=== PATIENT | male | born 1950 | race Caucasian/White ===

== ENCOUNTER 2024-07-05 09:30 | Inpatient (IN) | payer MEDICARE, BC, SELFPAY ==
[2024-07-05] VITALS (17 sets, daily range): BP systolic 84–118; BP diastolic 55–80; PULSE 81–126; RESP 19–98; TEMP 36.1–36.9; O2SAT 97–100; BMI 21.8
--- NOTE | 2024-07-05 09:54 | EKG_ITS ---
[facility] Test Date: 2024-07-05 Pat Name: JUAN ANTONIO COELLO Department: Room: - Gender: Male Parole Agent: : [id number] Requested By: Berenice Stoner ([facility]) Lorenzo Order Number: [id number] Reading MD: Berenice Stoner ([facility]) Lorenzo Measurements Intervals [place] Rate: 129 P: 73 [place]: 135 QRS: 241 QRSD: 134 T: 64 QT: 328 QTc: 481 Interpretive Statements SINUS TACHYCARDIA MARKED RIGHT AXIS DEVIATION [QRS AXIS > 100] RIGHT BUNDLE BRANCH BLOCK [120+ ms QRS DURATION, UPRIGHT V1, 40+ ms S IN I/aVL/V4/V5/V6] No previous ECG available for comparison /store/S0/[id number].pdf
--- NOTE | 2024-07-05 09:54 | XR_ITS ---
Examination: PA lateral chest 2 views TECHNIQUE: Upright PA lateral chest 2 views Exam date and time: July 05, 2024 10:10 AM Comparison October 01, 2015 INDICATIONS: Onset chest pain today. FINDINGS: Diffuse right lung pneumonia Isolated scattered nodular opacities in the left lung No major cardiac enlargement IMPRESSION: Prominent diffuse right lung pneumonia
--- NOTE | 2024-07-05 09:55 | PD.EDRME ---
Rapid Medical Screening Exam RME Arrival date/time: 07/05/24 09:30 Is a 74-year-old male who presents to the emergency department with complaints of shortness of breath,. I have greeted and performed a focused initial assessment of this patient. Initial appropriate labs ordered at this time. A comprehensive ED assessment and evaluation of the patient and analysis of all test and completion of medical decision making process will be conducted by additional ED provider. Chief Complaint: Shortness of Breath/Dyspnea Time Seen by Provider: 07/05/24 09:41 Vital signs: Vital Signs Temperature 98.0 F 07/05/24 09:53 Pulse Rate 126 H 07/05/24 09:53 Respiratory Rate 22 H 07/05/24 09:53 Blood Pressure 93/57 L 07/05/24 09:53 Pulse Oximetry (%) 97 07/05/24 09:53 Oxygen Delivery Method Room Air 07/05/24 09:53
--- NOTE | 2024-07-05 10:21 | EDNOTE_ITS ---
ED SOB =RME/HPI General Chief Complaint: Shortness of Breath/Dyspnea Stated Complaint: SOB, COUGH, CONGESTION, TARRY STOOL Time Seen by Provider: 07/05/24 09:41 Arrival date/time: 07/05/24 09:30 RME / HPI RME / HPI Narrative: 07/05/24 09:30 Is a 74-year-old male who presents to the emergency department with complaints of shortness of breath,. I have greeted and performed a focused initial assessment of this patient. Initial appropriate labs ordered at this time. A comprehensive ED assessment and evaluation of the patient and analysis of all test and completion of medical decision making process will be conducted by additional ED provider. DR. LINDQUIST MAIN ED EVALUATION 74 year old male with history of CAD s/p PCI, hypertension, COPD presents to the ED for complaint of shortness of breath and cough beginning 2 weeks ago. Describes feeling he does not get enough air with no known modifying factors. Reportedly consulted with PCP Dr. Sotelo 2 days ago (07/03) and was prescribed Azythromycin which he began. Patient additionally complains of black tarry stools accompanied by abdominal pain beginning yesterday, totaling 3 episodes in the last 24 hours. Denies any history GI bleeds. Denies fevers, chills, sweats, chest pain, diarrhea, or urinary symptoms. additionally reports patient has lost 14 lbs in the last 4 months. Social hx: Active tobacco smoker Related Data Home Medications ?Medication ?Instructions ?Recorded ?Confirmed Trazodone * (DESYREL *) 100 mg PO HS #0 tabs 09/30/15 11/14/19 amlodipine 5 mg tablet (Norvasc) 5 mg PO QDAY #0 tabs 09/30/15 11/14/19 atorvastatin 10 mg tablet (Lipitor) 10 mg PO QDAY #0 tabs 09/30/15 11/14/19 benazepril 40 mg tablet (Lotensin) 40 mg PO QDAY #0 tabs 09/30/15 11/14/19 citalopram 40 mg tablet (Celexa) 40 mg PO QDAY #0 tabs 09/30/15 11/14/19 clopidogrel 75 mg tablet (Plavix) 75 mg PO QDAY #0 tabs 09/30/15 11/14/19 famotidine 20 mg tablet (Pepcid) 20 mg PO QAM #0 tabs 09/30/15 11/14/19 Allergies Allergy/AdvReac Type Severity Reaction Status Date / Time No Known Allergies Allergy Verified 11/14/19 07:23 Review of Systems Review of Systems Narrative Review of Systems: GEN: No fever, no chills, no weight loss EYES: No discharge, no visual changes, no pain HEENT: No ear pain, no congestion, no sore throat PULM: + shortness of breath, +cough CV: No chest pain, no palpitations GI: No nausea, no vomiting, no diarrhea, + pain, +black tarry stools, no constipation : No frequency, no urgency and no dysuria MUSC/SKEL No joint pain, no back pain SKIN: No rash PSYCH: No hallucinations, no depression HEME/LYMPH: No easy bleeding or bruising tendencies NEURO: No weakness, no headache Past Medical History Past Medical History CARDIAC: Positive Hypercholesterolemia and Hypertension RESPIRATORY: Positive Chronic Obstructive Pulmonary Disease (COPD) ENT: Positive Cataracts OTHER HISTORY: Positive Blood Transfusions, Chicken Pox, Measles and Mumps Family History FAMILY HISTORY: Positive Family Cardiac Disorders (BROTHERS) and Family Cancer (MOTHER/ BREAST CA) Surgical History SURGICAL: Positive Coronary Stent (X1 STENT 03/2019) Social History SMOKING STATUS: Heavy (> 1 pack/day) ED Exam Narrative Physical exam: GENERAL APPEARANCE: Well hydrated, well nourished. Tachypneic. VITALS: All vitals were reviewed and the pulse ox is []% on room air which is normal according to my interpretation. HEENT: Normocephalic, atramatic, EOMI, EACs are patent. There is no bulge or retraction. Throat without erythema or exudate. Moist oromucosa. No jaundice NECK: Supple, no JVD or bruits. CARDIOVASCULAR: Heart regular without S3-S4 or murmur. No rubs or gallops. LUNGS/CHEST: Clear to auscultation bilaterally. No rales, rhonchi, or wheezing. Normal inspection. ABDOMEN: Soft, nontender, with normal bowel sounds. No pulsatile masses. No rebound, rigidity, or guarding. No incarcerated hernia. Normal inspection and palpation. RECTAL EXAM: Rectal exam performed in presence of female nurse and scribe. Stool is black and tarry, guaiac strongly positive. EXTREMITIES: Normal inspection and palpation. No edema, clubbing, or cyanosis. Intact CSM SKIN: Warm and dry without rashes. Normal inspection. MUSCULOSKELETAL: Normal inspection. No gross deformity, full ROM all extremities NEURO: Alert and oriented x3. Cranial nerves II through XII grossly intact. There are no other motor or sensory deficits noted. PSYCHIATRIC: Normal mood and affect. No psychosis Course Quality Measures none Orders Category Date Time Status Bedside COVID-19 Antigen Test NOW Care 07/05/24 10:03 Active Bedside Influenza A&B Antigen Test NOW Care 07/05/24 10:03 Completed Assistant Professor Of Nursing STAT Care 07/05/24 09:54 Active Continuous Pulse Oximetry ONCE Care 07/05/24 09:54 Active EKG (ED ONLY) *Do not use* NOW Care 07/05/24 09:54 Completed Insert IV STAT Care 07/05/24 09:54 Active Saline [Insert IV] NOW Care 07/05/24 10:19 Active Transfuse,blood/blood products NOW Care 07/05/24 12:30 Active EKG (ED Only) Stat Exams 07/05/24 09:54 Draft XR chest 1V portable Stat Exams 07/05/24 09:54 Completed B-Type Natriuretic Peptide Stat Lab 07/05/24 10:17 Completed CBC Stat Lab 07/05/24 10:38 Completed Comprehensive Metabolic Panel Stat Lab 07/05/24 10:38 Completed Lipase Stat Lab 07/05/24 10:38 Completed Magnesium Stat Lab 07/05/24 10:38 Completed Partial Thromboplastin Time Stat Lab 07/05/24 10:38 Completed Prothrombin Time with INR Stat Lab 07/05/24 10:38 Completed Troponin I Stat Lab 07/05/24 10:38 Completed Type and Screen Stat Lab 07/05/24 10:38 Results prbc [Red Blood Cells] Stat Lab 07/05/24 10:38 Results 1 gm IV (PM) x1 Med 07/05/24 12:36 Ordered cefTRIAXone/D5w 1gm IV premix [Rocephin/D5w 1gm IV premix] 50 ml IV X1 Pantoprazole Inj [Protonix Inj] Med 07/05/24 10:33 Discontinued 40 mg IVP X1 ONE Sodium Chloride 0.9% 1000 ml [Ns] 1,000 ml Med 07/05/24 10:34 Discontinued IV 999 mls/hr Vital Signs Vital signs: Vital Signs Temperature 98.0 F 07/05/24 09:53 Pulse Rate 126 H 07/05/24 09:53 Respiratory Rate 22 H 07/05/24 09:53 Blood Pressure 93/57 L 07/05/24 09:53 Pulse Oximetry (%) 97 07/05/24 09:53 Oxygen Delivery Method Room Air 07/05/24 09:53 Shortness of Breath / Dyspnea MDM Narrative MDM Narrative:: Chest x-ray interpreted by me: Evidence of COPD. And scarring is present on the right side of the chest. Heart normal. Mediastinum normal. Normal bones. No CHF. No gross consolidation. No pneumothorax. CBC showing a white count of 20,000. Hemoglobin of 11. Platelet is adequate. Pro time is normal. PTT is negative. COVID-19 and influenza are negative. Magnesium is 2.7. Troponin negative. BNP is negative. Sodium is 133. BUN is 62 consistent with dehydration or upper GI bleed. Lipase is negative. Twelve-lead EKG at 1109 interpreted by me: Sinus rhythm. Heart rate 103. Right bundle branch block. No ST elevation or depression. No PVC. No STEMI. Regular rate and rhythm. When I saw the patient the first time, his blood pressure was 78 over palpable. We immediately gave him a liter of normal saline bolus. Blood pressure now is 92/55. Heart rate is still 103. I did rectal exam on him. We found the stool to be black tarry wiring is strongly positive. The rectal exam was done in the presence of his and nurses. We are going to transfuse him with 2 units of packed red blood cell. We are giving him IV Protonix. We gave him IV fluid 12:15 PM, I spoke to and discussed with Dr. Malave, GI specialist on-call. He agrees to consult on admission. 12:30 PM, I spoke to and discussed with Dr. Aceves, hospitalist on-call. He agreed to admit for further evaluation and treatment. Thank you Critical care time is approximately 35 minutes excluding any procedure. The high probability of sudden, clinically significant deterioration in the patient?s condition required the highest level of my preparedness to intervene urgently. The services I provided to this patient were to treat and/or prevent clinically significant deterioration. Services included the following: chart data review, reviewing nursing notes and/or old charts, documentation time, sap portal consultant collaboration regarding findings and treatment options, medication orders and management, direct patient care, vital sign assessments and ordering, interpreting and reviewing diagnostic studies and lab tests. Aggregate critical care time includes only time during which I was engaged in work directly related to the patient?s care, as described above, whether at bedside or elsewhere in the Emergency Department. It did not include time spent performing other reported procedures or the services of residents, students, nurses or physician assistants. Patient data External records reviewed:: [facility] previous records Clinical information provided by:: patient Social determinants that could affect healthcare access:: none Patient has the following chronic illnesses:: CAD s/p PCI, hypertension, COPD How is presenting disease/condition affected by chronic disease/condition?: exacerbated by Evaluation data The following diagnostics were reviewed and interpreted by me:: lab results, rad iology exam(s) and EKG tracing(s) Lab and/or radiology exams considered but not ordered:: None Interpretation Summary: Ordering Physician: Berenice Stoner Date of Service: 07/05/24 Procedure(s): XR chest 1V portable Accession Number(s): [id number] cc: Adrien Philip MD; Berenice Stoner~ Examination: PA lateral chest 2 views TECHNIQUE: Upright PA lateral chest 2 views Exam date and time: July 05, 2024 10:10 AM Comparison October 01, 2015 INDICATIONS: Onset chest pain today. FINDINGS: Diffuse right lung pneumonia Isolated scattered nodular opacities in the left lung No major cardiac enlargement IMPRESSION: Prominent diffuse right lung pneumonia Dictated By: Adrien Philip MD Signed By: <Electronically signed by Adrien Philip MD in OV> 07/05/24 1027 Medications / Prescriptions Medications or Prescriptions considered but not ordered:: None Medication administrations:: Medication Administration History Discontinued Medications Sodium Chloride (Ns) 1,000 mls @ 999 mls/hr IV .Q1H1M ONE Stop: 07/05/24 11:34 Last Infusion: 07/05/24 12:14 Dose: Infused Documented By: Admin: 07/05/24 10:34 Dose: 999 mls/hr Documented By: TM Pantoprazole Sodium (Pantoprazole Inj 40 Mg Vial) 40 mg IVP X1 ONE Stop: 07/05/24 10:34 Last Admin: 07/05/24 12:13 Dose: 40 mg Documented By: PAMELLA See above Consultations Consultation(s) initiated? (list below): Yes Consultation #1 (Physician, Specialty, Details): I spoke with medicine team as noted above. Diagnosis Shortness of Breath Differential Diagnosis: acute exacerbation of chronic obstructive airways disease, congestive heart failure, community acquired pneumonia and other (GI bleed ) Most likely diagnosis given after review of the tests above:: Community acquired pneumonia GI bleed Admission Indicated Admission indicated?: indicated Admission Request Was there a request for admission?: Yes Admission Attestation Admission request attestation: Discussed case with [] from Hospitalist service regarding admission. Discussed patients ED course, exam findings, labs, and radiology results. The Hospitalist [agrees,declines] to accept the patient for admission. Disposition Plan Disposition Plan: Admit Critical Care Time Critical Care Time Critical Care Time: Yes Total Critical Care Time (min.): 35 Attestation: The high probability of sudden, clinically significant deterioration in the patient's condition required the highest level of my preparedness to intervene urgently. The services I provided to this patient were to treat and/or prevent clinically significant deterioration. Services included the following: chart data review, reviewing nursing notes and/or old charts, documentation time, sap portal consultant collaboration regarding findings and treatment options, medication orders and management, direct patient care, vital sign assessments and ordering, interpreting and reviewing diagnostic studies and lab tests. Aggregate critical care time includes only time during which I was engaged in work directly related to the patient's care, as described above, whether at bedside or elsewhere in the Emergency Department. It did not include time spent performing other reported procedures or the services of residents, students, nurses or physician assistants. Discharge Plan Plan Patient Disposition: Admit Acute Care w/in Hospital Disposition Comment: Stable for admit Prescriptions/Referrals Prescriptions/Med Rec: No Action citalopram [Celexa] 40 MG tablet 40 mg PO QDAY Qty: 0 atorvastatin [Lipitor] 10 MG tablet 10 mg PO QDAY Qty: 0 clopidogrel [Plavix] 75 MG tablet 75 mg PO QDAY Qty: 0 amlodipine [Norvasc] 5 MG tablet 5 mg PO QDAY Qty: 0 famotidine [Pepcid] 20 MG tablet 20 mg PO QAM Qty: 0 Patient Comments: TO SUPPRESS GASTRIC ACID SECRETION benazepril [Lotensin] 40 MG tablet 40 mg PO QDAY Qty: 0 Trazodone * (DESYREL *) 100 MG tablet 100 mg PO HS Qty: 0 Referrals: Phuc Sotelo MD [Primary Care Provider] - In 1 week Problem List Clinical Impression: GI bleed, Community acquired pneumonia Patient/Caregiver Discharge Instructions Print Language: Ethiopian Stand Alone Forms: [facility]anca Award Info., Patient Portal Info Letter
[2024-07-05] MEDS: SODIUM CHLORIDE 0.9% 1000 ML 1,000 ML 999 ML IV ×3 (10:34→15:53)
[2024-07-05 10:48] LABS: Basophils # (Auto) 0.1 Thou/mm3 (0.0-0.2); Basophils % (Auto) 1 % (0-2.5); Eosinophils % (Auto) 0 % (0-10); Hematocrit 32.8 % (41.0-53.0); Hemoglobin 10.9 g/dL (13.5-16.0); Immature Granulocytes % (Auto) 3 % (0-0); Immature Granulocytes Auto 0.57 Thou/mm3 (0.00-0.00); Lymphocytes # (Auto) 2.1 Thou/mm3 (1.0-4.8); Lymphocytes % (Auto) 11 % (10-50); Mean Corpuscular HGB Conc 33.2 g/dl (31.0-37.0); Mean Corpuscular Hemoglobin 29.9 pg (25.0-35.0); Mean Corpuscular Volume 90 fL (80-100); Monocytes # (Auto) 1.6 Thou/mm3 (0.0-0.8); Monocytes % (Auto) 8 % (0-12); Neutrophils # (Auto) 15.7 Thou/mm3 (1.8-7.7); Neutrophils % (Auto) 78 % (37-80); Nucleated Red Blood Cell % 0 /100 WBC (0); Platelet Count 325 Thou/mm3 (140-440); RDW Standard Deviation 44.1 fL (35.1-43.9); Red Blood Count 3.65 Miln/mm3 (4.50-5.90); White Blood Count 20.2 Thou/mm3 (3.8-10.6)
[2024-07-05 11:02] LABS: Partial Thromboplastin Time 22.5 Seconds (22.0-36.0); Prothrombin Time 11.3 Seconds (9.0-12.2)
[2024-07-05 11:13] LABS: B-Type Natriuretic Peptide < 20 pg/mL (0-100)
[2024-07-05 11:22] LABS: Alanine Aminotransferase 15 U/L (10-49); Albumin, Serum 4.4 gm/dL (3.4-4.8); Albumin/Globulin Ratio 1.9 (1.2-2.2); Alkaline Phosphatase 430 U/L (46-116); Anion Gap 9 (7-16); Aspartate Amino Transferase 24 U/L (0-34); BUN/Creatinine Ratio 56 Ratio (12-20); Bilirubin,Total 0.4 mg/dL (0.3-1.2); Blood Urea Nitrogen 62 mg/dL (9-23); Calcium 9.7 mg/dL (8.3-10.6); Calcium (Corrected) 9.7 mg/dL (8.5-10.1); Carbon Dioxide 23.6 mMol/L (20.0-31.0); Chloride 100 mMol/L (98-107); Creatinine (Component) 1.1 mg/dL (0.6-1.3); Estimated Creatinine Clearance 56.8 mL/min (>60); Globulin 2.3 gm/dL (2.3-3.5); Glucose 150 mg/dL (74-106); Lipase 31 U/L (12-53); Magnesium 2.7 mg/dL (1.6-2.6); Osmolality,Calculated 286 (275-295); Potassium 4.9 mMol/L (3.4-5.1); Sodium 133 mMol/L (136-145); Total Protein 6.7 gm/dL (5.7-8.2); Troponin I < 0.020 ng/mL (0.0-0.045); eGFR > 60 See Note
[2024-07-05] MEDS: PANTOPRAZOLE INJ 40 MG VIAL IVP ×2 (12:13→20:56)
[2024-07-05] MEDS: cefTRIAXone/D5w 1gm IV premix 50 ML IV (13:34)
--- NOTE | 2024-07-05 14:11 | PC.CM ---
Balbina STONE introduced self, role, and reason for visit to patient and discussed limits of confidentialty. At bedside was patient's , Roslyn Da Silva whom patient provided consent to remain in the room. Patient confirmed information on demographics and reports he lives at home with his . Prior to coming to the hospital the patient was able to complete his own ADLs and was ambulatory without assitive device. Patient's primary care provider is Dr. Sotelo. Patient uses [facility] for prescription medication. Upon discharge patient plans to return back home with the support of his . employee services manager to remain available for any discharge needs.
--- NOTE | 2024-07-05 14:14 | PC.NURSE ---
attempted report 2x @ 1410 RN unavailable at this time
--- NOTE | 2024-07-05 15:00 | PC.NURSE ---
This RN and fellow [employer]ER took pt up to floor, pt remained connected to tele, VSS in route. Pts the blood portion of patients transfusion ended in the elevator, this RN clamped the blood and let the connected NS flush the rest of the blood into the patient. Once up to the floor, call light pressed and a floor staff came to room. No issues during transport.
--- NOTE | 2024-07-05 15:30 | ESHP_ITS ---
Addendum History & Physical Addendum Date of report being addended: 07/05/24 Narrative: Attending's attestation: I reviewed labs, imaging, EKG, home medications and prior available records. Face to face evaluation was performed by me. I have personally examined the patient and discussed assessment and plan with the IM team. I reviewed the resident note and agree with the plan with exceptions as below. 74-year-old male with history of CAD status post stenting on Plavix, and hyperte nsion, who presented with a chief complaint of shortness of breath and productive cough. He also reported melena. He was found to have sepsis secondary to right-sided pneumonia and GI bleed. Sepsis secondary to right-sided pneumonia: Start the patient on IV ceftriaxone/azithromycin. Send blood cultures. Sent cocci IgM. Continue IV fluids. GI bleed: Likely upper. In the setting of Plavix use. Stop Plavix. Start Protonix IV. Consulted GI: Recommended keeping the patient n.p.o. for EGD. Acute anemia: In setting of GI bleed. Hemoglobin is above the transfusion threshold at this moment. Workup of GI bleed as above. Monitor H&H. CAD status post stenting: Holding Plavix.
--- NOTE | 2024-07-05 16:39 | ESHP_ITS ---
<Statement entered by Juan Pizano DO - 07/05/24 20:39> Senior attestation: Patient was examined and case was reviewed with team including attending physician. Note reviewed, I agree with most of its contents and agree with the patient's care. Additional comments as follow: Shortly after admission and while on hospital floors, rapid response team was called for hypotension, MAP ~65 which improved to 74 upon on second BP measurement. Patient denies any changes to symptoms, no pains or difficulty breathing. Physical exam unremarkable and not different from exam in ED. Patient appeared clinically dehydrated, an additional 1L NS bolus was ordered. Juan Pizano DO PGY-3 <Statement entered by Ilir Dixon MD - 07/05/24 18:33> Senior Resident Attestation: I supervised/discussed management plan with pricing intern physician Dr. Rodriguez, and was involved in the care of this patient. I personally saw and examined the patient and discussed the assessment and plan with the entire medicine team, including my attending. I agree with the assessment and plan as documented. Patient is a 74 years old male with past medical history of hypertension, CAD s/p PCI, history of CVA with residual deficit came to the ED complaining of black stool. FOBT was positive, GI was consulted, he was started on protonix and anticoagulation was held. CXR showed pneumonia and he met SIRS criteria for sepsis and was started on ceftriaxone and azithromycin. He was given 2L boluses and was started on maintains IVF. Patient's care was discussed with attending physician, Dr. Aceves. Ilir Dixon MD PGY-2. Documentation for date of: 07/05/24 HPI History of Present Illness History of present illness: Mr. 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 Patient states that he has been having shortness of breath and cough with phlegm, runny nose, and chest congestion for the past 2 weeks and the primary care physician had had ordered an x-ray with findings consistent of pneumonia and he was prescribed azithromycin. Patient states that he took azithromycin twice on Tuesday and on Tuesday he noted the black tarry stools with mild abdominal pain and his primary care physician instructed him to decrease the dose to 1 yesterday. But he continued to have additional episodes of black tarry stools which prompted him to come to the ED. Patient denies prior history of melena or hematochezia. Patient's also reports that in the last 4 months he has lost approximately 14 pounds, patient says that this is because of poor appetite, denies satiety. Patient states that several years ago he was found to have hemoglobin of 4.6 for which he received 10 units of blood. But denies any other history of low hemoglobin on routine CBCs done by any of his physicians. Patient denies chest pain, dizziness, syncopal episodes, nausea, vomiting or abdominal pain. ED course: In the ED patient on arrival patient blood pressure was 93/57, pulse 126, respirations 22. Patient's labs included WBC 20.2, Hgb 10.9, HCT 32.8, sodium 133, magnesium 2.7, alkaline phosphatase 430. Chest x-ray showed prominent diffuse right lung pneumonia and isolated scattered nodular opacities in the left lung. EKG findings showed sinus tachycardia with heart rate 129 In the ED patient received 1L bolus normal saline, Rocephin x 1 and pantoprazole 40mg IVP x 1, Dr. Malave was consulted for GI recommendations. PMH: Hypertension, history of CVA CAD s/p PCI in 2019, COPD, depression PSH: PCI SH: Active tobacco smoker (smokes 10 cigarettes/day since the age of 17), occasionally drinks alcohol, denies illicit drugs use Home Meds: Benazepril 40mg daily Clopidogrel 75mg daily metoprolol daily amlodipine 10mg daily rosuvastatin 40mg daily Tamsulosin 0.4mg twice daily Finasteride 5mg daily Famotidine 20mg daily Trazodone 100mg daily Mirtazapine 15mg daily Review of Systems Review of Systems Systems Reviewed: All systems reviewed, normal except as documented Exam Vital Signs Temp Pulse Resp BP Pulse Ox O2 Del Method 97.6 F 95 20 92/62 99 Room Air 07/05/24 16:08 07/05/24 16:08 07/05/24 16:08 07/05/24 16:08 07/05/24 14:38 07/05/24 14:38 Narrative Exam GENERAL: A&Ox3 . Awake, Not in acute distress, patient is very short of breath NEURO: weigh boss grossly intact, moves extremities x4 HEENT: Atraumatic, Normocephalic. mucous membranes moist. Eyes open, symmetrical, & clear HEART: Normal Heart Sounds LUNGS: Clear to auscultation ABDOMEN: soft, non-distended, non-tender, bowel sounds heard, no guarding or rebound tenderness SKIN: No Rash or ecchymoses EXTREMITIES: No edema, tenderness, able to move all 4 extremities, pedal pulses palpated Results: Labs 07/10/24 05:15 07/10/24 05:15 Labs: Short CBC 07/05/24 Range/Units 10:38 WBC 20.2 H (3.8-10.6) Thou/mm3 Hgb 10.9 L (13.5-16.0) g/dL Hct 32.8 L (41.0-53.0) % Plt Count 325 (140-440) Thou/mm3 BMP 07/05/24 10:38 Sodium 133 L Potassium 4.9 Chloride 100 Carbon Dioxide 23.6 BUN 62 H Creatinine 1.1 Glucose 150 H Calcium 9.7 Cardiac Enzymes 07/05/24 Range/Units 10:38 Troponin I < 0.020 (0.0-0.045) ng/mL Liver Function 07/05/24 Range/Units 10:38 Total Bilirubin 0.4 (0.3-1.2) mg/dL AST 24 (0-34) U/L ALT 15 (10-49) U/L Alkaline Phosphatase 430 H (46-116) U/L Albumin 4.4 (3.4-4.8) gm/dL Quality Measures Quality Measures none Advance care planning discussed with:: patient Medications Home Medications and Allergies Home Medications ?Medication ?Instructions ?Recorded ?Confirmed ?Type Trazodone * (DESYREL *) 100 mg PO HS #0 tabs 09/30/15 07/06/24 History benazepril 40 mg tablet (Lotensin) 40 mg PO QDAY #0 tabs 09/30/15 07/06/24 History citalopram 40 mg tablet (Celexa) 40 mg PO QDAY #0 tabs 09/30/15 11/14/19 History clopidogrel 75 mg tablet (Plavix) 75 mg PO QDAY #0 tabs 09/30/15 07/06/24 History famotidine 20 mg tablet (Pepcid) 20 mg PO QAM #0 tabs 09/30/15 07/06/24 History amlodipine 10 mg tablet 10 mg PO HS 07/06/24 07/06/24 History finasteride 5 mg tablet 5 mg PO HS 07/06/24 07/06/24 History metoprolol succinate 50 mg 50 mg PO DAILY 07/06/24 07/06/24 History tablet,extended release 24 hr mirtazapine 15 mg tablet 15 mg PO HS 07/06/24 07/06/24 History rosuvastatin 40 mg tablet 40 mg PO HS 07/06/24 07/06/24 History tamsulosin 0.4 mg capsule 0.4 mg PO QDAY 07/06/24 07/06/24 History Allergies Allergy/AdvReac Type Severity Reaction Status Date / Time No Known Allergies Allergy Verified 11/14/19 07:23 Visit Medications Azithromycin (Azithromycin 250 Mg Tablet) 250 mg PO QDAY JADE Stop: 07/08/24 15:44 Ceftriaxone Sodium/Dextrose (Rocephin/D5w 1gm Iv Premix) 50 mls @ 100 mls/hr IV QDAY JADE Stop: 07/13/24 08:59 Sodium Chloride (Ns) 1,000 mls @ 100 mls/hr IV .Q10H JADE Stop: 07/06/24 15:35 Sodium Chloride (Ns) 1,000 mls @ 999 mls/hr IV .Q1H1M ONE Stop: 07/05/24 16:49 Last Admin: 07/05/24 15:53 Dose: 999 mls/hr Pantoprazole Sodium (Pantoprazole Inj 40 Mg Vial) 40 mg IVP BID JADE Stop: 08/04/24 20:59 Discontinued Medications Sodium Chloride (Ns) 1,000 mls @ 999 mls/hr IV .Q1H1M ONE Stop: 07/05/24 11:34 Last Infusion: 07/05/24 12:14 Dose: Infused Ceftriaxone Sodium/Dextrose (Rocephin/D5w 1gm Iv Premix) 50 mls @ 100 mls/hr IV X1 ONE Stop: 07/05/24 13:05 Last Infusion: 07/05/24 13:34 Dose: Infused Sodium Chloride (Ns) 1,000 mls @ 999 mls/hr IV .Q1H1M ONE Stop: 07/05/24 14:42 Last Admin: 07/05/24 14:09 Dose: 999 mls/hr Pantoprazole Sodium (Pantoprazole Inj 40 Mg Vial) 40 mg IVP X1 ONE Stop: 07/05/24 10:34 Last Admin: 07/05/24 12:13 Dose: 40 mg Assessment & Plan Plan Mr. 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 Patient states that he has been having shortness of breath and cough with phlegm, runny nose, and chest congestion for the past 2 weeks and the primary care physician had had ordered an x-ray with findings consistent of pneumonia and he was prescribed azithromycin. #Sepsis 2/2 #Right-sided pneumonia #Leukocytosis -SIRS 3/4 - tachycardia, tachyapnea, leukocytosis -Chest x-ray showed prominent diffuse right lung pneumonia and isolated scattered nodular opacities in the left lung. Plan: -Patient received 3L bolus of normal saline -1 L normal saline maintenance fluid -Rocephin and azithromycin 15mg daily 07/05 -Blood cultures pending #Orthostatic hypotension -Although patient has primary hypertension, when he gets up from lying position his blood pressure drops. -when Pt. was getting out of bed from laying position his BP drop to 84/58. Laying down blood pressure is 118/62 plan: -Hold blood pressure medications and BPH medications #Acute anemia in the setting of #GI bleed-likely upper -Patient reports 3 episodes of melena -Hemoglobin on admission was 10.9, Hct 32.8. patient's baseline is Hgb14 Plan: -Type and crossmatch odered -IV fluids- 3L NS bolus given, 1LNS maintence -GI consulted- appreciate Dr. Malave's recommendation -IV Protonix 40mg BID ordered -NPO -avoid chemical anticoagualtion -trend H-H Q8Hrs #Primary Hypertension #CAD status post PCI - Hold patient's home medication: Metoprolol, amlodipine, benazepril clopidogrel #Depression -Resume home trazodone and mirtazapine #BPH -Hold home finasteride and tamsulosin due to orthostatic hypotension episodes #History of CVA -Patient has a history of CVA approximately 4 to 5 years ago with residual weakness in the left hand Disposition: Medsurg for management of Sepsis and GI bleed DVT Prophylaxis: SCD QSHIFT GI Prophylaxis: Pantoprozol-40 IV BID Diet: Cardiac or Diabetic Diet, carbohydrate consistent Code status: Full Assessment and plan discussed with my senior resident Dr. Pizano & attending physician Dr. Yola Rodriguez (PGY-1)- Internal medicine resident Attending Provider Attestation/Addendum I reviewed labs, imaging, EKG, home medications and prior available records. Face to face evaluation was performed by me. I have personally examined the patient and discussed assessment and plan with the IM team. I reviewed the resident note and agree with the plan with exceptions as below. Please see my addendum in the separate note for the date of 07/05.
[2024-07-05] MEDS: NICOTINE PATCH 14 MG/24 HR PATCH.TD24 TOP (17:00)
[2024-07-05] MEDS: SODIUM CHLORIDE 0.9% 1000 ML 1,000 ML 100 ML IV (17:00)
--- NOTE | 2024-07-05 19:55 | XR_ITS ---
Examination: AP chest single view Technique: AP portable upright chest single view Exam date and time: July 05, 2024 2020 hrs. Comparison July 05, 2024 1009 hrs. Indications: Onset SOB today. Findings: Diffuse pneumonia right lung Mild prominence cardiac contour with prominent vascular congestion Probable septal edema Impression: Diffuse right lung pneumonia Mild heart failure
--- NOTE | 2024-07-05 19:58 | EKG_ITS ---
[facility] Test Date: 2024-07-05 Pat Name: JUAN ANTONIO COELLO Department: Room: S380-A Gender: Male [employer]: PEPPER : 1950 Requested By: Avery Chu Order Number: [id number] Reading MD: Avery Chu Measurements Intervals [place] Rate: 91 P: 65 MO: 154 QRS: -81 QRSD: 132 T: 65 QT: 380 QTc: 468 Interpretive Statements SINUS RHYTHM WITH FREQUENT VENTRICULAR PREMATURE COMPLEXES RIGHT BUNDLE BRANCH BLOCK [120+ ms QRS DURATION, UPRIGHT V1, 40+ ms S IN I/aVL/V4/V5/V6] LEFT ANTERIOR FASCICULAR BLOCK [QRS AXIS <= -45, QR IN I, RS IN II] Compared to ECG 07/05/2024 10:01:32 Ventricular premature complex(es) now present Left anterior fascicular block now present Sinus tachycardia no longer present Right-axis deviation no longer present /store/S0/[id number]/[id number].pdf
[2024-07-05] MEDS: ALBUTEROL/IPRATROPIUM (Duoneb) RT SOL 3 ML NEBU INH ×2 (20:01→23:45)
--- NOTE | 2024-07-05 20:29 | EVENTNT_ITS ---
Documentation for date of: 07/05/24 Event Note Event Note: Rapid response was called at 1951 due to hypotension 84/62 and shortness of breath. Upon arrival patient was hemodynamically stable, blood pressure was recycled, MAP was above 70. Patient was saturating 96% in room air. Chest x- ray along with a EKG was ordered. Physical exam was positive for mild wheezing, breathing treatment was given. At the end of the call, blood pressure was 116/66, patient was saturating 98 % in room air. Denied any chest pain, palpitation,or any other assiciated symptoms. Family was at bedside, plan was explained. Will follow-up with a chest x-ray and EKG. Patient care was discussed with attending physician Dr. Felipa Huerta MD PGY-2 I have carefully reviewed this document. Due to imperfections in the voice software, there could be grammatical errors including phonetic/typographic errors. This in no way compromises the medical care the patient is receiving
[2024-07-05 20:36] LABS: Lactate (Lactic Acid) 3.1 mMol/L (0.4-2.0)
[2024-07-05 21:08] LABS: Hematocrit 32.9 % (41.0-53.0); Hemoglobin 10.8 g/dL (13.5-16.0)
--- NOTE | 2024-07-05 21:16 | PD.IMCONS ---
HPI Data of Consult Requesting Physician: Omkar Aceves MD Primary Care Provider: Phuc Sotelo MD Consult Narrative Reason for consult: Melena occult GI bleeding, strongly positive stool for Hemoccult History of present illness: 74 years old male brought into the emergency room with shortness of breath also had 2-day history of black tarry stools and rectal examination showed black tarry stools strongly Hemoccult positive Hemoglobin hematocrit 10.9 and 32.8 Platelet count of 3 and 25,000 INR 1.0 And BUN/creatinine 62 and 1.1 Patient does take Plavix for underlying coronary artery disease status post PCI His other medical problems include hypertension and COPD cc:: cc: Omkar Aceves MD Review of Systems Review of Systems Systems Reviewed: All systems reviewed, normal except as documented Past Medical History Surgical History OTHER SURGICAL HX: As in the history of present illness Meds Home Medications and Allergies Home Medications ?Medication ?Instructions ?Recorded ?Confirmed ?Type Trazodone * (DESYREL *) 100 mg PO HS #0 tabs 09/30/15 11/14/19 History amlodipine 5 mg tablet (Norvasc) 5 mg PO QDAY #0 tabs 09/30/15 11/14/19 History atorvastatin 10 mg tablet (Lipitor) 10 mg PO QDAY #0 tabs 09/30/15 11/14/19 History benazepril 40 mg tablet (Lotensin) 40 mg PO QDAY #0 tabs 09/30/15 11/14/19 History citalopram 40 mg tablet (Celexa) 40 mg PO QDAY #0 tabs 09/30/15 11/14/19 History clopidogrel 75 mg tablet (Plavix) 75 mg PO QDAY #0 tabs 09/30/15 11/14/19 History famotidine 20 mg tablet (Pepcid) 20 mg PO QAM #0 tabs 09/30/15 11/14/19 History Allergies Allergy/AdvReac Type Severity Reaction Status Date / Time No Known Allergies Allergy Verified 11/14/19 07:23 Exam Vital Signs Temp Pulse Resp BP Pulse Ox O2 Del Method 97.5 F 98 21 H 118/62 100 Room Air 07/05/24 17:20 07/05/24 20:02 07/05/24 20:02 07/05/24 17:20 07/05/24 20:02 07/05/24 14:38 Constitutional Comments: Chronically ill-appearing Routine Respiratory Exam Comments: Normal to auscultation Routine Abdominal Exam Comments: Soft nontender Results Labs 07/05/24 20:17 07/05/24 10:38 Labs: Short CBC 07/05/24 07/05/24 Range/Units 10:38 20:17 WBC 20.2 H (3.8-10.6) Thou/mm3 Hgb 10.9 L 10.8 L (13.5-16.0) g/dL Hct 32.8 L 32.9 L (41.0-53.0) % Plt Count 325 (140-440) Thou/mm3 BMP 07/05/24 10:38 Sodium 133 L Potassium 4.9 Chloride 100 Carbon Dioxide 23.6 BUN 62 H Creatinine 1.1 Glucose 150 H Calcium 9.7 Cardiac Enzymes 07/05/24 Range/Units 10:38 Troponin I < 0.020 (0.0-0.045) ng/mL Liver Function 07/05/24 Range/Units 10:38 Total Bilirubin 0.4 (0.3-1.2) mg/dL AST 24 (0-34) U/L ALT 15 (10-49) U/L Alkaline Phosphatase 430 H (46-116) U/L Albumin 4.4 (3.4-4.8) gm/dL Assessment and Plan Additional Assessment & Plan Additional Plan: # Occult GI bleeding in the form of melena #. FOBT positive # Acute posthemorrhagic anemia Plan Serial CBC IV Protonix Consent obtained for fiberoptic esophagogastroduodenoscopy with possible therapeutic intervention under intravenous moderate sedation possible biopsy scheduled for tomorrow Other medical problems include # Coronary artery status post PCI # Essential hypertension # COPD Thank you very much for the opportunity to participate in the care of this patient
[2024-07-05] MEDS: MELATONIN 3 MG TABLET PO (21:48)
[2024-07-05 23:34] LABS: Reflex Lactate? Y
[2024-07-06] VITALS (18 sets, daily range): BP systolic 95–154; BP diastolic 59–98; PULSE 79–119; RESP 14–98; TEMP 36.4–37; O2SAT 92–98
[2024-07-06 00:20] LABS: Lactic Acid, 3 HR 3.3 mMol/L (0.4-2.0)
[2024-07-06] MEDS: ACETAMINOPHEN 325 MG TABLET 650 MG PO (03:13)
[2024-07-06] MEDS: SODIUM CHLORIDE 0.9% 1000 ML 1,000 ML 100 ML IV (03:59)
[2024-07-06 05:51] LABS: Lactate (Lactic Acid) 3.8 mMol/L (0.4-2.0)
[2024-07-06 05:59] LABS: Basophils # (Auto) 0.1 Thou/mm3 (0.0-0.2); Basophils % (Auto) 1 % (0-2.5); Eosinophils % (Auto) 0 % (0-10); Hematocrit 30.3 % (41.0-53.0); Hemoglobin 10.3 g/dL (13.5-16.0); Immature Granulocytes % (Auto) 2 % (0-0); Immature Granulocytes Auto 0.15 Thou/mm3 (0.00-0.00); Lymphocytes # (Auto) 1.1 Thou/mm3 (1.0-4.8); Lymphocytes % (Auto) 12 % (10-50); Mean Corpuscular Hemoglobin 29.9 pg (25.0-35.0); Mean Corpuscular Volume 88 fL (80-100); Monocytes # (Auto) 0.9 Thou/mm3 (0.0-0.8); Monocytes % (Auto) 10 % (0-12); Neutrophils # (Auto) 7.2 Thou/mm3 (1.8-7.7); Neutrophils % (Auto) 76 % (37-80); Nucleated Red Blood Cell % 0 /100 WBC (0); Platelet Count 131 Thou/mm3 (140-440); RDW Standard Deviation 45.6 fL (35.1-43.9); Red Blood Count 3.45 Miln/mm3 (4.50-5.90); White Blood Count 9.5 Thou/mm3 (3.8-10.6)
[2024-07-06] MEDS: SODIUM CHLORIDE 0.9% 1000 ML 1,000 ML 120 ML IV ×2 (06:12→15:53)
[2024-07-06 06:26] LABS: Alanine Aminotransferase 14 U/L (10-49); Albumin, Serum 3.6 gm/dL (3.4-4.8); Alkaline Phosphatase 351 U/L (46-116); Anion Gap 8 (7-16); Aspartate Amino Transferase 21 U/L (0-34); BUN/Creatinine Ratio 49 Ratio (12-20); Bilirubin,Total 0.4 mg/dL (0.3-1.2); Blood Urea Nitrogen 49 mg/dL (9-23); Calcium 8.7 mg/dL (8.3-10.6); Carbon Dioxide 20.6 mMol/L (20.0-31.0); Chloride 109 mMol/L (98-107); Estimated Creatinine Clearance 62.5 mL/min (>60); Globulin 1.8 gm/dL (2.3-3.5); Glucose 120 mg/dL (74-106); Magnesium 2.4 mg/dL (1.6-2.6); Osmolality,Calculated 289 (275-295); Potassium 4.9 mMol/L (3.4-5.1); Sodium 138 mMol/L (136-145); Total Protein 5.4 gm/dL (5.7-8.2); eGFR > 60 See Note
[2024-07-06 08:49] LABS: Reflex Lactate? Y
[2024-07-06] MEDS: cefTRIAXone/D5w 1gm IV premix 50 ML IV (09:50)
[2024-07-06] MEDS: NICOTINE PATCH 14 MG/24 HR PATCH.TD24 TOP (09:50)
[2024-07-06] MEDS: PANTOPRAZOLE INJ 40 MG VIAL IVP ×2 (09:50→20:55)
[2024-07-06 12:20] LABS: Reflex Lactate? Y
[2024-07-06] MEDS: DOXYCYCLINE INJ 100 MG in SODIUM CHLORIDE 0.9% (P) 100 ML IV ×2 (12:26→20:55)
[2024-07-06 12:35] LABS: Hematocrit 33.1 % (41.0-53.0); Hemoglobin 11.3 g/dL (13.5-16.0)
[2024-07-06 13:44] LABS: Cocci Serology, IgM Negative (Negative)
--- NOTE | 2024-07-06 14:08 | ESCONSULT_ITS ---
<Statement entered by Vinicio Spencer MD - 07/08/24 20:09> I personally examined the patient appears to be doing worse is had a history of longstanding CAD stent placement more than several years ago stent is widely patent for use of angiogram came to the hospital GI bleeding with melena possible upper GI bleeding endoscopy is pending. Agree with the treatment plan recommendation continue to monitor the patient closely appears to be short of breath also JVD could be fluid overload versus other etiologies. I evaluated the patient agree with the treatment plan recommendation as documented by PGY 2 Dr. 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 Patient also endorsed shortness of breath, cough with phlegm and runny nose with chest congestion from past 2 weeks. Patient was given azithromycin as outpatient for pneumonia seen on chest x-ray. He he also endorsed abdominal pain. Patient's reported that he has lost 14 pounds of weight with poor appetite. In the ED, patient's blood pressure was soft he was tachycardic and tachypneic. Initial labs revealed leukocytosis, normocytic anemia, mildly elevated ALP. Chest x-ray showed prominent diffuse right lung pneumonia and isolated scattered nodular opacities in the left lung. EKG showed sinus tachycardia, RBBB with heart rate 129. PMH: Hypertension, history of CVA CAD s/p PCI in 2019, COPD, depression PSH: PCI SH: Active tobacco smoker (smokes 10 cigarettes/day since the age of 17), occasionally drinks alcohol, denies illicit drugs use Cardiology team consulted due to recurrent hypotension, history of CAD post stents on Plavix and antihypertensives. Patient was seen and examined at the bedside. Patient is scheduled to get endoscopy per GI specialist. Primary team managing the patient with IV antibiotic therapy Rocephin and doxycycline. Continuing PPI therapy for GI bleed workup. Labs revealed hemoglobin stable at 11.3. Chemistry panel showed BUN 49 creatinine 1.0. Lactic acid uptrending at 4.0. Cocci IgM negative. Blood cultures pending. Recommended to stop Plavix and hold antihypertensive given soft blood pressure and sepsis. Given that patient has a history of PCI 4-5 years ago would benefit to stop Plavix. Continue treating infection given likely contributing factor for hypotension.F/u EGD results. Recent Echo from 2023 showed EF 67%a and nuclear scan was negative for any ischemia. cc:: cc: Omkar Aceves MD Review of Systems Review of Systems Systems Reviewed: All systems reviewed, normal except as documented Past Medical History Past Medical History CARDIAC: Positive Hypercholesterolemia and Hypertension RESPIRATORY: Positive Chronic Obstructive Pulmonary Disease (COPD) ENT: Positive Cataracts OTHER HISTORY: Positive Blood Transfusions, Chicken Pox, Measles and Mumps Family History FAMILY HISTORY: Positive Family Cardiac Disorders (BROTHERS) and Family Cancer (MOTHER/ BREAST CA) Surgical History SURGICAL: Positive Coronary Stent (X1 STENT 03/2019) OTHER SURGICAL HX: As in the history of present illness Social History SMOKING STATUS: Heavy (> 1 pack/day) Exam Vital Signs Temp Pulse Resp BP Pulse Ox O2 Del Method 97.8 F 103 H 16 116/83 98 Room Air 07/06/24 12:00 07/06/24 12:00 07/06/24 12:00 07/06/24 12:00 07/06/24 12:00 07/06/24 12:00 Narrative Exam GENERAL: A&Ox3 . 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 mucous membranes moist. Eyes open, symmetrical, & clear HEART: Normal Heart Sounds LUNGS: Clear to auscultation ABDOMEN: soft, non-distended, non-tender, bowel sounds heard, no guarding or rebound tenderness SKIN: No Rash or ecchymoses EXTREMITIES: No edema, tenderness, able to move all 4 extremities, pedal pulses palpated Results Labs 07/06/24 11:59 07/06/24 05:38 Labs: Short CBC 07/05/24 07/06/24 07/06/24 Range/Units 20:17 05:38 11:59 WBC 9.5 D (3.8-10.6) Thou/mm3 Hgb 10.8 L 10.3 L 11.3 L (13.5-16.0) g/dL Hct 32.9 L 30.3 L 33.1 L (41.0-53.0) % Plt Count 131 L D (140-440) Thou/mm3 BMP 07/06/24 05:38 Sodium 138 Potassium 4.9 Chloride 109 H Carbon Dioxide 20.6 BUN 49 H Creatinine 1.0 Glucose 120 H Calcium 8.7 Liver Function 07/06/24 Range/Units 05:38 Total Bilirubin 0.4 (0.3-1.2) mg/dL AST 21 (0-34) U/L ALT 14 (10-49) U/L Alkaline Phosphatase 351 H D (46-116) U/L Albumin 3.6 D (3.4-4.8) gm/dL Quality Measures Quality Measures VTE prophylaxis (SCDs) Advance care planning discussed with:: patient Medications Home Medications and Allergies Home Medications ?Medication ?Instructions ?Recorded ?Confirmed ?Type Trazodone * (DESYREL *) 100 mg PO HS #0 tabs 09/30/15 07/06/24 History benazepril 40 mg tablet (Lotensin) 40 mg PO QDAY #0 tabs 09/30/15 07/06/24 History citalopram 40 mg tablet (Celexa) 40 mg PO QDAY #0 tabs 09/30/15 11/14/19 History clopidogrel 75 mg tablet (Plavix) 75 mg PO QDAY #0 tabs 09/30/15 07/06/24 History famotidine 20 mg tablet (Pepcid) 20 mg PO QAM #0 tabs 09/30/15 07/06/24 History amlodipine 10 mg tablet 10 mg PO HS 07/06/24 07/06/24 History finasteride 5 mg tablet 5 mg PO HS 07/06/24 07/06/24 History metoprolol succinate 50 mg 50 mg PO DAILY 07/06/24 07/06/24 History tablet,extended release 24 hr mirtazapine 15 mg tablet 15 mg PO HS 07/06/24 07/06/24 History rosuvastatin 40 mg tablet 40 mg PO HS 07/06/24 07/06/24 History tamsulosin 0.4 mg capsule 0.4 mg PO QDAY 07/06/24 07/06/24 History Allergies Allergy/AdvReac Type Severity Reaction Status Date / Time No Known Allergies Allergy Verified 11/14/19 07:23 Visit Medications Acetaminophen (Acetaminophen Supp 650 Mg Supp) 650 mg [place] Q6HR PRN PRN Reason: FEVER>101.5 Stop: 08/04/24 16:55 Albuterol/Ipratropium (Albuterol/Ipratropium (Duoneb) Rt Zamzam 3 Ml Nebu) 3 ml INH Q2HR PRN PRN Reason: SHORTNESS OF BREATH OR WHEEZE Stop: 08/04/24 21:59 Last Admin: 07/05/24 23:45 Dose: 3 ml Ceftriaxone Sodium/Dextrose (Rocephin/D5w 1gm Iv Premix) 50 mls @ 100 mls/hr IV QDAY [facility] Stop: 07/13/24 08:59 Last Admin: 07/06/24 09:50 Dose: 100 mls/hr Sodium Chloride (Ns) 1,000 mls @ 120 mls/hr IV .Q8H20M [facility] Stop: 08/05/24 06:09 Last Admin: 07/06/24 06:12 Dose: 120 mls/hr Doxycycline Hyclate 100 mg/ (Sodium Chloride) 100 mls @ 100 mls/hr IV BID [facility] Stop: 07/13/24 11:29 Last Admin: 07/06/24 12:26 Dose: 100 mls/hr Sodium Chloride (Ns) 1,000 mls @ 999 mls/hr IV .Q1H1M ONE Stop: 07/06/24 14:48 Melatonin (Melatonin 3 Mg Tablet) 3 mg PO HS PRN PRN Reason: insomnia Stop: 08/05/24 20:59 Last Admin: 07/05/24 21:48 Dose: 3 mg Mirtazapine (Mirtazapine 15 Mg Tablet) 15 mg PO HS [facility] Stop: 08/05/24 08:59 Nicotine (Nicotine Patch 14 Mg/24 Hr Patch.Td24) 14 mg TOP QDAY [facility] Stop: 08/04/24 16:44 Last Admin: 07/06/24 09:50 Dose: 14 mg Ondansetron HCl (Ondansetron Inj 2 Mg/Ml Inj 2 Ml) 4 mg IV Q6H PRN; Protocol PRN Reason: NAUSEA OR VOMITING Stop: 08/04/24 16:55 Pantoprazole Sodium (Pantoprazole Inj 40 Mg Vial) 40 mg IVP BID [facility] Stop: 08/04/24 20:59 Last Admin: 07/06/24 09:50 Dose: 40 mg Sennosides (Senna Tablet) 1 tab PO QDAY PRN; Protocol PRN Reason: constipation Stop: 08/04/24 16:55 Trazodone HCl (Trazodone Hcl 50 Mg Tablet) 100 mg PO HS [facility] Stop: 08/04/24 20:59 Last Admin: 07/05/24 21:35 Dose: Not Given Discontinued Medications Acetaminophen (Acetaminophen Supp 650 Mg Supp) 650 mg [place] Q6HR PRN PRN Reason: [id number] Stop: 08/04/24 16:55 Acetaminophen (Acetaminophen 325 Mg Tablet) 650 mg PO X1 ONE Stop: 07/06/24 03:04 Last Admin: 07/06/24 03:13 Dose: 650 mg Albuterol/Ipratropium (Albuterol/Ipratropium (Duoneb) Rt Zamzam 3 Ml Nebu) 3 ml INH X1 ONE Stop: 07/05/24 19:58 Last Admin: 07/05/24 20:01 Dose: 3 ml Azithromycin (Azithromycin 250 Mg Tablet) 250 mg PO QDAY [facility] Stop: 07/08/24 15:44 Last Admin: 07/06/24 12:09 Dose: Not Given Sodium Chloride (Ns) 1,000 mls @ 999 mls/hr IV .Q1H1M ONE Stop: 07/05/24 11:34 Last Infusion: 07/05/24 12:14 Dose: Infused Ceftriaxone Sodium/Dextrose (Rocephin/D5w 1gm Iv Premix) 50 mls @ 100 mls/hr IV X1 ONE Stop: 07/05/24 13:05 Last Infusion: 07/05/24 13:34 Dose: Infused Sodium Chloride (Ns) 1,000 mls @ 999 mls/hr IV .Q1H1M ONE Stop: 07/05/24 14:42 Last Admin: 07/05/24 14:09 Dose: 999 mls/hr Sodium Chloride (Ns) 1,000 mls @ 100 mls/hr IV .Q10H JADE Stop: 07/06/24 15:35 Last Admin: 07/06/24 03:59 Dose: 100 mls/hr Sodium Chloride (Ns) 1,000 mls @ 999 mls/hr IV .Q1H1M ONE Stop: 07/05/24 16:49 Last Admin: 07/05/24 15:53 Dose: 999 mls/hr Mirtazapine (Mirtazapine 15 Mg Tablet) 15 mg PO QDAY JADE Stop: 08/05/24 08:59 Last Admin: 07/06/24 10:01 Dose: Not Given Pantoprazole Sodium (Pantoprazole Inj 40 Mg Vial) 40 mg IVP X1 ONE Stop: 07/05/24 10:34 Last Admin: 07/05/24 12:13 Dose: 40 mg Assessment & Plan Plan This 74-year-old male with past medical history significant for hypertension, CAD s/p PCI, 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 Patient also endorsed shortness of breath, cough with phlegm and runny nose with chest congestion from past 2 weeks. Patient was given azithromycin as outpatient for pneumonia seen on chest x-ray. He he also endorsed abdominal pain. Patient's reported that he has lost 14 pounds of weight with poor appetite. In the ED, patient's blood pressure was soft he was tachycardic and tachypneic. Initial labs revealed leukocytosis, normocytic anemia, mildly elevated ALP. Chest x-ray showed prominent diffuse right lung pneumonia and isolated scattered nodular opacities in the left lung. EKG showed sinus tachycardia, RBBB with heart rate 129. # CAD post stents on Plavix # Orthostatic hypotension # History of hypertension ?Patient admitted for GI bleed workup. Presenting with black tarry stool. GI specialist following the case. Cardiology team consulted for recurrent hypotension episodes and for anticoagulation management. ? Patient is not complaining of chest pain or shortness of breath. Troponin I was negative. ? Echo from 2019 showed EF 65-70%. Patient underwent coronary angiogram in 2019 showing mild atherosclerotic plaque. No significant stenosis. ?Recent Echo from 2023 showed EF 67%a and nuclear scan was negative for any ischemia. Plan: ? Stop Plavix completely ? Hold antihypertensive due to soft blood pressure likely related to sepsis ? Monitor vitals ? Will follow-up on EGD results ? Treating underlying sepsis due to right-sided community-acquired pneumonia with antibiotics ? Daily labs ? Trend H&H Other active problems: #Sepsis likely secondary to #Right-sided community-acquired pneumonia # Lactic acidosis type B #Normocytic hypochromic anemia #Leukocytosis # Thrombocytopenia #Orthostatic hypotension #Acute anemia in the setting of #GI bleed-likely upper #Depression #BPH #History of CVA -- Rest of the management as per primary care team. Thank you very much for consulting cardiology team. Continue holding amlodipine, benazepril, and metoprolol succinate for now.DC Plavix. Continue treating community-acquired pneumonia infection. Plan of care discussed with studio technician video operator, Dr. Tj Eden MD, PGY 2
[2024-07-06] MEDS: SODIUM CHLORIDE 0.9% 1000 ML 1,000 ML 999 ML IV (14:19)
--- NOTE | 2024-07-06 14:31 | PC.SS ---
Rounding note: pending EGD, receiving IV abx.
[2024-07-06 15:32] LABS: Reflex Lactate? Y
[2024-07-06 15:35] LABS: Lactate (Lactic Acid) 3.4 mMol/L (0.4-2.0)
--- NOTE | 2024-07-06 18:07 | ESPR_ITS ---
<Statement entered by Juan Pizano DO - 07/06/24 21:57> Senior attestation: Patient was examined and case was reviewed with team including attending physician. Note reviewed, I agree with most of its contents and agree with the patient's care. Lactic acid noticed to uptrend today, will give fluid boluses and trend lactic acid while continuing antibiotics. Azithromycin has been stopped as patient believes it may have contributed to his symptoms, switched to doxycycline and will continue rocephin. Juan Pizano DO PGY-3 Documentation for date of: 07/06/24 Subjective Subjective Interval history: 07/06: Overnight patient has not a rapid response for hypotension blood pressure was 84/62 and patient was having shortness of breath, patient received some breathing treatments and hemodynamic stable. This morning patient was seen and examined at bedside, patient was saturating well on room air. Patient endorses improvement in shortness of breath, denies chest pain, nausea, vomiting or abdominal pain. Patient states he feels much better and he can breathe comfortably. Denies any cough or wheezing. Patient requested that he would like to switch his azithromycin to something else because he believes that azithromycin is causing him the GI bleed. Patient has no other complaints Exam Vital Signs Temp Pulse Resp BP Pulse Ox O2 Del Method O2 Flow Rate 98.3 F 115 H 26 H 128/82 97 Room Air 3 07/06/24 16:00 07/06/24 18:05 07/06/24 18:05 07/06/24 18:05 07/06/24 18:05 07/06/24 16:00 07/06/24 18:05 Narrative Exam GENERAL: A&Ox3 . 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 mucous membranes moist. Eyes open, symmetrical, & clear HEART: Normal Heart Sounds LUNGS: Clear to auscultation ABDOMEN: soft, non-distended, non-tender, bowel sounds heard, no guarding or rebound tenderness SKIN: No Rash or ecchymoses EXTREMITIES: No edema, tenderness, able to move all 4 extremities, pedal pulses palpated Objective Labs 07/12/24 05:10 07/12/24 05:10 Labs: Laboratory Results - last 24 hr 07/05/24 07/05/2424 10:38 20:17 00:04 WBC RBC Hgb 10.8 L Hct 32.9 L MCV MCH MCHC RDW Std Deviation Plt Count Neut % (Auto) Lymph % (Auto) [place] % (Auto) Eos % (Auto) Baso % (Auto) Neut # (Auto) Lymph # (Auto) [place] # (Auto) Eos # (Auto) Baso # (Auto) Immature Gran # (Auto) Absolute Nucleated RBC Immature Gran % Nucleated RBC % Sodium Potassium Chloride Carbon Dioxide Anion Gap BUN Creatinine Estim Creat Clear Calc eGFR BUN/Creatinine Ratio Glucose Calculated Osmolality Lactic Acid 3.1 H 3.3 H Calcium Corrected Calcium Phosphorus Magnesium Total Bilirubin AST ALT Alkaline Phosphatase Total Protein Albumin Globulin Albumin/Globulin Ratio Coccidioides IgM Ab Crossmatch See Detail 07/06/24 07/06/24 07/06/24 05:38 09:05 11:59 WBC 9.5 D RBC 3.45 L Hgb 10.3 L 11.3 L Hct 30.3 L 33.1 L MCV 88 MCH 29.9 MCHC 34.0 RDW Std Deviation 45.6 H Plt Count 131 L D Neut % (Auto) 76 Lymph % (Auto) 12 [place] % (Auto) 10 Eos % (Auto) 0 Baso % (Auto) 1 Neut # (Auto) 7.2 Lymph # (Auto) 1.1 [place] # (Auto) 0.9 H Eos # (Auto) 0.0 Baso # (Auto) 0.1 Immature Gran # (Auto) 0.15 H Absolute Nucleated RBC 0.00 Immature Gran % 2 H Nucleated RBC % 0 Sodium 138 Potassium 4.9 Chloride 109 H Carbon Dioxide 20.6 Anion Gap 8 BUN 49 H Creatinine 1.0 Estim Creat Clear Calc 62.5 eGFR > 60 BUN/Creatinine Ratio 49 H Glucose 120 H Calculated Osmolality 289 Lactic Acid 3.8 H 3.0 H 4.0 H Calcium 8.7 Corrected Calcium 9.0 Phosphorus 4.0 Magnesium 2.4 Total Bilirubin 0.4 AST 21 ALT 14 Alkaline Phosphatase 351 H D Total Protein 5.4 L Albumin 3.6 D Globulin 1.8 L Albumin/Globulin Ratio 2.0 Coccidioides IgM Ab Negative Crossmatch 07/06/24 15:35 WBC RBC Hgb Hct MCV MCH MCHC RDW Std Deviation Plt Count Neut % (Auto) Lymph % (Auto) [place] % (Auto) Eos % (Auto) Baso % (Auto) Neut # (Auto) Lymph # (Auto) [place] # (Auto) Eos # (Auto) Baso # (Auto) Immature Gran # (Auto) Absolute Nucleated RBC Immature Gran % Nucleated RBC % Sodium Potassium Chloride Carbon Dioxide Anion Gap BUN Creatinine Estim Creat Clear Calc eGFR BUN/Creatinine Ratio Glucose Calculated Osmolality Lactic Acid 3.4 H Calcium Corrected Calcium Phosphorus Magnesium Total Bilirubin AST ALT Alkaline Phosphatase Total Protein Albumin Globulin Albumin/Globulin Ratio Coccidioides IgM Ab Crossmatch Quality Measures Quality Measures VTE prophylaxis (SCDs) Advance care planning discussed with:: patient Assessment & Plan Assessment Current Active Medications: Generic Name Dose Route Start Last Admin Trade Name Freq PRN Reason Stop Dose Admin Acetaminophen 650 mg 07/06/24 09:34 Acetaminophen Supp 650 Mg Supp MT 08/04/24 16:55 Q6HR PRN FEVER>101.5 Albuterol/Ipratropium 3 ml 07/05/24 22:00 07/05/24 23:45 Albuterol/Ipratropium (Duoneb) Rt Zamzam 3 Ml Nebu INH 08/04/24 21:59 3 ml Q2HR PRN Administration SHORTNESS OF BREATH OR WHEEZE Ceftriaxone Sodium/Dextrose 50 mls @ 100 mls/hr 07/06/24 09:00 07/06/24 09:50 Rocephin/D5w 1gm Iv Premix IV 07/13/24 08:59 100 mls/hr QDAY JADE Administration Sodium Chloride 1,000 mls @ 120 mls/hr 07/06/24 06:10 07/06/24 15:53 Ns IV 08/05/24 06:09 120 mls/hr .Q8H20M JADE Administration Doxycycline Hyclate 100 mg/ 100 mls @ 100 mls/hr 07/06/24 11:30 07/06/24 12:26 Sodium Chloride IV 07/13/24 11:29 100 mls/hr BID JADE Administration Melatonin 3 mg 07/05/24 21:10 07/05/24 21:48 Melatonin 3 Mg Tablet PO 08/05/24 20:59 3 mg HS PRN Administration insomnia Mirtazapine 15 mg 07/06/24 21:00 Mirtazapine 15 Mg Tablet PO 08/05/24 08:59 HS JADE Nicotine 14 mg 07/05/24 16:45 07/06/24 09:50 Nicotine Patch 14 Mg/24 Hr Patch.Td24 TOP 08/04/24 16:44 14 mg QDAY JADE Administration Ondansetron HCl 4 mg 07/05/24 16:56 Ondansetron Inj 2 Mg/Ml Inj 2 Ml IV 08/04/24 16:55 Q6H PRN NAUSEA OR VOMITING Protocol Pantoprazole Sodium 40 mg 07/05/24 21:00 07/06/24 09:50 Pantoprazole Inj 40 Mg Vial IVP 08/04/24 20:59 40 mg BID JADE Administration Sennosides 1 tab 07/05/24 16:56 Senna Tablet PO 08/04/24 16:55 QDAY PRN constipation Protocol Trazodone HCl 100 mg 07/05/24 21:00 07/05/24 21:35 Trazodone Hcl 50 Mg Tablet PO 08/04/24 20:59 Not Given HS JADE Plan Plan Mr. 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 Patient states that he has been having shortness of breath and cough with phlegm, runny nose, and chest congestion for the past 2 weeks and the primary care physician had had ordered an x-ray with findings consistent of pneumonia and he was prescribed azithromycin. #Sepsis 2/ #Right-sided pneumonia #Leukocytosis # Lactic acidosis -SIRS 3/4 - tachycardia, tachyapnea, leukocytosis -Chest x-ray showed prominent diffuse right lung pneumonia and isolated scattered nodular opacities in the left lung. -On admission lactic acid 3.1--> 07/06 4.4 ->3.4 Plan: -Patient received 3L bolus of normal saline -1 L normal saline maintenance fluid -Rocephin 07/05 -doxycycline 100 Mg twice daily 07/06 -Blood cultures pending -Cocci - pending -Trending lactic acid #Orthostatic hypotension -Although patient has primary hypertension, when he gets up from lying position his blood pressure drops. -when Pt. was getting out of bed from laying position his BP drop to 84/58. Laying down blood pressure is 118/62 plan: -Hold blood pressure medications and BPH medications #Symptomatic acute anemia #GI bleed-likely upper -Patient reports 3 episodes of melena -Hemoglobin on admission was 10.9, Hct 32.8. patient's baseline is Hgb14 Plan: -Type and crossmatch odered -IV fluids- 3L NS bolus given, 1LNS maintence -GI consulted- appreciate Dr. Malave's recommendation -IV Protonix 40mg BID ordered -NPO -avoid chemical anticoagualtion -trend H-H Q8Hrs #Primary Hypertension #CAD status post PCI - Hold patient's home medication: Metoprolol, amlodipine, benazepril, clopidogrel #Depression -Resume home trazodone and mirtazapine #BPH -Hold home finasteride and tamsulosin due to orthostatic hypotension episodes #History of CVA -Patient has a history of CVA approximately 4 to 5 years ago with residual weakness in the left hand Disposition: Medsurg for management of Sepsis and GI bleed DVT Prophylaxis: SCD QSHIFT GI Prophylaxis: Pantoprozol-40 IV BID Diet: Cardiac or Diabetic Diet, carbohydrate consistent Code status: Full Assessment and plan discussed with my senior resident Dr. Pizano & attending physician Dr. 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 Currently plan to continue IVF and a biotic therapy and plan for GI intervention. I reviewed above note and agree with findings and plans. I have also personally examined the patient with medicine team and went over assessment and plan with medical team including sport internship and resident physician.
--- NOTE | 2024-07-06 18:13 | SUR.PHASEI ---
pt received from OR in recovery bay 5. pt breathing unlabored on 2l nc. v/s stable. report received from Evon CHÁVEZ.
[2024-07-06 18:35] LABS: Reflex Lactate? Y
--- NOTE | 2024-07-06 18:43 | SUR.PHASEI ---
pt awake and alert, breathing unlabored on room air. v/s stable. report called to Nisha CHÁVEZ. pt will be transferred to room at this time.
[2024-07-06 19:04] LABS: Lactic Acid, 3 HR 3.4 mMol/L (0.4-2.0)
[2024-07-06] MEDS: RINGERS LACTATED 1000 ML 500 ML 999 ML IV (20:06)
[2024-07-06] MEDS: traZODone HCL 50 MG TABLET 100 MG PO (20:55)
[2024-07-06] MEDS: MIRTAZAPINE 15 MG TABLET PO (20:55)
[2024-07-06 23:48] LABS: Lactate (Lactic Acid) 3.3 mMol/L (0.4-2.0)
[2024-07-07] VITALS (12 sets, daily range): BP systolic 116–135; BP diastolic 74–98; PULSE 71–123; RESP 16–95; TEMP 36.3–36.8; O2SAT 93–97; BMI 21.9
[2024-07-07 02:44] LABS: Reflex Lactate? Y
[2024-07-07 03:44] LABS: Lactic Acid, 3 HR 3.1 mMol/L (0.4-2.0)
[2024-07-07 03:48] LABS: Basophils # (Auto) 0.1 Thou/mm3 (0.0-0.2); Basophils % (Auto) 1 % (0-2.5); Eosinophils # (Auto) 0.1 Thou/mm3 (0.0-0.5); Eosinophils % (Auto) 1 % (0-10); Hematocrit 32.8 % (41.0-53.0); Immature Granulocytes % (Auto) 4 % (0-0); Immature Granulocytes Auto 0.43 Thou/mm3 (0.00-0.00); Lymphocytes # (Auto) 1.2 Thou/mm3 (1.0-4.8); Lymphocytes % (Auto) 10 % (10-50); Mean Corpuscular HGB Conc 33.5 g/dl (31.0-37.0); Mean Corpuscular Hemoglobin 30.6 pg (25.0-35.0); Mean Corpuscular Volume 91 fL (80-100); Monocytes % (Auto) 8 % (0-12); Neutrophils # (Auto) 9.7 Thou/mm3 (1.8-7.7); Neutrophils % (Auto) 78 % (37-80); Nucleated Red Blood Cell # 0.03 Thou/mm3 (0.00-0.00); Nucleated Red Blood Cell % 0 /100 WBC (0); Platelet Count 128 Thou/mm3 (140-440); RDW Standard Deviation 48.6 fL (35.1-43.9); White Blood Count 12.4 Thou/mm3 (3.8-10.6)
[2024-07-07 04:02] LABS: Collection Type, Urine Clean Catch
[2024-07-07 04:14] LABS: Alanine Aminotransferase 16 U/L (10-49); Albumin, Serum 3.6 gm/dL (3.4-4.8); Albumin/Globulin Ratio 1.9 (1.2-2.2); Alkaline Phosphatase 383 U/L (46-116); Anion Gap 9 (7-16); Aspartate Amino Transferase 30 U/L (0-34); BUN/Creatinine Ratio 26 Ratio (12-20); Bilirubin,Total 0.4 mg/dL (0.3-1.2); Blood Urea Nitrogen 21 mg/dL (9-23); Calcium 8.8 mg/dL (8.3-10.6); Calcium (Corrected) 9.1 mg/dL (8.5-10.1); Carbon Dioxide 19.4 mMol/L (20.0-31.0); Chloride 109 mMol/L (98-107); Creatinine (Component) 0.8 mg/dL (0.6-1.3); Estimated Creatinine Clearance 78.1 mL/min (>60); Globulin 1.9 gm/dL (2.3-3.5); Glucose 115 mg/dL (74-106); Osmolality,Calculated 277 (275-295); Sodium 137 mMol/L (136-145); Total Protein 5.5 gm/dL (5.7-8.2); eGFR > 60 See Note
[2024-07-07 04:16] LABS: Bilirubin,Urine Negative (Negative); Blood,Urine Negative (Negative); Clarity,Urine Clear (Clear/Hazy); Color,Urine Lt-Yellow (Lt Yel-Yel); Glucose, Urine Negative (Negative); Hyaline Casts,Urine < 1 /hpf (0-1); Ketones,Urine 1+ (Negative); Leukocyte Esterase,Urine Negative (Negative); Nitrite,Urine Negative (Negative); PH,Urine 5.5 (5.0-7.0); Protein,Urine Trace (Neg - Trace); RBC,Urine < 1 /hpf (0-3); Specific Gravity,Urine 1.027 (1.001-1.035); Squamous Epithelial Cell,Urine < 1 /hpf (0-5); Urobilinogen,Urine Negative mg/dL (0.0-1.0); WBC,Urine 3 /hpf (0-5)
[2024-07-07] MEDS: SODIUM CHLORIDE 0.9% 1000 ML 1,000 ML 120 ML IV ×2 (04:16→19:13)
[2024-07-07] MEDS: DOXYCYCLINE INJ 100 MG in SODIUM CHLORIDE 0.9% (P) 100 ML IV ×2 (09:55→20:22)
[2024-07-07] MEDS: NICOTINE PATCH 14 MG/24 HR PATCH.TD24 TOP (09:55)
[2024-07-07] MEDS: cefTRIAXone/D5w 1gm IV premix 50 ML IV (09:55)
[2024-07-07] MEDS: PANTOPRAZOLE INJ 40 MG VIAL IVP (09:55)
[2024-07-07] MEDS: METOPROLOL SUCCINATE XL 25 MG TABCR 50 MG PO (13:00)
--- NOTE | 2024-07-07 14:27 | XR_ITS ---
Examination: CTA chest, with intravenous contrast. CTA abdomen, with intravenous contrast. CTA pelvis, with intravenous contrast. 2-D sagittal and coronal reconstructions. 3-D reconstructions. Date and time of exam: July 07, 2024 at 1632 hrs. Indications: Abdominal pain and sepsis today, with gastrointestinal bleeding, clinical diagnosis mesenteric ischemia CTDI vol (mgy) 19.6 DLP (MGycm) 464 Technique: Multiple CTA images, 2.0 mm slice thickness, obtained chest, abdomen, pelvis, with the high-resolution 64 slice scanner. Knee is administered intravenously. Sagittal and coronal 2-D reconstructions are obtained. 3-D reconstructions, angiographic images are obtained. 3-D postprocessing, including vascular maximum intensity projections. Low dose protocols were performed. One or more of the following dose reduction techniques were used; automated exposure control, adjustment of the mA and/or KV according to patient size, use of iterative reconstruction technique. Findings: Pericardial effusion measuring up to 30 mm in thickness at the inferior left ventricle level Mild to moderate right mild left pleural effusion Cirrhosis liver irregular in contour with fatty infiltration 12 mm solid appearing inferior right lobe liver lesion axial image 76 Spleen is not enlarged Mild ascites Gastric mucosa appears diffusely thickened as well as thickening of the duodenal bulb Cholelithiasis, gallbladder wall is thickened Numerous pericaval periaortic lymph nodes, the largest pericaval lymph node 18 mm, the largest periaortic lymph node left lateral 20 mm Appendix is not diagnostically visualized Wall thickening of small bowel loops, suspicious for air droplets in the wall of small bowel loops Colonic diverticulosis Urinary bladder wall thickening anteriorly up to 7 mm with pericystic inflammatory change No contrast extravasation in the elementary tract There is no significant venous phase opacification of the mesenteric vein portal vein or inferior vena cava Aorta is not enlarged No hydronephrosis Lumbar stabilization lower 3 lumbar levels with advanced degenerative disc disease L5-S1 Impression: Pericardial effusion measuring up to 30 mm Cirrhosis, mild ascites Gastritis active duodenitis Suspicious for early small bowel ischemia, clinical correlation advised, consider surgical consultation Cystitis
--- NOTE | 2024-07-07 15:31 | ESPR_ITS ---
Documentation for date of: 07/07/24 Subjective Subjective Interval history: Hemoglobin hematocrit 11.0 and 32.8 Upper endoscopy showed GE junction ulceration and also mid esophageal ulceration Moderate gastritis No biopsies taken as patient is on Plavix and has an active GI bleed Exam Vital Signs Temp Pulse Resp BP Pulse Ox O2 Del Method O2 Flow Rate 97.8 F 116 H 16 118/80 95 Room Air 2 07/07/24 12:00 07/07/24 13:00 07/07/24 12:00 07/07/24 13:00 07/07/24 12:00 07/07/24 12:00 07/07/24 04:00 Constitutional Comments: Alert oriented Routine Respiratory Exam Comments: Normal to auscultation Objective Labs 07/07/24 03:31 07/07/24 03:31 Labs: Laboratory Results - last 24 hr 07/06/24 07/06/24 07/06/24 15:35 18:58 23:10 WBC RBC Hgb Hct MCV MCH MCHC RDW Std Deviation Plt Count Neut % (Auto) Lymph % (Auto) [place] % (Auto) Eos % (Auto) Baso % (Auto) Neut # (Auto) Lymph # (Auto) [place] # (Auto) Eos # (Auto) Baso # (Auto) Immature Gran # (Auto) Absolute Nucleated RBC Immature Gran % Nucleated RBC % Sodium Potassium Chloride Carbon Dioxide Anion Gap BUN Creatinine Estim Creat Clear Calc eGFR BUN/Creatinine Ratio Glucose Calculated Osmolality Lactic Acid 3.4 H 3.4 H 3.3 H Calcium Corrected Calcium Total Bilirubin AST ALT Alkaline Phosphatase Total Protein Albumin Globulin Albumin/Globulin Ratio Ur Collection Type Urine Color Urine Clarity Urine pH Ur Specific [place] Urine Protein Urine Glucose (UA) Urine Ketones Urine Blood Urine Nitrite Urine Bilirubin Urine Urobilinogen (Auto) Ur Leukocyte Esterase Urine RBC Urine WBC Ur Squamous Epith Cells Urine Bacteria Hyaline Casts 07/07/24 07/07/24 03:31 03:45 WBC 12.4 H RBC 3.60 L Hgb 11.0 L Hct 32.8 L MCV 91 MCH 30.6 MCHC 33.5 RDW Std Deviation 48.6 H Plt Count 128 L Neut % (Auto) 78 Lymph % (Auto) 10 [place] % (Auto) 8 Eos % (Auto) 1 Baso % (Auto) 1 Neut # (Auto) 9.7 H Lymph # (Auto) 1.2 [place] # (Auto) 1.0 H Eos # (Auto) 0.1 Baso # (Auto) 0.1 Immature Gran # (Auto) 0.43 H Absolute Nucleated RBC 0.03 H Immature Gran % 4 H Nucleated RBC % 0 Sodium 137 Potassium 5.0 Chloride 109 H Carbon Dioxide 19.4 L Anion Gap 9 BUN 21 Creatinine 0.8 Estim Creat Clear Calc 78.1 eGFR > 60 BUN/Creatinine Ratio 26 H Glucose 115 H Calculated Osmolality 277 Lactic Acid 3.1 H Calcium 8.8 Corrected Calcium 9.1 Total Bilirubin 0.4 AST 30 ALT 16 Alkaline Phosphatase 383 H D Total Protein 5.5 L Albumin 3.6 Globulin 1.9 L Albumin/Globulin Ratio 1.9 Ur Collection Type Clean Catch Urine Color Lt-Yellow Urine Clarity Clear Urine pH 5.5 Ur Specific [place] 1.027 Urine Protein Trace Urine Glucose (UA) Negative Urine Ketones 1+ A Urine Blood Negative Urine Nitrite Negative Urine Bilirubin Negative Urine Urobilinogen (Auto) Negative Ur Leukocyte Esterase Negative Urine RBC < 1 Urine WBC 3 Ur Squamous Epith Cells < 1 Urine Bacteria None Hyaline Casts < 1 Impressions Impression: # GE junction ulceration # Mid esophageal ulceration Advance diet Assessment & Plan A&P Narrative # Occult GI bleeding in the form of melena #. FOBT positive # Acute posthemorrhagic anemia Plan Serial CBC IV Protonix Consent obtained for fiberoptic esophagogastroduodenoscopy with possible therapeutic intervention under intravenous moderate sedation possible biopsy scheduled for tomorrow Other medical problems include # Coronary artery status post PCI # Essential hypertension # COPD Thank you very much for the opportunity to participate in the care of this patient Time Spent With Patient Time: Total time spent is greater than 50% in coordination of care (as documented) at patient's floor/unit and/or counseling patient:
--- NOTE | 2024-07-07 16:32 | ESPR_ITS ---
<Statement entered by Vinicio Spencer MD - 07/08/24 20:18> I personally evaluated the patient in [facility] floor appears to be acidotic persistently quite concerned that the patient has JVD venous distention possible heart failure versus volume overload versus other etiology such as pericardial effusion patient will be monitored closely a CT scan of the abdomen pelvis will be performed will monitor the patient and will reevaluate the patient tomorrow after CT scan is completed continue IV fluids for now IV antibiotics. I evaluated the patient with the PGY 2 Dr. 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 Patient also endorsed shortness of breath, cough with phlegm and runny nose with chest congestion from past 2 weeks. Patient was given azithromycin as outpatient for pneumonia seen on chest x-ray. He he also endorsed abdominal pain. Patient's reported that he has lost 14 pounds of weight with poor appetite. In the ED, patient's blood pressure was soft he was tachycardic and tachypneic. Initial labs revealed leukocytosis, normocytic anemia, mildly elevated ALP. Chest x-ray showed prominent diffuse right lung pneumonia and isolated scattered nodular opacities in the left lung. EKG showed sinus tachycardia, RBBB with heart rate 129. PMH: Hypertension, history of CVA CAD s/p PCI in 2019, COPD, depression PSH: PCI SH: Active tobacco smoker (smokes 10 cigarettes/day since the age of 17), occasionally drinks alcohol, denies illicit drugs use Cardiology team consulted due to recurrent hypotension, history of CAD post stents on Plavix and antihypertensives. Patient was seen and examined at the bedside. Patient is scheduled to get endoscopy per GI specialist. Primary team managing the patient with IV antibiotic therapy Rocephin and doxycycline. Continuing PPI therapy for GI bleed workup. Labs revealed hemoglobin stable at 11.3. Chemistry panel showed BUN 49 creatinine 1.0. Lactic acid uptrending at 4.0. Cocci IgM negative. Blood cultures pending. Recommended to stop Plavix and hold antihypertensive given soft blood pressure and sepsis. Given that patient has a history of PCI 4-5 years ago would benefit to stop Plavix. Continue treating infection given likely contributing factor for hypotension.F/u EGD results. Recent Echo from 2023 showed EF 67%a and nuclear scan was negative for any ischemia. 07/07/2024: Patient was seen and examined at the bedside. Patient's son was also present at the bedside. Patient reported that he was feeling loss of appetite and weight loss from last 4 months. Lactic acid down trended however remains elevated. Morning labs revealed leukocytosis, normocytic anemia. Chemistry panel showed mild acidosis with bicarb 19.4. Elevated ALP 383. Patient denied any abdominal pain. Recommended to continue IV antibiotic therapy for community-acquired pneumonia infection. Suggested to perform CTA abdomen to rule out mesenteric bowel ischemia. Recommended to discontinue fluids due to concern for fluid overload. No diuretic therapy recommended for now given lactic acidosis. Suggested to discontinue Plavix and antihypertensive. EGD showed esophageal ulcers at the GE junction, nonerosive gastritis, erythematous duodenopathy and GI specialist recommended to continue IV Protonix. Will likely follow on CTA abdomen results. All labs and orders were reviewed. Exam Vital Signs Temp Pulse Resp BP Pulse Ox O2 Del Method O2 Flow Rate 97.8 F 116 H 16 118/80 95 Room Air 2 07/07/24 12:00 07/07/24 13:00 07/07/24 12:00 07/07/24 13:00 07/07/24 12:00 07/07/24 12:00 07/07/24 04:00 Narrative Exam GENERAL: A&Ox3 . Awake, Not in acute distress, saturating well on room air. NEURO: keyboard operator grossly intact, moves extremities x4 HEENT: Atraumatic, Normocephalic. mucous membranes moist. Eyes open, symmetrical, & clear. Mild JVD HEART: regular rate and rhythm. S1/S2. No murmurs rubs or gallops LUNGS: Clear to auscultation. Tachypneic. ABDOMEN: soft, non-distended, non-tender, bowel sounds heard, no guarding or rebound tenderness SKIN: No Rash or ecchymoses EXTREMITIES: No edema, tenderness, able to move all 4 extremities, pedal pulses palpated Objective Labs 07/07/24 03:31 07/07/24 03:31 Labs: Laboratory Results - last 24 hr 07/06/24 07/06/24 07/07/24 18:58 23:10 03:31 WBC 12.4 H RBC 3.60 L Hgb 11.0 L Hct 32.8 L MCV 91 MCH 30.6 MCHC 33.5 RDW Std Deviation 48.6 H Plt Count 128 L Neut % (Auto) 78 Lymph % (Auto) 10 [place] % (Auto) 8 Eos % (Auto) 1 Baso % (Auto) 1 Neut # (Auto) 9.7 H Lymph # (Auto) 1.2 [place] # (Auto) 1.0 H Eos # (Auto) 0.1 Baso # (Auto) 0.1 Immature Gran # (Auto) 0.43 H Absolute Nucleated RBC 0.03 H Immature Gran % 4 H Nucleated RBC % 0 Sodium 137 Potassium 5.0 Chloride 109 H Carbon Dioxide 19.4 L Anion Gap 9 BUN 21 Creatinine 0.8 Estim Creat Clear Calc 78.1 eGFR > 60 BUN/Creatinine Ratio 26 H Glucose 115 H Calculated Osmolality 277 Lactic Acid 3.4 H 3.3 H 3.1 H Calcium 8.8 Corrected Calcium 9.1 Total Bilirubin 0.4 AST 30 ALT 16 Alkaline Phosphatase 383 H D Total Protein 5.5 L Albumin 3.6 Globulin 1.9 L Albumin/Globulin Ratio 1.9 Ur Collection Type Urine Color Urine Clarity Urine pH Ur Specific [place] Urine Protein Urine Glucose (UA) Urine Ketones Urine Blood Urine Nitrite Urine Bilirubin Urine Urobilinogen (Auto) Ur Leukocyte Esterase Urine RBC Urine WBC Ur Squamous Epith Cells Urine Bacteria Hyaline Casts 07/07/24 03:45 WBC RBC Hgb Hct MCV MCH MCHC RDW Std Deviation Plt Count Neut % (Auto) Lymph % (Auto) [place] % (Auto) Eos % (Auto) Baso % (Auto) Neut # (Auto) Lymph # (Auto) [place] # (Auto) Eos # (Auto) Baso # (Auto) Immature Gran # (Auto) Absolute Nucleated RBC Immature Gran % Nucleated RBC % Sodium Potassium Chloride Carbon Dioxide Anion Gap BUN Creatinine Estim Creat Clear Calc eGFR BUN/Creatinine Ratio Glucose Calculated Osmolality Lactic Acid Calcium Corrected Calcium Total Bilirubin AST ALT Alkaline Phosphatase Total Protein Albumin Globulin Albumin/Globulin Ratio Ur Collection Type Clean Catch Urine Color Lt-Yellow Urine Clarity Clear Urine pH 5.5 Ur Specific [place] 1.027 Urine Protein Trace Urine Glucose (UA) Negative Urine Ketones 1+ A Urine Blood Negative Urine Nitrite Negative Urine Bilirubin Negative Urine Urobilinogen (Auto) Negative Ur Leukocyte Esterase Negative Urine RBC < 1 Urine WBC 3 Ur Squamous Epith Cells < 1 Urine Bacteria None Hyaline Casts < 1 Quality Measures Quality Measures VTE prophylaxis (SCDs) Advance care planning discussed with:: patient Assessment & Plan Assessment Current Active Medications: Generic Name Dose Route Start Last Admin Trade Name Freq PRN Reason Stop Dose Admin Acetaminophen 650 mg 07/06/24 09:34 Acetaminophen Supp 650 Mg Supp DC 08/04/24 16:55 Q6HR PRN FEVER>101.5 Albuterol/Ipratropium 3 ml 07/05/24 22:00 07/05/24 23:45 Albuterol/Ipratropium (Duoneb) Rt Zamzam 3 Ml Nebu INH 08/04/24 21:59 3 ml Q2HR PRN Administration SHORTNESS OF BREATH OR WHEEZE Ceftriaxone Sodium/Dextrose 50 mls @ 100 mls/hr 07/06/24 09:00 07/07/24 09:55 Rocephin/D5w 1gm Iv Premix IV 07/13/24 08:59 100 mls/hr QDAY JADE Administration Sodium Chloride 1,000 mls @ 120 mls/hr 07/06/24 06:10 07/07/24 04:16 Ns IV 08/05/24 06:09 120 mls/hr .[id number] JADE Administration Doxycycline Hyclate 100 mg/ 100 mls @ 100 mls/hr 07/06/24 11:30 07/07/24 09:55 Sodium Chloride IV 07/13/24 11:29 100 mls/hr BID JADE Administration Melatonin 3 mg 07/05/24 21:10 07/05/24 21:48 Melatonin 3 Mg Tablet PO 08/05/24 20:59 3 mg HS PRN Administration insomnia Metoprolol Succinate 50 mg 07/07/24 12:15 07/07/24 13:00 Metoprolol Succinate Xl 25 Mg Tabcr PO 08/06/24 12:14 50 mg DAILY JADE Administration Mirtazapine 15 mg 07/06/24 21:00 07/06/24 20:55 Mirtazapine 15 Mg Tablet PO 08/05/24 08:59 15 mg HS JADE Administration Nicotine 14 mg 07/05/24 16:45 07/07/24 09:55 Nicotine Patch 14 Mg/24 Hr Patch.Td24 TOP 08/04/24 16:44 14 mg QDAY JADE Administration Ondansetron HCl 4 mg 07/05/24 16:56 Ondansetron Inj 2 Mg/Ml Inj 2 Ml IV 08/04/24 16:55 Q6H PRN NAUSEA OR VOMITING Protocol Pantoprazole Sodium 40 mg 07/07/24 21:00 Pantoprazole 40 Mg Tablet PO 08/06/24 20:59 BID JADE Sennosides 1 tab 07/05/24 16:56 Senna Tablet PO 08/04/24 16:55 QDAY PRN constipation Protocol Trazodone HCl 100 mg 07/05/24 21:00 07/06/24 20:55 Trazodone Hcl 50 Mg Tablet PO 08/04/24 20:59 100 mg HS JADE Administration Plan This 74-year-old male with past medical history significant for hypertension, CAD s/p PCI, 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 Patient also endorsed shortness of breath, cough with phlegm and runny nose with chest congestion from past 2 weeks. Patient was given azithromycin as outpatient for pneumonia seen on chest x-ray. He he also endorsed abdominal pain. Patient's reported that he has lost 14 pounds of weight with poor appetite. In the ED, patient's blood pressure was soft he was tachycardic and tachypneic. Initial labs revealed leukocytosis, normocytic anemia, mildly elevated ALP. Chest x-ray showed prominent diffuse right lung pneumonia and isolated scattered nodular opacities in the left lung. EKG showed sinus tachycardia, RBBB with heart rate 129. # CAD post stents on Plavix # Orthostatic hypotension # History of hypertension ?Patient admitted for GI bleed workup. Presenting with black tarry stool. GI specialist following the case. Cardiology team consulted for recurrent hypotension episodes and for anticoagulation management. ? Patient is not complaining of chest pain or shortness of breath. Troponin I was negative. ? Echo from 2019 showed EF 65-70%. Patient underwent coronary angiogram in 2019 showing mild atherosclerotic plaque. No significant stenosis. ?Recent Echo from 2023 showed EF 67%a and nuclear scan was negative for any ischemia. ?EGD showed nonerosive gastritis and esophageal ulcers. Plan: ?Follow-up on CTA abdomen to rule out mesenteric bowel ischemia ? Recommended to discontinue Plavix and stop antihypertensives ? Continue metoprolol succinate 50 mg once a day ?Recommended to stop fluid resuscitation given tachypnea seen on examination ? Continue Protonix 40 mg IV twice daily ? Treating underlying sepsis due to right-sided community-acquired pneumonia with antibiotics ?Monitor vitals closely ? Daily labs #?Concern for bowel ischemia ?Patient denied any abdominal discomfort however lactic acid remain elevated Plan ? Follow-up on CTA abdomen ?Does not recommend any further fluid resuscitation ?Continue IV antibiotic therapy ?Monitor kidney functions postcontrast Other active problems: # Esophageal ulcers per EGD finding # Nonerosive gastritis #Sepsis likely secondary to #Right-sided community-acquired pneumonia # Lactic acidosis type B #Normocytic hypochromic anemia #Leukocytosis # Thrombocytopenia #Orthostatic hypotension #Acute anemia in the setting of #GI bleed-likely upper #Depression #BPH #History of CVA -- Rest of the management as per primary care team. Thank you very much for consulting cardiology team. Follow-up on CTA abdomen to rule out mesenteric bowel ischemia. Does not recommend to continue fluid resuscitation given concern for fluid overload. Stop Plavix and antihypertensives. Plan of care discussed with stock trader, Dr. Tj Eden MD, PGY 2
--- NOTE | 2024-07-07 19:07 | ESPR_ITS ---
Documentation for date of: 07/07/24 Subjective Subjective Interval history: 07/06: Overnight patient has not a rapid response for hypotension blood pressure was 84/62 and patient was having shortness of breath, patient received some breathing treatments and hemodynamic stable. This morning patient was seen and examined at bedside, patient was saturating well on room air. Patient endorses improvement in shortness of breath, denies chest pain, nausea, vomiting or abdominal pain. Patient states he feels much better and he can breathe comfortably. Denies any cough or wheezing. Patient requested that he would like to switch his azithromycin to something else because he believes that azithromycin is causing him the GI bleed. Patient has no other complaints 07/07: No overnight events. Pt is seen and examine at bedside. Pt endorses improvement on SOB form last night. Pt. is saturating on room air, pt denies chest pain, nausea, vomiting or abdominal pain.Pt states he was able to sleep last night because he was given him home trazadone, because melatonin does not help. Pt. has no complains. Exam Vital Signs Temp Pulse Resp BP Pulse Ox O2 Del Method O2 Flow Rate 97.4 F 106 H 16 124/87 H 97 Room Air 2 07/07/24 16:00 07/07/24 16:00 07/07/24 16:00 07/07/24 16:00 07/07/24 16:00 07/07/24 16:00 07/07/24 04:00 Narrative Exam GENERAL: A&Ox3 . 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 mucous membranes moist. Eyes open, symmetrical, & clear HEART: Normal Heart Sounds LUNGS: Clear to auscultation ABDOMEN: soft, non-distended, non-tender, bowel sounds heard, no guarding or rebound tenderness SKIN: No Rash or ecchymoses EXTREMITIES: No edema, tenderness, able to move all 4 extremities, pedal pulses palpated Objective Labs 07/12/24 05:10 07/12/24 05:10 Labs: Laboratory Results - last 24 hr 07/06/24 07/06/24 07/07/24 18:58 23:10 03:31 WBC 12.4 H RBC 3.60 L Hgb 11.0 L Hct 32.8 L MCV 91 MCH 30.6 MCHC 33.5 RDW Std Deviation 48.6 H Plt Count 128 L Neut % (Auto) 78 Lymph % (Auto) 10 [place] % (Auto) 8 Eos % (Auto) 1 Baso % (Auto) 1 Neut # (Auto) 9.7 H Lymph # (Auto) 1.2 [place] # (Auto) 1.0 H Eos # (Auto) 0.1 Baso # (Auto) 0.1 Immature Gran # (Auto) 0.43 H Absolute Nucleated RBC 0.03 H Immature Gran % 4 H Nucleated RBC % 0 Sodium 137 Potassium 5.0 Chloride 109 H Carbon Dioxide 19.4 L Anion Gap 9 BUN 21 Creatinine 0.8 Estim Creat Clear Calc 78.1 eGFR > 60 BUN/Creatinine Ratio 26 H Glucose 115 H Calculated Osmolality 277 Lactic Acid 3.4 H 3.3 H 3.1 H Calcium 8.8 Corrected Calcium 9.1 Total Bilirubin 0.4 AST 30 ALT 16 Alkaline Phosphatase 383 H D Total Protein 5.5 L Albumin 3.6 Globulin 1.9 L Albumin/Globulin Ratio 1.9 Ur Collection Type Urine Color Urine Clarity Urine pH Ur Specific [place] Urine Protein Urine Glucose (UA) Urine Ketones Urine Blood Urine Nitrite Urine Bilirubin Urine Urobilinogen (Auto) Ur Leukocyte Esterase Urine RBC Urine WBC Ur Squamous Epith Cells Urine Bacteria Hyaline Casts 07/07/24 03:45 WBC RBC Hgb Hct MCV MCH MCHC RDW Std Deviation Plt Count Neut % (Auto) Lymph % (Auto) [place] % (Auto) Eos % (Auto) Baso % (Auto) Neut # (Auto) Lymph # (Auto) [place] # (Auto) Eos # (Auto) Baso # (Auto) Immature Gran # (Auto) Absolute Nucleated RBC Immature Gran % Nucleated RBC % Sodium Potassium Chloride Carbon Dioxide Anion Gap BUN Creatinine Estim Creat Clear Calc eGFR BUN/Creatinine Ratio Glucose Calculated Osmolality Lactic Acid Calcium Corrected Calcium Total Bilirubin AST ALT Alkaline Phosphatase Total Protein Albumin Globulin Albumin/Globulin Ratio Ur Collection Type Clean Catch Urine Color Lt-Yellow Urine Clarity Clear Urine pH 5.5 Ur Specific [place] 1.027 Urine Protein Trace Urine Glucose (UA) Negative Urine Ketones 1+ A Urine Blood Negative Urine Nitrite Negative Urine Bilirubin Negative Urine Urobilinogen (Auto) Negative Ur Leukocyte Esterase Negative Urine RBC < 1 Urine WBC 3 Ur Squamous Epith Cells < 1 Urine Bacteria None Hyaline Casts < 1 Quality Measures Quality Measures VTE prophylaxis (SCDs) Advance care planning discussed with:: patient Assessment & Plan Assessment Current Active Medications: Generic Name Dose Route Start Last Admin Trade Name Freq PRN Reason Stop Dose Admin Acetaminophen 650 mg 07/06/24 09:34 Acetaminophen Supp 650 Mg Supp ME 08/04/24 16:55 Q6HR PRN FEVER>101.5 Albuterol/Ipratropium 3 ml 07/05/24 22:00 07/05/24 23:45 Albuterol/Ipratropium (Duoneb) Rt Zamzam 3 Ml Nebu INH 08/04/24 21:59 3 ml Q2HR PRN Administration SHORTNESS OF BREATH OR WHEEZE Ceftriaxone Sodium/Dextrose 50 mls @ 100 mls/hr 07/06/24 09:00 07/07/24 10:25 Rocephin/D5w 1gm Iv Premix IV 07/13/24 08:59 Infused QDAY JADE Infusion Sodium Chloride 1,000 mls @ 120 mls/hr 07/06/24 06:10 07/07/24 04:16 Ns IV 08/05/24 06:09 120 mls/hr .Q8H20M JADE Administration Doxycycline Hyclate 100 mg/ 100 mls @ 100 mls/hr 07/06/24 11:30 07/07/24 10:55 Sodium Chloride IV 07/13/24 11:29 Infused BID JADE Infusion Melatonin 3 mg 07/05/24 21:10 07/05/24 21:48 Melatonin 3 Mg Tablet PO 08/05/24 20:59 3 mg HS PRN Administration insomnia Metoprolol Succinate 50 mg 07/07/24 12:15 07/07/24 13:00 Metoprolol Succinate Xl 25 Mg Tabcr PO 08/06/24 12:14 50 mg DAILY JADE Administration Mirtazapine 15 mg 07/06/24 21:00 07/06/24 20:55 Mirtazapine 15 Mg Tablet PO 08/05/24 08:59 15 mg HS JADE Administration Nicotine 14 mg 07/05/24 16:45 07/07/24 09:55 Nicotine Patch 14 Mg/24 Hr Patch.Td24 TOP 08/04/24 16:44 14 mg QDAY JADE Administration Ondansetron HCl 4 mg 07/05/24 16:56 Ondansetron Inj 2 Mg/Ml Inj 2 Ml IV 08/04/24 16:55 Q6H PRN NAUSEA OR VOMITING Protocol Pantoprazole Sodium 40 mg 07/07/24 21:00 Pantoprazole 40 Mg Tablet PO 08/06/24 20:59 BID JADE Sennosides 1 tab 07/05/24 16:56 Senna Tablet PO 08/04/24 16:55 QDAY PRN constipation Protocol Trazodone HCl 100 mg 07/05/24 21:00 07/06/24 20:55 Trazodone Hcl 50 Mg Tablet PO 08/04/24 20:59 100 mg HS JADE Administration Plan Plan Mr. 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 Patient states that he has been having shortness of breath and cough with phlegm, runny nose, and chest congestion for the past 2 weeks and the primary care physician had had ordered an x-ray with findings consistent of pneumonia and he was prescribed azithromycin. #Sepsis 2/ #Right-sided pneumonia #Leukocytosis # Lactic acidosis -SIRS 3/4 - tachycardia, tachyapnea, leukocytosis -Chest x-ray showed prominent diffuse right lung pneumonia and isolated scattered nodular opacities in the left lung. -On admission lactic acid 3.1--> 07/06 4.4 ->3.4 -ordered CTA of abdomen to rule out mesenteric ischemia or colitis ischemia for persistent lactic acidosis Plan: -Patient received 3L bolus of normal saline -1 L normal saline maintenance fluid -Rocephin 07/05- -doxycycline 100 Mg twice daily 07/06- -Blood cultures pending -Cocci - pending -Trending lactic acid #Symptomatic acute anemia #GI bleed-likely upper -Patient reports 3 episodes of melena -Hemoglobin on admission was 10.9, Hct 32.8. patient's baseline is Hgb14 Plan: -Type and crossmatch odered -IV fluids- 3L NS bolus given, 1LNS maintence -GI consulted- appreciate Dr. Malave's recommendation -IV Protonix 40mg BID ordered -NPO -avoid chemical anticoagualtion -trend H-H Q8Hrs #Orthostatic hypotension -Although patient has primary hypertension, when he gets up from lying position his blood pressure drops. -when Pt. was getting out of bed from laying position his BP drop to 84/58. Laying down blood pressure is 118/62 plan: -Hold blood pressure medications and BPH medications #Primary Hypertension #CAD status post PCI - Hold patient's home medication: Metoprolol, amlodipine, benazepril, clopidogrel -Continue metoprolol succinate, hold other home antihypertensives for now #Depression -Resume home trazodone and mirtazapine #BPH -Hold home finasteride and tamsulosin due to orthostatic hypotension episodes #History of CVA -Patient has a history of CVA approximately 4 to 5 years ago with residual weakness in the left hand Disposition: Medsurg for management of Sepsis and GI bleed DVT Prophylaxis: SCD QSHIFT GI Prophylaxis: Pantoprozol-40 IV BID Diet: Cardiac or Diabetic Diet, carbohydrate consistent Code status: Full Assessment and plan discussed with my senior resident Dr. Pizano & attending physician Dr. 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 Currently plan to continue IVF and a biotic therapy and plan for GI intervention. I reviewed above note and agree with findings and plans. I have also personally examined the patient with medicine team and went over assessment and plan with medical team including international relations teacher and resident physician.
[2024-07-07] MEDS: MIRTAZAPINE 15 MG TABLET PO (20:22)
[2024-07-07] MEDS: PANTOPRAZOLE 40 MG TABLET PO (20:22)
[2024-07-07] MEDS: traZODone HCL 50 MG TABLET 100 MG PO (20:22)
[2024-07-08] VITALS (9 sets, daily range): BP systolic 105–122; BP diastolic 59–88; PULSE 91–115; RESP 18–98; TEMP 36.3–36.6; O2SAT 90–98
[2024-07-08] MEDS: SODIUM CHLORIDE 0.9% 1000 ML 1,000 ML 120 ML IV ×3 (04:40→23:52)
[2024-07-08 06:09] LABS: Basophils # (Auto) 0.1 Thou/mm3 (0.0-0.2); Basophils % (Auto) 0 % (0-2.5); Eosinophils % (Auto) 0 % (0-10); Hematocrit 35.5 % (41.0-53.0); Immature Granulocytes % (Auto) 7 % (0-0); Immature Granulocytes Auto 1.24 Thou/mm3 (0.00-0.00); Lymphocytes # (Auto) 1.5 Thou/mm3 (1.0-4.8); Lymphocytes % (Auto) 8 % (10-50); Mean Corpuscular HGB Conc 33.8 g/dl (31.0-37.0); Mean Corpuscular Hemoglobin 30.5 pg (25.0-35.0); Mean Corpuscular Volume 90 fL (80-100); Monocytes # (Auto) 1.5 Thou/mm3 (0.0-0.8); Monocytes % (Auto) 8 % (0-12); Neutrophils # (Auto) 14.4 Thou/mm3 (1.8-7.7); Neutrophils % (Auto) 77 % (37-80); Nucleated Red Blood Cell # 0.07 Thou/mm3 (0.00-0.00); Nucleated Red Blood Cell % 0 /100 WBC (0); Platelet Count 190 Thou/mm3 (140-440); RDW Standard Deviation 46.7 fL (35.1-43.9); Red Blood Count 3.93 Miln/mm3 (4.50-5.90); White Blood Count 18.7 Thou/mm3 (3.8-10.6)
[2024-07-08 06:22] LABS: Alanine Aminotransferase 74 U/L (10-49); Albumin, Serum 3.8 gm/dL (3.4-4.8); Alkaline Phosphatase 473 U/L (46-116); Anion Gap 10 (7-16); Aspartate Amino Transferase 68 U/L (0-34); BUN/Creatinine Ratio 29 Ratio (12-20); Bilirubin,Total 0.4 mg/dL (0.3-1.2); Blood Urea Nitrogen 26 mg/dL (9-23); Calcium (Corrected) 9.2 mg/dL (8.5-10.1); Carbon Dioxide 17.7 mMol/L (20.0-31.0); Chloride 107 mMol/L (98-107); Creatinine (Component) 0.9 mg/dL (0.6-1.3); Estimated Creatinine Clearance 69.4 mL/min (>60); Globulin 1.9 gm/dL (2.3-3.5); Glucose 137 mg/dL (74-106); Osmolality,Calculated 276 (275-295); Potassium 5.1 mMol/L (3.4-5.1); Sodium 135 mMol/L (136-145); Total Protein 5.7 gm/dL (5.7-8.2); eGFR > 60 See Note
[2024-07-08] MEDS: cefTRIAXone/D5w 1gm IV premix 50 ML IV (08:10)
[2024-07-08] MEDS: METOPROLOL SUCCINATE XL 25 MG TABCR 50 MG PO (08:11)
[2024-07-08] MEDS: NICOTINE PATCH 14 MG/24 HR PATCH.TD24 TOP (08:11)
[2024-07-08] MEDS: PANTOPRAZOLE 40 MG TABLET PO ×2 (08:11→20:05)
[2024-07-08] MEDS: DOXYCYCLINE INJ 100 MG in SODIUM CHLORIDE 0.9% (P) 100 ML IV ×2 (08:49→20:05)
--- NOTE | 2024-07-08 10:01 | ECHO_ITS ---
Transthoracic Echo Report Ht (in): 68 Wt (lb): 148 Exam Location: [facility] [employer] Status: Inpatient [employer]: Nisha Clark Indications: Procedure Performed: BP: 139 / 102 HR: Rhythm: Tachycardia Technical Quality: Fair MEASUREMENTS (Male / Female) Normal Values 2D ECHO LVOT Diameter 1.7 cm Ascending Aorta Diameter 3.0 cm M-MODE Aortic Root Diameter MM 3.3 cm LA Systolic Diameter MM 4.5 cm LA Ao Ratio MM 1.4 AV Cusp Separation MM 1.7 cm FINDINGS Left Ventricle Normal left ventricular size, wall thickness, systolic function with no obvious regional wall motion abnormalities. The ejection fraction is visually estimated at 55-60%. Right Ventricle The right ventricle is normal in size and systolic function. Left Atrium The left atrium is normal by two-dimensional, color flow and Doppler imaging with no structural abnormalities, no thrombus formation present. Right Atrium The right atrium is normal by two-dimensional imaging, color flow and Doppler imaging with no struct ural abnormalities, no thrombus formation present. Atrial Septum The interatrial septum appears normal with no evidence of a shunt. Aorta The aorta is normal by two-dimensional, color flow and Doppler interrogation. Mitral Valve The mitral valve is normal by two-dimensional, color flow and Doppler interrogation. There is no sig nificant mitral valve regurgitation. Aortic Valve The aortic valve is trileaflet and normal by two-dimensional, color flow and Doppler interrogation. There is no significant aortic valve regurgitation. Tricuspid Valve The tricuspid valve is normal by two-dimensional, color flow and Doppler interrogation. There is no significant tricuspid valve regurgitation. Pulmonic Valve There is no significant pulmonic valve regurgitation. Vessels The pulmonary artery appears normal. The inferior vena cava pulmonary and hepatic veins appear xochitl l. Pericardium The pericardium is normal by two-dimensional imaging. There is a large circumferential pericardial effusion. indication of cardiac tamponde. Other Findings Left pleural effusion present. CONCLUSIONS There is a large circumferential pericardial effusion. indication of cardiac tamponde. Normal LV size and funciton. Estimated EF 55-60% RV collapse. RA collapse. Respiration variataion on tricuspid and mitral valve. Findings are consistent with large pericardial effusion with cardiac tamponade Nanci Soto (Electronically Signed) Final Date: 09 July 2024 19:27
[2024-07-08 10:03] LABS: Lactate (Lactic Acid) 4.2 mMol/L (0.4-2.0)
[2024-07-08 10:14] LABS: Basophils # (Auto) 0.1 Thou/mm3 (0.0-0.2); Basophils % (Auto) 0 % (0-2.5); Eosinophils % (Auto) 0 % (0-10); Hematocrit 35.6 % (41.0-53.0); Hemoglobin 11.8 g/dL (13.5-16.0); Immature Granulocytes % (Auto) 7 % (0-0); Immature Granulocytes Auto 1.35 Thou/mm3 (0.00-0.00); Lymphocytes # (Auto) 1.1 Thou/mm3 (1.0-4.8); Lymphocytes % (Auto) 6 % (10-50); Mean Corpuscular HGB Conc 33.1 g/dl (31.0-37.0); Mean Corpuscular Hemoglobin 30.3 pg (25.0-35.0); Mean Corpuscular Volume 91 fL (80-100); Monocytes # (Auto) 1.4 Thou/mm3 (0.0-0.8); Monocytes % (Auto) 8 % (0-12); Neutrophils # (Auto) 14.3 Thou/mm3 (1.8-7.7); Neutrophils % (Auto) 79 % (37-80); Nucleated Red Blood Cell # 0.08 Thou/mm3 (0.00-0.00); Nucleated Red Blood Cell % 0 /100 WBC (0); Platelet Count 197 Thou/mm3 (140-440); RDW Standard Deviation 47.6 fL (35.1-43.9); White Blood Count 18.2 Thou/mm3 (3.8-10.6)
[2024-07-08 10:27] LABS: Albumin, Serum 3.7 gm/dL (3.4-4.8); Anion Gap 9 (7-16); BUN/Creatinine Ratio 25 Ratio (12-20); Blood Urea Nitrogen 25 mg/dL (9-23); Calcium 8.9 mg/dL (8.3-10.6); Calcium (Corrected) 9.1 mg/dL (8.5-10.1); Carbon Dioxide 18.3 mMol/L (20.0-31.0); Chloride 107 mMol/L (98-107); Estimated Creatinine Clearance 62.5 mL/min (>60); Glucose 185 mg/dL (74-106); Osmolality,Calculated 277 (275-295); Phosphorous 3.8 mg/dL (2.4-5.1); Potassium 5.1 mMol/L (3.4-5.1); Sodium 134 mMol/L (136-145); eGFR > 60 See Note
[2024-07-08 10:40] LABS: Base Excess -9 (-3-3); HCO3 17 mEq/L (20-26); Inspired Oxygen, FIO2 21 %; O2 Saturation 93 % (91-98); PCO2 39 mmHg (32.0-48.0); PO2 71 mmHg (83-108); pH, Arterial 7.26 (7.35-7.45)
[2024-07-08 10:41] LABS: Allen Test Not Performed; Puncture Site Right Radial
--- NOTE | 2024-07-08 12:45 | PD.RESPRO ---
Documentation for date of: 07/08/24 Subjective Subjective Interval history: Patient was seen and examined at bedside. No acute overnight events. His CTA showed pericardial effusion of suspicion for bowel ischemia. General surgery Dr. Danielson was consulted and said no surgical intervention required, clinically it is very unlikely bowel ischemia. Paper Tube Cutter Dr. Spencer did bedside echo showing significant pericardial effusion with tamponade, approximate volume 700 cc. Patient is planned for pericardiocentesis tomorrow. His lactic acid is still uptrending, last reading 4.2. Patient still endorses coffee-ground stool in the morning today. EGD was performed yesterday by Dr. Malave showing no obvious signs of bleeding. Will continue current management and monitor patient. Exam Vital Signs Temp Pulse Resp BP Pulse Ox O2 Del Method O2 Flow Rate 97.7 F 99 23 H 111/82 90 L Room Air 2 07/08/24 12:00 07/08/24 12:00 07/08/24 12:00 07/08/24 12:00 07/08/24 12:00 07/08/24 12:00 07/07/24 20:00 Narrative Exam Gen: Well-developed and well-nourished. HEENT: NCAT, PERRLA, EOMI, MMM, anicteric conjunctivae. CVS: normal S1 and S2. Regular tachycardia. No M/R/G. Resp: Significantly decreased breath sounds B/L. No rhonchi, rales, crackles or wheezing. Abd: soft, non-tender, non-distended. BS+ in all 4 quadrants. MSK: Good ROM in BUE & BLE. No edema or rash. Neuro: CN II-XII grossly intact. Strength 5/5 in BUE & BLE. Alert and oriented x3. Psych: appropriate mood and affect. Objective Labs 07/12/24 05:10 07/12/24 05:10 Labs: Laboratory Results - last 24 hr 07/08/24 07/08/24 07/08/24 05:30 09:38 10:35 WBC 18.7 H D 18.2 H RBC 3.93 L 3.90 L Hgb 12.0 L 11.8 L Hct 35.5 L 35.6 L MCV 90 91 MCH 30.5 30.3 MCHC 33.8 33.1 RDW Std Deviation 46.7 H 47.6 H Plt Count 190 D 197 Neut % (Auto) 77 79 Lymph % (Auto) 8 L 6 L [place] % (Auto) 8 8 Eos % (Auto) 0 0 Baso % (Auto) 0 0 Neut # (Auto) 14.4 H 14.3 H Lymph # (Auto) 1.5 1.1 [place] # (Auto) 1.5 H 1.4 H Eos # (Auto) 0.0 0.0 Baso # (Auto) 0.1 0.1 Immature Gran # (Auto) 1.24 H 1.35 H Absolute Nucleated RBC 0.07 H 0.08 H Immature Gran % 7 H 7 H Nucleated RBC % 0 0 Puncture Site Right Radial ABG pH 7.26 L ABG pCO2 39 ABG pO2 71 L ABG HCO3 17 L ABG O2 Saturation 93 ABG Base Excess -9 L FiO2 21 Sodium 135 L 134 L Potassium 5.1 5.1 Chloride 107 107 Carbon Dioxide 17.7 L 18.3 L Anion Gap 10 9 BUN 26 H 25 H Creatinine 0.9 1.0 Estim Creat Clear Calc 69.4 62.5 eGFR > 60 > 60 BUN/Creatinine Ratio 29 H 25 H Glucose 137 H 185 H Calculated Osmolality 276 277 Lactic Acid 4.2 H* Calcium 9.0 8.9 Corrected Calcium 9.2 9.1 Phosphorus 3.8 Total Bilirubin 0.4 AST 68 H ALT 74 H Alkaline Phosphatase 473 H D Total Protein 5.7 Albumin 3.8 3.7 Globulin 1.9 L Albumin/Globulin Ratio 2.0 ABG Interpretation ABG results: 07/08/24 10:35 ABG pH 7.26 L ABG pCO2 39 ABG pO2 71 L ABG HCO3 17 L ABG O2 Saturation 93 ABG Base Excess -9 L Quality Measures Quality Measures VTE prophylaxis (SCDs) Advance care planning discussed with:: patient Assessment & Plan Assessment Current Active Medications: Generic Name Dose Route Start Last Admin Trade Name Freq PRN Reason Stop Dose Admin Acetaminophen 650 mg 07/06/24 09:34 Acetaminophen Supp 650 Mg Supp [place] 08/04/24 16:55 Q6HR PRN FEVER>101.5 Albuterol/Ipratropium 3 ml 07/05/24 22:00 07/05/24 23:45 Albuterol/Ipratropium (Duoneb) Rt Zamzam 3 Ml Nebu INH 08/04/24 21:59 3 ml Q2HR PRN Administration SHORTNESS OF BREATH OR WHEEZE Ceftriaxone Sodium/Dextrose 50 mls @ 100 mls/hr 07/06/24 09:00 07/08/24 08:10 Rocephin/D5w 1gm Iv Premix IV 07/13/24 08:59 100 mls/hr QDAY JADE Administration Sodium Chloride 1,000 mls @ 120 mls/hr 07/06/24 06:10 07/08/24 04:40 Ns IV 08/05/24 06:09 120 mls/hr .Q8H20M JADE Administration Doxycycline Hyclate 100 mg/ 100 mls @ 100 mls/hr 07/06/24 11:30 07/08/24 08:49 Sodium Chloride IV 07/13/24 11:29 100 mls/hr BID JADE Administration Melatonin 3 mg 07/05/24 21:10 07/05/24 21:48 Melatonin 3 Mg Tablet PO 08/05/24 20:59 3 mg HS PRN Administration insomnia Metoprolol Succinate 50 mg 07/07/24 12:15 07/08/24 08:11 Metoprolol Succinate Xl 25 Mg Tabcr PO 08/06/24 12:14 50 mg DAILY JADE Administration Mirtazapine 15 mg 07/06/24 21:00 07/07/24 20:22 Mirtazapine 15 Mg Tablet PO 08/05/24 08:59 15 mg HS JADE Administration Nicotine 14 mg 07/05/24 16:45 07/08/24 08:11 Nicotine Patch 14 Mg/24 Hr Patch.Td24 TOP 08/04/24 16:44 14 mg QDAY JADE Administration Ondansetron HCl 4 mg 07/05/24 16:56 Ondansetron Inj 2 Mg/Ml Inj 2 Ml IV 08/04/24 16:55 Q6H PRN NAUSEA OR VOMITING Protocol Pantoprazole Sodium 40 mg 07/07/24 21:00 07/08/24 08:11 Pantoprazole 40 Mg Tablet PO 08/06/24 20:59 40 mg BID JADE Administration Sennosides 1 tab 07/05/24 16:56 Senna Tablet PO 08/04/24 16:55 QDAY PRN constipation Protocol Trazodone HCl 100 mg 07/05/24 21:00 07/07/24 20:22 Trazodone Hcl 50 Mg Tablet PO 08/04/24 20:59 100 mg HS JADE Administration Plan Plan Mr. 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 Patient states that he has been having shortness of breath and cough with phlegm, runny nose, and chest congestion for the past 2 weeks and the primary care physician had had ordered an x-ray with findings consistent of pneumonia and he was prescribed azithromycin. #Pericardial effusion. #Tamponade. #Orthostatic hypotension. -Although patient has primary hypertension, when he gets up from lying position his blood pressure drops. -when Pt. was getting out of bed from laying position his BP drop to 84/58. Laying down blood pressure is 118/62. -Patient reports that his breathing is worse when he lays on his back. -CTA showed Pericardial effusion measuring up to 30 mm. -Bedside echo performed by Dr. Spencer showed significant pericardial effusion with tamponade, estimated volume 700 cc. plan: -Hold blood pressure medications and BPH medications. -Pericardiocentesis planned for tomorrow. #Sepsis 2/2. #Right-sided pneumonia. #Leukocytosis. #Lactic acidosis. -SIRS 3/4 - tachycardia, tachyapnea, leukocytosis. -Chest x-ray showed prominent diffuse right lung pneumonia and isolated scattered nodular opacities in the left lung. -On admission lactic acid 3.1--> 07/06 4.4 ->3.4->4.2. Plan: -Normal saline maintenance fluid. -Rocephin 07/05- -doxycycline 100 Mg twice daily 07/06- -Blood cultures preliminary negative. -Cocci - pending. -Trending lactic acid. #Suspected bowel ischemia. #Symptomatic acute anemia. #GI bleed-likely upper. -Patient reports 3 episodes of melena -Hemoglobin on admission was 10.9, Hct 32.8. patient's baseline is Hgb 14. -CTA of abdomen showed suspicious for early small bowel ischemia, clinical correlation advised, consider surgical consultation. -General Surgery was consulted, Dr. Danielson on board, clinically patient unlikely has bowel ischemia. Plan: -GI consulted- appreciate Dr. Malave's recommendation. -General Surgery consulted, Dr. Danielson on board. -IV Protonix 40mg BID. -PUD diet. -avoid chemical anticoagualtion. #Primary Hypertension. #CAD status post PCI. -Hold patient's home medication: Metoprolol, amlodipine, benazepril, clopidogrel. -Continue metoprolol succinate, hold other home antihypertensives for now. #Depression. -Resume home trazodone and mirtazapine. #BPH. -Hold home tamsulosin due to orthostatic hypotension episodes. -resume home finasteride. #History of CVA. -Patient has a history of CVA approximately 4 to 5 years ago with residual weakness in the left hand. Disposition: [facility] for management of Sepsis and GI bleed. DVT Prophylaxis: SCD QSHIFT. GI Prophylaxis: Pantoprozol-40 IV BID Diet: Cardiac or Diabetic Diet, carbohydrate consistent Code status: Full Plan of care discussed with attending Dr. Alvarado. Ilir Dixon MD, PGY 2. Disclaimer: This note was dictated by speech recognition. Minor errors in wagon driver salesperson may be present due to voice recognition software. Attending Provider Attestation/Addendum 74-year-old male with hypertension, hyperlipidemia with subsequent CAD status post stent placement and history of ischemic CVA with left hand residual deficits who presented to the ER with chief complaint of dark tarry stool found to have symptomatic anemia secondary to upper GI bleed and sepsis secondary to pneumonia. Currently, patient underwent CTA with findings of pericardial effusion with tamponade physiology and thus underwent pericardiocentesis with removal of 700 cc of fluid with improvement in blood pressure. Continue to monitor and patient continues to have catheter in place in the pericardial area. Studies for cytology. Appreciate cardiology input. I reviewed above note and agree with findings and plans. I have also personally examined the patient with medicine team and went over assessment and plan with medical team including advertising internship and resident physician.
[2024-07-08 12:51] LABS: Reflex Lactate? Y
--- NOTE | 2024-07-08 13:11 | PC.SS ---
Rounding: Pending pericardiocentesis tomorrow.
[2024-07-08 14:23] LABS: Lactate (Lactic Acid) 5.2 mMol/L (0.4-2.0)
--- NOTE | 2024-07-08 14:49 | XR_ITS ---
Examination: Abdomen sonogram, Limited Date and time of exam: July 08, 2024 1537 hrs. Indications: Abnormal liver function tests on laboratory examination today Technique: Real-time sanchez scale transabdominal sonographic images of the upper abdomen obtained. Findings: Negative for gallstones Gallbladder wall is thickened 0.5 cm Common bile duct 0.4 cm no stones Pancreatic head 2.2 cm Liver 14.5 cm irregular contour multiple liver lesions, complex cyst versus cystic solid masses the largest in the right lobe 17 x 14 x 15 mm Normal hepatopedal portal venous flow Patent IVC Mild ascites and mild right pleural fluid Impression: Thickened gallbladder wall, consider HIDA scan or MRCP follow-up to exclude cholecystitis Multiple liver lesions which need additional diagnostic assessment Recommend MRI abdomen liver follow-up pre and postcontrast
--- NOTE | 2024-07-08 15:27 | PD.SURCONS ---
HPI Consult details Consult date: 07/08/24 Reason for consultation narrative: Possible ischemic bowel History of present illness: 74-year-old male with history of BPH, hypercholesterolemia, hypertension, coronary artery disease status post stent placement and Plavix, previous CVA with left-sided weakness status post right carotid endarterectomy was admitted with cough shortness of breath and black tarry stool. He underwent an EGD that showed esophageal ulcers and gastritis. He underwent CT scan that revealed gastritis with active duodenitis, cirrhosis of the liver with mild ascites, small bowel wall thickening suspicious for early small bowel ischemia. Patient denies any abdominal pain. He is eating and tolerating diet well without nausea or vomiting and having bowel movements. Review of Systems Constitutional Constitutional: Denies chills and Denies fever(s) Cardiovascular Cardiovascular: Denies chest pain and Reports dyspnea Respiratory Respiratory: Reports cough and Reports dyspnea Gastrointestinal Gastrointestinal: Denies abdominal pain, Denies nausea and Denies vomiting Past Medical History Surgical History OTHER SURGICAL HX: Back surgery, right carotid endarterectomy Meds Home Medications and Allergies Home Medications ?Medication ?Instructions ?Recorded ?Confirmed ?Type Trazodone * (DESYREL *) 100 mg PO HS #0 tabs 09/30/15 07/06/24 History benazepril 40 mg tablet (Lotensin) 40 mg PO QDAY #0 tabs 09/30/15 07/06/24 History citalopram 40 mg tablet (Celexa) 40 mg PO QDAY #0 tabs 09/30/15 11/14/19 History clopidogrel 75 mg tablet (Plavix) 75 mg PO QDAY #0 tabs 09/30/15 07/06/24 History famotidine 20 mg tablet (Pepcid) 20 mg PO QAM #0 tabs 09/30/15 07/06/24 History amlodipine 10 mg tablet 10 mg PO HS 07/06/24 07/06/24 History finasteride 5 mg tablet 5 mg PO HS 07/06/24 07/06/24 History metoprolol succinate 50 mg 50 mg PO DAILY 07/06/24 07/06/24 History tablet,extended release 24 hr mirtazapine 15 mg tablet 15 mg PO HS 07/06/24 07/06/24 History rosuvastatin 40 mg tablet 40 mg PO HS 07/06/24 07/06/24 History tamsulosin 0.4 mg capsule 0.4 mg PO QDAY 07/06/24 07/06/24 History Allergies Allergy/AdvReac Type Severity Reaction Status Date / Time No Known Allergies Allergy Verified 11/14/19 07:23 Exam Vital Signs Temp Pulse Resp BP Pulse Ox O2 Del Method O2 Flow Rate 97.7 F 99 23 H 111/82 90 L Room Air 2 07/08/24 12:00 07/08/24 12:00 07/08/24 12:00 07/08/24 12:00 07/08/24 12:00 07/08/24 12:00 07/07/24 20:00 Constitutional Constitutional: no acute distress Routine Abdominal Exam Abdominal: Present soft and normoactive bowel sounds; Absent tenderness or distended Results Results: Laboratory Laboratory results: results reviewed Results: Imaging CT scan - abdomen: report reviewed and image reviewed CT scan - pelvis: report reviewed and image reviewed Assessment & Plan Problem List (1) Community acquired pneumonia: Status: Acute (2) GI bleed: Status: Acute Additional Assessment Additional comments: No clinical evidence of bowel ischemia, abdominal examination is completely benign Plan Continue care as directed. There are no indications for any surgical intervention at this time. I will sign off, please call for any questions
[2024-07-08 16:16] LABS: Alanine Aminotransferase 92 U/L (10-49); Alkaline Phosphatase 527 U/L (46-116); Anion Gap 11 (7-16); Aspartate Amino Transferase 75 U/L (0-34); BUN/Creatinine Ratio 26 Ratio (12-20); Bilirubin,Total 0.4 mg/dL (0.3-1.2); Blood Urea Nitrogen 29 mg/dL (9-23); Calcium 9.4 mg/dL (8.3-10.6); Calcium (Corrected) 9.4 mg/dL (8.5-10.1); Carbon Dioxide 17.8 mMol/L (20.0-31.0); Chloride 107 mMol/L (98-107); Creatinine (Component) 1.1 mg/dL (0.6-1.3); Estimated Creatinine Clearance 56.8 mL/min (>60); Glucose 135 mg/dL (74-106); Osmolality,Calculated 279 (275-295); Sodium 136 mMol/L (136-145); eGFR > 60 See Note
[2024-07-08 16:18] LABS: Potassium 6.3 mMol/L (3.4-5.1)
[2024-07-08] MEDS: DEXTROSE 50%-WATER INJ 50 ML SYRINGE IV ×2 (16:35→18:25)
[2024-07-08] MEDS: CALCIUM GLUCONATE 10% INJ 1 GM/10 ML VIAL IV (16:37)
[2024-07-08] MEDS: INSULIN HUM REGULAR 1 UNIT/0.01 ML (PER UNIT) 5 UNIT IV ×2 (16:37→18:24)
--- NOTE | 2024-07-08 16:55 | EKG_ITS ---
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: DELFNIA : 1950 Requested By: Ilir Dixon Order Number: [id number] Reading MD: Ilir Dixon Measurements Intervals [place] Rate: 99 P: 70 OK: 151 QRS: -71 QRSD: 137 T: 59 QT: 355 QTc: 457 Interpretive Statements SINUS RHYTHM MARKED LEFT AXIS DEVIATION RIGHT BUNDLE BRANCH BLOCK POSSIBLE ANTERIOR MYOCARDIAL INFARCTION , OF INDETERMINATE AGE Compared to ECG 07/05/2024 20:10:06 Left-axis deviation now present Myocardial infarct finding now present Ventricular premature complex(es) no longer present Left anterior fascicular block no longer present /store/S0/[id number]/ecg/[id number].pdf
[2024-07-08 17:14] LABS: Reflex Lactate? Y
[2024-07-08 17:45] LABS: Lactate (Lactic Acid) 6.1 mMol/L (0.4-2.0)
[2024-07-08 18:03] LABS: Creatine Kinase 254 U/L (34-171); Potassium 5.3 mMol/L (3.4-5.1)
[2024-07-08 19:11] LABS: Potassium 5.2 mMol/L (3.4-5.1)
--- NOTE | 2024-07-08 19:20 | ESPR_ITS ---
Documentation for date of: 07/08/24 Subjective Subjective Interval history: CT abdomen pelvis showed possible small bowel ischemia cirrhosis and mild ascites Abdominal examination is completely benign Upper endoscopy shows mid esophageal ulcer and GE junction ulceration along with gastritis and duodenitis WBC count is 18.2 and hemoglobin hematocrit 11.8 and 35.6 Exam Vital Signs Temp Pulse Resp BP Pulse Ox O2 Del Method O2 Flow Rate 97.8 F 92 20 116/82 94 L Room Air 2 07/08/24 16:00 07/08/24 16:00 07/08/24 16:00 07/08/24 16:00 07/08/24 16:00 07/08/24 16:00 07/07/24 20:00 Constitutional Comments: Alert oriented Routine Respiratory Exam Comments: Normal to auscultation Routine Abdominal Exam Comments: Soft nontender Objective Labs 07/08/24 09:38 07/08/24 18:50 Labs: Laboratory Results - last 24 hr 07/08/24 07/08/24 07/08/24 05:30 09:38 10:35 WBC 18.7 H D 18.2 H RBC 3.93 L 3.90 L Hgb 12.0 L 11.8 L Hct 35.5 L 35.6 L MCV 90 91 MCH 30.5 30.3 MCHC 33.8 33.1 RDW Std Deviation 46.7 H 47.6 H Plt Count 190 D 197 Neut % (Auto) 77 79 Lymph % (Auto) 8 L 6 L [place] % (Auto) 8 8 Eos % (Auto) 0 0 Baso % (Auto) 0 0 Neut # (Auto) 14.4 H 14.3 H Lymph # (Auto) 1.5 1.1 [place] # (Auto) 1.5 H 1.4 H Eos # (Auto) 0.0 0.0 Baso # (Auto) 0.1 0.1 Immature Gran # (Auto) 1.24 H 1.35 H Absolute Nucleated RBC 0.07 H 0.08 H Immature Gran % 7 H 7 H Nucleated RBC % 0 0 Puncture Site Right Radial ABG pH 7.26 L ABG pCO2 39 ABG pO2 71 L ABG HCO3 17 L ABG O2 Saturation 93 ABG Base Excess -9 L FiO2 21 Sodium 135 L 134 L Potassium 5.1 5.1 Chloride 107 107 Carbon Dioxide 17.7 L 18.3 L Anion Gap 10 9 BUN 26 H 25 H Creatinine 0.9 1.0 Estim Creat Clear Calc 69.4 62.5 eGFR > 60 > 60 BUN/Creatinine Ratio 29 H 25 H Glucose 137 H 185 H Calculated Osmolality 276 277 Lactic Acid 4.2 H* Calcium 9.0 8.9 Corrected Calcium 9.2 9.1 Phosphorus 3.8 Total Bilirubin 0.4 AST 68 H ALT 74 H Alkaline Phosphatase 473 H D Total Creatine Kinase Total Protein 5.7 Albumin 3.8 3.7 Globulin 1.9 L Albumin/Globulin Ratio 2.0 07/08/24 07/08/24 07/08/24 13:58 15:14 17:27 WBC RBC Hgb Hct MCV MCH MCHC RDW Std Deviation Plt Count Neut % (Auto) Lymph % (Auto) [place] % (Auto) Eos % (Auto) Baso % (Auto) Neut # (Auto) Lymph # (Auto) [place] # (Auto) Eos # (Auto) Baso # (Auto) Immature Gran # (Auto) Absolute Nucleated RBC Immature Gran % Nucleated RBC % Puncture Site ABG pH ABG pCO2 ABG pO2 ABG HCO3 ABG O2 Saturation ABG Base Excess FiO2 Sodium 136 Potassium 6.3 H* D 5.3 H D Chloride 107 Carbon Dioxide 17.8 L Anion Gap 11 BUN 29 H Creatinine 1.1 Estim Creat Clear Calc 56.8 L eGFR > 60 BUN/Creatinine Ratio 26 H Glucose 135 H D Calculated Osmolality 279 Lactic Acid 5.2 H* 6.1 H* Calcium 9.4 Corrected Calcium 9.4 Phosphorus Total Bilirubin 0.4 AST 75 H ALT 92 H Alkaline Phosphatase 527 H D Total Creatine Kinase 254 H Total Protein 6.0 Albumin 4.0 Globulin 2.0 L Albumin/Globulin Ratio 2.0 07/08/24 18:50 WBC RBC Hgb Hct MCV MCH MCHC RDW Std Deviation Plt Count Neut % (Auto) Lymph % (Auto) [place] % (Auto) Eos % (Auto) Baso % (Auto) Neut # (Auto) Lymph # (Auto) [place] # (Auto) Eos # (Auto) Baso # (Auto) Immature Gran # (Auto) Absolute Nucleated RBC Immature Gran % Nucleated RBC % Puncture Site ABG pH ABG pCO2 ABG pO2 ABG HCO3 ABG O2 Saturation ABG Base Excess FiO2 Sodium Potassium 5.2 H Chloride Carbon Dioxide Anion Gap BUN Creatinine Estim Creat Clear Calc eGFR BUN/Creatinine Ratio Glucose Calculated Osmolality Lactic Acid Calcium Corrected Calcium Phosphorus Total Bilirubin AST ALT Alkaline Phosphatase Total Creatine Kinase Total Protein Albumin Globulin Albumin/Globulin Ratio Impressions Impression: # Mid esophageal ulceration # GE junction ulceration # Gastritis # Duodenitis # No clinical evidence of any small bowel ischemia Continue Protonix Advance diet ABG Interpretation ABG results: 07/08/24 10:35 ABG pH 7.26 L ABG pCO2 39 ABG pO2 71 L ABG HCO3 17 L ABG O2 Saturation 93 ABG Base Excess -9 L Assessment & Plan A&P Narrative # Occult GI bleeding in the form of melena #. FOBT positive # Acute posthemorrhagic anemia Plan Serial CBC IV Protonix Consent obtained for fiberoptic esophagogastroduodenoscopy with possible therapeutic intervention under intravenous moderate sedation possible biopsy scheduled for tomorrow Other medical problems include # Coronary artery status post PCI # Essential hypertension # COPD Thank you very much for the opportunity to participate in the care of this patient Time Spent With Patient Time: Total time spent is greater than 50% in coordination of care (as documented) at patient's floor/unit and/or counseling patient:
[2024-07-08] MEDS: FINASTERIDE 5 MG TABLET PO (20:05)
[2024-07-08] MEDS: traZODone HCL 50 MG TABLET 100 MG PO (20:05)
[2024-07-08 20:34] LABS: Reflex Lactate? Y
[2024-07-08 21:03] LABS: Lactic Acid, 3 HR 4.7 mMol/L (0.4-2.0)
[2024-07-08 22:57] LABS: Hepatitis A Antibody IgM Non Reactive (Non React); Hepatitis B Core Antibody IgM Non Reactive (Non React); Hepatitis B Surface Antigen Non Reactive (Non React); Hepatitis C Antibody Reactive (Non React)
--- NOTE | 2024-07-08 23:47 | ESCONSULT_ITS ---
RE: JUAN ANTONIO COELLO : 1950 DATE OF CONSULTATION: 07/08/2024 HISTORY OF PRESENT ILLNESS: The patient is a 74-year-old male with a past medical history of CAD, stent placement, admitted to the hospital with possible gastrointestinal bleeding with melena, gastritis. The patient continued to have high white count of 18,000, source of infection is not clear whether it is pneumonia or other findings. The patient is receiving antibiotic therapy. A CT scan of the abdomen and pelvis was performed, which showed evidence of large pericardial effusion. I did a bedside echo, showed large pericardial effusion with cardiac tamponade physiology. The patient also has elevated alkaline phosphatase and CT also reported showing cholelithiasis and mild cirrhosis of the liver and ascites. There was some thickening of the small bowel loops, suspicious for possible ischemic bowel. There is also evidence of colonic diverticulosis and urinary bladder thickening as well. The patient is also acidotic not responding to IV fluids and antibiotics, which is quite concerning despite aggressive antibiotic therapy. His chemistry panel did show evidence of lactic acidosis continue to get worse at 6.1 and creatinine is 1.1. PHYSICAL EXAMINATION: GENERAL: Clinical examination, the patient is acutely ill, not complaining of any chest pain, mostly shortness of breath, orthopnea. He is somewhat tachycardic, heart rate is about 90-100. VITAL SIGNS: Blood pressure 116/82, respirations 20, temperature normal. NECK: Supple. No JVD. LUNGS: Decreased breath sounds at bases. HEART: S1, S2, regular, tachycardia. NECK: JVD present. ABDOMEN: Soft, benign. No organomegaly. No tenderness detected. Bowel sounds are heard. EXTREMITIES: No edema. LABORATORY DATA: Showed persistent leukocytosis. His hemoglobin 11.8, white count 18.2. Chemistry panel showed potassium went up, now is corrected back to 5.2. Lactic acid is 6.1. BUN is 29, creatinine 1.1. He is getting hydration as well. ASSESSMENT: 1. Large pericardial effusion and cardiac tamponade physiology. 2. Sepsis, source undetermined with large pericardial effusion, continued on IV antibiotic therapy. 3. Hypertension. 4. Coronary artery disease, status post stent placement. 5. History of melena with gastritis and possible upper GI bleeding, stabilized. Hemoglobin is stable. RECOMMENDATIONS: The patient will be continued on aggressive antibiotic therapy. He is receiving ceftriaxone for now and we will consider doing pericardiocentesis in the morning. We will send the fluid for cultures. DT: 20:43:53 TT: 21:51:00 Ref: [id number] - TID: [id number]
[2024-07-09] VITALS (16 sets, daily range): BP systolic 91–144; BP diastolic 64–102; PULSE 89–120; RESP 16–97; TEMP 36.3–36.7; O2SAT 93–99
[2024-07-09 05:06] LABS: Reflex Lactate? Y
[2024-07-09 05:37] LABS: Lactate (Lactic Acid) 3.2 mMol/L (0.4-2.0)
[2024-07-09 05:44] LABS: Basophils # (Auto) 0.1 Thou/mm3 (0.0-0.2); Basophils % (Auto) 1 % (0-2.5); Eosinophils # (Auto) 0.1 Thou/mm3 (0.0-0.5); Eosinophils % (Auto) 0 % (0-10); Hemoglobin 11.8 g/dL (13.5-16.0); Immature Granulocytes % (Auto) 7 % (0-0); Immature Granulocytes Auto 1.45 Thou/mm3 (0.00-0.00); Lymphocytes # (Auto) 1.6 Thou/mm3 (1.0-4.8); Lymphocytes % (Auto) 7 % (10-50); Mean Corpuscular HGB Conc 32.8 g/dl (31.0-37.0); Mean Corpuscular Hemoglobin 29.9 pg (25.0-35.0); Mean Corpuscular Volume 91 fL (80-100); Monocytes # (Auto) 1.8 Thou/mm3 (0.0-0.8); Monocytes % (Auto) 8 % (0-12); Neutrophils # (Auto) 16.4 Thou/mm3 (1.8-7.7); Neutrophils % (Auto) 77 % (37-80); Nucleated Red Blood Cell # 0.08 Thou/mm3 (0.00-0.00); Nucleated Red Blood Cell % 0 /100 WBC (0); Platelet Count 210 Thou/mm3 (140-440); RDW Standard Deviation 48.1 fL (35.1-43.9); Red Blood Count 3.94 Miln/mm3 (4.50-5.90); White Blood Count 21.4 Thou/mm3 (3.8-10.6)
[2024-07-09 06:38] LABS: Alanine Aminotransferase 490 U/L (10-49); Albumin, Serum 3.6 gm/dL (3.4-4.8); Albumin/Globulin Ratio 1.9 (1.2-2.2); Alkaline Phosphatase 496 U/L (46-116); Anion Gap 9 (7-16); Aspartate Amino Transferase 390 U/L (0-34); BUN/Creatinine Ratio 35 Ratio (12-20); Bilirubin,Total 0.3 mg/dL (0.3-1.2); Blood Urea Nitrogen 35 mg/dL (9-23); Calcium (Corrected) 9.3 mg/dL (8.5-10.1); Carbon Dioxide 18.5 mMol/L (20.0-31.0); Chloride 108 mMol/L (98-107); Estimated Creatinine Clearance 62.5 mL/min (>60); Globulin 1.9 gm/dL (2.3-3.5); Glucose 115 mg/dL (74-106); Osmolality,Calculated 279 (275-295); Potassium 5.5 mMol/L (3.4-5.1); Sodium 135 mMol/L (136-145); Total Protein 5.5 gm/dL (5.7-8.2); eGFR > 60 See Note
--- NOTE | 2024-07-09 07:00 | ECHO_ITS ---
Transthoracic Echo Report Ht (in): 69 Wt (lb): 148 Exam Location: Echo Lab Status: Inpatient Venue Attendant: Indications: Procedure Performed: BP: / HR: Technical Quality: Fair CONCLUSIONS Pericardiocentesis: Large pericardial effusion successful pericardiocentecis Fluid obtained 800mL. Nanci Soto (Electronically Signed) Final Date: 10 July 2024 12:48
--- NOTE | 2024-07-09 07:45 | PC.NURSE ---
Patient was taken to clinical laboratory assistant at this time.
[2024-07-09 08:05] LABS: INR 1.3 (0.9-1.3); Partial Thromboplastin Time 27.1 Seconds (22.0-36.0); Prothrombin Time 13.7 Seconds (9.0-12.2)
[2024-07-09 08:10] LABS: Potassium 5.4 mMol/L (3.4-5.1)
[2024-07-09 08:31] LABS: Reflex Lactate? Y
[2024-07-09 08:38] LABS: Lactic Acid, 3 HR 3.3 mMol/L (0.4-2.0)
[2024-07-09] MEDS: DEXTROSE 50%-WATER INJ 50 ML SYRINGE IV (10:14)
[2024-07-09] MEDS: INSULIN HUM REGULAR 1 UNIT/0.01 ML (PER UNIT) 5 UNIT IV (10:15)
[2024-07-09] MEDS: PANTOPRAZOLE 40 MG TABLET PO ×2 (11:30→20:52)
[2024-07-09] MEDS: METOPROLOL SUCCINATE XL 25 MG TABCR 50 MG PO (11:30)
[2024-07-09] MEDS: LEVOFLOXACIN/D5W 750MG IVPB 750 MG/150 ML BAG 100 MG IV (11:31)
[2024-07-09 12:34] LABS: Cocci Serology, IgG Negative (Negative)
--- NOTE | 2024-07-09 13:06 | ESPR_ITS ---
Documentation for date of: 07/09/24 Subjective Subjective Interval history: Patient was seen and examined at bedside. No acute overnight events. Patient underwent pericardiocentesis today with 750 cc of brown-red fluid removal, cytology, cell count and other labs were ordered. The drain was left in his pericardium, will monitor until his daily output less than 50 cc a day. His lactic acid down trended, last reading 3.2. His AST and ALT remained elevated and at 390 and 490 respectively. His ceftriaxone doxycycline were changed to levofloxacin. Patient was given insulin for hyperkalemia. Will continue current management and monitor patient. Exam Vital Signs Temp Pulse Resp BP Pulse Ox O2 Del Method O2 Flow Rate 97.6 F 116 H 17 141/90 H 96 Nasal Cannula 3 07/09/24 12:00 07/09/24 12:00 07/09/24 12:00 07/09/24 12:00 07/09/24 12:00 07/09/24 12:00 07/09/24 12:00 Narrative Exam Gen: Well-developed and well-nourished. HEENT: NCAT, PERRLA, EOMI, MMM, anicteric conjunctivae. CVS: normal S1 and S2. Regular tachycardia. No M/R/G. Pericardial drain in place. Resp: Significantly decreased breath sounds B/L. No rhonchi, rales, crackles or wheezing. Abd: soft, non-tender, non-distended. BS+ in all 4 quadrants. MSK: Good ROM in BUE & BLE. No edema or rash. Neuro: CN II-XII grossly intact. Strength 5/5 in BUE & BLE. Alert and oriented x3. Psych: appropriate mood and affect. Objective Labs 07/12/24 05:10 07/12/24 05:10 Labs: Laboratory Results - last 24 hr 07/06/24 07/08/24 07/08/24 05:38 13:58 15:14 WBC RBC Hgb Hct MCV MCH MCHC RDW Std Deviation Plt Count Neut % (Auto) Lymph % (Auto) [place] % (Auto) Eos % (Auto) Baso % (Auto) Neut # (Auto) Lymph # (Auto) [place] # (Auto) Eos # (Auto) Baso # (Auto) Immature Gran # (Auto) Absolute Nucleated RBC Immature Gran % Nucleated RBC % PT INR APTT Sodium 136 Potassium 6.3 H* D Chloride 107 Carbon Dioxide 17.8 L Anion Gap 11 BUN 29 H Creatinine 1.1 Estim Creat Clear Calc 56.8 L eGFR > 60 BUN/Creatinine Ratio 26 H Glucose 135 H D Calculated Osmolality 279 Lactic Acid 5.2 H* Calcium 9.4 Corrected Calcium 9.4 Total Bilirubin 0.4 AST 75 H ALT 92 H Alkaline Phosphatase 527 H D Total Creatine Kinase Total Protein 6.0 Albumin 4.0 Globulin 2.0 L Albumin/Globulin Ratio 2.0 Coccidioides IgG Ab Negative Hepatitis A IgM Ab Non Reactive Hep Bs Antigen Non Reactive Hep B Core IgM Ab Non Reactive Hepatitis C Antibody Reactive A 07/08/24 07/08/24 07/08/24 17:27 18:50 20:55 WBC RBC Hgb Hct MCV MCH MCHC RDW Std Deviation Plt Count Neut % (Auto) Lymph % (Auto) [place] % (Auto) Eos % (Auto) Baso % (Auto) Neut # (Auto) Lymph # (Auto) [place] # (Auto) Eos # (Auto) Baso # (Auto) Immature Gran # (Auto) Absolute Nucleated RBC Immature Gran % Nucleated RBC % PT INR APTT Sodium Potassium 5.3 H D 5.2 H Chloride Carbon Dioxide Anion Gap BUN Creatinine Estim Creat Clear Calc eGFR BUN/Creatinine Ratio Glucose Calculated Osmolality Lactic Acid 6.1 H* 4.7 H* Calcium Corrected Calcium Total Bilirubin AST ALT Alkaline Phosphatase Total Creatine Kinase 254 H Total Protein Albumin Globulin Albumin/Globulin Ratio Coccidioides IgG Ab Hepatitis A IgM Ab Hep Bs Antigen Hep B Core IgM Ab Hepatitis C Antibody 07/09/24 07/09/24 07/09/24 00:59 05:20 07:53 WBC 21.4 H RBC 3.94 L Hgb 11.8 L Hct 36.0 L MCV 91 MCH 29.9 MCHC 32.8 RDW Std Deviation 48.1 H Plt Count 210 Neut % (Auto) 77 Lymph % (Auto) 7 L [place] % (Auto) 8 Eos % (Auto) 0 Baso % (Auto) 1 Neut # (Auto) 16.4 H Lymph # (Auto) 1.6 [place] # (Auto) 1.8 H Eos # (Auto) 0.1 Baso # (Auto) 0.1 Immature Gran # (Auto) 1.45 H Absolute Nucleated RBC 0.08 H Immature Gran % 7 H Nucleated RBC % 0 PT 13.7 H INR 1.3 APTT 27.1 Sodium 135 L Potassium 5.5 H 5.4 H Chloride 108 H Carbon Dioxide 18.5 L Anion Gap 9 BUN 35 H Creatinine 1.0 Estim Creat Clear Calc 62.5 eGFR > 60 BUN/Creatinine Ratio 35 H Glucose 115 H Calculated Osmolality 279 Lactic Acid 4.0 H 3.2 H Calcium 9.0 Corrected Calcium 9.3 Total Bilirubin 0.3 AST 390 H ALT 490 H Alkaline Phosphatase 496 H D Total Creatine Kinase Total Protein 5.5 L Albumin 3.6 Globulin 1.9 L Albumin/Globulin Ratio 1.9 Coccid[place]ides IgG Ab Hepatitis A IgM Ab Hep Bs Antigen Hep B Core IgM Ab Hepatitis C Antibody 07/09/24 08:19 WBC RBC Hgb Hct MCV MCH MCHC RDW Std Deviation Plt Count Neut % (Auto) Lymph % (Auto) [place] % (Auto) Eos % (Auto) Baso % (Auto) Neut # (Auto) Lymph # (Auto) [place] # (Auto) Eos # (Auto) Baso # (Auto) Immature Gran # (Auto) Absolute Nucleated RBC Immature Gran % Nucleated RBC % PT INR APTT Sodium Potassium Chloride Carbon Dioxide Anion Gap BUN Creatinine Estim Creat Clear Calc eGFR BUN/Creatinine Ratio Glucose Calculated Osmolality Lactic Acid 3.3 H Calcium Corrected Calcium Total Bilirubin AST ALT Alkaline Phosphatase Total Creatine Kinase Total Protein Albumin Globulin Albumin/Globulin Ratio [place] IgG Ab Hepatitis A IgM Ab Hep Bs Antigen Hep B Core IgM Ab Hepatitis C Antibody ABG Interpretation ABG results: 07/08/24 10:35 ABG pH 7.26 L ABG pCO2 39 ABG pO2 71 L ABG HCO3 17 L ABG O2 Saturation 93 ABG Base Excess -9 L Quality Measures Quality Measures VTE prophylaxis (SCDs) Advance care planning discussed with:: patient Assessment & Plan Assessment Current Active Medications: Generic Name Dose Route Start Last Admin Trade Name Freq PRN Reason Stop Dose Admin Acetaminophen 650 mg 07/06/24 09:34 Acetaminophen Supp 650 Mg Supp MI 08/04/24 16:55 Q6HR PRN FEVER>101.5 Albuterol/Ipratropium 3 ml 07/05/24 22:00 07/05/24 23:45 Albuterol/Ipratropium (Duoneb) Rt Zamzam 3 Ml Nebu INH 08/04/24 21:59 3 ml Q2HR PRN Administration SHORTNESS OF BREATH OR WHEEZE Finasteride 5 mg 07/08/24 21:00 07/08/24 20:05 Finasteride 5 Mg Tablet PO 08/07/24 20:59 5 mg HS JADE Administration Sodium Chloride 1,000 mls @ 120 mls/hr 07/06/24 06:10 07/08/24 23:52 Ns IV 08/05/24 06:09 120 mls/hr .Q8H20M JADE Administration Levofloxacin/Dextrose 750 mg in 150 mls @ 100 mls/hr 07/09/24 09:00 07/09/24 11:31 Levaquin Ivpb IV 07/16/24 08:59 100 mls/hr QDAY JADE Administration Melatonin 3 mg 07/05/24 21:10 07/05/24 21:48 Melatonin 3 Mg Tablet PO 08/05/24 20:59 3 mg HS PRN Administration insomnia Metoprolol Succinate 50 mg 07/07/24 12:15 07/09/24 11:30 Metoprolol Succinate Xl 25 Mg Tabcr PO 08/06/24 12:14 50 mg DAILY JADE Administration Nicotine 14 mg 07/05/24 16:45 07/09/24 11:31 Nicotine Patch 14 Mg/24 Hr Patch.Td24 TOP 08/04/24 16:44 Not Given QDAY JADE Ondansetron HCl 4 mg 07/05/24 16:56 Ondansetron Inj 2 Mg/Ml Inj 2 Ml IV 08/04/24 16:55 Q6H PRN NAUSEA OR VOMITING Protocol Pantoprazole Sodium 40 mg 07/07/24 21:00 07/09/24 11:30 Pantoprazole 40 Mg Tablet PO 08/06/24 20:59 40 mg BID JADE Administration Sennosides 1 tab 07/05/24 16:56 Senna Tablet PO 08/04/24 16:55 QDAY PRN constipation Protocol Trazodone HCl 100 mg 07/05/24 21:00 07/08/24 20:05 Trazodone Hcl 50 Mg Tablet PO 08/04/24 20:59 100 mg HS JADE Administration Plan Plan Mr. 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 Patient states that he has been having shortness of breath and cough with phlegm, runny nose, and chest congestion for the past 2 weeks and the primary care physician had had ordered an x-ray with findings consistent of pneumonia and he was prescribed azithromycin. #Pericardial effusion s/p pericardiocentesis and drain placement. #Tamponade, resolved. #Orthostatic hypotension. -Although patient has primary hypertension, when he gets up from lying position his blood pressure drops. -when Pt. was getting out of bed from laying position his BP drop to 84/58. Laying down blood pressure is 118/62. -Patient reports that his breathing is worse when he lays on his back. -CTA showed Pericardial effusion measuring up to 30 mm. -Bedside echo performed by Dr. Spencer showed significant pericardial effusion with tamponade, estimated volume 700 cc. -Pericardiocentesis was performed on 07/09 with 750 cc of brown-red fluid removal. plan: -Hold blood pressure medications and BPH medications. -Continue monitoring pericardial drain output, will remove when output less than 50 cc/day. #Sepsis 2/2 #Right-sided pneumonia. #Leukocytosis. #Lactic acidosis. -SIRS 3/4 - tachycardia, tachyapnea, leukocytosis. -Chest x-ray showed prominent diffuse right lung pneumonia and isolated scattered nodular opacities in the left lung. -lactic acid 3.1->4.4->3.4->4.2->6.1->3.2. -Rocephin 07/05-07/09; doxycycline 07/06-07/09 Plan: -Normal saline maintenance fluid. -started on levofloxacin. -Blood cultures preliminary negative. -Cocci - pending. -Trending lactic acid. #Acute liver failure. #Hepatitis C. -AST and ALT remain uptrending over the last several days, last reading 390 and 490 respectively. Alk phos 496, total bilirubin 0.3. On admission LFTs were within normal limits. -lactic acid 3.1->4.4->3.4->4.2->6.1->3.2. -US liver showed thickened gallbladder wall, consider HIDA scan or MRCP follow- up to exclude cholecystitis, multiple liver lesions which need additional diagnostic assessment. -Medication induced versus right heart failure and venous congestion in setting of tamponade. -Hepatitis panel was positive for hepatitis C. Plan: -Discontinue or hepatotoxic medications. -Continue IVF. -Continue to monitor labs. -GI is on board. #Suspected bowel ischemia. #Symptomatic acute anemia. #GI bleed. -Patient reports 3 episodes of melena -Hemoglobin on admission was 10.9, Hct 32.8. patient's baseline is Hgb 14. -CTA of abdomen showed suspicious for early small bowel ischemia, clinical correlation advised, consider surgical consultation. -General Surgery was consulted, Dr. Danielson on board, clinically patient unlikely has bowel ischemia. Plan: -GI consulted- appreciate Dr. Malave's recommendation. -General Surgery consulted, Dr. Danielson on board. -IV Protonix 40mg BID. -PUD diet. -avoid chemical anticoagualtion. #Primary Hypertension. #CAD s/p PCI. -Hold patient's home medication: Metoprolol, amlodipine, benazepril, clopidogrel. -Continue metoprolol succinate, hold other home antihypertensives for now. #Depression. -Resume home trazodone and mirtazapine. #BPH. -Hold home tamsulosin due to orthostatic hypotension episodes. -resume home finasteride. #History of CVA. -Patient has a history of CVA approximately 4 to 5 years ago with residual weakness in the left hand. Disposition: [facility] for management of Sepsis and GI bleed. DVT Prophylaxis: SCD QSHIFT. GI Prophylaxis: Pantoprozol-40 IV BID Diet: Cardiac or Diabetic Diet, carbohydrate consistent Code status: Full Plan of care discussed with attending Dr. Alvarado. Ilir Dixon MD, PGY 2. Disclaimer: This note was dictated by speech recognition. Minor errors in structured cabling technician may be present due to voice recognition software. Attending Provider Attestation/Addendum 74-year-old male with hypertension, hyperlipidemia with subsequent CAD status post stent placement and history of ischemic CVA with left hand residual deficits who presented to the ER with chief complaint of dark tarry stool found to have symptomatic anemia secondary to upper GI bleed and sepsis secondary to pneumonia. Currently, patient underwent CTA with findings of pericardial effusion with tamponade physiology and thus underwent pericardiocentesis with removal of 700 cc of fluid with improvement in blood pressure. Continue to monitor and patient continues to have catheter in place in the pericardial area. Studies for cytology. Appreciate cardiology input. I reviewed above note and agree with findings and plans. I have also personally examined the patient with medicine team and went over assessment and plan with medical team including analysis intern and resident physician.
[2024-07-09 14:14] LABS: Lactate (Lactic Acid) 3.3 mMol/L (0.4-2.0)
--- NOTE | 2024-07-09 14:46 | ESOP_ITS ---
RE: JUAN ANTONIO COELLO : 1950 DATE OF OPERATION: 07/09/2024 PREOPERATIVE DIAGNOSIS: Large pericardial effusion, cardiac tamponade and hemodynamic compromise. PROCEDURE: 1. Percutaneous pericardiocentesis with placement of pericardial drainage catheter, subxiphoid approach, CPT code 19766. 2. Conscious sedation. POSTOPERATIVE DIAGNOSIS: Successful pericardiocentesis with removal of 800 mL of fluid and placement of pericardial drainage catheter for further drainage of pericardial effusion. HISTORY AND INDICATIONS: The patient is a 74-year-old male with a known history of CAD, stent placement, hypertension admitted to the hospital with severe shortness of breath and GI bleeding. The patient's GI bleeding controlled. Gastritis was found. The patient remained acidotic and hypertensive. Cardiac workup showed evidence of large pericardial effusion and cardiac tamponade, hence pericardiocentesis and placement of drainage catheter placement was recommended. DESCRIPTION OF PROCEDURE: The patient was brought to cardiac catheterization laboratory. He was given 2 mg Versed for sedation and 50 mcg of fentanyl was given. Ultrasound guidance and echocardiogram guidance were used. Subxiphoid approach was taken, 1% Xylocaine local anesthesia was given. With 18-gauge needle, I was able to cannulate and entered the pericardial space, extra stiff J-wire was advanced and dilation was performed subsequently, after using a 7-Albanian dilator, 8-Albanian pericardiocentesis drainage catheter with multiple side holes was placed in the pericardial space and 800 mL of serosanguineous fluid was drained and the catheter was sutured in place to be removed later on. Post procedure cardiac echo showed no evidence of pericardial effusion. SUMMARY: Successful pericardiocentesis with placement of drainage catheter and pericardiotomy for further drainage over the next 2 days. COMPLICATIONS: None. RECOMMENDATIONS: The patient remained hemodynamically stable. Blood pressure in fact improved after the procedure. DT: 13:01:47 TT: 14:44:00 Ref: [id number] - TID: [id number] [facility]
[2024-07-09 14:58] LABS: Alanine Aminotransferase 469 U/L (10-49); Albumin, Serum 3.3 gm/dL (3.4-4.8); Albumin/Globulin Ratio 1.8 (1.2-2.2); Alkaline Phosphatase 474 U/L (46-116); Anion Gap 8 (7-16); Aspartate Amino Transferase 311 U/L (0-34); BUN/Creatinine Ratio 31 Ratio (12-20); Bilirubin,Total 0.4 mg/dL (0.3-1.2); Blood Urea Nitrogen 28 mg/dL (9-23); Calcium 8.5 mg/dL (8.3-10.6); Calcium (Corrected) 9.1 mg/dL (8.5-10.1); Carbon Dioxide 19.3 mMol/L (20.0-31.0); Chloride 108 mMol/L (98-107); Creatinine (Component) 0.9 mg/dL (0.6-1.3); Estimated Creatinine Clearance 69.4 mL/min (>60); Globulin 1.8 gm/dL (2.3-3.5); Glucose 127 mg/dL (74-106); LDH (Lactate Dehydrogenase) 386 U/L (120-246); Osmolality,Calculated 277 (275-295); Potassium 4.7 mMol/L (3.4-5.1); Sodium 135 mMol/L (136-145); Total Protein 5.1 gm/dL (5.7-8.2); eGFR > 60 See Note
[2024-07-09 15:35] LABS: Pericardial Fluid Mononuclear 92.5 %; Pericardial Fluid Polynuclear 7.5 %; Pericardial Fluid WBC 2279 /cmm
[2024-07-09 15:37] LABS: Pericardial Fluid Color Red
[2024-07-09 15:38] LABS: Pericardial Fluid Appearance Cloudy; Pericardial Fluid RBC 53000 /cmm
[2024-07-09] MEDS: SODIUM CHLORIDE 0.9% 1000 ML 1,000 ML 70 ML IV (15:47)
--- NOTE | 2024-07-09 15:51 | PC.SS ---
Rounding Note: Pericardiocentesis performed on the patient.
[2024-07-09 16:04] LABS: Amylase,Pericardial Fluid 134 IU/L; Glucose,Pericardial Fluid 14 mg/dL; LDH,Pericardial Fluid 709 IU/L; Protein Total,Pericardial Fld 4 g/dL
[2024-07-09 17:14] LABS: Reflex Lactate? Y
[2024-07-09 17:43] LABS: Lactic Acid, 3 HR 2.5 mMol/L (0.4-2.0)
--- NOTE | 2024-07-09 17:46 | ESPR_ITS ---
<Statement entered by Vinicio Spencer MD - 07/10/24 12:25> I personally evaluated the patient underwent successful pericardiocentesis today more than 800 cc of pink bloodstained fluid was removed and sent for analysis patient is doing well the catheter will be left in place for at least 24 to 48 hours we will try to remove the fluid again tomorrow. I agree with the treatment plan recommendation as formulated by Dr. 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 Patient also endorsed shortness of breath, cough with phlegm and runny nose with chest congestion from past 2 weeks. Patient was given azithromycin as outpatient for pneumonia seen on chest x-ray. He he also endorsed abdominal pain. Patient's reported that he has lost 14 pounds of weight with poor appetite. In the ED, patient's blood pressure was soft he was tachycardic and tachypneic. Initial labs revealed leukocytosis, normocytic anemia, mildly elevated ALP. Chest x-ray showed prominent diffuse right lung pneumonia and isolated scattered nodular opacities in the left lung. EKG showed sinus tachycardia, RBBB with heart rate 129. PMH: Hypertension, history of CVA CAD s/p PCI in 2019, COPD, depression PSH: PCI SH: Active tobacco smoker (smokes 10 cigarettes/day since the age of 17), occasionally drinks alcohol, denies illicit drugs use Cardiology team consulted due to recurrent hypotension, history of CAD post stents on Plavix and antihypertensives. Patient was seen and examined at the bedside. Patient is scheduled to get endoscopy per GI specialist. Primary team managing the patient with IV antibiotic therapy Rocephin and doxycycline. Continuing PPI therapy for GI bleed workup. Labs revealed hemoglobin stable at 11.3. Chemistry panel showed BUN 49 creatinine 1.0. Lactic acid uptrending at 4.0. Cocci IgM negative. Blood cultures pending. Recommended to stop Plavix and hold antihypertensive given soft blood pressure and sepsis. Given that patient has a history of PCI 4-5 years ago would benefit to stop Plavix. Continue treating infection given likely contributing factor for hypotension.F/u EGD results. Recent Echo from 2023 showed EF 67%a and nuclear scan was negative for any ischemia. 07/07/2024: Patient was seen and examined at the bedside. Patient's son was also present at the bedside. Patient reported that he was feeling loss of appetite and weight loss from last 4 months. Lactic acid down trended however remains elevated. Morning labs revealed leukocytosis, normocytic anemia. Chemistry panel showed mild acidosis with bicarb 19.4. Elevated ALP 383. Patient denied any abdominal pain. Recommended to continue IV antibiotic therapy for community-acquired pneumonia infection. Suggested to perform CTA abdomen to rule out mesenteric bowel ischemia. Recommended to discontinue fluids due to concern for fluid overload. No diuretic therapy recommended for now given lactic acidosis. Suggested to discontinue Plavix and antihypertensive. EGD showed esophageal ulcers at the GE junction, nonerosive gastritis, erythematous duodenopathy and GI specialist recommended to continue IV Protonix. Will likely follow on CTA abdomen results. All labs and orders were reviewed. 07/09/2024: Patient was seen and examined at the bedside. Patient underwent pericardiocentesis for pericardial effusion today performed by Dr. Spencer, puppet developer. Patient has been feeling a lot better since then. Vitals have been stable with mild tachycardia. Labs showed uptrending leukocytosis, stable hemoglobin. Chemistry panel showed mild hyponatremia. BUN 28. Lactic acid downtrending to 2.5. Elevated transaminases. Patient will be closely follow-up and pericardial catheter will be removed once fluid<50 cc. Continue IV Levaquin for treating infection. Will closely monitor for chest pain or shortness of breath. Continue metoprolol succinate 50 mg Once a day. repeated echocardiogram to evaluate post pericardiocentesis. All labs and orders were reviewed. Exam Vital Signs Temp Pulse Resp BP Pulse Ox O2 Del Method O2 Flow Rate 98.1 F 105 H 16 91/64 98 Nasal Cannula 3 07/09/24 16:00 07/09/24 16:00 07/09/24 16:00 07/09/24 16:00 07/09/24 16:00 07/09/24 16:00 07/09/24 16:00 Narrative Exam GENERAL: A&Ox3 . Awake, Not in acute distress, saturating well on 4 L NC. NEURO: mapping editor grossly intact, moves extremities x4 HEENT: Atraumatic, Normocephalic. mucous membranes moist. Eyes open, symmetrical, & clear. Mild JVD HEART: regular rate and rhythm. S1/S2. No murmurs rubs or gallops. Pericardial catheter seen. LUNGS: Clear to auscultation. Tachypneic. ABDOMEN: soft, non-distended, non-tender, bowel sounds heard, no guarding or rebound tenderness SKIN: No Rash or ecchymoses EXTREMITIES: No edema, tenderness, able to move all 4 extremities, pedal pulses palpated. Left upper extremity redness due to IV infiltration Psych: Appropriate mood and affect. Objective Labs 07/09/24 05:20 07/09/24 14:01 Labs: Laboratory Results - last 24 hr 07/06/24 07/08/24 07/08/24 05:38 15:14 17:27 WBC RBC Hgb Hct MCV MCH MCHC RDW Std Deviation Plt Count Neut % (Auto) Lymph % (Auto) [place] % (Auto) Eos % (Auto) Baso % (Auto) Neut # (Auto) Lymph # (Auto) [place] # (Auto) Eos # (Auto) Baso # (Auto) Immature Gran # (Auto) Absolute Nucleated RBC Immature Gran % Nucleated RBC % PT INR APTT Sodium Potassium 5.3 H D Chloride Carbon Dioxide Anion Gap BUN Creatinine Estim Creat Clear Calc eGFR BUN/Creatinine Ratio Glucose Calculated Osmolality Lactic Acid Calcium Corrected Calcium Total Bilirubin AST ALT Alkaline Phosphatase Lactate Dehydrogenase Total Creatine Kinase 254 H Total Protein Albumin Globulin Albumin/Globulin Ratio Pericard Color Pericard Appearance Pericard WBC Pericard RBC Pericar Polynuclear WBC Pericar Mononuclear WBC Pericard Total Protein Pericardial LDH Pericardial Glucose Pericardial Amylase Coccidioides IgG Ab Negative Hepatitis A IgM Ab Non Reactive Hep Bs Antigen Non Reactive Hep B Core IgM Ab Non Reactive Hepatitis C Antibody Reactive A 07/08/24 07/08/24 07/09/24 18:50 20:55 00:59 WBC RBC Hgb Hct MCV MCH MCHC RDW Std Deviation Plt Count Neut % (Auto) Lymph % (Auto) [place] % (Auto) Eos % (Auto) Baso % (Auto) Neut # (Auto) Lymph # (Auto) [place] # (Auto) Eos # (Auto) Baso # (Auto) Immature Gran # (Auto) Absolute Nucleated RBC Immature Gran % Nucleated RBC % PT INR APTT Sodium Potassium 5.2 H Chloride Carbon Dioxide Anion Gap BUN Creatinine Estim Creat Clear Calc eGFR BUN/Creatinine Ratio Glucose Calculated Osmolality Lactic Acid 4.7 H* 4.0 H Calcium Corrected Calcium Total Bilirubin AST ALT Alkaline Phosphatase Lactate Dehydrogenase Total Creatine Kinase Total Protein Albumin Globulin Albumin/Globulin Ratio Pericard Color Pericard Appearance Pericard WBC Pericard RBC Pericar Polynuclear WBC Pericar Mononuclear WBC Pericard Total Protein Pericardial LDH Pericardial Glucose Pericardial Amylase Coccidioides IgG Ab Hepatitis A IgM Ab Hep Bs Antigen Hep B Core IgM Ab Hepatitis C Antibody 07/09/24 07/09/24 07/09/24 05:20 07:53 08:19 WBC 21.4 H RBC 3.94 L Hgb 11.8 L Hct 36.0 L MCV 91 MCH 29.9 MCHC 32.8 RDW Std Deviation 48.1 H Plt Count 210 Neut % (Auto) 77 Lymph % (Auto) 7 L [place] % (Auto) 8 Eos % (Auto) 0 Baso % (Auto) 1 Neut # (Auto) 16.4 H Lymph # (Auto) 1.6 [place] # (Auto) 1.8 H Eos # (Auto) 0.1 Baso # (Auto) 0.1 Immature Gran # (Auto) 1.45 H Absolute Nucleated RBC 0.08 H Immature Gran % 7 H Nucleated RBC % 0 PT 13.7 H INR 1.3 APTT 27.1 Sodium 135 L Potassium 5.5 H 5.4 H Chloride 108 H Carbon Dioxide 18.5 L Anion Gap 9 BUN 35 H Creatinine 1.0 Estim Creat Clear Calc 62.5 eGFR > 60 BUN/Creatinine Ratio 35 H Glucose 115 H Calculated Osmolality 279 Lactic Acid 3.2 H 3.3 H Calcium 9.0 Corrected Calcium 9.3 Total Bilirubin 0.3 AST 390 H ALT 490 H Alkaline Phosphatase 496 H D Lactate Dehydrogenase Total Creatine Kinase Total Protein 5.5 L Albumin 3.6 Globulin 1.9 L Albumin/Globulin Ratio 1.9 Pericard Color Pericard Appearance Pericard WBC Pericard RBC Pericar Polynuclear WBC Pericar Mononuclear WBC Pericard Total Protein Pericardial LDH Pericardial Glucose Pericardial Amylase Coccidioides IgG Ab Hepatitis A IgM Ab Hep Bs Antigen Hep B Core IgM Ab Hepatitis C Antibody 07/09/24 07/09/24 07/09/24 09:20 14:01 17:36 WBC RBC Hgb Hct MCV MCH MCHC RDW Std Deviation Plt Count Neut % (Auto) Lymph % (Auto) [place] % (Auto) Eos % (Auto) Baso % (Auto) Neut # (Auto) Lymph # (Auto) [place] # (Auto) Eos # (Auto) Baso # (Auto) Immature Gran # (Auto) Absolute Nucleated RBC Immature Gran % Nucleated RBC % PT INR APTT Sodium 135 L Potassium 4.7 D Chloride 108 H Carbon Dioxide 19.3 L Anion Gap 8 BUN 28 H Creatinine 0.9 Estim Creat Clear Calc 69.4 eGFR > 60 BUN/Creatinine Ratio 31 H Glucose 127 H Calculated Osmolality 277 Lactic Acid 3.3 H 2.5 H Calcium 8.5 Corrected Calcium 9.1 Total Bilirubin 0.4 AST 311 H ALT 469 H Alkaline Phosphatase 474 H D Lactate Dehydrogenase 386 H Total Creatine Kinase Total Protein 5.1 L Albumin 3.3 L Globulin 1.8 L Albumin/Globulin Ratio 1.8 Pericard Color Red Pericard Appearance Cloudy Pericard WBC 2279 [place] [address] Pericar Polynuclear WBC 7.5 Pericar Mononuclear WBC 92.5 Pericard Total Protein 4 Pericardial LDH 709 Pericardial Glucose 14 Pericardial Amylase 134 Coccidioides IgG Ab Hepatitis A IgM Ab Hep Bs Antigen Hep B Core IgM Ab Hepatitis C Antibody ABG Interpretation ABG results: 07/08/24 10:35 ABG pH 7.26 L ABG pCO2 39 ABG pO2 71 L ABG HCO3 17 L ABG O2 Saturation 93 ABG Base Excess -9 L Quality Measures Quality Measures VTE prophylaxis (SCDs) Advance care planning discussed with:: patient Assessment & Plan Assessment Current Active Medications: Generic Name Dose Route Start Last Admin Trade Name Freq PRN Reason Stop Dose Admin Acetaminophen 650 mg 07/06/24 09:34 Acetaminophen Supp 650 Mg Supp DE 08/04/24 16:55 Q6HR PRN FEVER>101.5 Albuterol/Ipratropium 3 ml 07/05/24 22:00 07/05/24 23:45 Albuterol/Ipratropium (Duoneb) Rt Zamzam 3 Ml Nebu INH 08/04/24 21:59 3 ml Q2HR PRN Administration SHORTNESS OF BREATH OR WHEEZE Finasteride 5 mg 07/08/24 21:00 07/08/24 20:05 Finasteride 5 Mg Tablet PO 08/07/24 20:59 5 mg HS JADE Administration Levofloxacin/Dextrose 750 mg in 150 mls @ 100 mls/hr 07/09/24 09:00 07/09/24 11:31 Levaquin Ivpb IV 07/16/24 08:59 100 mls/hr QDAY JADE Administration Sodium Chloride 1,000 mls @ 70 mls/hr 07/09/24 15:30 07/09/24 15:47 Ns IV 07/10/24 15:29 70 mls/hr .[id number] JADE Administration Melatonin 3 mg 07/05/24 21:10 07/05/24 21:48 Melatonin 3 Mg Tablet PO 08/05/24 20:59 3 mg HS PRN Administration insomnia Metoprolol Succinate 50 mg 07/07/24 12:15 07/09/24 11:30 Metoprolol Succinate Xl 25 Mg Tabcr PO 08/06/24 12:14 50 mg DAILY JADE Administration Nicotine 14 mg 07/05/24 16:45 07/09/24 11:31 Nicotine Patch 14 Mg/24 Hr Patch.Td24 TOP 08/04/24 16:44 Not Given QDAY JADE Ondansetron HCl 4 mg 07/05/24 16:56 Ondansetron Inj 2 Mg/Ml Inj 2 Ml IV 08/04/24 16:55 Q6H PRN NAUSEA OR VOMITING Protocol Pantoprazole Sodium 40 mg 07/07/24 21:00 07/09/24 11:30 Pantoprazole 40 Mg Tablet PO 08/06/24 20:59 40 mg BID JADE Administration Sennosides 1 tab 07/05/24 16:56 Senna Tablet PO 08/04/24 16:55 QDAY PRN constipation Protocol Trazodone HCl 100 mg 07/05/24 21:00 07/08/24 20:05 Trazodone Hcl 50 Mg Tablet PO 08/04/24 20:59 100 mg HS JADE Administration Plan This 74-year-old male with past medical history significant for hypertension, CAD s/p PCI, 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 Chest x-ray showed prominent diffuse right lung pneumonia and isolated scattered nodular opacities in the left lung. EKG showed sinus tachycardia, RBBB with heart rate 129. # Pericardial effusion post pericardiocentesis ? Patient was found to have large pericardial effusion seen on CTA imaging. ? Patient is feeling a lot better and less short of breath. Plan: ? Repeated echocardiogram To evaluate post pericardiocentesis ? Pericardiocentesis performed today by puppet developer Dr. Spencer removed 800 cc and sent for analysis ? Follow-up on pericardial fluid analysis for cytology, fluid protein, amylase, AFB, culture and sensitivity ? Monitor patient for pain and shortness of breath ? Pericardial catheter left in and will remove once fluid<50 cc ? Pain management as needed # CAD post stents on Plavix # Orthostatic hypotension # History of hypertension ?Patient admitted for GI bleed workup. Presenting with black tarry stool. GI specialist following the case. Cardiology team consulted for recurrent hypotension episodes and for anticoagulation management. ? Patient is not complaining of chest pain or shortness of breath. Troponin I was negative. ? Echo from 2019 showed EF 65-70%. Patient underwent coronary angiogram in 2019 showing mild atherosclerotic plaque. No significant stenosis. ?Recent Echo from 2023 showed EF 67%a and nuclear scan was negative for any ischemia. ?EGD showed nonerosive gastritis and esophageal ulcers. Plan: ? Recommended to discontinue Plavix and stop antihypertensives ? Continue metoprolol succinate 50 mg once a day ?Recommended to stop fluid resuscitation given tachypnea seen on examination ? Continue Protonix 40 mg IV twice daily ? Treating underlying sepsis due to right-sided community-acquired pneumonia with antibiotics ? Monitor vitals closely ? Daily labs # Liver cirrhosis # History of hep C treated # Gastritis and per CT imaging duodenitis ?Patient denied any abdominal discomfort however lactic acid remain elevated ?CT abdomen revealed pericardial effusion with 30 mm, cirrhosis, mild ascites, gastritis active duodenitis and early small bowel ischemia. Cystitis. Plan ? Removed pericardial fluid today by performing pericardiocentesis ? Trend lactic acid ? Continue IV antibiotic therapy Other active problems: # Esophageal ulcers per EGD finding # Nonerosive gastritis #Sepsis likely secondary to #Right-sided community-acquired pneumonia # Lactic acidosis type B #Normocytic hypochromic anemia #Leukocytosis # Thrombocytopenia #Orthostatic hypotension #Acute anemia in the setting of #GI bleed-likely upper #Depression #BPH #History of CVA -- Rest of the management as per primary care team. Thank you very much for consulting cardiology team. Patient underwent pericardiocentesis for pericardial effusion today. He is feeling a lot better and will remove pericardial catheter once pericardial fluid<50 cc. Monitor closely for chest pain or shortness of breath. Repeating echocardiogram to evaluate post pericardiocentesis heart functions. Plan of care discussed with puppet developer, Dr. Tj Eden MD, PGY 2
--- NOTE | 2024-07-09 19:41 | ECHO_ITS ---
Transthoracic Echo Report Ht (in): 68 Wt (lb): 148 Exam Location: Portable Status: Inpatient Telemetry Monitor: Nisha Clark Indications: Procedure Performed: BP: 125 / 73 HR: 105 Rhythm: Tachycardia Technical Quality: Fair MEASUREMENTS (Male / Female) Normal Values 2D ECHO LV Diastolic Diameter PLAX 5.5 cm 4.2 - 5.9 / 3.9 - 5.3 cm LV Systolic Diameter PLAX 4.0 cm IVS Diastolic Thickness 0.8 cm 0.6 - 1.0 / 0.6 - 0.9 cm LVPW Diastolic Thickness 1.0 cm 0.6 - 1.0 / 0.6 - 0.9 cm LV Relative Wall Thickness 0.3 LVOT Diameter 1.8 cm Ascending Aorta Diameter 3.0 cm M-MODE Aortic Root Diameter MM 2.6 cm LA Systolic Diameter MM 3.4 cm LA Ao Ratio MM 1.3 AV Cusp Separation MM 1.7 cm DOPPLER AV Peak Velocity 185.0 cm/s AV Peak Gradient 13.7 mmHg AV Mean Gradient 7.0 mmHg AV Velocity Time Integral 28.4 cm LVOT Peak Velocity 128.0 cm/s LVOT Peak Gradient 6.6 mmHg LVOT Velocity Time Integral 22.7 cm LVOT Cardiac Index 3376.6 cm?/min?m? AV Area Cont Eq vti 2.0 cm? AV Area Cont Eq pk 1.8 cm? MV Peak Velocity 99.0 cm/s MV Peak Gradient 3.9 mmHg MV Mean Velocity 64.1 cm/s MV Mean Gradient 2.0 mmHg MV Area PHT 5.9 cm? Mitral E Point Velocity 47.6 cm/s Mitral A Point Velocity 86.1 cm/s Mitral E to A Ratio 0.6 LV E' Lateral Velocity 7.9 cm/s Mitral E to LV E' Lateral Ratio 6.0 LV E' Septal Velocity 5.5 cm/s Mitral E to LV E' Septal Ratio 8.6 TR Peak Velocity 183.0 cm/s TR Peak Gradient 13.4 mmHg FINDINGS Left Ventricle Normal left ventricular size, wall thickness, systolic function with no obvious regional wall motion abnormalities. The ejection fraction is visually estimated at 50-55%. Right Ventricle The right ventricle is mildly dilated. Normal systolic function. The estimated right ventricular sy stolic pressure, 23mmHg. RAP 10. Left Atrium The left atrium is normal by two-dimensional, color flow and Doppler imaging with no structural abnormalities, no thrombus formation present. Right Atrium The right atrium is severely dilated. Atrial Septum The interatrial septum appears normal with no evidence of a shunt. Aorta The aorta is normal by two-dimensional, color flow and Doppler interrogation. Mitral Valve The mitral valve is normal by two-dimensional, color flow and Doppler interrogation. There is no sig nificant mitral valve regurgitation. Aortic Valve The aortic valve is trileaflet. Mild sclerosis without stenosis. There is no significant aortic valv e regurgitation. Tricuspid Valve The tricuspid valve is normal by two-dimensional, color flow and Doppler interrogation. There is tra ce tricuspid valve regurgitation. Pulmonic Valve There is no significant pulmonic valve regurgitation. Vessels The pulmonary artery appears normal. The inferior vena cava pulmonary and hepatic veins appear xochitl l. Pericardium There is a moderate circumferential pericardial effusion. There is TV respiration variation and RA c ollapse. Other Findings left pleural effusion present. CONCLUSIONS There is a moderate circumferential pericardial effusion. There is TV respiration variation and RA c ollapse. Normal LV size and function. Estimated EF 55% Mild RV dilation. Normal RV function. Severe RA dilation Mild AV sclerosis without stenosis. Trace TR. left pleural effusion present. Nanci Soto (Electronically Signed) Final Date: 10 July 2024 12:40
[2024-07-09] MEDS: traZODone HCL 50 MG TABLET 100 MG PO (20:52)
[2024-07-09] MEDS: FINASTERIDE 5 MG TABLET PO (20:53)
[2024-07-10] VITALS (14 sets, daily range): BP systolic 97–130; BP diastolic 61–78; PULSE 96–160; RESP 16–27; TEMP 36.4–36.8; O2SAT 90–97
[2024-07-10] MEDS: SODIUM CHLORIDE 0.9% 1000 ML 1,000 ML 70 ML IV (05:48)
[2024-07-10 06:26] LABS: Basophils # (Auto) 0.1 Thou/mm3 (0.0-0.2); Basophils % (Auto) 1 % (0-2.5); Eosinophils # (Auto) 0.3 Thou/mm3 (0.0-0.5); Eosinophils % (Auto) 2 % (0-10); Hematocrit 36.4 % (41.0-53.0); Hemoglobin 12.1 g/dL (13.5-16.0); Immature Granulocytes % (Auto) 5 % (0-0); Immature Granulocytes Auto 0.75 Thou/mm3 (0.00-0.00); Lymphocytes # (Auto) 0.7 Thou/mm3 (1.0-4.8); Lymphocytes % (Auto) 5 % (10-50); Mean Corpuscular HGB Conc 33.2 g/dl (31.0-37.0); Mean Corpuscular Hemoglobin 30.3 pg (25.0-35.0); Mean Corpuscular Volume 91 fL (80-100); Monocytes # (Auto) 1.1 Thou/mm3 (0.0-0.8); Monocytes % (Auto) 8 % (0-12); Neutrophils # (Auto) 11.6 Thou/mm3 (1.8-7.7); Neutrophils % (Auto) 80 % (37-80); Nucleated Red Blood Cell # 0.06 Thou/mm3 (0.00-0.00); Nucleated Red Blood Cell % 0 /100 WBC (0); Platelet Count 187 Thou/mm3 (140-440); RDW Standard Deviation 47.3 fL (35.1-43.9); White Blood Count 14.5 Thou/mm3 (3.8-10.6)
[2024-07-10 07:21] LABS: Alanine Aminotransferase 394 U/L (10-49); Albumin, Serum 3.5 gm/dL (3.4-4.8); Albumin/Globulin Ratio 1.8 (1.2-2.2); Alkaline Phosphatase 531 U/L (46-116); Anion Gap 5 (7-16); Aspartate Amino Transferase 179 U/L (0-34); BUN/Creatinine Ratio 30 Ratio (12-20); Bilirubin,Total 0.5 mg/dL (0.3-1.2); Blood Urea Nitrogen 21 mg/dL (9-23); Calcium 8.7 mg/dL (8.3-10.6); Calcium (Corrected) 9.1 mg/dL (8.5-10.1); Carbon Dioxide 27.2 mMol/L (20.0-31.0); Chloride 106 mMol/L (98-107); Creatinine (Component) 0.7 mg/dL (0.6-1.3); Estimated Creatinine Clearance 89.2 mL/min (>60); Globulin 1.9 gm/dL (2.3-3.5); Glucose 86 mg/dL (74-106); Osmolality,Calculated 277 (275-295); Potassium 4.2 mMol/L (3.4-5.1); Sodium 138 mMol/L (136-145); Total Protein 5.4 gm/dL (5.7-8.2); eGFR > 60 See Note
[2024-07-10] MEDS: PANTOPRAZOLE 40 MG TABLET PO ×2 (10:19→20:18)
[2024-07-10] MEDS: METOPROLOL SUCCINATE XL 25 MG TABCR 50 MG PO (10:19)
[2024-07-10] MEDS: NICOTINE PATCH 14 MG/24 HR PATCH.TD24 TOP (10:20)
[2024-07-10] MEDS: LEVOFLOXACIN/D5W 750MG IVPB 750 MG/150 ML BAG 100 MG IV (10:21)
--- NOTE | 2024-07-10 12:40 | ESPR_ITS ---
<Statement entered by Ilir Dioxn MD - 07/10/24 18:31> Senior Resident Attestation: I supervised/discussed management plan with unpaid intern physician Dr. Rodriguez, and was involved in the care of this patient. I personally saw and examined the patient and discussed the assessment and plan with the entire medicine team, including my attending. I agree with the assessment and plan as documented. Patient's care was discussed with attending physician, Dr. Alvarado. Ilir Dixon MD PGY-2. Documentation for date of: 07/10/24 Subjective Subjective Interval history: 07/06: Overnight patient has not a rapid response for hypotension blood pressure was 84/62 and patient was having shortness of breath, patient received some breathing treatments and hemodynamic stable. This morning patient was seen and examined at bedside, patient was saturating well on room air. Patient endorses improvement in shortness of breath, denies chest pain, nausea, vomiting or abdominal pain. Patient states he feels much better and he can breathe comfortably. Denies any cough or wheezing. Patient requested that he would like to switch his azithromycin to something else because he believes that azithromycin is causing him the GI bleed. Patient has no other complaints 07/07: No overnight events. Pt is seen and examine at bedside. Pt endorses improvement on SOB form last night. Pt. is saturating on room air, pt denies chest pain, nausea, vomiting or abdominal pain.Pt states he was able to sleep last night because he was given him home trazadone, because melatonin does not help. Pt. has no complains. 07/08: review Dr. Waters note 07/09: review Dr. Waters note 07/10: No overnight events, patient is seen and examined at bedside. This morning patient endorses significant improvement in his shortness of breath, patient is saturating well on 1 L of oxygen. Patient states that his last bowel movement was 2 days ago and continues to notice dark stool. Patient also states that he has mild chest pain at the cath location. Patient denies any chest pain, nausea, vomiting or abdominal pain. Patient's lactic acid is downtrending to 2.5, AST and ALT is downtrending to 179 and 394. Alkaline phosphatase 531, and lactic dehydrogenase 386. Patient has no other complaints. Later in the afternoon patient was very tachycardic with a heart rate in the 130s to 140s stat EKG was ordered findings were consistent with A-fib with RVR. Repeat echo from this morning showed reaccumulation of pericardial fluid. Per Dr. Spencer's recommendation patient is started on amiodarone drip and plan to remove pericardial fluid. Exam Vital Signs Temp Pulse Resp BP Pulse Ox O2 Del Method O2 Flow Rate 98.0 F 102 H 19 103/71 94 L Nasal Cannula 4 07/10/24 12:00 07/10/24 12:00 07/10/24 12:00 07/10/24 12:00 07/10/24 12:00 07/10/24 12:00 07/10/24 12:00 Narrative Exam GENERAL: A&Ox3 . 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 mucous membranes moist. Eyes open, symmetrical, & clear HEART: Normal Heart Sounds, Pericardial catheter is seen LUNGS: Clear to auscultation ABDOMEN: soft, non-distended, non-tender, bowel sounds heard, no guarding or rebound tenderness SKIN: No Rash or ecchymoses EXTREMITIES: No edema, tenderness, able to move all 4 extremities, pedal pulses palpated Objective Labs 07/12/24 05:10 07/12/24 05:10 Labs: Laboratory Results - last 24 hr 07/09/24 07/09/24 07/09/24 09:20 14:01 17:36 WBC RBC Hgb Hct MCV MCH MCHC RDW Std Deviation Plt Count Neut % (Auto) Lymph % (Auto) Camp % (Auto) Eos % (Auto) Baso % (Auto) Neut # (Auto) Lymph # (Auto) Camp # (Auto) Eos # (Auto) Baso # (Auto) Immature Gran # (Auto) Absolute Nucleated RBC Immature Gran % Nucleated RBC % Sodium 135 L Potassium 4.7 D Chloride 108 H Carbon Dioxide 19.3 L Anion Gap 8 BUN 28 H Creatinine 0.9 Estim Creat Clear Calc 69.4 eGFR > 60 BUN/Creatinine Ratio 31 H Glucose 127 H Calculated Osmolality 277 Lactic Acid 3.3 H 2.5 H Calcium 8.5 Corrected Calcium 9.1 Total Bilirubin 0.4 AST 311 H ALT 469 H Alkaline Phosphatase 474 H D Lactate Dehydrogenase 386 H Total Protein 5.1 L Albumin 3.3 L Globulin 1.8 L Albumin/Globulin Ratio 1.8 Pericard Color Red Pericard Appearance Cloudy Pericard WBC 2279 [place] [address] Pericar Polynuclear WBC 7.5 Pericar Mononuclear WBC 92.5 Pericard Total Protein 4 Pericardial LDH 709 Pericardial Glucose 14 Pericardial Amylase 134 07/10/24 05:15 WBC 14.5 H D RBC 4.00 L Hgb 12.1 L Hct 36.4 L MCV 91 MCH 30.3 MCHC 33.2 RDW Std Deviation 47.3 H Plt Count 187 Neut % (Auto) 80 Lymph % (Auto) 5 L Camp % (Auto) 8 Eos % (Auto) 2 Baso % (Auto) 1 Neut # (Auto) 11.6 H Lymph # (Auto) 0.7 L Camp # (Auto) 1.1 H Eos # (Auto) 0.3 Baso # (Auto) 0.1 Immature Gran # (Auto) 0.75 H Absolute Nucleated RBC 0.06 H Immature Gran % 5 H Nucleated RBC % 0 Sodium 138 Potassium 4.2 D Chloride 106 Carbon Dioxide 27.2 Anion Gap 5 L BUN 21 Creatinine 0.7 Estim Creat Clear Calc 89.2 eGFR > 60 BUN/Creatinine Ratio 30 H Glucose 86 Calculated Osmolality 277 Lactic Acid Calcium 8.7 Corrected Calcium 9.1 Total Bilirubin 0.5 AST 179 H ALT 394 H Alkaline Phosphatase 531 H D Lactate Dehydrogenase Total Protein 5.4 L Albumin 3.5 Globulin 1.9 L Albumin/Globulin Ratio 1.8 Pericard Color Pericard Appearance Pericard WBC Pericard RBC Pericar Polynuclear WBC Pericar Mononuclear WBC Pericard Total Protein Pericardial LDH Pericardial Glucose Pericardial Amylase ABG Interpretation ABG results: 07/08/24 10:35 ABG pH 7.26 L ABG pCO2 39 ABG pO2 71 L ABG HCO3 17 L ABG O2 Saturation 93 ABG Base Excess -9 L Quality Measures Quality Measures VTE prophylaxis (SCDs) Advance care planning discussed with:: patient Assessment & Plan Assessment Current Active Medications: Generic Name Dose Route Start Last Admin Trade Name Freq PRN Reason Stop Dose Admin Acetaminophen 650 mg 07/06/24 09:34 Acetaminophen Supp 650 Mg Supp MS 08/04/24 16:55 Q6HR PRN FEVER>101.5 Albuterol/Ipratropium 3 ml 07/05/24 22:00 07/05/24 23:45 Albuterol/Ipratropium (Duoneb) Rt Zamzam 3 Ml Nebu INH 08/04/24 21:59 3 ml Q2HR PRN Administration SHORTNESS OF BREATH OR WHEEZE Finasteride 5 mg 07/08/24 21:00 07/09/24 20:53 Finasteride 5 Mg Tablet PO 08/07/24 20:59 5 mg HS JADE Administration Levofloxacin/Dextrose 750 mg in 150 mls @ 100 mls/hr 07/09/24 09:00 07/10/24 10:21 Levaquin Ivpb IV 07/16/24 08:59 100 mls/hr QDAY JADE Administration Sodium Chloride 1,000 mls @ 70 mls/hr 07/09/24 15:30 07/10/24 05:48 Ns IV 07/10/24 15:29 70 mls/hr .[id number] JADE Administration Melatonin 3 mg 07/05/24 21:10 07/05/24 21:48 Melatonin 3 Mg Tablet PO 08/05/24 20:59 3 mg HS PRN Administration insomnia Metoprolol Succinate 50 mg 07/07/24 12:15 07/10/24 10:19 Metoprolol Succinate Xl 25 Mg Tabcr PO 08/06/24 12:14 50 mg DAILY JADE Administration Nicotine 14 mg 07/05/24 16:45 07/10/24 10:20 Nicotine Patch 14 Mg/24 Hr Patch.Td24 TOP 08/04/24 16:44 14 mg QDAY JADE Administration Ondansetron HCl 4 mg 07/05/24 16:56 Ondansetron Inj 2 Mg/Ml Inj 2 Ml IV 08/04/24 16:55 Q6H PRN NAUSEA OR VOMITING Protocol Pantoprazole Sodium 40 mg 07/07/24 21:00 07/10/24 10:19 Pantoprazole 40 Mg Tablet PO 08/06/24 20:59 40 mg BID JADE Administration Sennosides 1 tab 07/05/24 16:56 Senna Tablet PO 08/04/24 16:55 QDAY PRN constipation Protocol Trazodone HCl 100 mg 07/05/24 21:00 07/09/24 20:52 Trazodone Hcl 50 Mg Tablet PO 08/04/24 20:59 100 mg HS JADE Administration Plan Mr. 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 Patient states that he has been having shortness of breath and cough with phlegm, runny nose, and chest congestion for the past 2 weeks and the primary care physician had had ordered an x-ray with findings consistent of pneumonia and he was prescribed azithromycin. #A-fib with RVR -Patient is heart rate was in the 130s to 140s -EKG findings with consistent with A-fib with RVR Plan: -Amiodarone drip started #Pericardial effusion s/p pericardiocentesis and drain placement. #Tamponade, resolved. #Orthostatic hypotension. -Although patient has primary hypertension, when he gets up from lying position his blood pressure drops. -when Pt. was getting out of bed from laying position his BP drop to 84/58. Laying down blood pressure is 118/62. -Patient reports that his breathing is worse when he lays on his back. -CTA showed Pericardial effusion measuring up to 30 mm. -Bedside echo performed by Dr. Spencer showed significant pericardial effusion with tamponade, estimated volume 700 cc. -Pericardiocentesis was performed on 07/09 with 750 cc of brown-red fluid removal. -Repeat echo 07/10-findings showed reaccumulation of pericardial fluid plan: -Hold blood pressure medications and BPH medications. -Continue monitoring pericardial drain output, will remove when output less than 50 cc/day. -Plan to remove pericardial fluid #Sepsis 2/2 #Right-sided pneumonia. #Leukocytosis. #Lactic acidosis. -SIRS 3/4 - tachycardia, tachyapnea, leukocytosis. -Chest x-ray showed prominent diffuse right lung pneumonia and isolated scattered nodular opacities in the left lung. -lactic acid 3.1->4.4->3.4->4.2->6.1->3.2->2.8 -Rocephin 07/05-07/09; doxycycline 07/06-07/09 Plan: -Normal saline maintenance fluid. -started on levofloxacin 07/09- -Blood cultures preliminary negative. -Cocci - negative -Lactic acid trending down #Acute liver failure. #Hepatitis C. -AST and ALT remain uptrending over the last several days, last reading 390 and 490 respectively. Alk phos 496, total bilirubin 0.3. On admission LFTs were within normal limits. -lactic acid 3.1->4.4->3.4->4.2->6.1->3.2 -> 2.8 -US liver showed thickened gallbladder wall, consider HIDA scan or MRCP follow- up to exclude cholecystitis, multiple liver lesions which need additional diagnostic assessment. -Medication induced versus right heart failure and venous congestion in setting of tamponade. -Hepatitis panel was positive for hepatitis C. Plan: -Discontinue or hepatotoxic medications. -Continue IVF. -Continue to monitor labs. -GI is on board -MRI of liver ordered- #Suspected bowel ischemia. #Symptomatic acute anemia. #GI bleed. -Patient reports 3 episodes of melena -Hemoglobin on admission was 10.9, Hct 32.8. patient's baseline is Hgb 14. -CTA of abdomen showed suspicious for early small bowel ischemia, clinical correlation advised, consider surgical consultation. -General Surgery was consulted, Dr. Danielson on board, clinically patient unlikely has bowel ischemia. Plan: -GI consulted- appreciate Dr. Malave's recommendation. -General Surgery consulted, Dr. Danielson on board. -IV Protonix 40mg BID. -PUD diet. -avoid chemical anticoagualtion. #Primary Hypertension. #CAD s/p PCI. -Hold patient's home medication: Metoprolol, amlodipine, benazepril, clopidogrel. -Continue metoprolol succinate, hold other home antihypertensives for now. #Depression. -Resume home trazodone and mirtazapine. #BPH. -Hold home tamsulosin due to orthostatic hypotension episodes. -resume home finasteride. #Nicotine dependence -Patient smokes approximately 10 cigarettes/day since the age of 17 -Counseled patient on smoking cessation -Nicotine patch ordered #History of CVA. -Patient has a history of CVA approximately 4 to 5 years ago with mild residual weakness in the left hand. Disposition: [facility] for management of Sepsis and GI bleed. DVT Prophylaxis: SCD QSHIFT. GI Prophylaxis: Pantoprozol-40 IV BID Diet: Cardiac or Diabetic Diet, carbohydrate consistent Code status: Full Assessment and plan discussed with my senior resident Dr. Dixon & attending physician Dr. Christiano Rodriguez (PGY-1)- Internal medicine resident Attending Provider Attestation/Addendum 74-year-old male with hepatitis C status post therapy, hypertension, hyperlipidemia with subsequent CAD status post stent placement and history of ischemic CVA with left hand residual deficits who presented to the ER with chief complaint of dark tarry stool found to have symptomatic anemia secondary to upper GI bleed and sepsis secondary to pneumonia. Currently, patient underwent CTA with findings of pericardial effusion with tamponade physiology and thus underwent pericardiocentesis with removal of 700 cc of fluid with improvement in blood pressure. Continue to monitor and patient continues to have catheter in place in the pericardial area. Studies for cytology. Appreciate cardiology input. Furthermore, patient also noted to have liver lesions and elevated transaminitis plan to pursue an MRI of the abdomen. Overnight, patient went into A-fib with RVR currently on amiodarone drip. Unable to anticoagulate given bleeding. I reviewed above note and agree with findings and plans. I have also personally examined the patient with medicine team and went over assessment and plan with medical team including unpaid intern and resident physician.
--- NOTE | 2024-07-10 13:37 | EKG_ITS ---
[facility] Test Date: 2024-07-10 Pat Name: JUAN ANTONIO COELLO [facility] Italian Teacher: MARCIN : 1950 Requested By: Tanner Rodriguez Order Number: [id number] Reading MD: Tanner Rodriguez Measurements Intervals [place] Rate: 136 P: SC: QRS: 97 QRSD: 140 T: 23 QT: 319 QTc: 480 Interpretive Statements ATRIAL FIBRILLATION WITH RAPID VENTRICULAR RESPONSE WITH ABERRANT CONDUCTION OR VENTRICULAR PREMATURE COMPLEXES INDETERMINATE AXIS RIGHT BUNDLE BRANCH BLOCK SEPTAL MYOCARDIAL INFARCTION , PROBABLY OLD Compared to ECG 07/08/2024 17:18:20 Ventricular premature complex(es) now present Aberrant conduction of supraventricular beat(s) now present Indeterminate axis now present Sinus rhythm no longer present Left-axis deviation no longer present Myocardial infarct finding still present /store/S0/[id number]
--- NOTE | 2024-07-10 14:19 | PC.SS ---
Rounding Note: MRI is pending.
--- NOTE | 2024-07-10 15:02 | ESPR_ITS ---
<Statement entered by Vinicio Spencer MD - 07/13/24 08:55> Patient is examined by me appears to be doing better following pericardiocentesis clinically improving but still annular shortness of breath continue to monitor the patient. I evaluated the patient along with Dr. Eden PGY 2 agree with the treatment plan recommendation will continue to monitor the patient will continue drain the pericardial fluid until it is less than 100 mL in a day. This may be malignant pericardial effusion since it is hemorrhagic we are waiting for the findings of cytology. 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 Patient also endorsed shortness of breath, cough with phlegm and runny nose with chest congestion from past 2 weeks. Patient was given azithromycin as outpatient for pneumonia seen on chest x-ray. He he also endorsed abdominal pain. Patient's reported that he has lost 14 pounds of weight with poor appetite. In the ED, patient's blood pressure was soft he was tachycardic and tachypneic. Initial labs revealed leukocytosis, normocytic anemia, mildly elevated ALP. Chest x-ray showed prominent diffuse right lung pneumonia and isolated scattered nodular opacities in the left lung. EKG showed sinus tachycardia, RBBB with heart rate 129. PMH: Hypertension, history of CVA CAD s/p PCI in 2019, COPD, depression PSH: PCI SH: Active tobacco smoker (smokes 10 cigarettes/day since the age of 17), occasionally drinks alcohol, denies illicit drugs use Cardiology team consulted due to recurrent hypotension, history of CAD post stents on Plavix and antihypertensives. Patient was seen and examined at the bedside. Patient is scheduled to get endoscopy per GI specialist. Primary team managing the patient with IV antibiotic therapy Rocephin and doxycycline. Continuing PPI therapy for GI bleed workup. Labs revealed hemoglobin stable at 11.3. Chemistry panel showed BUN 49 creatinine 1.0. Lactic acid uptrending at 4.0. Cocci IgM negative. Blood cultures pending. Recommended to stop Plavix and hold antihypertensive given soft blood pressure and sepsis. Given that patient has a history of PCI 4-5 years ago would benefit to stop Plavix. Continue treating infection given likely contributing factor for hypotension.F/u EGD results. Recent Echo from 2023 showed EF 67%a and nuclear scan was negative for any ischemia. 07/07/2024: Patient was seen and examined at the bedside. Patient's son was also present at the bedside. Patient reported that he was feeling loss of appetite and weight loss from last 4 months. Lactic acid down trended however remains elevated. Morning labs revealed leukocytosis, normocytic anemia. Chemistry panel showed mild acidosis with bicarb 19.4. Elevated ALP 383. Patient denied any abdominal pain. Recommended to continue IV antibiotic therapy for community-acquired pneumonia infection. Suggested to perform CTA abdomen to rule out mesenteric bowel ischemia. Recommended to discontinue fluids due to concern for fluid overload. No diuretic therapy recommended for now given lactic acidosis. Suggested to discontinue Plavix and antihypertensive. EGD showed esophageal ulcers at the GE junction, nonerosive gastritis, erythematous duodenopathy and GI specialist recommended to continue IV Protonix. Will likely follow on CTA abdomen results. All labs and orders were reviewed. 07/09/2024: Patient was seen and examined at the bedside. Patient underwent pericardiocentesis for pericardial effusion today performed by Dr. Spencer, door to door sales representative. Patient has been feeling a lot better since then. Vitals have been stable with mild tachycardia. Labs showed uptrending leukocytosis, stable hemoglobin. Chemistry panel showed mild hyponatremia. BUN 28. Lactic acid downtrending to 2.5. Elevated transaminases. Patient will be closely follow-up and pericardial catheter will be removed once fluid<50 cc. Continue IV Levaquin for treating infection. Will closely monitor for chest pain or shortness of breath. Continue metoprolol succinate 50 mg Once a day. repeated echocardiogram to evaluate post pericardiocentesis. All labs and orders were reviewed. 07/10/24: Patient was seen and examined at the bedside. Patient appears to be SOB and tachycardiac. Vitals shows tacycardia HR 140s EKG was consistent with A Fib with Rvr.Repeat Echo showed re-accumulation of fluid in pericardial space. Labs shows significant improvement in white count stable Hgb, Lactic acid was downtrending, Liver enzymes mildly improved.Echo showed There is a moderate circumferential pericardial effusion. We recommended to start amiodarone drip per protocol and will remove another 100 cc Pericardial fluid.Rest of the management remains same. Exam Vital Signs Temp Pulse Resp BP Pulse Ox O2 Del Method O2 Flow Rate 98.0 F 102 H 19 103/71 94 L Nasal Cannula 4 07/10/24 12:00 07/10/24 12:00 07/10/24 12:00 07/10/24 12:00 07/10/24 12:00 07/10/24 12:00 07/10/24 12:00 Narrative Exam GENERAL: A&Ox3 . Awake, Not in acute distress, saturating well on 4 L NC. NEURO: product manager financial services grossly intact, moves extremities x4 HEENT: Atraumatic, Normocephalic. mucous membranes moist. Eyes open, symmetrical, & clear. Mild JVD HEART: Irregular rate and irregular rhythm. S1/S2. No murmurs rubs or gallops. Pericardial catheter seen. LUNGS: Clear to auscultation. Tachypneic. ABDOMEN: soft, non-distended, non-tender, bowel sounds heard, no guarding or rebound tenderness SKIN: No Rash or ecchymoses EXTREMITIES: No edema, tenderness, able to move all 4 extremities, pedal pulses palpated. Left upper extremity redness due to IV infiltration Psych: Appropriate mood and affect. Objective Labs 07/10/24 05:15 07/10/24 05:15 Labs: Laboratory Results - last 24 hr 07/09/24 07/09/24 07/10/24 09:20 17:36 05:15 WBC 14.5 H D RBC 4.00 L Hgb 12.1 L Hct 36.4 L MCV 91 MCH 30.3 MCHC 33.2 RDW Std Deviation 47.3 H Plt Count 187 Neut % (Auto) 80 Lymph % (Auto) 5 L Jay % (Auto) 8 Eos % (Auto) 2 Baso % (Auto) 1 Neut # (Auto) 11.6 H Lymph # (Auto) 0.7 L Jay # (Auto) 1.1 H Eos # (Auto) 0.3 Baso # (Auto) 0.1 Immature Gran # (Auto) 0.75 H Absolute Nucleated RBC 0.06 H Immature Gran % 5 H Nucleated RBC % 0 Sodium 138 Potassium 4.2 D Chloride 106 Carbon Dioxide 27.2 Anion Gap 5 L BUN 21 Creatinine 0.7 Estim Creat Clear Calc 89.2 eGFR > 60 BUN/Creatinine Ratio 30 H Glucose 86 Calculated Osmolality 277 Lactic Acid 2.5 H Calcium 8.7 Corrected Calcium 9.1 Total Bilirubin 0.5 AST 179 H ALT 394 H Alkaline Phosphatase 531 H D Total Protein 5.4 L Albumin 3.5 Globulin 1.9 L Albumin/Globulin Ratio 1.8 Pericard Color Red Pericard Appearance Cloudy Pericard WBC 2279 Pericard RBC 68632 Pericar Polynuclear WBC 7.5 Pericar Mononuclear WBC 92.5 Pericard Total Protein 4 Pericardial LDH 709 Pericardial Glucose 14 Pericardial Amylase 134 ABG Interpretation ABG results: 07/08/24 10:35 ABG pH 7.26 L ABG pCO2 39 ABG pO2 71 L ABG HCO3 17 L ABG O2 Saturation 93 ABG Base Excess -9 L Quality Measures Quality Measures VTE prophylaxis (SCDs) Advance care planning discussed with:: patient Assessment & Plan Assessment Current Active Medications: Generic Name Dose Route Start Last Admin Trade Name Freq PRN Reason Stop Dose Admin Acetaminophen 650 mg 07/06/24 09:34 Acetaminophen Supp 650 Mg Supp NJ 08/04/24 16:55 Q6HR PRN FEVER>101.5 Albuterol/Ipratropium 3 ml 07/05/24 22:00 07/05/24 23:45 Albuterol/Ipratropium (Duoneb) Rt Zamzam 3 Ml Nebu INH 08/04/24 21:59 3 ml Q2HR PRN Administration SHORTNESS OF BREATH OR WHEEZE Finasteride 5 mg 07/08/24 21:00 07/09/24 20:53 Finasteride 5 Mg Tablet PO 08/07/24 20:59 5 mg HS JADE Administration Levofloxacin/Dextrose 750 mg in 150 mls @ 100 mls/hr 07/09/24 09:00 07/10/24 10:21 Levaquin Ivpb IV 07/16/24 08:59 100 mls/hr QDAY JADE Administration Sodium Chloride 1,000 mls @ 70 mls/hr 07/09/24 15:30 07/10/24 05:48 Ns IV 07/10/24 15:29 70 mls/hr .[id number] JADE Administration Amiodarone HCl/Dextrose 360 mg in 200 mls @ 33.333 mls/hr 07/10/24 14:53 Nexterone Ivpb IV 07/10/24 20:52 .Q6H ONE Amiodarone HCl/Dextrose 360 mg in 200 mls @ 16.667 mls/hr 07/10/24 20:53 Nexterone Ivpb IV 07/11/24 20:52 .Q12H AJDE Melatonin 3 mg 07/05/24 21:10 07/05/24 21:48 Melatonin 3 Mg Tablet PO 08/05/24 20:59 3 mg HS PRN Administration insomnia Metoprolol Succinate 50 mg 07/07/24 12:15 07/10/24 10:19 Metoprolol Succinate Xl 25 Mg Tabcr PO 08/06/24 12:14 50 mg DAILY JADE Administration Nicotine 14 mg 07/05/24 16:45 07/10/24 10:20 Nicotine Patch 14 Mg/24 Hr Patch.Td24 TOP 08/04/24 16:44 14 mg QDAY JADE Administration Ondansetron HCl 4 mg 07/05/24 16:56 Ondansetron Inj 2 Mg/Ml Inj 2 Ml IV 08/04/24 16:55 Q6H PRN NAUSEA OR VOMITING Protocol Pantoprazole Sodium 40 mg 07/07/24 21:00 07/10/24 10:19 Pantoprazole 40 Mg Tablet PO 08/06/24 20:59 40 mg BID JADE Administration Sennosides 1 tab 07/05/24 16:56 Senna Tablet PO 08/04/24 16:55 QDAY PRN constipation Protocol Trazodone HCl 100 mg 07/05/24 21:00 07/09/24 20:52 Trazodone Hcl 50 Mg Tablet PO 08/04/24 20:59 100 mg HS JADE Administration Plan This 74-year-old male with past medical history significant for hypertension, CAD s/p PCI, 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 Chest x-ray showed prominent diffuse right lung pneumonia and isolated scattered nodular opacities in the left lung. EKG showed sinus tachycardia, RBBB with heart rate 129. # Pericardial effusion post pericardiocentesis ? Patient was found to have large pericardial effusion seen on CTA imaging. ? Patient is feeling a lot better and less short of breath. ? Repeat Echo showed re-accumulation of fluid in pericardial space ? Pericardiocentesis performed today by door to door sales representative Dr. Spencer removed 800 cc and sent for analysis,07/09 Plan: ? Will repeat pericardiocentesis today for removing re-accumulation ? Follow-up on pericardial fluid analysis for cytology, fluid protein, amylase, AFB, culture and sensitivity ? Monitor patient for pain and shortness of breath ? Pericardial catheter left in and will remove once fluid<50 cc ? Pain management as needed #New Onset Atrial Fibrillation with Rvr ? Patient had a rapid heart rate. EKG showed A FIB with Rvr HR in 140s. ? [id number] score 3 Plan: ? Rec to start amiodarone drip per protoocol ? Another Pericardiocentesis to be performed today ? Patient has a risk of bleeding during pericardiocentesis therefore no anticoagulation rec at this point ? Keep Mag above 2 and K above 4 ? Monitor for chest pain and SOB # CAD post stents on Plavix # Orthostatic hypotension # History of hypertension ?Patient admitted for GI bleed workup. Presenting with black tarry stool. GI specialist following the case. Cardiology team consulted for recurrent hypotension episodes and for anticoagulation management. ? Patient is not complaining of chest pain or shortness of breath. Troponin I was negative. ? Echo from 2019 showed EF 65-70%. Patient underwent coronary angiogram in 2019 showing mild atherosclerotic plaque. No significant stenosis. ?Recent Echo from 2023 showed EF 67%a and nuclear scan was negative for any ischemia. ?EGD showed nonerosive gastritis and esophageal ulcers. Plan: ? Recommended to discontinue Plavix and stop antihypertensives ? Continue metoprolol succinate 50 mg once a day ?Recommended to stop fluid resuscitation given tachypnea seen on examination ? Continue Protonix 40 mg IV twice daily ? Treating underlying sepsis due to right-sided community-acquired pneumonia with antibiotics ? Monitor vitals closely ? Daily labs # Liver cirrhosis # History of hep C treated # Gastritis and per CT imaging duodenitis ?Patient denied any abdominal discomfort however lactic acid remain elevated ?CT abdomen revealed pericardial effusion with 30 mm, cirrhosis, mild ascites, gastritis active duodenitis and early small bowel ischemia. Cystitis. Plan ? Removed pericardial fluid today by performing pericardiocentesis ? Trend lactic acid ? Continue IV antibiotic therapy Other active problems: # Esophageal ulcers per EGD finding # Nonerosive gastritis #Sepsis likely secondary to #Right-sided community-acquired pneumonia # Lactic acidosis type B #Normocytic hypochromic anemia #Leukocytosis # Thrombocytopenia #Orthostatic hypotension #Acute anemia in the setting of #GI bleed-likely upper #Depression #BPH #History of CVA -- Rest of the management as per primary care team. Thank you very much for consulting cardiology team. Patient underwent pericardiocentesis for pericardial effusion today. He is feeling a lot better and will remove pericardial catheter once pericardial fluid<50 cc. Monitor closely for chest pain or shortness of breath. Repeating echocardiogram to evaluate post pericardiocentesis heart functions. Plan of care discussed with door to door sales representative, Dr. Tj Eden MD, PGY 2
[2024-07-10] MEDS: AMIODARONE 150 MG IVPB 150 MG/100 ML BAG 600 MG IV (15:11)
[2024-07-10] MEDS: AMIODARONE 360 MG IVPB 360 MG/200 ML BAG 33.333 MG IV (15:33)
--- NOTE | 2024-07-10 15:55 | PC.SS ---
VOLUNTEER SERVICES SUPERVISOR conducted bedside contact with the patient. Patient confirmed not possessing home oxygen. Patient currently on 4L. VOLUNTEER SERVICES SUPERVISOR informed patient that if home oxygen required at the time of discharge, referral will be submitted and oxygen delivered to patient's bedside prior to discharge. Patient acknowledged plan.
[2024-07-10 16:00] LABS: Phosphorous 2.2 mg/dL (2.4-5.1)
--- NOTE | 2024-07-10 19:36 | PC.NURSE ---
MRI attempted, fortino sahu held by md bragg for procedure. pt unable to lay flat for procedure. while laying flat pt desat to 82%. procedure was immediately stopped and pt stabilized. sat went up to 93 percent on 5L.
[2024-07-10] MEDS: traZODone HCL 50 MG TABLET 100 MG PO (20:17)
[2024-07-10] MEDS: FUROSEMIDE INJ 10 MG/ML 4ML VIAL 40 MG IVP (20:18)
[2024-07-10] MEDS: FINASTERIDE 5 MG TABLET PO (20:18)
[2024-07-10] MEDS: AMIODARONE 360 MG IVPB 360 MG/200 ML BAG 16.667 MG IV (22:26)
[2024-07-11] VITALS (14 sets, daily range): BP systolic 88–129; BP diastolic 55–91; PULSE 84–150; RESP 15–30; TEMP 36.1–36.8; O2SAT 94–97
[2024-07-11 05:59] LABS: Basophils # (Auto) 0.1 Thou/mm3 (0.0-0.2); Basophils % (Auto) 1 % (0-2.5); Eosinophils # (Auto) 0.2 Thou/mm3 (0.0-0.5); Eosinophils % (Auto) 1 % (0-10); Hematocrit 35.2 % (41.0-53.0); Hemoglobin 11.7 g/dL (13.5-16.0); Immature Granulocytes % (Auto) 5 % (0-0); Immature Granulocytes Auto 0.69 Thou/mm3 (0.00-0.00); Lymphocytes # (Auto) 0.9 Thou/mm3 (1.0-4.8); Lymphocytes % (Auto) 7 % (10-50); Mean Corpuscular HGB Conc 33.2 g/dl (31.0-37.0); Mean Corpuscular Hemoglobin 29.9 pg (25.0-35.0); Mean Corpuscular Volume 90 fL (80-100); Monocytes # (Auto) 1.2 Thou/mm3 (0.0-0.8); Monocytes % (Auto) 9 % (0-12); Neutrophils # (Auto) 10.9 Thou/mm3 (1.8-7.7); Neutrophils % (Auto) 78 % (37-80); Nucleated Red Blood Cell # 0.04 Thou/mm3 (0.00-0.00); Nucleated Red Blood Cell % 0 /100 WBC (0); Platelet Count 192 Thou/mm3 (140-440); RDW Standard Deviation 48.2 fL (35.1-43.9); Red Blood Count 3.91 Miln/mm3 (4.50-5.90); White Blood Count 14.1 Thou/mm3 (3.8-10.6)
[2024-07-11 06:35] LABS: Alanine Aminotransferase 279 U/L (10-49); Albumin, Serum 3.5 gm/dL (3.4-4.8); Albumin/Globulin Ratio 1.8 (1.2-2.2); Alkaline Phosphatase 554 U/L (46-116); Anion Gap 5 (7-16); Aspartate Amino Transferase 91 U/L (0-34); BUN/Creatinine Ratio 22 Ratio (12-20); Bilirubin,Total 0.5 mg/dL (0.3-1.2); Blood Urea Nitrogen 13 mg/dL (9-23); Calcium 8.9 mg/dL (8.3-10.6); Calcium (Corrected) 9.3 mg/dL (8.5-10.1); Chloride 102 mMol/L (98-107); Creatinine (Component) 0.6 mg/dL (0.6-1.3); Estimated Creatinine Clearance 104.1 mL/min (>60); Globulin 1.9 gm/dL (2.3-3.5); Glucose 105 mg/dL (74-106); Magnesium 1.9 mg/dL (1.6-2.6); Osmolality,Calculated 273 (275-295); Phosphorous 2.7 mg/dL (2.4-5.1); Sodium 137 mMol/L (136-145); Total Protein 5.4 gm/dL (5.7-8.2); eGFR > 60 See Note
[2024-07-11] MEDS: METOPROLOL SUCCINATE XL 25 MG TABCR 50 MG PO (09:16)
[2024-07-11] MEDS: PANTOPRAZOLE 40 MG TABLET PO ×2 (09:17→20:26)
[2024-07-11] MEDS: NICOTINE PATCH 14 MG/24 HR PATCH.TD24 TOP (09:19)
[2024-07-11] MEDS: LEVOFLOXACIN/D5W 750MG IVPB 750 MG/150 ML BAG 100 MG IV (09:21)
[2024-07-11] MEDS: FUROSEMIDE INJ 10 MG/ML 4ML VIAL 40 MG IVP ×2 (10:53→20:29)
[2024-07-11] MEDS: AMIODARONE 360 MG IVPB 360 MG/200 ML BAG 16.667 MG IV (10:57)
--- NOTE | 2024-07-11 14:35 | ESPR_ITS ---
<Statement entered by Vinicio Spencer MD - 07/13/24 09:06> I personally reviewed the findings and examined the patient will remove 300 cc of pericardial fluid patient with clinically stable there are some volume overload with third spacing and edema Lasix 40 mg will be given we are still waiting for the pathology report on pericardial fluid. Continue to leave the catheter in place for further drainage. All the findings are reviewed as documented by PGY 2 Dr. 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 Patient also endorsed shortness of breath, cough with phlegm and runny nose with chest congestion from past 2 weeks. Patient was given azithromycin as outpatient for pneumonia seen on chest x-ray. He he also endorsed abdominal pain. Patient's reported that he has lost 14 pounds of weight with poor appetite. In the ED, patient's blood pressure was soft he was tachycardic and tachypneic. Initial labs revealed leukocytosis, normocytic anemia, mildly elevated ALP. Chest x-ray showed prominent diffuse right lung pneumonia and isolated scattered nodular opacities in the left lung. EKG showed sinus tachycardia, RBBB with heart rate 129. PMH: Hypertension, history of CVA CAD s/p PCI in 2019, COPD, depression PSH: PCI SH: Active tobacco smoker (smokes 10 cigarettes/day since the age of 17), occasionally drinks alcohol, denies illicit drugs use Cardiology team consulted due to recurrent hypotension, history of CAD post stents on Plavix and antihypertensives. Patient was seen and examined at the bedside. Patient is scheduled to get endoscopy per GI specialist. Primary team managing the patient with IV antibiotic therapy Rocephin and doxycycline. Continuing PPI therapy for GI bleed workup. Labs revealed hemoglobin stable at 11.3. Chemistry panel showed BUN 49 creatinine 1.0. Lactic acid uptrending at 4.0. Cocci IgM negative. Blood cultures pending. Recommended to stop Plavix and hold antihypertensive given soft blood pressure and sepsis. Given that patient has a history of PCI 4-5 years ago would benefit to stop Plavix. Continue treating infection given likely contributing factor for hypotension.F/u EGD results. Recent Echo from 2023 showed EF 67%a and nuclear scan was negative for any ischemia. 07/07/2024: Patient was seen and examined at the bedside. Patient's son was also present at the bedside. Patient reported that he was feeling loss of appetite and weight loss from last 4 months. Lactic acid down trended however remains elevated. Morning labs revealed leukocytosis, normocytic anemia. Chemistry panel showed mild acidosis with bicarb 19.4. Elevated ALP 383. Patient denied any abdominal pain. Recommended to continue IV antibiotic therapy for community-acquired pneumonia infection. Suggested to perform CTA abdomen to rule out mesenteric bowel ischemia. Recommended to discontinue fluids due to concern for fluid overload. No diuretic therapy recommended for now given lactic acidosis. Suggested to discontinue Plavix and antihypertensive. EGD showed esophageal ulcers at the GE junction, nonerosive gastritis, erythematous duodenopathy and GI specialist recommended to continue IV Protonix. Will likely follow on CTA abdomen results. All labs and orders were reviewed. 07/09/2024: Patient was seen and examined at the bedside. Patient underwent pericardiocentesis for pericardial effusion today performed by Dr. Spencer, housing and residence life director. Patient has been feeling a lot better since then. Vitals have been stable with mild tachycardia. Labs showed uptrending leukocytosis, stable hemoglobin. Chemistry panel showed mild hyponatremia. BUN 28. Lactic acid downtrending to 2.5. Elevated transaminases. Patient will be closely follow-up and pericardial catheter will be removed once fluid<50 cc. Continue IV Levaquin for treating infection. Will closely monitor for chest pain or shortness of breath. Continue metoprolol succinate 50 mg Once a day. repeated echocardiogram to evaluate post pericardiocentesis. All labs and orders were reviewed. 07/10/24: Patient was seen and examined at the bedside. Patient appears to be SOB and tachycardiac. Vitals shows tacycardia HR 140s EKG was consistent with A Fib with Rvr.Repeat Echo showed re-accumulation of fluid in pericardial space. Labs shows significant improvement in white count stable Hgb, Lactic acid was downtrending, Liver enzymes mildly improved.Echo showed There is a moderate circumferential pericardial effusion. We recommended to start amiodarone drip per protocol and will remove another 100 cc Pericardial fluid.Rest of the management remains same. 07/11/2024: Patient was seen and examined at the bedside. Patient appears to be mildly short of breath and was tachypneic with a respiratory rate 30. He seemed to be hypotensive with blood pressure 88/66. Saturating 96% on 6 L NC. Labs revealed leukocytosis with white count 14.1, hemoglobin 11.7. Chemistry panel unremarkable. BUN and creatinine stable. Liver functions downtrending. Pending MRI abdomen with/without contrast. Primary team gave Lasix 40 mg IV x 1. Removed 300 cc pericardial fluid today. Agreeable to give Lasix 40 x 1. Will switch amiodarone IV to p.o. 200 mg once a day from tomorrow. All labs and orders were reviewed. Close monitoring of vitals. Exam Vital Signs Temp Pulse Resp BP Pulse Ox O2 Del Method O2 Flow Rate 98.2 F 90 30 H 88/66 L 96 Nasal Cannula 6 07/11/24 11:53 07/11/24 12:00 07/11/24 11:53 07/11/24 11:53 07/11/24 11:53 07/11/24 11:53 07/11/24 11:53 Narrative Exam GENERAL: A&Ox3 . Awake, Not in acute distress, saturating well on 6 L NC. 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 mucous membranes moist. Eyes open, symmetrical, & clear. Mild JVD HEART: Irregular rate and irregular rhythm. S1/S2. No murmurs rubs or gallops. Pericardial catheter seen. LUNGS: Clear to auscultation. Tachypneic. ABDOMEN: soft, non-distended, non-tender, bowel sounds heard, no guarding or rebound tenderness SKIN: No Rash or ecchymoses EXTREMITIES: No edema, tenderness, able to move all 4 extremities, pedal pulses palpated. Left upper extremity redness due to IV infiltration Psych: Appropriate mood and affect. Objective Labs 07/11/24 05:07 07/11/24 05:07 Labs: Laboratory Results - last 24 hr 07/10/24 07/11/24 15:36 05:07 WBC 14.1 H RBC 3.91 L Hgb 11.7 L Hct 35.2 L MCV 90 MCH 29.9 MCHC 33.2 RDW Std Deviation 48.2 H Plt Count 192 Neut % (Auto) 78 Lymph % (Auto) 7 L [place] % (Auto) 9 Eos % (Auto) 1 Baso % (Auto) 1 Neut # (Auto) 10.9 H Lymph # (Auto) 0.9 L [place] # (Auto) 1.2 H Eos # (Auto) 0.2 Baso # (Auto) 0.1 Immature Gran # (Auto) 0.69 H Absolute Nucleated RBC 0.04 H Immature Gran % 5 H Nucleated RBC % 0 Sodium 137 Potassium 4.0 Chloride 102 Carbon Dioxide 30.0 Anion Gap 5 L BUN 13 Creatinine 0.6 Estim Creat Clear Calc 104.1 eGFR > 60 BUN/Creatinine Ratio 22 H Glucose 105 Calculated Osmolality 273 L Calcium 8.9 Corrected Calcium 9.3 Phosphorus 2.2 L 2.7 Magnesium 2.0 1.9 Total Bilirubin 0.5 AST 91 H ALT 279 H Alkaline Phosphatase 554 H D Total Protein 5.4 L Albumin 3.5 Globulin 1.9 L Albumin/Globulin Ratio 1.8 ABG Interpretation ABG results: 07/08/24 10:35 ABG pH 7.26 L ABG pCO2 39 ABG pO2 71 L ABG HCO3 17 L ABG O2 Saturation 93 ABG Base Excess -9 L Quality Measures Quality Measures VTE prophylaxis (SCDs) Advance care planning discussed with:: other Assessment & Plan Assessment Current Active Medications: Generic Name Dose Route Start Last Admin Trade Name Freq PRN Reason Stop Dose Admin Acetaminophen 650 mg 07/06/24 09:34 Acetaminophen Supp 650 Mg Supp LA 08/04/24 16:55 Q6HR PRN FEVER>101.5 Albuterol/Ipratropium 3 ml 07/05/24 22:00 07/05/24 23:45 Albuterol/Ipratropium (Duoneb) Rt Zamzam 3 Ml Nebu INH 08/04/24 21:59 3 ml Q2HR PRN Administration SHORTNESS OF BREATH OR WHEEZE Finasteride 5 mg 07/08/24 21:00 07/10/24 20:18 Finasteride 5 Mg Tablet PO 08/07/24 20:59 5 mg HS JADE Administration Levofloxacin/Dextrose 750 mg in 150 mls @ 100 mls/hr 07/09/24 09:00 07/11/24 09:21 Levaquin Ivpb IV 07/16/24 08:59 100 mls/hr QDAY JADE Administration Amiodarone HCl/Dextrose 360 mg in 200 mls @ 16.667 mls/hr 07/10/24 20:53 07/11/24 10:57 Nexterone Ivpb IV 07/11/24 20:52 16.667 mls/hr .Q12H JADE Administration Melatonin 3 mg 07/05/24 21:10 07/05/24 21:48 Melatonin 3 Mg Tablet PO 08/05/24 20:59 3 mg HS PRN Administration insomnia Metoprolol Succinate 50 mg 07/07/24 12:15 07/11/24 09:16 Metoprolol Succinate Xl 25 Mg Tabcr PO 08/06/24 12:14 50 mg DAILY JADE Administration Nicotine 14 mg 07/05/24 16:45 07/11/24 09:19 Nicotine Patch 14 Mg/24 Hr Patch.Td24 TOP 08/04/24 16:44 14 mg QDAY JADE Administration Ondansetron HCl 4 mg 07/05/24 16:56 Ondansetron Inj 2 Mg/Ml Inj 2 Ml IV 08/04/24 16:55 Q6H PRN NAUSEA OR VOMITING Protocol Pantoprazole Sodium 40 mg 07/07/24 21:00 07/11/24 09:17 Pantoprazole 40 Mg Tablet PO 08/06/24 20:59 40 mg BID JADE Administration Sennosides 1 tab 07/05/24 16:56 Senna Tablet PO 08/04/24 16:55 QDAY PRN constipation Protocol Trazodone HCl 100 mg 07/05/24 21:00 07/10/24 20:17 Trazodone Hcl 50 Mg Tablet PO 08/04/24 20:59 100 mg HS JADE Administration Plan This 74-year-old male with past medical history significant for hypertension, CAD s/p PCI, 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 Chest x-ray showed prominent diffuse right lung pneumonia and isolated scattered nodular opacities in the left lung. EKG showed sinus tachycardia, RBBB with heart rate 129. # Pericardial effusion post pericardiocentesis ? Patient was found to have large pericardial effusion seen on CTA imaging. ? Patient is feeling a lot better and less short of breath. ? Repeat Echo showed re-accumulation of fluid in pericardial space ? Pericardiocentesis performed today by housing and residence life director Dr. Spencer removed 800 cc and sent for analysis,07/09 Plan: ? IV Lasix 40 mg given's x 1 ? Today removed 300 cc pericardial fluid will leave cath for one more day ? Follow-up on pericardial fluid analysis for cytology, fluid protein, amylase, AFB, culture and sensitivity ? Monitor patient for pain and shortness of breath ? Pericardial catheter left in and will remove once fluid<50 cc ? Pain management as needed #New Onset Atrial Fibrillation, rate controlled ? Patient had a rapid heart rate. EKG showed A FIB with Rvr HR in 140s. ? [id number] score 3 Plan: ? Rec to start amiodarone drip per protoocol and switching to p.o. amiodarone 200 mg once a day from tomorrow ? Another Pericardiocentesis to be performed today ? Patient has a risk of bleeding during pericardiocentesis therefore no anticoagulation rec at this point ? Keep Mag above 2 and K above 4 ? Monitor for chest pain and SOB # CAD post stents on Plavix # Orthostatic hypotension # History of hypertension ?Patient admitted for GI bleed workup. Presenting with black tarry stool. GI specialist following the case. Cardiology team consulted for recurrent hypotension episodes and for anticoagulation management. ? Patient is not complaining of chest pain or shortness of breath. Troponin I was negative. ? Echo showed that There is a moderate circumferential pericardial effusion. There is TV respiration variation and RA collapse. Normal LV size and function. Estimated EF 55%. Mild RV dilation. Normal RV function. Severe RA dilation Mild AV sclerosis without stenosis. Trace TR. left pleural effusion present. ?EGD showed nonerosive gastritis and esophageal ulcers. Plan: ? Recommended to discontinue Plavix and stop antihypertensives ? Continue metoprolol succinate 50 mg once a day ? Recommended to stop fluid resuscitation given tachypnea seen on examination ? Continue Protonix 40 mg IV twice daily ? Treating underlying sepsis due to right-sided community-acquired pneumonia with antibiotics ? Monitor vitals closely ? Daily labs # Liver cirrhosis # History of hep C treated # Gastritis and per CT imaging duodenitis ?Patient denied any abdominal discomfort however lactic acid remain elevated ?CT abdomen revealed pericardial effusion with 30 mm, cirrhosis, mild ascites, gastritis active duodenitis and early small bowel ischemia. Cystitis. Plan ? Removed pericardial fluid today by performing pericardiocentesis ? Trend lactic acid ? Continue IV antibiotic therapy Other active problems: # Esophageal ulcers per EGD finding # Nonerosive gastritis #Sepsis likely secondary to #Right-sided community-acquired pneumonia # Lactic acidosis type B #Normocytic hypochromic anemia #Leukocytosis # Thrombocytopenia #Orthostatic hypotension #Acute anemia in the setting of #GI bleed-likely upper #Depression #BPH #History of CVA -- Rest of the management as per primary care team. Thank you very much for consulting cardiology team.Removed 300 cc pericardial fluid and leaving cathetar for one more day. Switching to p.o. amiodarone once a day from tomorrow morning. Plan of care discussed with housing and residence life director, Dr. Tj Eden MD, PGY 2
--- NOTE | 2024-07-11 15:12 | ESPR_ITS ---
<Statement entered by Ilir Dixon MD - 07/11/24 17:22> Senior Resident Attestation: I supervised/discussed management plan with international logistics coordinator physician Dr. Rodriguez, and was involved in the care of this patient. I personally saw and examined the patient and discussed the assessment and plan with the entire medicine team, including my attending. I agree with the assessment and plan as documented. Patient's care was discussed with attending physician, Dr. Alvarado. Ilir Dixon MD PGY-2. Documentation for date of: 07/11/24 Subjective Subjective Interval history: 07/06: Overnight patient has not a rapid response for hypotension blood pressure was 84/62 and patient was having shortness of breath, patient received some breathing treatments and hemodynamic stable. This morning patient was seen and examined at bedside, patient was saturating well on room air. Patient endorses improvement in shortness of breath, denies chest pain, nausea, vomiting or abdominal pain. Patient states he feels much better and he can breathe comfortably. Denies any cough or wheezing. Patient requested that he would like to switch his azithromycin to something else because he believes that azithromycin is causing him the GI bleed. Patient has no other complaints 07/07: No overnight events. Pt is seen and examine at bedside. Pt endorses improvement on SOB form last night. Pt. is saturating on room air, pt denies chest pain, nausea, vomiting or abdominal pain. Pt states he was able to sleep last night because he was given him home trazadone, because melatonin does not help. Pt. has no complains. 07/08: review Dr. Waters note 07/09: review Dr. Waters note 07/10: No overnight events, patient is seen and examined at bedside. This morning patient endorses significant improvement in his shortness of breath, patient is saturating well on 1 L of oxygen. Patient states that his last bowel movement was 2 days ago and continues to notice dark stool. Patient also states that he has mild chest pain at the cath location. Patient denies any chest pain, nausea, vomiting or abdominal pain. Patient's lactic acid is downtrending to 2.5, AST and ALT is downtrending to 179 and 394. Alkaline phosphatase 531, and lactic dehydrogenase 386. Patient has no other complaints. Later in the afternoon patient was very tachycardic with a heart rate in the 130s to 140s stat EKG was ordered findings were consistent with A-fib with RVR. Repeat echo from this morning showed reaccumulation of pericardial fluid. Per Dr. Spencer's recommendation patient is started on amiodarone drip and plan to remove pericardial fluid. 07/11: No overnight events, patient seen and examined at bedside. Patient's is present, patient complains of some shortness of breath, but denies any chest pain. Currently patient is on 4 L of oxygen via nasal cannula. Patient also stated he noted to have swelling all over his body mostly prominent in the lower extremities. Patient denies any abdominal pain. Patient's MRI was not able to be done yesterday because patient was unable to lay flat for 30 minutes. This morning patient is continued on the amiodarone drip for the new finding of A-fib with RVR. Will attempt MRI today. Patient has no other complaints. Exam Vital Signs Temp Pulse Resp BP Pulse Ox O2 Del Method O2 Flow Rate 98.2 F 90 30 H 88/66 L 96 Nasal Cannula 6 07/11/24 11:53 07/11/24 12:00 07/11/24 11:53 07/11/24 11:53 07/11/24 11:53 07/11/24 11:53 07/11/24 11:53 Narrative Exam GENERAL: A&Ox3 . Awake, Not in acute distress, patient is very short of breath NEURO: staff anesthesiologist grossly intact, moves extremities x4 HEENT: Atraumatic, Normocephalic. mucous membranes moist. Eyes open, symmetrical, & clear HEART: Normal Heart Sounds, Pericardial catheter is seen LUNGS: Clear to auscultation ABDOMEN: soft, non-distended, non-tender, bowel sounds heard, no guarding or rebound tenderness SKIN: No Rash or ecchymoses EXTREMITIES: 2+ pitting edema, no tenderness, able to move all 4 extremities Objective Labs 07/12/24 05:10 07/12/24 05:10 Labs: Laboratory Results - last 24 hr 07/10/24 07/11/24 15:36 05:07 WBC 14.1 H RBC 3.91 L Hgb 11.7 L Hct 35.2 L MCV 90 MCH 29.9 MCHC 33.2 RDW Std Deviation 48.2 H Plt Count 192 Neut % (Auto) 78 Lymph % (Auto) 7 L [place] % (Auto) 9 Eos % (Auto) 1 Baso % (Auto) 1 Neut # (Auto) 10.9 H Lymph # (Auto) 0.9 L [place] # (Auto) 1.2 H Eos # (Auto) 0.2 Baso # (Auto) 0.1 Immature Gran # (Auto) 0.69 H Absolute Nucleated RBC 0.04 H Immature Gran % 5 H Nucleated RBC % 0 Sodium 137 Potassium 4.0 Chloride 102 Carbon Dioxide 30.0 Anion Gap 5 L BUN 13 Creatinine 0.6 Estim Creat Clear Calc 104.1 eGFR > 60 BUN/Creatinine Ratio 22 H Glucose 105 Calculated Osmolality 273 L Calcium 8.9 Corrected Calcium 9.3 Phosphorus 2.2 L 2.7 Magnesium 2.0 1.9 Total Bilirubin 0.5 AST 91 H ALT 279 H Alkaline Phosphatase 554 H D Total Protein 5.4 L Albumin 3.5 Globulin 1.9 L Albumin/Globulin Ratio 1.8 ABG Interpretation ABG results: 07/08/24 10:35 ABG pH 7.26 L ABG pCO2 39 ABG pO2 71 L ABG HCO3 17 L ABG O2 Saturation 93 ABG Base Excess -9 L Quality Measures Quality Measures VTE prophylaxis (SCDs) Advance care planning discussed with:: patient Assessment & Plan Assessment Current Active Medications: Generic Name Dose Route Start Last Admin Trade Name Freq PRN Reason Stop Dose Admin Acetaminophen 650 mg 07/06/24 09:34 Acetaminophen Supp 650 Mg Supp [place] 08/04/24 16:55 Q6HR PRN FEVER>101.5 Albuterol/Ipratropium 3 ml 07/05/24 22:00 07/05/24 23:45 Albuterol/Ipratropium (Duoneb) Rt Zamzam 3 Ml Nebu INH 08/04/24 21:59 3 ml Q2HR PRN Administration SHORTNESS OF BREATH OR WHEEZE Amiodarone HCl 200 mg 07/12/24 09:00 Amiodarone Hcl 200 Mg Tablet PO 08/11/24 08:59 QDAY JADE Finasteride 5 mg 07/08/24 21:00 07/10/24 20:18 Finasteride 5 Mg Tablet PO 08/07/24 20:59 5 mg HS JADE Administration Levofloxacin/Dextrose 750 mg in 150 mls @ 100 mls/hr 07/09/24 09:00 07/11/24 09:21 Levaquin Ivpb IV 07/16/24 08:59 100 mls/hr QDAY JADE Administration Amiodarone HCl/Dextrose 360 mg in 200 mls @ 16.667 mls/hr 07/10/24 20:53 07/11/24 10:57 Nexterone Ivpb IV 07/11/24 20:52 16.667 mls/hr .Q12H JADE Administration Melatonin 3 mg 07/05/24 21:10 07/05/24 21:48 Melatonin 3 Mg Tablet PO 08/05/24 20:59 3 mg HS PRN Administration insomnia Metoprolol Succinate 50 mg 07/07/24 12:15 07/11/24 09:16 Metoprolol Succinate Xl 25 Mg Tabcr PO 08/06/24 12:14 50 mg DAILY JADE Administration Nicotine 14 mg 07/05/24 16:45 07/11/24 09:19 Nicotine Patch 14 Mg/24 Hr Patch.Td24 TOP 08/04/24 16:44 14 mg QDAY JADE Administration Ondansetron HCl 4 mg 07/05/24 16:56 Ondansetron Inj 2 Mg/Ml Inj 2 Ml IV 08/04/24 16:55 Q6H PRN NAUSEA OR VOMITING Protocol Pantoprazole Sodium 40 mg 07/07/24 21:00 07/11/24 09:17 Pantoprazole 40 Mg Tablet PO 08/06/24 20:59 40 mg BID JADE Administration Sennosides 1 tab 07/05/24 16:56 Senna Tablet PO 08/04/24 16:55 QDAY PRN constipation Protocol Trazodone HCl 100 mg 07/05/24 21:00 07/10/24 20:17 Trazodone Hcl 50 Mg Tablet PO 08/04/24 20:59 100 mg HS JADE Administration Plan Mr. 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 Patient states that he has been having shortness of breath and cough with phlegm, runny nose, and chest congestion for the past 2 weeks and the primary care physician had had ordered an x-ray with findings consistent of pneumonia and he was prescribed azithromycin. #A-fib with RVR -Patient is heart rate was in the 130s to 140s -EKG findings with consistent with A-fib with RVR Plan: -Amiodarone drip started 07/10 after complete pt. will be switched to Amiodarone PO 200 mg once a day #Pericardial effusion s/p pericardiocentesis and drain placement. #Tamponade, resolved. #Orthostatic hypotension-resolved -Although patient has primary hypertension, when he gets up from lying position his blood pressure drops. -when Pt. was getting out of bed from laying position his BP drop to 84/58. Laying down blood pressure is 118/62. -Patient reports that his breathing is worse when he lays on his back. -CTA showed Pericardial effusion measuring up to 30 mm. -Bedside echo performed by Dr. Spencer showed significant pericardial effusion with tamponade, estimated volume 700 cc. -Pericardiocentesis was performed on 07/09 with 750 cc of brown-red fluid removal. -Repeat echo 07/10-findings showed reaccumulation of pericardial fluid plan: -Hold blood pressure medications and BPH medications. -Continue monitoring pericardial drain output, will remove when output less than 50 cc/day. -Plan to remove pericardial fluid # Bilateral lower extremity edema ?Patient has 2+ pitting edema likely in the setting of fluid overload due to IV fluids given during hospitalization -Lasix 40 Mg IV x 1 given on 07/11/2024 #Sepsis 2/2 #Right-sided pneumonia. #Leukocytosis. #Lactic acidosis. -SIRS 3/4 - tachycardia, tachyapnea, leukocytosis. -Chest x-ray showed prominent diffuse right lung pneumonia and isolated scattered nodular opacities in the left lung. -lactic acid 3.1->4.4->3.4->4.2->6.1->3.2->2.8 -Rocephin 07/05-07/09; doxycycline 07/06-07/09 Plan: -Normal saline maintenance fluid. -started on levofloxacin 07/09- -Blood cultures preliminary negative. -Cocci - negative -Lactic acid trending down #Acute liver failure. #Hepatitis C. -AST and ALT remain uptrending over the last several days, last reading 390 and 490 respectively. Alk phos 496, total bilirubin 0.3. On admission LFTs were within normal limits. -lactic acid 3.1->4.4->3.4->4.2->6.1->3.2 -> 2.8 -US liver showed thickened gallbladder wall, consider HIDA scan or MRCP follow- up to exclude cholecystitis, multiple liver lesions which need additional diagnostic assessment. -Medication induced versus right heart failure and venous congestion in setting of tamponade. -Hepatitis panel was positive for hepatitis C. Plan: -Discontinue or hepatotoxic medications. -Continue IVF. -Continue to monitor labs. -GI is on board -MRI of liver ordered-pending #Suspected bowel ischemia. #Symptomatic acute anemia. #GI bleed. -Patient reports 3 episodes of melena -Hemoglobin on admission was 10.9, Hct 32.8. patient's baseline is Hgb 14. -CTA of abdomen showed suspicious for early small bowel ischemia, clinical correlation advised, consider surgical consultation. -General Surgery was consulted, Dr. Danielson on board, clinically patient unlikely has bowel ischemia. Plan: -GI consulted- appreciate Dr. Malave's recommendation. -General Surgery consulted, Dr. Danielson on board. -IV Protonix 40mg BID. -PUD diet. -avoid chemical anticoagualtion. #Primary Hypertension. #CAD s/p PCI. -Hold patient's home medication: Metoprolol, amlodipine, benazepril, clopidogrel. -Continue metoprolol succinate, hold other home antihypertensives for now. #Depression. -Resume home trazodone and mirtazapine. #BPH. -Hold home tamsulosin due to orthostatic hypotension episodes. -resume home finasteride. #Nicotine dependence -Patient smokes approximately 10 cigarettes/day since the age of 17 -Counseled patient on smoking cessation -Nicotine patch ordered #History of CVA. -Patient has a history of CVA approximately 4 to 5 years ago with mild residual weakness in the left hand. Disposition: [facility] for management of Sepsis and GI bleed. DVT Prophylaxis: SCD QSHIFT. GI Prophylaxis: Pantoprozol-40 IV BID Diet: Cardiac or Diabetic Diet, carbohydrate consistent Code status: Full Assessment and plan discussed with my senior resident Dr. Dixon & attending physician Dr. Christiano Rodriguez (PGY-1)- Internal medicine resident Attending Provider Attestation/Addendum 74-year-old male with hepatitis C status post therapy, hypertension, hyperlipidemia with subsequent CAD status post stent placement and history of ischemic CVA with left hand residual deficits who presented to the ER with chief complaint of dark tarry stool found to have symptomatic anemia secondary to upper GI bleed and sepsis secondary to pneumonia. Currently, patient underwent CTA with findings of pericardial effusion with tamponade physiology and thus underwent pericardiocentesis with removal of 700 cc of fluid with improvement in blood pressure. Continue to monitor and patient continues to have catheter in place in the pericardial area. Studies for cytology. Appreciate cardiology input. Furthermore, patient also noted to have liver lesions and elevated transaminitis plan to pursue an MRI of the abdomen. Overnight, patient went into A-fib with RVR currently on amiodarone drip. Unable to anticoagulate given bleeding. I reviewed above note and agree with findings and plans. I have also personally examined the patient with medicine team and went over assessment and plan with medical team including international logistics coordinator and resident physician.
[2024-07-11] MEDS: traZODone HCL 50 MG TABLET 100 MG PO (20:26)
[2024-07-11] MEDS: FINASTERIDE 5 MG TABLET PO (20:27)
--- NOTE | 2024-07-11 21:12 | EKG_ITS ---
[facility] Test Date: 2024-07-11 Pat Name: JUAN ANTONIO COELLO [facility] Supervisor Treating And Pumping: ROMEL : 1950 Requested By: Avery Chu Order Number: [id number] Reading MD: Avery Chu Measurements Intervals [place] Rate: 132 P: DC: QRS: 99 QRSD: 148 T: -41 QT: 366 QTc: 544 Interpretive Statements ATRIAL FIBRILLATION WITH RAPID VENTRICULAR RESPONSE RIGHT BUNDLE BRANCH BLOCK SEPTAL MYOCARDIAL INFARCTION , OF INDETERMINATE AGE Compared to ECG 07/10/2024 14:09:56 Ventricular premature complex(es) no longer present Aberrant conduction of supraventricular beat(s) no longer present Indeterminate axis no longer present Myocardial infarct finding still present /store/S0/[id number].pdf
--- NOTE | 2024-07-11 21:30 | PC.NURSE ---
Patient sitting on the side of his bed. Noted HR 150 and rhythm change noted, Afib. When patient checked no complaints of chest pain, no shortness of breath noted. Asymptomatic, no signs of distress. Dr. Chu notified and came to see patient at bedside. EKG ordered, did show Afib. Patient still on Amiodarone drip for the next 3 hours. Magnesium 2 gms IV x 1 ordered. Orders to call physician if HR sustains over 135. Will monitor patient closely.
[2024-07-11] MEDS: Magnesium Sulfate 2 GM Ivpb 2 GM/50 ML BAG IV (21:57)
[2024-07-12] VITALS (24 sets, daily range): BP systolic 93–142; BP diastolic 54–81; PULSE 97–132; RESP 14–24; TEMP 35.9–36.8; O2SAT 92–98
--- NOTE | 2024-07-12 02:30 | PC.NURSE ---
Patient converted to sinus rhythm HR 97. Resting well. Will monitor further.
--- NOTE | 2024-07-12 05:50 | EKG_ITS ---
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: DELFINA : 1950 Requested By: Avery Chu Order Number: [id number] Reading MD: Avery Chu Measurements Intervals [place] Rate: 133 P: GA: QRS: 127 QRSD: 138 T: 0 QT: 226 QTc: 336 Interpretive Statements ATRIAL FLUTTER/TACHYCARDIA WITH RAPID VENTRICULAR RESPONSE WITH ABERRANT CONDUCTION OR VENTRICULAR PREMATURE COMPLEXES MARKED RIGHT AXIS DEVIATION RIGHT BUNDLE BRANCH BLOCK SEPTAL MYOCARDIAL INFARCTION , OF INDETERMINATE AGE ST DEPRESSION, CONSIDER SUBENDOCARDIAL INJURY Compared to ECG 07/11/2024 21:23:28 Ventricular premature complex(es) now present Aberrant conduction of supraventricular beat(s) now present Right-axis deviation now present ST (T wave) deviation now present Atrial fibrillation no longer present Myocardial infarct finding still present /store/S0/[id number].pdf
[2024-07-12 06:16] LABS: Basophils # (Auto) 0.1 Thou/mm3 (0.0-0.2); Basophils % (Auto) 1 % (0-2.5); Eosinophils # (Auto) 0.2 Thou/mm3 (0.0-0.5); Eosinophils % (Auto) 1 % (0-10); Hematocrit 37.7 % (41.0-53.0); Hemoglobin 12.7 g/dL (13.5-16.0); Immature Granulocytes % (Auto) 2 % (0-0); Immature Granulocytes Auto 0.33 Thou/mm3 (0.00-0.00); Lymphocytes # (Auto) 1.1 Thou/mm3 (1.0-4.8); Lymphocytes % (Auto) 7 % (10-50); Mean Corpuscular HGB Conc 33.7 g/dl (31.0-37.0); Mean Corpuscular Hemoglobin 30.1 pg (25.0-35.0); Mean Corpuscular Volume 89 fL (80-100); Monocytes # (Auto) 1.2 Thou/mm3 (0.0-0.8); Monocytes % (Auto) 8 % (0-12); Neutrophils # (Auto) 12.5 Thou/mm3 (1.8-7.7); Neutrophils % (Auto) 81 % (37-80); Nucleated Red Blood Cell % 0 /100 WBC (0); Platelet Count 202 Thou/mm3 (140-440); Red Blood Count 4.22 Miln/mm3 (4.50-5.90); White Blood Count 15.5 Thou/mm3 (3.8-10.6)
[2024-07-12] MEDS: METOPROLOL SUCCINATE XL 25 MG TABCR 50 MG PO (06:23)
[2024-07-12 07:14] LABS: Alanine Aminotransferase 224 U/L (10-49); Albumin, Serum 3.6 gm/dL (3.4-4.8); Albumin/Globulin Ratio 1.8 (1.2-2.2); Alkaline Phosphatase 570 U/L (46-116); Anion Gap 6 (7-16); Aspartate Amino Transferase 75 U/L (0-34); BUN/Creatinine Ratio 20 Ratio (12-20); Bilirubin,Total 0.7 mg/dL (0.3-1.2); Blood Urea Nitrogen 12 mg/dL (9-23); Calcium 8.8 mg/dL (8.3-10.6); Calcium (Corrected) 9.1 mg/dL (8.5-10.1); Carbon Dioxide 35.9 mMol/L (20.0-31.0); Chloride 97 mMol/L (98-107); Creatinine (Component) 0.6 mg/dL (0.6-1.3); Estimated Creatinine Clearance 104.1 mL/min (>60); Glucose 101 mg/dL (74-106); Osmolality,Calculated 277 (275-295); Phosphorous 2.7 mg/dL (2.4-5.1); Potassium 3.4 mMol/L (3.4-5.1); Sodium 139 mMol/L (136-145); Total Protein 5.6 gm/dL (5.7-8.2); eGFR > 60 See Note
[2024-07-12 07:17] LABS: Troponin I 0.094 ng/mL (0.0-0.045)
[2024-07-12] MEDS: AMIODARONE 360 MG IVPB 360 MG/200 ML BAG 16.667 MG IV ×2 (07:38→18:55)
--- NOTE | 2024-07-12 09:32 | PC.SS ---
Update: Plan is for the patient to receive an EGD today.
[2024-07-12] MEDS: NICOTINE PATCH 14 MG/24 HR PATCH.TD24 TOP (09:34)
[2024-07-12] MEDS: PANTOPRAZOLE INJ 40 MG VIAL IV ×2 (09:34→21:43)
[2024-07-12] MEDS: LEVOFLOXACIN/D5W 750MG IVPB 750 MG/150 ML BAG 100 MG IV (09:34)
[2024-07-12] MEDS: POTASSIUM CHLORIDE 20 mEq TABCR 40 MEQ PO (10:31)
[2024-07-12] MEDS: FUROSEMIDE INJ 10 MG/ML 4ML VIAL 40 MG IVP ×2 (10:31→17:21)
[2024-07-12] MEDS: DIGOXIN INJ 0.25 MG/ML AMP 2 ML IVP (10:32)
[2024-07-12 12:11] LABS: Troponin I 0.071 ng/mL (0.0-0.045)
--- NOTE | 2024-07-12 14:35 | ESPR_ITS ---
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 The patient is doing much better now fluid is not drained today we will plan on draining the pericardial fluid tomorrow. I evaluated the patient all the components of the note are reviewed and agree with the treatment plan recommendation as documented by PGY 2 Dr. 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 Patient also endorsed shortness of breath, cough with phlegm and runny nose with chest congestion from past 2 weeks. Patient was given azithromycin as outpatient for pneumonia seen on chest x-ray. He he also endorsed abdominal pain. Patient's reported that he has lost 14 pounds of weight with poor appetite. In the ED, patient's blood pressure was soft he was tachycardic and tachypneic. Initial labs revealed leukocytosis, normocytic anemia, mildly elevated ALP. Chest x-ray showed prominent diffuse right lung pneumonia and isolated scattered nodular opacities in the left lung. EKG showed sinus tachycardia, RBBB with heart rate 129. PMH: Hypertension, history of CVA CAD s/p PCI in 2019, COPD, depression PSH: PCI SH: Active tobacco smoker (smokes 10 cigarettes/day since the age of 17), occasionally drinks alcohol, denies illicit drugs use Cardiology team consulted due to recurrent hypotension, history of CAD post stents on Plavix and antihypertensives. Patient was seen and examined at the bedside. Patient is scheduled to get endoscopy per GI specialist. Primary team managing the patient with IV antibiotic therapy Rocephin and doxycycline. Continuing PPI therapy for GI bleed workup. Labs revealed hemoglobin stable at 11.3. Chemistry panel showed BUN 49 creatinine 1.0. Lactic acid uptrending at 4.0. Cocci IgM negative. Blood cultures pending. Recommended to stop Plavix and hold antihypertensive given soft blood pressure and sepsis. Given that patient has a history of PCI 4-5 years ago would benefit to stop Plavix. Continue treating infection given likely contributing factor for hypotension.F/u EGD results. Recent Echo from 2023 showed EF 67%a and nuclear scan was negative for any ischemia. 07/07/2024: Patient was seen and examined at the bedside. Patient's son was also present at the bedside. Patient reported that he was feeling loss of appetite and weight loss from last 4 months. Lactic acid down trended however remains elevated. Morning labs revealed leukocytosis, normocytic anemia. Chemistry panel showed mild acidosis with bicarb 19.4. Elevated ALP 383. Patient denied any abdominal pain. Recommended to continue IV antibiotic therapy for community-acquired pneumonia infection. Suggested to perform CTA abdomen to rule out mesenteric bowel ischemia. Recommended to discontinue fluids due to concern for fluid overload. No diuretic therapy recommended for now given lactic acidosis. Suggested to discontinue Plavix and antihypertensive. EGD showed esophageal ulcers at the GE junction, nonerosive gastritis, erythematous duodenopathy and GI specialist recommended to continue IV Protonix. Will likely follow on CTA abdomen results. All labs and orders were reviewed. 07/09/2024: Patient was seen and examined at the bedside. Patient underwent pericardiocentesis for pericardial effusion today performed by Dr. Spencer, staff nurse midwife. Patient has been feeling a lot better since then. Vitals have been stable with mild tachycardia. Labs showed uptrending leukocytosis, stable hemoglobin. Chemistry panel showed mild hyponatremia. BUN 28. Lactic acid downtrending to 2.5. Elevated transaminases. Patient will be closely follow-up and pericardial catheter will be removed once fluid<50 cc. Continue IV Levaquin for treating infection. Will closely monitor for chest pain or shortness of breath. Continue metoprolol succinate 50 mg Once a day. repeated echocardiogram to evaluate post pericardiocentesis. All labs and orders were reviewed. 07/10/24: Patient was seen and examined at the bedside. Patient appears to be SOB and tachycardiac. Vitals shows tacycardia HR 140s EKG was consistent with A Fib with Rvr.Repeat Echo showed re-accumulation of fluid in pericardial space. Labs shows significant improvement in white count stable Hgb, Lactic acid was downtrending, Liver enzymes mildly improved.Echo showed There is a moderate circumferential pericardial effusion. We recommended to start amiodarone drip per protocol and will remove another 100 cc Pericardial fluid.Rest of the management remains same. 07/11/2024: Patient was seen and examined at the bedside. Patient appears to be mildly short of breath and was tachypneic with a respiratory rate 30. He seemed to be hypotensive with blood pressure 88/66. Saturating 96% on 6 L NC. Labs revealed leukocytosis with white count 14.1, hemoglobin 11.7. Chemistry panel unremarkable. BUN and creatinine stable. Liver functions downtrending. Pending MRI abdomen with/without contrast. Primary team gave Lasix 40 mg IV x 1. Removed 300 cc pericardial fluid today. Agreeable to give Lasix 40 x 1. Will switch amiodarone IV to p.o. 200 mg once a day from tomorrow. All labs and orders were reviewed. Close monitoring of vitals. 07/12/2024: Patient was seen and examined at the bedside. Patient had multiple episodes of rapid heart rate in night team was called.Vitals showed blood pressure 102/68, heart rate 127, tachypnea RR 21 and afebrile. He was saturating 98% on 4 L nasal cannula. Labs revealed white count 15.5, hemoglobin 12.7. Chemistry panel showed mild hypokalemia. Kidney function stable. Liver enzymes slightly improved. Troponin I downtrending. Pericardial fluid cytology showing adenocarcinoma. Recommended to start another bag o amiodarone drip for rate control. Electrolytes were repleted. Family will be updated regarding the plan. Primary team started Lasix 40 IV twice daily due to fluid overload state and patient showed diuresis output of 4 L with negative balance of 3 L. GI to perform another EGD given concern for adenocarcinoma of the stomach All labs and orders were reviewed. Exam Vital Signs Temp Pulse Resp BP Pulse Ox O2 Del Method O2 Flow Rate 97.6 F 127 H 21 H 102/68 98 Nasal Cannula 4 07/12/24 12:00 07/12/24 12:00 07/12/24 12:00 07/12/24 12:00 07/12/24 12:00 07/12/24 12:00 07/12/24 12:00 Narrative Exam GENERAL: A&Ox3 . Awake, Not in acute distress, saturating well on 6 L NC. 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 mucous membranes moist. Eyes open, symmetrical, & clear. Mild JVD HEART: Irregular rate and irregular rhythm. S1/S2. No murmurs rubs or gallops. Pericardial catheter seen. LUNGS: Clear to auscultation. Tachypneic. ABDOMEN: soft, non-distended, non-tender, bowel sounds heard, no guarding or rebound tenderness SKIN: No Rash or ecchymoses EXTREMITIES: No edema, tenderness, able to move all 4 extremities, pedal pulses palpated. Left upper extremity redness due to IV infiltration Psych: Appropriate mood and affect. Objective Labs 07/12/24 05:10 07/12/24 05:10 Labs: Laboratory Results - last 24 hr 07/12/24 07/12/24 05:10 11:22 WBC 15.5 H RBC 4.22 L Hgb 12.7 L Hct 37.7 L MCV 89 MCH 30.1 MCHC 33.7 RDW Std Deviation 47.0 H Plt Count 202 Neut % (Auto) 81 H Lymph % (Auto) 7 L [place] % (Auto) 8 Eos % (Auto) 1 Baso % (Auto) 1 Neut # (Auto) 12.5 H Lymph # (Auto) 1.1 [place] # (Auto) 1.2 H Eos # (Auto) 0.2 Baso # (Auto) 0.1 Immature Gran # (Auto) 0.33 H Absolute Nucleated RBC 0.00 Immature Gran % 2 H Nucleated RBC % 0 Sodium 139 Potassium 3.4 D Chloride 97 L Carbon Dioxide 35.9 H Anion Gap 6 L BUN 12 Creatinine 0.6 Estim Creat Clear Calc 104.1 eGFR > 60 BUN/Creatinine Ratio 20 Glucose 101 Calculated Osmolality 277 Calcium 8.8 Corrected Calcium 9.1 Phosphorus 2.7 Magnesium 2.0 Total Bilirubin 0.7 AST 75 H ALT 224 H Alkaline Phosphatase 570 H Troponin I 0.094 H* 0.071 H* Total Protein 5.6 L Albumin 3.6 Globulin 2.0 L Albumin/Globulin Ratio 1.8 ABG Interpretation ABG results: 07/08/24 10:35 ABG pH 7.26 L ABG pCO2 39 ABG pO2 71 L ABG HCO3 17 L ABG O2 Saturation 93 ABG Base Excess -9 L Quality Measures Quality Measures VTE prophylaxis (SCDs) Advance care planning discussed with:: patient Assessment & Plan Assessment Current Active Medications: Generic Name Dose Route Start Last Admin Trade Name Freq PRN Reason Stop Dose Admin Acetaminophen 650 mg 07/06/24 09:34 Acetaminophen Supp 650 Mg Supp [place] 08/04/24 16:55 Q6HR PRN FEVER>101.5 Albuterol/Ipratropium 3 ml 07/05/24 22:00 07/05/24 23:45 Albuterol/Ipratropium (Duoneb) Rt Zamzam 3 Ml Nebu INH 08/04/24 21:59 3 ml Q2HR PRN Administration SHORTNESS OF BREATH OR WHEEZE Amiodarone HCl 200 mg 07/12/24 09:00 Amiodarone Hcl 200 Mg Tablet PO 08/11/24 08:59 QDAY JADE Finasteride 5 mg 07/08/24 21:00 07/11/24 20:27 Finasteride 5 Mg Tablet PO 08/07/24 20:59 5 mg HS JADE Administration Furosemide 40 mg 07/12/24 10:15 07/12/24 10:31 Furosemide Inj 10 Mg/Ml 4ml Vial IVP 08/11/24 10:14 40 mg BIDD JADE Administration Levofloxacin/Dextrose 750 mg in 150 mls @ 100 mls/hr 07/09/24 09:00 07/12/24 09:34 Levaquin Ivpb IV 07/16/24 08:59 100 mls/hr QDAY JADE Administration Amiodarone HCl/Dextrose 360 mg in 200 mls @ 16.667 mls/hr 07/12/24 07:05 07/12/24 07:38 Nexterone Ivpb IV 07/13/24 07:04 16.667 mls/hr .Q12H JADE Administration Melatonin 3 mg 07/05/24 21:10 07/05/24 21:48 Melatonin 3 Mg Tablet PO 08/05/24 20:59 3 mg HS PRN Administration insomnia Metoprolol Succinate 50 mg 07/07/24 12:15 07/12/24 06:23 Metoprolol Succinate Xl 25 Mg Tabcr PO 08/06/24 12:14 50 mg DAILY JADE Administration Nicotine 14 mg 07/05/24 16:45 07/12/24 09:34 Nicotine Patch 14 Mg/24 Hr Patch.Td24 TOP 08/04/24 16:44 14 mg QDAY JADE Administration Ondansetron HCl 4 mg 07/05/24 16:56 Ondansetron Inj 2 Mg/Ml Inj 2 Ml IV 08/04/24 16:55 Q6H PRN NAUSEA OR VOMITING Protocol Pantoprazole Sodium 40 mg 07/12/24 09:30 07/12/24 09:34 Pantoprazole Inj 40 Mg Vial IV 08/11/24 09:29 40 mg BID JADE Administration Sennosides 1 tab 07/05/24 16:56 Senna Tablet PO 08/04/24 16:55 QDAY PRN constipation Protocol Trazodone HCl 100 mg 07/05/24 21:00 07/11/24 20:26 Trazodone Hcl 50 Mg Tablet PO 08/04/24 20:59 100 mg HS JADE Administration Plan This 74-year-old male with past medical history significant for hypertension, CAD s/p PCI, 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 Chest x-ray showed prominent diffuse right lung pneumonia and isolated scattered nodular opacities in the left lung. EKG showed sinus tachycardia, RBBB with heart rate 129. # Pericardial effusion post pericardiocentesis # Likely secondary to gastric adenocarcinoma/metastatic malignancy ? Patient was found to have large pericardial effusion seen on CTA imaging. ? Patient is feeling a lot better and less short of breath. ? Repeat Echo showed re-accumulation of fluid in pericardial space ? Pericardiocentesis performed today by staff nurse midwife Dr. Spencer removed 800 cc and sent for analysis,07/09 ?Another pericardiocentesis was performed on 07/11 and removed 300 cc ?Pericardial fluid cytology showed adenocarcinoma Plan: ?GI specialist plam to perform another EGD given concern for adenocarcinoma of the stomach for biopsy of tissue ? Monitor patient for pain and shortness of breath ? Pericardial catheter left in and will remove once fluid<50 cc ? Pain management as needed #New Onset Atrial Fibrillation, RVR ? Patient had a rapid heart rate. EKG showed A Fib with Rvr HR in 140s. ? [id number] score 3 ?No anticoagulation given due to high risk of bleeding with underlying malignancy and GI bleed recently due to esophageal ulcer seen on EGD Plan: ? Can hold off on amiodarone drip during EGD ? Continuing another bag of amiodarone drip per protocol ? Keep Mag above 2 and K above 4 ? Monitor for chest pain and SOB # NSTEMI type II likely supply demand ischemia ?Troponin I 0.094 -->0.07 Plan: ? Troponin I downtrended ?Continue to monitor for signs of chest pain or shortness of breath # CAD post stents on Plavix # Orthostatic hypotension # History of hypertension # HFpEF EF 55% ?Patient admitted for GI bleed workup. Presenting with black tarry stool. GI specialist following the case. Cardiology team consulted for recurrent hypotension episodes and for anticoagulation management. ? Patient is not complaining of chest pain or shortness of breath. Troponin I was negative. ? Echo showed that There is a moderate circumferential pericardial effusion. There is TV respiration variation and RA collapse. Normal LV size and function. Estimated EF 55%. Mild RV dilation. Normal RV function. Severe RA dilation Mild AV sclerosis without stenosis. Trace TR. left pleural effusion present. ?EGD showed nonerosive gastritis and esophageal ulcers. ?Patient's urine output 4 L with negative balance of 3 L Plan: ? Started Lasix 40 IV twice daily recommended to continue and monitor strict BACILIO's, fluid restriction Daily weight ? Recommended to discontinue Plavix and stop antihypertensives ? Continue metoprolol succinate 50 mg once a day ? Continue Protonix 40 mg IV twice daily ? Treating underlying sepsis due to right-sided community-acquired pneumonia with antibiotics ? Monitor vitals closely ? Daily labs # Concern for gastric adenocarcinoma/malignancy seen on pericardial fluid cytology # Liver cirrhosis # History of hep C treated # Gastritis and per CT imaging duodenitis ?Patient denied any abdominal discomfort however lactic acid remain elevated ?CT abdomen revealed pericardial effusion with 30 mm, cirrhosis, mild ascites, gastritis active duodenitis and early small bowel ischemia. Cystitis. Plan ? GI to perform another EGD given concern for adenocarcinoma of the stomach ? Removed pericardial fluid today by performing pericardiocentesis ? Trend lactic acid ? Continue IV antibiotic therapy Other active problems: #Esophageal ulcers per EGD finding #Nonerosive gastritis #Sepsis likely secondary to #Right-sided community-acquired pneumonia # Lactic acidosis type B #Normocytic hypochromic anemia #Leukocytosis # Thrombocytopenia #Orthostatic hypotension #Acute anemia in the setting of #GI bleed-likely upper #Depression #BPH #History of CVA -- Rest of the management as per primary care team. Thank you very much for consulting cardiology team.Heart remains uncontrolled therefore and at the back of amiodarone drip was started. Continue diuresis with Lasix 40 IV twice daily. Pericardial fluid cytology showed adenocarcinoma family will be updated regarding the plan. Troponin I downtrending.GI to perform another EGD given concern for adenocarcinoma of the stomach Plan of care discussed with staff nurse midwife, Dr. Tj Eden MD, PGY 2
--- NOTE | 2024-07-12 16:02 | PD.RESPRO ---
Documentation for date of: 07/12/24 Subjective Subjective Interval history: 07/06: Overnight patient has not a rapid response for hypotension blood pressure was 84/62 and patient was having shortness of breath, patient received some breathing treatments and hemodynamic stable. This morning patient was seen and examined at bedside, patient was saturating well on room air. Patient endorses improvement in shortness of breath, denies chest pain, nausea, vomiting or abdominal pain. Patient states he feels much better and he can breathe comfortably. Denies any cough or wheezing. Patient requested that he would like to switch his azithromycin to something else because he believes that azithromycin is causing him the GI bleed. Patient has no other complaints 07/07: No overnight events. Pt is seen and examine at bedside. Pt endorses improvement on SOB form last night. Pt. is saturating on room air, pt denies chest pain, nausea, vomiting or abdominal pain. Pt states he was able to sleep last night because he was given him home trazadone, because melatonin does not help. Pt. has no complains. 07/08: review Dr. Waters note 07/09: review Dr. Waters note 07/10: No overnight events, patient is seen and examined at bedside. This morning patient endorses significant improvement in his shortness of breath, patient is saturating well on 1 L of oxygen. Patient states that his last bowel movement was 2 days ago and continues to notice dark stool. Patient also states that he has mild chest pain at the cath location. Patient denies any chest pain, nausea, vomiting or abdominal pain. Patient's lactic acid is downtrending to 2.5, AST and ALT is downtrending to 179 and 394. Alkaline phosphatase 531, and lactic dehydrogenase 386. Patient has no other complaints. Later in the afternoon patient was very tachycardic with a heart rate in the 130s to 140s stat EKG was ordered findings were consistent with A-fib with RVR. Repeat echo from this morning showed reaccumulation of pericardial fluid. Per Dr. Spencer's recommendation patient is started on amiodarone drip and plan to remove pericardial fluid. 07/11: No overnight events, patient seen and examined at bedside. Patient's is present, patient complains of some shortness of breath, but denies any chest pain. Currently patient is on 4 L of oxygen via nasal cannula. Patient also stated he noted to have swelling all over his body mostly prominent in the lower extremities. Patient denies any abdominal pain. Patient's MRI was not able to be done yesterday because patient was unable to lay flat for 30 minutes. This morning patient is continued on the amiodarone drip for the new finding of A-fib with RVR. Will attempt MRI today. Patient has no other complaints. 07/12: Overnight team reported patient heart rate was constantly above 140s to 160s throughout the night. Patient was given his metoprolol earlier than his normal dose time. Patient is seen and examined at bedside this morning he is resting comfortably and his shortness of breath is worse today. Patient denies any chest pains. Patient is notified about his suspected gastric adenocarcinoma per pathology report. EGD is pending for biopsy. Patient is also given digoxin x 1 for rate control. Patient has worsening pitting edema and started Lasix 40 twice daily. Second attempt of MRI was made last night which was unsuccessful due to incompatibility of pericardial cath and MRI. For now we will hold MRI. Patient has no other complaints. Exam Vital Signs Temp Pulse Resp BP Pulse Ox O2 Del Method O2 Flow Rate 97.6 F 127 H 21 H 102/68 98 Nasal Cannula 4 07/12/24 12:00 07/12/24 12:00 07/12/24 12:00 07/12/24 12:00 07/12/24 12:00 07/12/24 12:00 07/12/24 12:00 Narrative Exam GENERAL: A&Ox3 . Awake, Not in acute distress, patient is very short of breath NEURO: slitter and rewinder grossly intact, moves extremities x4 HEENT: Atraumatic, Normocephalic. mucous membranes moist. Eyes open, symmetrical, & clear HEART: Normal Heart Sounds, Pericardial catheter is seen LUNGS: Clear to auscultation ABDOMEN: soft, non-distended, non-tender, bowel sounds heard, no guarding or rebound tenderness SKIN: No Rash or ecchymoses EXTREMITIES: 2+ pitting edema, no tenderness, able to move all 4 extremities Objective Labs 07/12/24 05:10 07/12/24 05:10 Labs: Laboratory Results - last 24 hr 07/12/24 07/12/24 05:10 11:22 WBC 15.5 H RBC 4.22 L Hgb 12.7 L Hct 37.7 L MCV 89 MCH 30.1 MCHC 33.7 RDW Std Deviation 47.0 H Plt Count 202 Neut % (Auto) 81 H Lymph % (Auto) 7 L [place] % (Auto) 8 Eos % (Auto) 1 Baso % (Auto) 1 Neut # (Auto) 12.5 H Lymph # (Auto) 1.1 [place] # (Auto) 1.2 H Eos # (Auto) 0.2 Baso # (Auto) 0.1 Immature Gran # (Auto) 0.33 H Absolute Nucleated RBC 0.00 Immature Gran % 2 H Nucleated RBC % 0 Sodium 139 Potassium 3.4 D Chloride 97 L Carbon Dioxide 35.9 H Anion Gap 6 L BUN 12 Creatinine 0.6 Estim Creat Clear Calc 104.1 eGFR > 60 BUN/Creatinine Ratio 20 Glucose 101 Calculated Osmolality 277 Calcium 8.8 Corrected Calcium 9.1 Phosphorus 2.7 Magnesium 2.0 Total Bilirubin 0.7 AST 75 H ALT 224 H Alkaline Phosphatase 570 H Troponin I 0.094 H* 0.071 H* Total Protein 5.6 L Albumin 3.6 Globulin 2.0 L Albumin/Globulin Ratio 1.8 ABG Interpretation ABG results: 07/08/24 10:35 ABG pH 7.26 L ABG pCO2 39 ABG pO2 71 L ABG HCO3 17 L ABG O2 Saturation 93 ABG Base Excess -9 L Quality Measures Quality Measures VTE prophylaxis (SCDs) Advance care planning discussed with:: patient Assessment & Plan Assessment Current Active Medications: Generic Name Dose Route Start Last Admin Trade Name Freq PRN Reason Stop Dose Admin Acetaminophen 650 mg 07/06/24 09:34 Acetaminophen Supp 650 Mg Supp [place] 08/04/24 16:55 Q6HR PRN FEVER>101.5 Albuterol/Ipratropium 3 ml 07/05/24 22:00 07/05/24 23:45 Albuterol/Ipratropium (Duoneb) Rt Zamzam 3 Ml Nebu INH 08/04/24 21:59 3 ml Q2HR PRN Administration SHORTNESS OF BREATH OR WHEEZE Amiodarone HCl 200 mg 07/12/24 09:00 Amiodarone Hcl 200 Mg Tablet PO 08/11/24 08:59 QDAY JADE Finasteride 5 mg 07/08/24 21:00 07/11/24 20:27 Finasteride 5 Mg Tablet PO 08/07/24 20:59 5 mg HS JADE Administration Furosemide 40 mg 07/12/24 10:15 07/12/24 10:31 Furosemide Inj 10 Mg/Ml 4ml Vial IVP 08/11/24 10:14 40 mg BIDD JADE Administration Levofloxacin/Dextrose 750 mg in 150 mls @ 100 mls/hr 07/09/24 09:00 07/12/24 09:34 Levaquin Ivpb IV 07/16/24 08:59 100 mls/hr QDAY JADE Administration Amiodarone HCl/Dextrose 360 mg in 200 mls @ 16.667 mls/hr 07/12/24 07:05 07/12/24 07:38 Nexterone Ivpb IV 07/13/24 07:04 16.667 mls/hr .Q12H JADE Administration Melatonin 3 mg 07/05/24 21:10 07/05/24 21:48 Melatonin 3 Mg Tablet PO 08/05/24 20:59 3 mg HS PRN Administration insomnia Metoprolol Succinate 50 mg 07/07/24 12:15 07/12/24 06:23 Metoprolol Succinate Xl 25 Mg Tabcr PO 08/06/24 12:14 50 mg DAILY JADE Administration Nicotine 14 mg 07/05/24 16:45 07/12/24 09:34 Nicotine Patch 14 Mg/24 Hr Patch.Td24 TOP 08/04/24 16:44 14 mg QDAY JADE Administration Ondansetron HCl 4 mg 07/05/24 16:56 Ondansetron Inj 2 Mg/Ml Inj 2 Ml IV 08/04/24 16:55 Q6H PRN NAUSEA OR VOMITING Protocol Pantoprazole Sodium 40 mg 07/12/24 09:30 07/12/24 09:34 Pantoprazole Inj 40 Mg Vial IV 08/11/24 09:29 40 mg BID JADE Administration Sennosides 1 tab 07/05/24 16:56 Senna Tablet PO 08/04/24 16:55 QDAY PRN constipation Protocol Trazodone HCl 100 mg 07/05/24 21:00 07/11/24 20:26 Trazodone Hcl 50 Mg Tablet PO 08/04/24 20:59 100 mg HS JADE Administration Plan Mr. 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 Patient states that he has been having shortness of breath and cough with phlegm, runny nose, and chest congestion for the past 2 weeks and the primary care physician had had ordered an x-ray with findings consistent of pneumonia and he was prescribed azithromycin. # Malignant pericardial effusion s/p pericardiocentesis and drain placement. #Tamponade, resolved. #Orthostatic hypotension-resolved -Although patient has primary hypertension, when he gets up from lying position his blood pressure drops. -when Pt. was getting out of bed from laying position his BP drop to 84/58. Laying down blood pressure is 118/62. -Patient reports that his breathing is worse when he lays on his back. -CTA showed Pericardial effusion measuring up to 30 mm. -Bedside echo performed by Dr. Spencer showed significant pericardial effusion with tamponade, estimated volume 700 cc. -Pericardiocentesis was performed on 07/09 with 750 cc of brown-red fluid removal. -Repeat pericardiocentesis 07/11 removed 300 cc plan: -Hold blood pressure medications and BPH medications. -Continue monitoring pericardial drain output, will remove when output less than 50 cc/day. #Suspected metastatic adenocarcinoma #Diffuse gastric adenocarcinoma -Cytology report from pericardial effusions. Positive for malignancy poorly differentiated adenocarcinoma. Likely metastasis of the diffuse form of gastric adenocarcinoma plan: -Per pathology report recommendation endoscopy with biopsy scheduled for today #A-fib with RVR # A flutter with RVR -Patient is heart rate was in the 130s to 140s -EKG findings with consistent with A-fib with RVR Plan: -Amiodarone drip # Troponinemia -Morning troponin 0.094 -> 0.071 -Continue to monitor # Bilateral lower extremity edema #Fluid overload in the setting of CHF exacerbation ?Patient has 2+ pitting edema likely in the setting of fluid overload due to IV fluids given during hospitalization -Lasix 40 Mg IV x 1 twice daily #Sepsis 2/2 #Right-sided pneumonia. #Leukocytosis. #Lactic acidosis. -SIRS 3/4 - tachycardia, tachyapnea, leukocytosis. -Chest x-ray showed prominent diffuse right lung pneumonia and isolated scattered nodular opacities in the left lung. -lactic acid 3.1->4.4->3.4->4.2->6.1->3.2->2.8 -Rocephin 07/05-07/09; doxycycline 07/06-07/09 Plan: -Normal saline maintenance fluid. -started on levofloxacin 07/09- -Blood cultures preliminary negative. -Cocci - negative -Lactic acid trending down #Acute liver failure. #Hepatitis C. -AST and ALT remain uptrending over the last several days, last reading 390 and 490 respectively. Alk phos 496, total bilirubin 0.3. On admission LFTs were within normal limits. -lactic acid 3.1->4.4->3.4->4.2->6.1->3.2 -> 2.8 -US liver showed thickened gallbladder wall, consider HIDA scan or MRCP follow-up to exclude cholecystitis, multiple liver lesions which need additional diagnostic assessment. -Medication induced versus right heart failure and venous congestion in setting of tamponade. -Hepatitis panel was positive for hepatitis C. Plan: -Discontinue or hepatotoxic medications. -Continue IVF. -Continue to monitor labs. -GI is on board -MRI of liver-hold until patient is stable #Suspected bowel ischemia. #Symptomatic acute anemia. #GI bleed. -Patient reports 3 episodes of melena -Hemoglobin on admission was 10.9, Hct 32.8. patient's baseline is Hgb 14. -CTA of abdomen showed suspicious for early small bowel ischemia, clinical correlation advised, consider surgical consultation. -General Surgery was consulted, Dr. Danielson on board, clinically patient unlikely has bowel ischemia. Plan: -GI consulted- appreciate Dr. Malave's recommendation. -General Surgery consulted, Dr. Danielson on board. -IV Protonix 40mg BID. -PUD diet. -avoid chemical anticoagualtion. #Primary Hypertension. #CAD s/p PCI. -Hold patient's home medication: Metoprolol, amlodipine, benazepril, clopidogrel. -Continue metoprolol succinate, hold other home antihypertensives for now. #Depression. -Resume home trazodone and mirtazapine. #BPH. -Hold home tamsulosin due to orthostatic hypotension episodes. -resume home finasteride. #Nicotine dependence -Patient smokes approximately 10 cigarettes/day since the age of 17 -Counseled patient on smoking cessation -Nicotine patch ordered #History of CVA. -Patient has a history of CVA approximately 4 to 5 years ago with mild residual weakness in the left hand. [facility] Sepsis and GI bleed. DVT Prophylaxis: SCD QSHIFT. GI Prophylaxis: Pantoprozol-40 IV BID Diet: Cardiac or Diabetic Diet, carbohydrate consistent Code status: Full Assessment and plan discussed with my senior resident Dr. Dixon & attending physician Dr. Christiano Rodriguez ([id number])- Internal medicine resident Attending Provider Attestation/Addendum 74-year-old male with hepatitis C status post therapy, hypertension, hyperlipidemia with subsequent CAD status post stent placement and history of ischemic CVA with left hand residual deficits who presented to the ER with chief complaint of dark tarry stool found to have symptomatic anemia secondary to upper GI bleed and sepsis secondary to pneumonia. Currently, patient underwent CTA with findings of pericardial effusion with tamponade physiology and thus underwent pericardiocentesis with removal of 700 cc of fluid with improvement in blood pressure. Continue to monitor and patient continues to have catheter in place in the pericardial area. Studies for cytology. Appreciate cardiology input. Furthermore, patient also noted to have liver lesions and elevated transaminitis plan to pursue an MRI of the abdomen. Overnight, patient went into A-fib with RVR currently on amiodarone drip. Unable to anticoagulate given bleeding. Overnight, patient did go into A-fib with RVR on amiodarone and plan to give digoxin 0.25 mcg and continue metoprolol 50 mg twice daily. Discussed with pathologist Dr. Sanchez regarding cytology from pericardial effusion and states that cytology is still consistent with gastric adenocarcinoma. As a result, plan for repeat EGD. Updated patient, and [id number] at bedside. N.p.o. for EGD and appreciate cardiology input. I reviewed above note and agree with findings and plans. I have also personally examined the patient with medicine team and went over assessment and plan with medical team including internal combustion engine inspector and resident physician.
[2024-07-12 17:25] LABS: Troponin I 0.059 ng/mL (0.0-0.045)
--- NOTE | 2024-07-12 17:28 | ESPR_ITS ---
Documentation for date of: 07/12/24 Subjective Subjective Interval history: Patient reevaluated at the request of the internal medicine team Patient developed pericardial effusion requiring pericardiocentesis and the fluid is malignant with a diagnosis of adenocarcinoma of the GI tract origin Previous endoscopy has shown GE junction ulceration no biopsies were taken as patient was having bk GI bleeding in the form of melena Reendoscopy for biopsies that region to find the primary source of GI tract adenocarcinoma Exam Vital Signs Temp Pulse Resp BP Pulse Ox O2 Del Method O2 Flow Rate 97.8 F 104 H 19 136/78 H 96 Nasal Cannula 4 07/12/24 16:00 07/12/24 17:21 07/12/24 16:00 07/12/24 17:21 07/12/24 16:00 07/12/24 16:00 07/12/24 16:00 Constitutional Comments: Alert oriented Routine Respiratory Exam Comments: Normal to auscultation Routine Abdominal Exam Comments: Soft nontender Objective Labs 07/12/24 05:10 07/12/24 05:10 Labs: Laboratory Results - last 24 hr 07/12/24 07/12/24 07/12/24 05:10 11:22 16:00 WBC 15.5 H RBC 4.22 L Hgb 12.7 L Hct 37.7 L MCV 89 MCH 30.1 MCHC 33.7 RDW Std Deviation 47.0 H Plt Count 202 Neut % (Auto) 81 H Lymph % (Auto) 7 L [place] % (Auto) 8 Eos % (Auto) 1 Baso % (Auto) 1 Neut # (Auto) 12.5 H Lymph # (Auto) 1.1 [place] # (Auto) 1.2 H Eos # (Auto) 0.2 Baso # (Auto) 0.1 Immature Gran # (Auto) 0.33 H Absolute Nucleated RBC 0.00 Immature Gran % 2 H Nucleated RBC % 0 Sodium 139 Potassium 3.4 D Chloride 97 L Carbon Dioxide 35.9 H Anion Gap 6 L BUN 12 Creatinine 0.6 Estim Creat Clear Calc 104.1 eGFR > 60 BUN/Creatinine Ratio 20 Glucose 101 Calculated Osmolality 277 Calcium 8.8 Corrected Calcium 9.1 Phosphorus 2.7 Magnesium 2.0 Total Bilirubin 0.7 AST 75 H ALT 224 H Alkaline Phosphatase 570 H Troponin I 0.094 H* 0.071 H* 0.059 H* Total Protein 5.6 L Albumin 3.6 Globulin 2.0 L Albumin/Globulin Ratio 1.8 Impressions Impression: # Metastatic adenocarcinoma of GI tract origin Plan Fiberoptic upper endoscopy with biopsies Informed consent obtained Will proceed with the procedure ABG Interpretation ABG results: 07/08/24 10:35 ABG pH 7.26 L ABG pCO2 39 ABG pO2 71 L ABG HCO3 17 L ABG O2 Saturation 93 ABG Base Excess -9 L Assessment & Plan A&P Narrative # Occult GI bleeding in the form of melena #. FOBT positive # Acute posthemorrhagic anemia Plan Serial CBC IV Protonix Consent obtained for fiberoptic esophagogastroduodenoscopy with possible therapeutic intervention under intravenous moderate sedation possible biopsy scheduled for tomorrow Other medical problems include # Coronary artery status post PCI # Essential hypertension # COPD Thank you very much for the opportunity to participate in the care of this patient Time Spent With Patient Time: Total time spent is greater than 50% in coordination of care (as documented) at patient's floor/unit and/or counseling patient:
--- NOTE | 2024-07-12 20:17 | SUR.PHASEI ---
2016 To PACU awake and alert able to lift head off of pillow following simple commands continue to monitor pt vital signs and status.
--- NOTE | 2024-07-12 21:04 | SUR.PHASEI ---
2049 Transfer to room 270 in stable condition, no complaints no s/s of distress noted with upper and lower dentures given to .
[2024-07-12] MEDS: traZODone HCL 50 MG TABLET 100 MG PO (21:43)
[2024-07-12] MEDS: FINASTERIDE 5 MG TABLET PO (21:43)
[2024-07-12 22:04] LABS: HCV RNA, PCR <15 NOT DETECTED IU/mL
[2024-07-13] VITALS (13 sets, daily range): BP systolic 109–146; BP diastolic 68–86; PULSE 73–104; RESP 13–30; TEMP 36.1–36.9; O2SAT 92–95; BMI 21.9
[2024-07-13] MEDS: FUROSEMIDE INJ 10 MG/ML 4ML VIAL 40 MG IVP (05:50)
[2024-07-13 06:08] LABS: Basophils # (Auto) 0.1 Thou/mm3 (0.0-0.2); Basophils % (Auto) 1 % (0-2.5); Eosinophils # (Auto) 0.3 Thou/mm3 (0.0-0.5); Eosinophils % (Auto) 2 % (0-10); Hematocrit 37.3 % (41.0-53.0); Hemoglobin 12.2 g/dL (13.5-16.0); Immature Granulocytes % (Auto) 2 % (0-0); Immature Granulocytes Auto 0.25 Thou/mm3 (0.00-0.00); Lymphocytes # (Auto) 0.8 Thou/mm3 (1.0-4.8); Lymphocytes % (Auto) 5 % (10-50); Mean Corpuscular HGB Conc 32.7 g/dl (31.0-37.0); Mean Corpuscular Hemoglobin 29.5 pg (25.0-35.0); Mean Corpuscular Volume 90 fL (80-100); Monocytes # (Auto) 1.3 Thou/mm3 (0.0-0.8); Monocytes % (Auto) 8 % (0-12); Neutrophils # (Auto) 13.3 Thou/mm3 (1.8-7.7); Neutrophils % (Auto) 84 % (37-80); Nucleated Red Blood Cell % 0 /100 WBC (0); Platelet Count 184 Thou/mm3 (140-440); RDW Standard Deviation 48.3 fL (35.1-43.9); Red Blood Count 4.13 Miln/mm3 (4.50-5.90)
[2024-07-13 06:21] LABS: HCV RNA, PCR Log IU <1.18 NOT DETECTED Log IU/mL
[2024-07-13 07:18] LABS: Alanine Aminotransferase 174 U/L (10-49); Albumin, Serum 3.6 gm/dL (3.4-4.8); Albumin/Globulin Ratio 1.8 (1.2-2.2); Alkaline Phosphatase 578 U/L (46-116); Anion Gap 7 (7-16); Aspartate Amino Transferase 58 U/L (0-34); BUN/Creatinine Ratio 17 Ratio (12-20); Blood Urea Nitrogen 10 mg/dL (9-23); Calcium 9.1 mg/dL (8.3-10.6); Calcium (Corrected) 9.4 mg/dL (8.5-10.1); Carbon Dioxide 35.5 mMol/L (20.0-31.0); Chloride 95 mMol/L (98-107); Creatinine (Component) 0.6 mg/dL (0.6-1.3); Estimated Creatinine Clearance 104.1 mL/min (>60); Glucose 106 mg/dL (74-106); Osmolality,Calculated 272 (275-295); Potassium 3.4 mMol/L (3.4-5.1); Sodium 137 mMol/L (136-145); Total Protein 5.6 gm/dL (5.7-8.2); eGFR > 60 See Note
[2024-07-13] MEDS: AMIODARONE HCL 200 MG TABLET PO (09:25)
[2024-07-13] MEDS: PANTOPRAZOLE INJ 40 MG VIAL IV ×2 (09:26→20:21)
[2024-07-13] MEDS: NICOTINE PATCH 14 MG/24 HR PATCH.TD24 TOP (09:26)
[2024-07-13] MEDS: METOPROLOL SUCCINATE XL 25 MG TABCR 50 MG PO (09:26)
[2024-07-13] MEDS: LEVOFLOXACIN/D5W 750MG IVPB 750 MG/150 ML BAG 100 MG IV (09:27)
--- NOTE | 2024-07-13 09:54 | ESPR_ITS ---
<Statement entered by Vinicio Spencer MD - 07/15/24 12:56> The patient is doing better I removed only 50 cc of fluid in 48 hours appears to be a lot less may not require any pericardiotomy remainder. Clinically doing well diuresed well with still have some shortness of breath and swelling of the feet but appears to improved significantly I reviewed the findings and consultation report and follow-up note agree with the treatment plan recommendation as documented by Dr. 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 Patient also endorsed shortness of breath, cough with phlegm and runny nose with chest congestion from past 2 weeks. Patient was given azithromycin as outpatient for pneumonia seen on chest x-ray. He he also endorsed abdominal pain. Patient's reported that he has lost 14 pounds of weight with poor appetite. In the ED, patient's blood pressure was soft he was tachycardic and tachypneic. Initial labs revealed leukocytosis, normocytic anemia, mildly elevated ALP. Chest x-ray showed prominent diffuse right lung pneumonia and isolated scattered nodular opacities in the left lung. EKG showed sinus tachycardia, RBBB with heart rate 129. PMH: Hypertension, history of CVA CAD s/p PCI in 2019, COPD, depression PSH: PCI SH: Active tobacco smoker (smokes 10 cigarettes/day since the age of 17), occasionally drinks alcohol, denies illicit drugs use Cardiology team consulted due to recurrent hypotension, history of CAD post stents on Plavix and antihypertensives. Patient was seen and examined at the bedside. Patient is scheduled to get endoscopy per GI specialist. Primary team managing the patient with IV antibiotic therapy Rocephin and doxycycline. Continuing PPI therapy for GI bleed workup. Labs revealed hemoglobin stable at 11.3. Chemistry panel showed BUN 49 creatinine 1.0. Lactic acid uptrending at 4.0. Cocci IgM negative. Blood cultures pending. Recommended to stop Plavix and hold antihypertensive given soft blood pressure and sepsis. Given that patient has a history of PCI 4-5 years ago would benefit to stop Plavix. Continue treating infection given likely contributing factor for hypotension.F/u EGD results. Recent Echo from 2023 showed EF 67%a and nuclear scan was negative for any ischemia. 07/07/2024: Patient was seen and examined at the bedside. Patient's son was also present at the bedside. Patient reported that he was feeling loss of appetite and weight loss from last 4 months. Lactic acid down trended however remains elevated. Morning labs revealed leukocytosis, normocytic anemia. Chemistry panel showed mild acidosis with bicarb 19.4. Elevated ALP 383. Patient denied any abdominal pain. Recommended to continue IV antibiotic therapy for community-acquired pneumonia infection. Suggested to perform CTA abdomen to rule out mesenteric bowel ischemia. Recommended to discontinue fluids due to concern for fluid overload. No diuretic therapy recommended for now given lactic acidosis. Suggested to discontinue Plavix and antihypertensive. EGD showed esophageal ulcers at the GE junction, nonerosive gastritis, erythematous duodenopathy and GI specialist recommended to continue IV Protonix. Will likely follow on CTA abdomen results. All labs and orders were reviewed. 07/09/2024: Patient was seen and examined at the bedside. Patient underwent pericardiocentesis for pericardial effusion today performed by Dr. Spencer, under baster. Patient has been feeling a lot better since then. Vitals have been stable with mild tachycardia. Labs showed uptrending leukocytosis, stable hemoglobin. Chemistry panel showed mild hyponatremia. BUN 28. Lactic acid downtrending to 2.5. Elevated transaminases. Patient will be closely follow-up and pericardial catheter will be removed once fluid<50 cc. Continue IV Levaquin for treating infection. Will closely monitor for chest pain or shortness of breath. Continue metoprolol succinate 50 mg Once a day. repeated echocardiogram to evaluate post pericardiocentesis. All labs and orders were reviewed. 07/10/24: Patient was seen and examined at the bedside. Patient appears to be SOB and tachycardiac. Vitals shows tacycardia HR 140s EKG was consistent with A Fib with Rvr.Repeat Echo showed re-accumulation of fluid in pericardial space. Labs shows significant improvement in white count stable Hgb, Lactic acid was downtrending, Liver enzymes mildly improved.Echo showed There is a moderate circumferential pericardial effusion. We recommended to start amiodarone drip per protocol and will remove another 100 cc Pericardial fluid.Rest of the management remains same. 07/11/2024: Patient was seen and examined at the bedside. Patient appears to be mildly short of breath and was tachypneic with a respiratory rate 30. He seemed to be hypotensive with blood pressure 88/66. Saturating 96% on 6 L NC. Labs revealed leukocytosis with white count 14.1, hemoglobin 11.7. Chemistry panel unremarkable. BUN and creatinine stable. Liver functions downtrending. Pending MRI abdomen with/without contrast. Primary team gave Lasix 40 mg IV x 1. Removed 300 cc pericardial fluid today. Agreeable to give Lasix 40 x 1. Will switch amiodarone IV to p.o. 200 mg once a day from tomorrow. All labs and orders were reviewed. Close monitoring of vitals. 07/12/2024: Patient was seen and examined at the bedside. Patient had multiple episodes of rapid heart rate in night team was called.Vitals showed blood pressure 102/68, heart rate 127, tachypnea RR 21 and afebrile. He was saturating 98% on 4 L nasal cannula. Labs revealed white count 15.5, hemoglobin 12.7. Chemistry panel showed mild hypokalemia. Kidney function stable. Liver enzymes slightly improved. Troponin I downtrending. Pericardial fluid cytology showing adenocarcinoma. Recommended to start another bag o amiodarone drip for rate control. Electrolytes were repleted. Family will be updated regarding the plan. Primary team started Lasix 40 IV twice daily due to fluid overload state and patient showed diuresis output of 4 L with negative balance of 3 L. GI to perform another EGD given concern for adenocarcinoma of the stomach All labs and orders were reviewed. 07/13/2024: Patient was seen and examined at the bedside. Pericardial fluid 100 cc was removed from pericardial catheter. Will keep pericardial catheter for 1 more day and evaluate tomorrow morning if fluid remains less than 50 cc we will remove the catheter. Initial plan was to place pericardial balloon catheter however will assess the patient tomorrow morning. Heart rate remains controlled. Labs showed leukocytosis, hemoglobin 12.2. Chemistry panel showed potassium 3.4. Bicarb 35.5. Liver enzymes downtrending. Diamox and KCl 40 mEq given x 1. Diamox was given for contraction alkalosis. Reduced Lasix to 40 mg once a day. Continue current management. All labs and orders were reviewed. Exam Vital Signs Temp Pulse Resp BP Pulse Ox O2 Del Method O2 Flow Rate 98.0 F 98 20 123/78 94 L Nasal Cannula 2 07/13/24 08:00 07/13/24 09:26 07/13/24 08:00 07/13/24 09:26 07/13/24 08:00 07/13/24 08:00 07/13/24 08:00 Narrative Exam GENERAL: A&Ox3 . Awake, Not in acute distress, saturating well on 6 L NC. NEURO: brush maker grossly intact, moves extremities x4 HEENT: Atraumatic, Normocephalic. mucous membranes moist. Eyes open, symmetrical, & clear. Mild JVD HEART: Irregular rate and irregular rhythm. S1/S2. No murmurs rubs or gallops. Pericardial catheter seen. LUNGS: Clear to auscultation. Tachypneic. ABDOMEN: soft, non-distended, non-tender, bowel sounds heard, no guarding or rebound tenderness SKIN: No Rash or ecchymoses EXTREMITIES: No edema, tenderness, able to move all 4 extremities, pedal pulses palpated. Left upper extremity redness due to IV infiltration Psych: Appropriate mood and affect. Objective Labs 07/13/24 05:25 07/13/24 05:25 Labs: Laboratory Results - last 24 hr 07/09/24 07/12/24 07/12/24 16:21 11:22 16:00 WBC RBC Hgb Hct MCV MCH MCHC RDW Std Deviation Plt Count Neut % (Auto) Lymph % (Auto) [place] % (Auto) Eos % (Auto) Baso % (Auto) Neut # (Auto) Lymph # (Auto) [place] # (Auto) Eos # (Auto) Baso # (Auto) Immature Gran # (Auto) Absolute Nucleated RBC Immature Gran % Nucleated RBC % Sodium Potassium Chloride Carbon Dioxide Anion Gap BUN Creatinine Estim Creat Clear Calc eGFR BUN/Creatinine Ratio Glucose Calculated Osmolality Calcium Corrected Calcium Phosphorus Magnesium AST ALT Alkaline Phosphatase Troponin I 0.071 H* 0.059 H* Total Protein Albumin Globulin Albumin/Globulin Ratio HCV RNA Quant (PCR) <15 NOT DETECTED HCV RNA (PCR) IU log10 <1.18 NOT DETECTED 07/12/24 07/13/24 22:42 05:25 WBC 16.0 H RBC 4.13 L Hgb 12.2 L Hct 37.3 L MCV 90 MCH 29.5 MCHC 32.7 RDW Std Deviation 48.3 H Plt Count 184 Neut % (Auto) 84 H Lymph % (Auto) 5 L [place] % (Auto) 8 Eos % (Auto) 2 Baso % (Auto) 1 Neut # (Auto) 13.3 H Lymph # (Auto) 0.8 L [place] # (Auto) 1.3 H Eos # (Auto) 0.3 Baso # (Auto) 0.1 Immature Gran # (Auto) 0.25 H Absolute Nucleated RBC 0.00 Immature Gran % 2 H Nucleated RBC % 0 Sodium 137 Potassium 3.4 Chloride 95 L Carbon Dioxide 35.5 H Anion Gap 7 BUN 10 Creatinine 0.6 Estim Creat Clear Calc 104.1 eGFR > 60 BUN/Creatinine Ratio 17 Glucose 106 Calculated Osmolality 272 L Calcium 9.1 Corrected Calcium 9.4 Phosphorus 3.0 Magnesium 2.0 AST 58 H ALT 174 H Alkaline Phosphatase 578 H Troponin I 0.060 H* Total Protein 5.6 L Albumin 3.6 Globulin 2.0 L Albumin/Globulin Ratio 1.8 HCV RNA Quant (PCR) HCV RNA (PCR) IU log10 ABG Interpretation ABG results: 07/08/24 10:35 ABG pH 7.26 L ABG pCO2 39 ABG pO2 71 L ABG HCO3 17 L ABG O2 Saturation 93 ABG Base Excess -9 L Quality Measures Quality Measures VTE prophylaxis (SCDs) Advance care planning discussed with:: patient Assessment & Plan Assessment Current Active Medications: Generic Name Dose Route Start Last Admin Trade Name Freq PRN Reason Stop Dose Admin Acetaminophen 650 mg 07/06/24 09:34 Acetaminophen Supp 650 Mg Supp NC 08/04/24 16:55 Q6HR PRN FEVER>101.5 Albuterol/Ipratropium 3 ml 07/05/24 22:00 07/05/24 23:45 Albuterol/Ipratropium (Duoneb) Rt Zamzam 3 Ml Nebu INH 08/04/24 21:59 3 ml Q2HR PRN Administration SHORTNESS OF BREATH OR WHEEZE Amiodarone HCl 200 mg 07/12/24 09:00 07/13/24 09:25 Amiodarone Hcl 200 Mg Tablet PO 08/11/24 08:59 200 mg QDAY JADE Administration Finasteride 5 mg 07/08/24 21:00 07/12/24 21:43 Finasteride 5 Mg Tablet PO 08/07/24 20:59 5 mg HS JADE Administration Furosemide 40 mg 07/12/24 10:15 07/13/24 05:50 Furosemide Inj 10 Mg/Ml 4ml Vial IVP 08/11/24 10:14 40 mg BIDD JADE Administration Levofloxacin/Dextrose 750 mg in 150 mls @ 100 mls/hr 07/09/24 09:00 07/13/24 09:27 Levaquin Ivpb IV 07/16/24 08:59 100 mls/hr QDAY JADE Administration Melatonin 3 mg 07/05/24 21:10 07/05/24 21:48 Melatonin 3 Mg Tablet PO 08/05/24 20:59 3 mg HS PRN Administration insomnia Metoprolol Succinate 50 mg 07/07/24 12:15 07/13/24 09:26 Metoprolol Succinate Xl 25 Mg Tabcr PO 08/06/24 12:14 50 mg DAILY JADE Administration Nicotine 14 mg 07/05/24 16:45 07/13/24 09:26 Nicotine Patch 14 Mg/24 Hr Patch.Td24 TOP 08/04/24 16:44 14 mg QDAY JADE Administration Ondansetron HCl 4 mg 07/05/24 16:56 Ondansetron Inj 2 Mg/Ml Inj 2 Ml IV 08/04/24 16:55 Q6H PRN NAUSEA OR VOMITING Protocol Pantoprazole Sodium 40 mg 07/12/24 09:30 07/13/24 09:26 Pantoprazole Inj 40 Mg Vial IV 08/11/24 09:29 40 mg BID JADE Administration Sennosides 1 tab 07/05/24 16:56 Senna Tablet PO 08/04/24 16:55 QDAY PRN constipation Protocol Trazodone HCl 100 mg 07/05/24 21:00 07/12/24 21:43 Trazodone Hcl 50 Mg Tablet PO 08/04/24 20:59 100 mg HS JADE Administration Plan This 74-year-old male with past medical history significant for hypertension, CAD s/p PCI, 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 Chest x-ray showed prominent diffuse right lung pneumonia and isolated scattered nodular opacities in the left lung. EKG showed sinus tachycardia, RBBB with heart rate 129. # Pericardial effusion post pericardiocentesis # Likely secondary to gastric adenocarcinoma/metastatic malignancy ? Patient was found to have large pericardial effusion seen on CTA imaging. ? Patient is feeling a lot better and less short of breath. ? Repeat Echo showed re-accumulation of fluid in pericardial space ? Pericardiocentesis performed today by under baster Dr. 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 Biopsy result awaiting. Oncology team has been consulted for further evaluation. Plan: ? Removed 100 cc pericardial fluid from pericardial catheter plan to remove catheter tomorrow morning if fluid remains less than 50 cc ? Monitor patient for pain and shortness of breath ? Pericardial catheter left in and will remove once fluid<50 cc ? Pain management as needed # Contraction alkalosis likely due to diuretic ? Bicarb 35.5 Plan: ? Diamox given x 1 ? Dose of Lasix reduced to 40 mg once a day #New Onset Atrial Fibrillation, RVR ? Patient had a rapid heart rate. EKG showed A Fib with Rvr HR in 140s. ? [id number] score 3 ?No anticoagulation given due to high risk of bleeding with underlying malignancy and GI bleed recently due to esophageal ulcer seen on EGD ?Amio drip was completed. Plan: ?Continue amiodarone 200 mg p.o. daily ? Keep Mag above 2 and K above 4 ? Monitor for chest pain and SOB # NSTEMI type II likely supply demand ischemia ?Troponin I 0.094 -->0.07 Plan: ? Troponin I downtrended ?Continue to monitor for signs of chest pain or shortness of breath # CAD post stents on Plavix # Orthostatic hypotension # History of hypertension # HFpEF EF 55% ?Patient admitted for GI bleed workup. Presenting with black tarry stool. GI specialist following the case. Cardiology team consulted for recurrent hypotension episodes and for anticoagulation management. ? Patient is not complaining of chest pain or shortness of breath. Troponin I was negative. ? Echo showed that There is a moderate circumferential pericardial effusion. There is TV respiration variation and RA collapse. Normal LV size and function. Estimated EF 55%. Mild RV dilation. Normal RV function. Severe RA dilation Mild AV sclerosis without stenosis. Trace TR. left pleural effusion present. ?EGD showed nonerosive gastritis and esophageal ulcers. ?Patient's urine output 4 L with negative balance of 3 L Plan: ? Reduced dose of Lasix to 40 mg once a day and monitor strict BACILIO's, fluid restriction Daily weight ? Diamox was given for contraction close is an KCl repleted 40 mEq x 1 ? Recommended to discontinue Plavix and stop antihypertensives ? Continue metoprolol succinate 50 mg once a day and amiodarone 200 mg once a day ? Continue Protonix 40 mg IV twice daily ? Treating underlying sepsis due to right-sided community-acquired pneumonia with antibiotics ? Monitor vitals closely ? 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 Cystitis. Plan ? GI to perform another EGD given concern for adenocarcinoma of the stomach ? Removed pericardial fluid today by performing pericardiocentesis ? Trend lactic acid ? Continue IV antibiotic therapy Other active problems: #Esophageal ulcers per EGD finding #Nonerosive gastritis #Sepsis likely secondary to #Right-sided community-acquired pneumonia # Lactic acidosis type B #Normocytic hypochromic anemia #Leukocytosis # Thrombocytopenia #Orthostatic hypotension #Acute anemia in the setting of #GI bleed-likely upper #Depression #BPH #History of CVA -- Rest of the management as per primary care team. Thank you very much for consulting cardiology team.switch to p.o. amiodarone 200 mg once a day, pericardial fluid 100 cc removed today. Reduced dose of Lasix to 40 mg once a day, KCl and Diamox given x 1. Oncology has been consulted given EGD showed esophageal adenocarcinoma. Will likely remove pericardial catheter tomorrow morning if fluid remains less than 50 cc. Plan of care discussed with under baster, Dr. Tj Eden MD, PGY 2
--- NOTE | 2024-07-13 10:14 | PC.SS ---
Update: Patient received endoscopy. Currently on 1L oxygen. Dr. Malave consulting.
--- NOTE | 2024-07-13 11:00 | PC.NURSE ---
o2 sat on room air at rest 87%.
[2024-07-13] MEDS: POTASSIUM CHLORIDE 10% 20 MEQ/15 ML UDC 40 MEQ PO (12:07)
[2024-07-13] MEDS: ACETAzolaMIDE SOD 500 MG in SODIUM CHLORIDE 0.9% (P) 50 ML 100 MG IV (12:07)
[2024-07-13] MEDS: ACETAMINOPHEN 325 MG TABLET 650 MG PO (13:47)
--- NOTE | 2024-07-13 13:51 | PD.RESPRO ---
Documentation for date of: 07/13/24 Subjective Subjective Interval history: Patient was seen and examined at bedside. No acute overnight events. He reports his breathing is fine and he does not have any chest pain. He is planned for pericardial effusion drained today by cardiology. He underwent EGD yesterday and biopsy was taken from ulcerated mass, per GI it is likely a gastric adenocarcinoma. Dr. Guevara oncology was consulted. Will wait for pathology report from biopsy. Will continue current management and monitor patient. Exam Vital Signs Temp Pulse Resp BP Pulse Ox O2 Del Method O2 Flow Rate 97.9 F 101 H 13 118/69 93 L Nasal Cannula 2 07/13/24 12:00 07/13/24 12:00 07/13/24 12:00 07/13/24 12:00 07/13/24 12:00 07/13/24 12:00 07/13/24 12:00 Narrative Exam Gen: Well-developed and well-nourished. HEENT: NCAT, PERRLA, EOMI, MMM, anicteric conjunctivae. CVS: normal S1 and S2. Regular tachycardia. No M/R/G. Pericardial drain in place. Resp: Significantly decreased breath sounds B/L. No rhonchi, rales, crackles or wheezing. Abd: soft, non-tender, non-distended. BS+ in all 4 quadrants. MSK: Good ROM in BUE & BLE. No rash. 2+ edema BLE. Neuro: CN II-XII grossly intact. Strength 5/5 in BUE & BLE. Alert and oriented x3. Psych: appropriate mood and affect. Objective Labs 07/13/24 05:25 07/13/24 05:25 Labs: Laboratory Results - last 24 hr 07/09/24 07/12/24 07/12/24 16:21 16:00 22:42 WBC RBC Hgb Hct MCV MCH MCHC RDW Std Deviation Plt Count Neut % (Auto) Lymph % (Auto) [place] % (Auto) Eos % (Auto) Baso % (Auto) Neut # (Auto) Lymph # (Auto) [place] # (Auto) Eos # (Auto) Baso # (Auto) Immature Gran # (Auto) Absolute Nucleated RBC Immature Gran % Nucleated RBC % Sodium Potassium Chloride Carbon Dioxide Anion Gap BUN Creatinine Estim Creat Clear Calc eGFR BUN/Creatinine Ratio Glucose Calculated Osmolality Calcium Corrected Calcium Phosphorus Magnesium AST ALT Alkaline Phosphatase Troponin I 0.059 H* 0.060 H* Total Protein Albumin Globulin Albumin/Globulin Ratio HCV RNA Quant (PCR) <15 NOT DETECTED HCV RNA (PCR) IU log10 <1.18 NOT DETECTED 07/13/24 05:25 WBC 16.0 H RBC 4.13 L Hgb 12.2 L Hct 37.3 L MCV 90 MCH 29.5 MCHC 32.7 RDW Std Deviation 48.3 H Plt Count 184 Neut % (Auto) 84 H Lymph % (Auto) 5 L [place] % (Auto) 8 Eos % (Auto) 2 Baso % (Auto) 1 Neut # (Auto) 13.3 H Lymph # (Auto) 0.8 L [place] # (Auto) 1.3 H Eos # (Auto) 0.3 Baso # (Auto) 0.1 Immature Gran # (Auto) 0.25 H Absolute Nucleated RBC 0.00 Immature Gran % 2 H Nucleated RBC % 0 Sodium 137 Potassium 3.4 Chloride 95 L Carbon Dioxide 35.5 H Anion Gap 7 BUN 10 Creatinine 0.6 Estim Creat Clear Calc 104.1 eGFR > 60 BUN/Creatinine Ratio 17 Glucose 106 Calculated Osmolality 272 L Calcium 9.1 Corrected Calcium 9.4 Phosphorus 3.0 Magnesium 2.0 AST 58 H ALT 174 H Alkaline Phosphatase 578 H Troponin I Total Protein 5.6 L Albumin 3.6 Globulin 2.0 L Albumin/Globulin Ratio 1.8 HCV RNA Quant (PCR) HCV RNA (PCR) IU log10 ABG Interpretation ABG results: 07/08/24 10:35 ABG pH 7.26 L ABG pCO2 39 ABG pO2 71 L ABG HCO3 17 L ABG O2 Saturation 93 ABG Base Excess -9 L Quality Measures Quality Measures VTE prophylaxis (SCDs) Advance care planning discussed with:: patient Assessment & Plan Assessment Current Active Medications: Generic Name Dose Route Start Last Admin Trade Name Freq PRN Reason Stop Dose Admin Acetaminophen 650 mg 07/06/24 09:34 Acetaminophen Supp 650 Mg Supp NV 08/04/24 16:55 Q6HR PRN FEVER>101.5 Acetaminophen 650 mg 07/13/24 13:33 07/13/24 13:47 Acetaminophen 325 Mg Tablet PO 08/12/24 13:32 650 mg Q6HR PRN Administration PAIN Albuterol/Ipratropium 3 ml 07/05/24 22:00 07/05/24 23:45 Albuterol/Ipratropium (Duoneb) Rt Zamzam 3 Ml Nebu INH 08/04/24 21:59 3 ml Q2HR PRN Administration SHORTNESS OF BREATH OR WHEEZE Amiodarone HCl 200 mg 07/12/24 09:00 07/13/24 09:25 Amiodarone Hcl 200 Mg Tablet PO 08/11/24 08:59 200 mg QDAY JADE Administration Finasteride 5 mg 07/08/24 21:00 07/12/24 21:43 Finasteride 5 Mg Tablet PO 08/07/24 20:59 5 mg HS JADE Administration Furosemide 40 mg 07/14/24 09:00 Furosemide Inj 10 Mg/Ml 4ml Vial IVP 08/13/24 08:59 QDAY JADE Levofloxacin/Dextrose 750 mg in 150 mls @ 100 mls/hr 07/09/24 09:00 07/13/24 09:27 Levaquin Ivpb IV 07/16/24 08:59 100 mls/hr QDAY JADE Administration Melatonin 3 mg 07/05/24 21:10 07/05/24 21:48 Melatonin 3 Mg Tablet PO 08/05/24 20:59 3 mg HS PRN Administration insomnia Metoprolol Succinate 50 mg 07/07/24 12:15 07/13/24 09:26 Metoprolol Succinate Xl 25 Mg Tabcr PO 08/06/24 12:14 50 mg DAILY JADE Administration Nicotine 14 mg 07/05/24 16:45 07/13/24 09:26 Nicotine Patch 14 Mg/24 Hr Patch.Td24 TOP 08/04/24 16:44 14 mg QDAY JADE Administration Ondansetron HCl 4 mg 07/05/24 16:56 Ondansetron Inj 2 Mg/Ml Inj 2 Ml IV 08/04/24 16:55 Q6H PRN NAUSEA OR VOMITING Protocol Pantoprazole Sodium 40 mg 07/12/24 09:30 07/13/24 09:26 Pantoprazole Inj 40 Mg Vial IV 08/11/24 09:29 40 mg BID JADE Administration Sennosides 1 tab 07/05/24 16:56 Senna Tablet PO 08/04/24 16:55 QDAY PRN constipation Protocol Trazodone HCl 100 mg 07/05/24 21:00 07/12/24 21:43 Trazodone Hcl 50 Mg Tablet PO 08/04/24 20:59 100 mg HS JADE Administration Plan Mr. 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 Patient states that he has been having shortness of breath and cough with phlegm, runny nose, and chest congestion for the past 2 weeks and the primary care physician had had ordered an x-ray with findings consistent of pneumonia and he was prescribed azithromycin. #Malignant pericardial effusion s/p pericardiocentesis and drain placement. #Tamponade, resolved. #Orthostatic hypotension-resolved. -Although patient has primary hypertension, when he gets up from lying position his blood pressure drops. -when Pt. was getting out of bed from laying position his BP drop to 84/58. Laying down blood pressure is 118/62. -Patient reports that his breathing is worse when he lays on his back. -CTA showed Pericardial effusion measuring up to 30 mm. -Bedside echo performed by Dr. Spencer showed significant pericardial effusion with tamponade, estimated volume 700 cc. -Pericardiocentesis was performed on 07/09 with 750 cc of brown-red fluid removal. -Repeat pericardiocentesis 07/11 removed 300 cc. Plan: -Hold blood pressure medications and BPH medications. -Continue monitoring pericardial drain output, will remove when output less than 50 cc/day. 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 -Cytology report from pericardial effusions. Positive for malignancy poorly differentiated adenocarcinoma. Likely metastasis of the diffuse form of gastric adenocarcinoma. plan: -endoscopy done, pending biopsy results. -oncology consulted. #A-fib with RVR. #A-flutter with RVR. -Patient is heart rate was in the 130s to 140s. -EKG findings with consistent with A-fib with RVR. Plan: -Amiodarone drip. #Troponinemia -Morning troponin 0.094 -> 0.071. -Continue to monitor. # Bilateral lower extremity edema #Fluid overload in the setting of CHF exacerbation ?Patient has 2+ pitting edema likely in the setting of fluid overload due to IV fluids given during hospitalization. -Lasix 40 Mg IV x 1 twice daily. #Sepsis 2/2 #Right-sided pneumonia. #Leukocytosis. #Lactic acidosis. -SIRS 3/4 - tachycardia, tachyapnea, leukocytosis. -Chest x-ray showed prominent diffuse right lung pneumonia and isolated scattered nodular opacities in the left lung. -lactic acid 3.1->4.4->3.4->4.2->6.1->3.2->2.8. -Rocephin 07/05-07/09; doxycycline 07/06-07/09. Plan: -Normal saline maintenance fluid. -started on levofloxacin 07/09- -Blood cultures preliminary negative. -Cocci - negative. -Lactic acid trending down. #Multiple liver lesions. #Hepatitis C. -AST and ALT remain uptrending over the last several days, last reading 390 and 490 respectively. Alk phos 496, total bilirubin 0.3. On admission LFTs were within normal limits. -lactic acid 3.1->4.4->3.4->4.2->6.1->3.2 -> 2.8. -US liver showed thickened gallbladder wall, consider HIDA scan or MRCP follow-up to exclude cholecystitis, multiple liver lesions which need additional diagnostic assessment. -Medication induced versus right heart failure and venous congestion in setting of tamponade. -Hepatitis panel was positive for hepatitis C. Plan: -Discontinue or hepatotoxic medications. -Continue IVF. -Continue to monitor labs. -GI is on board. -MRI of liver-hold until patient is stable. #Suspected bowel ischemia. #Symptomatic acute anemia. #GI bleed. -Patient reports 3 episodes of melena -Hemoglobin on admission was 10.9, Hct 32.8. patient's baseline is Hgb 14. -CTA of abdomen showed suspicious for early small bowel ischemia, clinical correlation advised, consider surgical consultation. -General Surgery was consulted, Dr. Danielson on board, clinically patient unlikely has bowel ischemia. Plan: -GI consulted- appreciate Dr. Malave's recommendation. -General Surgery consulted, Dr. Danielson on board. -IV Protonix 40mg BID. -PUD diet. -avoid chemical anticoagualtion. #Primary Hypertension. #CAD s/p PCI. -Hold patient's home medication: Metoprolol, amlodipine, benazepril, clopidogrel. -Continue metoprolol succinate, hold other home antihypertensives for now. #Depression. -Resume home trazodone and mirtazapine. #BPH. -Hold home tamsulosin due to orthostatic hypotension episodes. -resume home finasteride. #Nicotine dependence -Patient smokes approximately 10 cigarettes/day since the age of 17. -Counseled patient on smoking cessation. -Nicotine patch ordered. #History of CVA. -Patient has a history of CVA approximately 4 to 5 years ago with mild residual weakness in the left hand. Disposition: [facility] for management of Sepsis and GI bleed. DVT Prophylaxis: SCD QSHIFT. GI Prophylaxis: Pantoprozol-40 IV BID. Diet: Cardiac or Diabetic Diet, carbohydrate consistent. Code status: Full Plan of care discussed with attending Dr. Ngo. Ilir Dixon MD, PGY 2. Disclaimer: This note was dictated by speech recognition. Minor errors in ground crew linesman may be present due to voice recognition software. Attending Provider Attestation/Addendum Rafaela Masters DO, attest that I was physically present for the leyva portions of the service and evaluated the patient with the resident and I reviewed and discussed the case with the resident and agree with the resident's findings and plans of care as documented above Patient seen and evaluated this AM. Family is at bedside. Pending path of biopsies obtained from EGD. Patient states he is feeling better. He has trace b/l LE edema. Pericardial drain remains in place. 100cc of fluid removed today. Given finding of mass and signet cells found in pericardial fluid, contacted Rad/Onc to provide further recommendations. Will continue with current management and f/u with cardio and oncology recommendations.
[2024-07-13 14:52] LABS: Bilirubin,Total 0.8 mg/dL (0.3-1.2)
--- NOTE | 2024-07-13 15:19 | PD.ONCCONS ---
HPI Data of Consult Consult date: 07/13/24 Requesting Physician: Rafaela Ngo DO Primary Care Provider: Phuc Sotelo MD Consult Narrative Reason for consult: GI malignancy with pericardial mets. History of present illness: 74-year-old gentleman with history of coronary artery disease admitted with GI bleeding and gastritis. 07/07/2024 CT scan of the chest abdomen pelvis showed large pericardial effusion up to 30 mm with tamponade suspicions. There was also thickening of the small bowel loops suspicious for possible ischemic bowel along with cirrhosis of the liver and ascites.. Pericardiocentesis with drain placement was performed 07/09/2024 with pericardial fluid positive for malignancy poorly differentiated adenocarcinoma. According to comment by pathologist Dr. Laura yeager primary pathology the tumor made up majority of cells in the sample and predominantly individual cells with various staining favoring diffuse form of gastric adenocarcinoma. Endoscopy performed by Dr. 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 According to Dr. Malave's impression was most likely adeno CA the GE junction extending towards the cardiac in the fundic portion of the stomach also seen in retroflexion. Mass was circumferential and ulcerated as a cause of previous GI bleed. Patient has lost 14 pounds in the last few weeks but is still able to swallow somewhat. Patient now referred for oncological consultation. cc:: cc: Rafaela Ngo DO Past Medical History Surgical History OTHER SURGICAL HX: History of back surgery clot removed from neck Social History SOCIAL: Long history of smoking Past Medical History Comments PMH COMMENT: Hypertension CVA coronary artery disease COPD depression Meds Home Medications and Allergies Home Medications ?Medication ?Instructions ?Recorded ?Confirmed ?Type Trazodone * (DESYREL *) 100 mg PO HS #0 tabs 09/30/15 07/06/24 History benazepril 40 mg tablet (Lotensin) 40 mg PO QDAY #0 tabs 09/30/15 07/06/24 History citalopram 40 mg tablet (Celexa) 40 mg PO QDAY #0 tabs 09/30/15 11/14/19 History clopidogrel 75 mg tablet (Plavix) 75 mg PO QDAY #0 tabs 09/30/15 07/06/24 History famotidine 20 mg tablet (Pepcid) 20 mg PO QAM #0 tabs 09/30/15 07/06/24 History amlodipine 10 mg tablet 10 mg PO HS 07/06/24 07/06/24 History finasteride 5 mg tablet 5 mg PO HS 07/06/24 07/06/24 History metoprolol succinate 50 mg 50 mg PO DAILY 07/06/24 07/06/24 History tablet,extended release 24 hr mirtazapine 15 mg tablet 15 mg PO HS 07/06/24 07/06/24 History rosuvastatin 40 mg tablet 40 mg PO HS 07/06/24 07/06/24 History tamsulosin 0.4 mg capsule 0.4 mg PO QDAY 07/06/24 07/06/24 History Allergies Allergy/AdvReac Type Severity Reaction Status Date / Time No Known Allergies Allergy Verified 07/12/24 20:13 Exam Vital Signs Temp Pulse Resp BP Pulse Ox O2 Del Method O2 Flow Rate 97.9 F 101 H 13 118/69 93 L Nasal Cannula 2 07/13/24 12:00 07/13/24 12:00 07/13/24 12:00 07/13/24 12:00 07/13/24 12:00 07/13/24 12:00 07/13/24 12:00 Narrative Exam Lites comfortably answers question well in no acute distress Results Labs 07/13/24 05:25 07/13/24 05:25 Labs: Short CBC 07/13/24 Range/Units 05:25 WBC 16.0 H (3.8-10.6) Thou/mm3 Hgb 12.2 L (13.5-16.0) g/dL Hct 37.3 L (41.0-53.0) % Plt Count 184 (140-440) Thou/mm3 BMP 07/13/24 05:25 Sodium 137 Potassium 3.4 Chloride 95 L Carbon Dioxide 35.5 H BUN 10 Creatinine 0.6 Glucose 106 Calcium 9.1 Cardiac Enzymes 07/12/24 07/12/24 Range/Units 16:00 22:42 Troponin I 0.059 H* 0.060 H* (0.0-0.045) ng/mL Liver Function 07/13/24 Range/Units 05:25 Total Bilirubin 0.8 (0.3-1.2) mg/dL AST 58 H (0-34) U/L ALT 174 H (10-49) U/L Alkaline Phosphatase 578 H (46-116) U/L Albumin 3.6 (3.4-4.8) gm/dL ABG Interpretation ABG results: 07/08/24 10:35 ABG pH 7.26 L ABG pCO2 39 ABG pO2 71 L ABG HCO3 17 L ABG O2 Saturation 93 ABG Base Excess -9 L Assessment and Plan Additional Assessment & Plan Additional Plan: 1. 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 Status post pericardiocentesis to alleviate tamponade problem 2.Endoscopy suggests adenocarcinoma extending from the GE region towards the cardiac and the fundic portion of the stomach. Biopsy results pending. Additional imaging studies also pending. 3. Significant weight loss with possible need for artificial feeding support. Dietary following patient 4. Spoke with family regarding checking for immunotherapy and targeted therapy molecular markers along with HER2/giovanni to provide additional tools that may be employed in this obviously serious malignancy case. 5. Will follow. Thank you for allowing me to evaluate this case.
--- NOTE | 2024-07-13 15:49 | PC.SS ---
[employer]MENT[employer]IL INST[employer]ER informed bedside nurse of request for room air evaluation to determine if patient will require home oxygen upon discharge.
--- NOTE | 2024-07-13 17:55 | PC.NURSE ---
and drained 100 ml from pericardial cath.pt.tolerated procedure well.
--- NOTE | 2024-07-13 20:06 | PD.IMPROG ---
Documentation for date of: 07/13/24 Subjective Subjective Interval history: Upper endoscopy shows a mass at the GE junction Biopsies pending on a stat basis Most likely the primary adenocarcinoma of the GE junction Final pathology report pending Patient is unaware of the diagnosis at the moment Exam Vital Signs Temp Pulse Resp BP Pulse Ox O2 Del Method O2 Flow Rate 98.4 F 94 18 144/76 H 95 Nasal Cannula 1 07/13/24 16:00 07/13/24 18:05 07/13/24 18:05 07/13/24 16:00 07/13/24 18:05 07/13/24 16:00 07/13/24 18:05 Objective Labs 07/13/24 05:25 07/13/24 05:25 Labs: Laboratory Results - last 24 hr 07/09/24 07/12/24 07/13/24 16:21 22:42 05:25 WBC 16.0 H RBC 4.13 L Hgb 12.2 L Hct 37.3 L MCV 90 MCH 29.5 MCHC 32.7 RDW Std Deviation 48.3 H Plt Count 184 Neut % (Auto) 84 H Lymph % (Auto) [address] [facility] % (Auto) 8 Eos % (Auto) 2 Baso % (Auto) 1 Neut # (Auto) 13.3 H Lymph # (Auto) 0.[address] [facility] # (Auto) 1.3 H Eos # (Auto) 0.3 Baso # (Auto) 0.1 Immature Gran # (Auto) 0.25 H Absolute Nucleated RBC 0.00 Immature Gran % 2 H Nucleated RBC % 0 Sodium 137 Potassium 3.4 Chloride 95 L Carbon Dioxide 35.5 H Anion Gap 7 BUN 10 Creatinine 0.6 Estim Creat Clear Calc 104.1 eGFR > 60 BUN/Creatinine Ratio 17 Glucose 106 Calculated Osmolality 272 L Calcium 9.1 Corrected Calcium 9.4 Phosphorus 3.0 Magnesium 2.0 Total Bilirubin 0.8 AST 58 H ALT 174 H Alkaline Phosphatase 578 H Troponin I 0.060 H* Total Protein 5.6 L Albumin 3.6 Globulin 2.0 L Albumin/Globulin Ratio 1.8 HCV RNA Quant (PCR) <15 NOT DETECTED HCV RNA (PCR) IU log10 <1.18 NOT DETECTED Impressions Impression: # Ulcerated GE junction mass more towards the gastric side biopsies pending This mass most likely is an adenocarcinoma of the GE junction ABG Interpretation ABG results: 07/08/24 10:35 ABG pH 7.26 L ABG pCO2 39 ABG pO2 71 L ABG HCO3 17 L ABG O2 Saturation 93 ABG Base Excess -9 L Assessment & Plan A&P Narrative 1. 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 Status post pericardiocentesis to alleviate tamponade problem 2.Endoscopy suggests adenocarcinoma extending from the GE region towards the cardiac and the fundic portion of the stomach. Biopsy results pending. Additional imaging studies also pending. 3. Significant weight loss with possible need for artificial feeding support. Dietary following patient 4. Spoke with family regarding checking for immunotherapy and targeted therapy molecular markers along with HER2/giovanni to provide additional tools that may be employed in this obviously serious malignancy case. 5. Will follow. Thank you for allowing me to evaluate this case. Time Spent With Patient Time: Total time spent is greater than 50% in coordination of care (as documented) at patient's floor/unit and/or counseling patient:
[2024-07-13] MEDS: FINASTERIDE 5 MG TABLET PO (20:20)
[2024-07-13] MEDS: traZODone HCL 50 MG TABLET 100 MG PO (20:20)
[2024-07-14] VITALS (14 sets, daily range): BP systolic 102–145; BP diastolic 65–79; PULSE 86–138; RESP 18–32; TEMP 36.5–37; O2SAT 91–97
--- NOTE | 2024-07-14 07:40 | PD.RESPRO ---
Documentation for date of: 07/14/24 Subjective Subjective Interval history: Patient's vitals, labs, imaging and chart reviewed. Patient interviewed and examined at bedside accompanied by his . Was alerted by patient's nurse that he was tachycardic in the 130's to 140's this. Advised nurse to administer scheduled metoprolol and amiodarone earlier. On evaluation of patient's telemtry after some time, the patient's heart rate was still in the 130's. Cardiology was informed, and advised to increase dosing of Metoprolol to BID. Cardiology service will drain pericardial drain and assess output and will make decision to either remove the drain or leave in place. 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 Stated they will look into immunotherapy for further treatment and managemnt and will continue to follow the case. Exam Vital Signs Temp Pulse Resp BP Pulse Ox O2 Del Method O2 Flow Rate 98.6 F 99 29 H 130/77 92 L Nasal Cannula 1 07/14/24 04:00 07/14/24 04:00 07/14/24 04:00 07/14/24 04:00 07/14/24 04:00 07/14/24 04:00 07/14/24 04:00 Narrative Exam General: Not in any visible or apparent acute distress, sick appearing, alert and interactive HEENT: NC/AT, EOMI, good conjugate gaze, moist mucous membranes CVS: S1S2, tachycardic with irregular rate, No murmurs, rubs or gallops, presence of pericardial drain noted. Lungs: Normal respiratory effort, no wheezing rhonchi or rales, CTAB Abd: Soft, non-distended Ext: No edema, warm well perfused, decreased muscle tone, full ROM in all 4 extremities Skin: Intact, no rashes, no lesions, no erythema Neuro: AOx3, no gross focal neurological deficits Objective Labs 07/14/24 12:04 07/14/24 12:04 Labs: Laboratory Results - last 24 hr 07/13/24 05:25 Total Bilirubin 0.8 ABG Interpretation ABG results: 07/08/24 10:35 ABG pH 7.26 L ABG pCO2 39 ABG pO2 71 L ABG HCO3 17 L ABG O2 Saturation 93 ABG Base Excess -9 L Quality Measures Quality Measures VTE prophylaxis (SCDs) Advance care planning discussed with:: patient and spouse Assessment & Plan Assessment Current Active Medications: Generic Name Dose Route Start Last Admin Trade Name Freq PRN Reason Stop Dose Admin Acetaminophen 650 mg 07/06/24 09:34 Acetaminophen Supp 650 Mg Supp IL 08/04/24 16:55 Q6HR PRN FEVER>101.5 Acetaminophen 650 mg 07/13/24 13:33 07/13/24 13:47 Acetaminophen 325 Mg Tablet PO 08/12/24 13:32 650 mg Q6HR PRN Administration PAIN Albuterol/Ipratropium 3 ml 07/05/24 22:00 07/05/24 23:45 Albuterol/Ipratropium (Duoneb) Rt Zamzam 3 Ml Nebu INH 08/04/24 21:59 3 ml Q2HR PRN Administration SHORTNESS OF BREATH OR WHEEZE Amiodarone HCl 200 mg 07/12/24 09:00 07/13/24 09:25 Amiodarone Hcl 200 Mg Tablet PO 08/11/24 08:59 200 mg QDAY JADE Administration Finasteride 5 mg 07/08/24 21:00 07/13/24 20:20 Finasteride 5 Mg Tablet PO 08/07/24 20:59 5 mg HS JADE Administration Furosemide 40 mg 07/14/24 09:00 Furosemide Inj 10 Mg/Ml 4ml Vial IVP 08/13/24 08:59 QDAY JADE Levofloxacin/Dextrose 750 mg in 150 mls @ 100 mls/hr 07/09/24 09:00 07/13/24 09:27 Levaquin Ivpb IV 07/16/24 08:59 100 mls/hr QDAY JADE Administration Melatonin 3 mg 07/05/24 21:10 07/05/24 21:48 Melatonin 3 Mg Tablet PO 08/05/24 20:59 3 mg HS PRN Administration insomnia Metoprolol Succinate 50 mg 07/07/24 12:15 07/13/24 09:26 Metoprolol Succinate Xl 25 Mg Tabcr PO 08/06/24 12:14 50 mg DAILY JADE Administration Nicotine 14 mg 07/05/24 16:45 07/13/24 09:26 Nicotine Patch 14 Mg/24 Hr Patch.Td24 TOP 08/04/24 16:44 14 mg QDAY JADE Administration Ondansetron HCl 4 mg 07/05/24 16:56 Ondansetron Inj 2 Mg/Ml Inj 2 Ml IV 08/04/24 16:55 Q6H PRN NAUSEA OR VOMITING Protocol Pantoprazole Sodium 40 mg 07/12/24 09:30 07/13/24 20:21 Pantoprazole Inj 40 Mg Vial IV 08/11/24 09:29 40 mg BID JADE Administration Sennosides 1 tab 07/05/24 16:56 Senna Tablet PO 08/04/24 16:55 QDAY PRN constipation Protocol Trazodone HCl 100 mg 07/05/24 21:00 07/13/24 20:20 Trazodone Hcl 50 Mg Tablet PO 08/04/24 20:59 100 mg HS JADE Administration Plan Mr. 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 Patient states that he has been having shortness of breath and cough with phlegm, runny nose, and chest congestion for the past 2 weeks and the primary care physician had had ordered an x-ray with findings consistent of pneumonia and he was prescribed azithromycin. 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 #Orthostatic hypotension-resolved. -Although patient has primary hypertension, when he gets up from lying position his blood pressure drops. -when Pt. was getting out of bed from laying position his BP drop to 84/58. Laying down blood pressure is 118/62. -Patient reports that his breathing is worse when he lays on his back. -CTA showed Pericardial effusion measuring up to 30 mm. -Bedside echo performed by Dr. Spencer showed significant pericardial effusion with tamponade, estimated volume 700 cc. -Pericardiocentesis was performed on 07/09 with 750 cc of brown-red fluid removal. -Repeat pericardiocentesis 07/11 removed 300 cc. Plan: -Hold blood pressure medications and BPH medications. -Continue monitoring pericardial drain output, will remove when output less than 50 cc/day. 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 -Cytology report from pericardial effusions. Positive for malignancy poorly differentiated adenocarcinoma. Likely metastasis of the diffuse form of gastric adenocarcinoma. plan: -endoscopy done, pending biopsy results. -oncology consulted, appreciate recommendations and input #A-fib with RVR. #A-flutter with RVR. -Patient's heart rate was in the 130s to 140s. -EKG findings with consistent with A-fib with RVR. Plan: -Amiodarone 200 mg PO QDAY -Increased Metoprolol succinate 50 mg from once a day to BID. -Defer anticoagulation at this time due to increased risk of Bleeding #Troponinemia - resolved -Morning troponin 0.094 -> 0.071. -Continue to monitor. # Bilateral lower extremity edema # Fluid overload in the setting of CHF exacerbation ?Patient has 2+ pitting edema likely in the setting of fluid overload due to IV fluids given during hospitalization. -Lasix 40 Mg IV x 1 twice daily. #Sepsis 2/2 #Right-sided pneumonia. #Leukocytosis. #Lactic acidosis. -SIRS 3/4 - tachycardia, tachyapnea, leukocytosis. -Chest x-ray showed prominent diffuse right lung pneumonia and isolated scattered nodular opacities in the left lung. -lactic acid 3.1->4.4->3.4->4.2->6.1->3.2->2.8. -Rocephin 07/05-07/09; doxycycline 07/06-07/09. Plan: -Normal saline maintenance fluid. -started on levofloxacin 07/09- -Blood cultures preliminary negative. -Cocci - negative. -Lactic acid trending down. #Multiple liver lesions. #Hepatitis C. -AST and ALT remain uptrending over the last several days, last reading 390 and 490 respectively. Alk phos 496, total bilirubin 0.3. On admission LFTs were within normal limits. -lactic acid 3.1->4.4->3.4->4.2->6.1->3.2 -> 2.8. -US liver showed thickened gallbladder wall, consider HIDA scan or MRCP follow-up to exclude cholecystitis, multiple liver lesions which need additional diagnostic assessment. -Medication induced versus right heart failure and venous congestion in setting of tamponade. -Hepatitis panel was positive for hepatitis C. Plan: -Discontinue or hepatotoxic medications. -Continue IVF. -Continue to monitor labs. -GI is on board. -MRI of liver-hold until patient is stable. #Suspected bowel ischemia - ruled out #Symptomatic acute anemia. #GI bleed. -Patient reports 3 episodes of melena -Hemoglobin on admission was 10.9, Hct 32.8. patient's baseline is Hgb 14. -CTA of abdomen showed suspicious for early small bowel ischemia, clinical correlation advised, consider surgical consultation. -General Surgery was consulted, Dr. Danielson on board, clinically patient unlikely has bowel ischemia. Plan: -GI consulted- appreciate Dr. Malave's recommendation. -General Surgery consulted, Dr. Danielson on board. -IV Protonix 40mg BID. -PUD diet. -avoid chemical anticoagualtion. #Primary Hypertension. #CAD s/p PCI. -Hold patient's home medication: Metoprolol, amlodipine, benazepril, clopidogrel. -Continue metoprolol succinate, hold other home antihypertensives for now. #Depression. -Resume home trazodone and mirtazapine. #BPH. -Hold home tamsulosin due to orthostatic hypotension episodes. -resume home finasteride. #Nicotine dependence -Patient smokes approximately 10 cigarettes/day since the age of 17. -Counseled patient on smoking cessation. -Nicotine patch ordered. #History of CVA. -Patient has a history of CVA approximately 4 to 5 years ago with mild residual weakness in the left hand. Disposition: [facility] for management of Sepsis and GI bleed. DVT Prophylaxis: SCD QSHIFT. GI Prophylaxis: Pantoprozol-40 IV BID. Diet: Cardiac or Diabetic Diet, carbohydrate consistent. Code status: Full Patient's case was discussed with supervising attending physician Dr. Huber Horn M.D. Internal Medicine PGY-3 Attending Provider Attestation/Addendum Rafaela Masters DO, attest that I was physically present for the leyva portions of the service and evaluated the patient with the resident and I reviewed and discussed the case with the resident and agree with the resident's findings and plans of care as documented above Patient seen and evaluated this AM. at bedside. Patient states that he is aware of his overall guarded prognosis. He has no active complaints. B/l ankles appear swollen up to his mid martini. Patient was seen sitting up in bed. Encouraged patient to keep legs elevated at rest. Patient denies any shortness of breath, lightheadedness or chest pain. He was noted to be tachycardic this AM in the 130s. Case discussed with cardiology, will increase metoprolol to 50mg PO BID. Patient is at a very high risk of bleeding despite CHADSVASC of 3. Risks of bleeding outweight the benefits of anticoagulation. 25 cc of fluid was drained from pericardium today. Plan for removal of pericardial drain tomorrow. Will continue to monitor HR closely.
[2024-07-14] MEDS: AMIODARONE HCL 200 MG TABLET PO (07:42)
[2024-07-14] MEDS: METOPROLOL SUCCINATE XL 25 MG TABCR 50 MG PO ×2 (07:43→20:23)
[2024-07-14] MEDS: PANTOPRAZOLE INJ 40 MG VIAL IV ×2 (08:51→20:23)
[2024-07-14] MEDS: FUROSEMIDE INJ 10 MG/ML 4ML VIAL 40 MG IVP (08:52)
[2024-07-14] MEDS: NICOTINE PATCH 14 MG/24 HR PATCH.TD24 TOP (08:53)
[2024-07-14] MEDS: POTASSIUM CHLORIDE 10% 20 MEQ/15 ML UDC 40 MEQ PO (08:53)
--- NOTE | 2024-07-14 10:06 | ESPR_ITS ---
<Statement entered by Vinicio Spencer MD - 07/15/24 12:57> The patient is doing much better now examined in telemetry unit patient is not draining much pericardial fluid anymore and the catheter and patient is clinically improving as well not have any chest pain or shortness of breath. Will plan on removing the pericardial drainage catheter tomorrow if there is no further drainage after bedside echo. Agree with the treatment plan recommendation as formulated by Dr. 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 Patient also endorsed shortness of breath, cough with phlegm and runny nose with chest congestion from past 2 weeks. Patient was given azithromycin as outpatient for pneumonia seen on chest x-ray. He he also endorsed abdominal pain. Patient's reported that he has lost 14 pounds of weight with poor appetite. In the ED, patient's blood pressure was soft he was tachycardic and tachypneic. Initial labs revealed leukocytosis, normocytic anemia, mildly elevated ALP. Chest x-ray showed prominent diffuse right lung pneumonia and isolated scattered nodular opacities in the left lung. EKG showed sinus tachycardia, RBBB with heart rate 129. PMH: Hypertension, history of CVA CAD s/p PCI in 2019, COPD, depression PSH: PCI SH: Active tobacco smoker (smokes 10 cigarettes/day since the age of 17), occasionally drinks alcohol, denies illicit drugs use Cardiology team consulted due to recurrent hypotension, history of CAD post stents on Plavix and antihypertensives. Patient was seen and examined at the bedside. Patient is scheduled to get endoscopy per GI specialist. Primary team managing the patient with IV antibiotic therapy Rocephin and doxycycline. Continuing PPI therapy for GI bleed workup. Labs revealed hemoglobin stable at 11.3. Chemistry panel showed BUN 49 creatinine 1.0. Lactic acid uptrending at 4.0. Cocci IgM negative. Blood cultures pending. Recommended to stop Plavix and hold antihypertensive given soft blood pressure and sepsis. Given that patient has a history of PCI 4-5 years ago would benefit to stop Plavix. Continue treating infection given likely contributing factor for hypotension.F/u EGD results. Recent Echo from 2023 showed EF 67%a and nuclear scan was negative for any ischemia. 07/07/2024: Patient was seen and examined at the bedside. Patient's son was also present at the bedside. Patient reported that he was feeling loss of appetite and weight loss from last 4 months. Lactic acid down trended however remains elevated. Morning labs revealed leukocytosis, normocytic anemia. Chemistry panel showed mild acidosis with bicarb 19.4. Elevated ALP 383. Patient denied any abdominal pain. Recommended to continue IV antibiotic therapy for community-acquired pneumonia infection. Suggested to perform CTA abdomen to rule out mesenteric bowel ischemia. Recommended to discontinue fluids due to concern for fluid overload. No diuretic therapy recommended for now given lactic acidosis. Suggested to discontinue Plavix and antihypertensive. EGD showed esophageal ulcers at the GE junction, nonerosive gastritis, erythematous duodenopathy and GI specialist recommended to continue IV Protonix. Will likely follow on CTA abdomen results. All labs and orders were reviewed. 07/09/2024: Patient was seen and examined at the bedside. Patient underwent pericardiocentesis for pericardial effusion today performed by Dr. Spencer, flame annealing machine operator. Patient has been feeling a lot better since then. Vitals have been stable with mild tachycardia. Labs showed uptrending leukocytosis, stable hemoglobin. Chemistry panel showed mild hyponatremia. BUN 28. Lactic acid downtrending to 2.5. Elevated transaminases. Patient will be closely follow-up and pericardial catheter will be removed once fluid<50 cc. Continue IV Levaquin for treating infection. Will closely monitor for chest pain or shortness of breath. Continue metoprolol succinate 50 mg Once a day. repeated echocardiogram to evaluate post pericardiocentesis. All labs and orders were reviewed. 07/10/24: Patient was seen and examined at the bedside. Patient appears to be SOB and tachycardiac. Vitals shows tacycardia HR 140s EKG was consistent with A Fib with Rvr.Repeat Echo showed re-accumulation of fluid in pericardial space. Labs shows significant improvement in white count stable Hgb, Lactic acid was downtrending, Liver enzymes mildly improved.Echo showed There is a moderate circumferential pericardial effusion. We recommended to start amiodarone drip per protocol and will remove another 100 cc Pericardial fluid.Rest of the management remains same. 07/11/2024: Patient was seen and examined at the bedside. Patient appears to be mildly short of breath and was tachypneic with a respiratory rate 30. He seemed to be hypotensive with blood pressure 88/66. Saturating 96% on 6 L NC. Labs revealed leukocytosis with white count 14.1, hemoglobin 11.7. Chemistry panel unremarkable. BUN and creatinine stable. Liver functions downtrending. Pending MRI abdomen with/without contrast. Primary team gave Lasix 40 mg IV x 1. Removed 300 cc pericardial fluid today. Agreeable to give Lasix 40 x 1. Will switch amiodarone IV to p.o. 200 mg once a day from tomorrow. All labs and orders were reviewed. Close monitoring of vitals. 07/12/2024: Patient was seen and examined at the bedside. Patient had multiple episodes of rapid heart rate in night team was called.Vitals showed blood pressure 102/68, heart rate 127, tachypnea RR 21 and afebrile. He was saturating 98% on 4 L nasal cannula. Labs revealed white count 15.5, hemoglobin 12.7. Chemistry panel showed mild hypokalemia. Kidney function stable. Liver enzymes slightly improved. Troponin I downtrending. Pericardial fluid cytology showing adenocarcinoma. Recommended to start another bag o amiodarone drip for rate control. Electrolytes were repleted. Family will be updated regarding the plan. Primary team started Lasix 40 IV twice daily due to fluid overload state and patient showed diuresis output of 4 L with negative balance of 3 L. GI to perform another EGD given concern for adenocarcinoma of the stomach All labs and orders were reviewed. 07/13/2024: Patient was seen and examined at the bedside. Pericardial fluid 100 cc was removed from pericardial catheter. Will keep pericardial catheter for 1 more day and evaluate tomorrow morning if fluid remains less than 50 cc we will remove the catheter. Initial plan was to place pericardial balloon catheter however will assess the patient tomorrow morning. Heart rate remains controlled. Labs showed leukocytosis, hemoglobin 12.2. Chemistry panel showed potassium 3.4. Bicarb 35.5. Liver enzymes downtrending. Diamox and KCl 40 mEq given x 1. Diamox was given for contraction alkalosis. Reduced Lasix to 40 mg once a day. Continue current management. All labs and orders were reviewed. 07/14/2024: Patient was seen and examined at the bedside. Patient had consistently elevated heart rate in 130s. Blood pressure 118/73. He was saturating 93% 1 L NC. Labs were ordered. Removed 25 cc pericardial fluid today. Will likely remove catheter tomorrow. Recommended to continue Lasix 40 mg once a day, continue metoprolol succinate 50 mg twice daily now as heart rate remains uncontrolled and continue amiodarone 200 mg once a day. All labs and orders were reviewed. Exam Vital Signs Temp Pulse Resp BP Pulse Ox O2 Del Method O2 Flow Rate 97.7 F 130 H 18 118/73 93 L Nasal Cannula 1 07/14/24 07:45 07/14/24 09:42 07/14/24 09:42 07/14/24 08:52 07/14/24 09:42 07/14/24 07:45 07/14/24 09:42 Narrative Exam GENERAL: A&Ox3 . Awake, Not in acute distress, saturating well on 1 L NC. NEURO: station engineer main line grossly intact, moves extremities x4 HEENT: Atraumatic, Normocephalic. mucous membranes moist. Eyes open, symmetrical, & clear. Mild JVD HEART: Irregular rate and irregular rhythm. S1/S2. No murmurs rubs or gallops. Pericardial catheter seen. LUNGS: Clear to auscultation. Tachypneic. ABDOMEN: soft, non-distended, non-tender, bowel sounds heard, no guarding or rebound tenderness SKIN: No Rash or ecchymoses EXTREMITIES: No edema, tenderness, able to move all 4 extremities, pedal pulses palpated. Left upper extremity redness due to IV infiltration Psych: Appropriate mood and affect. Objective Labs 07/14/24 12:04 07/14/24 12:04 Labs: Laboratory Results - last 24 hr 07/13/24 05:25 Total Bilirubin 0.8 ABG Interpretation ABG results: 07/08/24 10:35 ABG pH 7.26 L ABG pCO2 39 ABG pO2 71 L ABG HCO3 17 L ABG O2 Saturation 93 ABG Base Excess -9 L Quality Measures Quality Measures VTE prophylaxis (SCDs) Advance care planning discussed with:: patient Assessment & Plan Assessment Current Active Medications: Generic Name Dose Route Start Last Admin Trade Name Freq PRN Reason Stop Dose Admin Acetaminophen 650 mg 07/06/24 09:34 Acetaminophen Supp 650 Mg Supp VT 08/04/24 16:55 Q6HR PRN FEVER>101.5 Acetaminophen 650 mg 07/13/24 13:33 07/13/24 13:47 Acetaminophen 325 Mg Tablet PO 08/12/24 13:32 650 mg Q6HR PRN Administration PAIN Albuterol/Ipratropium 3 ml 07/05/24 22:00 07/05/24 23:45 Albuterol/Ipratropium (Duoneb) Rt Zamzam 3 Ml Nebu INH 08/04/24 21:59 3 ml Q2HR PRN Administration SHORTNESS OF BREATH OR WHEEZE Amiodarone HCl 200 mg 07/12/24 09:00 07/14/24 07:42 Amiodarone Hcl 200 Mg Tablet PO 08/11/24 08:59 200 mg QDAY JADE Administration Finasteride 5 mg 07/08/24 21:00 07/13/24 20:20 Finasteride 5 Mg Tablet PO 08/07/24 20:59 5 mg HS JADE Administration Furosemide 40 mg 07/14/24 09:00 07/14/24 08:52 Furosemide Inj 10 Mg/Ml 4ml Vial IVP 08/13/24 08:59 40 mg QDAY JADE Administration Melatonin 3 mg 07/05/24 21:10 07/05/24 21:48 Melatonin 3 Mg Tablet PO 08/05/24 20:59 3 mg HS PRN Administration insomnia Metoprolol Succinate 50 mg 07/07/24 12:15 07/14/24 07:43 Metoprolol Succinate Xl 25 Mg Tabcr PO 08/06/24 12:14 50 mg DAILY JADE Administration Nicotine 14 mg 07/05/24 16:45 07/14/24 08:53 Nicotine Patch 14 Mg/24 Hr Patch.Td24 TOP 08/04/24 16:44 14 mg QDAY JADE Administration Ondansetron HCl 4 mg 07/05/24 16:56 Ondansetron Inj 2 Mg/Ml Inj 2 Ml IV 08/04/24 16:55 Q6H PRN NAUSEA OR VOMITING Protocol Pantoprazole Sodium 40 mg 07/12/24 09:30 07/14/24 08:51 Pantoprazole Inj 40 Mg Vial IV 08/11/24 09:29 40 mg BID JADE Administration Sennosides 1 tab 07/05/24 16:56 Senna Tablet PO 08/04/24 16:55 QDAY PRN constipation Protocol Trazodone HCl 100 mg 07/05/24 21:00 07/13/24 20:20 Trazodone Hcl 50 Mg Tablet PO 08/04/24 20:59 100 mg HS JADE Administration Plan This 74-year-old male with past medical history significant for hypertension, CAD s/p PCI, 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 Chest x-ray showed prominent diffuse right lung pneumonia and isolated scattered nodular opacities in the left lung. EKG showed sinus tachycardia, RBBB with heart rate 129. # Pericardial effusion post pericardiocentesis # Likely secondary to gastric adenocarcinoma/metastatic malignancy ? Patient was found to have large pericardial effusion seen on CTA imaging. ? Patient is feeling a lot better and less short of breath. ? Repeat Echo showed re-accumulation of fluid in pericardial space ? Pericardiocentesis performed today by flame annealing machine operator Dr. 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 Biopsy result awaiting. Oncology team has been consulted for further evaluation. ? Removed 100 cc pericardial fluid from pericardial catheter plan to remove catheter tomorrow morning if fluid remains less than 50 cc Plan: ? Remove 25 cc pericardial fluid today and will likely remove pericardial catheter tomorrow morning ? Monitor patient for pain and shortness of breath ? Pericardial catheter left in and will remove once fluid<50 cc ? Pain management as needed # Contraction alkalosis likely due to diuretic ? Bicarb 35.5 ?Diamox was given x 1 Plan: ? Pending labs ? Dose of Lasix reduced to 40 mg once a day #New Onset Atrial Fibrillation, RVR ? Patient had a rapid heart rate. EKG showed A Fib with Rvr HR in 140s. ? [id number] score 3 ?No anticoagulation given due to high risk of bleeding with underlying malignancy and GI bleed recently due to esophageal ulcer seen on EGD ?Amio drip was completed. Plan: ? Recommended to increase metoprolol succinate 50 mg 2 times a day given heart rate above 133 ?Continue amiodarone 200 mg p.o. daily ? Keep Mag above 2 and K above 4 ? Monitor for chest pain and SOB # NSTEMI type II likely supply demand ischemia ?Troponin I 0.094 -->0.07 Plan: ? Troponin I downtrended ?Continue to monitor for signs of chest pain or shortness of breath # CAD post stents on Plavix # Orthostatic hypotension # History of hypertension # HFpEF EF 55% ?Patient admitted for GI bleed workup. Presenting with black tarry stool. GI specialist following the case. Cardiology team consulted for recurrent hypotension episodes and for anticoagulation management. ? Patient is not complaining of chest pain or shortness of breath. Troponin I was negative. ? Echo showed that There is a moderate circumferential pericardial effusion. There is TV respiration variation and RA collapse. Normal LV size and function. Estimated EF 55%. Mild RV dilation. Normal RV function. Severe RA dilation Mild AV sclerosis without stenosis. Trace TR. left pleural effusion present. ?EGD showed nonerosive gastritis and esophageal ulcers. ?Patient's urine output 4 L with negative balance of 3 L Plan: ? Continue Lasix to 40 mg once a day and monitor strict BACILIO's, fluid restriction Daily weight ? Diamox was given for contraction close is an KCl repleted 40 mEq x 1 ? Recommended to discontinue Plavix and stop antihypertensives ? Continue metoprolol succinate 50 mg twice daily and amiodarone 200 mg once a day ? Continue Protonix 40 mg IV twice daily ? Treating underlying sepsis due to right-sided community-acquired pneumonia with antibiotics ? Monitor vitals closely ? 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 Cystitis. Plan ? EGD showed esophageal adenocarcinoma at the GE junction. Oncology consulted for further evaluation ?Oncology, Dr. Guevara was consulted for further evaluation Other active problems: #Esophageal ulcers per EGD finding #Nonerosive gastritis #Sepsis likely secondary to #Right-sided community-acquired pneumonia # Lactic acidosis type B #Normocytic hypochromic anemia #Leukocytosis # Thrombocytopenia #Orthostatic hypotension #Acute anemia in the setting of #GI bleed-likely upper #Depression #BPH #History of CVA -- Rest of the management as per primary care team. Thank you very much for consulting cardiology team.switch to p.o. amiodarone 200 mg once a day, increase dose of metoprolol to 50 mg twice daily. Removed 25 cc pericardial fluid today and will likely remove catheter tomorrow morning. Plan of care discussed with flame annealing machine operator, Dr. Tj Eden MD, PGY 2
[2024-07-14 12:47] LABS: Basophils # (Auto) 0.1 Thou/mm3 (0.0-0.2); Basophils % (Auto) 1 % (0-2.5); Eosinophils # (Auto) 0.2 Thou/mm3 (0.0-0.5); Eosinophils % (Auto) 2 % (0-10); Hematocrit 39.7 % (41.0-53.0); Immature Granulocytes % (Auto) 2 % (0-0); Immature Granulocytes Auto 0.29 Thou/mm3 (0.00-0.00); Lymphocytes % (Auto) 7 % (10-50); Mean Corpuscular HGB Conc 32.7 g/dl (31.0-37.0); Mean Corpuscular Hemoglobin 29.5 pg (25.0-35.0); Mean Corpuscular Volume 90 fL (80-100); Monocytes # (Auto) 1.3 Thou/mm3 (0.0-0.8); Monocytes % (Auto) 9 % (0-12); Neutrophils # (Auto) 12.1 Thou/mm3 (1.8-7.7); Neutrophils % (Auto) 81 % (37-80); Nucleated Red Blood Cell % 0 /100 WBC (0); Platelet Count 199 Thou/mm3 (140-440); RDW Standard Deviation 48.7 fL (35.1-43.9); Red Blood Count 4.41 Miln/mm3 (4.50-5.90)
[2024-07-14 13:06] LABS: Alanine Aminotransferase 121 U/L (10-49); Albumin, Serum 3.8 gm/dL (3.4-4.8); Albumin/Globulin Ratio 1.7 (1.2-2.2); Alkaline Phosphatase 739 U/L (46-116); Anion Gap 9 (7-16); Aspartate Amino Transferase 39 U/L (0-34); BUN/Creatinine Ratio 13 Ratio (12-20); Bilirubin,Total 0.8 mg/dL (0.3-1.2); Blood Urea Nitrogen 9 mg/dL (9-23); Calcium 9.2 mg/dL (8.3-10.6); Calcium (Corrected) 9.4 mg/dL (8.5-10.1); Carbon Dioxide 28.7 mMol/L (20.0-31.0); Chloride 98 mMol/L (98-107); Creatinine (Component) 0.7 mg/dL (0.6-1.3); Estimated Creatinine Clearance 89.2 mL/min (>60); Globulin 2.3 gm/dL (2.3-3.5); Glucose 110 mg/dL (74-106); Osmolality,Calculated 271 (275-295); Potassium 3.8 mMol/L (3.4-5.1); Sodium 136 mMol/L (136-145); Total Protein 6.1 gm/dL (5.7-8.2); eGFR > 60 See Note
--- NOTE | 2024-07-14 13:30 | PD.IMPROG ---
Documentation for date of: 07/14/24 Subjective Subjective Interval history: Advance patient's diet Biopsy report is not back yet Patient so far is not aware of his diagnosis and I have been told not to tell him Exam Vital Signs Temp Pulse Resp BP Pulse Ox O2 Del Method O2 Flow Rate 98.1 F 133 H 31 H 102/79 95 Nasal Cannula 1 07/14/24 11:43 07/14/24 11:43 07/14/24 11:43 07/14/24 11:43 07/14/24 11:43 07/14/24 11:43 07/14/24 11:43 Constitutional Comments: Alert oriented Routine Respiratory Exam Comments: Normal to auscultation Routine Abdominal Exam Comments: Soft nontender Objective Labs 07/14/24 12:04 07/14/24 12:04 Labs: Laboratory Results - last 24 hr 07/13/24 07/14/24 05:25 12:04 WBC 15.0 H RBC 4.41 L Hgb 13.0 L Hct 39.7 L MCV 90 MCH 29.5 MCHC 32.7 RDW Std Deviation 48.7 H Plt Count 199 Neut % (Auto) 81 H Lymph % (Auto) 7 L [place] % (Auto) 9 Eos % (Auto) 2 Baso % (Auto) 1 Neut # (Auto) 12.1 H Lymph # (Auto) 1.0 [place] # (Auto) 1.3 H Eos # (Auto) 0.2 Baso # (Auto) 0.1 Immature Gran # (Auto) 0.29 H Absolute Nucleated RBC 0.00 Immature Gran % 2 H Nucleated RBC % 0 Sodium 136 Potassium 3.8 Chloride 98 Carbon Dioxide 28.7 Anion Gap 9 BUN 9 Creatinine 0.7 Estim Creat Clear Calc 89.2 eGFR > 60 BUN/Creatinine Ratio 13 Glucose 110 H Calculated Osmolality 271 L Calcium 9.2 Corrected Calcium 9.4 Phosphorus 3.0 Magnesium 2.0 Total Bilirubin 0.8 0.8 AST 39 H ALT 121 H Alkaline Phosphatase 739 H D Total Protein 6.1 Albumin 3.8 Globulin 2.3 Albumin/Globulin Ratio 1.7 Impressions Impression: # GE junction adenocarcinoma # Distal esophageal ulceration Advance diet as tolerated ABG Interpretation ABG results: 07/08/24 10:35 ABG pH 7.26 L ABG pCO2 39 ABG pO2 71 L ABG HCO3 17 L ABG O2 Saturation 93 ABG Base Excess -9 L Assessment & Plan A&P Narrative 1. 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 Status post pericardiocentesis to alleviate tamponade problem 2.Endoscopy suggests adenocarcinoma extending from the GE region towards the cardiac and the fundic portion of the stomach. Biopsy results pending. Additional imaging studies also pending. 3. Significant weight loss with possible need for artificial feeding support. Dietary following patient 4. Spoke with family regarding checking for immunotherapy and targeted therapy molecular markers along with HER2/giovanni to provide additional tools that may be employed in this obviously serious malignancy case. 5. Will follow. Thank you for allowing me to evaluate this case. Time Spent With Patient Time: Total time spent is greater than 50% in coordination of care (as documented) at patient's floor/unit and/or counseling patient:
--- NOTE | 2024-07-14 14:02 | PC.NURSE ---
and drained pericardial cath with approx.25 ml.
--- NOTE | 2024-07-14 15:52 | PC.NURSE ---
notified regarding HR 138 a-fib,new order received.
--- NOTE | 2024-07-14 16:34 | PC.NURSE ---
transferred pt. to [id number] with all personal belongings.
[2024-07-14] MEDS: FINASTERIDE 5 MG TABLET PO (20:23)
[2024-07-14] MEDS: traZODone HCL 50 MG TABLET 100 MG PO (20:23)
[2024-07-15] VITALS (13 sets, daily range): BP systolic 120–143; BP diastolic 67–89; PULSE 79–92; RESP 17–44; TEMP 36.1–36.9; O2SAT 91–96
[2024-07-15 06:06] LABS: Basophils # (Auto) 0.1 Thou/mm3 (0.0-0.2); Basophils % (Auto) 1 % (0-2.5); Eosinophils # (Auto) 0.3 Thou/mm3 (0.0-0.5); Eosinophils % (Auto) 3 % (0-10); Hemoglobin 11.9 g/dL (13.5-16.0); Immature Granulocytes % (Auto) 3 % (0-0); Immature Granulocytes Auto 0.29 Thou/mm3 (0.00-0.00); Lymphocytes # (Auto) 0.8 Thou/mm3 (1.0-4.8); Lymphocytes % (Auto) 8 % (10-50); Mean Corpuscular HGB Conc 33.1 g/dl (31.0-37.0); Mean Corpuscular Hemoglobin 29.7 pg (25.0-35.0); Mean Corpuscular Volume 90 fL (80-100); Monocytes # (Auto) 1.1 Thou/mm3 (0.0-0.8); Monocytes % (Auto) 10 % (0-12); Neutrophils # (Auto) 8.2 Thou/mm3 (1.8-7.7); Neutrophils % (Auto) 76 % (37-80); Nucleated Red Blood Cell % 0 /100 WBC (0); Platelet Count 168 Thou/mm3 (140-440); RDW Standard Deviation 47.3 fL (35.1-43.9); Red Blood Count 4.01 Miln/mm3 (4.50-5.90); White Blood Count 10.9 Thou/mm3 (3.8-10.6)
[2024-07-15 06:50] LABS: Alanine Aminotransferase 85 U/L (10-49); Albumin, Serum 3.4 gm/dL (3.4-4.8); Albumin/Globulin Ratio 1.7 (1.2-2.2); Alkaline Phosphatase 716 U/L (46-116); Anion Gap 8 (7-16); Aspartate Amino Transferase 38 U/L (0-34); BUN/Creatinine Ratio 15 Ratio (12-20); Bilirubin,Total 0.6 mg/dL (0.3-1.2); Blood Urea Nitrogen 9 mg/dL (9-23); Calcium 8.7 mg/dL (8.3-10.6); Calcium (Corrected) 9.2 mg/dL (8.5-10.1); Carbon Dioxide 31.1 mMol/L (20.0-31.0); Chloride 99 mMol/L (98-107); Creatinine (Component) 0.6 mg/dL (0.6-1.3); Estimated Creatinine Clearance 104.1 mL/min (>60); Glucose 107 mg/dL (74-106); Magnesium 2.1 mg/dL (1.6-2.6); Osmolality,Calculated 274 (275-295); Potassium 3.4 mMol/L (3.4-5.1); Sodium 138 mMol/L (136-145); Total Protein 5.4 gm/dL (5.7-8.2); eGFR > 60 See Note
[2024-07-15] MEDS: FUROSEMIDE INJ 10 MG/ML 4ML VIAL 40 MG IVP (09:08)
[2024-07-15] MEDS: PANTOPRAZOLE INJ 40 MG VIAL IV ×2 (09:08→20:50)
[2024-07-15] MEDS: AMIODARONE HCL 200 MG TABLET PO (09:08)
[2024-07-15] MEDS: METOPROLOL SUCCINATE XL 25 MG TABCR 50 MG PO ×2 (09:09→20:51)
[2024-07-15] MEDS: NICOTINE PATCH 14 MG/24 HR PATCH.TD24 TOP (09:09)
[2024-07-15] MEDS: POTASSIUM CHLORIDE 10% 20 MEQ/15 ML UDC 40 MEQ PO (09:26)
--- NOTE | 2024-07-15 12:30 | PC.NURSE ---
removed pericardial drain @bedside,pt. tolerated procedure well.dressing applied.
--- NOTE | 2024-07-15 13:34 | ESPR_ITS ---
<Statement entered by Ilir Dixon MD - 07/15/24 14:15> Senior Resident Attestation: I supervised/discussed management plan with hospitality internship physician Dr. Rodriguez, and was involved in the care of this patient. I personally saw and examined the patient and discussed the assessment and plan with the entire medicine team, including my attending. I agree with the assessment and plan as documented. Patient was seen and examined at bedside. No acute overnight events. He reports no complaints and his breathing is fine. His pericardial drain was removed today after removing 25 cc of fluid. Pending pathology report. Will continue current management and monitor patient, possible discharge tomorrow after pathology report is back. Patient's care was discussed with attending physician, Dr. Ngo. Ilir Dixon MD PGY-2. Documentation for date of: 07/15/24 Subjective Subjective Interval history: 07/06: Overnight patient has not a rapid response for hypotension blood pressure was 84/62 and patient was having shortness of breath, patient received some breathing treatments and hemodynamic stable. This morning patient was seen and examined at bedside, patient was saturating well on room air. Patient endorses improvement in shortness of breath, denies chest pain, nausea, vomiting or abdominal pain. Patient states he feels much better and he can breathe comfortably. Denies any cough or wheezing. Patient requested that he would like to switch his azithromycin to something else because he believes that azithromycin is causing him the GI bleed. Patient has no other complaints 07/07: No overnight events. Pt is seen and examine at bedside. Pt endorses improvement on SOB form last night. Pt. is saturating on room air, pt denies chest pain, nausea, vomiting or abdominal pain. Pt states he was able to sleep last night because he was given him home trazadone, because melatonin does not help. Pt. has no complains. 07/08: review Dr. Waters note 07/09: review Dr. Waters note 07/10: No overnight events, patient is seen and examined at bedside. This morning patient endorses significant improvement in his shortness of breath, patient is saturating well on 1 L of oxygen. Patient states that his last bowel movement was 2 days ago and continues to notice dark stool. Patient also states that he has mild chest pain at the cath location. Patient denies any chest pain, nausea, vomiting or abdominal pain. Patient's lactic acid is downtrending to 2.5, AST and ALT is downtrending to 179 and 394. Alkaline phosphatase 531, and lactic dehydrogenase 386. Patient has no other complaints. Later in the afternoon patient was very tachycardic with a heart rate in the 130s to 140s stat EKG was ordered findings were consistent with A-fib with RVR. Repeat echo from this morning showed reaccumulation of pericardial fluid. Per Dr. Spencer's recommendation patient is started on amiodarone drip and plan to remove pericardial fluid. 07/11: No overnight events, patient seen and examined at bedside. Patient's is present, patient complains of some shortness of breath, but denies any chest pain. Currently patient is on 4 L of oxygen via nasal cannula. Patient also stated he noted to have swelling all over his body mostly prominent in the lower extremities. Patient denies any abdominal pain. Patient's MRI was not able to be done yesterday because patient was unable to lay flat for 30 minutes. This morning patient is continued on the amiodarone drip for the new finding of A-fib with RVR. Will attempt MRI today. Patient has no other complaints. 07/12: Overnight team reported patient heart rate was constantly above 140s to 160s throughout the night. Patient was given his metoprolol earlier than his normal dose time. Patient is seen and examined at bedside this morning he is resting comfortably and his shortness of breath is worse today. Patient denies any chest pains. Patient is notified about his suspected gastric adenocarcinoma per pathology report. EGD is pending for biopsy. Patient is also given digoxin x 1 for rate control. Patient has worsening pitting edema and started Lasix 40 twice daily. Second attempt of MRI was made last night which was unsuccessful due to incompatibility of pericardial cath and MRI. For now we will hold MRI. Patient has no other complaints. 07/13: See Dr. Dixon's note 07/14: See Dr. Horn's note 07/15: No overnight events. Patient seen and examined at bedside. Patient is resting comfortably with his lower extremities on elevation patient is saturating on 1 L oxygen via nasal cannula. Patient endorses significant improvement of shortness of breath which previously would worsen when he would lay down. Patient still has 2+ pitting edema on lower extremities. Patient continues to have good appetite but does state that he eats slowly because it is hard for him to swallow. Patient denies any chest pain, abdominal pain, nausea or vomiting. Dr. Spencer removed pericardial cath today because there was no output. Yesterday 25 cc fluid was removed via pericardial cath. Still pending confirmatory pathology report after endoscopy. Patient has no other complaints Exam Vital Signs Temp Pulse Resp BP Pulse Ox O2 Del Method O2 Flow Rate 98.4 F 81 20 123/73 94 L Nasal Cannula 1 07/15/24 12:00 07/15/24 12:00 07/15/24 12:00 07/15/24 12:00 07/15/24 12:00 07/15/24 12:00 07/15/24 12:00 Narrative Exam GENERAL: A&Ox3 . 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 mucous membranes moist. Eyes open, symmetrical, & clear HEART: Normal Heart Sounds, Pericardial catheter removed on 07/15/24 LUNGS: Clear to auscultation ABDOMEN: soft, non-distended, non-tender, bowel sounds heard, no guarding or rebound tenderness SKIN: No Rash or ecchymoses EXTREMITIES: 2+ pitting edema, no tenderness, able to move all 4 extremities Objective Labs 07/15/24 05:20 07/15/24 05:20 Labs: Laboratory Results - last 24 hr 07/15/24 05:20 WBC 10.9 H RBC 4.01 L Hgb 11.9 L Hct 36.0 L MCV 90 MCH 29.7 MCHC 33.1 RDW Std Deviation 47.3 H Plt Count 168 D Neut % (Auto) 76 Lymph % (Auto) 8 L [place] % (Auto) 10 Eos % (Auto) 3 Baso % (Auto) 1 Neut # (Auto) 8.2 H Lymph # (Auto) 0.8 L [place] # (Auto) 1.1 H Eos # (Auto) 0.3 Baso # (Auto) 0.1 Immature Gran # (Auto) 0.29 H Absolute Nucleated RBC 0.00 Immature Gran % 3 H Nucleated RBC % 0 Sodium 138 Potassium 3.4 Chloride 99 Carbon Dioxide 31.1 H Anion Gap 8 BUN 9 Creatinine 0.6 Estim Creat Clear Calc 104.1 eGFR > 60 BUN/Creatinine Ratio 15 Glucose 107 H Calculated Osmolality 274 L Calcium 8.7 Corrected Calcium 9.2 Phosphorus 3.0 Magnesium 2.1 Total Bilirubin 0.6 AST 38 H ALT 85 H Alkaline Phosphatase 716 H D Total Protein 5.4 L Albumin 3.4 Globulin 2.0 L Albumin/Globulin Ratio 1.7 ABG Interpretation ABG results: 07/08/24 10:35 ABG pH 7.26 L ABG pCO2 39 ABG pO2 71 L ABG HCO3 17 L ABG O2 Saturation 93 ABG Base Excess -9 L Quality Measures Quality Measures VTE prophylaxis (SCDs) Advance care planning discussed with:: patient Assessment & Plan Assessment Current Active Medications: Generic Name Dose Route Start Last Admin Trade Name Freq PRN Reason Stop Dose Admin Acetaminophen 650 mg 07/06/24 09:34 Acetaminophen Supp 650 Mg Supp [place] 08/04/24 16:55 Q6HR PRN FEVER>101.5 Acetaminophen 650 mg 07/13/24 13:33 07/13/24 13:47 Acetaminophen 325 Mg Tablet PO 08/12/24 13:32 650 mg Q6HR PRN Administration PAIN Albuterol/Ipratropium 3 ml 07/05/24 22:00 07/05/24 23:45 Albuterol/Ipratropium (Duoneb) Rt Zamzam 3 Ml Nebu INH 08/04/24 21:59 3 ml Q2HR PRN Administration SHORTNESS OF BREATH OR WHEEZE Amiodarone HCl 200 mg 07/12/24 09:00 07/15/24 09:08 Amiodarone Hcl 200 Mg Tablet PO 08/11/24 08:59 200 mg QDAY JADE Administration Finasteride 5 mg 07/08/24 21:00 07/14/24 20:23 Finasteride 5 Mg Tablet PO 08/07/24 20:59 5 mg HS JADE Administration Furosemide 40 mg 07/14/24 09:00 07/15/24 09:08 Furosemide Inj 10 Mg/Ml 4ml Vial IVP 08/13/24 08:59 40 mg QDAY JADE Administration Melatonin 3 mg 07/05/24 21:10 07/05/24 21:48 Melatonin 3 Mg Tablet PO 08/05/24 20:59 3 mg HS PRN Administration insomnia Metoprolol Succinate 50 mg 07/14/24 21:00 07/15/24 09:09 Metoprolol Succinate Xl 25 Mg Tabcr PO 08/13/24 20:59 50 mg BID JADE Administration Nicotine 14 mg 07/05/24 16:45 07/15/24 09:09 Nicotine Patch 14 Mg/24 Hr Patch.Td24 TOP 08/04/24 16:44 14 mg QDAY JADE Administration Ondansetron HCl 4 mg 07/05/24 16:56 Ondansetron Inj 2 Mg/Ml Inj 2 Ml IV 08/04/24 16:55 Q6H PRN NAUSEA OR VOMITING Protocol Pantoprazole Sodium 40 mg 07/12/24 09:30 07/15/24 09:08 Pantoprazole Inj 40 Mg Vial IV 08/11/24 09:29 40 mg BID JADE Administration Sennosides 1 tab 07/05/24 16:56 Senna Tablet PO 08/04/24 16:55 QDAY PRN constipation Protocol Trazodone HCl 100 mg 07/05/24 21:00 07/14/24 20:23 Trazodone Hcl 50 Mg Tablet PO 08/04/24 20:59 100 mg HS JADE Administration Plan Mr. 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 Patient states that he has been having shortness of breath and cough with phlegm, runny nose, and chest congestion for the past 2 weeks and the primary care physician had had ordered an x-ray with findings consistent of pneumonia and he was prescribed azithromycin. 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 #Orthostatic hypotension-resolved. -Although patient has primary hypertension, when he gets up from lying position his blood pressure drops. -when Pt. was getting out of bed from laying position his BP drop to 84/58. Laying down blood pressure is 118/62. -Patient reports that his breathing is worse when he lays on his back. -CTA showed Pericardial effusion measuring up to 30 mm. -Bedside echo performed by Dr. Spencer showed significant pericardial effusion with tamponade, estimated volume 700 cc. -Pericardiocentesis was performed on 07/09 with 750 cc of brown-red fluid removal. -Repeat pericardiocentesis 07/11 removed 300 cc. -Pericardiocentesis on 07/14 removed 25 cc Plan: -Hold blood pressure medications and BPH medications. -Removed pericardial cath by Dr. Spencer today as there was no output 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 -Cytology report from pericardial effusions. Positive for malignancy poorly differentiated adenocarcinoma. Likely metastasis of the diffuse form of gastric adenocarcinoma. plan: -endoscopy done, pending pathology results. -oncology consulted, appreciate recommendations and input #A-fib with RVR. #A-flutter with RVR. -Patient's heart rate was in the 130s to 140s. -EKG findings with consistent with A-fib with RVR. Plan: -Amiodarone 200 mg PO QDAY -Increased Metoprolol succinate 50 mg from once a day to BID. -Defer anticoagulation at this time due to increased risk of Bleeding #Troponinemia - resolved -Morning troponin 0.094 -> 0.071. -Continue to monitor. #Bilateral lower extremity edema #Fluid overload in the setting of CHF exacerbation ?Patient has 2+ pitting edema likely in the setting of fluid overload due to IV fluids given during hospitalization. -Lasix 40 Mg IV x 1 twice daily. #Sepsis 2/2 #Right-sided pneumonia. #Leukocytosis. #Lactic acidosis. -SIRS 3/4 - tachycardia, tachyapnea, leukocytosis. -Chest x-ray showed prominent diffuse right lung pneumonia and isolated scattered nodular opacities in the left lung. -lactic acid 3.1->4.4->3.4->4.2->6.1->3.2->2.8. -Rocephin 07/05-07/09; doxycycline 07/06-07/09. Plan: -Normal saline maintenance fluid. -started on levofloxacin 07/09- -Blood cultures preliminary negative. -Cocci - negative. -Lactic acid trending down. #Multiple liver lesions. #Hepatitis C. -AST and ALT remain uptrending over the last several days, last reading 390 and 490 respectively. Alk phos 496, total bilirubin 0.3. On admission LFTs were within normal limits. -lactic acid 3.1->4.4->3.4->4.2->6.1->3.2 -> 2.8. -US liver showed thickened gallbladder wall, consider HIDA scan or MRCP follow- up to exclude cholecystitis, multiple liver lesions which need additional diagnostic assessment. -Medication induced versus right heart failure and venous congestion in setting of tamponade. -Hepatitis panel was positive for hepatitis C. Plan: -Discontinue or hepatotoxic medications. -Continue IVF. -Continue to monitor labs. -GI is on board. -MRI of liver-hold until patient is stable. #Suspected bowel ischemia - ruled out #Symptomatic acute anemia. #GI bleed. -Patient reports 3 episodes of melena -Hemoglobin on admission was 10.9, Hct 32.8. patient's baseline is Hgb 14. -CTA of abdomen showed suspicious for early small bowel ischemia, clinical correlation advised, consider surgical consultation. -General Surgery was consulted, Dr. Danielson on board, clinically patient unlikely has bowel ischemia. Plan: -GI consulted- appreciate Dr. Malave's recommendation. -General Surgery consulted, Dr. Danielson on board. -IV Protonix 40mg BID. -PUD diet. -avoid chemical anticoagualtion. #Primary Hypertension. #CAD s/p PCI. -Hold patient's home medication: Metoprolol, amlodipine, benazepril, clopidogrel. -Continue metoprolol succinate, hold other home antihypertensives for now. #Depression. -Resume home trazodone and mirtazapine. #BPH. -Hold home tamsulosin due to orthostatic hypotension episodes. -resume home finasteride. #Nicotine dependence -Patient smokes approximately 10 cigarettes/day since the age of 17. -Counseled patient on smoking cessation. -Nicotine patch ordered. #History of CVA. -Patient has a history of CVA approximately 4 to 5 years ago with mild residual weakness in the left hand. Disposition: Telemetry status post pericardiocentesis awaiting path reports DVT Prophylaxis: SCD QSHIFT. GI Prophylaxis: Pantoprozol-40 IV BID. Diet: Cardiac or Diabetic Diet, carbohydrate consistent. Code status: Full Assessment and plan discussed with my senior resident Dr. Dixon & attending physician Dr. Huber Rodriguez (PGY-1)- Internal medicine resident Attending Provider Attestation/Addendum Rafaela Masters, , attest that I was physically present for the leyva portions of the service and evaluated the patient with the resident and I reviewed and discussed the case with the resident and agree with the resident's findings and plans of care as documented above Patient seen and evaluated this AM. He states he is feeling well. Pericardial drain was removed after bedside echo was done which showed minimal fluid. Pending biopsy results. HR improved with metoprolol 50mg PO BID. Anticipate DC within next 24-48hrs. B/l LE edema remains the same. Patient denies any chest pain or shortness of breath.
[2024-07-15] MEDS: ACETAMINOPHEN 325 MG TABLET 650 MG PO (14:04)
--- NOTE | 2024-07-15 14:31 | ESPR_ITS ---
RE: JUAN ANTONIO COELLO : 1950 DATE OF SERVICE: 07/15/2024 S: The patient is doing better today. I did a bedside echo showed no evidence of pericardial effusion. I removed the pericardial drainage catheter, which is only had about 20 mL of fluid. Cardiac echo showed complete resolution of pericardial effusion. He followed by Oncology as well as Gastroenterology for possible esophageal tumor getting more workup. Clinically, doing well. He did have volume overload receiving diuretics, now receiving furosemide 40 mg IV daily along with potassium chloride, metoprolol 50 b.i.d. for atrial fibrillation and along with amiodarone. Today, he is maintaining sinus rhythm so far, no evidence of atrial flutter/fibrillation, should help after removing the pericardial drainage catheter. GENERAL: Shows alert, awake, in no acute distress, well-built male, not complaining of any pain. VITAL SIGNS: Blood pressure 123/70, pulse 80, respirations 20, temperature normal. NECK: Supple. No JVD. LUNGS: Decreased breath sounds. No rales or rhonchi. HEART: Sounds regular sinus rhythm. ABDOMEN: Thin and soft. EXTREMITIES: Still have 1+ edema of both feet. A: 1. Malignant pericardial effusion, status post pericardiocentesis and removal of the catheter. 2. 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 3. Paroxysmal atrial fibrillation/flutter, possibly due to pericardial disease and pericardial effusion and presence of catheter, which should improve. 4. Coronary artery disease, status post stent placement. 5. Hypertension. 6. Edema of the feet, fluid overload. P: Continue IV diuretic for now, change it to oral diuretic later on. Continue the amiodarone and metoprolol for rate control. No anticoagulation for now. The patient remained in sinus rhythm, though patient has AFib, I am not concerned about bleeding risk. CHADS2-VAsc score only 3, but he has malignancy as well as tendency for bleeding hence we will hold off anticoagulation for now. DT: 13:20:17 TT: 14:29:00 Ref: [id number] - TID: [id number]
--- NOTE | 2024-07-15 18:00 | PD.IMPROG ---
Documentation for date of: 07/15/24 Subjective Subjective Interval history: Patient has some dysphagia Biopsy report is still pending Able to tolerate soft food White count is down to 10.9 Hemoglobin hematocrit 11.9 and 36.0 and a platelet count of 168,000 Exam Vital Signs Temp Pulse Resp BP Pulse Ox O2 Del Method O2 Flow Rate 96.9 F 86 20 136/74 H 96 Nasal Cannula 1 07/15/24 16:00 07/15/24 16:00 07/15/24 16:00 07/15/24 16:00 07/15/24 16:00 07/15/24 16:00 07/15/24 16:00 Constitutional Comments: Alert oriented Routine Respiratory Exam Comments: Normal to auscultation Routine Abdominal Exam Comments: Soft nontender Objective Labs 07/15/24 05:20 07/15/24 05:20 Labs: Laboratory Results - last 24 hr 07/15/24 05:20 WBC 10.9 H RBC 4.01 L Hgb 11.9 L Hct 36.0 L MCV 90 MCH 29.7 MCHC 33.1 RDW Std Deviation 47.3 H Plt Count 168 D Neut % (Auto) 76 Lymph % (Auto) 8 L [place] % (Auto) 10 Eos % (Auto) 3 Baso % (Auto) 1 Neut # (Auto) 8.2 H Lymph # (Auto) 0.8 L [place] # (Auto) 1.1 H Eos # (Auto) 0.3 Baso # (Auto) 0.1 Immature Gran # (Auto) 0.29 H Absolute Nucleated RBC 0.00 Immature Gran % 3 H Nucleated RBC % 0 Sodium 138 Potassium 3.4 Chloride 99 Carbon Dioxide 31.1 H Anion Gap 8 BUN 9 Creatinine 0.6 Estim Creat Clear Calc 104.1 eGFR > 60 BUN/Creatinine Ratio 15 Glucose 107 H Calculated Osmolality 274 L Calcium 8.7 Corrected Calcium 9.2 Phosphorus 3.0 Magnesium 2.1 Total Bilirubin 0.6 AST 38 H ALT 85 H Alkaline Phosphatase 716 H D Total Protein 5.4 L Albumin 3.4 Globulin 2.0 L Albumin/Globulin Ratio 1.7 Impressions Impression: # GE junction mass which is ulcerated most likely adenocarcinoma biopsies pending # Some dysphagia secondary to 1 Continue current management and diet ABG Interpretation ABG results: 07/08/24 10:35 ABG pH 7.26 L ABG pCO2 39 ABG pO2 71 L ABG HCO3 17 L ABG O2 Saturation 93 ABG Base Excess -9 L Assessment & Plan A&P Narrative 1. 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 Status post pericardiocentesis to alleviate tamponade problem 2.Endoscopy suggests adenocarcinoma extending from the GE region towards the cardiac and the fundic portion of the stomach. Biopsy results pending. Additional imaging studies also pending. 3. Significant weight loss with possible need for artificial feeding support. Dietary following patient 4. Spoke with family regarding checking for immunotherapy and targeted therapy molecular markers along with HER2/giovanni to provide additional tools that may be employed in this obviously serious malignancy case. 5. Will follow. Thank you for allowing me to evaluate this case. Time Spent With Patient Time: Total time spent is greater than 50% in coordination of care (as documented) at patient's floor/unit and/or counseling patient:
[2024-07-15] MEDS: FINASTERIDE 5 MG TABLET PO (20:50)
[2024-07-15] MEDS: traZODone HCL 50 MG TABLET 100 MG PO (20:50)
[2024-07-16] VITALS (11 sets, daily range): BP systolic 119–150; BP diastolic 62–73; PULSE 79–89; RESP 20–28; TEMP 36.4–36.9; O2SAT 90–96
[2024-07-16 06:03] LABS: Basophils # (Auto) 0.2 Thou/mm3 (0.0-0.2); Basophils % (Auto) 1 % (0-2.5); Eosinophils # (Auto) 0.3 Thou/mm3 (0.0-0.5); Eosinophils % (Auto) 3 % (0-10); Hematocrit 37.4 % (41.0-53.0); Immature Granulocytes % (Auto) 3 % (0-0); Immature Granulocytes Auto 0.33 Thou/mm3 (0.00-0.00); Lymphocytes # (Auto) 1.1 Thou/mm3 (1.0-4.8); Lymphocytes % (Auto) 10 % (10-50); Mean Corpuscular HGB Conc 32.1 g/dl (31.0-37.0); Mean Corpuscular Hemoglobin 28.8 pg (25.0-35.0); Mean Corpuscular Volume 90 fL (80-100); Monocytes # (Auto) 1.2 Thou/mm3 (0.0-0.8); Monocytes % (Auto) 11 % (0-12); Neutrophils # (Auto) 8.1 Thou/mm3 (1.8-7.7); Neutrophils % (Auto) 72 % (37-80); Nucleated Red Blood Cell % 0 /100 WBC (0); Platelet Count 175 Thou/mm3 (140-440); RDW Standard Deviation 47.3 fL (35.1-43.9); Red Blood Count 4.16 Miln/mm3 (4.50-5.90); White Blood Count 11.2 Thou/mm3 (3.8-10.6)
[2024-07-16 06:52] LABS: Alanine Aminotransferase 67 U/L (10-49); Albumin, Serum 3.4 gm/dL (3.4-4.8); Albumin/Globulin Ratio 1.5 (1.2-2.2); Alkaline Phosphatase 745 U/L (46-116); Anion Gap 8 (7-16); Aspartate Amino Transferase 29 U/L (0-34); BUN/Creatinine Ratio 22 Ratio (12-20); Bilirubin,Total 0.5 mg/dL (0.3-1.2); Blood Urea Nitrogen 11 mg/dL (9-23); Calcium (Corrected) 9.5 mg/dL (8.5-10.1); Carbon Dioxide 30.7 mMol/L (20.0-31.0); Chloride 97 mMol/L (98-107); Creatinine (Component) 0.5 mg/dL (0.6-1.3); Estimated Creatinine Clearance 124.9 mL/min (>60); Globulin 2.2 gm/dL (2.3-3.5); Glucose 104 mg/dL (74-106); Osmolality,Calculated 271 (275-295); Phosphorous 2.5 mg/dL (2.4-5.1); Potassium 3.8 mMol/L (3.4-5.1); Sodium 136 mMol/L (136-145); Total Protein 5.6 gm/dL (5.7-8.2); eGFR > 60 See Note
[2024-07-16] MEDS: ACETAMINOPHEN 325 MG TABLET 650 MG PO (07:00)
[2024-07-16] MEDS: FUROSEMIDE INJ 10 MG/ML 4ML VIAL 40 MG IVP (08:11)
[2024-07-16] MEDS: PANTOPRAZOLE INJ 40 MG VIAL IV (08:11)
[2024-07-16] MEDS: NICOTINE PATCH 14 MG/24 HR PATCH.TD24 TOP (08:13)
[2024-07-16] MEDS: METOPROLOL SUCCINATE XL 25 MG TABCR 50 MG PO (08:13)
[2024-07-16] MEDS: AMIODARONE HCL 200 MG TABLET PO (08:13)
--- NOTE | 2024-07-16 10:19 | ESPR_ITS ---
<Statement entered by Vinicio Spencer MD - 07/18/24 18:57> The patient is seen by me appears to be doing better today cardiac andrade no recurrent pericardial effusion during cardiac clearance for discharge we will see him as an outpatient following discharge I evaluated the patient along with resident physician agree with the treatment plan recommendation as recommended by PGY 2 Dr. 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 Patient also endorsed shortness of breath, cough with phlegm and runny nose with chest congestion from past 2 weeks. Patient was given azithromycin as outpatient for pneumonia seen on chest x-ray. He he also endorsed abdominal pain. Patient's reported that he has lost 14 pounds of weight with poor appetite. In the ED, patient's blood pressure was soft he was tachycardic and tachypneic. Initial labs revealed leukocytosis, normocytic anemia, mildly elevated ALP. Chest x-ray showed prominent diffuse right lung pneumonia and isolated scattered nodular opacities in the left lung. EKG showed sinus tachycardia, RBBB with heart rate 129. PMH: Hypertension, history of CVA CAD s/p PCI in 2019, COPD, depression PSH: PCI SH: Active tobacco smoker (smokes 10 cigarettes/day since the age of 17), occasionally drinks alcohol, denies illicit drugs use Cardiology team consulted due to recurrent hypotension, history of CAD post stents on Plavix and antihypertensives. Patient was seen and examined at the bedside. Patient is scheduled to get endoscopy per GI specialist. Primary team managing the patient with IV antibiotic therapy Rocephin and doxycycline. Continuing PPI therapy for GI bleed workup. Labs revealed hemoglobin stable at 11.3. Chemistry panel showed BUN 49 creatinine 1.0. Lactic acid uptrending at 4.0. Cocci IgM negative. Blood cultures pending. Recommended to stop Plavix and hold antihypertensive given soft blood pressure and sepsis. Given that patient has a history of PCI 4-5 years ago would benefit to stop Plavix. Continue treating infection given likely contributing factor for hypotension.F/u EGD results. Recent Echo from 2023 showed EF 67%a and nuclear scan was negative for any ischemia. 07/07/2024: Patient was seen and examined at the bedside. Patient's son was also present at the bedside. Patient reported that he was feeling loss of appetite and weight loss from last 4 months. Lactic acid down trended however remains elevated. Morning labs revealed leukocytosis, normocytic anemia. Chemistry panel showed mild acidosis with bicarb 19.4. Elevated ALP 383. Patient denied any abdominal pain. Recommended to continue IV antibiotic therapy for community-acquired pneumonia infection. Suggested to perform CTA abdomen to rule out mesenteric bowel ischemia. Recommended to discontinue fluids due to concern for fluid overload. No diuretic therapy recommended for now given lactic acidosis. Suggested to discontinue Plavix and antihypertensive. EGD showed esophageal ulcers at the GE junction, nonerosive gastritis, erythematous duodenopathy and GI specialist recommended to continue IV Protonix. Will likely follow on CTA abdomen results. All labs and orders were reviewed. 07/09/2024: Patient was seen and examined at the bedside. Patient underwent pericardiocentesis for pericardial effusion today performed by Dr. Spencer, financial reserve clerk. Patient has been feeling a lot better since then. Vitals have been stable with mild tachycardia. Labs showed uptrending leukocytosis, stable hemoglobin. Chemistry panel showed mild hyponatremia. BUN 28. Lactic acid downtrending to 2.5. Elevated transaminases. Patient will be closely follow-up and pericardial catheter will be removed once fluid<50 cc. Continue IV Levaquin for treating infection. Will closely monitor for chest pain or shortness of breath. Continue metoprolol succinate 50 mg Once a day. repeated echocardiogram to evaluate post pericardiocentesis. All labs and orders were reviewed. 07/10/24: Patient was seen and examined at the bedside. Patient appears to be SOB and tachycardiac. Vitals shows tacycardia HR 140s EKG was consistent with A Fib with Rvr.Repeat Echo showed re-accumulation of fluid in pericardial space. Labs shows significant improvement in white count stable Hgb, Lactic acid was downtrending, Liver enzymes mildly improved.Echo showed There is a moderate circumferential pericardial effusion. We recommended to start amiodarone drip per protocol and will remove another 100 cc Pericardial fluid.Rest of the management remains same. 07/11/2024: Patient was seen and examined at the bedside. Patient appears to be mildly short of breath and was tachypneic with a respiratory rate 30. He seemed to be hypotensive with blood pressure 88/66. Saturating 96% on 6 L NC. Labs revealed leukocytosis with white count 14.1, hemoglobin 11.7. Chemistry panel unremarkable. BUN and creatinine stable. Liver functions downtrending. Pending MRI abdomen with/without contrast. Primary team gave Lasix 40 mg IV x 1. Removed 300 cc pericardial fluid today. Agreeable to give Lasix 40 x 1. Will switch amiodarone IV to p.o. 200 mg once a day from tomorrow. All labs and orders were reviewed. Close monitoring of vitals. 07/12/2024: Patient was seen and examined at the bedside. Patient had multiple episodes of rapid heart rate in night team was called.Vitals showed blood pressure 102/68, heart rate 127, tachypnea RR 21 and afebrile. He was saturating 98% on 4 L nasal cannula. Labs revealed white count 15.5, hemoglobin 12.7. Chemistry panel showed mild hypokalemia. Kidney function stable. Liver enzymes slightly improved. Troponin I downtrending. Pericardial fluid cytology showing adenocarcinoma. Recommended to start another bag o amiodarone drip for rate control. Electrolytes were repleted. Family will be updated regarding the plan. Primary team started Lasix 40 IV twice daily due to fluid overload state and patient showed diuresis output of 4 L with negative balance of 3 L. GI to perform another EGD given concern for adenocarcinoma of the stomach All labs and orders were reviewed. 07/13/2024: Patient was seen and examined at the bedside. Pericardial fluid 100 cc was removed from pericardial catheter. Will keep pericardial catheter for 1 more day and evaluate tomorrow morning if fluid remains less than 50 cc we will remove the catheter. Initial plan was to place pericardial balloon catheter however will assess the patient tomorrow morning. Heart rate remains controlled. Labs showed leukocytosis, hemoglobin 12.2. Chemistry panel showed potassium 3.4. Bicarb 35.5. Liver enzymes downtrending. Diamox and KCl 40 mEq given x 1. Diamox was given for contraction alkalosis. Reduced Lasix to 40 mg once a day. Continue current management. All labs and orders were reviewed. 07/14/2024: Patient was seen and examined at the bedside. Patient had consistently elevated heart rate in 130s. Blood pressure 118/73. He was saturating 93% 1 L NC. Labs were ordered. Removed 25 cc pericardial fluid today. Will likely remove catheter tomorrow. Recommended to continue Lasix 40 mg once a day, continue metoprolol succinate 50 mg twice daily now as heart rate remains uncontrolled and continue amiodarone 200 mg once a day. All labs and orders were reviewed. 07/16/2026: Patient was seen and examined at the bedside. Vitals showed blood pressure stable heart rate controlled 80 bpm and saturating 90% on room air. Labs revealed leukocytosis, stable hemoglobin and platelets. Chemistry panel showed sodium 136 and potassium 3.8. LFTs showed ALT 67 ALP 745. Primary team planning to discharge the patient today and he will need follow-up with outpatient oncologist for further evaluation. We are agreeable to the plan and discharging on p.o. amiodarone 200 mg once a day, Lasix p.o. 40 mg once a day and metoprolol succinate XL 50 twice daily. Patient had removal of pericardial catheter yesterday and does not need to be having a pericardial balloon catheter as there was less than 25 cc pericardial fluid in the pericardial space. No anticoagulation recommended given high risk of bleeding. Agreeable to the rest of the management as per primary care team. Exam Vital Signs Temp Pulse Resp BP Pulse Ox O2 Del Method O2 Flow Rate 97.5 F 85 20 127/66 90 L Room Air 1 07/16/24 08:00 07/16/24 08:13 07/16/24 08:00 07/16/24 08:13 07/16/24 08:00 07/16/24 08:00 07/16/24 06:29 Narrative Exam GENERAL: A&Ox3 . Awake, Not in acute distress, saturating well on RA HEENT: Atraumatic, Normocephalic. mucous membranes moist. Eyes open, symmetrical, & clear. No JVD HEART: Irregular rate and irregular rhythm rate controlled. S1/S2. No murmurs rubs or gallops. LUNGS: Clear to auscultation. Tachypneic. ABDOMEN: soft, non-distended, non-tender, bowel sounds heard, no guarding or rebound tenderness SKIN: No Rash or ecchymoses EXTREMITIES: No edema, tenderness, able to move all 4 extremities, pedal pulses palpated. NEURO: dry pan feeder grossly intact, moves extremities x4 Psych: Appropriate mood and affect. Objective Labs 07/16/24 05:13 07/16/24 05:13 Labs: Laboratory Results - last 24 hr 07/16/24 05:13 WBC 11.2 H RBC 4.16 L Hgb 12.0 L Hct 37.4 L MCV 90 MCH 28.8 MCHC 32.1 RDW Std Deviation 47.3 H Plt Count 175 Neut % (Auto) 72 Lymph % (Auto) 10 [place] % (Auto) 11 Eos % (Auto) 3 Baso % (Auto) 1 Neut # (Auto) 8.1 H Lymph # (Auto) 1.1 [place] # (Auto) 1.2 H Eos # (Auto) 0.3 Baso # (Auto) 0.2 Immature Gran # (Auto) 0.33 H Absolute Nucleated RBC 0.00 Immature Gran % 3 H Nucleated RBC % 0 Sodium 136 Potassium 3.8 Chloride 97 L Carbon Dioxide 30.7 Anion Gap 8 BUN 11 Creatinine 0.5 L Estim Creat Clear Calc 124.9 eGFR > 60 BUN/Creatinine Ratio 22 H Glucose 104 Calculated Osmolality 271 L Calcium 9.0 Corrected Calcium 9.5 Phosphorus 2.5 Magnesium 2.0 Total Bilirubin 0.5 AST 29 ALT 67 H Alkaline Phosphatase 745 H D Total Protein 5.6 L Albumin 3.4 Globulin 2.2 L Albumin/Globulin Ratio 1.5 ABG Interpretation ABG results: 07/08/24 10:35 ABG pH 7.26 L ABG pCO2 39 ABG pO2 71 L ABG HCO3 17 L ABG O2 Saturation 93 ABG Base Excess -9 L Quality Measures Quality Measures VTE prophylaxis (SCDs) Advance care planning discussed with:: patient Assessment & Plan Assessment Current Active Medications: Generic Name Dose Route Start Last Admin Trade Name Freq PRN Reason Stop Dose Admin Acetaminophen 650 mg 07/06/24 09:34 Acetaminophen Supp 650 Mg Supp ND 08/04/24 16:55 Q6HR PRN FEVER>101.5 Acetaminophen 650 mg 07/13/24 13:33 07/16/24 07:00 Acetaminophen 325 Mg Tablet PO 08/12/24 13:32 650 mg Q6HR PRN Administration PAIN Albuterol/Ipratropium 3 ml 07/05/24 22:00 07/05/24 23:45 Albuterol/Ipratropium (Duoneb) Rt Zamzam 3 Ml Nebu INH 08/04/24 21:59 3 ml Q2HR PRN Administration SHORTNESS OF BREATH OR WHEEZE Amiodarone HCl 200 mg 07/12/24 09:00 07/16/24 08:13 Amiodarone Hcl 200 Mg Tablet PO 08/11/24 08:59 200 mg QDAY JADE Administration Finasteride 5 mg 07/08/24 21:00 07/15/24 20:50 Finasteride 5 Mg Tablet PO 08/07/24 20:59 5 mg HS JADE Administration Furosemide 40 mg 07/17/24 09:00 Furosemide 40 Mg Tablet PO 08/16/24 08:59 QDAY JADE Melatonin 3 mg 07/05/24 21:10 07/05/24 21:48 Melatonin 3 Mg Tablet PO 08/05/24 20:59 3 mg HS PRN Administration insomnia Metoprolol Succinate 50 mg 07/14/24 21:00 07/16/24 08:13 Metoprolol Succinate Xl 25 Mg Tabcr PO 08/13/24 20:59 50 mg BID JADE Administration Nicotine 14 mg 07/05/24 16:45 07/16/24 08:13 Nicotine Patch 14 Mg/24 Hr Patch.Td24 TOP 08/04/24 16:44 14 mg QDAY JADE Administration Ondansetron HCl 4 mg 07/05/24 16:56 Ondansetron Inj 2 Mg/Ml Inj 2 Ml IV 08/04/24 16:55 Q6H PRN NAUSEA OR VOMITING Protocol Pantoprazole Sodium 40 mg 07/12/24 09:30 07/16/24 08:11 Pantoprazole Inj 40 Mg Vial IV 08/11/24 09:29 40 mg BID JADE Administration Sennosides 1 tab 07/05/24 16:56 Senna Tablet PO 08/04/24 16:55 QDAY PRN constipation Protocol Trazodone HCl 100 mg 07/05/24 21:00 07/15/24 20:50 Trazodone Hcl 50 Mg Tablet PO 08/04/24 20:59 100 mg HS JADE Administration Plan This 74-year-old male with past medical history significant for hypertension, CAD s/p PCI, 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 Chest x-ray showed prominent diffuse right lung pneumonia and isolated scattered nodular opacities in the left lung. EKG showed sinus tachycardia, RBBB with heart rate 129. # Pericardial effusion post pericardiocentesis # Likely secondary to gastric adenocarcinoma/metastatic malignancy ? Patient was found to have large pericardial effusion seen on CTA imaging. ? Patient is feeling a lot better and less short of breath. ? Repeat Echo showed re-accumulation of fluid in pericardial space ? Pericardiocentesis performed today by financial reserve clerk Dr. 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 Biopsy result awaiting. Oncology team has been consulted for further evaluation. ? Removed 100 cc pericardial fluid from pericardial catheter plan to remove catheter tomorrow morning if fluid remains less than 50 cc ? Remove 25 cc pericardial fluid on 07/14 and 07/15 Plan: ?Pericardial catheter removed and does not need to be placed on pericardial balloon catheter given pericardial fluid less than 25 cc ? Pain management as needed # Contraction alkalosis likely due to diuretic, resolved ? Bicarb 35.5 ?Diamox was given x 1 #New Onset Atrial Fibrillation, RVR ? Patient had a rapid heart rate. EKG showed A Fib with Rvr HR in 140s. ? [id number] score 3 ?No anticoagulation given due to high risk of bleeding with underlying malignancy and GI bleed recently due to esophageal ulcer seen on EGD ?Amio drip was completed. Plan: ? No anticoagulation recommended due to high risk of bleeding given new onset A- fib ? Recommended to continue metoprolol succinate 50 mg 2 times a day ? Continue amiodarone 200 mg p.o. daily ? Keep Mag above 2 and K above 4 ? Monitor for chest pain and SOB # NSTEMI type II likely supply demand ischemia ?Troponin I 0.094 -->0.07 Plan: ? Troponin I downtrended ?Continue to monitor for signs of chest pain or shortness of breath # CAD post stents on Plavix # Orthostatic hypotension # History of hypertension # HFpEF EF 55% ?Patient admitted for GI bleed workup. Presenting with black tarry stool. GI specialist following the case. Cardiology team consulted for recurrent hypotension episodes and for anticoagulation management. ? Patient is not complaining of chest pain or shortness of breath. Troponin I was negative. ? Echo showed that There is a moderate circumferential pericardial effusion. There is TV respiration variation and RA collapse. Normal LV size and function. Estimated EF 55%. Mild RV dilation. Normal RV function. Severe RA dilation Mild AV sclerosis without stenosis. Trace TR. left pleural effusion present. ?EGD showed nonerosive gastritis and esophageal ulcers. ?Patient's urine output 4 L with negative balance of 3 L Plan: ? Continue Lasix to 40 mg once a day and monitor strict BACILIO's, fluid restriction Daily weight ? Recommended to discontinue Plavix and stop antihypertensives ? Continue metoprolol succinate 50 mg twice daily and amiodarone 200 mg once a day ? Continue Protonix 40 mg IV twice daily ? Treating underlying sepsis due to right-sided community-acquired pneumonia with antibiotics ? Monitor vitals closely ? 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 Cystitis. Plan ? EGD showed esophageal adenocarcinoma at the GE junction. Oncology consulted for further evaluation ? Oncology, Dr. Guevara was consulted for further evaluation Other active problems: #Esophageal ulcers per EGD finding #Nonerosive gastritis #Sepsis likely secondary to #Right-sided community-acquired pneumonia # Lactic acidosis type B #Normocytic hypochromic anemia #Leukocytosis # Thrombocytopenia #Orthostatic hypotension #Acute anemia in the setting of #GI bleed-likely upper #Depression #BPH #History of CVA -- Rest of the management as per primary care team. Thank you very much for consulting cardiology team.switch to p.o. amiodarone 200 mg once a day, continue metoprolol to 50 mg twice daily. No anticoagulation recommended given high risk of bleeding. Agreeable to discharge the patient today and stable from cardiology standpoint. Plan of care discussed with financial reserve clerk, Dr. Tj Eden MD, PGY 2
--- NOTE | 2024-07-16 10:53 | PC.SS ---
Update: D/C plan is home with home health services.
[2024-07-16] MEDS: LIDOCAINE 5% 1 PATCH TOP (12:11)
--- NOTE | 2024-07-16 14:23 | PC.SS ---
Rounding Note: D/C plan is home with home health.
--- NOTE | 2024-07-16 15:45 | PC.NURSE ---
o2 sat on room air at rest 87%.
--- NOTE | 2024-07-16 15:49 | PC.SS ---
OXYGEN Pt is discharged in a chronic stable state and has been treated optimally and has other respiratory needs. Oxygen has been ordered due to COPD.
--- NOTE | 2024-07-16 16:09 | PC.SS ---
Oxygen referral submitted on [facility]. A waiting response. Plan is for the patient to d/c home today.
--- NOTE | 2024-07-16 16:15 | ESDS_ITS ---
<Statement entered by Rafaela Ngo DO - 07/17/24 15:40> I, Rafaela Ngo DO, attest that I was physically present for the leyva portions of the service and evaluated the patient with the resident and I reviewed and discussed the case with the resident and agree with the resident's findings and plans of care as documented above Planned Discharge Date 07/16/24 DS: Providers Provider Date of admission: 07/05/24 12:45 Primary care physician: Phuc Sotelo MD Admitting Provider: Omkar Aceves MD Attending Provider on Admission: Rafaela Ngo DO Consults: 07/05/24 12:38 Consult to Gastroenterology Stat Comment: Consulting Provider: Avis Malave 07/06/24 11:24 Consult to Cardiology Stat Comment: Consulting Provider: Vinicio Spencer 07/08/24 09:24 Consult to General Surgery Stat Comment: suspected ischemic colitis Consulting Provider: Debra Danielson 07/10/24 15:42 Referral Wound Care Routine Comment: 07/13/24 11:28 Consult to Oncology Stat Comment: gastric adenocarcinoma Consulting Provider: Desmond Guevara 07/15/24 09:53 Referral Physical Therapy Stat Comment: Physician Instructions: Attending Provider on DC: Tanner Rodriguez MD Discharging Provider: Tanner Rodriguez MD DS: Diagnosis Problem List Completed Was Problem List Reviewed/Reconciled?: Yes Hospital Course Hospital Course Hospital course: Mr. 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 Patient also had shortness of breath, cough with phlegm and chest congestion for the past 2 weeks for which he was taking antibiotics prescribed by the PCP. Patient also had lost approximately 14 pounds in the last 4 months. Chest x-ray showed prominent diffuse right lung pneumonia and isolated scattered nodular opacities in the left lung. EKG findings showed sinus tachycardia with heart rate 129. Patient was started on Rocephin and doxycycline for the management of pneumonia. First day of hospitalization patient had a rapid response for hypotension, senior internal auditor was consulted and per Dr. Spencer's recommendation Plavix was discontinued and antihypertensive drugs were held. EGD findings were consistent with esophageal ulcers at the [facility], and findings were consistent with moderate gastritis however no biopsies were taken at this point because increased risk of bleeding due to patient was on Plavix at the time of EGD. patient's lactic acid was uptrending over the next couple days therefore per Dr. Spencer's recommendations CTA of the abdomen was ordered. CTA findings are consistent with pericardial effusions and bedside echo performed by Dr. Spencer showed significant pericardial effusion with tamponade. Pericardiocentesis was performed and 800 cc of fluid was removed the first day and the second day additional 300 cc of fluid was removed, the third time approximately 25 cc of fluid was removed and decision to remove the pericardial cath was made. Patient became very tachycardic with heart rate ranging from 140s to 160s for several days and patient was diagnosed with A-fib and A-flutter with RVR therefore amiodarone drip was started which was eventually transition to amiodarone p.o. and patient was also given beta-tonie for rate control. patient was also found to have elevated liver enzymes in the setting of history of hepatitis C for which he completed treatment but no follow-up and ultrasound of the liver showed multiple liver lesions and MRI was unsuccessful on multiple attempts because patient was unable to lie down flat for 30 minutes due to SOB requiring oxygen. Pericardial effusion cytology was p ositive for malignant cells likely poorly differentiated adenocarcinoma likely metastasis of the diffuse form of gastric adenocarcinoma. Oncologist Dr. Guevara was consulted and another EGD was ordered by Dr. Malave for biopsy. Currently biopsy results are still pending patient is to follow outpatient with Dr. Guevara for biopsy results and further management and plan. patient is now hemodynamically stable, saturating on room air, with PT clearance and ready to be discharged home. Patient is strongly advised if his symptoms worsen to promptly return to the ED. Start taking amiodarone 1 tab daily, Lasix 1 tab daily and metoprolol 50 mg twice daily. Stop taking Plavix, Lotensin, amlodipine. Continue taking other home medications as prescribed. Follow up with cardiology Dr. Spencer, Follow up with oncology Dr. Guevara for EGD gastric biopsy results Follow up with PCP within 2 weeks. Return to the ED if symptoms recur or worsen. #Acute hypoxic respiratory failure # Malignant pericardial effusion s/p pericardiocentesis and drain placement. # Fluid overload in the setting of CHF exacerbation #Pericardial Tamponade, resolved. #Suspected metastatic adenocarcinoma #Diffuse gastric adenocarcinoma #Sepsis 2/2 #Right-sided pneumonia. #Lactic acidosis #Orthostatic hypotension-resolved # Bilateral lower extremity edema # A-fib with RVR # A flutter with RVR # Troponinemia #Acute liver failure. #History of Hepatitis C Assessment and plan discussed with my senior resident Dr. Dixon & attending physician Dr. Huber Rodriguez (PGY-1)- Internal medicine resident Time Spent with Patient Time attestation: Total time spent providing and/or coordinating discharge services: >35min Exam Vital Signs Temp Pulse Resp BP Pulse Ox O2 Del Method O2 Flow Rate 98.2 F 86 24 H 126/62 92 L Room Air 1 07/16/24 12:00 07/16/24 15:59 07/16/24 14:00 07/16/24 12:00 07/16/24 14:00 07/16/24 12:00 07/16/24 14:00 Narrative Exam GENERAL: A&Ox3 . Awake, Not in acute distress, patient is very short of breath NEURO: advanced practice nurse psychotherapist grossly intact, moves extremities x4 HEENT: Atraumatic, Normocephalic. mucous membranes moist. Eyes open, symmetrical, & clear HEART: Normal Heart Sounds, Pericardial catheter removed on 07/15/24 LUNGS: Clear to auscultation ABDOMEN: soft, non-distended, non-tender, bowel sounds heard, no guarding or rebound tenderness SKIN: No Rash or ecchymoses EXTREMITIES: trace pitting edema, no tenderness, able to move all 4 extremities Discharge Plan Plan Patient Disposition: HOME (Self Care) Patient condition on transfer: Stable Care Plan Goals: Start taking amiodarone 1 tab daily, Lasix 1 tab daily and metoprolol 50 mg twice daily. Stop taking Plavix, Lotensin, amlodipine. Continue taking other home medications as prescribed. Follow up with cardiology Dr. Spencer, Follow up with oncology Dr. Guevara for EGD gastric biopsy results Follow up with PCP within 2 weeks. Return to the ED if symptoms recur or worsen. Prescriptions/Referrals Prescriptions/Med Rec: New amiodarone 200 mg Tablet 200 mg PO QDAY Qty: 30 0RF metoprolol succinate 25 mg Tablet Extended Release 24 Hr 50 mg PO BID Qty: 60 0RF furosemide 40 mg tablet 40 mg PO QAM Qty: 30 0RF lidocaine 5 % adhesive patch,medicated 1 patch topical QDAY Qty: 30 0RF Rx Instructions: leave on most painful area for up to 12 hrs Continued citalopram [Celexa] 40 MG tablet 40 mg PO QDAY Qty: 0 famotidine [Pepcid] 20 MG tablet 20 mg PO QAM Qty: 0 Patient Comments: TO SUPPRESS GASTRIC ACID SECRETION Trazodone * (DESYREL *) 100 MG tablet 100 mg PO HS Qty: 0 Rx Instructions: per patient stop,while taking azithromycin antibiotic antibiotic. mirtazapine 15 mg tablet 15 mg PO HS finasteride 5 mg tablet 5 mg PO HS Patient Comments: TAKE 1 TABLET BY MOUTH DAILY rosuvastatin 40 mg tablet 40 mg PO HS Patient Comments: TAKE 1 TABLET BY MOUTH EVERY EVENING tamsulosin 0.4 mg Capsule 0.4 mg PO QDAY Discontinued clopidogrel [Plavix] 75 MG tablet 75 mg PO QDAY Qty: 0 benazepril [Lotensin] 40 MG tablet 40 mg PO QDAY Qty: 0 metoprolol succinate 50 mg tablet extended release 24 hr 50 mg PO DAILY Patient Comments: TAKE 1 TABLET BY MOUTH DAILY FOR HIGH BLOOD PRESSURE amlodipine 10 mg tablet 10 mg PO HS Patient Comments: TAKE 1 TABLET BY MOUTH DAILY Referrals: Phuc Sotelo MD [Primary Care Provider] - Desmond Guevara MD [Physician] - Vinicio Spencer MD [Physician] - Patient/Caregiver Discharge Instructions Education Materials: Bleeding Gastrointestinal, What Is Syncope?, When You Have Pneumonia Print Language: Vietnamese Stand Alone Forms: Blanca Award Info., Patient Portal Info Letter Discharge Order Discharge Orders: Discharge (Routine); Ordered 07/16/24 Ordered By: Ilir Dixon Quality Discharge Quality Measures VTE therapy
--- NOTE | 2024-07-16 21:38 | PD.IMPROG ---
Documentation for date of: 07/16/24 Subjective Subjective Interval history: Late entry for the note Case discussed with internal medicine team Spoke with the pathologist GE junction biopsies are positive for adenocarcinoma Patient will be followed as an outpatient with oncology Okay to discharge patient home Exam Vital Signs Temp Pulse Resp BP Pulse Ox O2 Del Method O2 Flow Rate 98.5 F 86 22 H 150/73 H 96 Nasal Cannula 1 07/16/24 17:46 07/16/24 17:46 07/16/24 17:46 07/16/24 17:46 07/16/24 17:46 07/16/24 17:46 07/16/24 17:46 Objective Labs 07/16/24 05:13 07/16/24 05:13 Labs: Laboratory Results - last 24 hr 07/16/24 05:13 WBC 11.2 H RBC 4.16 L Hgb 12.0 L Hct 37.4 L MCV 90 MCH 28.8 MCHC 32.1 RDW Std Deviation 47.3 H Plt Count 175 Neut % (Auto) 72 Lymph % (Auto) 10 [place] % (Auto) 11 Eos % (Auto) 3 Baso % (Auto) 1 Neut # (Auto) 8.1 H Lymph # (Auto) 1.1 [place] # (Auto) 1.2 H Eos # (Auto) 0.3 Baso # (Auto) 0.2 Immature Gran # (Auto) 0.33 H Absolute Nucleated RBC 0.00 Immature Gran % 3 H Nucleated RBC % 0 Sodium 136 Potassium 3.8 Chloride 97 L Carbon Dioxide 30.7 Anion Gap 8 BUN 11 Creatinine 0.5 L Estim Creat Clear Calc 124.9 eGFR > 60 BUN/Creatinine Ratio 22 H Glucose 104 Calculated Osmolality 271 L Calcium 9.0 Corrected Calcium 9.5 Phosphorus 2.5 Magnesium 2.0 Total Bilirubin 0.5 AST 29 ALT 67 H Alkaline Phosphatase 745 H D Total Protein 5.6 L Albumin 3.4 Globulin 2.2 L Albumin/Globulin Ratio 1.5 Impressions Impression: # GE junction adenocarcinoma # Some dysphagia secondary to 1 Outpatient follow-up Follow-up with oncology ABG Interpretation ABG results: 07/08/24 10:35 ABG pH 7.26 L ABG pCO2 39 ABG pO2 71 L ABG HCO3 17 L ABG O2 Saturation 93 ABG Base Excess -9 L Assessment & Plan A&P Narrative 1. 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 Status post pericardiocentesis to alleviate tamponade problem 2.Endoscopy suggests adenocarcinoma extending from the GE region towards the cardiac and the fundic portion of the stomach. Biopsy results pending. Additional imaging studies also pending. 3. Significant weight loss with possible need for artificial feeding support. Dietary following patient 4. Spoke with family regarding checking for immunotherapy and targeted therapy molecular markers along with HER2/giovanni to provide additional tools that may be employed in this obviously serious malignancy case. 5. Will follow. Thank you for allowing me to evaluate this case. Time Spent With Patient Time: Total time spent is greater than 50% in coordination of care (as documented) at patient's floor/unit and/or counseling patient:
== END 2024-07-16 17:42 | disposition home or self-care (01) | DRG 871 ==
LOC: SERX 12:36 → SERHOLD 13:13 → S3SX 15:07 → S2NX 07-07 22:58
PROVIDERS: Internal Medicine; Internal Medicine Cardiovascular Disease; Nurse Practitioner Primary Care; Specialist; Student in an Organized Health Care Education/Training Program; Admitting Provider Student in an Organized Health Care Education/Training Program; Emergency Provider Emergency Medicine; PCP Family Medicine; Visit Provider Internal Medicine
PROC: 0DJ08ZZ Inspection of Upper Intestinal Tract, Via Natural or Artificial Opening Endoscopic (ICD-10-PCS; CPT 43239; principal; 2024-07-06 15:30)
PROC: 0W9D30Z Drainage of Pericardial Cavity with Drainage Device, Percutaneous Approach (ICD-10-PCS; principal; 2024-07-09 10:00)
PROC: 0DB48ZX Excision of Esophagogastric Junction, Via Natural or Artificial Opening Endoscopic, Diagnostic (ICD-10-PCS; CPT 43239; principal; 2024-07-12 19:30)
DX: A41.9 Sepsis, unspecified organism (principal); I21.A1 Myocardial infarction type 2; J18.9 Pneumonia, unspecified organism; K25.4 Chronic or unspecified gastric ulcer with hemorrhage; K29.61 Other gastritis with bleeding; J96.01 Acute respiratory failure with hypoxia; K72.00 Acute and subacute hepatic failure without coma; I50.33 Acute on chronic diastolic (congestive) heart failure; J44.0 Chronic obstructive pulmonary disease with (acute) lower respiratory infection; D62 Acute posthemorrhagic anemia; C16.0 Malignant neoplasm of cardia; C79.89 Secondary malignant neoplasm of other specified sites; E87.1 Hypo-osmolality and hyponatremia; E87.4 Mixed disorder of acid-base balance; I31.31 Malignant pericardial effusion in diseases classified elsewhere; I31.4 Cardiac tamponade; R18.8 Other ascites; I48.92 Unspecified atrial flutter; I25.10 Atherosclerotic heart disease of native coronary artery without angina pectoris; E86.0 Dehydration; N40.0 Benign prostatic hyperplasia without lower urinary tract symptoms; B19.20 Unspecified viral hepatitis C without hepatic coma; K31.89 Other diseases of stomach and duodenum; I69.334 Monoplegia of upper limb following cerebral infarction affecting left non-dominant side; F32.A Depression, unspecified; I11.0 Hypertensive heart disease with heart failure; I45.10 Unspecified right bundle-branch block; K74.60 Unspecified cirrhosis of liver; K76.9 Liver disease, unspecified; K80.20 Calculus of gallbladder without cholecystitis without obstruction; I95.1 Orthostatic hypotension; D69.6 Thrombocytopenia, unspecified; E87.5 Hyperkalemia; I48.0 Paroxysmal atrial fibrillation; F17.210 Nicotine dependence, cigarettes, uncomplicated; Z95.5 Presence of coronary angioplasty implant and graft; Z79.899 Other long term (current) drug therapy
CPT/HCPCS: 36415; 36430; 36600; 71045; 74174; 76705; 80053; 80069; 80074; 81001; 82150; 82550; 82803; 82945; 83605; 83615; 83690; 83735; 83880; 84100; 84132; 84157; 84484; 85014; 85018; 85025; 85610; 85730; 86331; 86635; 86850; 86900; 86901; 86923; 87040; 87070; 87086; 87205; 87400; 87522; 87811; 89051; 93005; 93225; 93306; 94640; 94664; 94762; 97162; 99152; 99153; 99291; A4649; A9270; C1729; C1769; J0171; J0283; J0461; J0612; J0696; J1120; J1160; J1200; J1815; J1940; J1956; J2250; J2310; J2371; J2470; J3010; J3475; J3490; J7030; J7050; J7120; P9016; Q9967

== ENCOUNTER 2024-08-01 08:14 | Outpatient (CLI) | payer MEDICARE, BC, SELFPAY ==
[2024-07-30 10:31] VITALS: BMI 18.3
[2024-07-31 10:40] LABS: Basophils # (Auto) 0.1 Thou/mm3 (0.0-0.2); Basophils % (Auto) 1 % (0-2.5); Eosinophils # (Auto) 0.2 Thou/mm3 (0.0-0.5); Eosinophils % (Auto) 2 % (0-10); Hematocrit 44.4 % (41.0-53.0); Hemoglobin 14.4 g/dL (13.5-16.0); Immature Granulocytes % (Auto) 6 % (0-0); Immature Granulocytes Auto 0.56 Thou/mm3 (0.00-0.00); Lymphocytes # (Auto) 1.1 Thou/mm3 (1.0-4.8); Lymphocytes % (Auto) 11 % (10-50); Mean Corpuscular HGB Conc 32.4 g/dl (31.0-37.0); Mean Corpuscular Hemoglobin 29.1 pg (25.0-35.0); Mean Corpuscular Volume 90 fL (80-100); Monocytes # (Auto) 1.1 Thou/mm3 (0.0-0.8); Monocytes % (Auto) 10 % (0-12); Neutrophils # (Auto) 7.3 Thou/mm3 (1.8-7.7); Neutrophils % (Auto) 71 % (37-80); Nucleated Red Blood Cell # 0.02 Thou/mm3 (0.00-0.00); Nucleated Red Blood Cell % 0 /100 WBC (0); Platelet Count 275 Thou/mm3 (140-440); RDW Standard Deviation 51.3 fL (35.1-43.9); Red Blood Count 4.95 Miln/mm3 (4.50-5.90); White Blood Count 10.3 Thou/mm3 (3.8-10.6)
[2024-07-31 10:52] LABS: Blood Urea Nitrogen 27 mg/dL (9-23); Creatinine (Component) 0.9 mg/dL (0.6-1.3); Estimated Creatinine Clearance 58.2 mL/min (>60); eGFR > 60 See Note
[2024-07-31 11:20] LABS: INR 1.1 (0.9-1.3); Partial Thromboplastin Time 25.3 Seconds (22.0-36.0); Prothrombin Time 11.8 Seconds (9.0-12.2)
[2024-08-01] VITALS (7 sets, daily range): BP systolic 83–115; BP diastolic 60–71; PULSE 90–133; RESP 17–21; TEMP 36.4–37.2; O2SAT 92–95
--- NOTE | 2024-08-01 09:00 | XR_ITS ---
Examination: IR venous implantation Port-A-Cath Ultrasound-guided needle placement right internal jugular vein. Fluoroscopy AP Chest, portable single view Exam date and time: August 01, 2024 0924 hours INDICATIONS: Diagnosis esophageal carcinoma requiring long-term intravenous chemotherapy. Informed consent provided Technique: A timeout was completed, verifying correct patient, procedure, site, positioning, and special equipment if applicable The patient was placed in a dependent position appropriate for central line placement based on the vein to be cannulated. The patient's right neck was prepped and draped in sterile fashion. Maximum Sterile Barrier Technique used including cap, mask, sterile gown, sterile gloves, and sterile full body drape. If ultrasound technique used: sterile gel and sterile probe covers. Hand Hygiene performed using proper scrub, soap and water, or alcohol-based hand rub. Site right portable apparatus utilized to confirm patency right internal jugular vein, utilizing ultrasonographic guidance successful 21-gauge needle puncture into the right internal jugular vein Ultrasound images were recorded and stored. Successful micropuncture with a 21-gauge needle was performed. 0.18 wire guide was introduced into the IVC under fluoroscopic guidance. The wires is then exchanged for a 0.25 J-wire guide placed in the vena cava. Utilizing blunt dissection Port-A-Cath pocket formed in the upper right chest, Port-A-Cath reservoir placed in the pocket connected to 21 cm 8 [place] Port-A-Cath line in place to a venous sheath into the superior vena cava in proper position The attending radiologist was present for the entire procedure Estimated blood loss2 cc. Findings: Under fluoroscopy, the tip of the catheter is in good position in the vena cava. Portable chest x-ray, post Port-A-Cath placement, as ordered. Impression: Successful ultrasound-guided needle placement right internal jugular vein. Successful IR venous implantation Port-A-Cath Fluoroscopy 0.3 minute radiation dose 15.23 milligray 1 spot fluoroscopic chest film. AP portable chest completion procedure demonstrates satisfactory position Port-A-Cath tip SVC. May use Port-A-Cath
[2024-08-01] MEDS: HEPARIN SOD LOCK SYR 100 UNIT/ML 500 UNIT STFIELD (09:30)
[2024-08-01] MEDS: ceFAZolin INJ 1 GM VIAL STFIELD (09:30)
[2024-08-01] MEDS: ceFAZolin 1 GM in SODIUM CHLORIDE 0.9% 100 ML IV (09:40)
[2024-08-01] MEDS: fentaNYL CIT INJ 50 mCg/ML AMP 2ML 25 MCG IVP (10:17)
[2024-08-01] MEDS: LIDOCAINE INJ PF 1% 5 ML VIAL INFL (10:19)
[2024-08-01] MEDS: LIDOCAINE 1% W/EPI 1:100K 20 ML VIAL 6 ML INFL (10:19)
== END 2024-08-01 11:30 | disposition home or self-care (01) ==
PROVIDERS: Radiology Diagnostic Radiology; PCP Family Medicine; Referring Provider Radiology Therapeutic Radiology; Visit Provider Radiology Therapeutic Radiology
DX: C16.9 Malignant neoplasm of stomach, unspecified (principal); C15.5 Malignant neoplasm of lower third of esophagus; Z01.812 Encounter for preprocedural laboratory examination
CPT/HCPCS: 36558; 36415; 76937; 77001; 82565; 84520; 85025; 85610; 85730; C1769; C1788; C1894; J0690; J1642; J3010; J3490; J7050

== ENCOUNTER → 2024-08-10 | Outpatient (CLI) | payer MEDICARE, BC, SELFPAY ==
--- NOTE | 2024-08-10 11:45 | XR_ITS ---
Examination: IR staple removal Port-A-Cath insertion site Exam date and time: 03/10/2024 1145 hours INDICATIONS: Port-A-Cath placement August 01, 2024, patient returns for removal of staple closure devices TECHNIQUE AND FINDINGS: Informed consent provided. Timeout performed. Skin prepped over the Port-A-Cath incision site and sterile drape applied hand hygiene Careful removal of the imlagros at bedside Estimated blood loss 0 cc IMPRESSION: Successful IR staple removal Port-A-Cath insertion site
--- NOTE | 2024-08-10 13:15 | PC.NURSE ---
11 milagros removed. Skin CDI. covered with bandage for patient comfort.
== END | disposition home or self-care (01) ==
PROVIDERS: PCP Family Medicine; Referring Provider Radiology Therapeutic Radiology; Visit Provider Radiology Therapeutic Radiology
DX: Z48.02 Encounter for removal of sutures (principal)

== ENCOUNTER 2024-08-13 08:42 | Outpatient (RCR) | payer MEDICARE, BC, SELFPAY ==
--- NOTE | 2024-07-24 15:26 | CTCCONSULT_ITS ---
[facility] [address] [place], [place] [address] Consultation Note Date: 07/24/2024 MR#: [id number] Name: JUAN ANTONIO COELLO : 1950 Dx: C16.9 Malignant neoplasm of stomach, unspecified Attending physician. Phuc Sotelo MD Reason for consultation. Patient with diagnosis of gastric CA with GE obstruction and pericardial in volvement referred to the cancer center. History of Present Illness: Patient unfortunate 74-year-old gentleman who was admitted a week ago wit h abdominal pain GI bleeding and CT scan 07/07/2024 with pericardial effusion measuring up to 30 mm w ith suspicions for early small bowel ischemia. Underwent pericardiocentesis with drain placement with pericardial fluid positive for malignancy poorly differentiated adenocarcinoma. Accordi ng to pathologist Dr. Sanchez pathologist at [place], majority of cells in sample with various stainin g favor diffuse form of gastric carcinoma. HER2 negative. Endoscopy formed by Dr. Malave 07/12/2024 r evealed partially obstructing likely malignant esophageal tumor found the GE junction, with biopsy re vealing poorly fitted adenocarcinoma staining for CK7 similar to the pericardial fluid. The op note also mentioned that the mass was partially obstructing and circumferential and seeming extending more toward a cardiac in the fundic portion of the stomach also seen in retroflexion. Patient also recei pradeep antibiotics for suspected pneumonia and WBC gradually declined to 11.2 from 21.4 around time of a dmission. Liver ultrasound 07/08/2024 showed multiple liver lesions and thickened gallbladder wall. Patient now out of the hospital, able to swallow most foods no shortness of breath or pain. Patient has some trouble sleeping however. Past Medical History: History of bronchitis chickenpox COPD hepatitis high blood pressure influenza m easles mumps prostatism prior CVA ulcer Meds. Mirtazapine famotidine metoprolol finasteride furosemide amiodarone tamsulosin rosuvastatin Allergies none to meds Family history. 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 I have asked the pathologist to check for PD-L1 for possible benefit of immunotherapy for medical onco logist 2. Some dysphagia and significant weight loss not currently too obstructed and able to swallow reaso nably well for now. 3. PET scan for better staging. Patient may have possible liver lung and bone mets in addition to p ericardial involvement.. 4. Dr. Byrne medical oncologist to see patient. 5. Elected to place patient on Ambien for sleep problem and will follow him for palliation of sympto ms. 6. Thank you very much for allowing me to evaluate this patient. Cc: Phuc Malave MD Electronically signed by: Desmond Guevara MD, DABR 07/24/2024 3:24 PM
--- NOTE | 2024-07-25 09:00 | CTCCONSULT_ITS ---
[facility] [address] [place], [place] [address] Consultation Note Date: 07/24/2024 MR#: [id number] Name: JUAN ANTONIO COELLO : 1950 Dx: C16.9 Malignant neoplasm of stomach, unspecified Addendum. Spoke with pathologist at [place] Dr. Sanchez about doing dMMR testing along with PD-L1. F elt that sample was not enough for both but he will check into it. Port request also made with Dr. Reyna. Electronically signed by: Desmond Guevara MD, DABR 07/25/2024 8:58 AM
--- NOTE | 2024-08-19 01:00 | CTCCONSULT_ITS ---
Patient: JUAN ANTONIO COELLO : 1950 MR#: [id number] Page 3 of 4 CONSULTATION NOTE DATE OF CONSULTATION: 08/13/2024 NAME: JUAN ANTONIO COELLO ACCOUNT: [id number] : 1950 AGE: 74 REFERRING PHYSICIAN: Phuc Sotelo MD PRIMARY PHYSICIAN: Phuc Sotelo MD REASON FOR VISIT: Gastric adenocarcinoma Patient is here to establish care. Patient has lost more than 40 pounds since last year. Patient waller s been losing weight slowly but has lost his dog about a year ago and was thinking it was likely from his sad mood. Patient was diagnosed with cancer after he was admitted in the hospital in June 23 ONCOLOGY HISTORY: DIAGNOSIS: Malignant neoplasm of stomach, unspecified [ICD10] C16.9; Malignant neoplasm of lower third of esopha kristyn [ICD10] C15.5 DATE OF DIAGNOSIS: 07/12/2024 showed poorly differentiated adenocarcinoma STAGE/TNM: Likely stage IV with liver mets TREATMENT HISTORY: Care?Plan Start?Date Cycle Day Intent HISTORY OF PRESENT ILLNESS: 74-year-old gentleman who was admitted with abdominal pain GI bleeding and CT scan 07/07/2024 with pe ricardial effusion measuring up to 30 mm with suspicions for early small bowel ischemia. Underwent pericardiocentesis with drain placement 07/09/2024 with pericardial fluid positive for arcelia gnancy poorly differentiated adenocarcinoma. According to pathologist Dr. Sanchez pathologist at [facility], majority of cells in sample with various staining favor diffuse form of gastric carcinoma. HER2 n egative. Endoscopy formed by Dr. Malave 07/12/2024 revealed partially obstructing likely malignant eso phageal tumor found the GE junction, with biopsy revealing poorly fitted adenocarcinoma staining for CK7 similar to the pericardial fluid. The op note also mentioned that the mass was partially obstruct ing and circumferential and seeming extending more toward a cardiac in the fundic portion of the stom ach also seen in retroflexion. Patient also received antibiotics for suspected pneumonia and WBC grad ually declined to 11.2 from 21.4 around time of admission. Liver ultrasound 07/08/2024 showed multiple liver lesions and thickened gallbladder wall. Patient now out of the hospital, able to swallow most foods no shortness of breath or pain. Patient h as some trouble sleeping however. Past Medical History: History of bronchitis chickenpox COPD hepatitis high blood pressure influenza m easles mumps prostatism prior CVA ulcer OTHER MEDICAL HISTORY/CONDITIONS: CHICKENPOX,COPD HEPITITIS C (2002) HIGH BPLLD PRESSURE MEASLES MUMPS PROSTATE CONDITION STROKE( 201 0) RECENT ULCER BACK?(PLATED) FAMILY HISTORY: Mother:?BREAST?CA SOCIAL HISTORY: Occupational?History:?[employer] Education?Level:?Completed High School Marital?Status:?Single Tobacco?Pack?per?Day:?0 Tobacco?Use?Years:?60 ETOH?Use:?DENIES Drug?Note:?COCAINE?80S Social?History?Note:?LIVES?WITH? MEDICATIONS: 1. Ambien - 10 mg 1 tab every night before sleep 2. amiodarone - 200 mg Daily 3. famotidine - 20 mg Daily 4. finasteride - 5 mg Daily 5. Flomax - 0.4 mg Daily 6. Lasix - 40 mg Daily 7. mirtazapine - 15 mg Daily 8. oxycodone - 5 mg 1 - 2 tab q6 9. ROSUVASTATIN CALCIUM - 40 mg Daily 10. Toprol XL - 25 mg Twice a Day Medications Last Reconciled by Candace Houston MA on 08/13/2024 ALLERGIES: No Known Drug Allergies REVIEW OF SYSTEMS: A complete 14-point review of systems was performed and is negative except as noted in interval histo ry. PHYSICAL EXAMINATION: VITAL SIGNS: Temperature?98.2, B/P?70/46, Oxygen?Saturation?85% Weight?130?lbs (Change?since?07/24/24: ?-4?lbs) PAIN: 3 - Between mild and moderate pain ECOG Performance Status: 2 - Symptomatic; ambulatory; capable of self-care; >50% of waking hrs. not i n bed GENERAL APPEARANCE: Cachectic, in no apparent distress, appropriately interactive. HEENT: Normocephalic, temporal wasting, normal conjunctiva, no scleral icterus, normal hearing, lips without lesions, neck normal range of motion. CARDIOVASCULAR: Not assessed. PULMONARY: Normal respiratory effort, no respiratory distress or use of accessory muscles, speaking i n full sentences, no tachypnea. EXTREMITIES: No pedal edema or cyanosis. SKIN: Normal skin appearance. NEUROLOGIC: Alert and oriented x4. PSHYCHIATRIC: Appropriate affect, mood normal, behavior normal, intact thought and speech. 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 Patient already have lost a lot of weight and is very cachectic I will get PD-L1 and HER2 results as soon as possible Patient did not had enough tissue so ordered liver biopsy Given patient's ECOG performance status 2 or more, he will be a candidate for 2 drug therapy with 5-F U oxaliplatin Will add Herceptin if found to be HER2 positive Will add immunotherapy if CPS more than 1 Will wait for HER2 and PD-L1 results ORDERS: Referral to IR for liver biopsy to evaluate for metastatic disease NGS foundation testing CBC CMP Hepatitis panel Genetic counseling and testing Port placement RETURN TO CLINIC: 2 weeks BILLING AND COMPLIANCE: I reviewed external records from providers outside my specialty as summarized above. I spent a total of 50 minutes on this patient?s care on the day of their visit excluding time spent related to any bi lled procedures. This time includes time spent with the patient as well as time spent documenting in the medical record, reviewing patients records and tests, obtaining history, placing orders, communi cating with other healthcare professionals, counseling the patient, family or caregiver, and/or care coordination for the diagnoses above. Electronically Signed by: Cecilio Byrne MD T: 12:58 AM CC: PCP: Phuc Sotelo Referring: Phuc Sotelo This document was completed utilizing speech recognition software. Grammatical errors, random word in sertions, pronoun errors, and incomplete sentences are an occasional consequence of this system due t o software limitations, ambient noise, and hardware issues. Any formal questions or concerns about th e content, text or information contained within the body of this dictation should be directly address ed to the provider for clarification.
== END 2024-08-21 23:59 | disposition home or self-care (01) ==
LOC: SCTC 08:42
PROVIDERS: PCP Family Medicine; Referring Provider Family Medicine; Visit Provider Internal Medicine Hematology & Oncology
DX: C16.0 Malignant neoplasm of cardia (principal)
CPT/HCPCS: 99212; 99213; G0463

== ENCOUNTER 2024-08-15 08:01 | Inpatient (IN) | payer MEDICARE, BC, SELFPAY ==
[2024-08-15] VITALS (30 sets, daily range): BP systolic 86–129; BP diastolic 40–80; PULSE 70–81; RESP 17–25; TEMP 36.4–36.7; O2SAT 89–99; BMI 19.2
[2024-08-15] MEDS: SODIUM CHLORIDE 0.9% 1000 ML 1,000 ML 999 ML IV ×2 (09:11→10:47)
--- NOTE | 2024-08-15 09:24 | EKG_ITS ---
[facility] Test Date: 2024-08-15 Pat Name: JUAN ANTONIO COELLO Department: Room: - Gender: Male Clinical Research Assistant: : 1950 Requested By: Mira Childers Order Number: [id number] Reading MD: Mira Childers Measurements Intervals [place] Rate: 70 P: 36 SD: 216 QRS: 264 QRSD: 195 T: 32 QT: 506 QTc: 547 Interpretive Statements SINUS RHYTHM WITH FIRST DEGREE AV BLOCK POSSIBLE LEFT ATRIAL ENLARGEMENT [-0.1mV P WAVE IN V1/V2] MARKED RIGHT AXIS DEVIATION [QRS AXIS > 100] RIGHT BUNDLE BRANCH BLOCK [120+ ms QRS DURATION, UPRIGHT V1, 40+ ms S IN I/aVL/V4/V5/V6] Compared to ECG 07/12/2024 06:01:31 First degree AV block now present Atrial flutter no longer present Ventricular premature complex(es) no longer present Aberrant conduction of supraventricular beat(s) no longer present Myocardial infarct finding no longer present ST (T wave) deviation no longer present /store/S0/[id number]/ecg/[id number].pdf
--- NOTE | 2024-08-15 09:24 | XR_ITS ---
Examination: AP chest single view Technique one AP portable semiupright chest single view Exam date and time: August 15, 2024 0945 hrs. Indications: Chest pain today, diagnosis esophageal carcinoma Findings: Interval bilateral pneumonia, severe right lung Right internal jugular Port-A-Cath tip satisfactory position No significant cardiac enlargement Prominent right mediastinum Calcified aortic arch Impression: Bilateral pneumonia, severe in the right lung Follow-up is recommended to document clearing of the right lung pneumonia and exclude underlying right mediastinal lymphadenopathy in this patient with known diagnosis of esophageal carcinoma
--- NOTE | 2024-08-15 09:28 | PD.EDADULT ---
ED General RME/HPI General Chief complaint: General Adult/Misc Complain Stated complaint: UNABLE TO URINATE Arrival date/time: 08/15/24 08:01 RME / HPI RME / HPI narrative: DR. SMITH MAIN ED EVALUATION: 74 year old male patient with history of metastatic cancer presents to the Emergency Department with complaint of inability to urinate. states the patient has not urinated in several hours. Patient c/o pain all over due to his cancer. Related Data Home Medications ?Medication ?Instructions ?Recorded ?Confirmed famotidine 20 mg tablet (Pepcid) 20 mg PO HS #0 tabs 09/30/15 08/01/24 finasteride 5 mg tablet 5 mg PO HS 07/06/24 08/01/24 mirtazapine 15 mg tablet 15 mg PO HS 07/06/24 08/01/24 rosuvastatin 40 mg tablet 40 mg PO HS 07/06/24 08/01/24 tamsulosin 0.4 mg capsule 0.4 mg PO QDAY 07/06/24 08/01/24 metoprolol succinate 100 mg 100 mg PO QDAY 08/01/24 08/01/24 tablet,extended release 24 hr zolpidem 10 mg tablet 10 mg PO HS 08/01/24 08/01/24 Previous Rx's ?Medication ?Instructions ?Recorded amiodarone 200 mg tablet 200 mg PO QDAY #30 tabs 07/16/24 Allergies Allergy/AdvReac Type Severity Reaction Status Date / Time No Known Allergies Allergy Verified 07/12/24 20:13 Review of Systems Review of Systems Systems Reviewed: All systems reviewed, normal except as documented Narrative Review of Systems: GEN: No fever, no chills, no weight loss EYES: No discharge, no visual changes, no pain HEENT: No ear pain, no congestion, no sore throat PULM: No shortness of breath, no cough, no congestion CV: No chest pain, no dyspnea on exertion, no palpitations GI: No nausea, no vomiting, no diarrhea, no pain, no constipation : + inability to urinate; no dysuria MUSC/SKEL: + pain all over due to his cancer; no back pain SKIN: No rash PSYCH: No hallucinations, no depression HEME/LYMPH: No easy bleeding or bruising tendencies NEURO: No weakness, no headache Past Medical History Past Medical History NEUROLOGIC: Positive Cerebrovascular Accident CARDIAC: Positive Cardiac Disorders, Angina, Coronary Artery Disease, Hypercholesterolemia and Hypertension RESPIRATORY: Positive Chronic Obstructive Pulmonary Disease (COPD), Asthma (COPD), Bronchitis, Pneumonia (2 weeks ago) and Sleep Apnea GASTROINTESTINAL: Positive Gastrointestinal Bleed, Ulcer and Gastroesophageal Reflux Disease MUSCULOSKELETAL: Positive Arthritis ENT: Positive Cataracts HEMATOLOGIC: Positive Anemia PSYCHO/SOCIAL: Positive Depression and Anxiety OTHER HISTORY: Positive Blood Transfusions, Chicken Pox, Measles, Mumps and Cancer (stomach cancer) Family History FAMILY HISTORY: Positive Family Cardiac Disorders and Family Cancer Surgical History SURGICAL: Positive Coronary Stent (x1), Cardiac Catheterization and Angiogram Social History SMOKING STATUS: Never smoker SUBSTANCE USE: does not use ALCOHOL: Never ED Exam Narrative Physical exam: GENERAL APPEARANCE: alert and oriented x 4, well-developed, well-nourished VITALS: All vitals were reviewed and the pulse ox is 92% on 2 L/min via a nasal cannula. HEENT: Normocephalic, atraumatic; pupils equal, round, reactive to light; EOMI; mucous membranes pink, moist; oropharynx clear NECK: Supple LUNGS: CTABL; no wheezes, no rales, no rhonchi HEART: Regular rate, regular rhythm; normal S1, S2; no murmurs ABDOMEN: non distended; normal BS; soft, no tenderness, no guarding, no rebound; no masses, no organomegaly, no hernia BACK: no CVA tenderness EXTREMITIES: atraumatic; no edema NEUROLOGIC: awake; alert and oriented x4; cranial nerves II-XII grossly intact; no focal sensory or motor deficits PSYCHIATRIC: appropriate mood and affect SKIN: warm, dry, normal color; no rashes Course Course Course Narrative: Eldridge catheter placed with only 20mL output Quality Measures none Orders Category Date Time Status COVID-19 Screening Questionnaire NOW Care 08/15/24 11:12 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 Care 08/15/24 09:24 Active Decision to Admit X1 Care 08/15/24 11:12 Completed EKG (ED ONLY) *Do not use* NOW Care 08/15/24 09:24 Completed [place]ridge to [place] Routine Care 08/15/24 08:[address] abdomen pelvis wo con Stat Exams 08/15/24 12:21 Completed EKG (ED Only) Stat Exams 08/15/24 09:24 Draft XR chest 1V portable Stat Exams 08/15/24 09:24 Completed B-Type Natriuretic Peptide Stat Lab 08/15/24 10:04 Completed Blood Culture (Lab) Stat Lab 08/15/24 10:00 Received CBC Stat Lab 08/15/24 10:04 Completed Comprehensive Metabolic Panel Stat Lab 08/15/24 10:04 Completed Lactate (Lactic Acid) Stat Lab 08/15/24 10:04 Completed Lactic Acid, 3 HR Stat Lab 08/15/24 13:56 Completed Lipase Stat Lab 08/15/24 10:04 Completed Magnesium Stat Lab 08/15/24 10:04 Completed Partial Thromboplastin Time Stat Lab 08/15/24 11:09 Completed Procalcitonin Stat Lab 08/15/24 10:04 Completed Prothrombin Time with INR Stat Lab 08/15/24 11:09 Completed Troponin I Stat Lab 08/15/24 10:04 Completed Urinalysis Stat Lab 08/15/24 09:47 Completed Urine Culture Stat Lab 08/15/24 09:47 Received Azithromycin Inj [Zithromax Inj] 500 mg Med 08/15/24 11:07 Discontinued Sodium Chloride 0.9% 250 ml [Ns] 250 ml IV X1 Calcium Gluc/Ns 1000MG Ivpb [Calcium Gluc/Ns 1000mg Med 08/15/24 10:59 Discontinued Ivpb] 1,000 mg in 50 ml IV X1 Dextrose 50% Syr [D50w Syringe Abboject] Med 08/15/24 11:03 Discontinued 50 ml IV X1 ONE Insulin Regular Med 08/15/24 11:05 Discontinued 5 unit IV X1 ONE Ondansetron Inj [Zofran Inj] Med 08/15/24 09:23 Discontinued 4 mg IV X1 ONE Sod Polystyrene Sulfon Susp [Kayexalate Susp] Med 08/15/24 11:03 Discontinued 30 gm PO X1 ONE Sodium Chloride 0.9% 1000 ml [Ns] 1,000 ml Med 08/15/24 09:06 Discontinued IV 999 mls/hr Sodium Chloride 0.9% 1000 ml [Ns] 1,000 ml Med 08/15/24 09:55 Discontinued IV 999 mls/hr cefTRIAXone [Rocephin] 1,000 mg Med 08/15/24 11:07 Discontinued Sodium Chloride 0.9% (P) [Ns 0.9% (P)] 50 ml IV X1 fentaNYL INJ [Sublimaze Inj] Med 08/15/24 09:23 Discontinued 100 mcg IVP X1 ONE Vital Signs Vital signs: Vital Signs Temperature 97.7 F 08/15/24 08:07 Pulse Rate 75 08/15/24 08:07 Respiratory Rate 18 08/15/24 08:07 Blood Pressure 108/59 L 08/15/24 08:07 Pulse Oximetry (%) 93 L 08/15/24 08:07 Oxygen Delivery Method Room Air 08/15/24 08:07 [facility] Patient data External records reviewed:: [facility] previous records (Reviewed cancer note by Dr. 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 How is presenting disease/condition affected by chronic disease/condition?: exacerbated by Evaluation data The following diagnostics were reviewed and interpreted by me:: lab results, radiology exam(s) and EKG tracing(s) Lab and/or radiology exams considered but not ordered:: none Interpretation Summary: Procedure(s): XR chest 1V portable Accession Number(s): [id number] cc: Phuc Sotelo MD; Adrien Philip MD; Mira Smith MD~ Examination: AP chest single view Technique one AP portable semiupright chest single view Exam date and time: August 15, 2024 0945 hrs. Indications: Chest pain today, diagnosis esophageal carcinoma Findings: Interval bilateral pneumonia, severe right lung Right internal jugular Port-A-Cath tip satisfactory position No significant cardiac enlargement Prominent right mediastinum Calcified aortic arch Impression: Bilateral pneumonia, severe in the right lung Follow-up is recommended to document clearing of the right lung pneumonia and exclude underlying right mediastinal lymphadenopathy in this patient with known diagnosis of esophageal carcinoma Dictated By: Adrien Philip MD Procedure(s): CT abdomen pelvis wo [facility] Accession Number(s): [id number] cc: Phuc Sotelo MD; Adrien Philip MD; Mira Smith MD~ Examination: CT abdomen and pelvis without contrast. Coronal 3-D reconstructions. Sagittal 2-D reconstructions. Date and time of exam:August 15, 2024 1245 hrs. Comparison July 07, 2024 Indications: Patient unable to urinate this morning CTDI: vol (mGy): 9 DLP: (mGycm): 306 Technique: Axial images of the abdomen have been obtained, 3 mm slice thickness Intravenous contrast material has not been administered. Low dose protocols were performed. One or more of the following dose reduction techniques were used; automated exposure control, adjustment of the mA and/or KV according to patient size, use of iterative reconstruction technique. Findings: Opacity both lower lung zones consistent with pneumonia with moderate pleural effusion Trace pericardial effusion Cirrhosis, liver irregular in contour Mild ascites Suspicious for tiny gallstones, gallbladder wall appears mildly thickened No pancreatic or adrenal mass No renal or ureteral calculi Heavy abdominal aortic calcification Mildly fluid distended small bowel loops No pericecal inflammatory change Colonic diverticulosis Urinary bladder is contracted around a Eldridge catheter and there is no significant prostatomegaly,. 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 Dictated By: Adrien Philip MD Medications Medications considered but not ordered:: none Medication administrations:: Medication Administration History Acetaminophen (Acetaminophen 325 Mg Tablet) 650 mg PO Q6H PRN PRN Reason: Fever >100.3 or pain Stop: 09/14/24 13:53 Amiodarone HCl (Amiodarone Hcl 200 Mg Tablet) 200 mg PO DAILY JADE Stop: 09/14/24 15:29 Last Admin: 08/15/24 16:37 Dose: Not Given Documented By: ARTHUR Non-Admin Reason: Low B/P Docusate Sodium (Docusate Sod Liqd 100 Mg/10 Ml Udc) 100 mg PO BID PRN; Protocol PRN Reason: constipation Stop: 09/14/24 20:59 Heparin Sodium (Porcine) (Heparin Sod Inj 5000 Unit/Ml Vial) 5,000 unit SC Q12HR [facility] Stop: 08/29/24 20:59 Hydromorphone HCl (Hydromorphone Inj 2 Mg/Ml Vial) 0.5 mg IVP Q4HR PRN PRN Reason: pain 7-10 Stop: 08/20/24 15:14 Doxycycline Hyclate 100 mg/ (Sodium Chloride) 100 mls @ 100 mls/hr IV BID JADE Stop: 08/22/24 20:59 Ceftriaxone Sodium/Dextrose (Rocephin/D5w 1gm Iv Premix) 50 mls @ 100 mls/hr IV QDAY [facility]1983 Stop: 08/23/24 08:59 Sodium Chloride (Ns) 1,000 mls @ 999 mls/hr IV .Q1H1M [facility] Last Admin: 08/15/24 16:32 Dose: Not Given Documented By: ARTHUR Non-Admin Reason: on hold Sodium Bicarbonate 150 meq/ (Dextrose) 1,150 mls @ 120 mls/hr IV .Q9H35M [facility], [facility]1983 Stop: 08/16/24 02:40 Last Admin: 08/15/24 17:43 Dose: 120 mls/hr Documented By: ARTHUR Megestrol Acetate (Megestrol Acet Susp 400 Mg/10 Ml Udc) 400 mg PO DAILY [facility] Stop: 09/14/24 15:29 Last Admin: 08/15/24 16:35 Dose: 400 mg Documented By: ARTHUR Midodrine (Midodrine 5 Mg Tablet) 5 mg PO BID [facility] Stop: 09/14/24 20:59 Ondansetron HCl (Ondansetron Inj 2 Mg/Ml Inj 2 Ml) 4 mg IV Q6HR PRN; Protocol PRN Reason: NAUSEA OR VOMITING Stop: 09/14/24 14:56 Pantoprazole Sodium (Pantoprazole Inj 40 Mg Vial) 40 mg IVP QDAY [facility] Stop: 09/15/24 08:59 Discontinued Medications Dextrose (Dextrose 50%-Water Inj 50 Ml Syringe) 50 ml IV X1 ONE Stop: 08/15/24 11:04 Last Admin: 08/15/24 11:36 Dose: 50 ml Documented By: ARTHUR Fentanyl Citrate (Fentanyl Cit Inj 50 Mcg/Ml Amp 2ml) 100 mcg IVP X1 ONE Stop: 08/15/24 09:24 Last Admin: 08/15/24 09:39 Dose: 100 mcg Documented By: ARTHUR Sodium Chloride (Ns) 1,000 mls @ 999 mls/hr IV .Q1H1M ONE Stop: 08/15/24 10:06 Last Infusion: 08/15/24 10:25 Dose: Infused Documented By: Admin: 08/15/24 09:11 Dose: 999 mls/hr Documented By: ARTHUR Sodium Chloride (Ns) 1,000 mls @ 999 mls/hr IV .Q1H1M ONE Stop: 08/15/24 10:55 Last Infusion: 08/15/24 11:52 Dose: Infused Documented By: Admin: 08/15/24 10:47 Dose: 999 mls/hr Documented By: ARTHUR Calcium Gluconate/Sodium Chloride (Calcium Gluc/Ns 1000mg Ivpb) 1,000 mg in 50 mls @ 50 mls/hr IV X1 ONE Stop: 08/15/24 11:58 Last Infusion: 08/15/24 12:53 Dose: Infused Documented By: Admin: 08/15/24 11:36 Dose: 50 mls/hr Documented By: ARTHUR Azithromycin 500 mg/ Sodium (Chloride) 250 mls @ 250 mls/hr IV X1 ONE Stop: 08/15/24 12:06 Last Infusion: 08/15/24 12:53 Dose: Infused Documented By: Admin: 08/15/24 11:36 Dose: 250 mls/hr Documented By: ARTHUR Ceftriaxone Sodium 1,000 mg/ (Sodium Chloride) 50 mls @ 100 mls/hr IV X1 ONE Stop: 08/15/24 11:36 Last Infusion: 08/15/24 12:24 Dose: Infused Documented By: Admin: 08/15/24 11:37 Dose: 100 mls/hr Documented By: ARTHUR Sodium Chloride (Ns) 1,000 mls @ 100 mls/hr IV .Q10H JADE Stop: 08/15/24 23:59 Last Admin: 08/15/24 14:37 Dose: 100 mls/hr Documented By: ARTHUR Sodium Chloride (Ns) 1,000 mls @ 120 mls/hr IV .Q8H20M JADE Stop: 08/16/24 00:08 Last Admin: 08/15/24 16:37 Dose: 120 mls/hr Documented By: ARTHUR Sodium Bicarbonate 150 meq/ (Dextrose) 1,150 mls @ 100 mls/hr IV .[id number] [facility] Stop: 08/16/24 03:32 Last Admin: 08/15/24 16:36 Dose: 100 mls/hr Documented By: ARTHUR Sodium Bicarbonate 150 meq/ (Dextrose) 1,150 mls @ 250 mls/hr IV .Q4H36M [facility]1983 Stop: 08/15/24 21:35 Last Admin: 08/15/24 17:31 Dose: Not Given Documented By: ARTHUR Non-Admin Reason: Discontinued Insulin Human Regular (Insulin Hum Regular 1 Unit/0.01 Ml (Per Unit)) 5 unit IV X1 ONE Stop: 08/15/24 11:06 Last Admin: 08/15/24 11:37 Dose: 5 unit Documented By: ARTHUR Co-signed By: KEYLA Metoprolol Succinate (Metoprolol Succinate Xl 25 Mg Tabcr) 100 mg PO DAILY [facility] Stop: 09/14/24 14:14 Last Admin: 08/15/24 14:38 Dose: 100 mg Documented By: ARTHUR Midodrine (Midodrine 5 Mg Tablet) 5 mg PO DAILY [facility] Stop: 09/14/24 14:14 Last Admin: 08/15/24 14:38 Dose: 5 mg Documented By: ARTHUR Ondansetron HCl (Ondansetron Inj 2 Mg/Ml Inj 2 Ml) 4 mg IV X1 ONE; Protocol Stop: 08/15/24 09:24 Last Admin: 08/15/24 09:40 Dose: 4 mg Documented By: ARTHUR Patiromer (Patiromer Calcium 8.4 Gm Packet (Non-Form)) 8.4 gm PO X1 ONE Stop: 08/15/24 15:51 Last Admin: 08/15/24 16:35 Dose: 8.4 gm Documented By: ARTHUR Sodium Polystyrene Sulfonate (Sod Polystyrene Sulfon Susp 15 Gm/60 Ml Btl) 30 gm PO X1 ONE Stop: 08/15/24 11:04 Last Admin: 08/15/24 11:36 Dose: 30 gm Documented By: ARTHUR see above Consultations Consultation(s) initiated? (list below): Yes Consultation #1 (Physician, Specialty, Details): Discussed test HPI, PMHx, lab, radiology results and/or management with hospitalist. Will evaluate after abdomen/ pelvis CT is resulted. Time: 11:11 Consultation #2 (Physician, Specialty, Details): Discussed test HPI, PMHx, lab, radiology results and/or management with hospitalist. Will admit for further evaluation and management. Accepts patient for admission. Time: 13:50 Diagnosis Differential Diagnosis ED Complaint MDM: metastic cancer, cirrhosis, pneumonia, dehydration Most likely diagnosis given after review of the tests above:: As noted below. Admission Indicated Admission indicated?: indicated Explain why admission is indicated or not indicated:: Diagnoses meet admission criteria. Admission Request Was there a request for admission?: Yes Admission Attestation Admission request attestation: Discussed case with [] from Hospitalist service regarding admission. Discussed patients ED course, exam findings, labs, and radiology results. The Hospitalist [agrees,declines] to accept the patient for admission. Disposition Plan Disposition Plan: Admit Medical Decision Making MDM Narrative MDM Narrative: Jeanne Masters am scribing for and in the presence of Dr. Smith. Differential Diagnosis Differential Diagnosis: metastic cancer, cirrhosis, pneumonia, dehydration Lab Data 08/15/24 10:04 08/15/24 16:36 Labs: Lab Results 08/15/24 08/15/24 08/15/24 Range/Units 09:47 10:04 11:09 WBC 8.1 (3.8-10.6) Thou/mm3 RBC 4.02 L (4.50-5.90) Miln/mm3 Hgb 11.4 L (13.5-16.0) g/dL Hct 34.5 L (41.0-53.0) % MCV 86 (80-100) fL MCH 28.4 (25.0-35.0) pg MCHC 33.0 (31.0-37.0) g/dl RDW Std Deviation 50.6 H (35.1-43.9) fL Plt Count 220 D (140-440) Thou/mm3 Neut % (Auto) 71 (37-80) % Lymph % (Auto) 9 L (10-50) % [place] % (Auto) 15 H (0-12) % Eos % (Auto) 2 (0-10) % Baso % (Auto) 0 (0-2.5) % Neut # (Auto) 5.8 (1.8-7.7) Thou/mm3 Lymph # (Auto) 0.7 L (1.0-4.8) Thou/mm3 [place] # (Auto) 1.2 H (0.0-0.8) Thou/mm3 Eos # (Auto) 0.1 (0.0-0.5) Thou/mm3 Baso # (Auto) 0.0 (0.0-0.2) Thou/mm3 Immature Gran # (Auto) 0.32 H (0.00-0.00) Thou/mm3 Absolute Nucleated RBC 0.07 H (0.00-0.00) Thou/mm3 Immature Gran % 4 H (0-0) % Nucleated RBC % 1 H (0) /100 WBC PT 12.5 H (9.0-12.2) Seconds INR 1.2 (0.9-1.3) APTT 28.8 (22.0-36.0) Seconds Sodium 127 L (136-145) mMol/L Potassium 6.7 H* (3.4-5.1) mMol/L Chloride 90 L (98-107) mMol/L Carbon Dioxide 17.2 L (20.0-31.0) mMol/L Anion Gap 20 H (7-16) BUN 141 H* (9-23) mg/dL Creatinine 6.7 H* (0.6-1.3) mg/dL Estim Creat Clear Calc 8.2 L (>60) mL/min eGFR 8 L* (60 - ) See Note BUN/Creatinine Ratio 21 H (12-20) Ratio Glucose 92 (74-106) mg/dL Calculated Osmolality 301 H (275-295) Lactic Acid 5.9 H* (0.4-2.0) mMol/L Calcium 7.0 L (8.3-10.6) mg/dL Corrected Calcium 7.1 L (8.5-10.1) mg/dL Magnesium 3.5 H (1.6-2.6) mg/dL Total Bilirubin 0.4 (0.3-1.2) mg/dL AST 65 H (0-34) U/L ALT 22 (10-49) U/L Alkaline Phosphatase 710 H (46-116) U/L Troponin I < 0.020 (0.0-0.045) ng/mL B-Natriuretic Peptide 512 H* (0-100) pg/mL Total Protein 7.1 (5.7-8.2) gm/dL Albumin 3.9 (3.4-4.8) gm/dL Globulin 3.2 (2.3-3.5) gm/dL Albumin/Globulin Ratio 1.2 (1.2-2.2) Lipase 60 H (12-53) U/L Procalcitonin 0.99 H (0.0-0.49) ng/ml Ur Collection Type Clean Catch Urine Color Yellow (Lt Yel-Yel) Urine Clarity Hazy (Clear/Hazy) Urine pH 5.5 (5.0-7.0) Ur Specific [place] 1.018 (1.001-1.035) Urine Protein 2+ A (Neg - Trace) Urine Glucose (UA) Negative (Negative) Urine Ketones Negative (Negative) Urine Blood 1+ A (Negative) Urine Nitrite Negative (Negative) Urine Bilirubin Negative (Negative) Urine Urobilinogen (Auto) Negative (0.0-1.0) mg/dL Ur Leukocyte Esterase Negative (Negative) Urine RBC 4 H (0-3) /hpf Urine WBC 3 (0-5) /hpf Ur Squamous Epith Cells < 1 (0-5) /hpf Amorphous Crystals Present A (Absent) Urine Bacteria Rare (None) Hyaline Casts < 1 (0-1) /hpf
[2024-08-15] MEDS: fentaNYL CIT INJ 50 mCg/ML AMP 2ML 100 MCG IVP (09:39)
[2024-08-15] MEDS: ONDANSETRON INJ 2 MG/ML INJ 2 ML 4 MG IV (09:40)
[2024-08-15 10:10] LABS: Collection Type, Urine Clean Catch
[2024-08-15 10:14] LABS: Basophils % (Auto) 0 % (0-2.5); Eosinophils # (Auto) 0.1 Thou/mm3 (0.0-0.5); Eosinophils % (Auto) 2 % (0-10); Hematocrit 34.5 % (41.0-53.0); Hemoglobin 11.4 g/dL (13.5-16.0); Immature Granulocytes % (Auto) 4 % (0-0); Immature Granulocytes Auto 0.32 Thou/mm3 (0.00-0.00); Lymphocytes # (Auto) 0.7 Thou/mm3 (1.0-4.8); Lymphocytes % (Auto) 9 % (10-50); Mean Corpuscular Hemoglobin 28.4 pg (25.0-35.0); Mean Corpuscular Volume 86 fL (80-100); Monocytes # (Auto) 1.2 Thou/mm3 (0.0-0.8); Monocytes % (Auto) 15 % (0-12); Neutrophils # (Auto) 5.8 Thou/mm3 (1.8-7.7); Neutrophils % (Auto) 71 % (37-80); Nucleated Red Blood Cell # 0.07 Thou/mm3 (0.00-0.00); Nucleated Red Blood Cell % 1 /100 WBC (0); Platelet Count 220 Thou/mm3 (140-440); RDW Standard Deviation 50.6 fL (35.1-43.9); Red Blood Count 4.02 Miln/mm3 (4.50-5.90); White Blood Count 8.1 Thou/mm3 (3.8-10.6)
[2024-08-15 10:15] LABS: Lactate (Lactic Acid) 5.9 mMol/L (0.4-2.0)
[2024-08-15 10:31] LABS: Amorphous Crystals,Urine Present (Absent); Bacteria,Urine Rare; Bilirubin,Urine Negative (Negative); Blood,Urine 1+ (Negative); Color,Urine Yellow (Lt Yel-Yel); Glucose, Urine Negative (Negative); Hyaline Casts,Urine < 1 /hpf (0-1); Ketones,Urine Negative (Negative); Leukocyte Esterase,Urine Negative (Negative); Nitrite,Urine Negative (Negative); PH,Urine 5.5 (5.0-7.0); Protein,Urine 2+ (Neg - Trace); RBC,Urine 4 /hpf (0-3); Specific Gravity,Urine 1.018 (1.001-1.035); Squamous Epithelial Cell,Urine < 1 /hpf (0-5); Urobilinogen,Urine Negative mg/dL (0.0-1.0); WBC,Urine 3 /hpf (0-5)
[2024-08-15 10:39] LABS: Clarity,Urine Hazy (Clear/Hazy)
[2024-08-15 10:40] LABS: B-Type Natriuretic Peptide 512 pg/mL (0-100)
[2024-08-15 10:51] LABS: Alanine Aminotransferase 22 U/L (10-49); Albumin, Serum 3.9 gm/dL (3.4-4.8); Albumin/Globulin Ratio 1.2 (1.2-2.2); Alkaline Phosphatase 710 U/L (46-116); Anion Gap 20 (7-16); Aspartate Amino Transferase 65 U/L (0-34); BUN/Creatinine Ratio 21 Ratio (12-20); Bilirubin,Total 0.4 mg/dL (0.3-1.2); Calcium (Corrected) 7.1 mg/dL (8.5-10.1); Carbon Dioxide 17.2 mMol/L (20.0-31.0); Chloride 90 mMol/L (98-107); Creatinine (Component) 6.7 mg/dL (0.6-1.3); Estimated Creatinine Clearance 8.2 mL/min (>60); Globulin 3.2 gm/dL (2.3-3.5); Glucose 92 mg/dL (74-106); Lipase 60 U/L (12-53); Magnesium 3.5 mg/dL (1.6-2.6); Osmolality,Calculated 301 (275-295); Procalcitonin 0.99 ng/ml (0.0-0.49); Sodium 127 mMol/L (136-145); Total Protein 7.1 gm/dL (5.7-8.2); Troponin I < 0.020 ng/mL (0.0-0.045); eGFR 8 See Note
[2024-08-15 10:55] LABS: Potassium 6.7 mMol/L (3.4-5.1)
[2024-08-15 10:56] LABS: Blood Urea Nitrogen 141 mg/dL (9-23)
[2024-08-15 11:30] LABS: INR 1.2 (0.9-1.3); Partial Thromboplastin Time 28.8 Seconds (22.0-36.0); Prothrombin Time 12.5 Seconds (9.0-12.2)
[2024-08-15] MEDS: AZITHROMYCIN INJ 500 MG in SODIUM CHLORIDE 0.9% 250 ML 250 ML 250 MG IV (11:36)
[2024-08-15] MEDS: CALCIUM GLUC/NS 1000MG IVPB 1,000 MG/50 ML BAG 50 MG IV (11:36)
[2024-08-15] MEDS: SOD POLYSTYRENE SULFON SUSP 15 GM/60 ML BTL 30 GM PO (11:36)
[2024-08-15] MEDS: DEXTROSE 50%-WATER INJ 50 ML SYRINGE IV (11:36)
[2024-08-15] MEDS: cefTRIAXone 1,000 MG in SODIUM CHLORIDE 0.9% (P) 50 ML 100 MG IV (11:37)
[2024-08-15] MEDS: INSULIN HUM REGULAR 1 UNIT/0.01 ML (PER UNIT) 5 UNIT IV (11:37)
--- NOTE | 2024-08-15 12:21 | XR_ITS ---
Examination: CT abdomen and pelvis without contrast. Coronal 3-D reconstructions. Sagittal 2-D reconstructions. Date and time of exam:August 15, 2024 1245 hrs. Comparison July 07, 2024 Indications: Patient unable to urinate this morning CTDI: vol (mGy): 9 DLP: (mGycm): 306 Technique: Axial images of the abdomen have been obtained, 3 mm slice thickness Intravenous contrast material has not been administered. Low dose protocols were performed. One or more of the following dose reduction techniques were used; automated exposure control, adjustment of the mA and/or KV according to patient size, use of iterative reconstruction technique. Findings: Opacity both lower lung zones consistent with pneumonia with moderate pleural effusion Trace pericardial effusion Cirrhosis, liver irregular in contour Mild ascites Suspicious for tiny gallstones, gallbladder wall appears mildly thickened No pancreatic or adrenal mass No renal or ureteral calculi Heavy abdominal aortic calcification Mildly fluid distended small bowel loops No pericecal inflammatory change Colonic diverticulosis Urinary bladder is contracted around a Eldridge catheter and there is no significant prostatomegaly,. 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
[2024-08-15 13:09] LABS: Reflex Lactate? Y
[2024-08-15 14:01] LABS: Lactic Acid, 3 HR 7.9 mMol/L (0.4-2.0)
--- NOTE | 2024-08-15 14:15 | PC.CC ---
Patient is a 74 year-old male who presents to the hospital for Malignant Neoplasm of Stomach. Balbina STONE made [id number] contact with patient. ASW introduced self, role, and reason for visit. Patient appeared alert and oriented to self, location, and situation. At bedside was patient's , Roslyn Da Silva who patient consented to remain in the room during initial assessment. Patient confirmed information on demographics and reports to living at home with his . At home patient uses a walker to ambulate at home; however, reports to needing a wheelchair as he is unstable with the walker. The patient stated that his primary care provider ordered a wheelchair but he has yet to receive it. Patient is full assist at home with ADLs and his helps complete all his ADLs. Patient uses oxygen at home. Patient's primary care provider is Phuc Sotelo and uses [facility] for prescription medication. Upon discharge the patient plans to return home with his . support services tech to follow-up for any discharge needs.
[2024-08-15] MEDS: SODIUM CHLORIDE 0.9% 1000 ML 1,000 ML 100 ML IV (14:37)
[2024-08-15] MEDS: MIDODRINE 5 MG TABLET PO (14:38)
[2024-08-15] MEDS: METOPROLOL SUCCINATE XL 25 MG TABCR 100 MG PO (14:38)
[2024-08-15 14:50] LABS: Lactate (Lactic Acid) 7.9 mMol/L (0.4-2.0)
--- NOTE | 2024-08-15 15:15 | ESHP_ITS ---
Documentation for date of: 08/15/24 [facility] History of Present Illness Chief complaint: can't pee History of present illness: Jim Da Silva is 74 yr male with PMH of A-fib rate controlled on amiodarone, BPH, hypertension, hyperlipidemia, insomnia, history of gastric carcinoma with esophageal obstruction, pericardial effusion status post pericardiocentesis who presented to ED today after experiencing urinary retention. 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 Underwent pericardiocentesis. Symptoms of urinary retention have been ongoing since past 12 hours. is at bedside who stated that patient has had poor oral intake with difficulty swallowing due to obstruction. Has had significant weight loss and dysphagia. Patient denies any dysuria but endorses difficulty in maintaining stream. He is compliant with BPH medications. Oncology Dr. Guevara has been following patient since previous discharge. Patient has Port-A-cath placed in preparation for chemotherapy. He denies any constipation, diarrhea, blood in the stool, abdominal pain, fever, or chills. Endorses weakness. At home, diet consists of soft foods and little pieces. No issues of aspiration. In ED, vitals significant for soft blood pressure 108/59, pulse 75, 92% O2 on room air. Labs revealed WBC 8.1, hemoglobin 11.4, platelets 228, hyponatremic 128, hyperkalemic 6.7, bicarb 17.2, AG 20, Cr 6.7, lactic acid 5.9, corrected calcium 7.0, magnesium 3.5, ALP 710, BNP 512, procalcitonin 0.99. UA negative. EKG showed normal sinus rhythm with first-degree AV block, peaking of Twaves, negative troponins. Diagnostic testing:Bicarb 17.2, anion gap 20, Chest x-ray bilateral pneumonia more severe in right lung. CT abdomen pelvis showing bibasilar pneumonia, cirrhosis, no significant prostatomegaly. In ED patient was given calcium carbonate x 1, 2 L bolus normal saline, 5 units regular insulinAmp D5W, Rocephin times 1 g x 1, azithromycin 500 mg x 1. Stat repeat CMP no significant improvement of potassium at 6.4, worsening acidosis bicarb 14.8, creatinine 6.5 calcium 7.1, 3 mag 3.5. Repeat lactic acid elevated to 7.9. Patient admitted for managemenet of PILAR in setting of urinary retention/poor oral intake and hyperkalemia. PMH: as noted above PSH/procedures: PCI, percardiocentesis SH: Active tobacco smoker (smokes 10 cigarettes/day since the age of 17), occasionally drinks alcohol, denies illicit drugs use Review of Systems Constitutional Constitutional: Reports system reviewed and no additional complaints, except as documented Exam Vital Signs Temp Pulse Resp BP Pulse Ox O2 Del Method O2 Flow Rate 97.9 F 78 20 101/71 97 Nasal Cannula 2 08/15/24 14:00 08/15/24 14:38 08/15/24 14:08 08/15/24 14:38 08/15/24 14:08 08/15/24 14:00 08/15/24 14:08 Narrative Exam General: Alert and oriented x3, cachectic, difficulty in speaking, cooperative Eyes: Pupils are equal and reactive to light bilaterally HEENT: Atraumatic, normocephalic. No JVD noted. Mucosa dry. Cardiovascular: Normal S1 and S2. Regular rate and rhythm. No pitting edema Respiratory: Lungs are clear to auscultation bilaterally. No wheezing or crackles heard. Abdomen: Soft, nontender, not distended, normal bowel sounds. Skin: Warm to touch, dry, no rashes noted, senile purpura Musculoskeletal: No gross injuries. Able to move all 4 extremities. Neuro: Alert and oriented x3. No focal neuro deficits. Psych: Normal affect and mood Results: Labs 08/16/24 05:16 08/16/24 05:16 Labs: Short CBC 08/15/24 Range/Units 10:04 WBC 8.1 (3.8-10.6) Thou/mm3 Hgb 11.4 L (13.5-16.0) g/dL Hct 34.5 L (41.0-53.0) % Plt Count 220 D (140-440) Thou/mm3 BMP 08/15/24 10:04 Sodium 127 L Potassium 6.7 H* Chloride 90 L Carbon Dioxide 17.2 L BUN 141 H* Creatinine 6.7 H* Glucose 92 Calcium 7.0 L Cardiac Enzymes 08/15/24 Range/Units 10:04 Troponin I < 0.020 (0.0-0.045) ng/mL Liver Function 08/15/24 Range/Units 10:04 Total Bilirubin 0.4 (0.3-1.2) mg/dL AST 65 H (0-34) U/L ALT 22 (10-49) U/L Alkaline Phosphatase 710 H (46-116) U/L Albumin 3.9 (3.4-4.8) gm/dL Urine 08/15/24 Range/Units 09:47 Urine Color Yellow (Lt Yel-Yel) Urine Clarity Hazy (Clear/Hazy) Urine pH 5.5 (5.0-7.0) Ur Specific [place] 1.018 (1.001-1.035) Urine Protein 2+ A (Neg - Trace) Urine Glucose (UA) Negative (Negative) Quality Measures Quality Measures none Advance care planning discussed with:: patient Medications Home Medications and Allergies Home Medications ?Medication ?Instructions ?Recorded ?Confirmed ?Type famotidine 20 mg tablet (Pepcid) 20 mg PO HS #0 tabs 09/30/15 08/01/24 History finasteride 5 mg tablet 5 mg PO HS 07/06/24 08/01/24 History mirtazapine 15 mg tablet 15 mg PO HS 07/06/24 08/01/24 History rosuvastatin 40 mg tablet 40 mg PO HS 07/06/24 08/01/24 History tamsulosin 0.4 mg capsule 0.4 mg PO QDAY 07/06/24 08/01/24 History metoprolol succinate 100 mg 100 mg PO QDAY 08/01/24 08/01/24 History tablet,extended release 24 hr zolpidem 10 mg tablet 10 mg PO HS 08/01/24 08/01/24 History Allergies Allergy/AdvReac Type Severity Reaction Status Date / Time No Known Allergies Allergy Verified 07/12/24 20:13 Visit Medications Acetaminophen (Acetaminophen 325 Mg Tablet) 650 mg PO Q6H PRN PRN Reason: Fever >100.3 or pain Stop: 09/14/24 13:53 Docusate Sodium (Docusate Sod Liqd 100 Mg/10 Ml Udc) 100 mg PO BID PRN; Protocol PRN Reason: constipation Stop: 09/14/24 20:59 Heparin Sodium (Porcine) (Heparin Sod Inj 5000 Unit/Ml Vial) 5,000 unit SC Q12HR JADE Stop: 08/29/24 20:59 Sodium Chloride (Ns) 1,000 mls @ 100 mls/hr IV .Q10H JADE Stop: 08/15/24 23:59 Last Admin: 08/15/24 14:37 Dose: 100 mls/hr Doxycycline Hyclate 100 mg/ (Sodium Chloride) 100 mls @ 100 mls/hr IV BID [facility] Stop: 08/22/24 20:59 Ceftriaxone Sodium/Dextrose (Rocephin/D5w 1gm Iv Premix) 50 mls @ 100 mls/hr IV QDAY [facility] Stop: 08/23/24 08:59 Metoprolol Succinate (Metoprolol Succinate Xl 25 Mg Tabcr) 100 mg PO DAILY [facility] Stop: 09/14/24 14:14 Last Admin: 08/15/24 14:38 Dose: 100 mg Midodrine (Midodrine 5 Mg Tablet) 5 mg PO DAILY [facility] Stop: 09/14/24 14:14 Last Admin: 08/15/24 14:38 Dose: 5 mg Ondansetron HCl (Ondansetron Inj 2 Mg/Ml Inj 2 Ml) 4 mg IV Q6HR PRN; Protocol PRN Reason: NAUSEA OR VOMITING Stop: 09/14/24 14:56 Pantoprazole Sodium (Pantoprazole Inj 40 Mg Vial) 40 mg IVP QDAY [facility] Stop: 09/15/24 08:59 Discontinued Medications Dextrose (Dextrose 50%-Water Inj 50 Ml Syringe) 50 ml IV X1 ONE Stop: 08/15/24 11:04 Last Admin: 08/15/24 11:36 Dose: 50 ml Fentanyl Citrate (Fentanyl Cit Inj 50 Mcg/Ml Amp 2ml) 100 mcg IVP X1 ONE Stop: 08/15/24 09:24 Last Admin: 08/15/24 09:39 Dose: 100 mcg Sodium Chloride (Ns) 1,000 mls @ 999 mls/hr IV .Q1H1M ONE Stop: 08/15/24 10:06 Last Infusion: 08/15/24 10:25 Dose: Infused Sodium Chloride (Ns) 1,000 mls @ 999 mls/hr IV .Q1H1M ONE Stop: 08/15/24 10:55 Last Infusion: 08/15/24 11:52 Dose: Infused Calcium Gluconate/Sodium Chloride (Calcium Gluc/Ns 1000mg Ivpb) 1,000 mg in 50 mls @ 50 mls/hr IV X1 ONE Stop: 08/15/24 11:58 Last Infusion: 08/15/24 12:53 Dose: Infused Azithromycin 500 mg/ Sodium (Chloride) 250 mls @ 250 mls/hr IV X1 ONE Stop: 08/15/24 12:06 Last Infusion: 08/15/24 12:53 Dose: Infused Ceftriaxone Sodium 1,000 mg/ (Sodium Chloride) 50 mls @ 100 mls/hr IV X1 ONE Stop: 08/15/24 11:36 Last Infusion: 08/15/24 12:24 Dose: Infused Insulin Human Regular (Insulin Hum Regular 1 Unit/0.01 Ml (Per Unit)) 5 unit IV X1 ONE Stop: 08/15/24 11:06 Last Admin: 08/15/24 11:37 Dose: 5 unit Ondansetron HCl (Ondansetron Inj 2 Mg/Ml Inj 2 Ml) 4 mg IV X1 ONE; Protocol Stop: 08/15/24 09:24 Last Admin: 08/15/24 09:40 Dose: 4 mg Sodium Polystyrene Sulfonate (Sod Polystyrene Sulfon Susp 15 Gm/60 Ml Btl) 30 gm PO X1 ONE Stop: 08/15/24 11:04 Last Admin: 08/15/24 11:36 Dose: 30 gm Assessment & Plan Plan Patient is a 74-year-old male PMH of A-fib rate controlled on amiodarone, BPH, hypertension, hyperlipidemia, insomnia, history of gastric carcinoma with esophageal obstruction, pericardial effusion status post pericardiocentesis who presented to ED today after experiencing urinary retention for more than 12 hours. Denies any abdominal pain, suprapubic pain, dysuria. Endorses decreased oral intake solids and liquids due to dysphagia of underlying gastric carcinoma and esophageal mass. Patient admitted for management of PILAR in setting of urinary retention/poor oral intake and hyperkalemia. #Acute renal failure in setting of gastric carcinoma and tumor obstruction #Hypocalcemia #Hypermagnesemia #Hyperkalemia Insetting of gastric carcinoma and esophageal tumor obstruction. Patient has had poor oral intake including liquids. Significant weight loss in past month. Endorses no urinary output in past 12 hours. Denies any abdominal pain, suprapubic pain, dysuria. At home patient normally eats softened foods in small pieces with Ensure supplement. CT abdomen pelvis showed no findings of urinary retention, bladder expansion, no significant prostatomegaly. EKG showed normal sinus rhythm with first-degree AV block, peaking of Twaves, negative troponins. Calcium 7.0, magnesium 3.5, potassium 6.7 on admission. -Nephrology Dr. Parsons was consulted ?Continue normal saline maintenance fluids at 100 cc/h -Patient received 5 units regular insulin in ED. hold any additional insulin for now ?S/p calcium gluconate x 1 -patiromer 8.4 g x 1 -Bicarb drip 150 mEq 1 L D5W x 1 --Additional 1 L bolus normal saline after receiving bicarb drip -Follow-up with CMP every 4 hours x 2 overnight. Followed with daily CMP -Repeat EKG tomorrow #Anion gap metabolic acidosis #Elevated lactic acidosis Most likely d in setting of underlying kidney failure. Admission lactic acidosis 5.9. Status post 2 L bolus fluids, lactic acid increased to 7.9 -Continue with maintenance fluids 100 cc/h -Bicarb drip 150 mEq in 1 L D5W x 1 ? Monitor CMP every 4 hours -follow up lactic acid levels overnight #CAP CT abdomen pelvis showed significant bilateral pneumonia with chest x-ray showing more prominence in right lung. Patient is denying any coughing or shortness of breath, fever or chills. Denies any close sick contacts. Currently saturating at 98% via 2 L nasal cannula. -IV doxycycline 100 BID -IV Rocefin 1 gm daily #Hx gastric carcinoma with gastric outlet obstruction Diagnosis made 06/2024. 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 Patient has been following with Dr. Guevara on oncology. Currently has port cath placed for chemotherapy. Experiencing decreased appetite, fatigue, dysphagia. Poor oral intake with significant weight loss. -Dr. Guevara consulted -0.5 mg IV Dilaudid every 4 hours as needed for pain ? Megestrol for appetite stimulant ? Zofran 4 mg every 6 hours as needed for nausea ? Pantoprazole 40 mg IV daily ? Refer to speech pathology ? Referral to dietitian ? Aspiration precautions -Ensure max protein until cleared swallow study #Hx atrial fibrillation, rate controlled EKG showed mild normal sinus rhythm. -Jack vasc score 2 -continue amiodarone 200 mg daily -hold metoprolol succinate 100 mg daily due to soft blood pressure #Hx of possible hypotension Patient was recently started on midodrine [address] Spencer outpatient. -Continue midodrine 5 mg twice daily -Hold all antihypertensives #Hx BPH -Continue tamsulosin 0.4 mg PO daily ? Finasteride 5 mg p.o. daily Health maintenance: Dispo: ARF, hyperkalemia DVT prophylaxis: Subcu heparin CODE STATUS: Full code Diet: Ensure. Dysphagia I pending speech eval The patient's management plan was discussed with my attending physician Dr. Ngo and seniors Dr. Pizano/ Dr. Tirado. Jacquelyn Shakeel, PGY-1 L Mr Da Silva is a 74-year-old male PMH of A-fib rate controlled on amiodarone, BPH, hypertension, hyperlipidemia, insomnia, history of gastric carcinoma with esophageal obstruction, pericardial effusion s/p pericardiocentesis who was admitted for anuria for more than 12 hours, likely from decreased oral intake due to severe dysphagia from underlying gastric CA with esophageal involvement. Patient admitted for hemodialysis and management of acute hyperkalemia. K 6.7 on admission, patient was given regular insulin 5U x1 in the ED + Calcium gluc x1. Repeat K 6.7 --> 6.4. Ordered Veltassa 8.4g x1 and bicarb x1. BMP q6H with close monitoring. Dr Parsons consulted for HD, appreciate recommendations. Dr Guevara consulted for continued inpatient management. Patient is DNR/DNI, as expressed in the ED, AO x4, he is pending final POLST form documentation. Patient examined and case discussed with the team including attending physician. Note reviewed, I agree with the care plan as documented. - Craig Tirado MD, PGY 2 Attending Provider Attestation/Addendum I, Rafaela Ngo DO, attest that I was physically present for the leyva portions of the service and evaluated the patient with the resident and I reviewed and discussed the case with the resident and agree with the resident's findings and plans of care as documented above Patient is a 74-year-old male with past medical history of A-fib, BPH, hypertension, hyperlipidemia who presented to the ED with inability to urinate for the past 2 days or so. 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 Patient has since been following the cancer center and due for PET scan tomorrow to further determine treatment. However, patient has been having poor appetite since the past few weeks and intermittent nausea and vomiting. Patient is drinking about half to 1 bottle of water today only and has lost a significant amount of weight since his previous admission. Patient denies any dysuria or urinary urgency. Patient has been unable to tolerate p.o. intake due to intermittent nausea and vomiting. Upon evaluation in the ED, patient was noted to have acute renal failure with sodium 127 potassium 6.7, 2017.2 anion gap 20 BUN 41 creatinine 6.7 osmolality 301 lactic acid 5.9 calcium 7 point magnesium 3.5. BMP today 520. This is likely due to dehydration as patient has been unable to tolerate p.o. intake. Patient received calcium gluconate, fluids insulin and Kayexalate. Will admit patient to telemetry for further workup and medical management of acute medical failure. Nephrology was called and recommended starting IV fluids at 110 mL an hour. Due to metabolic acidosis resulting in start patient on bicarb drip. Will give another dose of Kayexalate.. Will consult oncology for further recommendations as well. CT abdomen pelvis shows no evidence of any obstructive uropathy.. Patient will need to be aggressively hydrated. Will continue to follow potassium level every 6 hours.
[2024-08-15 15:18] LABS: Alanine Aminotransferase 27 U/L (10-49); Albumin, Serum 3.8 gm/dL (3.4-4.8); Albumin/Globulin Ratio 1.3 (1.2-2.2); Alkaline Phosphatase 670 U/L (46-116); Anion Gap 17 (7-16); Aspartate Amino Transferase 68 U/L (0-34); BUN/Creatinine Ratio 21 Ratio (12-20); Bilirubin,Total 0.3 mg/dL (0.3-1.2); Calcium (Corrected) 7.1 mg/dL (8.5-10.1); Chloride 96 mMol/L (98-107); Creatinine (Component) 6.5 mg/dL (0.6-1.3); Estimated Creatinine Clearance 8.4 mL/min (>60); Globulin 2.9 gm/dL (2.3-3.5); Glucose 96 mg/dL (74-106); Osmolality,Calculated 300 (275-295); Sodium 128 mMol/L (136-145); Total Protein 6.7 gm/dL (5.7-8.2); eGFR 8 See Note
[2024-08-15 15:19] LABS: Potassium 6.4 mMol/L (3.4-5.1)
[2024-08-15 15:20] LABS: Blood Urea Nitrogen 135 mg/dL (9-23); Calcium 6.9 mg/dL (8.3-10.6); Carbon Dioxide 14.8 mMol/L (20.0-31.0)
[2024-08-15] MEDS: PATIROMER CALCIUM 8.4 GM PACKET (NON-FORM) PO (16:35)
[2024-08-15] MEDS: MEGESTROL ACET SUSP 400 MG/10 ML UDC PO (16:35)
[2024-08-15] MEDS: Sodium Bicarb 8.4% 50ml Vial* 150 MEQ in DEXTROSE 5%-WATER 1,000 ML 100 MEQ IV (16:36)
[2024-08-15] MEDS: SODIUM CHLORIDE 0.9% 1000 ML 1,000 ML 120 ML IV (16:37)
[2024-08-15 17:24] LABS: Alanine Aminotransferase 22 U/L (10-49); Albumin, Serum 3.5 gm/dL (3.4-4.8); Albumin/Globulin Ratio 1.3 (1.2-2.2); Alkaline Phosphatase 627 U/L (46-116); Anion Gap 20 (7-16); Aspartate Amino Transferase 68 U/L (0-34); BUN/Creatinine Ratio 21 Ratio (12-20); Bilirubin,Total 0.3 mg/dL (0.3-1.2); Calcium (Corrected) 7.1 mg/dL (8.5-10.1); Carbon Dioxide 15.7 mMol/L (20.0-31.0); Chloride 96 mMol/L (98-107); Creatinine (Component) 6.3 mg/dL (0.6-1.3); Estimated Creatinine Clearance 8.7 mL/min (>60); Globulin 2.7 gm/dL (2.3-3.5); Glucose 80 mg/dL (74-106); Osmolality,Calculated 306 (275-295); Sodium 132 mMol/L (136-145); Total Protein 6.2 gm/dL (5.7-8.2); eGFR 9 See Note
[2024-08-15 17:26] LABS: Blood Urea Nitrogen 133 mg/dL (9-23)
[2024-08-15 17:27] LABS: Calcium 6.7 mg/dL (8.3-10.6)
[2024-08-15 17:28] LABS: Potassium 6.2 mMol/L (3.4-5.1)
[2024-08-15 17:42] LABS: Reflex Lactate? Y
[2024-08-15] MEDS: Sodium Bicarb 8.4% 50ml Vial* 150 MEQ in DEXTROSE 5%-WATER 1,000 ML 120 MEQ IV (17:43)
[2024-08-15 19:00] LABS: Lactate (Lactic Acid) 6.9 mMol/L (0.4-2.0)
[2024-08-15 19:28] LABS: Alanine Aminotransferase 22 U/L (10-49); Albumin, Serum 3.6 gm/dL (3.4-4.8); Albumin/Globulin Ratio 1.3 (1.2-2.2); Alkaline Phosphatase 636 U/L (46-116); Anion Gap 19 (7-16); Aspartate Amino Transferase 68 U/L (0-34); BUN/Creatinine Ratio 21 Ratio (12-20); Bilirubin,Total 0.3 mg/dL (0.3-1.2); Carbon Dioxide 15.3 mMol/L (20.0-31.0); Chloride 96 mMol/L (98-107); Creatinine (Component) 6.3 mg/dL (0.6-1.3); Estimated Creatinine Clearance 8.7 mL/min (>60); Globulin 2.7 gm/dL (2.3-3.5); Glucose 102 mg/dL (74-106); Osmolality,Calculated 303 (275-295); Sodium 130 mMol/L (136-145); Total Protein 6.3 gm/dL (5.7-8.2); eGFR 9 See Note
[2024-08-15 19:30] LABS: Blood Urea Nitrogen 132 mg/dL (9-23)
[2024-08-15 19:31] LABS: Calcium 6.7 mg/dL (8.3-10.6)
[2024-08-15] MEDS: HYDROmorphone INJ 2 MG/ML VIAL 0.5 MG IVP (20:24)
[2024-08-15] MEDS: DOXYCYCLINE INJ 100 MG in SODIUM CHLORIDE 0.9% (P) 100 ML IV (20:35)
[2024-08-15] MEDS: HEPARIN SOD INJ 5000 UNIT/ML VIAL SC (20:42)
[2024-08-15 21:53] LABS: Reflex Lactate? Y
[2024-08-16] VITALS (22 sets, daily range): BP systolic 96–138; BP diastolic 44–68; PULSE 58–91; RESP 18–23; TEMP 36–36.8; O2SAT 87–99; BMI 20.2
[2024-08-16] MEDS: HYDROmorphone INJ 2 MG/ML VIAL 0.5 MG IVP ×4 (00:04→22:30)
[2024-08-16 01:11] LABS: Lactate (Lactic Acid) 7.7 mMol/L (0.4-2.0)
[2024-08-16 01:49] LABS: Alanine Aminotransferase 23 U/L (10-49); Albumin, Serum 3.3 gm/dL (3.4-4.8); Albumin/Globulin Ratio 1.3 (1.2-2.2); Alkaline Phosphatase 604 U/L (46-116); Anion Gap 23 (7-16); Aspartate Amino Transferase 70 U/L (0-34); BUN/Creatinine Ratio 21 Ratio (12-20); Bilirubin,Total 0.3 mg/dL (0.3-1.2); Blood Urea Nitrogen 130 mg/dL (9-23); Calcium (Corrected) 7.6 mg/dL (8.5-10.1); Carbon Dioxide 15.5 mMol/L (20.0-31.0); Chloride 95 mMol/L (98-107); Creatinine (Component) 6.2 mg/dL (0.6-1.3); Estimated Creatinine Clearance 8.9 mL/min (>60); Globulin 2.6 gm/dL (2.3-3.5); Glucose 96 mg/dL (74-106); Osmolality,Calculated 308 (275-295); Potassium 5.6 mMol/L (3.4-5.1); Sodium 133 mMol/L (136-145); Total Protein 5.9 gm/dL (5.7-8.2); eGFR 9 See Note
[2024-08-16 04:05] LABS: Reflex Lactate? Y
[2024-08-16 05:45] LABS: Lactic Acid, 3 HR 7.4 mMol/L (0.4-2.0)
[2024-08-16 05:50] LABS: Basophils % (Auto) 0 % (0-2.5); Eosinophils # (Auto) 0.1 Thou/mm3 (0.0-0.5); Eosinophils % (Auto) 1 % (0-10); Hematocrit 32.5 % (41.0-53.0); Hemoglobin 10.5 g/dL (13.5-16.0); Immature Granulocytes % (Auto) 4 % (0-0); Immature Granulocytes Auto 0.26 Thou/mm3 (0.00-0.00); Lymphocytes # (Auto) 0.3 Thou/mm3 (1.0-4.8); Lymphocytes % (Auto) 5 % (10-50); Mean Corpuscular HGB Conc 32.3 g/dl (31.0-37.0); Mean Corpuscular Hemoglobin 28.5 pg (25.0-35.0); Mean Corpuscular Volume 88 fL (80-100); Monocytes # (Auto) 1.2 Thou/mm3 (0.0-0.8); Monocytes % (Auto) 19 % (0-12); Neutrophils # (Auto) 4.7 Thou/mm3 (1.8-7.7); Neutrophils % (Auto) 71 % (37-80); Nucleated Red Blood Cell # 0.05 Thou/mm3 (0.00-0.00); Nucleated Red Blood Cell % 1 /100 WBC (0); Platelet Count 188 Thou/mm3 (140-440); RDW Standard Deviation 53.3 fL (35.1-43.9); Red Blood Count 3.69 Miln/mm3 (4.50-5.90); White Blood Count 6.6 Thou/mm3 (3.8-10.6)
[2024-08-16 07:05] LABS: Alanine Aminotransferase 29 U/L (10-49); Albumin, Serum 3.4 gm/dL (3.4-4.8); Albumin/Globulin Ratio 1.4 (1.2-2.2); Alkaline Phosphatase 644 U/L (46-116); Anion Gap 22 (7-16); Aspartate Amino Transferase 74 U/L (0-34); BUN/Creatinine Ratio 22 Ratio (12-20); Bilirubin,Total 0.3 mg/dL (0.3-1.2); Calcium (Corrected) 7.1 mg/dL (8.5-10.1); Carbon Dioxide 17.5 mMol/L (20.0-31.0); Chloride 92 mMol/L (98-107); Creatinine (Component) 6.4 mg/dL (0.6-1.3); Globulin 2.4 gm/dL (2.3-3.5); Glucose 90 mg/dL (74-106); Magnesium 3.1 mg/dL (1.6-2.6); Osmolality,Calculated 307 (275-295); Potassium 5.7 mMol/L (3.4-5.1); Sodium 131 mMol/L (136-145); Total Protein 5.8 gm/dL (5.7-8.2); eGFR 9 See Note
[2024-08-16 07:08] LABS: Calcium 6.6 mg/dL (8.3-10.6)
[2024-08-16 07:09] LABS: Blood Urea Nitrogen 138 mg/dL (9-23)
[2024-08-16 07:11] LABS: Phosphorous 10.4 mg/dL (2.4-5.1)
--- NOTE | 2024-08-16 07:32 | PC.NURSE ---
LAB RESULTS CALLED TO DR CHACON. K=5.7, DAX=516, CR=6.4, LACTIC 7.4
--- NOTE | 2024-08-16 08:07 | PD.ONCCONS ---
HPI Data of Consult Consult date: 08/16/24 Requesting Physician: Rahat Robbins MD Primary Care Provider: Phuc Sotelo MD Consult Narrative Reason for consult: Stage IV gastric CA acute renal failure History of present illness: Patient is an unfortunate 74-year-old male well-known to us with recent diagnosis of gastric CA presented with distal esophageal obstruction and pericardial effusion. Was admitted a month ago and underwent pericardiocentesis to alleviate potential tamponade problems with cytology and eventual tissue diagnosis from GE junction revealing poorly differentiated adenocarcinoma. HER2 negative PD-L1 60 positive. Foundation 1 pending. Patient was scheduled for PET scan for staging today, saw Dr. Byrne medical oncologist at [facility] and awaiting chemo to be done as an outpatient. Patient yesterday was noted to be unable to pass urine for 12+ hours along with poor oral intake due to obstructive symptoms and came into the ER. Significant abnormal renal functions including BUN 132 creatinine 6.3 EGFR 9 lactic acid 6.9 alk phos 636, all significant worse than labs 1 month ago. Abdominal pelvis CT revealed bibasilar pneumonia cirrhosis cholelithiasis mildly fluid distended small bowel loops likely hepatic enteropathy. Patient now admitted receiving fluids and electrolyte replacement antibiotics. Patient primary physician and quality lab assoc, Dr. Parsons, has been consulted. cc:: cc: Rahat Robbins MD Past Medical History Social History SOCIAL: Active tobacco smoker occasionally drinks alcohol denies illicit drug use Past Medical History Comments PMH COMMENT: History of back surgery clot removed from neck 6 CVA coronary artery disease COPD depression Meds Home Medications and Allergies Home Medications ?Medication ?Instructions ?Recorded ?Confirmed ?Type famotidine 20 mg tablet (Pepcid) 20 mg PO HS #0 tabs 09/30/15 08/01/24 History finasteride 5 mg tablet 5 mg PO HS 07/06/24 08/01/24 History mirtazapine 15 mg tablet 15 mg PO HS 07/06/24 08/01/24 History rosuvastatin 40 mg tablet 40 mg PO HS 07/06/24 08/01/24 History tamsulosin 0.4 mg capsule 0.4 mg PO QDAY 07/06/24 08/01/24 History metoprolol succinate 100 mg 100 mg PO QDAY 08/01/24 08/01/24 History tablet,extended release 24 hr zolpidem 10 mg tablet 10 mg PO HS 08/01/24 08/01/24 History Allergies Allergy/AdvReac Type Severity Reaction Status Date / Time No Known Allergies Allergy Verified 07/12/24 20:13 Exam Vital Signs Temp Pulse Resp BP Pulse Ox O2 Del Method O2 Flow Rate 96.9 F 81 23 H 113/55 L 93 L Nasal Cannula 2 08/16/24 04:00 08/16/24 07:54 08/16/24 04:00 08/16/24 04:00 08/16/24 04:00 08/16/24 04:00 08/16/24 04:00 Narrative Exam Appearing tired but comfortable answering questions with present Results Labs 08/16/24 05:16 08/16/24 05:16 Labs: Short CBC 08/15/24 08/16/24 Range/Units 10:04 05:16 WBC 8.1 6.6 (3.8-10.6) Thou/mm3 Hgb 11.4 L 10.5 L (13.5-16.0) g/dL Hct 34.5 L 32.5 L (41.0-53.0) % Plt Count 220 D 188 D (140-440) Thou/mm3 BMP 08/15/24 08/15/24 08/15/24 10:04 14:32 16:36 Sodium 127 L 128 L 132 L Potassium 6.7 H* 6.4 H* 6.2 H* Chloride 90 L 96 L 96 L Carbon Dioxide 17.2 L 14.8 L* 15.7 L BUN 141 H* 135 H* 133 H* Creatinine 6.7 H* 6.5 H* 6.3 H* Glucose 92 96 80 Calcium 7.0 L 6.9 L 6.7 L* 08/15/24 08/16/24 08/16/24 18:49 00:48 05:16 Sodium 130 L 133 L 131 L Potassium 6.0 H 5.6 H 5.7 H Chloride 96 L 95 L 92 L Carbon Dioxide 15.3 L 15.5 L 17.5 L BUN 132 H* 130 H* 138 H* Creatinine 6.3 H* 6.2 H* 6.4 H* Glucose 102 96 90 Calcium 6.7 L* 7.0 L 6.6 L* Cardiac Enzymes 08/15/24 Range/Units 10:04 Troponin I < 0.020 (0.0-0.045) ng/mL Liver Function 08/15/24 08/15/24 08/15/24 Range/Units 10:04 14:32 16:36 Total Bilirubin 0.4 0.3 0.3 (0.3-1.2) mg/dL AST 65 H 68 H 68 H (0-34) U/L ALT 22 27 22 (10-49) U/L Alkaline Phosphatase 710 H 670 H D 627 H D (46-116) U/L Albumin 3.9 3.8 3.5 (3.4-4.8) gm/dL 08/15/24 08/16/24 08/16/24 Range/Units 18:49 00:48 05:16 Total Bilirubin 0.3 0.3 0.3 (0.3-1.2) mg/dL AST 68 H 70 H 74 H (0-34) U/L ALT 22 23 29 (10-49) U/L Alkaline Phosphatase 636 H 604 H D 644 H D (46-116) U/L Albumin 3.6 3.3 L 3.4 (3.4-4.8) gm/dL Urine 08/15/24 Range/Units 09:47 Urine Color Yellow (Lt Yel-Yel) Urine Clarity Hazy (Clear/Hazy) Urine pH 5.5 (5.0-7.0) Ur Specific [place] 1.018 (1.001-1.035) Urine Protein 2+ A (Neg - Trace) Urine Glucose (UA) Negative (Negative) Assessment and Plan Additional Assessment & Plan Additional Plan: 1. Stage IV gastric CA with distal esophageal obstruction pericardial involvement. 2. Scheduled for chemo with Dr. Byrne at [facility] 3. Admitted with urinary outlet obstruction acute renal failure dehydration electrolyte imbalance pneumonia. 4. Agree with your supportive measures, and will follow patient upon discharge at [facility].
--- NOTE | 2024-08-16 08:29 | PCS.ST ---
Functional oral/pharyngeal swallow. Recommend blenderized diet to maximize nutrition and comfort with eating at this time.
[2024-08-16] MEDS: cefTRIAXone/D5w 1gm IV premix 50 ML IV (08:54)
[2024-08-16] MEDS: SODIUM CHLORIDE 0.9% 1000 ML 1,000 ML 100 ML IV (08:58)
[2024-08-16] MEDS: MEGESTROL ACET SUSP 400 MG/10 ML UDC PO (09:07)
[2024-08-16] MEDS: MIDODRINE 5 MG TABLET PO ×2 (09:14→20:43)
[2024-08-16] MEDS: AMIODARONE HCL 200 MG TABLET PO (09:14)
[2024-08-16] MEDS: SEVELAMER CARBONATE 800 MG TABLET PO (09:15)
[2024-08-16] MEDS: CALCIUM CARBONATE 600 MG TABLET PO (09:15)
[2024-08-16] MEDS: PANTOPRAZOLE INJ 40 MG VIAL IVP (09:23)
[2024-08-16] MEDS: HEPARIN SOD INJ 5000 UNIT/ML VIAL SC (09:24)
--- NOTE | 2024-08-16 09:47 | ESPR_ITS ---
<Statement entered by Juan Pizano DO - 08/16/24 20:44> Senior attestation: Patient was examined and case was reviewed with team including attending physician. Note reviewed, I agree with most of its contents and agree with the patient's care. Patient continues to have minimal urine output, ~145cc reported overnight, despite IV fluid initiation. Progressive Care Unit Registered Nurse Dr. Parsons following, advises hemodialysis, patient and family are in agreement. Hemodialysis session planned for today pending dialysis catheter insertion. Hypoxia reported this afternoon, oxygen requirements increased to 8L nasal cannula. Will hold on IV fluids for now pending dialysis, will lower dilaudid dose to 0.5mg q4hr prn with concern of opioid medication contributing to patient's respiratory status. Patient does appear more encephalopathic today, likely attributed to uremia. Juan Pizano DO PGY-3 Documentation for date of: 08/16/24 Subjective Subjective Interval history: Patient was seen and examined at bedside. No acute events overnight. Continues to have minimal urine output (<200cc) in setting of ARF and poor oral intake. Family was at beside and updated on management plan. Family agreed to start patient on dialysis due to decreased urine output and continued electrolyte abnormalities. Slowly showing signs of acute metabolic encephalopathy with delirium, agitation. Likely in the setting of worsening renal failure with increasing BUN. Speech therapy was consulted and started patient on blenderized diet with boost as he is not not able to swallow due to dysphagia and has very poor food nutritional intake. There was discussion about possibility of placing feeding tube. At this time we will defer until patient can undergo dialysis. There is some concern of fluid overload as patient has been receiving maintenance fluids. Was placed on hold until patient can start dialysis. Currently no signs of fluid overload. Continue with IV Dilaudid 0.5 mg every 4 hours for pain. Doxycycline 100 twice daily, Rocephin 1 mg daily for total of 5 days for treatment of CAP. Urine cultures blood cultures pending Patient remains in normal sinus rhythm--continue amiodarone 200 mg daily. Sodium downtrending 131, potassium slight downtrend 5.7, slight improvement bicarb 17.5, increased creatinine 6.2, BUN 142, elevated phosphate 10.4 Started patient on sevelamer and continue Veltassa-- pending dialysis. Review of systems otherwise negative except what is mentioned above. Exam Vital Signs Temp Pulse Resp BP Pulse Ox O2 Del Method O2 Flow Rate 97.8 F 81 19 98/52 L 90 L Nasal Cannula 1.5 08/16/24 08:00 08/16/24 09:14 08/16/24 08:00 08/16/24 09:14 08/16/24 08:00 08/16/24 08:00 08/16/24 08:00 Narrative Exam General: Alert and oriented x1, cachectic, difficulty in speaking, cooperative Eyes: Pupils are equal and reactive to light bilaterally HEENT: Atraumatic, normocephalic. No JVD noted. Mucosa dry. Cardiovascular: Normal S1 and S2. Regular rate and rhythm. No pitting edema Respiratory: expiratory wheezing Abdomen: Soft, nontender, not distended, normal bowel sounds. Skin: Warm to touch, dry, no rashes noted, senile purpura Musculoskeletal: No gross injuries. Able to move all 4 extremities. Neuro: Alert and oriented x3. No focal neuro deficits. Psych: Normal affect and mood Objective Labs 08/16/24 05:16 08/16/24 17:02 Labs: Laboratory Results - last 24 hr 08/15/24 08/15/24 08/15/24 09:47 10:04 11:09 WBC 8.1 RBC 4.02 L Hgb 11.4 L Hct 34.5 L MCV 86 MCH 28.4 MCHC 33.0 RDW Std Deviation 50.6 H Plt Count 220 D Neut % (Auto) 71 Lymph % (Auto) 9 L [place] % (Auto) 15 H Eos % (Auto) 2 Baso % (Auto) 0 Neut # (Auto) 5.8 Lymph # (Auto) 0.7 L [place] # (Auto) 1.2 H Eos # (Auto) 0.1 Baso # (Auto) 0.0 Immature Gran # (Auto) 0.32 H Absolute Nucleated RBC 0.07 H Immature Gran % 4 H Nucleated RBC % 1 H PT 12.5 H INR 1.2 APTT 28.8 Sodium 127 L Potassium 6.7 H* Chloride 90 L Carbon Dioxide 17.2 L Anion Gap 20 H BUN 141 H* Creatinine 6.7 H* Estim Creat Clear Calc 8.2 L eGFR 8 L* BUN/Creatinine Ratio 21 H Glucose 92 Calculated Osmolality 301 H Lactic Acid 5.9 H* Calcium 7.0 L Corrected Calcium 7.1 L Phosphorus Magnesium 3.5 H Total Bilirubin 0.4 AST 65 H ALT 22 Alkaline Phosphatase 710 H Troponin I < 0.020 B-Natriuretic Peptide 512 H* Total Protein 7.1 Albumin 3.9 Globulin 3.2 Albumin/Globulin Ratio 1.2 Lipase 60 H Procalcitonin 0.99 H Ur Collection Type Clean Catch Urine Color Yellow Urine Clarity Hazy Urine pH 5.5 Ur Specific [place]wood 1.018 Urine Protein 2+ A Urine Glucose (UA) Negative Urine Ketones Negative Urine Blood 1+ A Urine Nitrite Negative Urine Bilirubin Negative Urine Urobilinogen (Auto) Negative Ur Leukocyte Esterase Negative Urine RBC 4 H Urine WBC 3 Ur Squamous Epith Cells < 1 Amorphous Crystals Present A Urine Bacteria Rare Hyaline Casts < 1 08/15/24 08/15/24 08/15/24 13:56 14:32 16:36 WBC RBC Hgb Hct MCV MCH MCHC RDW Std Deviation Plt Count Neut % (Auto) Lymph % (Auto) [place] % (Auto) Eos % (Auto) Baso % (Auto) Neut # (Auto) Lymph # (Auto) [place] # (Auto) Eos # (Auto) Baso # (Auto) Immature Gran # (Auto) Absolute Nucleated RBC Immature Gran % Nucleated RBC % PT INR APTT Sodium 128 L 132 L Potassium 6.4 H* 6.2 H* Chloride 96 L 96 L Carbon Dioxide 14.8 L* 15.7 L Anion Gap 17 H 20 H BUN 135 H* 133 H* Creatinine 6.5 H* 6.3 H* Estim Creat Clear Calc 8.4 L 8.7 L eGFR 8 L* 9 L* BUN/Creatinine Ratio 21 H 21 H Glucose 96 80 Calculated Osmolality 300 H 306 H Lactic Acid 7.9 H* 7.9 H* Calcium 6.9 L 6.7 L* Corrected Calcium 7.1 L 7.1 L Phosphorus Magnesium Total Bilirubin 0.3 0.3 AST 68 H 68 H ALT 27 22 Alkaline Phosphatase 670 H D 627 H D Troponin I B-Natriuretic Peptide Total Protein 6.7 6.2 Albumin 3.8 3.5 Globulin 2.9 2.7 Albumin/Globulin Ratio 1.3 1.3 Lipase Procalcitonin Ur Collection Type Urine Color Urine Clarity Urine pH Ur Specific [place] Urine Protein Urine Glucose (UA) Urine Ketones Urine Blood Urine Nitrite Urine Bilirubin Urine Urobilinogen (Auto) Ur Leukocyte Esterase Urine RBC Urine WBC Ur Squamous Epith Cells Amorphous Crystals Urine Bacteria Hyaline Casts 08/15/24 08/15/24 08/16/24 18:49 22:14 00:48 WBC RBC Hgb Hct MCV MCH MCHC RDW Std Deviation Plt Count Neut % (Auto) Lymph % (Auto) [place] % (Auto) Eos % (Auto) Baso % (Auto) Neut # (Auto) Lymph # (Auto) [place] # (Auto) Eos # (Auto) Baso # (Auto) Immature Gran # (Auto) Absolute Nucleated RBC Immature Gran % Nucleated RBC % PT INR APTT Sodium 130 L 133 L Potassium 6.0 H 5.6 H Chloride 96 L 95 L Carbon Dioxide 15.3 L 15.5 L Anion Gap 19 H 23 H BUN 132 H* 130 H* Creatinine 6.3 H* 6.2 H* Estim Creat Clear Calc 8.7 L 8.9 L eGFR 9 L* 9 L* BUN/Creatinine Ratio 21 H 21 H Glucose 102 96 Calculated Osmolality 303 H 308 H Lactic Acid 6.9 H* 8.0 H* 7.7 H* Calcium 6.7 L* 7.0 L Corrected Calcium 7.0 L 7.6 L Phosphorus Magnesium Total Bilirubin 0.3 0.3 AST 68 H 70 H ALT 22 23 Alkaline Phosphatase 636 H 604 H D Troponin I B-Natriuretic Peptide Total Protein 6.3 5.9 Albumin 3.6 3.3 L Globulin 2.7 2.6 Albumin/Globulin Ratio 1.3 1.3 Lipase Procalcitonin Ur Collection Type Urine Color Urine Clarity Urine pH Ur Specific [place] Urine Protein Urine Glucose (UA) Urine Ketones Urine Blood Urine Nitrite Urine Bilirubin Urine Urobilinogen (Auto) Ur Leukocyte Esterase Urine RBC Urine WBC Ur Squamous Epith Cells Amorphous Crystals Urine Bacteria Hyaline Casts 08/16/24 05:16 WBC 6.6 RBC 3.69 L Hgb 10.5 L Hct 32.5 L MCV 88 MCH 28.5 MCHC 32.3 RDW Std Deviation 53.3 H Plt Count 188 D Neut % (Auto) 71 Lymph % (Auto) 5 L [place] % (Auto) 19 H Eos % (Auto) 1 Baso % (Auto) 0 Neut # (Auto) 4.7 Lymph # (Auto) 0.3 L [place] # (Auto) 1.2 H Eos # (Auto) 0.1 Baso # (Auto) 0.0 Immature Gran # (Auto) 0.26 H Absolute Nucleated RBC 0.05 H Immature Gran % 4 H Nucleated RBC % 1 H PT INR APTT Sodium 131 L Potassium 5.7 H Chloride 92 L Carbon Dioxide 17.5 L Anion Gap 22 H BUN 138 H* Creatinine 6.4 H* Estim Creat Clear Calc 9.0 L eGFR 9 L* BUN/Creatinine Ratio 22 H Glucose 90 Calculated Osmolality 307 H Lactic Acid 7.4 H* Calcium 6.6 L* Corrected Calcium 7.1 L Phosphorus 10.4 H Magnesium 3.1 H Total Bilirubin 0.3 AST 74 H ALT 29 Alkaline Phosphatase 644 H D Troponin I B-Natriuretic Peptide Total Protein 5.8 Albumin 3.4 Globulin 2.4 Albumin/Globulin Ratio 1.4 Lipase Procalcitonin Ur Collection Type Urine Color Urine Clarity Urine pH Ur Specific [place] Urine Protein Urine Glucose (UA) Urine Ketones Urine Blood Urine Nitrite Urine Bilirubin Urine Urobilinogen (Auto) Ur Leukocyte Esterase Urine RBC Urine WBC Ur Squamous Epith Cells Amorphous Crystals Urine Bacteria Hyaline Casts Quality Measures Quality Measures none Advance care planning discussed with:: patient Assessment & Plan Assessment Current Active Medications: Generic Name Dose Route Start Last Admin Trade Name Freq PRN Reason Stop Dose Admin Acetaminophen 650 mg 08/16/24 08:35 Acetaminophen 325 Mg Tablet PO 09/14/24 13:53 Q6H PRN Fever >100.3 or pain (1-3) Amiodarone HCl 200 mg 08/15/24 15:30 08/16/24 09:14 Amiodarone Hcl 200 Mg Tablet PO 09/14/24 15:29 200 mg DAILY JADE Administration Calcium Carbonate 600 mg 08/16/24 09:00 08/16/24 09:15 Calcium Carbonate 600 Mg Tablet PO 09/15/24 08:59 600 mg QDAY JADE Administration Docusate Sodium 100 mg 08/15/24 15:13 Docusate Sod Liqd 100 Mg/10 Ml Udc PO 09/14/24 20:59 BID PRN constipation Protocol Heparin Sodium (Porcine) 5,000 unit 08/15/24 21:00 08/16/24 09:24 Heparin Sod Inj 5000 Unit/Ml Vial SC 08/29/24 20:59 5,000 unit Q12HR JADE Administration Hydromorphone HCl 1 mg 08/16/24 08:30 Hydromorphone Inj 2 Mg/Ml Vial IVP 08/21/24 08:29 Q4HR PRN Pain 7-10 Hydromorphone HCl 0.5 mg 08/16/24 08:32 08/16/24 08:53 Hydromorphone Inj 2 Mg/Ml Vial IVP 08/20/24 15:14 0.5 mg Q4HR PRN Administration pain 4-6 Doxycycline Hyclate 100 mg/ 100 mls @ 100 mls/hr 08/15/24 21:00 08/15/24 21:39 Sodium Chloride IV 08/22/24 20:59 Infused BID JADE Infusion Ceftriaxone Sodium/Dextrose 50 mls @ 100 mls/hr 08/16/24 09:00 08/16/24 08:54 Rocephin/D5w 1gm Iv Premix IV 08/23/24 08:59 100 mls/hr QDAY JADE Administration Sodium Chloride 1,000 mls @ 100 mls/hr 08/16/24 08:16 08/16/24 08:58 Ns IV 08/16/24 18:15 100 mls/hr .Q10H JADE Administration Megestrol Acetate 400 mg 08/15/24 15:30 08/16/24 09:07 Megestrol Acet Susp 400 Mg/10 Ml Udc PO 09/14/24 15:29 400 mg DAILY JADE Administration Midodrine 5 mg 08/15/24 21:00 08/16/24 09:14 Midodrine 5 Mg Tablet PO 09/14/24 20:59 5 mg BID JADE Administration Ondansetron HCl 4 mg 08/15/24 14:57 Ondansetron Inj 2 Mg/Ml Inj 2 Ml IV 09/14/24 14:56 Q6HR PRN NAUSEA OR VOMITING Protocol Pantoprazole Sodium 40 mg 08/16/24 09:00 08/16/24 09:23 Pantoprazole Inj 40 Mg Vial IVP 09/15/24 08:59 40 mg QDAY JADE Administration Plan Patient is a 74-year-old male PMH of A-fib rate controlled on amiodarone, BPH, hypertension, hyperlipidemia, insomnia, history of gastric carcinoma with esophageal obstruction, pericardial effusion status post pericardiocentesis who presented to ED today after experiencing urinary retention for more than 12 hours. Denies any abdominal pain, suprapubic pain, dysuria. Endorses decreased oral intake solids and liquids due to dysphagia of underlying gastric carcinoma and esophageal mass. Patient admitted for management of PILAR in setting of urinary retention/poor oral intake and hyperkalemia. #Acute renal failure in setting of gastric carcinoma and tumor obstruction #Hypocalcemia #Hypermagnesemia #Hyperkalemia Insetting of gastric carcinoma and esophageal tumor obstruction. Patient has had poor oral intake including liquids. Significant weight loss in past month. Endorses no urinary output in past 12 hours. Denies any abdominal pain, suprapubic pain, dysuria. At home patient normally eats softened foods in small pieces with Ensure supplement. CT abdomen pelvis showed no findings of urinary retention, bladder expansion, no significant prostatomegaly. EKG showed normal sinus rhythm with first-degree AV block, peaking of Twaves, negative troponins. Calcium 7.0, magnesium 3.5, potassium 6.7 on admission. -Nephrology Dr. Parsons was consulted ?hold fluids -Patient received 5 units regular insulin in ED for hyperkalemia ?S/p calcium gluconate x 1 -patiromer 8.4 g x 1 -s/p Bicarb drip 150 mEq 1 L D5W x 1 -pending dialysis catheter -Sevelamer x 1 # Acute metabolic encephalopathy Most likely in setting of acute renal failure with increasing uremia. BUN 142. -Anticipate improved will after dialysis ?Continue monitoring #Anion gap metabolic acidosis #Elevated lactic acidosis Most likely d in setting of underlying kidney failure. Admission lactic acidosis 5.9. Status post 2 L bolus fluids, lactic acid increased to 7.9 -dialysis -s/p Bicarb drip 150 mEq in 1 L D5W x 1 ? Monitor CMP #CAP CT abdomen pelvis showed significant bilateral pneumonia with chest x-ray showing more prominence in right lung. Patient is denying any coughing or shortness of breath, fever or chills. Denies any close sick contacts. Currently saturating at 98% via 2 L nasal cannula. -IV doxycycline 100 BID -IV Rocefin 1 gm daily #Hx gastric carcinoma with gastric outlet obstruction Diagnosis made 06/2024. 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 Patient has been following with Dr. Guevara on oncology. Currently has port cath placed for chemotherapy. Experiencing decreased appetite, fatigue, dysphagia. Poor oral intake with significant weight loss. -Dr. Guevara consulted -0.5 mg IV Dilaudid every 4 hours as needed for pain ? Megestrol for appetite stimulant ? Zofran 4 mg every 6 hours as needed for nausea ? Pantoprazole 40 mg IV daily ? Refer to speech pathology--started patient on blenderized diet and boost ? Referral to dietitian ? Aspiration precautions #Hx atrial fibrillation, rate controlled EKG showed mild normal sinus rhythm. -Jack vasc score 2 -continue amiodarone 200 mg daily -hold metoprolol succinate 100 mg daily due to soft blood pressure #Hx of possible hypotension Patient was recently started on midodrine [address] Spencer outpatient. -Continue midodrine 5 mg twice daily -Hold all antihypertensives #Hx BPH -Continue tamsulosin 0.4 mg PO daily ? Finasteride 5 mg p.o. daily Health maintenance: Dispo: pending dialysis catheter DVT prophylaxis: Subcu heparin CODE STATUS: Full code Diet: Blenderized The patient's management plan was discussed with my attending physician Dr. Anna and seniors Dr. Pizano. Jacquelyn Beckford, PGY-1 Attending Provider Attestation/Addendum I have discussed and was present for the essential components of the history, physical examination, diagnosis, and treatment plan with the resident. I agree with the patient's care as documented by the resident and amended herein by me. Jaswinder Anna DO. Patient seen and evaluated this AM. Patient altered today, significant labs include a hemoglobin of 10, potassium 5.7, sodium 131, chloride 92, bicarb 17.5, BUN 138 and creatinine stable at 6.4. Lactic acid slight downtrend to 7.4 today. Patient will need dialysis, patient's family wishes to proceed forward with dialysis catheter, orders placed. Hold off on PEG tube for now, will correct patient's electrolyte abnormalities and hopefully appetite will improve however we can try pur?ed diet with boost supplementation for now and see how the patient tolerates. Will continue ceftriaxone and Doxy for suspected pneumonia, patient on rate and rhythm control for atrial fibrillation. Patient does have Chemo-Port placed, will replete electrolytes as necessary, follow-up with cultures and continue to monitor closely. Although this document has been carefully reviewed, there may still be some phonetic and other typographical errors. These errors are purely grammatical due to imperfections in the software program and should not be construed in any way to compromise the substance of the patient's medical care during this visit.
--- NOTE | 2024-08-16 09:53 | ESCONSULT_ITS ---
Documented by User: Leida Parsons MD 08/19/24 18:15 History of Present Illness Data of Consult Consult date: 08/16/24 Requesting Physician: Rahat Robbins MD Primary Care Provider: Phuc Soetlo MD Consult Narrative Reason for consult: PILAR cc:: cc: Rahat Robbins MD Review of Systems Review of Systems Narrative Review of Systems: Patient seems to be very restless. Limited review of systems although per family has been restless with some mental status changes. Past Medical History Past Medical History NEUROLOGIC: Positive Cerebrovascular Accident; Negative Neurological Disorders or Seizures CARDIAC: Positive Cardiac Disorders, Angina, Coronary Artery Disease, Hypercholesterolemia and Hypertension; Negative Myocardial Infarction or Congestive Heart Failure RESPIRATORY: Positive Chronic Obstructive Pulmonary Disease (COPD), Asthma, Bronchitis, Pneumonia and Sleep Apnea GASTROINTESTINAL: Positive Gastrointestinal Bleed, Ulcer and Gastroesophageal Reflux Disease GENITOURINARY: Negative Renal Disease or Kidney Stones MUSCULOSKELETAL: Positive Arthritis; Negative Fractures (plate in back) ENT: Positive Cataracts ENDOCRINE: Negative Diabetes Mellitus Type 1 or Diabetes Mellitus Type 2 HEMATOLOGIC: Positive Anemia; Negative Sickle Cell Disease PSYCHO/SOCIAL: Positive Depression and Anxiety OTHER HISTORY: Positive Blood Transfusions, Chicken Pox, Measles, Mumps and Cancer; Negative Falls, Blood Transfusion Reaction, Anesthesia Reactions or Chemotherapy Family History FAMILY HISTORY: Positive Family Cardiac Disorders and Family Cancer Surgical History SURGICAL: Positive Coronary Stent, Cardiac Catheterization and Angiogram; Negative Ear Surgery or Abdominal Surgery Social History SOCIAL: Active tobacco smoker occasionally drinks alcohol denies illicit drug use SMOKING STATUS: Current every day smoker SUBSTANCE USE: does not use Past Medical History Comments PMH COMMENT: History of back surgery clot removed from neck 6 CVA coronary artery disease COPD depression Meds Home Medications and Allergies Home Medications ?Medication ?Instructions ?Recorded ?Confirmed ?Type famotidine 20 mg tablet (Pepcid) 20 mg PO HS #0 tabs 09/30/15 08/18/24 History finasteride 5 mg tablet 5 mg PO HS 07/06/24 08/18/24 History mirtazapine 15 mg tablet 15 mg PO HS 07/06/24 08/18/24 History rosuvastatin 40 mg tablet 40 mg PO HS 07/06/24 08/18/24 History tamsulosin 0.4 mg capsule 0.4 mg PO QDAY 07/06/24 08/18/24 History metoprolol succinate 100 mg 100 mg PO QDAY 08/01/24 08/18/24 History tablet,extended release 24 hr zolpidem 10 mg tablet 10 mg PO HS 08/01/24 08/18/24 History midodrine 5 mg tablet 5 mg PO BID 08/18/24 08/18/24 History oxycodone 5 mg tablet 5 mg PO [id number] PRN pain 08/18/24 08/18/24 History Allergies Allergy/AdvReac Type Severity Reaction Status Date / Time No Known Allergies Allergy Verified 07/12/24 20:13 Exam Vital Signs Temp Pulse Resp BP Pulse Ox O2 Del Method O2 Flow Rate 36.6 C 81 19 98/52 L 90 L Nasal Cannula 1.5 08/16/24 08:00 08/16/24 09:14 08/16/24 08:00 08/16/24 09:14 08/16/24 08:00 08/16/24 08:00 08/16/24 08:00 Narrative Exam General: Alert and oriented x3, cachectic, difficulty in speaking, cooperative Eyes: Pupils are equal and reactive to light bilaterally HEENT: Atraumatic, normocephalic. No JVD noted. Mucosa dry. Cardiovascular: Normal S1 and S2. Regular rate and rhythm. No pitting edema Respiratory: Lungs are clear to auscultation bilaterally. No wheezing or crackles heard. Abdomen: Soft, nontender, not distended, normal bowel sounds. Skin: Warm to touch, dry, no rashes noted, senile purpura Musculoskeletal: No gross injuries. Able to move all 4 extremities. Neuro: Alert and oriented x3. Patient seems to be confused and restless Results Labs 08/19/24 04:36 08/19/24 04:36 Labs: Short CBC 08/15/24 08/16/24 Range/Units 10:04 05:16 WBC 8.1 6.6 (3.8-10.6) Thou/mm3 Hgb 11.4 L 10.5 L (13.5-16.0) g/dL Hct 34.5 L 32.5 L (41.0-53.0) % Plt Count 220 D 188 D (140-440) Thou/mm3 BMP 08/15/24 08/15/24 08/15/24 10:04 14:32 16:36 Sodium 127 L 128 L 132 L Potassium 6.7 H* 6.4 H* 6.2 H* Chloride 90 L 96 L 96 L Carbon Dioxide 17.2 L 14.8 L* 15.7 L BUN 141 H* 135 H* 133 H* Creatinine 6.7 H* 6.5 H* 6.3 H* Glucose 92 96 80 Calcium 7.0 L 6.9 L 6.7 L* 08/15/24 08/16/24 08/16/24 18:49 00:48 05:16 Sodium 130 L 133 L 131 L Potassium 6.0 H 5.6 H 5.7 H Chloride 96 L 95 L 92 L Carbon Dioxide 15.3 L 15.5 L 17.5 L BUN 132 H* 130 H* 138 H* Creatinine 6.3 H* 6.2 H* 6.4 H* Glucose 102 96 90 Calcium 6.7 L* 7.0 L 6.6 L* Cardiac Enzymes 08/15/24 Range/Units 10:04 Troponin I < 0.020 (0.0-0.045) ng/mL Liver Function 08/15/24 08/15/24 08/15/24 Range/Units 10:04 14:32 16:36 Total Bilirubin 0.4 0.3 0.3 (0.3-1.2) mg/dL AST 65 H 68 H 68 H (0-34) U/L ALT 22 27 22 (10-49) U/L Alkaline Phosphatase 710 H 670 H D 627 H D (46-116) U/L Albumin 3.9 3.8 3.5 (3.4-4.8) gm/dL 08/15/24 08/16/24 08/16/24 Range/Units 18:49 00:48 05:16 Total Bilirubin 0.3 0.3 0.3 (0.3-1.2) mg/dL AST 68 H 70 H 74 H (0-34) U/L ALT 22 23 29 (10-49) U/L Alkaline Phosphatase 636 H 604 H D 644 H D (46-116) U/L Albumin 3.6 3.3 L 3.4 (3.4-4.8) gm/dL Urine 08/15/24 Range/Units 09:47 Urine Color Yellow (Lt Yel-Yel) Urine Clarity Hazy (Clear/Hazy) Urine pH 5.5 (5.0-7.0) Ur Specific [place] 1.018 (1.001-1.035) Urine Protein 2+ A (Neg - Trace) Urine Glucose (UA) Negative (Negative) Assessment & Plan Additional Assessment & Plan Additional Plan: Summary: Mr. Da Silva is a 74-year-old male PMH of A-fib rate controlled on amiodarone, BPH, hypertension, hyperlipidemia, insomnia, history of gastric carcinoma with esophageal obstruction, pericardial effusion status post pericardiocentesis who presented to ED today after experiencing urinary retention for more than 12 hours. Denies any abdominal pain, suprapubic pain, dysuria. Endorses decreased oral intake solids and liquids due to dysphagia of underlying gastric carcinoma and esophageal mass. Patient admitted for management of PILAR in setting of urinary retention/poor oral intake and hyperkalemia. Patient had continually decreased urine output, confusion and hyperkalemia, nephrology consulted, started patient on hemodialysis. #Acute renal failure #Hypocalcemia #Hypermagnesemia #Hyperkalemia #Acute metabolic encephalopathy #Anion gap metabolic acidosis Suspect prerenal azotemia leading towards ATN with decreased urine output-in the setting of gastric carcinoma and esophageal tumor obstruction. Patient has had poor oral intake including liquids. Significant weight loss in past month. Endorses no urinary output in past 12 hours. Denies any abdominal pain, suprapubic pain, dysuria. At home patient normally eats softened foods in small pieces with Ensure supplement. CT abdomen pelvis showed no findings of urinary retention, bladder expansion, no significant prostatomegaly. Calcium 7.0, magnesium 3.5, potassium 6.7 on admission. Patient did not improve with IV fluids, nephrology was consulted, patient did receive IV insulin multiple times for hyperkalemia, continues to have hyperkalemia despite being on potassium binders. Patient has had minimal urine output in setting of acute renal failure and poor oral intake, patient' mentation has worsened compared to admission, more confused, discussed with family agreeable to start dialysis, patient will receive dialysis today after temporary dialysis catheter placement. Discussed with ICU team to assist with placement of temporary catheter. Patient's potassium continues to remain elevated. Plan -Scheduled for hemodialysis today, anticipate no removal of fluid -Scheduled for permanent dialysis catheter placement with IR -Will continue to monitor renal function, will continue with dialysis and patient -Monitor urine output closely -Monitor Potassium level #CAP #Hx gastric carcinoma with gastric outlet obstruction #Hx atrial fibrillation, rate controlled #Hx of possible hypotension #Hx BPH Management as per primary team Case discussed with Attending Dr. Parsons. Forrest Noland PGY1 Patient seen and examined with resident physician Dr. Noland. Note reviewed, agree with findings and recommendations. Vas-Cath placed by ICU team as IR was not available due to severe azotemia, metabolic encephalopathy. Patient on dialysis. Tolerating dialysis without any problems. Hemodialysis for 2 hours, 2K, ultrafiltration 0 L, Epogen 6000, no heparin ordered. Plan of care discussed with the dialysis nurse. Please see dialysis flowsheet for further details. Next dialysis scheduled for tomorrow. He needs a PermCath placed by IR. Thank you Rahat for allowing me to participate in the care of Documented by User: Forrest Noland MD 08/17/24 14:12 History of Present Illness Consult Narrative History of present illness: Mr. Da Silva is a 74-year-old male with past medical history of A-fib (rate controlled on amiodarone), BPH, hypertension, hyperlipidemia, insomnia, history of gastric carcinoma with esophageal obstruction, pericardial effusion status post pericardiocentesis who presented to ED on 08/15 after experiencing urinary retention. 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 Underwent pericardiocentesis. During this admission he presented with symptoms of urinary retention have been ongoing since past 12 hours. Patient was confused, history obtained from family at bedside who stated that patient has had poor oral intake with difficulty swallowing due to obstruction. Has had significant weight loss and dysphagia. Patient denies any dysuria but endorses difficulty in maintaining stream. He is compliant with BPH medications. Oncologist Dr. Guevara has been following patient since previous discharge. Patient has Port-A-cath placed in preparation for chemotherapy. He denies any constipation, diarrhea, blood in the stool, abdominal pain, fever, or chills. Endorses weakness. At home, diet consists of soft foods and little pieces. No issues of aspiration. ED course significant for, vitals of blood pressure 108/59, pulse 75, 92% O2 on room air. ED labs revealed WBC 8.1, hemoglobin 11.4, platelets 228, hyponatremic 128, hyperkalemic 6.7, bicarb 17.2, AG 20, Cr 6.7, lactic acid 5.9, corrected calcium 7.0, magnesium 3.5, ALP 710, BNP 512, procalcitonin 0.99. UA negative. EKG showed normal sinus rhythm with first-degree AV block, peaking of Twaves, negative troponins. Chest x-ray bilateral pneumonia more severe in right lung. CT abdomen pelvis showing bibasilar pneumonia, cirrhosis, no significant prostatomegaly. In ED patient was given calcium carbonate x 1, 2 L bolus normal saline, 5 units regular insulinAmp D5W, Rocephin times 1 g x 1, azithromycin 500 mg x 1. Stat repeat CMP no significant improvement of potassium at 6.4, worsening acidosis bicarb 14.8, creatinine 6.5 calcium 7.1, 3 mag 3.5. Repeat lactic acid elevated to 7.9. Patient admitted for managemenet of PILAR in setting of urinary retention/poor oral intake and hyperkalemia. Nephrology consulted for same. Home medications amiodarone 200 mg p.o. daily metoprolol succinate 50 twice daily, Lasix 40 daily, lidocaine patch, citalopram 40 mg p.o. daily, famotidine 20 mg, trazodone 100 mg, mirtazapine 15 mg, finasteride 5 mg, rosuvastatin 40 mg, tamsulosin 0.4 mg Nephrology was consulted for PILAR on CKD, patient has had minimal urine output in setting of acute renal failure and poor oral intake, patient' mentation has worsened compared to admission, more confused, discussed with family agreeable to start dialysis, patient will receive dialysis today after temporary dialysis catheter placement. Discussed with ICU team to assist with placement of temporary catheter. Patient's potassium continues to remain elevated. Review of Systems Review of Systems ROS Unobtainable: unobtainable due to mental status Meds Home Medications and Allergies Home Medications ?Medication ?Instructions ?Recorded ?Confirmed ?Type famotidine 20 mg tablet (Pepcid) 20 mg PO HS #0 tabs 09/30/15 08/18/24 History finasteride 5 mg tablet 5 mg PO HS 07/06/24 08/18/24 History mirtazapine 15 mg tablet 15 mg PO HS 07/06/24 08/18/24 History rosuvastatin 40 mg tablet 40 mg PO HS 07/06/24 08/18/24 History tamsulosin 0.4 mg capsule 0.4 mg PO QDAY 07/06/24 08/18/24 History metoprolol succinate 100 mg 100 mg PO QDAY 08/01/24 08/18/24 History tablet,extended release 24 hr zolpidem 10 mg tablet 10 mg PO HS 08/01/24 08/18/24 History midodrine 5 mg tablet 5 mg PO BID 08/18/24 08/18/24 History oxycodone 5 mg tablet 5 mg PO [id number] PRN pain 08/18/24 08/18/24 History Allergies Allergy/AdvReac Type Severity Reaction Status Date / Time No Known Allergies Allergy Verified 07/12/24 20:13 Exam Narrative Exam General: Alert and oriented x3, cachectic, difficulty in speaking, cooperative Eyes: Pupils are equal and reactive to light bilaterally HEENT: Atraumatic, normocephalic. No JVD noted. Mucosa dry. Cardiovascular: Normal S1 and S2. Regular rate and rhythm. No pitting edema Respiratory: Lungs are clear to auscultation bilaterally. No wheezing or crackles heard. Abdomen: Soft, nontender, not distended, normal bowel sounds. Skin: Warm to touch, dry, no rashes noted, senile purpura Musculoskeletal: No gross injuries. Able to move all 4 extremities. Neuro: Alert and oriented x3. No focal neuro deficits. Psych: Normal affect and mood Results Labs 08/19/24 04:36 08/19/24 04:36 Assessment & Plan Additional Assessment & Plan Additional Plan: Summary: Mr. Da Silva is a 74-year-old male PMH of A-fib rate controlled on amiodarone, BPH, hypertension, hyperlipidemia, insomnia, history of gastric carcinoma with esophageal obstruction, pericardial effusion status post pericardiocentesis who presented to ED today after experiencing urinary retention for more than 12 hours. Denies any abdominal pain, suprapubic pain, dysuria. Endorses decreased oral intake solids and liquids due to dysphagia of underlying gastric carcinoma and esophageal mass. Patient admitted for management of PILAR in setting of urinary retention/poor oral intake and hyperkalemia. Patient had continually decreased urine output, confusion and hyperkalemia, nephrology consulted, started patient on hemodialysis. #Acute renal failure #Hypocalcemia #Hypermagnesemia #Hyperkalemia #Acute metabolic encephalopathy #Anion gap metabolic acidosis Insetting of gastric carcinoma and esophageal tumor obstruction. Patient has had poor oral intake including liquids. Significant weight loss in past month. Endorses no urinary output in past 12 hours. Denies any abdominal pain, suprapubic pain, dysuria. At home patient normally eats softened foods in small pieces with Ensure supplement. CT abdomen pelvis showed no findings of urinary retention, bladder expansion, no significant prostatomegaly. Calcium 7.0, magnesium 3.5, potassium 6.7 on admission. Patient did not improve with IV fluids, nephrology was consulted, patient did receive IV insulin multiple times for hyperkalemia, continues to have hyperkalemia despite being on potassium binders. Patient has had minimal urine output in setting of acute renal failure and poor oral intake, patient' mentation has worsened compared to admission, more confused, discussed with family agreeable to start dialysis, patient will receive dialysis today after temporary dialysis catheter placement. Discussed with ICU team to assist with placement of temporary catheter. Patient's potassium continues to remain elevated. Plan -Scheduled for hemodialysis today, anticipate no removal of fluid -Scheduled for permanent dialysis catheter placement with IR -Will continue to monitor renal function, will continue with dialysis and patient -Monitor urine output closely -Monitor Potassium level #CAP #Hx gastric carcinoma with gastric outlet obstruction #Hx atrial fibrillation, rate controlled #Hx of possible hypotension #Hx BPH Management as per primary team Case discussed with Attending Dr. Parsons. Forrest Noland PGY1
[2024-08-16] MEDS: DOXYCYCLINE INJ 100 MG in SODIUM CHLORIDE 0.9% (P) 100 ML IV ×2 (10:22→20:46)
[2024-08-16] MEDS: PATIROMER CALCIUM 8.4 GM PACKET (NON-FORM) 4.2 GM PO (11:11)
[2024-08-16] MEDS: HYDROmorphone INJ 2 MG/ML VIAL 1 MG IVP (11:43)
[2024-08-16 14:34] LABS: Anion Gap 18 (7-16); Carbon Dioxide 20.3 mMol/L (20.0-31.0); Chloride 92 mMol/L (98-107); Creatinine (Component) 6.5 mg/dL (0.6-1.3); Estimated Creatinine Clearance 8.9 mL/min (>60); Glucose 89 mg/dL (74-106); Potassium 5.9 mMol/L (3.4-5.1); Sodium 130 mMol/L (136-145); eGFR 8 See Note
[2024-08-16 14:36] LABS: Calcium 6.6 mg/dL (8.3-10.6)
[2024-08-16 14:38] LABS: BUN/Creatinine Ratio 22 Ratio (12-20); Osmolality,Calculated 306 (275-295)
[2024-08-16 14:44] LABS: Blood Urea Nitrogen 142 mg/dL (9-23)
--- NOTE | 2024-08-16 15:44 | PC.SS ---
Rounding Note: Plan is for patient to obtain perm cath placement today. Dr. Parsons consulting. Dr. Guevara recommendations are pending.
--- NOTE | 2024-08-16 16:01 | PC.NURSE ---
5400 MANAGER SIGN CALLED. ASKED WHEN DIALYSIS CATH WAS TO BE PLACED. WAS INFORMED WILL BE PLACED TOMORROW, TIME STILL UNKNOWN. CALLED DR RODRIGUEZ AND INFORMED DIALYSIS CATH PLACEMENT TO BE DONE TOMORROW, TIME UNKNOWN.
[2024-08-16] MEDS: ALBUTEROL/IPRATROPIUM (Duoneb) RT SOL 3 ML NEBU INH (16:16)
--- NOTE | 2024-08-16 17:17 | XR_ITS ---
Examination: AP chest single view Technique: AP portable upright chest single view Indications: Status post temporary dialysis catheter placement Findings: Left internal jugular temporary dialysis catheter tip SVC satisfactory position Port-A-Cath tip also SVC satisfactory position Extensive bilateral pneumonia again noted, severe right lung No significant cardiac enlargement Moderate osteopenia Impression: Interval left internal jugular temporary dialysis catheter insertion, tip SVC satisfactory position, no pneumothorax
--- NOTE | 2024-08-16 17:23 | PD.RESPROC ---
Procedures Procedure Date / Time 08/16/24 1503 Procedure Narrative Procedure Narrative: Attending Attestation: I was present for the entire procedure. No immediate complications. Follow up chest film confirms adequate position and no evidence of post-procedure PTX. Minimal blood loss. Central Line Placement Left IJ: Indication(s): other (hemodyalysis) Informed consent obtained: obtained from surrogate decision maker Time out done, and the following verified: correct patient, side and site, procedure, patient position and implants and/or equipment Patient placed on monitor/pulse ox: Yes Hand Hygiene: scrub, soap & water and alcohol-based hand rub Max Sterile Barrier Techniques used: cap, mask, sterile gown, sterile gloves and sterile full body drape Central line prep: Chlorhexidine scrub and sterile drapes applied Local anesthesia used: lidocaine 1% Amount of anesthesia used (mL): 3 Ultrasound used for placement: Yes Sterile Technique if Ultrasound used, including sterile gel: yes Central line lumen inserted: triple Post procedure: sutured in place, good blood return, all ports aspirated, flushed, capped and sterile dressing applied Post procedure x-ray: tip of catheter in good position and no pneumothorax seen Patient tolerated procedure: well EBL(ml): 5 Complications: none Procedure comment: Procedure performed under supervision of ICU attending Dr. Debra ANAYA. Ilir Dixon MD, PGY 2. Disclaimer: This note was dictated by speech recognition. Minor errors in authorization representative may be present due to voice recognition software.
[2024-08-16 18:01] LABS: Potassium 5.9 mMol/L (3.4-5.1)
[2024-08-16] MEDS: ALBUMIN HUMAN 25% IVPB 25 GM/100 ML BTL IV (18:31)
--- NOTE | 2024-08-16 18:34 | PC.NURSE ---
On dialysis at this time. BP trending down. Albumin 254 gms iv started for low bp support. Will monitor
--- NOTE | 2024-08-16 19:10 | PC.NURSE ---
ABOUT 1300 PATIENT WOKE UP VERY CONFUSED AND RESTLESS. STAYED AT BEDSIDE FOR PATIENTS SAFETY. FAMILY ALSO AT BEDSIDE. O2 SAT CHECKED AND 88%, O2 INCREASED TO 15L VIA OXYMASK. ONCE 02 SAT CAME UP DECREASED TO 10L. BREATHE SOUND AUSCULTATED AND PATIENT SOUNDS VERY TIGHT MINIMAL AIR EXCHANGE AND RHONCHI. DR CHACON CALLED AND INFORMED OF CONFUSION, RESTLESSNESS AND LUNG SOUNDS. REQUESTED RT TX, STATED WOULD ORDER. ALSO INFORMED THAT PATIENT WAS GIVEN THE NEW INCREASED DOSE OF DILAUDID AND MAY BE RESPONSIBLE FOR RESTLESSNESS AND CONFUSION. MONITORED PATIENT CLOSELY, CHECKED EVERY 30MINS AND PRN [address] AT BEDSIDE TO KEEP PATIENT CALM DURING DEE CATH PLACEMENT. PATIENT MORE ORIENTED AND FOLLOWING COMMAND.
--- NOTE | 2024-08-16 20:42 | PC.NURSE ---
1st dialysis completed for 2 hrs. Tolerated well. No fluid removal per MD. Respiration even and unlabored. Sating at 98-99% on O2 at 8L/min via Oxy mask. Post VS stable. BP 138/68, HR 87, Temp. 98.2. Pt back in Tele RM 275. Family at bedside. Report given to Dena CHÁVEZ.
[2024-08-17] VITALS (31 sets, daily range): BP systolic 84–154; BP diastolic 47–81; PULSE 76–121; RESP 16–25; TEMP 36–36.8; O2SAT 90–98
[2024-08-17] MEDS: HYDROmorphone INJ 2 MG/ML VIAL 0.5 MG IVP ×3 (05:01→20:11)
[2024-08-17 05:58] LABS: Basophils % (Auto) 0 % (0-2.5); Eosinophils # (Auto) 0.1 Thou/mm3 (0.0-0.5); Eosinophils % (Auto) 1 % (0-10); Hematocrit 30.7 % (41.0-53.0); Hemoglobin 9.8 g/dL (13.5-16.0); Immature Granulocytes % (Auto) 4 % (0-0); Immature Granulocytes Auto 0.24 Thou/mm3 (0.00-0.00); Lymphocytes # (Auto) 0.3 Thou/mm3 (1.0-4.8); Lymphocytes % (Auto) 6 % (10-50); Mean Corpuscular HGB Conc 31.9 g/dl (31.0-37.0); Mean Corpuscular Hemoglobin 28.2 pg (25.0-35.0); Mean Corpuscular Volume 88 fL (80-100); Monocytes % (Auto) 17 % (0-12); Neutrophils # (Auto) 4.2 Thou/mm3 (1.8-7.7); Neutrophils % (Auto) 72 % (37-80); Nucleated Red Blood Cell # 0.04 Thou/mm3 (0.00-0.00); Nucleated Red Blood Cell % 1 /100 WBC (0); Platelet Count 149 Thou/mm3 (140-440); Red Blood Count 3.48 Miln/mm3 (4.50-5.90); White Blood Count 5.8 Thou/mm3 (3.8-10.6)
[2024-08-17 06:54] LABS: Alanine Aminotransferase 25 U/L (10-49); Albumin, Serum 3.8 gm/dL (3.4-4.8); Albumin/Globulin Ratio 1.5 (1.2-2.2); Alkaline Phosphatase 578 U/L (46-116); Anion Gap 18 (7-16); Aspartate Amino Transferase 66 U/L (0-34); BUN/Creatinine Ratio 19 Ratio (12-20); Bilirubin,Total 0.3 mg/dL (0.3-1.2); Calcium 7.4 mg/dL (8.3-10.6); Calcium (Corrected) 7.6 mg/dL (8.5-10.1); Carbon Dioxide 19.7 mMol/L (20.0-31.0); Chloride 95 mMol/L (98-107); Creatinine (Component) 5.6 mg/dL (0.6-1.3); Estimated Creatinine Clearance 10.4 mL/min (>60); Globulin 2.5 gm/dL (2.3-3.5); Glucose 56 mg/dL (74-106); Magnesium 2.8 mg/dL (1.6-2.6); Osmolality,Calculated 298 (275-295); Potassium 5.2 mMol/L (3.4-5.1); Sodium 133 mMol/L (136-145); Total Protein 6.3 gm/dL (5.7-8.2); eGFR 10 See Note
[2024-08-17 06:58] LABS: Blood Urea Nitrogen 108 mg/dL (9-23)
--- NOTE | 2024-08-17 07:00 | XR_ITS ---
Venous access removal left internal jugular temporary dialysis catheter Permanent tunneled dialysis catheter insertion, percutaneous Fluoroscopy AP chest, portable, 2 views Date and time of procedure: August 17, 2024 1405 hours INDICATIONS: Renal failure, need for long-term dialysis with permanent tunneled dialysis catheter Informed consent provided Technique: A timeout was completed verifying correct patient, procedure, site, positioning, and special equipment if applicable. The patient was placed in a dependent position appropriate for dialysis catheter placement based on the vein to be cannulated. The patient'sleft neck was prepped and draped in sterile fashion. Maximum Sterile Barrier Technique used including cap, mask, sterile gown, sterile gloves, and sterile full body drape. 0.35 wire guide placed through the existing temporary dialysis catheter 0.18 wire guide is introduced into the vein. 0.18 wire is introduced into the vena cava under fluoroscopy. Subcutaneous tunnel formed in the upper chest. Permanent tunneled dialysis catheter placed in the subcutaneous tunnel. Dilators were introduced over the J-wire guide after removing a temporary dialysis catheter Tunneled dialysis catheter is introduced through a dilator with venous sheath into the superior vena cava under fluoroscopic guidance. The catheter is sutured in place to the skin and a sterile dressing applied. Perfusion to the extremity distal to the point of catheter insertion is checked and found to be adequate Attending radiologist was present for the entire procedure Estimated blood loss2 cc. The patient tolerated the procedure well and there were no complications Impression: Venous access removal temporary left internal jugular dialysis catheter Successful permanent tunneled dialysis catheter insertion, percutaneous Fluoroscopy 0.7 minute radiation dose 2.47 milligray 2 spot fluoroscopic chest films. AP chest performed at completion procedure demonstrates satisfactory position dialysis catheter. May use dialysis catheter.
--- NOTE | 2024-08-17 08:11 | ESPR_ITS ---
Documentation for date of: 08/17/24 Subjective Subjective Interval history: Mr. Da Silva is a 74-year-old male with past medical history of A-fib (rate controlled on amiodarone), BPH, hypertension, hyperlipidemia, insomnia, history of gastric carcinoma with esophageal obstruction, pericardial effusion status post pericardiocentesis who presented to ED on 08/15 after experiencing urinary retention. 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 Underwent pericardiocentesis. During this admission he presented with symptoms of urinary retention have been ongoing since past 12 hours. Patient was confused, history obtained from family at bedside who stated that patient has had poor oral intake with difficulty swallowing due to obstruction. Has had significant weight loss and dysphagia. Patient denies any dysuria but endorses difficulty in maintaining stream. He is compliant with BPH medications. Oncologist Dr. Guevara has been following patient since previous discharge. Patient has Port-A-cath placed in preparation for chemotherapy. He denies any constipation, diarrhea, blood in the stool, abdominal pain, fever, or chills. Endorses weakness. At home, diet consists of soft foods and little pieces. No issues of aspiration. ED course significant for, vitals of blood pressure 108/59, pulse 75, 92% O2 on room air. ED labs revealed WBC 8.1, hemoglobin 11.4, platelets 228, hyponatremic 128, hyperkalemic 6.7, bicarb 17.2, AG 20, Cr 6.7, lactic acid 5.9, corrected calcium 7.0, magnesium 3.5, ALP 710, BNP 512, procalcitonin 0.99. UA negative. EKG showed normal sinus rhythm with first-degree AV block, peaking of Twaves, negative troponins. Chest x-ray bilateral pneumonia more severe in right lung. CT abdomen pelvis showing bibasilar pneumonia, cirrhosis, no significant prostatomegaly. In ED patient was given calcium carbonate x 1, 2 L bolus normal saline, 5 units regular insulinAmp D5W, Rocephin times 1 g x 1, azithromycin 500 mg x 1. Stat repeat CMP no significant improvement of potassium at 6.4, worsening acidosis bicarb 14.8, creatinine 6.5 calcium 7.1, 3 mag 3.5. Repeat lactic acid elevated to 7.9. Patient admitted for managemenet of PILAR in setting of urinary retention/poor oral intake and hyperkalemia. Nephrology consulted for same. Home medications amiodarone 200 mg p.o. daily metoprolol succinate 50 twice daily, Lasix 40 daily, lidocaine patch, citalopram 40 mg p.o. daily, famotidine 20 mg, trazodone 100 mg, mirtazapine 15 mg, finasteride 5 mg, rosuvastatin 40 mg, tamsulosin 0.4 mg Nephrology was consulted, patient had minimal urine output in setting of acute renal failure and poor oral intake, patient was also confused, family agreed to dialysis, patient will receive dialysis today after temporary dialysis catheter placement. Patient's potassium was 5.9 before dialysis yesterday. 08/17/2024: Patient seen at bedside, receiving dialysis treatment. Patient had 2 hours of dialysis treatment yesterday via temporary dialysis catheter, had no fluid removed. Patient continues to have minimal urine output, potassium 5.2 today, patient will receive another dialysis treatment today, plan to remove no fluid. Patient is scheduled for permanent dialysis catheter placement today. Will continue to monitor urine output and labs closely. Exam Vital Signs Temp Pulse Resp BP Pulse Ox O2 Del Method O2 Flow Rate 97.8 F 83 18 112/47 L 95 Nasal Cannula 4 08/17/24 08:02 08/17/24 08:02 08/17/24 08:02 08/17/24 08:02 08/17/24 08:02 08/17/24 04:00 08/17/24 08:02 Narrative Exam General: Alert and oriented x1, cachectic, difficulty in speaking, cooperative Eyes: Pupils are equal and reactive to light bilaterally HEENT: Atraumatic, normocephalic. No JVD noted. Mucosa dry. Cardiovascular: Normal S1 and S2. Regular rate and rhythm. No pitting edema Respiratory: Mild expiratory wheezing Abdomen: Soft, nontender, not distended, normal bowel sounds. Skin: Warm to touch, dry, no rashes noted, senile purpura Musculoskeletal: No gross injuries. Able to move all 4 extremities. Neuro: Alert and oriented x1. No gross neurological deficit, and patient able to move all 4 extremities. Objective Labs 08/19/24 04:36 08/19/24 04:36 Labs: Laboratory Results - last 24 hr 08/16/24 08/16/24 08/17/24 13:56 17:02 04:51 WBC 5.8 RBC 3.48 L Hgb 9.8 L Hct 30.7 L MCV 88 MCH 28.2 MCHC 31.9 RDW Std Deviation 53.0 H Plt Count 149 D Neut % (Auto) 72 Lymph % (Auto) 6 L [place] % (Auto) 17 H Eos % (Auto) 1 Baso % (Auto) 0 Neut # (Auto) 4.2 Lymph # (Auto) 0.3 L [place] # (Auto) 1.0 H Eos # (Auto) 0.1 Baso # (Auto) 0.0 Immature Gran # (Auto) 0.24 H Absolute Nucleated RBC 0.04 H Immature Gran % 4 H Nucleated RBC % 1 H Sodium 130 L 133 L Potassium 5.9 H 5.9 H 5.2 H D Chloride 92 L 95 L Carbon Dioxide 20.3 19.7 L Anion Gap 18 H 18 H BUN 142 H* 108 H* Creatinine 6.5 H* 5.6 H* D Estim Creat Clear Calc 8.9 L 10.4 L eGFR 8 L* 10 L* BUN/Creatinine Ratio 22 H 19 Glucose 89 56 L Calculated Osmolality 306 H 298 H Calcium 6.6 L* 7.4 L Corrected Calcium 7.6 L Phosphorus 9.0 H Magnesium 2.8 H Total Bilirubin 0.3 AST 66 H ALT 25 Alkaline Phosphatase 578 H D Total Protein 6.3 Albumin 3.8 Globulin 2.5 Albumin/Globulin Ratio 1.5 Quality Measures Quality Measures none Advance care planning discussed with:: patient Assessment & Plan Assessment Current Active Medications: Generic Name Dose Route Start Last Admin Trade Name Freq PRN Reason Stop Dose Admin Acetaminophen 650 mg 08/16/24 08:35 Acetaminophen 325 Mg Tablet PO 09/14/24 13:53 Q6H PRN Fever >100.3 or pain (1-3) Amiodarone HCl 200 mg 08/15/24 15:30 08/16/24 09:14 Amiodarone Hcl 200 Mg Tablet PO 09/14/24 15:29 200 mg DAILY JADE Administration Calcium Carbonate 600 mg 08/16/24 09:00 08/16/24 09:15 Calcium Carbonate 600 Mg Tablet PO 09/15/24 08:59 600 mg QDAY JADE Administration Docusate Sodium 100 mg 08/15/24 15:13 Docusate Sod Liqd 100 Mg/10 Ml Udc PO 09/14/24 20:59 BID PRN constipation Protocol Heparin Sodium (Porcine) 5,000 unit 08/15/24 21:00 08/16/24 09:24 Heparin Sod Inj 5000 Unit/Ml Vial SC 08/29/24 20:59 5,000 unit Q12HR JADE Administration Heparin Sodium (Porcine) 2,500 unit 08/16/24 19:24 Heparin Sod Inj 1000 Unit/Ml Vial 10 Ml INDWELLCAT 08/29/24 19:23 X1 PRN DIALYSIS Hydromorphone HCl 0.5 mg 08/16/24 08:32 08/17/24 05:01 Hydromorphone Inj 2 Mg/Ml Vial IVP 08/20/24 15:14 0.5 mg Q4HR PRN Administration pain 4-6 Doxycycline Hyclate 100 mg/ 100 mls @ 100 mls/hr 08/15/24 21:00 08/16/24 20:46 Sodium Chloride IV 08/22/24 20:59 100 mls/hr BID JADE Administration Ceftriaxone Sodium/Dextrose 50 mls @ 100 mls/hr 08/16/24 09:00 08/16/24 08:54 Rocephin/D5w 1gm Iv Premix IV 08/23/24 08:59 100 mls/hr QDAY JADE Administration Albumin Human 25 gm in 100 mls @ 100 mls/hr 08/16/24 11:44 08/16/24 18:31 Albuminar-25 Ivpb IV 100 mls/hr PRN PRN Administration DIALYSIS Megestrol Acetate 400 mg 08/15/24 15:30 08/16/24 09:07 Megestrol Acet Susp 400 Mg/10 Ml Udc PO 09/14/24 15:29 400 mg DAILY JADE Administration Midodrine 5 mg 08/15/24 21:00 08/16/24 20:43 Midodrine 5 Mg Tablet PO 09/14/24 20:59 5 mg BID JADE Administration Ondansetron HCl 4 mg 08/15/24 14:57 Ondansetron Inj 2 Mg/Ml Inj 2 Ml IV 09/14/24 14:56 Q6HR PRN NAUSEA OR VOMITING Protocol Pantoprazole Sodium 40 mg 08/16/24 09:00 08/16/24 09:23 Pantoprazole Inj 40 Mg Vial IVP 09/15/24 08:59 40 mg QDAY JADE Administration Plan Summary: Mr. Da Silva is a 74-year-old male PMH of A-fib rate controlled on amiodarone, BPH, hypertension, hyperlipidemia, insomnia, history of gastric carcinoma with esophageal obstruction, pericardial effusion status post pericardiocentesis who presented to ED today after experiencing urinary retention for more than 12 hours. Denies any abdominal pain, suprapubic pain, dysuria. Endorses decreased oral intake solids and liquids due to dysphagia of underlying gastric carcinoma and esophageal mass. Patient admitted for management of PILAR in setting of urinary retention/poor oral intake and hyperkalemia. Patient had continually decreased urine output, confusion and hyperkalemia, nephrology consulted, started patient on hemodialysis. #Acute renal failure #Hypocalcemia #Hypermagnesemia #Hyperkalemia #Acute metabolic encephalopathy #Anion gap metabolic acidosis Insetting of gastric carcinoma and esophageal tumor obstruction. Patient has had poor oral intake including liquids. Significant weight loss in past month. Endorses no urinary output in past 12 hours. Denies any abdominal pain, suprapubic pain, dysuria. At home patient normally eats softened foods in small pieces with Ensure supplement. CT abdomen pelvis showed no findings of urinary retention, bladder expansion, no significant prostatomegaly. Calcium 7.0, magnesium 3.5, potassium 6.7 on admission. Patient did not improve with IV fluids, nephrology was consulted, patient did receive IV insulin multiple times for hyperkalemia, continues to have hyperkalemia despite being on potassium binders. Patient started becoming confused, had signs of acute metabolic encephalopathy. Patient had temporary dialysis catheter placed on 08/16, received hemodialysis treatment for about 2 hours, no fluid was removed. Family agreed with dialysis Plan -Scheduled for hemodialysis today, anticipate no removal of fluid -Scheduled for permanent dialysis catheter placement today -Will continue to monitor renal function, will continue with dialysis and patient -Monitor urine output closely #CAP #Hx gastric carcinoma with gastric outlet obstruction #Hx atrial fibrillation, rate controlled #Hx of possible hypotension #Hx BPH Management as per primary team Case discussed with Attending Dr. Parsons. Forrest Noland PGY1 Attending Provider Attestation/Addendum Patient seen and examined with resident physician Dr. Noland. Note reviewed, agree with findings and recommendations. Patient currently seen on second dialysis. Tolerating dialysis without any problems. Hemodialysis for 2.5 hours, 2K, ultrafiltration 0 L, Epogen 6000, no heparin ordered. Plan of care discussed with the dialysis nurse. Please see dialysis flowsheet for further details. Third dialysis scheduled for tomorrow. Patient will be going for a left IJ PermCath today.
--- NOTE | 2024-08-17 09:16 | PC.NURSE ---
Pt HR trending up pt denies all c/o chest pain, pressure, BONNER, SOB, or discomfort will cont. to monitor
--- NOTE | 2024-08-17 09:46 | PC.NURSE ---
HR trending back up, pt cont's. to deny all complaints of discomfort, will cont. to monitor
--- NOTE | 2024-08-17 10:04 | PC.NURSE ---
Addendum entered by Carolyn Gray RN 08/17/24 10:09: BFR LOWERED TO 200 TO HELP ELEVATED HR, WILL CONT. TO MONITOR Original Note: PT JUST REPOSITIONED, PT DENIES ALL COMPLAINTS OF DISCOMFORT, WILL CONT. TO MONITOR
[2024-08-17] MEDS: AMIODARONE HCL 200 MG TABLET PO (10:11)
[2024-08-17] MEDS: PANTOPRAZOLE INJ 40 MG VIAL IVP (10:12)
[2024-08-17] MEDS: MEGESTROL ACET SUSP 400 MG/10 ML UDC PO (10:12)
[2024-08-17] MEDS: MIDODRINE 5 MG TABLET PO (10:12)
[2024-08-17] MEDS: HEPARIN SOD INJ 1000 UNIT/ML VIAL 10 ML 2500 UNIT INDWELLCAT (11:12)
[2024-08-17] MEDS: cefTRIAXone/D5w 1gm IV premix 50 ML IV (11:18)
[2024-08-17] MEDS: DOXYCYCLINE INJ 100 MG in SODIUM CHLORIDE 0.9% (P) 100 ML IV ×2 (11:18→20:10)
[2024-08-17] MEDS: LIDOCAINE 5% 1 PATCH TOP (11:31)
--- NOTE | 2024-08-17 12:11 | PD.RESPRO ---
Documentation for date of: 08/17/24 Subjective Subjective Interval history: Patient was seen and examined bedside. No acute overnight events. patients mentation seems to be improved from yesterday, able to answer appropriately. Labs showed mild improvement in the renal functions after receiving the dialysis yesterday. Dr. Parsons is following the patient and received dialysis this morning without any removal of fluid. Got TDC placement today for further dialysis sessions. Will continue to monitor renal functions and patient's mentation. Exam Vital Signs Temp Pulse Resp BP Pulse Ox O2 Del Method O2 Flow Rate 98.2 F 100 18 113/74 95 Nasal Cannula 6 08/17/24 11:01 08/17/24 11:01 08/17/24 11:01 08/17/24 11:01 08/17/24 11:01 08/17/24 04:00 08/17/24 11:01 Narrative Exam General: Awake. Slurred speech noted. HEENT: Normocephalic, atraumatic, mucous membranes moist. Heart: Regular rate and rhythm, no murmurs. Lungs: Clear to auscultation with no wheezing or crackles. Abdomen: Soft, nondistended, nontender, positive bowel sounds. ?No guarding or rebound tenderness. Neurologic: Alert and oriented 1-2, no gross neurological deficit, and patient able to move all 4 extremities. Extremities: No edema. Skin: No rash or ecchymoses. Objective Labs 08/18/24 05:16 08/18/24 05:16 Labs: Laboratory Results - last 24 hr 08/16/24 08/16/24 08/17/24 13:56 17:02 04:51 WBC 5.8 RBC 3.48 L Hgb 9.8 L Hct 30.7 L MCV 88 MCH 28.2 MCHC 31.9 RDW Std Deviation 53.0 H Plt Count 149 D Neut % (Auto) 72 Lymph % (Auto) 6 L [place] % (Auto) 17 H Eos % (Auto) 1 Baso % (Auto) 0 Neut # (Auto) 4.2 Lymph # (Auto) 0.3 L [place] # (Auto) 1.0 H Eos # (Auto) 0.1 Baso # (Auto) 0.0 Immature Gran # (Auto) 0.24 H Absolute Nucleated RBC 0.04 H Immature Gran % 4 H Nucleated RBC % 1 H Sodium 130 L 133 L Potassium 5.9 H 5.9 H 5.2 H D Chloride 92 L 95 L Carbon Dioxide 20.3 19.7 L Anion Gap 18 H 18 H BUN 142 H* 108 H* Creatinine 6.5 H* 5.6 H* D Estim Creat Clear Calc 8.9 L 10.4 L eGFR 8 L* 10 L* BUN/Creatinine Ratio 22 H 19 Glucose 89 56 L Calculated Osmolality 306 H 298 H Calcium 6.6 L* 7.4 L Corrected Calcium 7.6 L Phosphorus 9.0 H Magnesium 2.8 H Total Bilirubin 0.3 AST 66 H ALT 25 Alkaline Phosphatase 578 H D Total Protein 6.3 Albumin 3.8 Globulin 2.5 Albumin/Globulin Ratio 1.5 Quality Measures Quality Measures none Advance care planning discussed with:: patient and spouse Assessment & Plan Assessment Current Active Medications: Generic Name Dose Route Start Last Admin Trade Name Freq PRN Reason Stop Dose Admin Acetaminophen 650 mg 08/16/24 08:35 Acetaminophen 325 Mg Tablet PO 09/14/24 13:53 Q6H PRN Fever >100.3 or pain (1-3) Amiodarone HCl 200 mg 08/15/24 15:30 08/17/24 10:11 Amiodarone Hcl 200 Mg Tablet PO 09/14/24 15:29 200 mg DAILY JADE Administration Calcium Carbonate 600 mg 08/16/24 09:00 08/17/24 11:14 Calcium Carbonate 600 Mg Tablet PO 09/15/24 08:59 Not Given QDAY JAED Docusate Sodium 100 mg 08/15/24 15:13 Docusate Sod Liqd 100 Mg/10 Ml Udc PO 09/14/24 20:59 BID PRN constipation Protocol Heparin Sodium (Porcine) 5,000 unit 08/15/24 21:00 08/16/24 09:24 Heparin Sod Inj 5000 Unit/Ml Vial SC 08/29/24 20:59 5,000 unit Q12HR JADE Administration Heparin Sodium (Porcine) 2,500 unit 08/16/24 19:24 08/17/24 11:12 Heparin Sod Inj 1000 Unit/Ml Vial 10 Ml INDWELLCAT 08/29/24 19:23 2,500 unit X1 PRN Administration DIALYSIS Hydromorphone HCl 0.5 mg 08/16/24 08:32 08/17/24 08:33 Hydromorphone Inj 2 Mg/Ml Vial IVP 12/30/24 15:14 0.5 mg Q4HR PRN Administration pain 4-6 Doxycycline Hyclate 100 mg/ 100 mls @ 100 mls/hr 08/15/24 21:00 08/17/24 11:18 Sodium Chloride IV 08/22/24 20:59 100 mls/hr BID JADE Administration Ceftriaxone Sodium/Dextrose 50 mls @ 100 mls/hr 08/16/24 09:00 08/17/24 11:18 Rocephin/D5w 1gm Iv Premix IV 08/23/24 08:59 100 mls/hr QDAY JADE Administration Albumin Human 25 gm in 100 mls @ 100 mls/hr 08/16/24 11:44 08/16/24 18:31 Albuminar-25 Ivpb IV 100 mls/hr PRN PRN Administration DIALYSIS Lidocaine 1 patch 08/17/24 11:30 08/17/24 11:31 Lidocaine 5% 1 Patch TOP 09/16/24 11:29 1 patch DAILY JADE Administration Megestrol Acetate 400 mg 08/15/24 15:30 08/17/24 10:12 Megestrol Acet Susp 400 Mg/10 Ml Udc PO 09/14/24 15:29 400 mg DAILY JADE Administration Midodrine 5 mg 08/15/24 21:00 08/17/24 10:12 Midodrine 5 Mg Tablet PO 09/14/24 20:59 5 mg BID JADE Administration Ondansetron HCl 4 mg 08/15/24 14:57 Ondansetron Inj 2 Mg/Ml Inj 2 Ml IV 09/14/24 14:56 Q6HR PRN NAUSEA OR VOMITING Protocol Pantoprazole Sodium 40 mg 08/16/24 09:00 08/17/24 10:12 Pantoprazole Inj 40 Mg Vial IVP 09/15/24 08:59 40 mg QDAY JADE Administration Plan Patient is a 74-year-old male PMH of A-fib rate controlled on amiodarone, BPH, hypertension, hyperlipidemia, insomnia, history of gastric carcinoma with esophageal obstruction, pericardial effusion status post pericardiocentesis who presented to ED today after experiencing urinary retention for more than 12 hours. Denies any abdominal pain, suprapubic pain, dysuria. Endorses decreased oral intake solids and liquids due to dysphagia of underlying gastric carcinoma and esophageal mass. Patient admitted for management of PILAR in setting of urinary retention/poor oral intake and hyperkalemia. # Acute metabolic encephalopathy, resolving #Acute renal failure, likely prerenal in the setting of poor oral intake due to gastric carcinoma. -Patient is having poor oral intake secondary to gastric carcinoma and tumor obstructing the esophagus. -Came with decreased urine output -Denies fever, burning micturition, abdominal pain. -Came with altered sensorium. -Labs at the time of admission showed sodium 127, potassium 6.7, chloride 90, bicarb 17.2, anion gap 20, BUN 141, creatinine 6.7, lactate 5.9, calcium 7.1, magnesium 3.5. -Baseline creatinine is 0.9 on 07/31/2024 -CT abdomen pelvis showed no findings of urinary retention, bladder expansion, no significant prostatomegaly. -EKG showed normal sinus rhythm with first-degree AV block, peaking of Twaves, negative troponins. Plan -Nephrology Dr. Parsons was consulted -Patient got hemodialysis on 08/16, 08/17 -Renal dialysis catheter was placed -Will continue to monitor renal functions -Renally dose medication and avoid nephrotoxic drugs. #Hypocalcemia #Hypermagnesemia #Hyperkalemia -At the time of admission, calcium 7.1, magnesium 3.5, potassium is 6.7 -Likely due to combined poor oral intake and PILAR -On 08/17, potassium is 5.2, calcium is 7.4, magnesium is 2.8 Plan -Patient received 2 hemodialysis sessions on 08/16, 08/17 -Will continue to monitor electrolytes and manage accordingly. #Anion gap metabolic acidosis #Elevated lactic acidosis Most likely in the setting of underlying kidney failure. Admission lactic acidosis 5.9. Status post 2 L bolus fluids, lactic acid increased to 7.9 Plan -Patient was started on hemodialysis -Will continue to monitor labs #CAP CT abdomen pelvis showed significant bilateral pneumonia with chest x-ray showing more prominence in right lung. Patient is denying any coughing or shortness of breath, fever or chills. Denies any close sick contacts. Currently saturating at 98% via 2 L nasal cannula. -IV doxycycline 100 BID -IV Rocefin 1 gm daily #Hx gastric carcinoma with gastric outlet obstruction Diagnosis made 06/2024. 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 Patient has been following with Dr. Guevara on oncology. Currently has port cath placed for chemotherapy. Experiencing decreased appetite, fatigue, dysphagia. Poor oral intake with significant weight loss. -Dr. Guevara consulted -0.5 mg IV Dilaudid every 4 hours as needed for pain ? Megestrol for appetite stimulant ? Zofran 4 mg every 6 hours as needed for nausea ? Pantoprazole 40 mg IV daily ? Refer to speech pathology--started patient on blenderized diet and boost ? Referral to dietitian ? Aspiration precautions #Hx atrial fibrillation, rate controlled EKG showed mild normal sinus rhythm. -Jack vasc score 2 -continue amiodarone 200 mg daily -hold metoprolol succinate 100 mg daily due to soft blood pressure #Hx of possible hypotension Patient was recently started on midodrine [address] Spencer outpatient. -Continue midodrine 5 mg twice daily -Hold all antihypertensives #Hx BPH -Continue tamsulosin 0.4 mg PO daily ? Finasteride 5 mg p.o. daily Health maintenance: Dispo: Tunnel dialysis catheter is placed DVT prophylaxis: Subcu heparin CODE STATUS: Full code Diet: Blenderized Patient plan of care was discussed with the attending physician, Dr. Shoshana Oates, PGY1 Attending Provider Attestation/Addendum I have discussed and was present for the essential components of the history, physical examination, diagnosis, and treatment plan with the resident. I agree with the patient's care as documented by the resident and amended herein by me. Jaswinder Anna DO. Although this document has been carefully reviewed, there may still be some phonetic and other typographical errors. These errors are purely grammatical due to imperfections in the software program and should not be construed in any way to compromise the substance of the patient's medical care during this visit.
--- NOTE | 2024-08-17 12:30 | PC.NURSE ---
taking patient down to IR for Tunneled dialysis catheter insertion via gurney. pt on 4L NC, tachy in the 120's
[2024-08-17] MEDS: LIDOCAINE INJ PF 1% 5 ML VIAL INFL (13:58)
[2024-08-17] MEDS: HEPARIN SOD LOCK SYR 100 UNIT/ML 500 UNIT STFIELD (13:58)
[2024-08-17] MEDS: HEPARIN SOD INJ 1000 UNIT/ML VIAL 3500 UNIT INDWELLCAT (14:10)
--- NOTE | 2024-08-17 14:26 | PC.SS ---
Rounding Note: Plan is for the patient to obtain perm catheter placement today.
--- NOTE | 2024-08-17 14:26 | PC.SS ---
Update: Patient participated with dialysis today.
--- NOTE | 2024-08-17 17:10 | PC.NURSE ---
Dr Tirado made aware of pts op 100 ml in 12 hrs. pt was npo for most of the day. no new orders received
[2024-08-17] MEDS: DiphenhydrAMINE ELIX 25 MG/10 ML UDC 12.5 MG PO (23:22)
[2024-08-18] VITALS (30 sets, daily range): BP systolic 91–153; BP diastolic 58–78; PULSE 85–133; RESP 18–22; TEMP 36–37.1; O2SAT 24–100; BMI 20.4
[2024-08-18] MEDS: ALBUTEROL/IPRATROPIUM (Duoneb) RT SOL 3 ML NEBU INH ×4 (02:36→18:51)
[2024-08-18] MEDS: DOCUSATE SOD LIQD 100 MG/10 ML UDC PO (03:20)
[2024-08-18] MEDS: HYDROmorphone INJ 2 MG/ML VIAL 0.5 MG IVP (04:53)
[2024-08-18 06:30] LABS: Basophils # (Auto) 0.1 Thou/mm3 (0.0-0.2); Basophils % (Auto) 1 % (0-2.5); Eosinophils # (Auto) 0.1 Thou/mm3 (0.0-0.5); Eosinophils % (Auto) 1 % (0-10); Hematocrit 31.7 % (41.0-53.0); Hemoglobin 10.1 g/dL (13.5-16.0); Immature Granulocytes % (Auto) 8 % (0-0); Immature Granulocytes Auto 0.79 Thou/mm3 (0.00-0.00); Lymphocytes # (Auto) 0.6 Thou/mm3 (1.0-4.8); Lymphocytes % (Auto) 6 % (10-50); Mean Corpuscular HGB Conc 31.9 g/dl (31.0-37.0); Mean Corpuscular Hemoglobin 28.5 pg (25.0-35.0); Mean Corpuscular Volume 89 fL (80-100); Monocytes # (Auto) 1.1 Thou/mm3 (0.0-0.8); Monocytes % (Auto) 11 % (0-12); Neutrophils # (Auto) 7.4 Thou/mm3 (1.8-7.7); Neutrophils % (Auto) 74 % (37-80); Nucleated Red Blood Cell # 0.08 Thou/mm3 (0.00-0.00); Nucleated Red Blood Cell % 1 /100 WBC (0); Platelet Count 145 Thou/mm3 (140-440); RDW Standard Deviation 54.8 fL (35.1-43.9); Red Blood Count 3.55 Miln/mm3 (4.50-5.90)
[2024-08-18 07:04] LABS: Alanine Aminotransferase 30 U/L (10-49); Albumin, Serum 3.7 gm/dL (3.4-4.8); Albumin/Globulin Ratio 1.5 (1.2-2.2); Alkaline Phosphatase 570 U/L (46-116); Anion Gap 18 (7-16); Aspartate Amino Transferase 65 U/L (0-34); BUN/Creatinine Ratio 16 Ratio (12-20); Bilirubin,Total 0.4 mg/dL (0.3-1.2); Blood Urea Nitrogen 64 mg/dL (9-23); Calcium 8.4 mg/dL (8.3-10.6); Calcium (Corrected) 8.6 mg/dL (8.5-10.1); Carbon Dioxide 20.5 mMol/L (20.0-31.0); Chloride 97 mMol/L (98-107); Creatinine (Component) 4.1 mg/dL (0.6-1.3); Estimated Creatinine Clearance 14.2 mL/min (>60); Globulin 2.5 gm/dL (2.3-3.5); Glucose 68 mg/dL (74-106); Magnesium 2.4 mg/dL (1.6-2.6); Osmolality,Calculated 286 (275-295); Phosphorous 6.8 mg/dL (2.4-5.1); Sodium 135 mMol/L (136-145); Total Protein 6.2 gm/dL (5.7-8.2); eGFR 15 See Note
[2024-08-18] MEDS: DiphenhydrAMINE INJ 50 MG/ML VIAL 12.5 MG IV (08:54)
--- NOTE | 2024-08-18 09:01 | PC.NURSE ---
UF GOAL INCREASED 1L PER MD REQUEST TOLERATED AFTER 5 MIN PT'S HR WENT INTO THE 140'S PER SANITATION TANK WASHER. UF GOAL LOWERED TO 0.5L TOLERATED. PT REMAINED ASYMPTOMATIC AND DENIED ALL C/O CHEST PAIN, PRESSURE, BONNER, SOB, OR DISCOMFORT. WILL CONT. TO MONITOR.
--- NOTE | 2024-08-18 09:14 | ESPR_ITS ---
Documentation for date of: 08/18/24 Subjective Subjective Interval history: Mr. Da Silva is a 74-year-old male with past medical history of A-fib (rate controlled on amiodarone), BPH, hypertension, hyperlipidemia, insomnia, history of gastric carcinoma with esophageal obstruction, pericardial effusion status post pericardiocentesis who presented to ED on 08/15 after experiencing urinary retention. 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 Underwent pericardiocentesis. During this admission he presented with symptoms of urinary retention have been ongoing since past 12 hours. Patient was confused, history obtained from family at bedside who stated that patient has had poor oral intake with difficulty swallowing due to obstruction. Has had significant weight loss and dysphagia. Patient denies any dysuria but endorses difficulty in maintaining stream. He is compliant with BPH medications. Oncologist Dr. Guevara has been following patient since previous discharge. Patient has Port-A-cath placed in preparation for chemotherapy. He denies any constipation, diarrhea, blood in the stool, abdominal pain, fever, or chills. Endorses weakness. At home, diet consists of soft foods and little pieces. No issues of aspiration. ED course significant for, vitals of blood pressure 108/59, pulse 75, 92% O2 on room air. ED labs revealed WBC 8.1, hemoglobin 11.4, platelets 228, hyponatremic 128, hyperkalemic 6.7, bicarb 17.2, AG 20, Cr 6.7, lactic acid 5.9, corrected calcium 7.0, magnesium 3.5, ALP 710, BNP 512, procalcitonin 0.99. UA negative. EKG showed normal sinus rhythm with first-degree AV block, peaking of Twaves, negative troponins. Chest x-ray bilateral pneumonia more severe in right lung. CT abdomen pelvis showing bibasilar pneumonia, cirrhosis, no significant prostatomegaly. In ED patient was given calcium carbonate x 1, 2 L bolus normal saline, 5 units regular insulinAmp D5W, Rocephin times 1 g x 1, azithromycin 500 mg x 1. Stat repeat CMP no significant improvement of potassium at 6.4, worsening acidosis bicarb 14.8, creatinine 6.5 calcium 7.1, 3 mag 3.5. Repeat lactic acid elevated to 7.9. Patient admitted for managemenet of PILAR in setting of urinary retention/poor oral intake and hyperkalemia. Nephrology consulted for same. Home medications amiodarone 200 mg p.o. daily metoprolol succinate 50 twice daily, Lasix 40 daily, lidocaine patch, citalopram 40 mg p.o. daily, famotidine 20 mg, trazodone 100 mg, mirtazapine 15 mg, finasteride 5 mg, rosuvastatin 40 mg, tamsulosin 0.4 mg Nephrology was consulted, patient had minimal urine output in setting of acute renal failure and poor oral intake, patient was also confused, family agreed to dialysis, patient will receive dialysis today after temporary dialysis catheter placement. Patient's potassium was 5.9 before dialysis yesterday. 08/17/2024: Patient seen at bedside, receiving dialysis treatment. Patient had 2 hours of dialysis treatment yesterday via temporary dialysis catheter, had no fluid removed. Patient continues to have minimal urine output, potassium 5.2 today, patient will receive another dialysis treatment today, plan to remove no fluid. Patient is scheduled for permanent dialysis catheter placement today. Will continue to monitor urine output and labs closely. 08/18/24: Patient seen at bedside, receiving dialysis treatment. Goal is to remove about 1 L fluid today, patient has 1+ bilateral lower extremity edema, has increased oxygen requirement currently on 6 L oxygen via nasal cannula, patient did have permanent dialysis catheter placement yesterday, today patient complains of back pain, reports that he is tired of being in bed all the day, recommend physical therapy to work with patient, improve bed to chair time. Patient had good p.o. intake this morning, reports eating breakfast. Patient's BUN 64, creatinine 4.1 today, GFR 15. Will continue to monitor renal panel and urine output closely. Exam Vital Signs Temp Pulse Resp BP Pulse Ox O2 Del Method O2 Flow Rate 98.7 F 112 H 18 137/65 H 94 L Oxy Mask 6 08/18/24 08:00 08/18/24 09:00 08/18/24 08:00 08/18/24 09:00 08/18/24 08:00 08/18/24 07:55 08/18/24 08:00 Narrative Exam General: Alert and oriented x3, cachectic, cooperative Eyes: Pupils are equal and reactive to light bilaterally HEENT: Atraumatic, normocephalic. No JVD noted. Mucosa dry. Cardiovascular: Normal S1 and S2. Regular rate and rhythm. 1+ pitting edema Respiratory: Mild expiratory wheezing Abdomen: Soft, nontender, not distended, normal bowel sounds. Skin: Warm to touch, no rashes noted, senile purpura Musculoskeletal: No gross injuries. Able to move all 4 extremities. Neuro: Alert and oriented x3. No gross neurological deficit, and patient able to move all 4 extremities. Objective Labs 08/19/24 04:36 08/19/24 04:36 Labs: Laboratory Results - last 24 hr 08/18/24 05:16 WBC 10.0 D RBC 3.55 L Hgb 10.1 L Hct 31.7 L MCV 89 MCH 28.5 MCHC 31.9 RDW Std Deviation 54.8 H Plt Count 145 Neut % (Auto) 74 Lymph % (Auto) 6 L [place] % (Auto) 11 Eos % (Auto) 1 Baso % (Auto) 1 Neut # (Auto) 7.4 Lymph # (Auto) 0.6 L [place] # (Auto) 1.1 H Eos # (Auto) 0.1 Baso # (Auto) 0.1 Immature Gran # (Auto) 0.79 H Absolute Nucleated RBC 0.08 H Immature Gran % 8 H Nucleated RBC % 1 H Sodium 135 L Potassium 4.0 D Chloride 97 L Carbon Dioxide 20.5 Anion Gap 18 H BUN 64 H Creatinine 4.1 H* D Estim Creat Clear Calc 14.2 L eGFR 15 L BUN/Creatinine Ratio 16 Glucose 68 L Calculated Osmolality 286 Calcium 8.4 Corrected Calcium 8.6 Phosphorus 6.8 H Magnesium 2.4 Total Bilirubin 0.4 AST 65 H ALT 30 Alkaline Phosphatase 570 H Total Protein 6.2 Albumin 3.7 Globulin 2.5 Albumin/Globulin Ratio 1.5 Quality Measures Quality Measures none Advance care planning discussed with:: patient Assessment & Plan Assessment Current Active Medications: Generic Name Dose Route Start Last Admin Trade Name Freq PRN Reason Stop Dose Admin Acetaminophen 650 mg 08/16/24 08:35 Acetaminophen 325 Mg Tablet PO 09/14/24 13:53 Q6H PRN Fever >100.3 or pain (1-3) Albuterol/Ipratropium 3 ml 08/18/24 07:00 08/18/24 06:33 Albuterol/Ipratropium (Duoneb) Rt Zamzam 3 Ml Nebu INH 09/17/24 06:59 3 ml Q6HRRT JADE Administration Albuterol/Ipratropium 3 ml 08/18/24 01:57 08/18/24 02:36 Albuterol/Ipratropium (Duoneb) Rt Zamzam 3 Ml Nebu INH 09/17/24 02:59 3 ml Q4HRRT PRN Administration Wheezing Amiodarone HCl 200 mg 08/15/24 15:30 08/18/24 09:06 Amiodarone Hcl 200 Mg Tablet PO 09/14/24 15:29 Not Given DAILY JADE Calcium Carbonate 600 mg 08/16/24 09:00 08/18/24 09:06 Calcium Carbonate 600 Mg Tablet PO 09/15/24 08:59 Not Given QDAY JADE Docusate Sodium 100 mg 08/15/24 15:13 08/18/24 03:20 Docusate Sod Liqd 100 Mg/10 Ml Udc PO 09/14/24 20:59 100 mg BID PRN Administration constipation Protocol Heparin Sodium (Porcine) 5,000 unit 08/15/24 21:00 08/16/24 09:24 Heparin Sod Inj 5000 Unit/Ml Vial SC 08/29/24 20:59 5,000 unit Q12HR JADE Administration Heparin Sodium (Porcine) 2,500 unit 08/16/24 19:24 08/17/24 11:12 Heparin Sod Inj 1000 Unit/Ml Vial 10 Ml INDWELLCAT 08/29/24 19:23 2,500 unit X1 PRN Administration DIALYSIS Hydromorphone HCl 0.5 mg 08/16/24 08:32 08/18/24 04:53 Hydromorphone Inj 2 Mg/Ml Vial IVP 08/20/24 15:14 0.5 mg Q4HR PRN Administration pain 4-6 Doxycycline Hyclate 100 mg/ 100 mls @ 100 mls/hr 08/15/24 21:00 08/18/24 09:07 Sodium Chloride IV 08/22/24 20:59 Not Given BID JADE Ceftriaxone Sodium/Dextrose 50 mls @ 100 mls/hr 08/16/24 09:00 08/18/24 09:07 Rocephin/D5w 1gm Iv Premix IV 08/23/24 08:59 Not Given QDAY JADE Albumin Human 25 gm in 100 mls @ 100 mls/hr 08/16/24 11:44 08/16/24 18:31 Albuminar-25 Ivpb IV 100 mls/hr PRN PRN Administration DIALYSIS Lidocaine 1 patch 08/17/24 11:30 08/18/24 09:07 Lidocaine 5% 1 Patch TOP 09/16/24 11:29 Not Given DAILY JADE Megestrol Acetate 400 mg 08/15/24 15:30 08/18/24 09:07 Megestrol Acet Susp 400 Mg/10 Ml Udc PO 09/14/24 15:29 Not Given DAILY JADE Midodrine 5 mg 08/15/24 21:00 08/18/24 09:07 Midodrine 5 Mg Tablet PO 09/14/24 20:59 Not Given BID JADE Ondansetron HCl 4 mg 08/15/24 14:57 Ondansetron Inj 2 Mg/Ml Inj 2 Ml IV 09/14/24 14:56 Q6HR PRN NAUSEA OR VOMITING Protocol Pantoprazole Sodium 40 mg 08/16/24 09:00 08/18/24 09:07 Pantoprazole Inj 40 Mg Vial IVP 09/15/24 08:59 Not Given QDAY JADE Plan Summary: Mr. Da Silva is a 74-year-old male PMH of A-fib rate controlled on amiodarone, BPH, hypertension, hyperlipidemia, insomnia, history of gastric carcinoma with esophageal obstruction, pericardial effusion status post pericardiocentesis who presented to ED today after experiencing urinary retention for more than 12 hours. Denies any abdominal pain, suprapubic pain, dysuria. Endorses decreased oral intake solids and liquids due to dysphagia of underlying gastric carcinoma and esophageal mass. Patient admitted for management of PILAR in setting of urinary retention/poor oral intake and hyperkalemia. Patient had continually decreased urine output, confusion and hyperkalemia, nephrology consulted, started patient on hemodialysis. #Acute renal failure #Hypocalcemia #Hypermagnesemia #Hyperkalemia #Acute metabolic encephalopathy #Anion gap metabolic acidosis Insetting of gastric carcinoma and esophageal tumor obstruction. Patient has had poor oral intake including liquids. Significant weight loss in past month. Endorses no urinary output in past 12 hours. Denies any abdominal pain, suprapubic pain, dysuria. At home patient normally eats softened foods in small pieces with Ensure supplement. CT abdomen pelvis showed no findings of urinary retention, bladder expansion, no significant prostatomegaly. Calcium 7.0, magnesium 3.5, potassium 6.7 on admission. Patient did not improve with IV fluids, nephrology was consulted, patient did receive IV insulin multiple times for hyperkalemia, continues to have hyperkalemia despite being on potassium binders. Patient started becoming confused, had signs of acute metabolic encephalopathy. Patient had temporary dialysis catheter placed on 08/16, received hemodialysis treatment for about 2 hours, no fluid was removed. Family agreed with dialysis Patient received hemodialysis yesterday (08/17) via temporary catheter, no fluid was removed Permanent dialysis catheter placed yesterday Plan -Receiving dialysis treatment currently, plan to remove about 1 L fluid. -Will continue to monitor renal function, will continue with dialysis inpatient -Monitor urine output closely -Dose medications renally -Avoid nephrotoxic medication #CAP #Hx gastric carcinoma with gastric outlet obstruction #Hx atrial fibrillation, rate controlled #Hx of possible hypotension #Hx BPH Management as per primary team Case discussed with Attending Dr. Parsons. Forrest Noland PGY1 Attending Provider Attestation/Addendum Patient seen and examined with resident physician Dr. Noland. Note reviewed, agree with findings and recommendations. Patient currently seen on third dialysis. Tolerating dialysis without any problems. Hemodialysis for 2.5 hours, 2K, ultrafiltration 1 L, Epogen 6000, no heparin ordered. Plan of care discussed with the dialysis nurse. Please see dialysis flowsheet for further details. s/p left IJ PermCath Outpatient dialysis arrangements to be done.
--- NOTE | 2024-08-18 09:31 | PC.NURSE ---
PT HR REMAINS ELEVATED PT CONT'S. TO DENY ALL COMPLAINTS, BFR LOWERED TO 250 WILL CONT. TO MONITOR
--- NOTE | 2024-08-18 09:42 | PC.NURSE ---
PT C/O OF FEELING NAUSOUS, UF GOAL LOWERED BACK TO JUST A CLEANING, WILL CONT. TO MONITOR
[2024-08-18] MEDS: ONDANSETRON INJ 2 MG/ML INJ 2 ML 4 MG IV (09:44)
[2024-08-18] MEDS: HEPARIN SOD INJ 1000 UNIT/ML VIAL 10 ML 3500 UNIT INDWELLCAT (11:07)
[2024-08-18] MEDS: AMIODARONE HCL 200 MG TABLET PO (11:56)
[2024-08-18] MEDS: LIDOCAINE 5% 1 PATCH TOP (11:57)
[2024-08-18] MEDS: cefTRIAXone/D5w 1gm IV premix 50 ML IV (11:57)
[2024-08-18] MEDS: MEGESTROL ACET SUSP 400 MG/10 ML UDC PO (11:57)
[2024-08-18] MEDS: PANTOPRAZOLE INJ 40 MG VIAL IVP (11:58)
[2024-08-18] MEDS: DOXYCYCLINE INJ 100 MG in SODIUM CHLORIDE 0.9% (P) 100 ML IV ×2 (11:59→20:36)
--- NOTE | 2024-08-18 12:32 | ESPR_ITS ---
Documentation for date of: 08/18/24 Subjective Subjective Interval history: Patient was seen and examined bedside. Alert, awake and oriented to time place and person. But noticed to have some hallucinations. Goals of care discussion were done with the family and wants to sign POLST form tomorrow after having discussion with the family. Patient received a session of dialysis today with removal of 1 L of fluid. Repeat labs done in the afternoon showed low potassium 3.2. As the patient is having occasional PVCs give 40 mill equivalents of oral potassium. Will follow-up with the nephrology and appreciate the recommendations. Exam Vital Signs Temp Pulse Resp BP Pulse Ox O2 Del Method O2 Flow Rate 98.6 F 133 H 19 139/65 H 91 L Oxy Mask 4 08/18/24 11:24 08/18/24 12:17 08/18/24 12:17 08/18/24 11:56 08/18/24 12:17 08/18/24 07:55 08/18/24 12:17 Narrative Exam General: Awake. HEENT: Normocephalic, atraumatic, mucous membranes moist. Heart: Regular rate and rhythm, no murmurs. Lungs: Clear to auscultation with no crackles. Occasionally wheeze noted. Abdomen: Soft, nondistended, nontender, positive bowel sounds. ?No guarding or rebound tenderness. Neurologic: Alert and oriented x3, no gross neurological deficit, and patient able to move all 4 extremities. Extremities: No edema. Skin: No rash or ecchymoses. Objective Labs 08/19/24 04:36 08/19/24 04:36 Labs: Laboratory Results - last 24 hr 08/18/24 05:16 WBC 10.0 D RBC 3.55 L Hgb 10.1 L Hct 31.7 L MCV 89 MCH 28.5 MCHC 31.9 RDW Std Deviation 54.8 H Plt Count 145 Neut % (Auto) 74 Lymph % (Auto) 6 L [place] % (Auto) 11 Eos % (Auto) 1 Baso % (Auto) 1 Neut # (Auto) 7.4 Lymph # (Auto) 0.6 L [place] # (Auto) 1.1 H Eos # (Auto) 0.1 Baso # (Auto) 0.1 Immature Gran # (Auto) 0.79 H Absolute Nucleated RBC 0.08 H Immature Gran % 8 H Nucleated RBC % 1 H Sodium 135 L Potassium 4.0 D Chloride 97 L Carbon Dioxide 20.5 Anion Gap 18 H BUN 64 H Creatinine 4.1 H* D Estim Creat Clear Calc 14.2 L eGFR 15 L BUN/Creatinine Ratio 16 Glucose 68 L Calculated Osmolality 286 Calcium 8.4 Corrected Calcium 8.6 Phosphorus 6.8 H Magnesium 2.4 Total Bilirubin 0.4 AST 65 H ALT 30 Alkaline Phosphatase 570 H Total Protein 6.2 Albumin 3.7 Globulin 2.5 Albumin/Globulin Ratio 1.5 Quality Measures Quality Measures none Advance care planning discussed with:: patient, spouse and child Assessment & Plan Assessment Current Active Medications: Generic Name Dose Route Start Last Admin Trade Name Freq PRN Reason Stop Dose Admin Acetaminophen 650 mg 08/16/24 08:35 Acetaminophen 325 Mg Tablet PO 09/14/24 13:53 Q6H PRN Fever >100.3 or pain (1-3) Albuterol/Ipratropium 3 ml 08/18/24 07:00 08/18/24 12:15 Albuterol/Ipratropium (Duoneb) Rt Zamzam 3 Ml Nebu INH 09/17/24 06:59 3 ml Q6HRRT JADE Administration Albuterol/Ipratropium 3 ml 08/18/24 01:57 08/18/24 02:36 Albuterol/Ipratropium (Duoneb) Rt Zamzam 3 Ml Nebu INH 09/17/24 02:59 3 ml Q4HRRT PRN Administration Wheezing Amiodarone HCl 200 mg 08/15/24 15:30 08/18/24 11:56 Amiodarone Hcl 200 Mg Tablet PO 09/14/24 15:29 200 mg DAILY JADE Administration Calcium Carbonate 600 mg 08/16/24 09:00 08/18/24 09:06 Calcium Carbonate 600 Mg Tablet PO 09/15/24 08:59 Not Given QDAY JADE Docusate Sodium 100 mg 08/15/24 15:13 08/18/24 03:20 Docusate Sod Liqd 100 Mg/10 Ml Udc PO 09/14/24 20:59 100 mg BID PRN Administration constipation Protocol Heparin Sodium (Porcine) 5,000 unit 08/15/24 21:00 08/16/24 09:24 Heparin Sod Inj 5000 Unit/Ml Vial SC 08/29/24 20:59 5,000 unit Q12HR JADE Administration Heparin Sodium (Porcine) 3,500 unit 08/18/24 10:55 08/18/24 11:07 Heparin Sod Inj 1000 Unit/Ml Vial 10 Ml INDWELLCAT 3,500 unit PRN PRN Administration DIALYSIS Hydromorphone HCl 0.5 mg 08/16/24 08:32 08/18/24 04:53 Hydromorphone Inj 2 Mg/Ml Vial IVP 08/20/24 15:14 0.5 mg Q4HR PRN Administration pain 4-6 Doxycycline Hyclate 100 mg/ 100 mls @ 100 mls/hr 08/15/24 21:00 08/18/24 11:59 Sodium Chloride IV 08/22/24 20:59 100 mls/hr BID JADE Administration Ceftriaxone Sodium/Dextrose 50 mls @ 100 mls/hr 08/16/24 09:00 08/18/24 11:57 Rocephin/D5w 1gm Iv Premix IV 08/23/24 08:59 100 mls/hr QDAY JADE Administration Albumin Human 25 gm in 100 mls @ 100 mls/hr 08/16/24 11:44 08/16/24 18:31 Albuminar-25 Ivpb IV 100 mls/hr PRN PRN Administration DIALYSIS Lidocaine 1 patch 08/17/24 11:30 08/18/24 11:57 Lidocaine 5% 1 Patch TOP 09/16/24 11:29 1 patch DAILY JADE Administration Megestrol Acetate 400 mg 08/15/24 15:30 08/18/24 11:57 Megestrol Acet Susp 400 Mg/10 Ml Udc PO 09/14/24 15:29 400 mg DAILY JADE Administration Midodrine 5 mg 08/15/24 21:00 08/18/24 09:07 Midodrine 5 Mg Tablet PO 09/14/24 20:59 Not Given BID JADE Ondansetron HCl 4 mg 08/15/24 14:57 08/18/24 09:44 Ondansetron Inj 2 Mg/Ml Inj 2 Ml IV 09/14/24 14:56 4 mg Q6HR PRN Administration NAUSEA OR VOMITING Protocol Pantoprazole Sodium 40 mg 08/16/24 09:00 08/18/24 11:58 Pantoprazole Inj 40 Mg Vial IVP 09/15/24 08:59 40 mg QDAY JADE Administration Plan Patient is a 74-year-old male PMH of A-fib rate controlled on amiodarone, BPH, hypertension, hyperlipidemia, insomnia, history of gastric carcinoma with esophageal obstruction, pericardial effusion status post pericardiocentesis who presented to ED today after experiencing urinary retention for more than 12 hours. Denies any abdominal pain, suprapubic pain, dysuria. Endorses decreased oral intake solids and liquids due to dysphagia of underlying gastric carcinoma and esophageal mass. Patient admitted for management of PILAR in setting of urinary retention/poor oral intake and hyperkalemia. # Acute metabolic encephalopathy, resolved #Acute renal failure, likely prerenal in the setting of poor oral intake due to gastric carcinoma, resolving -Patient is having poor oral intake secondary to gastric carcinoma and tumor obstructing the esophagus. -Came with decreased urine output -Denies fever, burning micturition, abdominal pain. -Came with altered sensorium. -Labs at the time of admission showed sodium 127, potassium 6.7, chloride 90, bicarb 17.2, anion gap 20, BUN 141, creatinine 6.7, lactate 5.9, calcium 7.1, magnesium 3.5. -Baseline creatinine is 0.9 on 07/31/2024 -CT abdomen pelvis showed no findings of urinary retention, bladder expansion, no significant prostatomegaly. -EKG showed normal sinus rhythm with first-degree AV block, peaking of Twaves, negative troponins. Plan -Nephrology Dr. Parsons was consulted -Patient got hemodialysis on 08/16, 08/17, 08/18 -Renal dialysis catheter was placed -Will continue to monitor renal functions -Renally dose medication and avoid nephrotoxic drugs. #Hypocalcemia, resolved #Hypermagnesemia, resolved #Hyperkalemia, resolved -At the time of admission, calcium 7.1, magnesium 3.5, potassium is 6.7 -Likely due to combined poor oral intake and PILAR -On 08/17, potassium is 5.2, calcium is 7.4, magnesium is 2.8 -As of 08/18, all 3 electrolytes are within normal limits. Plan -Patient received 2 hemodialysis sessions on 08/16, 08/17, 08/18 -Will continue to monitor electrolytes and manage accordingly. #Anion gap metabolic acidosis, resolving #Elevated lactic acidosis Most likely in the setting of underlying kidney failure. Admission lactic acidosis 5.9. Status post 2 L bolus fluids, lactic acid increased to 7.9 Plan -Patient was started on hemodialysis -Will continue to monitor labs #CAP CT abdomen pelvis showed significant bilateral pneumonia with chest x-ray showing more prominence in right lung. Patient is denying any coughing or shortness of breath, fever or chills. Denies any close sick contacts. Currently saturating at 98% via 2 L nasal cannula. -IV doxycycline 100 BID -IV Rocefin 1 gm daily #Hx gastric carcinoma with gastric outlet obstruction Diagnosis made 06/2024. 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 Patient has been following with Dr. Guevara on oncology. Currently has port cath placed for chemotherapy. Experiencing decreased appetite, fatigue, dysphagia. Poor oral intake with significant weight loss. -Dr. Guevara consulted -0.5 mg IV Dilaudid every 4 hours as needed for pain ? Megestrol for appetite stimulant ? Zofran 4 mg every 6 hours as needed for nausea ? Pantoprazole 40 mg IV daily ? Refer to speech pathology--started patient on blenderized diet and boost ? Referral to dietitian ? Aspiration precautions #Hx atrial fibrillation, rate controlled EKG showed mild normal sinus rhythm. -Jack vasc score 2 -continue amiodarone 200 mg daily -hold metoprolol succinate 100 mg daily due to soft blood pressure #Hx of possible hypotension Patient was recently started on midodrine [address] Spencer outpatient. -Continue midodrine 5 mg twice daily -Hold all antihypertensives #Hx BPH -Continue tamsulosin 0.4 mg PO daily ? Finasteride 5 mg p.o. daily Health maintenance: Dispo: Tunnel dialysis catheter is placed DVT prophylaxis: Subcu heparin CODE STATUS: Full code Diet: Blenderized Patient plan of care was discussed with the attending physician, Dr. Shoshana Oates, PGY1 Attending Provider Attestation/Addendum I have discussed and was present for the essential components of the history, physical examination, diagnosis, and treatment plan with the resident. I agree with the patient's care as documented by the resident and amended herein by me. Jaswinder Anna DO. Although this document has been carefully reviewed, there may still be some phonetic and other typographical errors. These errors are purely grammatical due to imperfections in the software program and should not be construed in any way to compromise the substance of the patient's medical care during this visit.
--- NOTE | 2024-08-18 13:43 | EKG_ITS ---
[facility] Test Date: 2024-08-18 Pat Name: JUAN ANTONIO COELLO [facility] [employer]ist[employer] Dec[employer]ator: YAEL : 1950 Requested By: Craig Tirado Order Number: [id number] Reading MD: Craig Tirado Measurements Intervals [place] Rate: 110 P: 74 CT: 132 QRS: -89 QRSD: 158 T: 56 QT: 370 QTc: 502 Interpretive Statements SINUS TACHYCARDIA WITH OCCASIONAL VENTRICULAR PREMATURE COMPLEXES RIGHT BUNDLE BRANCH BLOCK LEFT ANTERIOR FASCICULAR BLOCK Compared to ECG 08/15/2024 10:30:17 Ventricular premature complex(es) now present Left anterior fascicular block now present Sinus rhythm no longer present First degree AV block no longer present Right-axis deviation no longer present /store/[id number]
[2024-08-18 16:46] LABS: Albumin, Serum 3.6 gm/dL (3.4-4.8); Anion Gap 18 (7-16); BUN/Creatinine Ratio 14 Ratio (12-20); Blood Urea Nitrogen 36 mg/dL (9-23); Calcium 8.4 mg/dL (8.3-10.6); Calcium (Corrected) 8.7 mg/dL (8.5-10.1); Carbon Dioxide 19.9 mMol/L (20.0-31.0); Chloride 99 mMol/L (98-107); Creatinine (Component) 2.5 mg/dL (0.6-1.3); Estimated Creatinine Clearance 23.3 mL/min (>60); Glucose 129 mg/dL (74-106); Osmolality,Calculated 284 (275-295); Phosphorous 3.5 mg/dL (2.4-5.1); Potassium 3.2 mMol/L (3.4-5.1); Sodium 137 mMol/L (136-145); eGFR 26 See Note
[2024-08-18] MEDS: POTASSIUM CHLORIDE 20 mEq TABCR 40 MEQ PO (17:17)
[2024-08-18] MEDS: ZOLPIDEM 5 MG TABLET 10 MG PO (20:41)
[2024-08-19] VITALS (16 sets, daily range): BP systolic 108–148; BP diastolic 60–85; PULSE 91–126; RESP 12–27; TEMP 36.3–37.1; O2SAT 91–98; BMI 21.3
[2024-08-19] MEDS: ALBUTEROL/IPRATROPIUM (Duoneb) RT SOL 3 ML NEBU INH ×4 (01:19→18:44)
[2024-08-19 05:29] LABS: Basophils # (Auto) 0.1 Thou/mm3 (0.0-0.2); Basophils % (Auto) 1 % (0-2.5); Eosinophils # (Auto) 0.1 Thou/mm3 (0.0-0.5); Eosinophils % (Auto) 1 % (0-10); Hematocrit 31.1 % (41.0-53.0); Hemoglobin 10.1 g/dL (13.5-16.0); Immature Granulocytes % (Auto) 10 % (0-0); Lymphocytes # (Auto) 0.7 Thou/mm3 (1.0-4.8); Lymphocytes % (Auto) 5 % (10-50); Mean Corpuscular HGB Conc 32.5 g/dl (31.0-37.0); Mean Corpuscular Hemoglobin 28.5 pg (25.0-35.0); Mean Corpuscular Volume 88 fL (80-100); Monocytes # (Auto) 1.3 Thou/mm3 (0.0-0.8); Monocytes % (Auto) 10 % (0-12); Neutrophils # (Auto) 9.6 Thou/mm3 (1.8-7.7); Neutrophils % (Auto) 74 % (37-80); Nucleated Red Blood Cell # 0.09 Thou/mm3 (0.00-0.00); Nucleated Red Blood Cell % 1 /100 WBC (0); Platelet Count 126 Thou/mm3 (140-440); RDW Standard Deviation 53.5 fL (35.1-43.9); Red Blood Count 3.54 Miln/mm3 (4.50-5.90)
[2024-08-19 05:52] LABS: Alanine Aminotransferase 28 U/L (10-49); Albumin, Serum 3.4 gm/dL (3.4-4.8); Albumin/Globulin Ratio 1.4 (1.2-2.2); Alkaline Phosphatase 529 U/L (46-116); Anion Gap 14 (7-16); Aspartate Amino Transferase 65 U/L (0-34); BUN/Creatinine Ratio 14 Ratio (12-20); Bilirubin,Total 0.3 mg/dL (0.3-1.2); Blood Urea Nitrogen 41 mg/dL (9-23); Calcium 8.7 mg/dL (8.3-10.6); Calcium (Corrected) 9.2 mg/dL (8.5-10.1); Carbon Dioxide 21.9 mMol/L (20.0-31.0); Chloride 100 mMol/L (98-107); Estimated Creatinine Clearance 19.4 mL/min (>60); Globulin 2.4 gm/dL (2.3-3.5); Glucose 86 mg/dL (74-106); Osmolality,Calculated 281 (275-295); Potassium 3.3 mMol/L (3.4-5.1); Sodium 136 mMol/L (136-145); Total Protein 5.8 gm/dL (5.7-8.2); eGFR 21 See Note
[2024-08-19] MEDS: CALCIUM CARBONATE 600 MG TABLET PO (08:07)
[2024-08-19] MEDS: AMIODARONE HCL 200 MG TABLET PO (08:07)
[2024-08-19] MEDS: ACETAMINOPHEN 325 MG TABLET 650 MG PO ×2 (08:07→22:19)
[2024-08-19] MEDS: PANTOPRAZOLE INJ 40 MG VIAL IVP (08:08)
[2024-08-19] MEDS: DOXYCYCLINE INJ 100 MG in SODIUM CHLORIDE 0.9% (P) 100 ML IV (08:09)
[2024-08-19] MEDS: cefTRIAXone/D5w 1gm IV premix 50 ML IV (08:10)
[2024-08-19] MEDS: MEGESTROL ACET SUSP 400 MG/10 ML UDC PO (08:11)
[2024-08-19] MEDS: METOPROLOL SUCCINATE XL 25 MG TABCR 50 MG PO (08:34)
[2024-08-19] MEDS: POTASSIUM CHLORIDE 20 mEq TABCR 40 MEQ PO (08:35)
[2024-08-19] MEDS: LIDOCAINE 5% 1 PATCH TOP (08:37)
[2024-08-19] MEDS: HYDROmorphone INJ 2 MG/ML VIAL 0.5 MG IVP ×3 (08:49→16:34)
[2024-08-19] MEDS: TUBERCULIN PPD INJ 5 UNIT/0.1 ML DOSE ID (09:07)
[2024-08-19 10:13] LABS: Magnesium 2.1 mg/dL (1.6-2.6)
--- NOTE | 2024-08-19 10:35 | ESPR_ITS ---
Documentation for date of: 08/19/24 Subjective Subjective Interval history: Mr. Da Silva is a 74-year-old male with past medical history of A-fib (rate controlled on amiodarone), BPH, hypertension, hyperlipidemia, insomnia, history of gastric carcinoma with esophageal obstruction, pericardial effusion status post pericardiocentesis who presented to ED on 08/15 after experiencing urinary retention. 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 Underwent pericardiocentesis. During this admission he presented with symptoms of urinary retention have been ongoing since past 12 hours. Patient was confused, history obtained from family at bedside who stated that patient has had poor oral intake with difficulty swallowing due to obstruction. Has had significant weight loss and dysphagia. Patient denies any dysuria but endorses difficulty in maintaining stream. He is compliant with BPH medications. Oncologist Dr. Guevara has been following patient since previous discharge. Patient has Port-A-cath placed in preparation for chemotherapy. He denies any constipation, diarrhea, blood in the stool, abdominal pain, fever, or chills. Endorses weakness. At home, diet consists of soft foods and little pieces. No issues of aspiration. ED course significant for, vitals of blood pressure 108/59, pulse 75, 92% O2 on room air. ED labs revealed WBC 8.1, hemoglobin 11.4, platelets 228, hyponatremic 128, hyperkalemic 6.7, bicarb 17.2, AG 20, Cr 6.7, lactic acid 5.9, corrected calcium 7.0, magnesium 3.5, ALP 710, BNP 512, procalcitonin 0.99. UA negative. EKG showed normal sinus rhythm with first-degree AV block, peaking of Twaves, negative troponins. Chest x-ray bilateral pneumonia more severe in right lung. CT abdomen pelvis showing bibasilar pneumonia, cirrhosis, no significant prostatomegaly. In ED patient was given calcium carbonate x 1, 2 L bolus normal saline, 5 units regular insulinAmp D5W, Rocephin times 1 g x 1, azithromycin 500 mg x 1. Stat repeat CMP no significant improvement of potassium at 6.4, worsening acidosis bicarb 14.8, creatinine 6.5 calcium 7.1, 3 mag 3.5. Repeat lactic acid elevated to 7.9. Patient admitted for managemenet of PILAR in setting of urinary retention/poor oral intake and hyperkalemia. Nephrology consulted for same. Home medications amiodarone 200 mg p.o. daily metoprolol succinate 50 twice daily, Lasix 40 daily, lidocaine patch, citalopram 40 mg p.o. daily, famotidine 20 mg, trazodone 100 mg, mirtazapine 15 mg, finasteride 5 mg, rosuvastatin 40 mg, tamsulosin 0.4 mg Nephrology was consulted, patient had minimal urine output in setting of acute renal failure and poor oral intake, patient was also confused, family agreed to dialysis, patient will receive dialysis today after temporary dialysis catheter placement. Patient's potassium was 5.9 before dialysis yesterday. 08/17/2024: Patient seen at bedside, receiving dialysis treatment. Patient had 2 hours of dialysis treatment yesterday via temporary dialysis catheter, had no fluid removed. Patient continues to have minimal urine output, potassium 5.2 today, patient will receive another dialysis treatment today, plan to remove no fluid. Patient is scheduled for permanent dialysis catheter placement today. Will continue to monitor urine output and labs closely. 08/18/24: Patient seen at bedside, receiving dialysis treatment. Goal is to remove about 1 L fluid today, patient has 1+ bilateral lower extremity edema, has increased oxygen requirement currently on 6 L oxygen via nasal cannula, patient did have permanent dialysis catheter placement yesterday, today patient complains of back pain, reports that he is tired of being in bed all the day, recommend physical therapy to work with patient, improve bed to chair time. Patient had good p.o. intake this morning, reports eating breakfast. Patient's BUN 64, creatinine 4.1 today, GFR 15. Will continue to monitor renal panel and urine output closely. 08/19/24: Patient was seen and examined by the bedside. No acute overnight events. Patient is sitting in bed comfortably. Saturates well on 4 L NC. Patient has received dialysis yesterday, next scheduled session is on Tuesday. Labs showed sodium 136, potassium 3.3, BUN 41, calcium 8.7, phosphorus 3.5, magnesium 2.1, Creatinine 3.0. Exam Vital Signs Temp Pulse Resp BP Pulse Ox O2 Del Method O2 Flow Rate 97.3 F 111 H 25 H 142/79 H 92 L Humidified Nasal Cannula 4 08/19/24 07:45 08/19/24 08:34 08/19/24 07:45 08/19/24 08:34 08/19/24 07:45 08/19/24 07:45 08/19/24 07:45 Narrative Exam General: Alert and oriented x3, cachectic, cooperative Eyes: Pupils are equal and reactive to light bilaterally HEENT: Atraumatic, normocephalic. No JVD noted. Mucosa dry. Left IJ tunnelled catheter. Cardiovascular: Normal S1 and S2. Regular rate and rhythm. 1+ pitting edema Respiratory: Mild expiratory wheezing Abdomen: Soft, nontender, not distended, normal bowel sounds. Skin: Warm to touch, no rashes noted, senile purpura Musculoskeletal: No gross injuries. Able to move all 4 extremities. Neuro: Alert and oriented x3. No gross neurological deficit, and patient able to move all 4 extremities. Objective Labs 08/19/24 04:36 08/19/24 04:36 Labs: Laboratory Results - last 24 hr 08/18/24 08/19/24 08/19/24 15:44 04:36 09:34 WBC 13.0 H RBC 3.54 L Hgb 10.1 L Hct 31.1 L MCV 88 MCH 28.5 MCHC 32.5 RDW Std Deviation 53.5 H Plt Count 126 L Neut % (Auto) 74 Lymph % (Auto) 5 L Crenshaw % (Auto) 10 Eos % (Auto) 1 Baso % (Auto) 1 Neut # (Auto) 9.6 H Lymph # (Auto) 0.7 L Crenshaw # (Auto) 1.3 H Eos # (Auto) 0.1 Baso # (Auto) 0.1 Immature Gran # (Auto) 1.30 H Absolute Nucleated RBC 0.09 H Immature Gran % 10 H Nucleated RBC % 1 H Sodium 137 136 Potassium 3.2 L D 3.3 L Chloride 99 100 Carbon Dioxide 19.9 L 21.9 Anion Gap 18 H 14 BUN 36 H 41 H Creatinine 2.5 H D 3.0 H D Estim Creat Clear Calc 23.3 L 19.4 L eGFR 26 L 21 L BUN/Creatinine Ratio 14 14 Glucose 129 H D 86 Calculated Osmolality 284 281 Calcium 8.4 8.7 Corrected Calcium 8.7 9.2 Phosphorus 3.5 Magnesium 2.1 Total Bilirubin 0.3 AST 65 H ALT 28 Alkaline Phosphatase 529 H D Total Protein 5.8 Albumin 3.6 3.4 Globulin 2.4 Albumin/Globulin Ratio 1.4 Quality Measures Quality Measures none Advance care planning discussed with:: patient Assessment & Plan Assessment Current Active Medications: Generic Name Dose Route Start Last Admin Trade Name Freq PRN Reason Stop Dose Admin Acetaminophen 650 mg 08/16/24 08:35 08/19/24 08:07 Acetaminophen 325 Mg Tablet PO 09/14/24 13:53 650 mg Q6H PRN Administration Fever >100.3 or pain (1-3) Albuterol/Ipratropium 3 ml 08/18/24 07:00 08/19/24 06:44 Albuterol/Ipratropium (Duoneb) Rt Zamzam 3 Ml Nebu INH 09/17/24 06:59 3 ml Q6HRRT JADE Administration Albuterol/Ipratropium 3 ml 08/18/24 01:57 08/18/24 02:36 Albuterol/Ipratropium (Duoneb) Rt Zamzam 3 Ml Nebu INH 09/17/24 02:59 3 ml Q4HRRT PRN Administration Wheezing Amiodarone HCl 200 mg 08/15/24 15:30 08/19/24 08:07 Amiodarone Hcl 200 Mg Tablet PO 09/14/24 15:29 200 mg DAILY JADE Administration Calcium Carbonate 600 mg 08/16/24 09:00 08/19/24 08:07 Calcium Carbonate 600 Mg Tablet PO 09/15/24 08:59 600 mg QDAY JADE Administration Docusate Sodium 100 mg 08/15/24 15:13 08/18/24 03:20 Docusate Sod Liqd 100 Mg/10 Ml Udc PO 09/14/24 20:59 100 mg BID PRN Administration constipation Protocol Heparin Sodium (Porcine) 5,000 unit 08/15/24 21:00 08/16/24 09:24 Heparin Sod Inj 5000 Unit/Ml Vial SC 08/29/24 20:59 5,000 unit Q12HR JADE Administration Heparin Sodium (Porcine) 3,500 unit 08/18/24 10:55 08/18/24 11:07 Heparin Sod Inj 1000 Unit/Ml Vial 10 Ml INDWELLCAT 3,500 unit PRN PRN Administration DIALYSIS Hydromorphone HCl 0.5 mg 08/16/24 08:32 08/19/24 08:49 Hydromorphone Inj 2 Mg/Ml Vial IVP 08/20/24 15:14 0.5 mg Q4HR PRN Administration pain 4-6 Doxycycline Hyclate 100 mg/ 100 mls @ 100 mls/hr 08/15/24 21:00 08/19/24 08:09 Sodium Chloride IV 08/19/24 20:59 100 mls/hr BID JADE Administration Ceftriaxone Sodium/Dextrose 50 mls @ 100 mls/hr 08/16/24 09:00 08/19/24 08:10 Rocephin/D5w 1gm Iv Premix IV 08/19/24 21:00 100 mls/hr QDAY JADE Administration Albumin Human 25 gm in 100 mls @ 100 mls/hr 08/16/24 11:44 08/18/24 19:48 Albuminar-25 Ivpb IV Infused PRN PRN Infusion DIALYSIS Lidocaine 1 patch 08/17/24 11:30 08/19/24 08:37 Lidocaine 5% 1 Patch TOP 09/16/24 11:29 1 patch DAILY JADE Administration Megestrol Acetate 400 mg 08/15/24 15:30 08/19/24 08:11 Megestrol Acet Susp 400 Mg/10 Ml Udc PO 09/14/24 15:29 400 mg DAILY JADE Administration Metoprolol Succinate 50 mg 08/19/24 09:00 08/19/24 08:34 Metoprolol Succinate Xl 25 Mg Tabcr PO 09/18/24 08:59 50 mg QDAY JADE Administration Midodrine 5 mg 08/15/24 21:00 08/19/24 08:04 Midodrine 5 Mg Tablet PO 09/14/24 20:59 Not Given BID JADE Mirtazapine 15 mg 08/19/24 21:00 Mirtazapine 15 Mg Tablet PO 09/18/24 20:59 HS JADE Ondansetron HCl 4 mg 08/15/24 14:57 08/18/24 09:44 Ondansetron Inj 2 Mg/Ml Inj 2 Ml IV 09/14/24 14:56 4 mg Q6HR PRN Administration NAUSEA OR VOMITING Protocol Pantoprazole Sodium 40 mg 08/16/24 09:00 08/19/24 08:08 Pantoprazole Inj 40 Mg Vial IVP 09/15/24 08:59 40 mg QDAY JADE Administration Plan Summary: Mr. Da Silva is a 74-year-old male PMH of A-fib rate controlled on amiodarone, BPH, hypertension, hyperlipidemia, insomnia, history of gastric carcinoma with esophageal obstruction, pericardial effusion status post pericardiocentesis who presented to ED today after experiencing urinary retention for more than 12 hours. Denies any abdominal pain, suprapubic pain, dysuria. Endorses decreased oral intake solids and liquids due to dysphagia of underlying gastric carcinoma and esophageal mass. Patient admitted for management of PILAR in setting of urinary retention/poor oral intake and hyperkalemia. Patient had continually decreased urine output, confusion and hyperkalemia, nephrology consulted, started patient on hemodialysis. #Acute renal failure #Hypocalcemia, resolved #Hypermagnesemia, resolved #Hyperkalemia, resolved #Acute metabolic encephalopathy #Anion gap metabolic acidosis, resolved Insetting of gastric carcinoma and esophageal tumor obstruction. Patient has had poor oral intake including liquids. Significant weight loss in past month. Endorses no urinary output in past 12 hours. Denies any abdominal pain, suprapubic pain, dysuria. At home patient normally eats softened foods in small pieces with Ensure supplement. CT abdomen pelvis showed no findings of urinary retention, bladder expansion, no significant prostatomegaly. Calcium 7.0, magnesium 3.5, potassium 6.7 on admission. Patient did not improve with IV fluids, nephrology was consulted, patient did receive IV insulin multiple times for hyperkalemia, continues to have hyperkalemia despite being on potassium binders. Patient started becoming confused, had signs of acute metabolic encephalopathy. Patient had temporary dialysis catheter placed on 08/16, received hemodialysis treatment for about 2 hours, no fluid was removed. Family agreed with dialysis Patient received hemodialysis yesterday (08/17) via temporary catheter, no fluid was removed Permanent dialysis catheter placed 08/17/24 Plan -Dialysis treatment scheduled on Tuesday. -Will continue to monitor renal function, will continue with dialysis inpatient -Monitor urine output closely -Dose medications renally -Avoid nephrotoxic medication - Hepatitis panel and PPD pending for assessment of patient starting dialysis #CAP #Hx gastric carcinoma with gastric outlet obstruction #Hx atrial fibrillation, rate controlled #Hx of possible hypotension #Hx BPH Management as per primary team Plan of care discussed with attending Dr. Parsons. Ela Lopez MD, PGY 1. Attending Provider Attestation/Addendum Patient seen and examined with resident physician Dr. Mahmood. Note reviewed, agree with findings and recommendations. Patient so far received 3 dialysis treatments. s/p left IJ PermCath Outpatient dialysis arrangements to be done. PPD, hep panel ordered.
--- NOTE | 2024-08-19 12:23 | PD.RESPRO ---
Documentation for date of: 08/19/24 Subjective Subjective Interval history: Patient seen and examined at bedside this morning. No acute overnight events. Vitals, labs reviewed. Mildly hypertensive therefore added metoprolol 50 mg daily. Mild increase in leukocytosis. Renal function consistent with ESRD picture. Patient is making minimal urine, approximately 75 cc in past 24 hours. Hepatitis panel negative, will obtain PPD in regards for outpatient hemodialysis. Reviewed oncology note and need for further tissue sampling for NGS, with oncology recommending liver biopsy. Discussed with patient and his . Patient is thinking of discharging on hospice, but will discuss further with /family. 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 Additionally, patient would like to change CODE STATUS to DNR/DNI. Will have patient signed POLST form and placed in chart. Exam Vital Signs Temp Pulse Resp BP Pulse Ox O2 Del Method O2 Flow Rate 98.2 F 97 26 H 137/60 H 91 L Humidified Nasal Cannula 3 08/19/24 11:53 08/19/24 11:53 08/19/24 11:53 08/19/24 11:53 08/19/24 11:53 08/19/24 11:53 08/19/24 11:53 Narrative Exam Gen: AAOx3, elderly male, appears chronically ill, cachectic, pleasant to speak with HEENT: PERRLA, EOMI, MM dry, left TDC noted without erythema, bleeding or discharge CVS: normal S1, S2. RRR. No MRG Resp: CTA B/L. No adventitious breath sounds. Mildly decreased in right lower base Abd: soft, non-tender, non-distended. BS+ in all 4 quadrants : [place] catheter noted, minimal urine output MSK: Good ROM in BUE & BLE. Trace edema in BLE. Senile purpura Neuro: CN II-XII grossly intact. No focal deficits appreciated Objective Labs 08/20/24 05:09 08/20/24 05:09 Labs: Laboratory Results - last 24 hr 08/18/24 08/19/24 08/19/24 15:44 04:36 09:34 WBC 13.0 H RBC 3.54 L Hgb 10.1 L Hct 31.1 L MCV 88 MCH 28.5 MCHC 32.5 RDW Std Deviation 53.5 H Plt Count 126 L Neut % (Auto) 74 Lymph % (Auto) 5 L [place] % (Auto) 10 Eos % (Auto) 1 Baso % (Auto) 1 Neut # (Auto) 9.6 H Lymph # (Auto) 0.7 L [place] # (Auto) 1.3 H Eos # (Auto) 0.1 Baso # (Auto) 0.1 Immature Gran # (Auto) 1.30 H Absolute Nucleated RBC 0.09 H Immature Gran % 10 H Nucleated RBC % 1 H Sodium 137 136 Potassium 3.2 L D 3.3 L Chloride 99 100 Carbon Dioxide 19.9 L 21.9 Anion Gap 18 H 14 BUN 36 H 41 H Creatinine 2.5 H D 3.0 H D Estim Creat Clear Calc 23.3 L 19.4 L eGFR 26 L 21 L BUN/Creatinine Ratio 14 14 Glucose 129 H D 86 Calculated Osmolality 284 281 Calcium 8.4 8.7 Corrected Calcium 8.7 9.2 Phosphorus 3.5 Magnesium 2.1 Total Bilirubin 0.3 AST 65 H ALT 28 Alkaline Phosphatase 529 H D Total Protein 5.8 Albumin 3.6 3.4 Globulin 2.4 Albumin/Globulin Ratio 1.4 Quality Measures Quality Measures VTE prophylaxis Advance care planning discussed with:: patient and spouse Assessment & Plan Assessment Current Active Medications: Generic Name Dose Route Start Last Admin Trade Name Freq PRN Reason Stop Dose Admin Acetaminophen 650 mg 08/16/24 08:35 08/19/24 08:07 Acetaminophen 325 Mg Tablet PO 09/14/24 13:53 650 mg Q6H PRN Administration Fever >100.3 or pain (1-3) Albuterol/Ipratropium 3 ml 08/18/24 07:00 08/19/24 06:44 Albuterol/Ipratropium (Duoneb) Rt Zamzam 3 Ml Nebu INH 09/17/24 06:59 3 ml Q6HRRT JADE Administration Albuterol/Ipratropium 3 ml 08/18/24 01:57 08/18/24 02:36 Albuterol/Ipratropium (Duoneb) Rt Zamzam 3 Ml Nebu INH 09/17/24 02:59 3 ml Q4HRRT PRN Administration Wheezing Amiodarone HCl 200 mg 08/15/24 15:30 08/19/24 08:07 Amiodarone Hcl 200 Mg Tablet PO 09/14/24 15:29 200 mg DAILY JADE Administration Calcium Carbonate 600 mg 08/16/24 09:00 08/19/24 08:07 Calcium Carbonate 600 Mg Tablet PO 09/15/24 08:59 600 mg QDAY JADE Administration Docusate Sodium 100 mg 08/15/24 15:13 08/18/24 03:20 Docusate Sod Liqd 100 Mg/10 Ml Udc PO 09/14/24 20:59 100 mg BID PRN Administration constipation Protocol Heparin Sodium (Porcine) 5,000 unit 08/15/24 21:00 08/16/24 09:24 Heparin Sod Inj 5000 Unit/Ml Vial SC 08/29/24 20:59 5,000 unit Q12HR JADE Administration Heparin Sodium (Porcine) 3,500 unit 08/18/24 10:55 08/18/24 11:07 Heparin Sod Inj 1000 Unit/Ml Vial 10 Ml INDWELLCAT 3,500 unit PRN PRN Administration DIALYSIS Hydromorphone HCl 0.5 mg 08/16/24 08:32 08/19/24 08:49 Hydromorphone Inj 2 Mg/Ml Vial IVP 08/20/24 15:14 0.5 mg Q4HR PRN Administration pain 4-6 Doxycycline Hyclate 100 mg/ 100 mls @ 100 mls/hr 08/15/24 21:00 08/19/24 08:09 Sodium Chloride IV 08/19/24 20:59 100 mls/hr BID JADE Administration Ceftriaxone Sodium/Dextrose 50 mls @ 100 mls/hr 08/16/24 09:00 08/19/24 08:10 Rocephin/D5w 1gm Iv Premix IV 08/19/24 21:00 100 mls/hr QDAY JADE Administration Albumin Human 25 gm in 100 mls @ 100 mls/hr 08/16/24 11:44 08/18/24 19:48 Albuminar-25 Ivpb IV Infused PRN PRN Infusion DIALYSIS Lidocaine 1 patch 08/17/24 11:30 08/19/24 08:37 Lidocaine 5% 1 Patch TOP 09/16/24 11:29 1 patch DAILY JADE Administration Megestrol Acetate 400 mg 08/15/24 15:30 08/19/24 08:11 Megestrol Acet Susp 400 Mg/10 Ml Udc PO 09/14/24 15:29 400 mg DAILY JADE Administration Metoprolol Succinate 50 mg 08/19/24 09:00 08/19/24 08:34 Metoprolol Succinate Xl 25 Mg Tabcr PO 09/18/24 08:59 50 mg QDAY JADE Administration Midodrine 5 mg 08/15/24 21:00 08/19/24 08:04 Midodrine 5 Mg Tablet PO 09/14/24 20:59 Not Given BID JADE Mirtazapine 15 mg 08/19/24 21:00 Mirtazapine 15 Mg Tablet PO 09/18/24 20:59 HS JADE Ondansetron HCl 4 mg 08/15/24 14:57 08/18/24 09:44 Ondansetron Inj 2 Mg/Ml Inj 2 Ml IV 09/14/24 14:56 4 mg Q6HR PRN Administration NAUSEA OR VOMITING Protocol Pantoprazole Sodium 40 mg 08/16/24 09:00 08/19/24 08:08 Pantoprazole Inj 40 Mg Vial IVP 09/15/24 08:59 40 mg QDAY JADE Administration Plan Patient is a 74-year-old male PMH of A-fib rate controlled on amiodarone, BPH, hypertension, hyperlipidemia, insomnia, history of gastric carcinoma with esophageal obstruction, pericardial effusion status post pericardiocentesis who presented to ED today after experiencing urinary retention for more than 12 hours. Denies any abdominal pain, suprapubic pain, dysuria. Endorses decreased oral intake solids and liquids due to dysphagia of underlying gastric carcinoma and esophageal mass. Patient admitted for management of IPLAR in setting of urinary retention/poor oral intake and hyperkalemia. #Goals of care Had a short goals of care conversation with patient and his , with hospitalist team and RN present. Discussed the need for liver biopsy for further tissue sampling to send for next generation sequencing, as recommended by oncologist. At this time patient is considering home hospice for discharge and to forego further treatment. He plans to discuss this further with his and family. Patient stated at this time he would like to be made DNR/DNI. POLST form will be signed, with copy placed in patient's chart, and original given to patient's . # Acute metabolic encephalopathy, resolved #Acute renal failure, likely prerenal in the setting of poor oral intake due to gastric carcinoma, resolving -Patient is having poor oral intake secondary to gastric carcinoma and tumor obstructing the esophagus. -Came with decreased urine output -Denies fever, burning micturition, abdominal pain. -Came with altered sensorium. -Labs at the time of admission showed sodium 127, potassium 6.7, chloride 90, bicarb 17.2, anion gap 20, BUN 141, creatinine 6.7, lactate 5.9, calcium 7.1, magnesium 3.5. -Baseline creatinine is 0.9 on 07/31/2024 -CT abdomen pelvis showed no findings of urinary retention, bladder expansion, no significant prostatomegaly. -EKG showed normal sinus rhythm with first-degree AV block, peaking of [place], negative troponins. Plan -Nephrology Dr. Parsons was consulted -Patient got hemodialysis on 08/16, 08/17, 08/18 -Tunneled dialysis catheter was placed -Will continue to monitor renal functions -Renally dose medication and avoid nephrotoxic drugs. 08/19: Renal function consistent with ESRD labs. Will continue with hemodialysis per nephrology recommendations. Hepatitis panel taken, pending PPD. Patient may discharge with home hospice. Will discuss further with nephrology #Hypocalcemia, resolved #Hypermagnesemia, resolved #Hyperkalemia, resolved -At the time of admission, calcium 7.1, magnesium 3.5, potassium is 6.7 -Likely due to combined poor oral intake and PILAR -On 08/17, potassium is 5.2, calcium is 7.4, magnesium is 2.8 -As of 08/18, all 3 electrolytes are within normal limits. Plan -Patient received 3 hemodialysis sessions on 08/16, 08/17, 08/18 -Will continue to monitor electrolytes and manage accordingly. #Anion gap metabolic acidosis, resolving #Elevated lactic acidosis Most likely in the setting of underlying kidney failure. Admission lactic acidosis 5.9. Status post 2 L bolus fluids, lactic acid increased to 7.9 Plan -Patient was started on hemodialysis -Will continue to monitor labs #CAP CT abdomen pelvis showed significant bilateral pneumonia with chest x-ray showing more prominence in right lung. Patient is denying any coughing or shortness of breath, fever or chills. Denies any close sick contacts. Currently saturating at 98% via 4 L nasal cannula. -IV doxycycline 100 BID -IV Rocefin 1 gm daily #Hx gastric carcinoma with gastric outlet obstruction Diagnosis made 06/2024. 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 Patient has been following with Dr. Guevara on oncology. Currently has port cath placed for chemotherapy. Experiencing decreased appetite, fatigue, dysphagia. Poor oral intake with significant weight loss. -Dr. Guevara consulted -0.5 mg IV Dilaudid every 4 hours as needed for pain ? Megestrol for appetite stimulant ? Zofran 4 mg every 6 hours as needed for nausea ? Pantoprazole 40 mg IV daily ? Mirtazapine for depression ? Refer to speech pathology--started patient on blenderized diet and boost ? Referral to dietitian ? Aspiration precautions 08/19: Case discussed with oncology over the phone, who recommended liver biopsy for further tissue sampling for NGS. At this time patient is considering home hospice. Ultimately if patient wants to continue with full treatment, will obtain biopsy of liver mets as per oncology recommendations. #Hx atrial fibrillation, rate controlled EKG showed mild normal sinus rhythm. -Jack vasc score 2 -continue amiodarone 200 mg daily 08/19: Started metoprolol 50 mg daily due to SBP in 140s. Continue to monitor vital signs and consider lowering dose of metoprolol if BP drops #Hx of possible hypotension, improved Patient was recently started on midodrine [address] Spencer outpatient. Hold midodrine at this time. Will continue to monitor vital signs and possibly reduce metoprolol dose #Hx BPH -Continue tamsulosin 0.4 mg PO daily ? Finasteride 5 mg p.o. daily Health maintenance: Dispo: Tunnel dialysis catheter is placed; pending [facility], outpatient chair; patient also considering hospice DVT prophylaxis: Subcu heparin CODE STATUS: Full code Diet: Blenderized Patient seen and care discussed with my attending Dr. Anna. Damien Miner MD PGY-3 Attending Provider Attestation/Addendum I have discussed and was present for the essential components of the history, physical examination, diagnosis, and treatment plan with the resident. I agree with the patient's care as documented by the resident and amended herein by me. Jaswinder Anna DO. Although this document has been carefully reviewed, there may still be some phonetic and other typographical errors. These errors are purely grammatical due to imperfections in the software program and should not be construed in any way to compromise the substance of the patient's medical care during this visit.
--- NOTE | 2024-08-19 13:09 | PC.SS ---
SS was informed by that pt is interested in Hospice services. Dr. Miner advised pt to speak it over with and once he has and they have an agreement hospice order would be placed.
[2024-08-19 13:53] LABS: Path Review Blood Smear Sent to Pathologist
--- NOTE | 2024-08-19 15:43 | PD.RESEVENT ---
Documentation for date of: 08/19/24 Event Note Event Note: Discussed POLST form with patient. RN Edith and PGY 1 Dr. Robles present at bedside. Patient was alert and oriented x 3, baseline and had capacity to make decision. We discussed the POLST form and patient requested for DNR and comfort focused treatment without any artificial nutrition. Patient had the opportunity ask questions which were answered to his satisfaction. Copy of POLST form was placed in patient's chart with original given back to patient. CODE STATUS changed to DNR/DNI. Patient seen and care discussed with my attending Dr. Anna. Damien Miner MD PGY-3
--- NOTE | 2024-08-19 15:56 | PC.NURSE ---
LEONARDO reviewed and completed at bedside with patient by Dr. Miner, also present Dr. Robles and Edith CHÁVEZ. All questions asked and answered to patient satisfaction.
[2024-08-19] MEDS: MORPHINE SULF LIQD 10 MG/5 ML UDC PO (20:00)
[2024-08-19] MEDS: MIRTAZAPINE 15 MG TABLET PO (20:00)
[2024-08-20] VITALS (28 sets, daily range): BP systolic 98–139; BP diastolic 45–90; PULSE 62–131; RESP 18–30; TEMP 36.1–36.8; O2SAT 90–99; BMI 21.9
[2024-08-20] MEDS: ALBUTEROL/IPRATROPIUM (Duoneb) RT SOL 3 ML NEBU INH ×3 (01:16→18:55)
[2024-08-20 01:26] LABS: Hepatitis A Antibody IgM Non Reactive (Non React); Hepatitis B Core Antibody IgM Non Reactive (Non React); Hepatitis B Surface Antigen Non Reactive (Non React); Hepatitis C Antibody Reactive (Non React)
[2024-08-20 05:49] LABS: Basophils # (Auto) 0.2 Thou/mm3 (0.0-0.2); Basophils % (Auto) 1 % (0-2.5); Eosinophils # (Auto) 0.2 Thou/mm3 (0.0-0.5); Eosinophils % (Auto) 1 % (0-10); Hematocrit 32.2 % (41.0-53.0); Hemoglobin 10.4 g/dL (13.5-16.0); Immature Granulocytes % (Auto) 12 % (0-0); Lymphocytes # (Auto) 1.2 Thou/mm3 (1.0-4.8); Lymphocytes % (Auto) 7 % (10-50); Mean Corpuscular HGB Conc 32.3 g/dl (31.0-37.0); Mean Corpuscular Hemoglobin 28.4 pg (25.0-35.0); Mean Corpuscular Volume 88 fL (80-100); Monocytes # (Auto) 1.6 Thou/mm3 (0.0-0.8); Monocytes % (Auto) 9 % (0-12); Neutrophils # (Auto) 12.5 Thou/mm3 (1.8-7.7); Neutrophils % (Auto) 71 % (37-80); Nucleated Red Blood Cell # 0.12 Thou/mm3 (0.00-0.00); Nucleated Red Blood Cell % 1 /100 WBC (0); Platelet Count 97 Thou/mm3 (140-440); RDW Standard Deviation 54.1 fL (35.1-43.9); Red Blood Count 3.66 Miln/mm3 (4.50-5.90); White Blood Count 17.7 Thou/mm3 (3.8-10.6)
[2024-08-20 06:41] LABS: Albumin, Serum 3.1 gm/dL (3.4-4.8); Anion Gap 16 (7-16); BUN/Creatinine Ratio 16 Ratio (12-20); Blood Urea Nitrogen 62 mg/dL (9-23); Calcium 9.4 mg/dL (8.3-10.6); Calcium (Corrected) 10.1 mg/dL (8.5-10.1); Carbon Dioxide 20.8 mMol/L (20.0-31.0); Chloride 98 mMol/L (98-107); Creatinine (Component) 3.9 mg/dL (0.6-1.3); Glucose 69 mg/dL (74-106); Osmolality,Calculated 285 (275-295); Phosphorous 4.3 mg/dL (2.4-5.1); Potassium 4.2 mMol/L (3.4-5.1); Sodium 135 mMol/L (136-145); eGFR 16 See Note
[2024-08-20] MEDS: PANTOPRAZOLE INJ 40 MG VIAL IVP (08:05)
[2024-08-20] MEDS: MORPHINE SULF LIQD 10 MG/5 ML UDC PO ×2 (08:06→21:09)
--- NOTE | 2024-08-20 09:12 | PC.SS ---
rounding note: SS spoke to physician and patient/family are discussing hospice. If patient/family decide upon hospice services, then he will be discharged today.
[2024-08-20] MEDS: HYDROmorphone INJ 2 MG/ML VIAL 0.5 MG IVP ×4 (10:53→23:43)
--- NOTE | 2024-08-20 12:01 | PC.SS ---
Follow up note: SS submitted all dialysis documentation to [facility]. Patient is a new hemodialysis patient. He is also discussing hospice and if he chooses this wants to continue dialysis treatment.
[2024-08-20] MEDS: EPOETIN ALFA-EPBX INJ 10,000 UNIT/ML VIAL (ESRD) 10000 UNIT SC (12:17)
--- NOTE | 2024-08-20 12:22 | PC.NURSE ---
PT BP TRENDING DOWN AND HR TRENDING UP, PT DENIES ALL COMPLAINTS. UF GOAL LOWERED TO JUST CLEANING. WILL CONT. TO MONITOR
--- NOTE | 2024-08-20 12:33 | PD.RESPRO ---
Documentation for date of: 08/20/24 Subjective Subjective Interval history: Patient seen and examined at bedside this morning. No acute overnight events. Vitals, labs reviewed. WBC with mild increase, hemoglobin stable, platelets continue to decrease but no active bleed noted at this time. CHEM panel consistent with ESRD labs and increased creatinine from yesterday. Patient undergo hemodialysis today at 11 AM. At bedside, patient endorses improvement of pain after medications were adjusted. He is still AAOx3 with decision-making capacity. Will have [employer] speak to patient and give more information regards to hospice. Patient is deciding between further treatment including liver biopsy versus going home on hospice secondary to gastric cancer, with hospice accommodating home dialysis. Currently pending PPD read on 08/21 at 9 AM, and outpatient hemodialysis. Exam Vital Signs Temp Pulse Resp BP Pulse Ox O2 Del Method O2 Flow Rate 98.2 F 62 18 110/62 95 Nasal Cannula 5 08/20/24 11:48 08/20/24 12:30 08/20/24 11:48 08/20/24 12:30 08/20/24 11:48 08/20/24 07:52 08/20/24 11:48 Narrative Exam Gen: AAOx3, elderly male, appears chronically ill, cachectic, pleasant to speak with HEENT: PERRLA, EOMI, MM dry, left TDC noted without erythema, bleeding or discharge CVS: normal S1, S2. RRR. No MRG Resp: CTA B/L. No adventitious breath sounds. Mildly decreased in right lower base Abd: soft, non-tender, non-distended. BS+ in all 4 quadrants : [place] catheter noted, minimal urine output MSK: Good ROM in BUE & BLE. Trace edema in BLE. Senile purpura Neuro: CN II-XII grossly intact. No focal deficits appreciated Objective Labs 08/20/24 05:09 08/20/24 05:09 Labs: Laboratory Results - last 24 hr 08/19/24 08/20/24 04:36 05:09 WBC 17.7 H RBC 3.66 L Hgb 10.4 L Hct 32.2 L MCV 88 MCH 28.4 MCHC 32.3 RDW Std Deviation 54.1 H Plt Count 97 L D Neut % (Auto) 71 Lymph % (Auto) 7 L [place] % (Auto) 9 Eos % (Auto) 1 Baso % (Auto) 1 Neut # (Auto) 12.5 H Lymph # (Auto) 1.2 [place] # (Auto) 1.6 H Eos # (Auto) 0.2 Baso # (Auto) 0.2 Immature Gran # (Auto) 2.10 H Absolute Nucleated RBC 0.12 H Immature Gran % 12 H Nucleated RBC % 1 H Smear Path Review Sent to Pathologist Sodium 135 L Potassium 4.2 D Chloride 98 Carbon Dioxide 20.8 Anion Gap 16 BUN 62 H Creatinine 3.9 H D Estim Creat Clear Calc 16.0 L eGFR 16 L BUN/Creatinine Ratio 16 Glucose 69 L Calculated Osmolality 285 Calcium 9.4 Corrected Calcium 10.1 Phosphorus 4.3 Albumin 3.1 L Hepatitis A IgM Ab Non Reactive Hep Bs Antigen Non Reactive Hep B Core IgM Ab Non Reactive Hepatitis C Antibody Reactive A Quality Measures Quality Measures VTE prophylaxis Advance care planning discussed with:: patient and spouse Assessment & Plan Assessment Current Active Medications: Generic Name Dose Route Start Last Admin Trade Name Freq PRN Reason Stop Dose Admin Acetaminophen 650 mg 08/16/24 08:35 08/19/24 22:19 Acetaminophen 325 Mg Tablet PO 09/14/24 13:53 650 mg Q6H PRN Administration Fever >100.3 or pain (1-3) Albuterol/Ipratropium 3 ml 08/18/24 07:00 08/20/24 06:19 Albuterol/Ipratropium (Duoneb) Rt Zamzam 3 Ml Nebu INH 09/17/24 06:59 3 ml Q6HRRT JADE Administration Albuterol/Ipratropium 3 ml 08/18/24 01:57 08/18/24 02:36 Albuterol/Ipratropium (Duoneb) Rt Zamzam 3 Ml Nebu INH 09/17/24 02:59 3 ml Q4HRRT PRN Administration Wheezing Amiodarone HCl 200 mg 08/15/24 15:30 08/19/24 08:07 Amiodarone Hcl 200 Mg Tablet PO 09/14/24 15:29 200 mg DAILY JADE Administration Calcium Carbonate 600 mg 08/16/24 09:00 08/19/24 08:07 Calcium Carbonate 600 Mg Tablet PO 09/15/24 08:59 600 mg QDAY JADE Administration Docusate Sodium 100 mg 08/15/24 15:13 08/18/24 03:20 Docusate Sod Liqd 100 Mg/10 Ml Udc PO 09/14/24 20:59 100 mg BID PRN Administration constipation Protocol Epoetin Micheal 10,000 unit 08/20/24 18:00 08/20/24 12:17 Epoetin Micheal-Epbx Inj 10,000 Unit/Ml Vial (Esrd) SC 08/20/24 18:01 10,000 unit X1 ONE Administration Heparin Sodium (Porcine) 5,000 unit 08/15/24 21:00 08/16/24 09:24 Heparin Sod Inj 5000 Unit/Ml Vial SC 08/29/24 20:59 5,000 unit Q12HR JADE Administration Heparin Sodium (Porcine) 3,500 unit 08/18/24 10:55 08/18/24 11:07 Heparin Sod Inj 1000 Unit/Ml Vial 10 Ml INDWELLCAT 3,500 unit PRN PRN Administration DIALYSIS Hydromorphone HCl 0.5 mg 08/19/24 16:25 08/20/24 10:53 Hydromorphone Inj 2 Mg/Ml Vial IVP 08/24/24 17:59 0.5 mg Q2HR PRN Administration BREAKTHROUGH PAIN (SEVERE) Albumin Human 25 gm in 100 mls @ 100 mls/hr 08/16/24 11:44 08/18/24 19:48 Albuminar-25 Ivpb IV Infused PRN PRN Infusion DIALYSIS Lidocaine 1 patch 08/17/24 11:30 08/19/24 08:37 Lidocaine 5% 1 Patch TOP 09/16/24 11:29 1 patch DAILY JADE Administration Megestrol Acetate 400 mg 08/15/24 15:30 08/19/24 08:11 Megestrol Acet Susp 400 Mg/10 Ml Udc PO 09/14/24 15:29 400 mg DAILY JADE Administration Metoprolol Succinate 50 mg 08/19/24 09:00 08/19/24 08:34 Metoprolol Succinate Xl 25 Mg Tabcr PO 09/18/24 08:59 50 mg QDAY JADE Administration Midodrine 5 mg 08/19/24 16:27 Midodrine 5 Mg Tablet PO 09/14/24 20:59 BID PRN SBP < 90 Mirtazapine 15 mg 08/19/24 21:00 08/19/24 20:00 Mirtazapine 15 Mg Tablet PO 09/18/24 20:59 15 mg HS JADE Administration Morphine Sulfate 10 mg 08/19/24 21:00 08/20/24 08:06 Morphine Sulf Liqd 10 Mg/5 Ml Udc PO 08/24/24 20:59 10 mg Q12HR JADE Administration Ondansetron HCl 4 mg 08/15/24 14:57 08/18/24 09:44 Ondansetron Inj 2 Mg/Ml Inj 2 Ml IV 09/14/24 14:56 4 mg Q6HR PRN Administration NAUSEA OR VOMITING Protocol Pantoprazole Sodium 40 mg 08/16/24 09:00 08/20/24 08:05 Pantoprazole Inj 40 Mg Vial IVP 09/15/24 08:59 40 mg QDAY JADE Administration Plan Patient is a 74-year-old male PMH of A-fib rate controlled on amiodarone, BPH, hypertension, hyperlipidemia, insomnia, history of gastric carcinoma with esophageal obstruction, pericardial effusion status post pericardiocentesis who presented to ED today after experiencing urinary retention for more than 12 hours. Denies any abdominal pain, suprapubic pain, dysuria. Endorses decreased oral intake solids and liquids due to dysphagia of underlying gastric carcinoma and esophageal mass. Patient admitted for management of PILAR in setting of urinary retention/poor oral intake and hyperkalemia. #Goals of care Had a short goals of care conversation with patient and his , with hospitalist team and RN present. Discussed the need for liver biopsy for further tissue sampling to send for next generation sequencing, as recommended by oncologist. At this time patient is considering home hospice for discharge and to forego further treatment. He plans to discuss this further with his and family. Patient stated at this time he would like to be made DNR/DNI. POLST form will be signed, with copy placed in patient's chart, and original given to patient's . 08/20: [employer] spoke with family and patient ultimately decided on choosing hospice. They wished to discuss decision with patient's other daughter, however did advise [employer] to consult hospice agency. Patient will likely go home on hospice for gastric adenocarcinoma, with hospice agency accommodating hemodialysis. # Acute metabolic encephalopathy, resolved #Acute renal failure, likely prerenal in the setting of poor oral intake due to gastric carcinoma, resolving -Patient is having poor oral intake secondary to gastric carcinoma and tumor obstructing the esophagus. -Came with decreased urine output -Denies fever, burning micturition, abdominal pain. -Came with altered sensorium. -Labs at the time of admission showed sodium 127, potassium 6.7, chloride 90, bicarb 17.2, anion gap 20, BUN 141, creatinine 6.7, lactate 5.9, calcium 7.1, magnesium 3.5. -Baseline creatinine is 0.9 on 07/31/2024 -CT abdomen pelvis showed no findings of urinary retention, bladder expansion, no significant prostatomegaly. -EKG showed normal sinus rhythm with first-degree AV block, peaking of Twaves, negative troponins. Plan -Nephrology Dr. Parsons was consulted -Patient got hemodialysis on 08/16, 08/17, 08/18 -Tunneled dialysis catheter was placed -Will continue to monitor renal functions -Renally dose medication and avoid nephrotoxic drugs. 08/19: Renal function consistent with ESRD labs. Will continue with hemodialysis per nephrology recommendations. Hepatitis panel taken, pending PPD. Patient may discharge with home hospice. Will discuss further with nephrology 08/20: Patient to resume hemodialysis today. Has chosen hospice at this time. PPD will be read on 08/21 at 9 AM. Pending outpatient chair time. #Hypocalcemia, resolved #Hypermagnesemia, resolved #Hyperkalemia, resolved -At the time of admission, calcium 7.1, magnesium 3.5, potassium is 6.7 -Likely due to combined poor oral intake and PILAR -On 08/17, potassium is 5.2, calcium is 7.4, magnesium is 2.8 -As of 08/18, all 3 electrolytes are within normal limits. Plan -Patient received 3 hemodialysis sessions on 08/16, 08/17, 08/18 -Will continue to monitor electrolytes and manage accordingly. #Anion gap metabolic acidosis, resolving #Elevated lactic acidosis Most likely in the setting of underlying kidney failure. Admission lactic acidosis 5.9. Status post 2 L bolus fluids, lactic acid increased to 7.9 Plan -Patient was started on hemodialysis -Will continue to monitor labs #CAP CT abdomen pelvis showed significant bilateral pneumonia with chest x-ray showing more prominence in right lung. Patient is denying any coughing or shortness of breath, fever or chills. Denies any close sick contacts. Currently saturating at 98% via 4 L nasal cannula. -IV doxycycline 100 BID -IV Rocefin 1 gm daily #Hx gastric carcinoma with gastric outlet obstruction Diagnosis made 06/2024. 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 Patient has been following with Dr. Guevara on oncology. Currently has port cath placed for chemotherapy. Experiencing decreased appetite, fatigue, dysphagia. Poor oral intake with significant weight loss. -Dr. Guevara consulted ? Megestrol for appetite stimulant ? Zofran 4 mg every 6 hours as needed for nausea ? Pantoprazole 40 mg IV daily ? Mirtazapine for depression ? Refer to speech pathology--started patient on blenderized diet and boost ? Referral to dietitian ? Aspiration precautions 08/19: Case discussed with oncology over the phone, who recommended liver biopsy for further tissue sampling for NGS. At this time patient is considering home hospice. Ultimately if patient wants to continue with full treatment, will obtain biopsy of liver mets as per oncology recommendations. 08/20: Patient has chosen hospice at this time. [employer] has sent referral. Pain regimen changed to 10 mg morphine p.o. every 12 hours with 0.5 mg Dilaudid every 2 HR as needed for breakthrough. Monitor for respiratory depression #Hx atrial fibrillation, rate controlled EKG showed mild normal sinus rhythm. -Jack vasc score 2 -continue amiodarone 200 mg daily 08/19: Started metoprolol 50 mg daily due to SBP in 140s. Continue to monitor vital signs and consider lowering dose of metoprolol if BP drops #Hx of possible hypotension, improved Patient was recently started on midodrine [address] Spencer outpatient. Hold midodrine at this time. Will continue to monitor vital signs and possibly reduce metoprolol dose if patient becomes hypotensive #Hx BPH -Continue tamsulosin 0.4 mg PO daily ? Finasteride 5 mg p.o. daily Health maintenance: Dispo: Tunnel dialysis catheter is placed; pending PPD, outpatient HD chair; patient has chosen hospice, referral sent DVT prophylaxis: Subcu heparin CODE STATUS: Full code Diet: Blenderized Patient seen and care discussed with my attending Dr. Anna. Damien Miner MD PGY-3 Attending Provider Attestation/Addendum I have discussed and was present for the essential components of the history, physical examination, diagnosis, and treatment plan with the resident. I agree with the patient's care as documented by the resident and amended herein by me. Jaswinder Anna DO. Although this document has been carefully reviewed, there may still be some phonetic and other typographical errors. These errors are purely grammatical due to imperfections in the software program and should not be construed in any way to compromise the substance of the patient's medical care during this visit.
--- NOTE | 2024-08-20 13:03 | PC.NURSE ---
PT HR ELEVATED PT DENIES ALL C/O CHEST PAIN, PRESSURE, BONNER, SOB OR DISCOMFORT. BFR LOWERED TO 250 WILL CONT. TO MONITOR
--- NOTE | 2024-08-20 14:54 | PC.SS ---
COMPOUNDER met with patient, patient's spouse and patient's daughter (Alice Bolaños [phone]) to provide education on hospice services. Bedside nurse also present during discussion. Patient wants to continue participating with dialysis sessions upon transitioning to hospice. COMPOUNDER informed patient that hospice diagnosis would be for gastric carcinoma. Dialysis would be suitable for comfort. Patient requesting to transition home. COMPOUNDER informed patient that dialysis outpatient schedule would have to be obtained prior to discharge. Patient informed COMPOUNDER desire to transition home with hospice. At this point, patient spouse; informed COMPOUNDER that focus of discussion was to provide overview on hospice services. COMPOUNDER informed family present at bedside to discuss hospice transition further with the patient. COMPOUNDER informed by patient's daughter, Alice; that preferred hospice provider would be [facility]. COMPOUNDER to follow up with patient and family. Attending and residential team updated.
[2024-08-20] MEDS: HEPARIN SOD INJ 1000 UNIT/ML VIAL 10 ML 3500 UNIT INDWELLCAT (15:18)
--- NOTE | 2024-08-20 15:53 | PD.NEPHPROG ---
Documentation for date of: 08/20/24 Subjective Subjective Interval history: Mr. Da Silva is a 74-year-old male with past medical history of A-fib (rate controlled on amiodarone), BPH, hypertension, hyperlipidemia, insomnia, history of gastric carcinoma with esophageal obstruction, pericardial effusion status post pericardiocentesis who presented to ED on 08/15 after experiencing urinary retention. 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 Underwent pericardiocentesis. During this admission he presented with symptoms of urinary retention have been ongoing since past 12 hours. Patient was confused, history obtained from family at bedside who stated that patient has had poor oral intake with difficulty swallowing due to obstruction. Has had significant weight loss and dysphagia. Patient denies any dysuria but endorses difficulty in maintaining stream. He is compliant with BPH medications. Oncologist Dr. Guevara has been following patient since previous discharge. Patient has Port-A-cath placed in preparation for chemotherapy. He denies any constipation, diarrhea, blood in the stool, abdominal pain, fever, or chills. Endorses weakness. At home, diet consists of soft foods and little pieces. No issues of aspiration. ED course significant for, vitals of blood pressure 108/59, pulse 75, 92% O2 on room air. ED labs revealed WBC 8.1, hemoglobin 11.4, platelets 228, hyponatremic 128, hyperkalemic 6.7, bicarb 17.2, AG 20, Cr 6.7, lactic acid 5.9, corrected calcium 7.0, magnesium 3.5, ALP 710, BNP 512, procalcitonin 0.99. UA negative. EKG showed normal sinus rhythm with first-degree AV block, peaking of Twaves, negative troponins. Chest x-ray bilateral pneumonia more severe in right lung. CT abdomen pelvis showing bibasilar pneumonia, cirrhosis, no significant prostatomegaly. In ED patient was given calcium carbonate x 1, 2 L bolus normal saline, 5 units regular insulinAmp D5W, Rocephin times 1 g x 1, azithromycin 500 mg x 1. Stat repeat CMP no significant improvement of potassium at 6.4, worsening acidosis bicarb 14.8, creatinine 6.5 calcium 7.1, 3 mag 3.5. Repeat lactic acid elevated to 7.9. Patient admitted for managemenet of PILAR in setting of urinary retention/poor oral intake and hyperkalemia. Nephrology consulted for same. Home medications amiodarone 200 mg p.o. daily metoprolol succinate 50 twice daily, Lasix 40 daily, lidocaine patch, citalopram 40 mg p.o. daily, famotidine 20 mg, trazodone 100 mg, mirtazapine 15 mg, finasteride 5 mg, rosuvastatin 40 mg, tamsulosin 0.4 mg Nephrology was consulted for PILAR on CKD, patient has had minimal urine output in setting of acute renal failure and poor oral intake, patient' mentation has worsened compared to admission, more confused, discussed with family agreeable to start dialysis, patient will receive dialysis today after temporary dialysis catheter placement. Discussed with ICU team to assist with placement of temporary catheter. Patient's potassium continues to remain elevated. 08/20/2024 patient currently seen on dialysis. Family considering hospice although wanted to continue with hemodialysis. Patient complaining of fatigue. Decreased p.o. intake. WBC 12.7, hemoglobin 10.4, platelets 97,000. Sodium 135, potassium 4.2, BUN 62, creatinine 3.9 hepatitis panel shows hep C positive. PPD placed. Outpatient dialysis arrangements pending. Still seems to be very sick looking. Has underlying cancer. Review of Systems Review of Systems Narrative Review of Systems: Does have some shortness of breath. Decreased p.o. intake. Significant functional decline.Complaining of extreme fatigue and tired. Denies any chest pain. Exam Vital Signs Temp Pulse Resp BP Pulse Ox O2 Del Method O2 Flow Rate 36.8 C 90 18 124/90 H 95 Nasal Cannula 5 08/20/24 15:09 08/20/24 15:09 08/20/24 15:09 08/20/24 15:09 08/20/24 15:09 08/20/24 07:52 08/20/24 15:09 Narrative Exam GENERAL APPEARANCE: Patient very cachectic. Lost weight. Temporal wasting noted. NECK: Neck supple, no JVD or bruit CARDIOVASCULAR: Heart regular, no murmurs LUNGS/CHEST: Few rhonchi noted bilaterally ABDOMEN: Soft, nontender, nondistended. No masses. Normal bowel sounds. EXTREMITIES: No edema, clubbing or cyanosis. SKIN: Left IJ PermCath. MUSCULOSKELETAL: Significant functional decline/gait imbalance NEUROLOGICAL : Alert and awake Objective Labs 08/21/24 05:08 08/21/24 05:08 Labs: Laboratory Results - last 24 hr 08/19/24 08/20/24 04:36 05:09 WBC 17.7 H RBC 3.66 L Hgb 10.4 L Hct 32.2 L MCV 88 MCH 28.4 MCHC 32.3 RDW Std Deviation 54.1 H Plt Count 97 L D Neut % (Auto) 71 Lymph % (Auto) 7 L [place] % (Auto) 9 Eos % (Auto) 1 Baso % (Auto) 1 Neut # (Auto) 12.5 H Lymph # (Auto) 1.2 [place] # (Auto) 1.6 H Eos # (Auto) 0.2 Baso # (Auto) 0.2 Immature Gran # (Auto) 2.10 H Absolute Nucleated RBC 0.12 H Immature Gran % 12 H Nucleated RBC % 1 H Sodium 135 L Potassium 4.2 D Chloride 98 Carbon Dioxide 20.8 Anion Gap 16 BUN 62 H Creatinine 3.9 H D Estim Creat Clear Calc 16.0 L eGFR 16 L BUN/Creatinine Ratio 16 Glucose 69 L Calculated Osmolality 285 Calcium 9.4 Corrected Calcium 10.1 Phosphorus 4.3 Albumin 3.1 L Hepatitis A IgM Ab Non Reactive Hep Bs Antigen Non Reactive Hep B Core IgM Ab Non Reactive Hepatitis C Antibody Reactive A Assessment & Plan Additional Assessment & Plan Additional Plan: Summary: Mr. Da Silva is a 74-year-old male PMH of A-fib rate controlled on amiodarone, BPH, hypertension, hyperlipidemia, insomnia, history of gastric carcinoma with esophageal obstruction, pericardial effusion status post pericardiocentesis who presented to ED today after experiencing urinary retention for more than 12 hours. Denies any abdominal pain, suprapubic pain, dysuria. Endorses decreased oral intake solids and liquids due to dysphagia of underlying gastric carcinoma and esophageal mass. Patient admitted for management of PILAR in setting of urinary retention/poor oral intake and hyperkalemia. Patient had continually decreased urine output, confusion and hyperkalemia, nephrology consulted, started patient on hemodialysis. #Acute renal failure secondary to ATN. Electrolyte imbalance corrected. Suspect prerenal azotemia leading towards ATN with decreased urine output-in the setting of gastric carcinoma and esophageal tumor obstruction. Patient has had poor oral intake including liquids. Significant weight loss in past month. Endorses no urinary output in past 12 hours. Denies any abdominal pain, suprapubic pain, dysuria. At home patient normally eats softened foods in small pieces with Ensure supplement. CT abdomen pelvis showed no findings of urinary retention, bladder expansion, no significant prostatomegaly. Patient currently seen on dialysis. Tolerating dialysis without any problems. Hemodialysis for 3 hours, 2K, ultrafiltration 1 L, Epogen 6000, no heparin ordered. Plan of care discussed with the dialysis nurse. Please see dialysis flowsheet for further details. Outpatient dialysis will be arranged. #CAP #Hx gastric carcinoma with gastric outlet obstruction #Hx atrial fibrillation, rate controlled #Hx of possible hypotension #Hx BPH Management as per primary team
[2024-08-20] MEDS: MIRTAZAPINE 15 MG TABLET PO (21:09)
[2024-08-21] VITALS (14 sets, daily range): BP systolic 103–140; BP diastolic 59–68; PULSE 92–105; RESP 17–25; TEMP 35.8–36.3; O2SAT 86–98; BMI 21.9
[2024-08-21] MEDS: ALBUTEROL/IPRATROPIUM (Duoneb) RT SOL 3 ML NEBU INH ×5 (01:00→22:07)
[2024-08-21] MEDS: HYDROmorphone INJ 2 MG/ML VIAL 0.5 MG IVP ×5 (04:27→23:05)
[2024-08-21 05:42] LABS: Basophils % (Auto) 0 % (0-2.5); Eosinophils # (Auto) 0.2 Thou/mm3 (0.0-0.5); Eosinophils % (Auto) 1 % (0-10); Hematocrit 34.8 % (41.0-53.0); Hemoglobin 11.1 g/dL (13.5-16.0); Immature Granulocytes % (Auto) 16 % (0-0); Immature Granulocytes Auto 3.86 Thou/mm3 (0.00-0.00); Lymphocytes # (Auto) 1.7 Thou/mm3 (1.0-4.8); Lymphocytes % (Auto) 7 % (10-50); Mean Corpuscular HGB Conc 31.9 g/dl (31.0-37.0); Mean Corpuscular Hemoglobin 28.2 pg (25.0-35.0); Mean Corpuscular Volume 88 fL (80-100); Monocytes # (Auto) 1.9 Thou/mm3 (0.0-0.8); Monocytes % (Auto) 8 % (0-12); Neutrophils # (Auto) 16.6 Thou/mm3 (1.8-7.7); Neutrophils % (Auto) 68 % (37-80); Nucleated Red Blood Cell # 0.37 Thou/mm3 (0.00-0.00); Nucleated Red Blood Cell % 2 /100 WBC (0); Platelet Count 104 Thou/mm3 (140-440); RDW Standard Deviation 55.2 fL (35.1-43.9); Red Blood Count 3.94 Miln/mm3 (4.50-5.90)
[2024-08-21 05:43] LABS: White Blood Count 24.3 Thou/mm3 (3.8-10.6)
[2024-08-21 06:45] LABS: Anion Gap 15 (7-16); BUN/Creatinine Ratio 12 Ratio (12-20); Blood Urea Nitrogen 37 mg/dL (9-23); Calcium 8.9 mg/dL (8.3-10.6); Carbon Dioxide 19.7 mMol/L (20.0-31.0); Chloride 98 mMol/L (98-107); Estimated Creatinine Clearance 20.8 mL/min (>60); Glucose 84 mg/dL (74-106); Osmolality,Calculated 274 (275-295); Potassium 4.4 mMol/L (3.4-5.1); Sodium 133 mMol/L (136-145); eGFR 21 See Note
[2024-08-21] MEDS: CALCIUM CARBONATE 600 MG TABLET PO (08:11)
[2024-08-21] MEDS: MEGESTROL ACET SUSP 400 MG/10 ML UDC PO (08:13)
[2024-08-21] MEDS: MORPHINE SULF LIQD 10 MG/5 ML UDC PO ×2 (08:13→21:52)
[2024-08-21] MEDS: PANTOPRAZOLE INJ 40 MG VIAL IVP (08:13)
[2024-08-21] MEDS: AMPICILLIN/SULBAC INJ 3 GM in SODIUM CHLORIDE 0.9% (P) 100 ML IV ×2 (09:27→21:56)
--- NOTE | 2024-08-21 09:41 | XR_ITS ---
Examination: AP chest single view Technique one AP portable upright chest single view Exam date and time: 03/21/2024 0952 hrs. Comparison August 16, 2024 Indications: Shortness of breath diminished breast sounds in the right lung on auscultation today. Findings: Significant right lung pneumonia Moderate CHF Mild enlargement cardiac contour with prominent vascular congestion and perihilar edema Right internal jugular Port-A-Cath tip SVC satisfactory position Left internal jugular dialysis catheter tips SVC satisfactory position Suspicious for significant right subpulmonic effusion Impression: Moderate CHF Significant right lung pneumonia Consider ultrasound right hemithorax to confirm right subpulmonic pleural effusion
[2024-08-21 10:31] LABS: Base Excess, Venous -7 (-3-3); O2 Saturation, Venous 82 % (96-97); PCO2, Venous 42 mmHg (36-56); PO2, Venous 41 mmHg (15-58); pH, Venous 7.27 (7.33-7.66)
--- NOTE | 2024-08-21 10:45 | PC.SS ---
BONDING EQUIPMENT OPERATOR informed by attending that the patient has declined hospice services at this time.
--- NOTE | 2024-08-21 10:58 | PD.RESPRO ---
Documentation for date of: 08/21/24 Subjective Subjective Interval history: Patient seen and examined at bedside this morning. No acute overnight events. On 08/20, patient decided for hospice, however this morning he changed his mind and wanted to proceed with full treatment. Will obtain liver biopsy as oncology requested more tissue for NexGen sequencing. Unfortunately IR unavailable today or tomorrow due to New Year's. CT-guided liver biopsy ordered for , 08/23/2024. Patient was made aware. Vitals, labs reviewed. WBC increasing, Unasyn started. Will follow-up with CXR, as diminished breath sounds noted in right base. PPD to be read today; will follow-up with CM for outpatient hemodialysis chair. At bedside, patient states he had a good night sleep, with no further complaints at this time. Exam Vital Signs Temp Pulse Resp BP Pulse Ox O2 Del Method O2 Flow Rate 96.9 F 99 23 H 103/59 L 93 L Nasal Cannula 5 08/21/24 08:00 08/21/24 08:14 08/21/24 08:00 08/21/24 08:14 08/21/24 08:00 08/21/24 08:00 08/21/24 08:00 Narrative Exam Gen: AAOx3, elderly male, appears chronically ill, cachectic, pleasant to speak with HEENT: PERRLA, EOMI, MM dry, left TDC noted without erythema, bleeding or discharge CVS: normal S1, S2. RRR. No MRG Resp: Diminished in right lower base Abd: soft, non-tender, non-distended. BS+ in all 4 quadrants : Eldridge catheter noted, minimal urine output MSK: Good ROM in BUE & BLE. Pitting edema in BLE. Senile purpura Neuro: CN II-XII grossly intact. No focal deficits appreciated Objective Labs 08/21/24 05:08 08/21/24 05:08 Labs: Laboratory Results - last 24 hr 08/21/24 08/21/24 05:08 10:24 WBC 24.3 H D RBC 3.94 L Hgb 11.1 L Hct 34.8 L MCV 88 MCH 28.2 MCHC 31.9 RDW Std Deviation 55.2 H Plt Count 104 L Neut % (Auto) 68 Lymph % (Auto) 7 L [place] % (Auto) 8 Eos % (Auto) 1 Baso % (Auto) 0 Neut # (Auto) 16.6 H Lymph # (Auto) 1.7 [place] # (Auto) 1.9 H Eos # (Auto) 0.2 Baso # (Auto) 0.0 Immature Gran # (Auto) 3.86 H Absolute Nucleated RBC 0.37 H Immature Gran % 16 H Nucleated RBC % 2 H VBG pH 7.27 L VBG pCO2 42 VBG pO2 41 VBG O2 Sat (Laury) 82 L VBG Base Excess -7 L Sodium 133 L Potassium 4.4 Chloride 98 Carbon Dioxide 19.7 L Anion Gap 15 BUN 37 H Creatinine 3.0 H D Estim Creat Clear Calc 20.8 L eGFR 21 L BUN/Creatinine Ratio 12 Glucose 84 Calculated Osmolality 274 L Calcium 8.9 ABG Interpretation ABG results: 08/21/24 10:24 VBG pH 7.27 L VBG pCO2 42 VBG pO2 41 VBG Base Excess -7 L Quality Measures Quality Measures VTE prophylaxis Advance care planning discussed with:: patient and spouse Assessment & Plan Assessment Current Active Medications: Generic Name Dose Route Start Last Admin Trade Name Freq PRN Reason Stop Dose Admin Acetaminophen 650 mg 08/16/24 08:35 08/19/24 22:19 Acetaminophen 325 Mg Tablet PO 09/14/24 13:53 650 mg Q6H PRN Administration Fever >100.3 or pain (1-3) Albuterol/Ipratropium 3 ml 08/18/24 07:00 08/21/24 06:46 Albuterol/Ipratropium (Duoneb) Rt Zamzam 3 Ml Nebu INH 09/17/24 06:59 3 ml Q6HRRT JADE Administration Albuterol/Ipratropium 3 ml 08/18/24 01:57 08/18/24 02:36 Albuterol/Ipratropium (Duoneb) Rt Zamzam 3 Ml Nebu INH 09/17/24 02:59 3 ml Q4HRRT PRN Administration Wheezing Amiodarone HCl 200 mg 08/15/24 15:30 08/21/24 08:14 Amiodarone Hcl 200 Mg Tablet PO 09/14/24 15:29 Not Given DAILY JADE Calcium Carbonate 600 mg 08/16/24 09:00 08/21/24 08:11 Calcium Carbonate 600 Mg Tablet PO 09/15/24 08:59 600 mg QDAY JADE Administration Docusate Sodium 100 mg 08/15/24 15:13 08/18/24 03:20 Docusate Sod Liqd 100 Mg/10 Ml Udc PO 09/14/24 20:59 100 mg BID PRN Administration constipation Protocol Heparin Sodium (Porcine) 5,000 unit 08/15/24 21:00 08/21/24 08:15 Heparin Sod Inj 5000 Unit/Ml Vial SC 08/29/24 20:59 Not Given Q12HR JADE Heparin Sodium (Porcine) 3,500 unit 08/18/24 10:55 08/20/24 15:18 Heparin Sod Inj 1000 Unit/Ml Vial 10 Ml INDWELLCAT 3,500 unit PRN PRN Administration DIALYSIS Hydromorphone HCl 0.5 mg 08/19/24 16:25 08/21/24 04:27 Hydromorphone Inj 2 Mg/Ml Vial IVP 08/24/24 17:59 0.5 mg Q2HR PRN Administration BREAKTHROUGH PAIN (SEVERE) Albumin Human 25 gm in 100 mls @ 100 mls/hr 08/16/24 11:44 08/18/24 19:48 Albuminar-25 Ivpb IV Infused PRN PRN Infusion DIALYSIS Ampicillin Sodium/Sulbactam 100 mls @ 200 mls/hr 08/21/24 08:15 08/21/24 09:27 Sodium 3 gm/ Sodium Chloride IV 08/28/24 08:14 200 mls/hr Q12H JADE Administration Lidocaine 1 patch 08/17/24 11:30 08/21/24 08:16 Lidocaine 5% 1 Patch TOP 09/16/24 11:29 Not Given DAILY JADE Megestrol Acetate 400 mg 08/15/24 15:30 08/21/24 08:13 Megestrol Acet Susp 400 Mg/10 Ml Udc PO 09/14/24 15:29 400 mg DAILY JADE Administration Metoprolol Succinate 50 mg 08/19/24 09:00 08/21/24 08:13 Metoprolol Succinate Xl 25 Mg Tabcr PO 09/18/24 08:59 Not Given QDAY JADE Midodrine 5 mg 08/19/24 16:27 Midodrine 5 Mg Tablet PO 09/14/24 20:59 BID PRN SBP < 90 Mirtazapine 15 mg 08/19/24 21:00 08/20/24 21:09 Mirtazapine 15 Mg Tablet PO 09/18/24 20:59 15 mg HS JADE Administration Morphine Sulfate 10 mg 08/19/24 21:00 08/21/24 08:13 Morphine Sulf Liqd 10 Mg/5 Ml Udc PO 08/24/24 20:59 10 mg Q12HR JADE Administration Ondansetron HCl 4 mg 08/15/24 14:57 08/18/24 09:44 Ondansetron Inj 2 Mg/Ml Inj 2 Ml IV 09/14/24 14:56 4 mg Q6HR PRN Administration NAUSEA OR VOMITING Protocol Pantoprazole Sodium 40 mg 08/16/24 09:00 08/21/24 08:13 Pantoprazole Inj 40 Mg Vial IVP 09/15/24 08:59 40 mg QDAY JADE Administration Plan Patient is a 74-year-old male PMH of A-fib rate controlled on amiodarone, BPH, hypertension, hyperlipidemia, insomnia, history of gastric carcinoma with esophageal obstruction, pericardial effusion status post pericardiocentesis who presented to ED today after experiencing urinary retention for more than 12 hours. Denies any abdominal pain, suprapubic pain, dysuria. Endorses decreased oral intake solids and liquids due to dysphagia of underlying gastric carcinoma and esophageal mass. Patient admitted for management of PILAR in setting of urinary retention/poor oral intake and hyperkalemia. #Goals of care Had a short goals of care conversation with patient and his , with hospitalist team and RN present. Discussed the need for liver biopsy for further tissue sampling to send for next generation sequencing, as recommended by oncologist. At this time patient is considering home hospice for discharge and to forego further treatment. He plans to discuss this further with his and family. Patient stated at this time he would like to be made DNR/DNI. POLST form will be signed, with copy placed in patient's chart, and original given to patient's . 08/20: [employer]ATOR [employer]PLAIN[employer] spoke with family and patient ultimately decided on choosing hospice. They wished to discuss decision with patient's other daughter, however did advise INVESTIGATOR [employer]ILL COMPLAINTS to consult hospice agency. Patient will likely go home on hospice for gastric adenocarcinoma, with hospice agency accommodating hemodialysis. 08/21: Patient with no longer like to be discharged on home hospice. Will proceed with full treatment including chemotherapy. Will obtain liver mets biopsy on , 08/23/2024 once IR is back. #CAP CT abdomen pelvis showed significant bilateral pneumonia with chest x-ray showing more prominence in right lung. Patient is denying any coughing or shortness of breath, fever or chills. Denies any close sick contacts. 08/21: Patient completed Rocephin, doxycycline IV antibiotic course. Noted that his white count was began to increase and diminished breath sounds in right base, therefore CXR was ordered which showed: Significant right lung pneumonia => started Unasyn #Pleural effusion As seen on CXR => may be malignant effusion Will follow-up with nephrology if hemodialysis will resolve pleural effusion. Otherwise we will touch base with critical care team and do bedside ultrasound with possible bedside thoracentesis If patient requires thoracentesis, will send fluid for analysis including cytology # Acute metabolic encephalopathy, resolved #Acute renal failure, likely prerenal in the setting of poor oral intake due to gastric carcinoma, resolving -Patient is having poor oral intake secondary to gastric carcinoma and tumor obstructing the esophagus. -Came with decreased urine output -Denies fever, burning micturition, abdominal pain. -Came with altered sensorium. -Labs at the time of admission showed sodium 127, potassium 6.7, chloride 90, bicarb 17.2, anion gap 20, BUN 141, creatinine 6.7, lactate 5.9, calcium 7.1, magnesium 3.5. -Baseline creatinine is 0.9 on 07/31/2024 -CT abdomen pelvis showed no findings of urinary retention, bladder expansion, no significant prostatomegaly. -EKG showed normal sinus rhythm with first-degree AV block, peaking of Twaves, negative troponins. Plan -Nephrology Dr. Parsons was consulted -Patient got hemodialysis on 08/16, 08/17, 08/18 -Tunneled dialysis catheter was placed -Will continue to monitor renal functions -Renally dose medication and avoid nephrotoxic drugs. 08/19: Renal function consistent with ESRD labs. Will continue with hemodialysis per nephrology recommendations. Hepatitis panel taken, pending PPD. Patient may discharge with home hospice. Will discuss further with nephrology 08/20: Patient to resume hemodialysis today. Has chosen hospice at this time. PPD will be read on 08/21 at 9 AM. Pending outpatient chair time. 08/21: Outpatient HD schedule noted Tuesday//Tuesday #Hypocalcemia, resolved #Hypermagnesemia, resolved #Hyperkalemia, resolved -At the time of admission, calcium 7.1, magnesium 3.5, potassium is 6.7 -Likely due to combined poor oral intake and PILAR -On 08/17, potassium is 5.2, calcium is 7.4, magnesium is 2.8 -As of 08/18, all 3 electrolytes are within normal limits. Plan -Patient received 3 hemodialysis sessions on 08/16, 08/17, 08/18 -Will continue to monitor electrolytes and manage accordingly. #Anion gap metabolic acidosis, resolving #Elevated lactic acidosis Most likely in the setting of underlying kidney failure. Admission lactic acidosis 5.9. Status post 2 L bolus fluids, lactic acid increased to 7.9 Plan -Patient was started on hemodialysis -Will continue to monitor labs #Hx gastric carcinoma with gastric outlet obstruction Diagnosis made 06/2024. 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 Patient has been following with Dr. Guevara on oncology. Currently has port cath placed for chemotherapy. Experiencing decreased appetite, fatigue, dysphagia. Poor oral intake with significant weight loss. -Dr. Guevara consulted ? Megestrol for appetite stimulant ? Zofran 4 mg every 6 hours as needed for nausea ? Pantoprazole 40 mg IV daily ? Mirtazapine for depression ? Refer to speech pathology--started patient on blenderized diet and boost ? Referral to dietitian ? Aspiration precautions 08/19: Case discussed with oncology over the phone, who recommended liver biopsy for further tissue sampling for NGS. At this time patient is considering home hospice. Ultimately if patient wants to continue with full treatment, will obtain biopsy of liver mets as per oncology recommendations. 08/20: Patient has chosen hospice at this time. [employer]ATOR [employer]PLAIN[employer] has sent referral. Pain regimen changed to 10 mg morphine p.o. every 12 hours with 0.5 mg Dilaudid every 2 HR as needed for breakthrough. Monitor for respiratory depression 08/21: No hospice. Will proceed with liver mets biopsy on 08/23/2024. #Hx atrial fibrillation, rate controlled EKG showed mild normal sinus rhythm. -Jack vasc score 2 -continue amiodarone 200 mg daily 08/19: Started metoprolol 50 mg daily due to SBP in 140s. Continue to monitor vital signs and consider lowering dose of metoprolol if BP drops #Hx of possible hypotension, improved Patient was recently started on midodrine [address] Spencer outpatient. Hold midodrine at this time. Will continue to monitor vital signs and possibly reduce metoprolol dose if patient becomes hypotensive #Hx BPH -Continue tamsulosin 0.4 mg PO daily ? Finasteride 5 mg p.o. daily Health maintenance: Dispo: Pending liver mets biopsy on 08/23/2024 DVT prophylaxis: Subcu heparin CODE STATUS: Full code Diet: Blenderized Patient seen and care discussed with my attending Dr. Anna. Damien Miner MD PGY-3 Attending Provider Attestation/Addendum I have discussed and was present for the essential components of the history, physical examination, diagnosis, and treatment plan with the resident. I agree with the patient's care as documented by the resident and amended herein by me. Jaswinder Anna, . Patient seen and evaluated this AM. The patient actually looks and states he feels a bit better today, pain well-controlled. Significant labs however demonstrate an uptrending WBC of 24 today, downtrending bicarb of 19, creatinine slightly down trended to 3.0. Going to restart the patient on antibiotics today Unasyn 3 g every 12 hours for suspected aspiration pneumonia in setting of worsening pneumonia and increased O2 requirements. Patient may need a thoracentesis for possible right pleural effusion however however will reevaluate tomorrow. Nephrology consulted, appreciate recs for ongoing hemodialysis. The patient's liver biopsy is scheduled for when interventional radiology is available to perform the procedure. Will continue to monitor closely, the patient's was at bedside and updated as to our plan. Will continue to monitor this patient closely. Hospice care has been deferred at this time. Although this document has been carefully reviewed, there may still be some phonetic and other typographical errors. These errors are purely grammatical due to imperfections in the software program and should not be construed in any way to compromise the substance of the patient's medical care during this visit.
--- NOTE | 2024-08-21 11:46 | ESPR_ITS ---
Documentation for date of: 08/21/24 Subjective Subjective Interval history: Mr. Da Silva is a 74-year-old male with past medical history of A-fib (rate controlled on amiodarone), BPH, hypertension, hyperlipidemia, insomnia, history of gastric carcinoma with esophageal obstruction, pericardial effusion status post pericardiocentesis who presented to ED on 08/15 after experiencing urinary retention. 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 Underwent pericardiocentesis. During this admission he presented with symptoms of urinary retention have been ongoing since past 12 hours. Patient was confused, history obtained from family at bedside who stated that patient has had poor oral intake with difficulty swallowing due to obstruction. Has had significant weight loss and dysphagia. Patient denies any dysuria but endorses difficulty in maintaining stream. He is compliant with BPH medications. Oncologist Dr. Guevara has been following patient since previous discharge. Patient has Port-A-cath placed in preparation for chemotherapy. He denies any constipation, diarrhea, blood in the stool, abdominal pain, fever, or chills. Endorses weakness. At home, diet consists of soft foods and little pieces. No issues of aspiration. ED course significant for, vitals of blood pressure 108/59, pulse 75, 92% O2 on room air. ED labs revealed WBC 8.1, hemoglobin 11.4, platelets 228, hyponatremic 128, hyperkalemic 6.7, bicarb 17.2, AG 20, Cr 6.7, lactic acid 5.9, corrected calcium 7.0, magnesium 3.5, ALP 710, BNP 512, procalcitonin 0.99. UA negative. EKG showed normal sinus rhythm with first-degree AV block, peaking of Twaves, negative troponins. Chest x-ray bilateral pneumonia more severe in right lung. CT abdomen pelvis showing bibasilar pneumonia, cirrhosis, no significant prostatomegaly. In ED patient was given calcium carbonate x 1, 2 L bolus normal saline, 5 units regular insulinAmp D5W, Rocephin times 1 g x 1, azithromycin 500 mg x 1. Stat repeat CMP no significant improvement of potassium at 6.4, worsening acidosis bicarb 14.8, creatinine 6.5 calcium 7.1, 3 mag 3.5. Repeat lactic acid elevated to 7.9. Patient admitted for managemenet of PILAR in setting of urinary retention/poor oral intake and hyperkalemia. Nephrology consulted for same. Home medications amiodarone 200 mg p.o. daily metoprolol succinate 50 twice daily, Lasix 40 daily, lidocaine patch, citalopram 40 mg p.o. daily, famotidine 20 mg, trazodone 100 mg, mirtazapine 15 mg, finasteride 5 mg, rosuvastatin 40 mg, tamsulosin 0.4 mg Nephrology was consulted for PILAR on CKD, patient has had minimal urine output in setting of acute renal failure and poor oral intake, patient' mentation has worsened compared to admission, more confused, discussed with family agreeable to start dialysis, patient will receive dialysis today after temporary dialysis catheter placement. Discussed with ICU team to assist with placement of temporary catheter. Patient's potassium continues to remain elevated. 08/20/2024 patient currently seen on dialysis. Family considering hospice although wanted to continue with hemodialysis. Patient complaining of fatigue. Decreased p.o. intake. WBC 12.7, hemoglobin 10.4, platelets 97,000. Sodium 135, potassium 4.2, BUN 62, creatinine 3.9 hepatitis panel shows hep C positive. PPD placed. Outpatient dialysis arrangements pending. Still seems to be very sick looking. Has underlying cancer. 08/21/2024 patient currently seen in medical floor. Did receive dialysis yesterday. Next dialysis will be scheduled for . Hep C positive. PPD so far negative. Outpatient dialysis will be arranged. Spoke to family (, daughter) at bedside and they want to pursue continue with chemotherapy and dialysis. Review of Systems Review of Systems Narrative Review of Systems: Patient complaining of extreme fatigue and weakness. Denies any chest pain. Denies any nausea. Decreased appetite. Exam Vital Signs Temp Pulse Resp BP Pulse Ox O2 Del Method O2 Flow Rate 36.1 C 99 23 H 103/59 L 93 L Nasal Cannula 5 08/21/24 08:00 08/21/24 08:14 08/21/24 08:00 08/21/24 08:14 08/21/24 08:00 08/21/24 08:00 08/21/24 08:00 Narrative Exam GENERAL APPEARANCE: Patient very cachectic. Lost weight. Temporal wasting noted. NECK: Neck supple, no JVD or bruit CARDIOVASCULAR: Heart regular, no murmurs LUNGS/CHEST: Few rhonchi noted bilaterally ABDOMEN: Soft, nontender, nondistended. No masses. Normal bowel sounds. Eldridge will be removed today EXTREMITIES: No edema, clubbing or cyanosis. SKIN: Left IJ PermCath. MUSCULOSKELETAL: Significant functional decline/gait imbalance NEUROLOGICAL : Alert and awake Objective Labs 08/22/24 04:35 08/22/24 04:35 Labs: Laboratory Results - last 24 hr 08/21/24 08/21/24 05:08 10:24 WBC 24.3 H D RBC 3.94 L Hgb 11.1 L Hct 34.8 L MCV 88 MCH 28.2 MCHC 31.9 RDW Std Deviation 55.2 H Plt Count 104 L Neut % (Auto) 68 Lymph % (Auto) 7 L [place] % (Auto) 8 Eos % (Auto) 1 Baso % (Auto) 0 Neut # (Auto) 16.6 H Lymph # (Auto) 1.7 [place] # (Auto) 1.9 H Eos # (Auto) 0.2 Baso # (Auto) 0.0 Immature Gran # (Auto) 3.86 H Absolute Nucleated RBC 0.37 H Immature Gran % 16 H Nucleated RBC % 2 H VBG pH 7.27 L VBG pCO2 42 VBG pO2 41 VBG O2 Sat ([place]) 82 L VBG Base Excess -7 L Sodium 133 L Potassium 4.4 Chloride 98 Carbon Dioxide 19.7 L Anion Gap 15 BUN 37 H Creatinine 3.0 H D Estim Creat Clear Calc 20.8 L eGFR 21 L BUN/Creatinine Ratio 12 Glucose 84 Calculated Osmolality 274 L Calcium 8.9 ABG Interpretation ABG results: 08/21/24 10:24 VBG pH 7.27 L VBG pCO2 42 VBG pO2 41 VBG Base Excess -7 L Assessment & Plan Additional Assessment & Plan Additional Plan: Summary: Mr. Da Silva is a 74-year-old male PMH of A-fib rate controlled on amiodarone, BPH, hypertension, hyperlipidemia, insomnia, history of gastric carcinoma with esophageal obstruction, pericardial effusion status post pericardiocentesis who presented to ED today after experiencing urinary retention for more than 12 hours. Denies any abdominal pain, suprapubic pain, dysuria. Endorses decreased oral intake solids and liquids due to dysphagia of underlying gastric carcinoma and esophageal mass. Patient admitted for management of PILAR in setting of urinary retention/poor oral intake and hyperkalemia. Patient had continually decreased urine output, confusion and hyperkalemia, nephrology consulted, started patient on hemodialysis. #Acute renal failure secondary to ATN. Electrolyte imbalance corrected. Suspect prerenal azotemia leading towards ATN with decreased urine output-in the setting of gastric carcinoma and esophageal tumor obstruction. Patient has had poor oral intake including liquids. Significant weight loss in past month. Endorses no urinary output in past 12 hours. Denies any abdominal pain, suprapubic pain, dysuria. At home patient normally eats softened foods in small pieces with Ensure supplement. CT abdomen pelvis showed no findings of urinary retention, bladder expansion, no significant prostatomegaly. Next dialysis scheduled for tomorrow. Outpatient dialysis will be arranged. Spoke to daughter, -they want to continue with chemotherapy And dialysis. #CAP #Hx gastric carcinoma with gastric outlet obstruction #Hx atrial fibrillation, rate controlled #Hx of possible hypotension #Hx BPH Management as per primary team
--- NOTE | 2024-08-21 14:12 | PC.SS ---
Follow up note: SS spoke to physician who states patient does not want hospice. SS offered alternate option of home health services and patient declined this as well. He states he will be doing too much between dialysis and CTC . Patient o/p dialysis schedule will be: //Sat @ 10:15a.m. Dialysis center states if patient is being discharged on Tuesday, then he will start on Tuesday and will need to arrive 30 min earlier. Patient pending biopsy
[2024-08-21] MEDS: MIRTAZAPINE 15 MG TABLET PO (21:52)
[2024-08-22] VITALS (40 sets, daily range): BP systolic 68–155; BP diastolic 46–131; PULSE 62–111; RESP 15–26; TEMP 36.1–37; O2SAT 69–100; BMI 21.9
[2024-08-22] MEDS: ALBUTEROL/IPRATROPIUM (Duoneb) RT SOL 3 ML NEBU INH ×5 (01:49→19:34)
[2024-08-22] MEDS: HYDROmorphone INJ 2 MG/ML VIAL 0.5 MG IVP ×4 (03:43→16:36)
[2024-08-22 05:05] LABS: Basophils % (Auto) 0 % (0-2.5); Eosinophils # (Auto) 0.2 Thou/mm3 (0.0-0.5); Eosinophils % (Auto) 1 % (0-10); Hematocrit 34.2 % (41.0-53.0); Hemoglobin 10.8 g/dL (13.5-16.0); Immature Granulocytes % (Auto) 16 % (0-0); Immature Granulocytes Auto 3.45 Thou/mm3 (0.00-0.00); Lymphocytes # (Auto) 1.1 Thou/mm3 (1.0-4.8); Lymphocytes % (Auto) 5 % (10-50); Mean Corpuscular HGB Conc 31.6 g/dl (31.0-37.0); Mean Corpuscular Hemoglobin 28.1 pg (25.0-35.0); Mean Corpuscular Volume 89 fL (80-100); Monocytes # (Auto) 1.3 Thou/mm3 (0.0-0.8); Monocytes % (Auto) 6 % (0-12); Neutrophils # (Auto) 15.4 Thou/mm3 (1.8-7.7); Neutrophils % (Auto) 72 % (37-80); Nucleated Red Blood Cell # 0.32 Thou/mm3 (0.00-0.00); Nucleated Red Blood Cell % 2 /100 WBC (0); Platelet Count 117 Thou/mm3 (140-440); RDW Standard Deviation 55.5 fL (35.1-43.9); Red Blood Count 3.85 Miln/mm3 (4.50-5.90); White Blood Count 21.4 Thou/mm3 (3.8-10.6)
[2024-08-22 05:39] LABS: Anion Gap 18 (7-16); Blood Urea Nitrogen 61 mg/dL (9-23); Calcium 9.1 mg/dL (8.3-10.6); Carbon Dioxide 20.4 mMol/L (20.0-31.0); Chloride 96 mMol/L (98-107); Glucose 85 mg/dL (74-106); Magnesium 2.1 mg/dL (1.6-2.6); Osmolality,Calculated 284 (275-295); Potassium 5.1 mMol/L (3.4-5.1); Sodium 134 mMol/L (136-145)
[2024-08-22 05:40] LABS: BUN/Creatinine Ratio 16 Ratio (12-20); Creatinine (Component) 3.8 mg/dL (0.6-1.3); Estimated Creatinine Clearance 16.4 mL/min (>60); eGFR 16 See Note
[2024-08-22] MEDS: ALBUMIN HUMAN 25% IVPB 25 GM/100 ML BTL IV ×2 (08:50→12:54)
--- NOTE | 2024-08-22 08:51 | PC.NURSE ---
BP low albumin 25% given IVP.
[2024-08-22] MEDS: MIDODRINE 5 MG TABLET PO ×2 (09:03→21:23)
--- NOTE | 2024-08-22 09:17 | PC.NURSE ---
BP still low, UF off, 100 cc bolus of NS given.
--- NOTE | 2024-08-22 10:14 | PD.RESPRO ---
Documentation for date of: 08/22/24 Subjective Subjective Interval history: Patient seen and examined at bedside after hemodialysis. O2 requirements increased to 7 L oxy mask and bedside ultrasound revealed significant pleural effusion, as noted on CXR from 08/21/2024. Risk and benefits were discussed with patient and his in regards to thoracentesis. Consent form was signed and patient underwent bedside thoracentesis under backend developer supervision, without any complications (see separate procedure note). Pleural fluid was sent for analysis, including cytology. Of note, patient was hypotensive with significant improvement (MAP >70) after being placed in Trendelenburg position and 25 g of albumin. Will hold antihypertensives at this time and consider resuming home midodrine if MAP falls <65. Patient with no acute complaints at this time. Labs reviewed. Leukocytosis improving. CHEM panel consistent with ESRD labs. Will plan for CT-guided biopsy of liver mets on 08/23/2024, with patient n.p.o. after midnight. PT/INR ordered for a.m. labs. Patient's and daughter were at bedside, and all questions were answered to their satisfaction. Exam Vital Signs Temp Pulse Resp BP Pulse Ox O2 Del Method O2 Flow Rate 98.4 F 110 H 25 H 124/57 L 96 Oxy Mask 9 08/22/24 08:01 08/22/24 10:08 08/22/24 10:08 08/22/24 10:00 08/22/24 10:08 08/22/24 07:50 08/22/24 10:08 Narrative Exam Gen: AAOx3, elderly male, appears chronically ill, cachectic, pleasant to speak with HEENT: PERRLA, EOMI, MM dry, left TDC noted without erythema, bleeding or discharge CVS: normal S1, S2. RRR. No MRG Resp: Mild improvement in right lower base post thoracentesis Abd: soft, non-tender, non-distended. BS+ in all 4 quadrants MSK: Good ROM in BUE & BLE. 2+ pitting edema in BLE. Senile purpura Neuro: CN II-XII grossly intact. No focal deficits appreciated Objective Labs 08/22/24 04:35 08/22/24 04:35 Labs: Laboratory Results - last 24 hr 08/21/24 08/22/24 10:24 04:35 WBC 21.4 H RBC 3.85 L Hgb 10.8 L Hct 34.2 L MCV 89 MCH 28.1 MCHC 31.6 RDW Std Deviation 55.5 H Plt Count 117 L Neut % (Auto) 72 Lymph % (Auto) 5 L Owen % (Auto) 6 Eos % (Auto) 1 Baso % (Auto) 0 Neut # (Auto) 15.4 H Lymph # (Auto) 1.1 Owen # (Auto) 1.3 H Eos # (Auto) 0.2 Baso # (Auto) 0.0 Immature Gran # (Auto) 3.45 H Absolute Nucleated RBC 0.32 H Immature Gran % 16 H Nucleated RBC % 2 H VBG pH 7.27 L VBG pCO2 42 VBG pO2 41 VBG O2 Sat (Laury) 82 L VBG Base Excess -7 L Sodium 134 L Potassium 5.1 D Chloride 96 L Carbon Dioxide 20.4 Anion Gap 18 H BUN 61 H Creatinine 3.8 H D Estim Creat Clear Calc 16.4 L eGFR 16 L BUN/Creatinine Ratio 16 Glucose 85 Calculated Osmolality 284 Calcium 9.1 Magnesium 2.1 ABG Interpretation ABG results: 08/21/24 10:24 VBG pH 7.27 L VBG pCO2 42 VBG pO2 41 VBG Base Excess -7 L Quality Measures Quality Measures VTE prophylaxis Advance care planning discussed with:: patient and spouse Assessment & Plan Assessment Current Active Medications: Generic Name Dose Route Start Last Admin Trade Name Freq PRN Reason Stop Dose Admin Acetaminophen 650 mg 08/16/24 08:35 08/19/24 22:19 Acetaminophen 325 Mg Tablet PO 09/14/24 13:53 650 mg Q6H PRN Administration Fever >100.3 or pain (1-3) Albuterol/Ipratropium 3 ml 08/18/24 07:00 08/22/24 06:21 Albuterol/Ipratropium (Duoneb) Rt Zamzam 3 Ml Nebu INH 09/17/24 06:59 3 ml Q6HRRT JADE Administration Albuterol/Ipratropium 3 ml 08/18/24 01:57 08/22/24 10:06 Albuterol/Ipratropium (Duoneb) Rt Zamzam 3 Ml Nebu INH 09/17/24 02:59 3 ml Q4HRRT PRN Administration Wheezing Amiodarone HCl 200 mg 08/15/24 15:30 08/21/24 08:14 Amiodarone Hcl 200 Mg Tablet PO 09/14/24 15:29 Not Given DAILY JADE Calcium Carbonate 600 mg 08/16/24 09:00 08/21/24 08:11 Calcium Carbonate 600 Mg Tablet PO 09/15/24 08:59 600 mg QDAY JADE Administration Docusate Sodium 100 mg 08/15/24 15:13 08/18/24 03:20 Docusate Sod Liqd 100 Mg/10 Ml Udc PO 09/14/24 20:59 100 mg BID PRN Administration constipation Protocol Heparin Sodium (Porcine) 5,000 unit 08/15/24 21:00 08/21/24 22:29 Heparin Sod Inj 5000 Unit/Ml Vial SC 08/29/24 20:59 Not Given Q12HR JADE Heparin Sodium (Porcine) 3,500 unit 08/18/24 10:55 08/20/24 15:18 Heparin Sod Inj 1000 Unit/Ml Vial 10 Ml INDWELLCAT 3,500 unit PRN PRN Administration DIALYSIS Hydromorphone HCl 0.5 mg 08/19/24 16:25 08/22/24 08:37 Hydromorphone Inj 2 Mg/Ml Vial IVP 08/24/24 17:59 0.5 mg Q2HR PRN Administration BREAKTHROUGH PAIN (SEVERE) Albumin Human 25 gm in 100 mls @ 100 mls/hr 08/16/24 11:44 08/22/24 08:50 Albuminar-25 Ivpb IV 100 mls/hr PRN PRN Administration DIALYSIS Ampicillin Sodium/Sulbactam 100 mls @ 200 mls/hr 08/21/24 08:15 08/21/24 22:26 Sodium 3 gm/ Sodium Chloride IV 08/28/24 08:14 Infused Q12H [facility] Infusion Lidocaine 1 patch 08/17/24 11:30 08/21/24 08:16 Lidocaine 5% 1 Patch TOP 09/16/24 11:29 Not Given DAILY JADE Megestrol Acetate 400 mg 08/15/24 15:30 08/21/24 08:13 Megestrol Acet Susp 400 Mg/10 Ml Udc PO 09/14/24 15:29 400 mg DAILY JADE Administration Metoprolol Succinate 50 mg 08/19/24 09:00 08/21/24 08:13 Metoprolol Succinate Xl 25 Mg Tabcr PO 09/18/24 08:59 Not Given QDAY JADE Midodrine 5 mg 08/19/24 16:27 08/22/24 09:03 Midodrine 5 Mg Tablet PO 09/14/24 20:59 5 mg BID PRN Administration SBP < 90 Mirtazapine 15 mg 08/19/24 21:00 08/21/24 21:52 Mirtazapine 15 Mg Tablet PO 09/18/24 20:59 15 mg HS JADE Administration Morphine Sulfate 10 mg 08/19/24 21:00 08/21/24 21:52 Morphine Sulf Liqd 10 Mg/5 Ml Udc PO 08/24/24 20:59 10 mg Q12HR JADE Administration Ondansetron HCl 4 mg 08/15/24 14:57 08/18/24 09:44 Ondansetron Inj 2 Mg/Ml Inj 2 Ml IV 09/14/24 14:56 4 mg Q6HR PRN Administration NAUSEA OR VOMITING Protocol Pantoprazole Sodium 40 mg 08/16/24 09:00 08/21/24 08:13 Pantoprazole Inj 40 Mg Vial IVP 09/15/24 08:59 40 mg QDAY JADE Administration Plan Patient is a 74-year-old male PMH of A-fib rate controlled on amiodarone, BPH, hypertension, hyperlipidemia, insomnia, history of gastric carcinoma with esophageal obstruction, pericardial effusion status post pericardiocentesis who presented to ED today after experiencing urinary retention for more than 12 hours. Denies any abdominal pain, suprapubic pain, dysuria. Endorses decreased oral intake solids and liquids due to dysphagia of underlying gastric carcinoma and esophageal mass. Patient admitted for management of PILAR in setting of urinary retention/poor oral intake and hyperkalemia. #Goals of care Had a short goals of care conversation with patient and his , with hospitalist team and RN present. Discussed the need for liver biopsy for further tissue sampling to send for next generation sequencing, as recommended by oncologist. At this time patient is considering home hospice for discharge and to forego further treatment. He plans to discuss this further with his and family. Patient stated at this time he would like to be made DNR/DNI. POLST form will be signed, with copy placed in patient's chart, and original given to patient's . 08/20: CUSTOMER SUPPORT AGENT spoke with family and patient ultimately decided on choosing hospice. They wished to discuss decision with patient's other daughter, however did advise CUSTOMER SUPPORT AGENT to consult hospice agency. Patient will likely go home on hospice for gastric adenocarcinoma, with hospice agency accommodating hemodialysis. 08/21: Patient with no longer like to be discharged on home hospice. Will proceed with full treatment including chemotherapy. Will obtain liver mets biopsy on , 08/23/2024 once IR is back. #CAP CT abdomen pelvis showed significant bilateral pneumonia with chest x-ray showing more prominence in right lung. Patient is denying any coughing or shortness of breath, fever or chills. Denies any close sick contacts. 08/21: Patient completed Rocephin, doxycycline IV antibiotic course. Noted that his white count was began to increase and diminished breath sounds in right base, therefore CXR was ordered which showed: Significant right lung pneumonia => started Unasyn #Pleural effusion, s/p thoracentesis As seen on CXR => may be malignant effusion Patient was evaluated after hemodialysis on 08/22/2024 with bedside ultrasound. Risk/benefits of thoracentesis was discussed and consent was obtained. Procedure was done under backend developer supervision, with pleural fluid sent for further analysis and cytology. Patient tolerated the procedure well (see separate procedure note) Follow-up pleural fluid analysis for lights criteria; cytology #Hypotension, resolved MAP <65 noted approximate 30-45 minutes postprocedure. Patient was evaluated at bedside, noted to be asymptomatic. He was placed in Trendelenburg position and 25 g albumin was given. Repeat BP with improvement, MAP >70 Will hold antihypertensives at this time and continue to monitor blood pressure Patient is on midodrine is as needed for SBP <90 #Acute metabolic encephalopathy, resolved #Acute renal failure, likely prerenal in the setting of poor oral intake due to gastric carcinoma, resolving On initial presentation, patient was noted to be altered and with decreased urine output. Labs consistent with PILAR (baseline creatinine 0.9), likely prerenal in the setting of poor oral intake due to gastric carcinoma. He was started on hemodialysis and antibiotics, with improvement of mentation Labs at the time of admission showed sodium 127, potassium 6.7, chloride 90, bicarb 17.2, anion gap 20, BUN 141, creatinine 6.7, lactate 5.9, calcium 7.1, magnesium 3.5. Nephrology Dr. Parsons was consulted. Patient underwent TDC placement and hepatitis panel, PPD were taken => on discharge, patient will undergo hemodialysis Tuesday//Tuesday Renally dose medication and avoid nephrotoxic drugs. #Hypocalcemia, resolved #Hypermagnesemia, resolved #Hyperkalemia, resolved -At the time of admission, calcium 7.1, magnesium 3.5, potassium is 6.7 -Likely due to combined poor oral intake and PILAR -On 08/17, potassium is 5.2, calcium is 7.4, magnesium is 2.8 -As of 08/18, all 3 electrolytes are within normal limits. Plan -Patient received 3 hemodialysis sessions on 08/16, 08/17, 08/18 -Will continue to monitor electrolytes and manage accordingly. #Anion gap metabolic acidosis, resolving #Elevated lactic acidosis Most likely in the setting of underlying kidney failure. Admission lactic acidosis 5.9. Status post 2 L bolus fluids, lactic acid increased to 7.9 Plan -Patient was started on hemodialysis -Will continue to monitor labs #Hx gastric carcinoma with gastric outlet obstruction Diagnosis made 06/2024. 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 Patient has been following with Dr. Guevara on oncology. Currently has port cath placed for chemotherapy. Experiencing decreased appetite, fatigue, dysphagia. Poor oral intake with significant weight loss. -Dr. Guevara consulted ? Megestrol for appetite stimulant ? Zofran 4 mg every 6 hours as needed for nausea ? Pantoprazole 40 mg IV daily ? Mirtazapine for depression ? Refer to speech pathology--started patient on blenderized diet and boost ? Referral to dietitian ? Aspiration precautions Pain regimen changed to 10 mg morphine p.o. every 12 hours with 0.5 mg Dilaudid every 2 hours as needed for breakthrough pain. Monitor for respiratory depression Patient and family decided against PEG tube at this time. POLST form was signed with patient requesting DNR/DNI and no artificial feedings. Case was discussed with oncology, who recommended if patient does not go on hospice, will need a biopsy of liver mets for further tissue sampling for [employer] sequencing. CT-guided liver biopsy scheduled for 08/23/2024. Patient will be made n.p.o. at midnight, coags ordered for a.m. labs. #Hx atrial fibrillation, rate controlled EKG showed mild normal sinus rhythm. -Jack vasc score 2 -continue amiodarone 200 mg daily Started metoprolol 50 mg daily due to SBP in 140s. Continue to monitor vital signs and consider lowering dose of metoprolol if BP drops Below: Slightly manage renal function, to limit crying for UTI and med follow-up checking Reason need to take tomorrow (always so superficial femoral/iliac sure everything she called the radiologist there is a hole she is butlikeshesaw she #Hx BPH -Continue tamsulosin 0.4 mg PO daily ? Finasteride 5 mg p.o. daily Health maintenance: Dispo: Pending liver mets biopsy on 08/23/2024; on unasyn for pneumonia; pending cytology s/p thoracentesis DVT prophylaxis: Subcu heparin CODE STATUS: Full code Diet: Blenderized Patient seen and care discussed with my attending Dr. Anna. Damien Miner MD PGY-3 Attending Provider Attestation/Addendum I have discussed and was present for the essential components of the history, physical examination, diagnosis, and treatment plan with the resident. I agree with the patient's care as documented by the resident and amended herein by me. Jaswinder Anna DO. Although this document has been carefully reviewed, there may still be some phonetic and other typographical errors. These errors are purely grammatical due to imperfections in the software program and should not be construed in any way to compromise the substance of the patient's medical care during this visit.
[2024-08-22] MEDS: HEPARIN SOD INJ 1000 UNIT/ML VIAL 10 ML 3500 UNIT INDWELLCAT (10:43)
[2024-08-22] MEDS: CALCIUM CARBONATE 600 MG TABLET PO (11:22)
[2024-08-22] MEDS: AMPICILLIN/SULBAC INJ 3 GM in SODIUM CHLORIDE 0.9% (P) 100 ML IV ×2 (11:22→20:19)
[2024-08-22] MEDS: MEGESTROL ACET SUSP 400 MG/10 ML UDC PO (11:28)
[2024-08-22] MEDS: PANTOPRAZOLE INJ 40 MG VIAL IVP (11:32)
--- NOTE | 2024-08-22 12:00 | ESCONSULT_ITS ---
HPI Pulmonology Consult Data of Consult Requesting Physician: Jeffrey Anna DO Primary Care Provider: Phuc Sotelo MD Consult Narrative History of present illness: Patient is a 74-year-old with past medical history significant for atrial fibrillation, BPH, hypertension, hyperlipidemia and gastric carcinoma with esophageal obstruction and pericardial involvement who presented with urinary retention. Patient with significant altered mentation requiring emergent hemodialysis for uremia. Found to also have significant bilateral pneumonia being treated with antibiotics. Patient's mentation has continued to improve with serial dialysis treatments however has developed worsening respiratory failure with increased oxygen demand. Chest x-ray now shows increasing right- sided pleural effusion in the lung with predominantly infection previously. Medicine team requesting assistance with ongoing management of respiratory failure as well as pleural effusion. cc:: cc: Jeffrey Anna DO Review of Systems Review of Systems Narrative Review of Systems: Pertinent review of systems was completed with significant findings included in HPI above Past Medical History Past Medical History Comments PMH COMMENT: Past medical and surgical history with significant findings included in HPI above. Patient is an active smoker without significant history of illicit substance abuse or alcohol. He lives with his . Patient was previously on hospice and transition to aggressive treatment during this hospitalization. Meds Home Medications and Allergies Home Medications ?Medication ?Instructions ?Recorded ?Confirmed ?Type famotidine 20 mg tablet (Pepcid) 20 mg PO HS #0 tabs 09/30/15 08/18/24 History finasteride 5 mg tablet 5 mg PO HS 07/06/24 08/18/24 History mirtazapine 15 mg tablet 15 mg PO HS 07/06/24 08/18/24 History rosuvastatin 40 mg tablet 40 mg PO HS 07/06/24 08/18/24 History tamsulosin 0.4 mg capsule 0.4 mg PO QDAY 07/06/24 08/18/24 History metoprolol succinate 100 mg 100 mg PO QDAY 08/01/24 08/18/24 History tablet,extended release 24 hr zolpidem 10 mg tablet 10 mg PO HS 08/01/24 08/18/24 History midodrine 5 mg tablet 5 mg PO BID 08/18/24 08/18/24 History oxycodone 5 mg tablet 5 mg PO [id number] PRN pain 08/18/24 08/18/24 History Allergies Allergy/AdvReac Type Severity Reaction Status Date / Time No Known Allergies Allergy Verified 07/12/24 20:13 Exam Vital Signs Temp Pulse Resp BP Pulse Ox O2 Del Method O2 Flow Rate 97.5 F 107 H 21 H 93/60 98 Nasal Cannula 6 08/23/24 03:47 08/23/24 06:46 08/23/24 06:46 08/23/24 05:36 08/23/24 06:46 08/23/24 03:47 08/23/24 06:46 Narrative Exam GEN: Increased work of breathing, able to speak in 2-3 word sentences, wearing oxy mask NECK: No significant JVD, seen immediately post hemodialysis treatment PULM: Absent breath sounds over the right hemithorax, normal on the left adventitious sounds CVS: S1/S2 present, regular rhythm, tachycardic ABD: No distention, bowel sounds present, nontender to palpation EXT: All limbs intact, no cyanosis or clubbing NEURO: Nonfocal on gross exam though diffusely weak PSYCH: Appropriate mood and affect, noted distress as per above Physical Exam Completion Physical Exam Complete?: Yes Results - Stage Director Labs 08/23/24 05:12 08/23/24 05:12 Labs: Short CBC 08/23/24 Range/Units 05:12 WBC 16.6 H (3.8-10.6) Thou/mm3 Hgb 9.4 L (13.5-16.0) g/dL Hct 29.8 L (41.0-53.0) % Plt Count 91 L D (140-440) Thou/mm3 BMP 08/23/24 05:12 Sodium 136 Potassium 4.5 D Chloride 99 Carbon Dioxide 21.6 BUN 48 H Creatinine 3.2 H D Glucose 79 Calcium 9.7 ABG Interpretation ABG results: 08/21/24 10:24 VBG pH 7.27 L VBG pCO2 42 VBG pO2 41 VBG Base Excess -7 L Assessment & Plan Additional Plan Additional Plan: Right pleural effusion Acute hypoxic respiratory failure Patient with significant history of malignancy and acute infection Unilateral predominant pleural effusion confirmed by ultrasound at bedside with large volume Patient amenable to thoracentesis, this was discussed by resident team with the patient's as well as him, will proceed with procedure to exclude presence of malignancy or infection as etiologies Send fluid sample for chemistry analysis, cell count/differential, cultures and cytology to exclude presence of malignant cells Continue hemodialysis for volume maintenance as this is also a predisposing factor for recurrent effusion Wean oxygen as tolerated after recruitment of the underlying lung and adequate treatment course for pneumonia I remain available for any questions should they arise, thank you for allowing me to participate in the care of this patient Provider Notation Provider Notation: Although this document has been carefully reviewed, there may still be some phonetic and other typographical errors. These errors are purely grammatical due to imperfections in the software program and should not be construed in any way to compromise the substance of the patient's medical care during this visit. Thank you for the opportunity and privilege in assisting you with this patient's care and management.
--- NOTE | 2024-08-22 12:06 | XR_ITS ---
Examination: AP chest single view Technique one AP portable upright chest single view Exam date and time: August 22, 2024 12:19 PM Comparison August 21, 2024 Indications: Post right thoracentesis Findings: Prominent CHF Enlarged cardiac contour with vascular congestion and perihilar edema Superimposed bilateral pneumonia, significant in the right lung Pleural fluid capping right apex of the lung Right internal jugular Port-A-Cath tip and left internal jugular dialysis catheter tip both in the SVC satisfactory position Impression: Prominent CHF Bilateral pneumonia Pleural fluid, mild, at the apex of the right lung
--- NOTE | 2024-08-22 12:15 | ESOP_ITS ---
<Statement entered by Juan Richardson MD - 08/23/24 08:42> Attending Attestation: Bedside ultrasound was used to identify a safe location for thoracentesis along the posterior aspect. Patient underwent thoracentesis this by the above resident under my direct supervision. Patient tolerated procedure well with no immediate complications and minimal blood loss. Follow- up chest x-ray shows no postprocedural pneumothorax with significant improvement/recruitment of the underlying lung. Patient with hypotension as expected due to significant volume removal both from the thorax and after hemodialysis. Albumin was administered appropriately along with holding of his oral antihypertensive medications. I remain available for any further intervention is required. Procedures Procedure Date / Time 08/22/24 1215 Procedure Narrative Procedure Narrative: A time out was performed and the chest x-ray and US were reviewed, the appropriate side was confirmed and marked. My hands were washed immediately prior to the procedure. I wore a surgical cap, mask with protective eyewear, sterile gown and sterile gloves throughout the procedure. The patient was prepped and draped in a sterile manner using chlorhexidine scrub after the appropriate level was percussed and confirmed by ultrasound. 1% lidocaine was used to anesthesize the skin, subcutaneous tissue, superior aspect of the rib periosteum and parietal pleura. A finder needle was then introduced over the superior aspect of the rib to locate the pleural fluid; yellow/sanchez colored fluid was aspirated at a depth of approximately 2 cm. A 10-blade scalpel was u sed to eliseo the skin at the insertion site. The [id number] needle was then introduced through the skin incision into the pleural space using negative aspiration pressure and the red colormetric indicator to confirm appropriate positioning of the needle. The thoracentesis catheter was then threaded without difficulty. 2.0L of yellow/sanchez colored fluid was removed without difficulty. The catheter was then removed. No immediate complications were noted during the procedure. A post-procedure chest x-ray is pending at the time of this note. The fluid will be sent for studies. Estimated blood loss is 1 cc. Patient case was discussed with attending, Dr. Juan Richardson MD and senior residents Dr. Miner and Dr. Horn. Blessing Robles DO PGYI Thoracentesis Indication(s): symptomatic Pleural Effusion Informed consent obtained from: surrogate Time out done, and the following verified: correct patient, side and site, procedure, patient position and implants and/or equipment Ultrasound used: Yes Procedure location: rt. post pleural space Amount pleural fluid removed (ml): 2,000 EBL(ml): 1
--- NOTE | 2024-08-22 12:19 | PC.NURSE ---
Pulled morning medications after dialysis, team at beside to perform procedure at bedside, due to lots of fluid pulled off ordered to hold metoprolol, amio, and morphine liquid from morning meds and wait after rechecking bp. Also ordered to hold heparin.
[2024-08-22 13:01] LABS: Amylase,Pleural Fluid 43 IU/L; Glucose,Pleural Fluid 61 mg/dL; LDH,Pleural Fluid 387 IU/L; Protein Total,Pleural Fluid 2.3 g/dL
[2024-08-22 13:06] LABS: Pleural Fluid WBC 108 /cmm
[2024-08-22 13:33] LABS: Pleural Fluid Appearance Hazy; Pleural Fluid Color Yellow
[2024-08-22 13:51] LABS: LDH (Lactate Dehydrogenase) 549 U/L (120-246)
--- NOTE | 2024-08-22 14:53 | PC.SS ---
Per Dr. Anna, patient had a thoracentesis, pending CT and liver biopsy.
[2024-08-22 15:28] LABS: Pleural Fluid RBC 90 /cmm
--- NOTE | 2024-08-22 16:30 | PC.NURSE ---
Dr. Miner notified of BP difference in both arms and slight edema in left arm. BP on right arm is 89/87 and left arm 142/64.
--- NOTE | 2024-08-22 16:40 | XR_ITS ---
Examination: Venous duplex upper extremity sonogram, bilateral. Date and time of exam: August 22, 2024 1652 hrs. Indications: Bilateral arm swelling and pain today, history Port-A-Cath and dialysis catheters Technique: Multiple sonographic images of the deep venous system have been obtained. B-mode/2-D grayscale imaging of vascular structures and Doppler spectral analysis (waveforms) and color performed Both legs are examined. Findings: Deep venous systems do not demonstrate abnormal echogenicity. Limited visualization left subclavian catheter All visualized deep veins exhibit compressibility. All visualized deep veins exhibit augmentation. Superficial left cephalic vein is not compressible blood flow is seen Impression: No acute DVT is demonstrated
--- NOTE | 2024-08-22 17:26 | ESPR_ITS ---
Documentation for date of: 08/22/24 Subjective Subjective Interval history: Mr. Da Silva is a 74-year-old male with past medical history of A-fib (rate controlled on amiodarone), BPH, hypertension, hyperlipidemia, insomnia, history of gastric carcinoma with esophageal obstruction, pericardial effusion status post pericardiocentesis who presented to ED on 08/15 after experiencing urinary retention. 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 Underwent pericardiocentesis. During this admission he presented with symptoms of urinary retention have been ongoing since past 12 hours. Patient was confused, history obtained from family at bedside who stated that patient has had poor oral intake with difficulty swallowing due to obstruction. Has had significant weight loss and dysphagia. Patient denies any dysuria but endorses difficulty in maintaining stream. He is compliant with BPH medications. Oncologist Dr. Guevara has been following patient since previous discharge. Patient has Port-A-cath placed in preparation for chemotherapy. He denies any constipation, diarrhea, blood in the stool, abdominal pain, fever, or chills. Endorses weakness. At home, diet consists of soft foods and little pieces. No issues of aspiration. ED course significant for, vitals of blood pressure 108/59, pulse 75, 92% O2 on room air. ED labs revealed WBC 8.1, hemoglobin 11.4, platelets 228, hyponatremic 128, hyperkalemic 6.7, bicarb 17.2, AG 20, Cr 6.7, lactic acid 5.9, corrected calcium 7.0, magnesium 3.5, ALP 710, BNP 512, procalcitonin 0.99. UA negative. EKG showed normal sinus rhythm with first-degree AV block, peaking of Twaves, negative troponins. Chest x-ray bilateral pneumonia more severe in right lung. CT abdomen pelvis showing bibasilar pneumonia, cirrhosis, no significant prostatomegaly. In ED patient was given calcium carbonate x 1, 2 L bolus normal saline, 5 units regular insulinAmp D5W, Rocephin times 1 g x 1, azithromycin 500 mg x 1. Stat repeat CMP no significant improvement of potassium at 6.4, worsening acidosis bicarb 14.8, creatinine 6.5 calcium 7.1, 3 mag 3.5. Repeat lactic acid elevated to 7.9. Patient admitted for managemenet of PILAR in setting of urinary retention/poor oral intake and hyperkalemia. Nephrology consulted for same. Home medications amiodarone 200 mg p.o. daily metoprolol succinate 50 twice daily, Lasix 40 daily, lidocaine patch, citalopram 40 mg p.o. daily, famotidine 20 mg, trazodone 100 mg, mirtazapine 15 mg, finasteride 5 mg, rosuvastatin 40 mg, tamsulosin 0.4 mg Nephrology was consulted for PILAR on CKD, patient has had minimal urine output in setting of acute renal failure and poor oral intake, patient' mentation has worsened compared to admission, more confused, discussed with family agreeable to start dialysis, patient will receive dialysis today after temporary dialysis catheter placement. Discussed with ICU team to assist with placement of temporary catheter. Patient's potassium continues to remain elevated. 08/20/2024 patient currently seen on dialysis. Family considering hospice although wanted to continue with hemodialysis. Patient complaining of fatigue. Decreased p.o. intake. WBC 12.7, hemoglobin 10.4, platelets 97,000. Sodium 135, potassium 4.2, BUN 62, creatinine 3.9 hepatitis panel shows hep C positive. PPD placed. Outpatient dialysis arrangements pending. Still seems to be very sick looking. Has underlying cancer. 08/21/2024 patient currently seen in medical floor. Did receive dialysis yesterday. Next dialysis will be scheduled for . Hep C positive. PPD so far negative. Outpatient dialysis will be arranged. Spoke to family (, daughter) at bedside and they want to pursue continue with chemotherapy and dialysis. 08/22/2023 patient currently seen on dialysis. Feeling tired. Will be going for liver biopsy tomorrow. CT abdomen with contrast ordered. Review of Systems Review of Systems Narrative Review of Systems: Patient complaining of extreme fatigue and weakness. Denies any chest pain. Denies any nausea. Decreased appetite. Exam Vital Signs Temp Pulse Resp BP Pulse Ox O2 Del Method O2 Flow Rate 36.2 C 105 H 21 H 90/66 99 Oxy Mask 7 08/22/24 12:00 08/22/24 16:00 08/22/24 12:25 08/22/24 13:55 08/22/24 12:25 08/22/24 12:00 08/22/24 12:25 Narrative Exam GENERAL APPEARANCE: Patient very cachectic. Lost weight. Temporal wasting noted. On dialysis NECK: Neck supple, no JVD or bruit CARDIOVASCULAR: Heart regular, no murmurs LUNGS/CHEST: Few rhonchi noted bilaterally ABDOMEN: Soft, nontender, nondistended. No masses. Normal bowel sounds. EXTREMITIES: No edema, clubbing or cyanosis. SKIN: Left IJ PermCath. MUSCULOSKELETAL: Significant functional decline/gait imbalance NEUROLOGICAL : Alert and awake Objective Labs 08/24/24 04:31 08/24/24 04:31 Labs: Laboratory Results - last 24 hr 08/22/24 08/22/24 08/22/24 04:30 04:35 12:00 WBC 21.4 H RBC 3.85 L Hgb 10.8 L Hct 34.2 L MCV 89 MCH 28.1 MCHC 31.6 RDW Std Deviation 55.5 H Plt Count 117 L Neut % (Auto) 72 Lymph % (Auto) 5 L [place] % (Auto) 6 Eos % (Auto) 1 Baso % (Auto) 0 Neut # (Auto) 15.4 H Lymph # (Auto) 1.1 [place] # (Auto) 1.3 H Eos # (Auto) 0.2 Baso # (Auto) 0.0 Immature Gran # (Auto) 3.45 H Absolute Nucleated RBC 0.32 H Immature Gran % 16 H Nucleated RBC % 2 H Sodium 134 L Potassium 5.1 D Chloride 96 L Carbon Dioxide 20.4 Anion Gap 18 H BUN 61 H Creatinine 3.8 H D Estim Creat Clear Calc 16.4 L eGFR 16 L BUN/Creatinine Ratio 16 Glucose 85 Calculated Osmolality 284 Calcium 9.1 Magnesium 2.1 Lactate Dehydrogenase 549 H Pleural Color Yellow Pleural Appearance Hazy Pleural WBC 108 Pleural RBC 90 Pleural Polynuclear WBC 25.0 Pleural Mononuclear WBC 75.0 Pleural Total Protein 2.3 Pleural LDH 387 Pleural Glucose 61 Pleural Amylase 43 ABG Interpretation ABG results: 08/21/24 10:24 VBG pH 7.27 L VBG pCO2 42 VBG pO2 41 VBG Base Excess -7 L Assessment & Plan Additional Assessment & Plan Additional Plan: Summary: Mr. Da Silva is a 74-year-old male PMH of A-fib rate controlled on amiodarone, BPH, hypertension, hyperlipidemia, insomnia, history of gastric carcinoma with esophageal obstruction, pericardial effusion status post pericardiocentesis who presented to ED today after experiencing urinary retention for more than 12 hours. Denies any abdominal pain, suprapubic pain, dysuria. Endorses decreased oral intake solids and liquids due to dysphagia of underlying gastric carcinoma and esophageal mass. Patient admitted for management of PILAR in setting of urinary retention/poor oral intake and hyperkalemia. Patient had continually decreased urine output, confusion and hyperkalemia, nephrology consulted, started patient on hemodialysis. #Acute renal failure secondary to ATN. Electrolyte imbalance corrected. Suspect prerenal azotemia leading towards ATN with decreased urine output-in the setting of gastric carcinoma and esophageal tumor obstruction. Patient has had poor oral intake including liquids. Significant weight loss in past month. Endorses no urinary output in past 12 hours. Denies any abdominal pain, suprapubic pain, dysuria. At home patient normally eats softened foods in small pieces with Ensure supplement. CT abdomen pelvis showed no findings of urinary retention, bladder expansion, no significant prostatomegaly. Patient currently seen on dialysis. Tolerating dialysis without any problems. Hemodialysis for 3 hours, 2K, ultrafiltration 0 L, Epogen 6000, no heparin ordered. Plan of care discussed with the dialysis nurse. Please see dialysis flowsheet for further details. Outpatient dialysis will be arranged. Spoke to daughter, -they want to continue with chemotherapy And dialysis. #CAP #Hx gastric carcinoma with gastric outlet obstruction Liver biopsy, CT scan with contrast ordered #Hx atrial fibrillation, rate controlled #Hx of possible hypotension #Hx BPH Management as per primary team
--- NOTE | 2024-08-22 18:14 | PC.NURSE ---
Family stated that patient missing right hearing, patient does not remember if had both hearing aides when woke up this morning, patient went to dialysis early in the morning at 0755. Tried to call dialysis to see if it was lost upstairs but already went home for the day. Patient also had bedside procedure thoracentesis. Family noticed around 1600 that it was missing. [employer] and family searched room, undid bedsheets and searched through dirty linen but could not find hearing aide.
--- NOTE | 2024-08-22 20:10 | PC.NURSE ---
MD Bonilla notified that there is still a difference in pt's BP on both arms. The Right arm is reading 71/49 and the Left arm is reading 124/54. MD Bonilla said day team told her about this and she is already aware. said to continue monitoring and no new orders given
[2024-08-22] MEDS: MIRTAZAPINE 15 MG TABLET PO (20:19)
--- NOTE | 2024-08-22 22:59 | PC.NURSE ---
MD Bonilla notified that pt is in a lot of pain and requesting pain medication but his BP has been low the entire day. His current BP taken now is 90/60. said she will review his meds.
[2024-08-22] MEDS: oxyCODONE HCL 5 MG IR TAB PO (23:09)
[2024-08-23] VITALS (20 sets, daily range): BP systolic 81–143; BP diastolic 56–70; PULSE 90–110; RESP 10–88; TEMP 36.1–36.6; O2SAT 93–100
[2024-08-23] MEDS: ALBUTEROL/IPRATROPIUM (Duoneb) RT SOL 3 ML NEBU INH ×3 (01:29→18:12)
--- NOTE | 2024-08-23 05:32 | PC.NURSE ---
MD Bonilla said pt is ok to have PO meds even if pt is NPO
[2024-08-23] MEDS: oxyCODONE HCL 5 MG IR TAB PO ×3 (05:44→22:56)
[2024-08-23 06:05] LABS: Basophils # (Auto) 0.1 Thou/mm3 (0.0-0.2); Basophils % (Auto) 0 % (0-2.5); Eosinophils # (Auto) 0.1 Thou/mm3 (0.0-0.5); Eosinophils % (Auto) 1 % (0-10); Hematocrit 29.8 % (41.0-53.0); Hemoglobin 9.4 g/dL (13.5-16.0); Immature Granulocytes % (Auto) 12 % (0-0); Immature Granulocytes Auto 1.92 Thou/mm3 (0.00-0.00); Lymphocytes % (Auto) 6 % (10-50); Mean Corpuscular HGB Conc 31.5 g/dl (31.0-37.0); Mean Corpuscular Hemoglobin 28.3 pg (25.0-35.0); Mean Corpuscular Volume 90 fL (80-100); Monocytes # (Auto) 1.2 Thou/mm3 (0.0-0.8); Monocytes % (Auto) 7 % (0-12); Neutrophils # (Auto) 12.3 Thou/mm3 (1.8-7.7); Neutrophils % (Auto) 75 % (37-80); Nucleated Red Blood Cell # 0.23 Thou/mm3 (0.00-0.00); Nucleated Red Blood Cell % 1 /100 WBC (0); Platelet Count 91 Thou/mm3 (140-440); RDW Standard Deviation 55.5 fL (35.1-43.9); Red Blood Count 3.32 Miln/mm3 (4.50-5.90); White Blood Count 16.6 Thou/mm3 (3.8-10.6)
--- NOTE | 2024-08-23 06:17 | PC.NURSE ---
Patient did not void tonight. Bladder scan only shows 186 mL. I notified MD Bonilla and she said we can wait no need to straight cath him right now
[2024-08-23 06:55] LABS: Anion Gap 15 (7-16); BUN/Creatinine Ratio 15 Ratio (12-20); Blood Urea Nitrogen 48 mg/dL (9-23); Calcium 9.7 mg/dL (8.3-10.6); Carbon Dioxide 21.6 mMol/L (20.0-31.0); Chloride 99 mMol/L (98-107); Creatinine (Component) 3.2 mg/dL (0.6-1.3); Estimated Creatinine Clearance 19.9 mL/min (>60); Glucose 79 mg/dL (74-106); Osmolality,Calculated 283 (275-295); Potassium 4.5 mMol/L (3.4-5.1); Sodium 136 mMol/L (136-145); eGFR 20 See Note
--- NOTE | 2024-08-23 07:00 | XR_ITS ---
Examination: CT-guided percutaneous biopsy right lobe liver lesions CT abdomen without intravenous contrast Date and time of procedure: August 23, 2024 1334 hours INDICATIONS: Multiple liver lesions, subcentimeter, on CT abdomen study postcontrast August 23, 2024 Informed consent provided. A timeout was completed verifying correct patient, procedure, site and positioning. Technique: Axial 3 mm sections were obtained for localization of the liver lesion Appropriate area is marked. The patient's site was prepped and draped in sterile fashion Maximal sterile barrier technique utilized, including hand hygiene Local anesthesia was obtained with 1% lidocaine. Low dose protocols were performed. One or more of the following dose reduction techniques were used; automated exposure control, adjustment of the mA and/or KV according to patient size, use of iterative reconstruction technique. Utilizing CT fluoroscopic guidance 2 core biopsies obtained of multiple small liver lesions in the anterior right lobe liver Patient appears in stable condition during this procedure. At completion of the procedure, the patient is in satisfactory condition. Estimated blood loss 0 cc Complete pathology report to follow. Impression: Successful CT-guided percutaneous biopsy right lobe liver lesions
[2024-08-23 07:08] LABS: INR 1.1 (0.9-1.3); Prothrombin Time 11.6 Seconds (9.0-12.2)
[2024-08-23] MEDS: AMPICILLIN/SULBAC INJ 3 GM in SODIUM CHLORIDE 0.9% (P) 100 ML IV ×2 (08:18→20:40)
[2024-08-23] MEDS: EPOETIN ALFA-EPBX INJ 10,000 UNIT/ML VIAL (ESRD) 10000 UNIT SC (08:18)
[2024-08-23] MEDS: MIDODRINE 5 MG TABLET PO ×2 (08:19→20:40)
--- NOTE | 2024-08-23 11:44 | XR_ITS ---
Examination: CT abdomen with intravenous contrast CT pelvis with intravenous contrast 2-D coronal reconstructions 2-D sagittal reconstructions Date and time of exam: August 23, [address] abdomen pelvis August 15, 2024 INDICATIONS: Carcinoma history with liver lesions on ultrasound liver July 08, 2024 CTDI: vol (mGy) 7.09 DLP: (mGycm) 425 Technique: Multiple axial sections of the abdomen and pelvis have been obtained. 64 slice high-resolution scanner used. 3 mm axial sections have been obtained, post intravenous injection 60 cc [id number] 2-D sagittal, coronal reconstructions obtained. Low dose protocols were performed. One or more of the following dose reduction techniques were used; automated exposure control, adjustment of the mA and/or KV according to patient size, use of iterative reconstruction technique. Findings: Moderate to large right pleural effusion mild to moderate left pleural effusion Opacity in the lower lung zones consistent with pneumonia Pericardial effusion measuring up to 12 mm Numerous hepatic lesions diffusely throughout the liver No gallstones Anasarca Spleen not enlarged No pancreatic mass Mild ascites No hydronephrosis Heavy abdominal aortic calcification No bowel obstruction Urinary bladder intact Widespread osteoblastic metastatic disease IMPRESSION: Numerous hepatic lesions Widespread osseous metastatic disease
--- NOTE | 2024-08-23 12:21 | XR_ITS ---
Examination: Arterial duplex upper extremity study. Date and time of exam: August 23, 2024 1439 hours INDICATIONS: Diagnosis peripheral obstructive arterial disease upper extremity arteries Findings: Duplex sonographic imaging of the upper extremity arteries using B-mode/Bullock scale imaging and Doppler spectral analysis and color flow. No elevation of peak systolic velocities in the subclavian axillary brachial radial or ulnar arteries right upper extremity No flow depicted at the port site of subclavian artery Mild elevation of peak systolic velocities in the left axillary and left brachial arteries IMPRESSION: Consider CTA post contrast left upper extremity follow-up to exclude stenosis in the left subclavian artery
--- NOTE | 2024-08-23 14:42 | PC.SS ---
Rounding note: pending liver biopsy.
--- NOTE | 2024-08-23 17:11 | ESPR_ITS ---
Documentation for date of: 08/23/24 Subjective Subjective Interval history: Patient seen and examined at bedside. He is scheduled for CT-guided liver biopsy today, however IR would like further imaging in regards to liver mets lesions. Discussed with nephro if CT with contrast would be okay, and nephro agreed as patient will undergo hemodialysis on 1 in the morning. IR team was notified. Patient will be sent down for CT with contrast and plan for CT-guided liver mass biopsy. At bedside, patient's blood pressures continue to fluctuate between his RUE and LUE. LUE Doppler was negative for DVT. Will follow-up with arterial Doppler of RUE for possible arterial stenosis. Exam Vital Signs Temp Pulse Resp BP Pulse Ox O2 Del Method O2 Flow Rate 97.1 F 101 H 25 H 133/67 H 95 Oxy Mask 8 08/23/24 12:00 08/23/24 16:40 08/23/24 14:08 08/23/24 14:08 08/23/24 14:08 08/23/24 14:08 08/23/24 14:08 FiO2 8 08/23/24 12:55 Narrative Exam Gen: AAOx3, elderly male, appears chronically ill, cachectic, pleasant to speak with HEENT: PERRLA, EOMI, MM dry, left TDC noted without erythema, bleeding or discharge CVS: normal S1, S2. RRR. No MRG Resp: Diminished on R; no adventitious sounds appreciated Abd: soft, non-tender, non-distended. BS+ in all 4 quadrants MSK: Good ROM in BUE & BLE. 2+ pitting edema in BLE, LUE edema > RUE. Senile purpura Neuro: CN II-XII grossly intact. No focal deficits appreciated Objective Labs 08/24/24 16:07 08/24/24 16:07 Labs: Laboratory Results - last 24 hr 08/23/24 05:12 WBC 16.6 H RBC 3.32 L Hgb 9.4 L Hct 29.8 L MCV 90 MCH 28.3 MCHC 31.5 RDW Std Deviation 55.5 H Plt Count 91 L D Neut % (Auto) 75 Lymph % (Auto) 6 L [place] % (Auto) 7 Eos % (Auto) 1 Baso % (Auto) 0 Neut # (Auto) 12.3 H Lymph # (Auto) 1.0 [place] # (Auto) 1.2 H Eos # (Auto) 0.1 Baso # (Auto) 0.1 Immature Gran # (Auto) 1.92 H Absolute Nucleated RBC 0.23 H Immature Gran % 12 H Nucleated RBC % 1 H PT 11.6 INR 1.1 Sodium 136 Potassium 4.5 D Chloride 99 Carbon Dioxide 21.6 Anion Gap 15 BUN 48 H Creatinine 3.2 H D Estim Creat Clear Calc 19.9 L eGFR 20 L BUN/Creatinine Ratio 15 Glucose 79 Calculated Osmolality 283 Calcium 9.7 ABG Interpretation ABG results: 08/21/24 10:24 VBG pH 7.27 L VBG pCO2 42 VBG pO2 41 VBG Base Excess -7 L Quality Measures Quality Measures VTE prophylaxis Advance care planning discussed with:: patient and spouse Assessment & Plan Assessment Current Active Medications: Generic Name Dose Route Start Last Admin Trade Name Freq PRN Reason Stop Dose Admin Acetaminophen 650 mg 08/16/24 08:35 08/19/24 22:19 Acetaminophen 325 Mg Tablet PO 09/14/24 13:53 650 mg Q6H PRN Administration Fever >100.3 or pain (1-3) Albuterol/Ipratropium 3 ml 08/18/24 07:00 08/23/24 15:48 Albuterol/Ipratropium (Duoneb) Rt Zamzam 3 Ml Nebu INH 09/17/24 06:59 Not Given Q6HRRT JADE Albuterol/Ipratropium 3 ml 08/18/24 01:57 08/22/24 10:06 Albuterol/Ipratropium (Duoneb) Rt Zamzam 3 Ml Nebu INH 09/17/24 02:59 3 ml Q4HRRT PRN Administration Wheezing Amiodarone HCl 200 mg 08/15/24 15:30 08/23/24 09:55 Amiodarone Hcl 200 Mg Tablet PO 09/14/24 15:29 Not Given DAILY JADE Calcium Carbonate 600 mg 08/16/24 09:00 08/23/24 09:55 Calcium Carbonate 600 Mg Tablet PO 09/15/24 08:59 Not Given QDAY JADE Docusate Sodium 100 mg 08/15/24 15:13 08/18/24 03:20 Docusate Sod Liqd 100 Mg/10 Ml Udc PO 09/14/24 20:59 100 mg BID PRN Administration constipation Protocol Heparin Sodium (Porcine) 5,000 unit 08/15/24 21:00 08/22/24 11:21 Heparin Sod Inj 5000 Unit/Ml Vial SC 08/29/24 20:59 Not Given Q12HR JADE Heparin Sodium (Porcine) 3,500 unit 08/18/24 10:55 08/22/24 10:43 Heparin Sod Inj 1000 Unit/Ml Vial 10 Ml INDWELLCAT 3,500 unit PRN PRN Administration DIALYSIS Hydromorphone HCl 0.5 mg 08/19/24 16:25 08/22/24 16:36 Hydromorphone Inj 2 Mg/Ml Vial IVP 08/24/24 17:59 0.5 mg Q2HR PRN Administration BREAKTHROUGH PAIN (SEVERE) Albumin Human 25 gm in 100 mls @ 100 mls/hr 08/16/24 11:44 08/22/24 08:50 Albuminar-25 Ivpb IV 100 mls/hr PRN PRN Administration DIALYSIS Ampicillin Sodium/Sulbactam 100 mls @ 200 mls/hr 08/21/24 08:15 08/23/24 08:18 Sodium 3 gm/ Sodium Chloride IV 08/28/24 08:14 200 mls/hr Q12H JADE Administration Lidocaine 1 patch 08/17/24 11:30 08/23/24 09:55 Lidocaine 5% 1 Patch TOP 09/16/24 11:29 Not Given DAILY JADE Megestrol Acetate 400 mg 08/15/24 15:30 08/23/24 09:55 Megestrol Acet Susp 400 Mg/10 Ml Udc PO 09/14/24 15:29 Not Given DAILY JADE Metoprolol Succinate 50 mg 08/19/24 09:00 08/22/24 13:05 Metoprolol Succinate Xl 25 Mg Tabcr PO 09/18/24 08:59 Not Given QDAY JADE Midodrine 5 mg 08/23/24 07:45 08/23/24 14:00 Midodrine 5 Mg Tablet PO 09/22/24 07:44 Not Given TID JADE Mirtazapine 15 mg 08/19/24 21:00 08/22/24 20:19 Mirtazapine 15 Mg Tablet PO 09/18/24 20:59 15 mg HS JADE Administration Morphine Sulfate 10 mg 08/19/24 21:00 08/23/24 09:55 Morphine Sulf Liqd 10 Mg/5 Ml Udc PO 08/24/24 20:59 Not Given Q12HR JADE Ondansetron HCl 4 mg 08/15/24 14:57 08/18/24 09:44 Ondansetron Inj 2 Mg/Ml Inj 2 Ml IV 09/14/24 14:56 4 mg Q6HR PRN Administration NAUSEA OR VOMITING Protocol Oxycodone HCl 5 mg 08/23/24 05:12 08/23/24 17:06 Oxycodone Hcl 5 Mg Ir Tab PO 08/28/24 05:11 5 mg Q6HR PRN Administration PAIN SCALE 4-10(Mod-Sev Pantoprazole Sodium 40 mg 08/16/24 09:00 08/23/24 09:58 Pantoprazole Inj 40 Mg Vial IVP 09/15/24 08:59 Not Given QDAY JADE Plan Patient is a 74-year-old male PMH of A-fib rate controlled on amiodarone, BPH, hypertension, hyperlipidemia, insomnia, history of gastric carcinoma with esophageal obstruction, pericardial effusion status post pericardiocentesis who presented to ED today after experiencing urinary retention for more than 12 hours. Denies any abdominal pain, suprapubic pain, dysuria. Endorses decreased oral intake solids and liquids due to dysphagia of underlying gastric carcinoma and esophageal mass. Patient admitted for management of PILAR in setting of urinary retention/poor oral intake and hyperkalemia. #Goals of care Had a short goals of care conversation with patient and his , with hospitalist team and RN present. Discussed the need for liver biopsy for further tissue sampling to send for next generation sequencing, as recommended by oncologist. At this time patient is considering home hospice for discharge and to forego further treatment. He plans to discuss this further with his and family. Patient stated at this time he would like to be made DNR/DNI. POLST form will be signed, with copy placed in patient's chart, and original given to patient's . 08/20: [employer]LE[employer] DEVELOPER spoke with family and patient ultimately decided on choosing hospice. They wished to discuss decision with patient's other daughter, however did advise [employer] DEVELOPER to consult hospice agency. Patient will likely go home on hospice for gastric adenocarcinoma, with hospice agency accommodating hemodialysis. 08/21: Patient with no longer like to be discharged on home hospice. Will proceed with full treatment including chemotherapy. Will obtain liver mets biopsy on , 08/23/2024 once IR is back. #Hx gastric carcinoma with gastric outlet obstruction Diagnosis made 06/2024. 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 Patient has been following with Dr. Guevara on oncology. Currently has port cath placed for chemotherapy. Experiencing decreased appetite, fatigue, dysphagia. Poor oral intake with significant weight loss. -Dr. Guevara consulted ? Megestrol for appetite stimulant ? Zofran 4 mg every 6 hours as needed for nausea ? Pantoprazole 40 mg IV daily ? Mirtazapine for depression ? Refer to speech pathology--started patient on blenderized diet and boost ? Referral to dietitian ? Aspiration precautions Pain regimen changed to 10 mg morphine p.o. every 12 hours with 0.5 mg Dilaudid every 2 hours as needed for breakthrough pain. Monitor for respiratory depression Patient and family decided against PEG tube at this time. POLST form was signed with patient requesting DNR/DNI and no artificial feedings. Case was discussed with oncology, who recommended if patient does not go on hospice, will need a biopsy of liver mets for further tissue sampling for [employer] sequencing. CT- guided liver biopsy scheduled for 08/23/2024. Patient will be made n.p.o. at midnight, coags ordered for a.m. labs. Patient underwent successful CT-guided liver biopsy, following CT abdomen pelvis with contrast to characterize liver mets. Can follow-up on pathology outpatient with heme-onc. #Pericardial effusion In June 2024, patient noted to have pericardial effusion which was drained. On CT scan today, pericardial effusion was noted Cardiology consulted, appreciate recommendations #CAP #Leukocytosis, removing CT abdomen pelvis showed significant bilateral pneumonia with chest x-ray showing more prominence in right lung. Patient is denying any coughing or shortness of breath, fever or chills. Denies any close sick contacts. 08/21: Patient completed Rocephin, doxycycline IV antibiotic course. Noted that his white count was began to increase and diminished breath sounds in right base, therefore CXR was ordered which showed: Significant right lung pneumonia => started Unasyn #Pleural effusion, s/p thoracentesis As seen on CXR => may be malignant effusion Patient was evaluated after hemodialysis on 08/22/2024 with bedside ultrasound. Risk/benefits of thoracentesis was discussed and consent was obtained. Procedure was done under brand designer supervision, with pleural fluid sent for further analysis and cytology. Patient tolerated the procedure well (see separate procedure note) Pleural fluid exudative, as lights criteria met Follow-up cytology #Hypotension, resolved MAP <65 noted approximate 30-45 minutes postprocedure. Patient was evaluated at bedside, noted to be asymptomatic. He was placed in Trendelenburg position and 25 g albumin was given. Repeat BP with improvement, MAP >70 Will hold antihypertensives at this time and continue to monitor blood pressure Patient is on midodrine 5 mg 3 times daily #Abnormal blood pressure readings Significant difference in BP between left and right upper extremities. Patient denies any chest pain or tearing back pain. at bedside states this has been ongoing for past several months while at home. LUE is edematous, therefore there was concern for DVT however venous Doppler was negative Obtained arterial Doppler of BUE, which revealed: Mild elevation of peak systolic velocities in left axillary and left brachial arteries; radiology recommending CTA postcontrast left upper extremity follow-up to exclude stenosis in the left subclavian artery Due to patient receiving contrast for CT abdomen pelvis, will hold off on CT at this time and recommend for patient to follow-up with scan outpatient #Acute metabolic encephalopathy, resolved #Acute renal failure, likely prerenal in the setting of poor oral intake due to gastric carcinoma, resolving On initial presentation, patient was noted to be altered and with decreased urine output. Labs consistent with PILAR (baseline creatinine 0.9), likely prerenal in the setting of poor oral intake due to gastric carcinoma. He was started on hemodialysis and antibiotics, with improvement of mentation Labs at the time of admission showed sodium 127, potassium 6.7, chloride 90, bicarb 17.2, anion gap 20, BUN 141, creatinine 6.7, lactate 5.9, calcium 7.1, magnesium 3.5. Nephrology Dr. Parsons was consulted. Patient underwent TDC placement and hepatitis panel, PPD were taken => on discharge, patient will undergo hemodialysis Tuesday//Tuesday Renally dose medication and avoid nephrotoxic drugs. #Hypocalcemia, resolved #Hypermagnesemia, resolved #Hyperkalemia, resolved -At the time of admission, calcium 7.1, magnesium 3.5, potassium is 6.7 -Likely due to combined poor oral intake and PILAR -On 08/17, potassium is 5.2, calcium is 7.4, magnesium is 2.8 -As of 08/18, all 3 electrolytes are within normal limits. Plan -Patient received 3 hemodialysis sessions on 08/16, 08/17, 08/18 and is scheduled for outpatient HD TTS -Will continue to monitor electrolytes and manage accordingly. #Anion gap metabolic acidosis, resolving #Elevated lactic acidosis Most likely in the setting of underlying kidney failure. Admission lactic acidosis 5.9. Status post 2 L bolus fluids, lactic acid increased to 7.9 Plan -Patient was started on hemodialysis -Will continue to monitor labs #Hx atrial fibrillation, rate controlled EKG showed mild normal sinus rhythm. -Jack vasc score 2 -continue amiodarone 200 mg daily Started metoprolol 50 mg daily due to SBP in 140s. Continue to monitor vital signs and consider lowering dose of metoprolol if BP drops Below: Slightly manage renal function, to limit crying for UTI and med follow-up checking Reason need to take tomorrow (always so superficial femoral/iliac sure everything she called the radiologist there is a hole she is butlikeshesaw she #Hx BPH -Continue tamsulosin 0.4 mg PO daily ? Finasteride 5 mg p.o. daily Health maintenance: Dispo: Status post liver mets biopsy on 08/23/2024?follow-up path results outpatient with heme-onc; on unasyn for pneumonia; pending cytology s/p thoracentesis DVT prophylaxis: Subcu heparin CODE STATUS: DNR/DNI Diet: Blenderized Patient seen and care discussed with my attending Dr. Anna. Damien Miner MD PGY-3 Attending Provider Attestation/Addendum I have discussed and was present for the essential components of the history, physical examination, diagnosis, and treatment plan with the resident. I agree with the patient's care as documented by the resident and amended herein by me. Jaswinder Anna DO. Patient seen and evaluated this AM. The patient has decided to again pursue hospice after discussing with his family, will receive another hemodialysis session today then discharge home with home hospice tomorrow on 08/25. Social work notified. The patient wishes to continue dialysis as long as he can on hospice care. Although this document has been carefully reviewed, there may still be some phonetic and other typographical errors. These errors are purely grammatical due to imperfections in the software program and should not be construed in any way to compromise the substance of the patient's medical care during this visit.
--- NOTE | 2024-08-23 17:27 | ECHO_ITS ---
Transthoracic Echo Report Ht (in): 69 Wt (lb): 151 Exam Location: [facility]able Status: Inpatient Acid Plant Helper: Nisha Clark Indications: Procedure Performed: BP: 159 / 97 HR: 109 Rhythm: tachycardia Technical Quality: Fair MEASUREMENTS (Male / Female) Normal Values 2D ECHO LV Diastolic Diameter PLAX 5.4 cm 4.2 - 5.9 / 3.9 - 5.3 cm LV Systolic Diameter PLAX 3.5 cm IVS Diastolic Thickness 0.9 cm 0.6 - 1.0 / 0.6 - 0.9 cm LVPW Diastolic Thickness 1.0 cm 0.6 - 1.0 / 0.6 - 0.9 cm LV Relative Wall Thickness 0.3 LVOT Diameter 2.1 cm Ascending Aorta Diameter 3.0 cm M-MODE Aortic Root Diameter MM 3.3 cm LA Systolic Diameter MM 3.8 cm LA Ao Ratio MM 1.2 AV Cusp Separation MM 1.7 cm DOPPLER AV Peak Velocity 237.0 cm/s AV Peak Gradient 22.5 mmHg AV Mean Gradient 11.3 mmHg AV Velocity Time Integral 38.0 cm LVOT Peak Velocity 128.0 cm/s LVOT Peak Gradient 6.6 mmHg LVOT Velocity Time Integral 20.4 cm LVOT Cardiac Index 4217.0 cm?/min?m? AV Area Cont Eq vti 1.9 cm? AV Area Cont Eq pk 1.9 cm? MV Peak Velocity 108.0 cm/s MV Peak Gradient 4.7 mmHg MV Mean Velocity 64.8 cm/s MV Mean Gradient 2.0 mmHg MV Area PHT 5.7 cm? Mitral E Point Velocity 54.5 cm/s Mitral A Point Velocity 80.5 cm/s Mitral E to A Ratio 0.7 LV E' Lateral Velocity 8.4 cm/s Mitral E to LV E' Lateral Ratio 6.5 LV E' Septal Velocity 5.5 cm/s Mitral E to LV E' Septal Ratio 9.8 TR Peak Velocity 333.3 cm/s TR Peak Gradient 44.4 mmHg FINDINGS Left Ventricle Normal left ventricular size, wall thickness, systolic function. Septal flattened due to RV pressure and volume overload. The ejection fraction is visually estimated at 60-65%. Right Ventricle The right ventricle is moderately dilated. Normal systolic function. The estimated right ventricula r systolic pressure, 64 mmHg. RAP 15. Left Atrium The left atrium is normal by two-dimensional, color flow and Doppler imaging with no structural abnormalities, no thrombus formation present. Right Atrium The right atrium is mildly dilated. Atrial Septum The interatrial septum appears normal with no evidence of a shunt. Aorta The aorta is normal by two-dimensional, color flow and Doppler interrogation. Mitral Valve The mitral valve is normal by two-dimensional, color flow and Doppler interrogation. There is mild m itral valve regurgitation. Aortic Valve The aortic valve is trileaflet. Mild stenosis, mean gradient 14mmHg, vmax 2.5m/s. There is trace ao rtic valve regurgitation. Tricuspid Valve The tricuspid valve is normal by two-dimensional, color flow and Doppler interrogation. There is mil d tricuspid valve regurgitation. Pulmonic Valve There is no significant pulmonic valve regurgitation. Vessels The pulmonary artery appears normal. The inferior vena cava pulmonary and hepatic veins dilated. Pericardium The pericardium is normal by two-dimensional imaging. There is small to moderate pericardial effusi on, near the RA. Other Findings Pleural effusion present. CONCLUSIONS There is small to moderate pericardial effusion, near the RA. No evidence of cardiac tamponade. Pericardiocentecis not indicated Normal LV size and function. Septal flattened due to RV pressure and volume overload.Estimated EF 60 - 65% Moderate RV dilatation. Estimated RVSP 64mmHg Mild RA dilatation Mild AV stenosis, mean gradient 14mmHg, vmax 2.5m/s Mild MR, TR. Trace AI. Pleural effusion present. IVC dilated. Nanci Soto (Electronically Signed) Final Date: 24 August 2024 12:43
--- NOTE | 2024-08-23 17:49 | EKG_ITS ---
[facility] Test Date: 2024-08-23 Pat Name: JUAN ANTONIO COELLO [facility] Gender: [facility] Opener: ZAID : [id number] Requested By: Damien Miner Order Number: [id number] Reading MD: Damien Miner Measurements Intervals [place] Rate: 98 P: 74 RI: 174 QRS: -83 QRSD: 153 T: 41 QT: 397 QTc: 508 Interpretive Statements SINUS RHYTHM WITH FREQUENT VENTRICULAR PREMATURE COMPLEXES POSSIBLE LEFT ATRIAL ENLARGEMENT MARKED LEFT AXIS DEVIATION RIGHT BUNDLE BRANCH BLOCK Compared to ECG 08/18/2024 14:06:35 Left-axis deviation now present Sinus tachycardia no longer present Left anterior fascicular block no longer present /[id number]/S0/[id number]
--- NOTE | 2024-08-23 19:56 | PD.NEPHPROG ---
Documentation for date of: 08/23/24 Subjective Subjective Interval history: Mr. Da Silva is a 74-year-old male with past medical history of A-fib (rate controlled on amiodarone), BPH, hypertension, hyperlipidemia, insomnia, history of gastric carcinoma with esophageal obstruction, pericardial effusion status post pericardiocentesis who presented to ED on 08/15 after experiencing urinary retention. 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 Underwent pericardiocentesis. During this admission he presented with symptoms of urinary retention have been ongoing since past 12 hours. Patient was confused, history obtained from family at bedside who stated that patient has had poor oral intake with difficulty swallowing due to obstruction. Has had significant weight loss and dysphagia. Patient denies any dysuria but endorses difficulty in maintaining stream. He is compliant with BPH medications. Oncologist Dr. Guevara has been following patient since previous discharge. Patient has Port-A-cath placed in preparation for chemotherapy. He denies any constipation, diarrhea, blood in the stool, abdominal pain, fever, or chills. Endorses weakness. At home, diet consists of soft foods and little pieces. No issues of aspiration. ED course significant for, vitals of blood pressure 108/59, pulse 75, 92% O2 on room air. ED labs revealed WBC 8.1, hemoglobin 11.4, platelets 228, hyponatremic 128, hyperkalemic 6.7, bicarb 17.2, AG 20, Cr 6.7, lactic acid 5.9, corrected calcium 7.0, magnesium 3.5, ALP 710, BNP 512, procalcitonin 0.99. UA negative. EKG showed normal sinus rhythm with first-degree AV block, peaking of Twaves, negative troponins. Chest x-ray bilateral pneumonia more severe in right lung. CT abdomen pelvis showing bibasilar pneumonia, cirrhosis, no significant prostatomegaly. In ED patient was given calcium carbonate x 1, 2 L bolus normal saline, 5 units regular insulinAmp D5W, Rocephin times 1 g x 1, azithromycin 500 mg x 1. Stat repeat CMP no significant improvement of potassium at 6.4, worsening acidosis bicarb 14.8, creatinine 6.5 calcium 7.1, 3 mag 3.5. Repeat lactic acid elevated to 7.9. Patient admitted for managemenet of PILAR in setting of urinary retention/poor oral intake and hyperkalemia. Nephrology consulted for same. Home medications amiodarone 200 mg p.o. daily metoprolol succinate 50 twice daily, Lasix 40 daily, lidocaine patch, citalopram 40 mg p.o. daily, famotidine 20 mg, trazodone 100 mg, mirtazapine 15 mg, finasteride 5 mg, rosuvastatin 40 mg, tamsulosin 0.4 mg Nephrology was consulted for PILAR on CKD, patient has had minimal urine output in setting of acute renal failure and poor oral intake, patient' mentation has worsened compared to admission, more confused, discussed with family agreeable to start dialysis, patient will receive dialysis today after temporary dialysis catheter placement. Discussed with ICU team to assist with placement of temporary catheter. Patient's potassium continues to remain elevated. 08/20/2024 patient currently seen on dialysis. Family considering hospice although wanted to continue with hemodialysis. Patient complaining of fatigue. Decreased p.o. intake. WBC 12.7, hemoglobin 10.4, platelets 97,000. Sodium 135, potassium 4.2, BUN 62, creatinine 3.9 hepatitis panel shows hep C positive. PPD placed. Outpatient dialysis arrangements pending. Still seems to be very sick looking. Has underlying cancer. 08/21/2024 patient currently seen in medical floor. Did receive dialysis yesterday. Next dialysis will be scheduled for . Hep C positive. PPD so far negative. Outpatient dialysis will be arranged. Spoke to family (, daughter) at bedside and they want to pursue continue with chemotherapy and dialysis. 08/23/2023 patient currently seen in medical floor. Just came back from liver biopsy. Daughter and at bedside. Left arm swollen. Doppler ultrasound ordered by medical team. CT scan abdomen with contrast done by medical team.WBC 16.6, hemoglobin 9.4, platelets 91. Sodium 136, potassium 4.5, BUN 48, creatinine 3.2, Doppler ultrasound showed no DVT. CT abdomen with contrast showed widespread metastatic disease and hepatic lesions. Liver biopsy was done Review of Systems Review of Systems Narrative Review of Systems: Pertinent review of systems was completed with significant findings included in HPI above Exam Vital Signs Temp Pulse Resp BP Pulse Ox O2 Del Method O2 Flow Rate 36.1 C 101 H 18 124/58 L 97 Oxy Mask 9 08/23/24 16:00 08/23/24 16:40 08/23/24 16:00 08/23/24 16:00 08/23/24 16:00 08/23/24 16:00 08/23/24 16:00 FiO2 8 08/23/24 12:55 Narrative Exam GENERAL APPEARANCE: Patient very cachectic. Lost weight. Temporal wasting noted. NECK: Neck supple, no JVD or bruit CARDIOVASCULAR: Heart regular, no murmurs LUNGS/CHEST: Few rhonchi noted bilaterally ABDOMEN: Soft, nontender, nondistended. No masses. Normal bowel sounds. EXTREMITIES: No edema, clubbing or cyanosis. SKIN: Left IJ PermCath. MUSCULOSKELETAL: Significant functional decline/gait imbalance NEUROLOGICAL : Alert and awake Objective Labs 08/24/24 04:31 08/24/24 04:31 Labs: Laboratory Results - last 24 hr 08/23/24 05:12 WBC 16.6 H RBC 3.32 L Hgb 9.4 L Hct 29.8 L MCV 90 MCH 28.3 MCHC 31.5 RDW Std Deviation 55.5 H Plt Count 91 L D Neut % (Auto) 75 Lymph % (Auto) 6 L [place] % (Auto) 7 Eos % (Auto) 1 Baso % (Auto) 0 Neut # (Auto) 12.3 H Lymph # (Auto) 1.0 [place] # (Auto) 1.2 H Eos # (Auto) 0.1 Baso # (Auto) 0.1 Immature Gran # (Auto) 1.92 H Absolute Nucleated RBC 0.23 H Immature Gran % 12 H Nucleated RBC % 1 H PT 11.6 INR 1.1 Sodium 136 Potassium 4.5 D Chloride 99 Carbon Dioxide 21.6 Anion Gap 15 BUN 48 H Creatinine 3.2 H D Estim Creat Clear Calc 19.9 L eGFR 20 L BUN/Creatinine Ratio 15 Glucose 79 Calculated Osmolality 283 Calcium 9.7 ABG Interpretation ABG results: 08/21/24 10:24 VBG pH 7.27 L VBG pCO2 42 VBG pO2 41 VBG Base Excess -7 L Assessment & Plan Additional Assessment & Plan Additional Plan: Summary: Mr. Da Silva is a 74-year-old male PMH of A-fib rate controlled on amiodarone, BPH, hypertension, hyperlipidemia, insomnia, history of gastric carcinoma with esophageal obstruction, pericardial effusion status post pericardiocentesis who presented to ED today after experiencing urinary retention for more than 12 hours. Denies any abdominal pain, suprapubic pain, dysuria. Endorses decreased oral intake solids and liquids due to dysphagia of underlying gastric carcinoma and esophageal mass. Patient admitted for management of PILAR in setting of urinary retention/poor oral intake and hyperkalemia. Patient had continually decreased urine output, confusion and hyperkalemia, nephrology consulted, started patient on hemodialysis. #Acute renal failure secondary to ATN. Electrolyte imbalance corrected. Suspect prerenal azotemia leading towards ATN with decreased urine output-in the setting of gastric carcinoma and esophageal tumor obstruction. Patient has had poor oral intake including liquids. Significant weight loss in past month. Endorses no urinary output in past 12 hours. Denies any abdominal pain, suprapubic pain, dysuria. At home patient normally eats softened foods in small pieces with Ensure supplement. CT abdomen pelvis showed no findings of urinary retention, bladder expansion, no significant prostatomegaly. Next dialysis scheduled for tomorrow. Outpatient dialysis will be arranged. Spoke to daughter, -they want to continue with chemotherapy And dialysis. #CAP #Hx gastric carcinoma with gastric outlet obstruction #Hx atrial fibrillation, rate controlled #Hx of possible hypotension #Hx BPH Management as per primary team Status post liver biopsy. Metastatic cancer. Prognosis poor. Family aware.
[2024-08-23] MEDS: MORPHINE SULF LIQD 10 MG/5 ML UDC PO (20:39)
[2024-08-23] MEDS: MIRTAZAPINE 15 MG TABLET PO (20:40)
[2024-08-24] VITALS (30 sets, daily range): BP systolic 97–159; BP diastolic 45–99; PULSE 93–118; RESP 12–23; TEMP 36.1–36.9; O2SAT 93–99; BMI 21.7
[2024-08-24] MEDS: ALBUTEROL/IPRATROPIUM (Duoneb) RT SOL 3 ML NEBU INH ×3 (01:50→18:25)
[2024-08-24 05:21] LABS: Basophils # (Auto) 0.2 Thou/mm3 (0.0-0.2); Basophils % (Auto) 1 % (0-2.5); Eosinophils # (Auto) 0.1 Thou/mm3 (0.0-0.5); Eosinophils % (Auto) 1 % (0-10); Hematocrit 33.9 % (41.0-53.0); Hemoglobin 10.6 g/dL (13.5-16.0); Immature Granulocytes % (Auto) 10 % (0-0); Immature Granulocytes Auto 1.86 Thou/mm3 (0.00-0.00); Lymphocytes # (Auto) 1.1 Thou/mm3 (1.0-4.8); Lymphocytes % (Auto) 6 % (10-50); Mean Corpuscular HGB Conc 31.3 g/dl (31.0-37.0); Mean Corpuscular Hemoglobin 28.2 pg (25.0-35.0); Mean Corpuscular Volume 90 fL (80-100); Monocytes # (Auto) 1.2 Thou/mm3 (0.0-0.8); Monocytes % (Auto) 6 % (0-12); Neutrophils # (Auto) 14.8 Thou/mm3 (1.8-7.7); Neutrophils % (Auto) 77 % (37-80); Nucleated Red Blood Cell # 0.33 Thou/mm3 (0.00-0.00); Nucleated Red Blood Cell % 2 /100 WBC (0); Platelet Count 128 Thou/mm3 (140-440); RDW Standard Deviation 57.1 fL (35.1-43.9); Red Blood Count 3.76 Miln/mm3 (4.50-5.90); White Blood Count 19.2 Thou/mm3 (3.8-10.6)
[2024-08-24 06:14] LABS: Anion Gap 19 (7-16); BUN/Creatinine Ratio 14 Ratio (12-20); Blood Urea Nitrogen 55 mg/dL (9-23); Carbon Dioxide 19.1 mMol/L (20.0-31.0); Chloride 98 mMol/L (98-107); Creatinine (Component) 3.9 mg/dL (0.6-1.3); Glucose 73 mg/dL (74-106); Osmolality,Calculated 286 (275-295); Potassium 5.1 mMol/L (3.4-5.1); Sodium 136 mMol/L (136-145); eGFR 16 See Note
[2024-08-24 06:22] LABS: Estimated Creatinine Clearance 15.9 mL/min (>60)
[2024-08-24] MEDS: MEGESTROL ACET SUSP 400 MG/10 ML UDC PO (09:55)
[2024-08-24] MEDS: MORPHINE SULF LIQD 10 MG/5 ML UDC PO (09:55)
--- NOTE | 2024-08-24 11:35 | ESPR_ITS ---
Documentation for date of: 08/24/24 Subjective Subjective Interval history: Jim Da Silva is a 74-year-old male with a past medical history of A-fib (on amiodarone), BPH, hypertension, hyperlipidemia, insomnia, history of gastric carcinoma with esophageal obstruction, pericardial effusion status post pericardiocentesis who presented with urinary retention and poor p.o. intake. On admission, patient was confused so history obtained from family at bedside who stated that patient has also had poor oral intake with dysphagia secondary to obstruction leading to significant weight loss. 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 Guevara since. Currently has Port-A-Cath in preparation for chemotherapy. Denies dysuria but endorses difficulty maintaining stream. Compliant with BPH medications. Denies constipation, diarrhea, melena, hematochezia, abdominal pain, fever, chills. Diet at home consist of soft foods and little pieces with no issues of aspiration. In ED, labs significant for hyponatremia 128, hyperkalemia 6.7, Cr 6.7, lactic acid 5.9, bicarb 17.2, AG 20, corrected Ca 7, Mg 3.5, ALP 710, BNP 512, Pro-Jesse 0.99. UA negative. EKG: NSR with first-degree AV block. CXR: Bilateral pneumonia, R > L. CT A/P: Bibasilar pneumonia, cirrhosis, no significant prostatomegaly. Received calcium carbonate x 1, 2 L NS bolus, 5 units regular insulin, D5W, Rocephin x 1, azithromycin x 1. Stat repeat CMP showed hyperkalemia 6.4, lactic acid 7.9, bicarb 14.8, CR 6.5, corrected Ca 7.1, Mg 3.5. Patient admitted for management of PILAR in setting of urinary retention/poor p.o. intake and hyperkalemia. Nephrology consulted for PILAR on CKD. Patient has had minimal urine output in setting of acute renal failure and poor p.o. intake. Mentation has worsened compared to admission as he is more confused. Had discussion with family who are agreeable to start dialysis after placement of temporary dialysis catheter. Discussed with ICU team to assist with placement of catheter. 08/20: Patient currently seen on dialysis. Family considering hospice although wanted to continue with hemodialysis. Patient complaining of fatigue. Decreased p.o. intake. WBC 12.7, hgb 10.4, platelets 97,000. Na 135, K 4.2, BUN 62, Cr 3.9. HCV positive. PPD placed. Outpatient dialysis arrangements pending. Still seems to be very sick looking. 08/21: Patient currently seen in medical floor. Received dialysis yesterday and next dialysis will be scheduled for (08/23). PPD so far negative. Outpatient dialysis will be arranged. Spoke to family (, daughter) at bedside and they want to pursue continue with chemotherapy and dialysis. 08/23: Patient currently seen in medical floor with daughter and at bedside. Just came back from liver biopsy. Left arm swollen. Doppler ultrasound and CT abdomen with contrast ordered by medical team. WBC 16.6, hemoglobin 9.4, platelets 91. Na 136, K 4.5, BUN 48, Cr 3.2. Doppler ultrasound negative for DVT. CT abdomen with contrast showed widespread metastatic disease and hepatic lesions. 08/24: Patient seen in telemetry with daughter and at bedside. Had a discussion regarding patient's prognosis and options available, aggressive treatment versus hospice/comfort, and let family know that we will support what ever decision they choose. Increasing leukocytosis 19.2, hemoglobin 10.6, platelets 128. Na 136, K 5.1, BUN 55, Cr 3.9. Exam Vital Signs Temp Pulse Resp BP Pulse Ox O2 Del Method O2 Flow Rate 97.2 F 107 H 22 H 144/62 H 93 L Oxy Mask 5 08/24/24 08:00 08/24/24 08:00 08/24/24 08:00 08/24/24 08:00 08/24/24 08:00 08/24/24 08:00 08/24/24 08:00 FiO2 8 08/24/24 04:00 Narrative Exam General: chronically ill-appearing, cachectic, temporal wasting noted HEENT: NC/AT, mucous membranes moist, bilateral sclera anicteric Cardiovascular: regular rate and rhythm, S1/S2 present, no murmurs appreciated Pulmonary: mild rhonchi bilaterally Abdominal: soft, non-tender, non-distended, no rebound/guarding, normal bowel sounds present Skin: left internal jugular PermCath placed Neuro: CN II-XII intact, no focal deficits Objective Labs 08/25/24 06:20 08/25/24 06:20 Labs: Laboratory Results - last 24 hr 08/24/24 04:31 WBC 19.2 H RBC 3.76 L Hgb 10.6 L Hct 33.9 L MCV 90 MCH 28.2 MCHC 31.3 RDW Std Deviation 57.1 H Plt Count 128 L D Neut % (Auto) 77 Lymph % (Auto) 6 L [place] % (Auto) 6 Eos % (Auto) 1 Baso % (Auto) 1 Neut # (Auto) 14.8 H Lymph # (Auto) 1.1 [place] # (Auto) 1.2 H Eos # (Auto) 0.1 Baso # (Auto) 0.2 Immature Gran # (Auto) 1.86 H Absolute Nucleated RBC 0.33 H Immature Gran % 10 H Nucleated RBC % 2 H Sodium 136 Potassium 5.1 D Chloride 98 Carbon Dioxide 19.1 L Anion Gap 19 H BUN 55 H Creatinine 3.9 H D Estim Creat Clear Calc 15.9 L eGFR 16 L BUN/Creatinine Ratio 14 Glucose 73 L Calculated Osmolality 286 Calcium 9.0 ABG Interpretation ABG results: 08/21/24 10:24 VBG pH 7.27 L VBG pCO2 42 VBG pO2 41 VBG Base Excess -7 L Quality Measures Quality Measures VTE prophylaxis Advance care planning discussed with:: patient, spouse and child Assessment & Plan Assessment Current Active Medications: Generic Name Dose Route Start Last Admin Trade Name Freq PRN Reason Stop Dose Admin Acetaminophen 650 mg 08/16/24 08:35 08/19/24 22:19 Acetaminophen 325 Mg Tablet PO 09/14/24 13:53 650 mg Q6H PRN Administration Fever >100.3 or pain (1-3) Albuterol/Ipratropium 3 ml 08/18/24 07:00 08/24/24 06:35 Albuterol/Ipratropium (Duoneb) Rt Zamzam 3 Ml Nebu INH 09/17/24 06:59 3 ml Q6HRRT JADE Administration Albuterol/Ipratropium 3 ml 08/18/24 01:57 08/22/24 10:06 Albuterol/Ipratropium (Duoneb) Rt Zamzam 3 Ml Nebu INH 09/17/24 02:59 3 ml Q4HRRT PRN Administration Wheezing Amiodarone HCl 200 mg 08/15/24 15:30 08/23/24 09:55 Amiodarone Hcl 200 Mg Tablet PO 09/14/24 15:29 Not Given DAILY [facility] Calcium Carbonate 600 mg 08/16/24 09:00 08/23/24 09:55 Calcium Carbonate 600 Mg Tablet PO 09/15/24 08:59 Not Given QDAY [facility] Docusate Sodium 100 mg 08/15/24 15:13 08/18/24 03:20 Docusate Sod Liqd 100 Mg/10 Ml Udc PO 09/14/24 20:59 100 mg BID PRN Administration constipation Protocol Heparin Sodium (Porcine) 5,000 unit 08/15/24 21:00 08/22/24 11:21 Heparin Sod Inj 5000 Unit/Ml Vial SC 08/29/24 20:59 Not Given Q12HR JADE Heparin Sodium (Porcine) 3,500 unit 08/18/24 10:55 08/22/24 10:43 Heparin Sod Inj 1000 Unit/Ml Vial 10 Ml INDWELLCAT 3,500 unit PRN PRN Administration DIALYSIS Hydromorphone HCl 0.5 mg 08/19/24 16:25 08/22/24 16:36 Hydromorphone Inj 2 Mg/Ml Vial IVP 08/24/24 17:59 0.5 mg Q2HR PRN Administration BREAKTHROUGH PAIN (SEVERE) Albumin Human 25 gm in 100 mls @ 100 mls/hr 08/16/24 11:44 08/22/24 08:50 Albuminar-25 Ivpb IV 100 mls/hr PRN PRN Administration DIALYSIS Ampicillin Sodium/Sulbactam 100 mls @ 200 mls/hr 08/21/24 08:15 08/23/24 21:10 Sodium 3 gm/ Sodium Chloride IV 08/28/24 08:14 Infused Q12H [facility] Infusion Lidocaine 1 patch 08/17/24 11:30 08/23/24 09:55 Lidocaine 5% 1 Patch TOP 09/16/24 11:29 Not Given DAILY [facility] Megestrol Acetate 400 mg 08/15/24 15:30 08/24/24 09:55 Megestrol Acet Susp 400 Mg/10 Ml Udc PO 09/14/24 15:29 400 mg DAILY JADE Administration Metoprolol Succinate 50 mg 08/19/24 09:00 08/22/24 13:05 Metoprolol Succinate Xl 25 Mg Tabcr PO 09/18/24 08:59 Not Given QDAY JADE Midodrine 5 mg 08/23/24 07:45 08/24/24 05:12 Midodrine 5 Mg Tablet PO 09/22/24 07:44 Not Given TID JADE Mirtazapine 15 mg 08/19/24 21:00 08/23/24 20:40 Mirtazapine 15 Mg Tablet PO 09/18/24 20:59 15 mg HS JADE Administration Morphine Sulfate 10 mg 08/19/24 21:00 08/24/24 09:55 Morphine Sulf Liqd 10 Mg/5 Ml Udc PO 08/24/24 20:59 10 mg Q12HR JADE Administration Ondansetron HCl 4 mg 08/15/24 14:57 08/18/24 09:44 Ondansetron Inj 2 Mg/Ml Inj 2 Ml IV 09/14/24 14:56 4 mg Q6HR PRN Administration NAUSEA OR VOMITING Protocol Oxycodone HCl 5 mg 08/23/24 05:12 08/23/24 22:56 Oxycodone Hcl 5 Mg Ir Tab PO 08/28/24 05:11 5 mg Q6HR PRN Administration PAIN SCALE 4-10(Mod-Sev Pantoprazole Sodium 40 mg 08/16/24 09:00 08/23/24 09:58 Pantoprazole Inj 40 Mg Vial IVP 09/15/24 08:59 Not Given QDAY JADE Ortega Da Silva is a 74-year-old male with a past medical history of A-fib (on amiodarone), BPH, hypertension, hyperlipidemia, insomnia, history of gastric carcinoma with esophageal obstruction, pericardial effusion status post pericardiocentesis who presented with urinary retention and poor p.o. intake. Denies any abdominal pain, suprapubic pain, dysuria. Endorses decreased oral intake solids and liquids due to dysphagia of underlying gastric carcinoma and esophageal mass. Patient admitted for management of PILAR in setting of urinary retention/poor oral intake and hyperkalemia. Patient had continually decreased urine output, confusion and hyperkalemia, nephrology consulted, started patient on hemodialysis. #Acute renal failure secondary to ATN #Electrolyte imbalance, resolved Suspect prerenal azotemia leading towards ATN with decreased urine output in setting of gastric carcinoma and esophageal tumor obstruction. Patient has had poor oral intake including liquids leading to significant weight loss in past month. At home patient normally eats softened foods in small pieces with Ensure supplement. No urinary output in past 12 hours. Denies any abdominal pain, suprapubic pain, dysuria. CT abdomen pelvis showed no findings of urinary retention, bladder expansion, or significant prostatomegaly. Dialysis sessions this admission: 08/16, 08/17, 08/18, 08/20, 08/22 ? Dialysis today ? Retacrit x 1 today (total of 3 doses: 08/20, 08/23, 08/24) ? Outpatient dialysis to be arranged #CAP #Hx gastric carcinoma with gastric outlet obstruction #Hx atrial fibrillation, rate controlled #Hx of possible hypotension #Hx BPH ? Continue management per primary team ----- Plan discussed with attending physician Dr. Jaqueline Chu MD PGY-1 Internal Medicine Attending Provider Attestation/Addendum Patient seen and examined with resident physician Dr. Cassidy. Note reviewed, agree with findings and recommendations. Had a long conversation with family regarding poor prognosis, metastatic gastric cancer. and daughter had several questions. Recommended to consider hospice as he has extremely poor prognosis.
--- NOTE | 2024-08-24 12:54 | PC.SS ---
CANCER RESEARCHER informed by attending that patient is requesting to transition to hospice services. CANCER RESEARCHER met with patient's family spouse and daughter (Alice) who confirmed that patient has elected to transition to hospice services. Preferred hospice agency is [facility]. DME needs: side table and oxygen. Patient will return home. Confirmed home address: [address] [place], [place] [id number].
--- NOTE | 2024-08-24 14:28 | PC.SS ---
Rounding Note: Patient to d/c home tomorrow with [facility].
--- NOTE | 2024-08-24 14:38 | ESPR_ITS ---
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 Elena Stern agree with the treatment plan recommendations Patient's family agreed to have him placed in hospice care which appears to be reasonable. Documentation for date of: 08/24/24 Subjective Subjective Interval history: Patient seen and examined while receiving dialysis. Patient appears to be very lethargic, but denies any chest pain or shortness of breath or palpitations. Goal dialysis is 2 L removal, but limited due to patient's soft blood pressure. Echocardiogram taken and showed Small to moderate pericardial effusion near the right atrium but no evidence of cardiac tamponade. At this time, pericardiocentesis not indicated. Ejection fraction 60 to 65%. Moderate RV dilatation, with RVSP at 64 mmHg, pleural effusion present, and IVC dilated. Patient most likely will be going home with home hospice tomorrow. Exam Vital Signs Temp Pulse Resp BP Pulse Ox O2 Del Method O2 Flow Rate 98.4 F 97 22 H 118/55 L 93 L Oxy Mask 5 08/24/24 12:22 08/24/24 14:30 08/24/24 12:22 08/24/24 14:30 08/24/24 12:22 08/24/24 12:00 08/24/24 12:22 FiO2 8 08/24/24 12:22 Narrative Exam General Appearance: Pt in mild acute distress in bed. Cachectic, ill-appearing. Lethargic. Able to answer some questions. HEENT: NC/AT, no scleral icterus, no conjunctival pallor, MMM Lungs: CTAB, no wheezes or crackles appreciated, no accessory muscle use noted. CVS: RRR, S1/S2 heard, no murmurs or rubs appreciated Chest: Left internal jugular PermCath intact ABD: Soft, non-tender, non-distended, BS + in all 4 quadrants EXT: no deformity/edema/lesions/cyanosis/clubbing, radial pulses 2+ BL, DP pulses 2 + BL SKIN: Skin exam normal without any rashes. Neuro: Alert and awake. No gross neurological deficits. Psych: Appropriate mood and affect Objective Labs 08/24/24 16:07 08/24/24 16:07 Labs: Laboratory Results - last 24 hr 08/24/24 04:31 WBC 19.2 H RBC 3.76 L Hgb 10.6 L Hct 33.9 L MCV 90 MCH 28.2 MCHC 31.3 RDW Std Deviation 57.1 H Plt Count 128 L D Neut % (Auto) 77 Lymph % (Auto) 6 L [place] % (Auto) 6 Eos % (Auto) 1 Baso % (Auto) 1 Neut # (Auto) 14.8 H Lymph # (Auto) 1.1 [place] # (Auto) 1.2 H Eos # (Auto) 0.1 Baso # (Auto) 0.2 Immature Gran # (Auto) 1.86 H Absolute Nucleated RBC 0.33 H Immature Gran % 10 H Nucleated RBC % 2 H Sodium 136 Potassium 5.1 D Chloride 98 Carbon Dioxide 19.1 L Anion Gap 19 H BUN 55 H Creatinine 3.9 H D Estim Creat Clear Calc 15.9 L eGFR 16 L BUN/Creatinine Ratio 14 Glucose 73 L Calculated Osmolality 286 Calcium 9.0 ABG Interpretation ABG results: 08/21/24 10:24 VBG pH 7.27 L VBG pCO2 42 VBG pO2 41 VBG Base Excess -7 L Quality Measures Quality Measures VTE prophylaxis Advance care planning discussed with:: patient Assessment & Plan Assessment Current Active Medications: Generic Name Dose Route Start Last Admin Trade Name Freq PRN Reason Stop Dose Admin Acetaminophen 650 mg 08/16/24 08:35 08/19/24 22:19 Acetaminophen 325 Mg Tablet PO 09/14/24 13:53 650 mg Q6H PRN Administration Fever >100.3 or pain (1-3) Albuterol/Ipratropium 3 ml 08/18/24 07:00 08/24/24 12:43 Albuterol/Ipratropium (Duoneb) Rt Zamzam 3 Ml Nebu INH 09/17/24 06:59 Not Given Q6HRRT JADE Albuterol/Ipratropium 3 ml 08/18/24 01:57 08/22/24 10:06 Albuterol/Ipratropium (Duoneb) Rt Zamzam 3 Ml Nebu INH 09/17/24 02:59 3 ml Q4HRRT PRN Administration Wheezing Amiodarone HCl 200 mg 08/15/24 15:30 08/23/24 09:55 Amiodarone Hcl 200 Mg Tablet PO 09/14/24 15:29 Not Given DAILY JADE Calcium Carbonate 600 mg 08/16/24 09:00 08/23/24 09:55 Calcium Carbonate 600 Mg Tablet PO 09/15/24 08:59 Not Given QDAY JADE Docusate Sodium 100 mg 08/15/24 15:13 08/18/24 03:20 Docusate Sod Liqd 100 Mg/10 Ml Udc PO 09/14/24 20:59 100 mg BID PRN Administration constipation Protocol Heparin Sodium (Porcine) 5,000 unit 08/15/24 21:00 08/22/24 11:21 Heparin Sod Inj 5000 Unit/Ml Vial SC 08/29/24 20:59 Not Given Q12HR JADE Heparin Sodium (Porcine) 3,500 unit 08/18/24 10:55 08/22/24 10:43 Heparin Sod Inj 1000 Unit/Ml Vial 10 Ml INDWELLCAT 3,500 unit PRN PRN Administration DIALYSIS Hydromorphone HCl 0.5 mg 08/19/24 16:25 08/22/24 16:36 Hydromorphone Inj 2 Mg/Ml Vial IVP 08/24/24 17:59 0.5 mg Q2HR PRN Administration BREAKTHROUGH PAIN (SEVERE) Albumin Human 25 gm in 100 mls @ 100 mls/hr 08/16/24 11:44 08/22/24 08:50 Albuminar-25 Ivpb IV 100 mls/hr PRN PRN Administration DIALYSIS Ampicillin Sodium/Sulbactam 100 mls @ 200 mls/hr 08/21/24 08:15 08/23/24 21:10 Sodium 3 gm/ Sodium Chloride IV 08/28/24 08:14 Infused Q12H [facility] Infusion Lidocaine 1 patch 08/17/24 11:30 08/23/24 09:55 Lidocaine 5% 1 Patch TOP 09/16/24 11:29 Not Given DAILY JADE Megestrol Acetate 400 mg 08/15/24 15:30 08/24/24 09:55 Megestrol Acet Susp 400 Mg/10 Ml Udc PO 09/14/24 15:29 400 mg DAILY JADE Administration Metoprolol Succinate 50 mg 08/19/24 09:00 08/22/24 13:05 Metoprolol Succinate Xl 25 Mg Tabcr PO 09/18/24 08:59 Not Given QDAY JADE Midodrine 5 mg 08/23/24 07:45 08/24/24 05:12 Midodrine 5 Mg Tablet PO 09/22/24 07:44 Not Given TID JADE Mirtazapine 15 mg 08/19/24 21:00 08/23/24 20:40 Mirtazapine 15 Mg Tablet PO 09/18/24 20:59 15 mg HS JADE Administration Morphine Sulfate 10 mg 08/19/24 21:00 08/24/24 09:55 Morphine Sulf Liqd 10 Mg/5 Ml Udc PO 08/24/24 20:59 10 mg Q12HR JADE Administration Ondansetron HCl 4 mg 08/15/24 14:57 08/18/24 09:44 Ondansetron Inj 2 Mg/Ml Inj 2 Ml IV 09/14/24 14:56 4 mg Q6HR PRN Administration NAUSEA OR VOMITING Protocol Oxycodone HCl 5 mg 08/23/24 05:12 08/23/24 22:56 Oxycodone Hcl 5 Mg Ir Tab PO 08/28/24 05:11 5 mg Q6HR PRN Administration PAIN SCALE 4-10(Mod-Sev Pantoprazole Sodium 40 mg 08/16/24 09:00 08/23/24 09:58 Pantoprazole Inj 40 Mg Vial IVP 09/15/24 08:59 Not Given QDAY JADE Plan Patient is a 74-year-old male with past medical history of CAD status post stent placement, malignant pericardial effusion, gastric adenocarcinoma with metastasis who presented to the ED initially for urinary retention. Cardiology was consulted for reassessment of pericardial effusion. #Moderate pericardial effusion in the setting of metastatic esophageal carcinoma #Paroxysmal A-fib #CAD status post stent EKG showed normal sinus rhythm. Jack Vascor 2. Echocardiogram showed small to moderate pericardial effusion near the right atrium but no evidence of cardiac tamponade. Ejection fraction 60 to 65%. Moderate RV dilatation, with RVSP at 64 mmHg, pleural effusion present, and IVC dilated. -At this time, pericardiocentesis not indicated continue with amiodarone 200 mg daily, metoprolol 50 mg daily -Continue to monitor signs and symptoms on telemetry -Heparin subcu currently held by primary team Rest of plan as per primary team #History of gastric carcinoma with gastric outlet obstruction #Pericardial effusion #CAP #Leukocytosis-improving #Pleural effusion s/p thoracentesis #Hypertension?resolved #Abnormal blood pressure readings #Acute metabolic encephalopathy?resolved #Acute renal failure #Electrolyte imbalance?resolved #Anion gap metabolic acidosis?resolving #Elevated lactic acidosis #History of BPH Patient's plan and care discussed with my attending, Dr. Tj Stern MD PGY-2
[2024-08-24] MEDS: ALBUMIN HUMAN 25% IVPB 25 GM/100 ML BTL IV (15:01)
--- NOTE | 2024-08-24 15:02 | PC.SS ---
Hospice referral submitted on [facility] [place]. Preferred hospice agency is [place].
--- NOTE | 2024-08-24 15:49 | EKG_ITS ---
[facility] Test Date: 2024-08-24 Pat Name: JUAN ANTONIO COELLO [facility] Paramedic Instructor: DONA : 1950 Requested By: Blessing Robles Order Number: [id number] Reading MD: Blessing Robles Measurements Intervals [place] Rate: 98 P: 71 OR: 140 QRS: -63 QRSD: 161 T: 43 QT: 407 QTc: 521 Interpretive Statements SINUS RHYTHM WITH OCCASIONAL VENTRICULAR PREMATURE COMPLEXES MARKED LEFT AXIS DEVIATION RIGHT BUNDLE BRANCH BLOCK SEPTAL MYOCARDIAL INFARCTION , OF INDETERMINATE AGE Compared to ECG 08/23/2024 18:12:36 Myocardial infarct finding now present /store/S0/[id number]/ecg/[id number].pdf
--- NOTE | 2024-08-24 15:49 | XR_ITS ---
Examination: AP chest single view Technique one AP portable semiupright chest single view Exam date and time: August 24, 2024 1615 hrs. Comparison August 21, 2024 Indications: Hyperkalemia SOB today. Findings: Prominent CHF Suspicious for superimposed pneumonia right lung Right internal jugular Port-A-Cath and left internal jugular dialysis catheter tips SVC satisfactory position Enlarged cardiac contour with prominent vascular congestion and perihilar edema Moderate osteopenia Impression: Prominent CHF Superimposed pneumonia right lung
[2024-08-24] MEDS: HEPARIN SOD INJ 1000 UNIT/ML VIAL 10 ML 3500 UNIT INDWELLCAT (15:56)
--- NOTE | 2024-08-24 15:58 | ESPR_ITS ---
<Statement entered by Madhuri Peters MD - 08/24/24 20:35> Patient was examined at bedside this morning , in the presence of his and daughter. His prognosis was explained and patient agreed to pursue home hospice. Later in the day while on dialysis rapid response was called secondary to altered mental status. Stat labs were ordered. Which showed increasing lactic acid, pH of 7.17 .Xray showing superimposed pneumonia. His condition was explained to the family members that he is detorating and he might need Bipap which the patient is less likely to tolerate at this time. they wanted time to decidwe about Bipap/high flow. Patient is going on home hospice tomorrow I discussed with and supervised my co-resident involved in the care of this patient. I agree with the assessment and plan as documented above. Madhuri Peters,PGY-3 Disclaimer: Despite multiple revisions, due to the dictation software being used, the document below may not be free of grammatical errors including phonetic/typographic errors. However, this does not deter from our commitment to providing health care in the patient's best interest in mind Documentation for date of: 08/24/24 Subjective Subjective Interval history: Patient was seen at bedside this morning. No overnight events. Patient scheduled for hemodialysis today and had discussion with family about goals of care at this time. Echo showed small to moderate pericardial effusion, but no evidence of cardiac tamponade therefore cardiology did not deem pericardiocentesis necessary at this time. Patient's family and patient decided to pursue hospice at this time, therefore will arrange for home hospice. No other complaints at this time. Exam Vital Signs Temp Pulse Resp BP Pulse Ox O2 Del Method O2 Flow Rate 98 F 100 22 H 141/65 H 97 Oxy Mask 8 08/24/24 15:21 08/24/24 15:45 08/24/24 15:21 08/24/24 15:45 08/24/24 15:21 08/24/24 12:00 08/24/24 15:21 FiO2 8 08/24/24 15:21 Narrative Exam General: A/O x3, mild respiratory distress Eyes: PERRL, EOMI. Anicteric, vision grossly intact. Ears: No ear pain, no ear discharge, Hearing grossly intact. Nose: No nasal discharge. Mouth/Throat: Dry mucous membranes, no redness, no lesions. Neck: Neck supple, non-tender, no cervical lymphadenopathy. Lungs: Clear EL to auscultation and percussion,Increased work of breathing Cardio: Normal S1/S2, regular rhythm, no murmurs, no JVD Abdomen: Soft, non-tender, no palpable masses, peristalsis present, no guarding or rebound. Extremities: Symmetrical, no significant deformities, 2+ peripheral edema , non-tender, peripheral pulses presents. Skin: No rashes, no lesions, warm to touch. Neuro: No focal neurological deficits. Objective Labs 08/25/24 06:20 08/25/24 06:20 Labs: Laboratory Results - last 24 hr 08/24/24 04:31 WBC 19.2 H RBC 3.76 L Hgb 10.6 L Hct 33.9 L MCV 90 MCH 28.2 MCHC 31.3 RDW Std Deviation 57.1 H Plt Count 128 L D Neut % (Auto) 77 Lymph % (Auto) 6 L [place] % (Auto) 6 Eos % (Auto) 1 Baso % (Auto) 1 Neut # (Auto) 14.8 H Lymph # (Auto) 1.1 [place] # (Auto) 1.2 H Eos # (Auto) 0.1 Baso # (Auto) 0.2 Immature Gran # (Auto) 1.86 H Absolute Nucleated RBC 0.33 H Immature Gran % 10 H Nucleated RBC % 2 H Sodium 136 Potassium 5.1 D Chloride 98 Carbon Dioxide 19.1 L Anion Gap 19 H BUN 55 H Creatinine 3.9 H D Estim Creat Clear Calc 15.9 L eGFR 16 L BUN/Creatinine Ratio 14 Glucose 73 L Calculated Osmolality 286 Calcium 9.0 ABG Interpretation ABG results: 08/21/24 10:24 VBG pH 7.27 L VBG pCO2 42 VBG pO2 41 VBG Base Excess -7 L Quality Measures Quality Measures VTE prophylaxis Advance care planning discussed with:: patient, spouse and child Assessment & Plan Assessment Current Active Medications: Generic Name Dose Route Start Last Admin Trade Name Freq PRN Reason Stop Dose Admin Acetaminophen 650 mg 08/16/24 08:35 08/19/24 22:19 Acetaminophen 325 Mg Tablet PO 09/14/24 13:53 650 mg Q6H PRN Administration Fever >100.3 or pain (1-3) Albuterol/Ipratropium 3 ml 08/18/24 07:00 08/24/24 12:43 Albuterol/Ipratropium (Duoneb) Rt Zamzam 3 Ml Nebu INH 09/17/24 06:59 Not Given Q6HRRT JADE Albuterol/Ipratropium 3 ml 08/18/24 01:57 08/22/24 10:06 Albuterol/Ipratropium (Duoneb) Rt Zamzam 3 Ml Nebu INH 09/17/24 02:59 3 ml Q4HRRT PRN Administration Wheezing Amiodarone HCl 200 mg 08/15/24 15:30 08/23/24 09:55 Amiodarone Hcl 200 Mg Tablet PO 09/14/24 15:29 Not Given DAILY JADE Calcium Carbonate 600 mg 08/16/24 09:00 08/23/24 09:55 Calcium Carbonate 600 Mg Tablet PO 09/15/24 08:59 Not Given QDAY JADE Docusate Sodium 100 mg 08/15/24 15:13 08/18/24 03:20 Docusate Sod Liqd 100 Mg/10 Ml Udc PO 09/14/24 20:59 100 mg BID PRN Administration constipation Protocol Heparin Sodium (Porcine) 5,000 unit 08/15/24 21:00 08/22/24 11:21 Heparin Sod Inj 5000 Unit/Ml Vial SC 08/29/24 20:59 Not Given Q12HR JADE Hydromorphone HCl 0.5 mg 08/19/24 16:25 08/22/24 16:36 Hydromorphone Inj 2 Mg/Ml Vial IVP 08/24/24 17:59 0.5 mg Q2HR PRN Administration BREAKTHROUGH PAIN (SEVERE) Ampicillin Sodium/Sulbactam 100 mls @ 200 mls/hr 08/21/24 08:15 08/23/24 21:10 Sodium 3 gm/ Sodium Chloride IV 08/28/24 08:14 Infused Q12H JADE Infusion Lidocaine 1 patch 08/17/24 11:30 08/23/24 09:55 Lidocaine 5% 1 Patch TOP 09/16/24 11:29 Not Given DAILY JADE Megestrol Acetate 400 mg 08/15/24 15:30 08/24/24 09:55 Megestrol Acet Susp 400 Mg/10 Ml Udc PO 09/14/24 15:29 400 mg DAILY JADE Administration Metoprolol Succinate 50 mg 08/19/24 09:00 08/22/24 13:05 Metoprolol Succinate Xl 25 Mg Tabcr PO 09/18/24 08:59 Not Given QDAY JADE Midodrine 5 mg 08/23/24 07:45 08/24/24 05:12 Midodrine 5 Mg Tablet PO 09/22/24 07:44 Not Given TID JADE Mirtazapine 15 mg 08/19/24 21:00 08/23/24 20:40 Mirtazapine 15 Mg Tablet PO 09/18/24 20:59 15 mg HS JADE Administration Morphine Sulfate 10 mg 08/19/24 21:00 08/24/24 09:55 Morphine Sulf Liqd 10 Mg/5 Ml Udc PO 08/24/24 20:59 10 mg Q12HR JADE Administration Ondansetron HCl 4 mg 08/15/24 14:57 08/18/24 09:44 Ondansetron Inj 2 Mg/Ml Inj 2 Ml IV 09/14/24 14:56 4 mg Q6HR PRN Administration NAUSEA OR VOMITING Protocol Oxycodone HCl 5 mg 08/23/24 05:12 08/23/24 22:56 Oxycodone Hcl 5 Mg Ir Tab PO 08/28/24 05:11 5 mg Q6HR PRN Administration PAIN SCALE 4-10(Mod-Sev Pantoprazole Sodium 40 mg 08/16/24 09:00 08/23/24 09:58 Pantoprazole Inj 40 Mg Vial IVP 09/15/24 08:59 Not Given QDAY JADE Plan 74-year-old male with past medical history of 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 #Acute metabolic encephalopathy #Hx gastric carcinoma with gastric outlet obstruction Diagnosis made 06/2024. 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 Patient has been following with Dr. Guevara on oncology. Currently has port cath placed for chemotherapy. ?Initially came in experiencing decreased appetite, fatigue, dysphagia. Poor oral intake with significant weight loss. ?Family and patient have decided to proceed with hospice at this time Plan: ?Oral morphine 10 mg p.o. every 12 and oxycodone 5 mg p.o. every 6 as needed for pain ?Continue Megestrol for appetite stimulant ? Continue Zofran 4 mg every 6 hours as needed for nausea ? Continue pantoprazole 40 mg IV daily ? Consulted oncology, appreciate recommendations ? Hospice referral ? Referred to dietitian ? Aspiration precautions #Acute renal failure -Patient prior to admission was likely having poor oral intake secondary to gastric carcinoma and tumor obstructing the esophagus. -Baseline creatinine is 0.9 on 07/31/2024 -CT abdomen pelvis showed no findings of urinary retention, bladder expansion, no significant prostatomegaly. -EKG showed normal sinus rhythm with first-degree AV block, peaking of Twaves, negative troponins. Plan ?Avoid nephrotoxins ? Renal dose medication ? Continue hemodialysis as scheduled ?Nephrology consulted, appreciate recommendations #Hypocalcemia, resolved #Hypermagnesemia, resolved #Hyperkalemia, resolved -At the time of admission, calcium 7.1, magnesium 3.5, potassium is 6.7 -Likely due to combined poor oral intake and PILAR -Potassium 5.1, chloride 98, and calcium 8.7 today Plan -Expect correction with hemodialysis -Will continue to monitor electrolytes and manage accordingly. #High anion gap metabolic acidosis # Lactic acidosis ?Most likely in the setting of underlying kidney failure. ?Admission lactic acidosis 5.9 and increased to 7.9 -Bicarb 19.1 today Plan -Patient on hemodialysis -Will continue to monitor labs # Community-acquired pneumonia ?Initial abdomen/pelvis CT on 08/15/2024 showed bibasilar pneumonia ? Chest x-ray on 08/21/2024 showed significant right lung pneumonia ? Chest x-ray on 08/22/2024 showed bilateral pneumonia Plan: -Unasyn [ 08/21/2024?] ?Continue oxygen administration as needed ? Will continue to monitor #Hypotension -Continue midodrine 5 mg twice daily -Hold all antihypertensives #Hx atrial fibrillation, rate controlled EKG showed mild normal sinus rhythm. -Jack vasc score 2 -continue amiodarone 200 mg daily ?Metoprolol succinate on hold due to soft blood pressure Disposition: Patient admitted to telemetry. Diet: dysphagia GI prophylaxis: protonix DVT prophylaxis: Heparin sc Code: DNR Case disclosed with Attending Dr. Anna and My senior Dr. Peters PGY3. Nacho Clemons PGY1 Attending Provider Attestation/Addendum I have discussed and was present for the essential components of the history, physical examination, diagnosis, and treatment plan with the resident. I agree with the patient's care as documented by the resident and amended herein by me. Jaswinder Anna DO. Patient seen and evaluated this AM. The patient has decided on home with hospice, him and his family are in agreement. Social work notified. Patient will have dialysis today and be discharged on dialysis, likely DC tomorrow to home with home hospice. Although this document has been carefully reviewed, there may still be some phonetic and other typographical errors. These errors are purely grammatical due to imperfections in the software program and should not be construed in any way to compromise the substance of the patient's medical care during this visit.
--- NOTE | 2024-08-24 15:58 | PD.RESEVENT ---
Documentation for date of: 08/24/24 Event Note Event Note: Rapid response was calledaround 3:50 PM today due to altered mental status at the end of patient's hemodialysis. Patient was unable to follow commands at this time and was barely arousable to sternal rub. This has happened in the past after patient has had hemodialysis, but chest x-ray and labs were ordered including CBC, CMP, mag, Phos, and bedside glucose. At the time patient's right patient was admitted his blood pressure was 114/66 and heart rate was in the 101. Family was updated at bedside afterwards. Case disclosed with Attending Dr. Shoshana Clemons PGY1
[2024-08-24 16:28] LABS: Basophils # (Auto) 0.1 Thou/mm3 (0.0-0.2); Basophils % (Auto) 1 % (0-2.5); Eosinophils # (Auto) 0.1 Thou/mm3 (0.0-0.5); Eosinophils % (Auto) 0 % (0-10); Hematocrit 30.7 % (41.0-53.0); Hemoglobin 9.7 g/dL (13.5-16.0); Immature Granulocytes % (Auto) 10 % (0-0); Immature Granulocytes Auto 1.87 Thou/mm3 (0.00-0.00); Lymphocytes # (Auto) 0.9 Thou/mm3 (1.0-4.8); Lymphocytes % (Auto) 5 % (10-50); Mean Corpuscular HGB Conc 31.6 g/dl (31.0-37.0); Mean Corpuscular Hemoglobin 28.4 pg (25.0-35.0); Mean Corpuscular Volume 90 fL (80-100); Monocytes # (Auto) 1.5 Thou/mm3 (0.0-0.8); Monocytes % (Auto) 8 % (0-12); Neutrophils # (Auto) 15.2 Thou/mm3 (1.8-7.7); Neutrophils % (Auto) 77 % (37-80); Nucleated Red Blood Cell # 0.41 Thou/mm3 (0.00-0.00); Nucleated Red Blood Cell % 2 /100 WBC (0); Platelet Count 120 Thou/mm3 (140-440); RDW Standard Deviation 56.5 fL (35.1-43.9); Red Blood Count 3.42 Miln/mm3 (4.50-5.90); White Blood Count 19.7 Thou/mm3 (3.8-10.6)
[2024-08-24 16:29] LABS: Lactate (Lactic Acid) 5.3 mMol/L (0.4-2.0)
--- NOTE | 2024-08-24 16:30 | PC.NURSE ---
Dialysis completed for 3 hrs. Post tx VS stable BP 114/56, HR 101, O2 sat 96-97% on O2 at 8L/min via oxy mask. Called CHILDREN'S AIDE due to pt hard waking up. BS check was 83. Per MD pt ok to go back to patient room. Report given to Ciera CHÁVEZ
[2024-08-24 16:38] LABS: Base Excess -5 (-3-3); HCO3 25 mEq/L (20-26); Inspired O2, VO2 Liters 10 L/min; Inspired Oxygen, FIO2 21 %; O2 Saturation 98 % (91-98); PCO2 68 mmHg (32.0-48.0); PO2 93 mmHg (83-108)
[2024-08-24 16:42] LABS: Allen Test Not Performed; Puncture Site Right Radial; pH, Arterial 7.17 (7.35-7.45)
[2024-08-24 17:25] LABS: Alanine Aminotransferase 21 U/L (10-49); Albumin, Serum 3.9 gm/dL (3.4-4.8); Albumin/Globulin Ratio 1.8 (1.2-2.2); Alkaline Phosphatase 364 U/L (46-116); Anion Gap 14 (7-16); Aspartate Amino Transferase 33 U/L (0-34); BUN/Creatinine Ratio 12 Ratio (12-20); Bilirubin,Total 0.4 mg/dL (0.3-1.2); Blood Urea Nitrogen 26 mg/dL (9-23); Calcium 8.6 mg/dL (8.3-10.6); Calcium (Corrected) 8.7 mg/dL (8.5-10.1); Carbon Dioxide 24.1 mMol/L (20.0-31.0); Chloride 98 mMol/L (98-107); Creatinine (Component) 2.1 mg/dL (0.6-1.3); Estimated Creatinine Clearance 29.6 mL/min (>60); Globulin 2.2 gm/dL (2.3-3.5); Glucose 73 mg/dL (74-106); Osmolality,Calculated 275 (275-295); Potassium 3.9 mMol/L (3.4-5.1); Sodium 136 mMol/L (136-145); Total Protein 6.1 gm/dL (5.7-8.2); Troponin I 0.026 ng/mL (0.0-0.045); eGFR 33 See Note
[2024-08-24 19:20] LABS: Reflex Lactate? Y
[2024-08-24] MEDS: AMPICILLIN/SULBAC INJ 3 GM in SODIUM CHLORIDE 0.9% (P) 100 ML IV (19:39)
[2024-08-24 20:14] LABS: Lactic Acid, 3 HR 5.5 mMol/L (0.4-2.0)
[2024-08-24] MEDS: MIRTAZAPINE 15 MG TABLET PO (20:36)
[2024-08-24] MEDS: oxyCODONE HCL 5 MG IR TAB PO (22:54)
[2024-08-24] MEDS: DOCUSATE SOD LIQD 100 MG/10 ML UDC PO (23:24)
[2024-08-25] VITALS (15 sets, daily range): BP systolic 107–132; BP diastolic 54–67; PULSE 96–110; RESP 16–26; TEMP 36.1–36.7; O2SAT 92–98
[2024-08-25] MEDS: ALBUTEROL/IPRATROPIUM (Duoneb) RT SOL 3 ML NEBU INH ×2 (00:02→06:27)
[2024-08-25 03:01] LABS: Lactate (Lactic Acid) 5.3 mMol/L (0.4-2.0)
[2024-08-25] MEDS: SODIUM CHLORIDE 0.9% 500 ML 500 ML 999 ML IV (03:49)
--- NOTE | 2024-08-25 03:55 | PC.NURSE ---
Called MD Taylor to clarify order for NS Bolus 500 mL. He confirmed it is for his elevated lactic acid
--- NOTE | 2024-08-25 05:32 | PC.NURSE ---
MD Floyd notified that patient's BP on both arms is different. The Left arm is reading 132/62 and the Right arm 78/60. said to ok to hold the midodrine and to give the oxycodone IR for pain.
[2024-08-25] MEDS: oxyCODONE HCL 5 MG IR TAB PO ×2 (05:40→13:27)
[2024-08-25 05:59] LABS: Reflex Lactate? Y
[2024-08-25 06:44] LABS: Basophils # (Auto) 0.1 Thou/mm3 (0.0-0.2); Basophils % (Auto) 0 % (0-2.5); Eosinophils # (Auto) 0.1 Thou/mm3 (0.0-0.5); Eosinophils % (Auto) 1 % (0-10); Hematocrit 32.2 % (41.0-53.0); Hemoglobin 9.9 g/dL (13.5-16.0); Immature Granulocytes % (Auto) 6 % (0-0); Immature Granulocytes Auto 1.15 Thou/mm3 (0.00-0.00); Lymphocytes # (Auto) 0.9 Thou/mm3 (1.0-4.8); Lymphocytes % (Auto) 5 % (10-50); Mean Corpuscular HGB Conc 30.7 g/dl (31.0-37.0); Mean Corpuscular Volume 91 fL (80-100); Monocytes # (Auto) 0.9 Thou/mm3 (0.0-0.8); Monocytes % (Auto) 5 % (0-12); Neutrophils # (Auto) 15.2 Thou/mm3 (1.8-7.7); Neutrophils % (Auto) 83 % (37-80); Nucleated Red Blood Cell # 0.33 Thou/mm3 (0.00-0.00); Nucleated Red Blood Cell % 2 /100 WBC (0); Platelet Count 134 Thou/mm3 (140-440); Red Blood Count 3.54 Miln/mm3 (4.50-5.90); White Blood Count 18.3 Thou/mm3 (3.8-10.6)
[2024-08-25 06:45] LABS: Lactate (Lactic Acid) 5.6 mMol/L (0.4-2.0)
[2024-08-25 07:18] LABS: Alanine Aminotransferase 22 U/L (10-49); Albumin, Serum 3.8 gm/dL (3.4-4.8); Albumin/Globulin Ratio 1.7 (1.2-2.2); Alkaline Phosphatase 355 U/L (46-116); Anion Gap 18 (7-16); Aspartate Amino Transferase 36 U/L (0-34); BUN/Creatinine Ratio 13 Ratio (12-20); Bilirubin,Total 0.4 mg/dL (0.3-1.2); Blood Urea Nitrogen 38 mg/dL (9-23); Calcium 8.8 mg/dL (8.3-10.6); Chloride 97 mMol/L (98-107); Creatinine (Component) 2.9 mg/dL (0.6-1.3); Estimated Creatinine Clearance 21.3 mL/min (>60); Globulin 2.3 gm/dL (2.3-3.5); Glucose 55 mg/dL (74-106); Magnesium 2.1 mg/dL (1.6-2.6); Osmolality,Calculated 278 (275-295); Phosphorous 5.4 mg/dL (2.4-5.1); Potassium 4.6 mMol/L (3.4-5.1); Sodium 136 mMol/L (136-145); Total Protein 6.1 gm/dL (5.7-8.2); eGFR 22 See Note
[2024-08-25 08:50] LABS: Base Excess, Venous -8 (-3-3); O2 Saturation, Venous 91 % (96-97); PCO2, Venous 42 mmHg (36-56); PO2, Venous 54 mmHg (15-58); pH, Venous 7.26 (7.33-7.66)
[2024-08-25] MEDS: AMPICILLIN/SULBAC INJ 3 GM in SODIUM CHLORIDE 0.9% (P) 100 ML IV (09:31)
[2024-08-25] MEDS: MEGESTROL ACET SUSP 400 MG/10 ML UDC PO (09:32)
[2024-08-25] MEDS: PANTOPRAZOLE INJ 40 MG VIAL IVP (09:32)
[2024-08-25] MEDS: AMIODARONE HCL 200 MG TABLET PO (09:32)
[2024-08-25] MEDS: CALCIUM CARBONATE 600 MG TABLET PO (09:32)
[2024-08-25 09:39] LABS: Reflex Lactate? Y
--- NOTE | 2024-08-25 10:27 | PD.NEPHPROG ---
Documentation for date of: 08/25/24 Subjective Subjective Interval history: Mr. Da Silva is a 74-year-old male with past medical history of A-fib (rate controlled on amiodarone), BPH, hypertension, hyperlipidemia, insomnia, history of gastric carcinoma with esophageal obstruction, pericardial effusion status post pericardiocentesis who presented to ED on 08/15 after experiencing urinary retention. 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 Underwent pericardiocentesis. During this admission he presented with symptoms of urinary retention have been ongoing since past 12 hours. Patient was confused, history obtained from family at bedside who stated that patient has had poor oral intake with difficulty swallowing due to obstruction. Has had significant weight loss and dysphagia. Patient denies any dysuria but endorses difficulty in maintaining stream. He is compliant with BPH medications. Oncologist Dr. Guevara has been following patient since previous discharge. Patient has Port-A-cath placed in preparation for chemotherapy. He denies any constipation, diarrhea, blood in the stool, abdominal pain, fever, or chills. Endorses weakness. At home, diet consists of soft foods and little pieces. No issues of aspiration. ED course significant for, vitals of blood pressure 108/59, pulse 75, 92% O2 on room air. ED labs revealed WBC 8.1, hemoglobin 11.4, platelets 228, hyponatremic 128, hyperkalemic 6.7, bicarb 17.2, AG 20, Cr 6.7, lactic acid 5.9, corrected calcium 7.0, magnesium 3.5, ALP 710, BNP 512, procalcitonin 0.99. UA negative. EKG showed normal sinus rhythm with first-degree AV block, peaking of Twaves, negative troponins. Chest x-ray bilateral pneumonia more severe in right lung. CT abdomen pelvis showing bibasilar pneumonia, cirrhosis, no significant prostatomegaly. In ED patient was given calcium carbonate x 1, 2 L bolus normal saline, 5 units regular insulinAmp D5W, Rocephin times 1 g x 1, azithromycin 500 mg x 1. Stat repeat CMP no significant improvement of potassium at 6.4, worsening acidosis bicarb 14.8, creatinine 6.5 calcium 7.1, 3 mag 3.5. Repeat lactic acid elevated to 7.9. Patient admitted for managemenet of PILAR in setting of urinary retention/poor oral intake and hyperkalemia. Nephrology consulted for same. Home medications amiodarone 200 mg p.o. daily metoprolol succinate 50 twice daily, Lasix 40 daily, lidocaine patch, citalopram 40 mg p.o. daily, famotidine 20 mg, trazodone 100 mg, mirtazapine 15 mg, finasteride 5 mg, rosuvastatin 40 mg, tamsulosin 0.4 mg Nephrology was consulted for PILAR on CKD, patient has had minimal urine output in setting of acute renal failure and poor oral intake, patient' mentation has worsened compared to admission, more confused, discussed with family agreeable to start dialysis, patient will receive dialysis today after temporary dialysis catheter placement. Discussed with ICU team to assist with placement of temporary catheter. Patient's potassium continues to remain elevated. 08/23/2023 patient currently seen in medical floor. Just came back from liver biopsy. Daughter and at bedside. Left arm swollen. Doppler ultrasound ordered by medical team. CT scan abdomen with contrast done by medical team.WBC 16.6, hemoglobin 9.4, platelets 91. Sodium 136, potassium 4.5, BUN 48, creatinine 3.2, Doppler ultrasound showed no DVT. CT abdomen with contrast showed widespread metastatic disease and hepatic lesions. Liver biopsy was done. 08/25/2023 patient currently seen in medical floor. Family agreed for him to go to home with hospice. Currently on high flow oxygen. Prognosis remains poor. Hold off on dialysis. Labs, medications have been reviewed. Review of Systems Review of Systems ROS Unobtainable: unobtainable due to mental status Exam Vital Signs Temp Pulse Resp BP Pulse Ox O2 Del Method O2 Flow Rate 36.7 C 105 H 24 H 107/61 94 L High Flow Nasal Cannula 18 08/25/24 08:00 08/25/24 10:20 08/25/24 10:20 08/25/24 09:32 08/25/24 10:20 08/25/24 08:00 08/25/24 10:20 FiO2 75 08/25/24 10:20 Narrative Exam GENERAL APPEARANCE: Patient very cachectic. Lost weight. Temporal wasting noted. NECK: Neck supple, no JVD or bruit CARDIOVASCULAR: Heart regular, no murmurs LUNGS/CHEST: Few rhonchi noted bilaterally ABDOMEN: Soft, nontender, nondistended. No masses. Normal bowel sounds. EXTREMITIES: No edema, clubbing or cyanosis. SKIN: Left IJ PermCath. MUSCULOSKELETAL: Significant functional decline/gait imbalance NEUROLOGICAL : Alert and awake Objective Labs 08/25/24 06:20 08/25/24 06:20 Labs: Laboratory Results - last 24 hr 08/24/24 08/24/24 08/24/24 16:07 16:27 19:34 WBC 19.7 H RBC 3.42 L Hgb 9.7 L Hct 30.7 L MCV 90 MCH 28.4 MCHC 31.6 RDW Std Deviation 56.5 H Plt Count 120 L Neut % (Auto) 77 Lymph % (Auto) 5 L [place] % (Auto) 8 Eos % (Auto) 0 Baso % (Auto) 1 Neut # (Auto) 15.2 H Lymph # (Auto) 0.9 L [place] # (Auto) 1.5 H Eos # (Auto) 0.1 Baso # (Auto) 0.1 Immature Gran # (Auto) 1.87 H Absolute Nucleated RBC 0.41 H Immature Gran % 10 H Nucleated RBC % 2 H Puncture Site Right Radial ABG pH 7.17 L* ABG pCO2 68 H ABG pO2 93 ABG HCO3 25 ABG O2 Saturation 98 ABG Base Excess -5 L VBG pH VBG pCO2 VBG pO2 VBG O2 Sat ([place]) VBG Base Excess Oxygen Liter Flow 10 FiO2 21 Sodium 136 Potassium 3.9 D Chloride 98 Carbon Dioxide 24.1 Anion Gap 14 BUN 26 H Creatinine 2.1 H D Estim Creat Clear Calc 29.6 L eGFR 33 L BUN/Creatinine Ratio 12 Glucose 73 L Calculated Osmolality 275 Lactic Acid 5.3 H* 5.5 H* Calcium 8.6 Corrected Calcium 8.7 Phosphorus Magnesium Total Bilirubin 0.4 AST 33 ALT 21 Alkaline Phosphatase 364 H Troponin I 0.026 Total Protein 6.1 Albumin 3.9 Globulin 2.2 L Albumin/Globulin Ratio 1.8 08/25/24 08/25/24 08/25/24 02:54 06:20 08:40 WBC 18.3 H RBC 3.54 L Hgb 9.9 L Hct 32.2 L MCV 91 MCH 28.0 MCHC 30.7 L RDW Std Deviation 58.0 H Plt Count 134 L Neut % (Auto) 83 H Lymph % (Auto) 5 L [place] % (Auto) 5 Eos % (Auto) 1 Baso % (Auto) 0 Neut # (Auto) 15.2 H Lymph # (Auto) 0.9 L [place] # (Auto) 0.9 H Eos # (Auto) 0.1 Baso # (Auto) 0.1 Immature Gran # (Auto) 1.15 H Absolute Nucleated RBC 0.33 H Immature Gran % 6 H Nucleated RBC % 2 H Puncture Site ABG pH ABG pCO2 ABG pO2 ABG HCO3 ABG O2 Saturation ABG Base Excess VBG pH 7.26 L VBG pCO2 42 VBG pO2 54 VBG O2 Sat ([place]) 91 L VBG Base Excess -8 L Oxygen Liter Flow FiO2 Sodium 136 Potassium 4.6 D Chloride 97 L Carbon Dioxide 21.0 Anion Gap 18 H BUN 38 H Creatinine 2.9 H D Estim Creat Clear Calc 21.3 L eGFR 22 L BUN/Creatinine Ratio 13 Glucose 55 L Calculated Osmolality 278 Lactic Acid 5.3 H* 5.6 H* Calcium 8.8 Corrected Calcium 9.0 Phosphorus 5.4 H Magnesium 2.1 Total Bilirubin 0.4 AST 36 H ALT 22 Alkaline Phosphatase 355 H Troponin I Total Protein 6.1 Albumin 3.8 Globulin 2.3 Albumin/Globulin Ratio 1.7 08/25/24 09:30 WBC RBC Hgb Hct MCV MCH MCHC RDW Std Deviation Plt Count Neut % (Auto) Lymph % (Auto) [place] % (Auto) Eos % (Auto) Baso % (Auto) Neut # (Auto) Lymph # (Auto) [place] # (Auto) Eos # (Auto) Baso # (Auto) Immature Gran # (Auto) Absolute Nucleated RBC Immature Gran % Nucleated RBC % Puncture Site ABG pH ABG pCO2 ABG pO2 ABG HCO3 ABG O2 Saturation ABG Base Excess VBG pH VBG pCO2 VBG pO2 VBG O2 Sat ([place]) VBG Base Excess Oxygen Liter Flow FiO2 Sodium Potassium Chloride Carbon Dioxide Anion Gap BUN Creatinine Estim Creat Clear Calc eGFR BUN/Creatinine Ratio Glucose Calculated Osmolality Lactic Acid 6.0 H* Calcium Corrected Calcium Phosphorus Magnesium Total Bilirubin AST ALT Alkaline Phosphatase Troponin I Total Protein Albumin Globulin Albumin/Globulin Ratio ABG Interpretation ABG results: 08/21/24 08/24/24 08/25/24 10:24 16:27 08:40 ABG pH 7.17 L* ABG pCO2 68 H ABG pO2 93 ABG HCO3 25 ABG O2 Saturation 98 ABG Base Excess -5 L VBG pH 7.27 L 7.26 L VBG pCO2 42 42 VBG pO2 41 54 VBG Base Excess -7 L -8 L Assessment & Plan Additional Assessment & Plan Additional Plan: Summary: Mr. Da Silva is a 74-year-old male PMH of A-fib rate controlled on amiodarone, BPH, hypertension, hyperlipidemia, insomnia, history of gastric carcinoma with esophageal obstruction, pericardial effusion status post pericardiocentesis who presented to ED today after experiencing urinary retention for more than 12 hours. Denies any abdominal pain, suprapubic pain, dysuria. Endorses decreased oral intake solids and liquids due to dysphagia of underlying gastric carcinoma and esophageal mass. Patient admitted for management of PILAR in setting of urinary retention/poor oral intake and hyperkalemia. Patient had continually decreased urine output, confusion and hyperkalemia, nephrology consulted, started patient on hemodialysis. #Acute renal failure secondary to ATN. Electrolyte imbalance corrected. Suspect prerenal azotemia leading towards ATN with decreased urine output-in the setting of gastric carcinoma and esophageal tumor obstruction. Patient has had poor oral intake including liquids. Significant weight loss in past month. Endorses no urinary output in past 12 hours. Denies any abdominal pain, suprapubic pain, dysuria. At home patient normally eats softened foods in small pieces with Ensure supplement. CT abdomen pelvis showed no findings of urinary retention, bladder expansion, no significant prostatomegaly. Spoke to daughter, -they want to take patient home with hospice. Currently on high flow oxygen #CAP #Hx gastric carcinoma with gastric outlet obstruction #Hx atrial fibrillation, rate controlled #Hx of possible hypotension #Hx BPH Management as per primary team Status post liver biopsy. Metastatic cancer. Prognosis poor. Family aware.
--- NOTE | 2024-08-25 10:39 | ESPR_ITS ---
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 Elena Stern agree with the treatment plan recommendations Patient's family agreed to have him placed in hospice care which appears to be reasonable. Documentation for date of: 08/25/24 Subjective Subjective Interval history: Patient seen and examined at bedside. Patient's lactic acid is currently 6. pH today was 7.26 with pCO2 of 42 on VBG. Patient is currently on high flow nasal cannula 15 to 18 L, and plans to go home with hospice per primary team. Exam Vital Signs Temp Pulse Resp BP Pulse Ox O2 Del Method O2 Flow Rate 98.1 F 105 H 24 H 107/61 94 L High Flow Nasal Cannula 18 08/25/24 08:00 08/25/24 10:20 08/25/24 10:20 08/25/24 09:32 08/25/24 10:20 08/25/24 08:00 08/25/24 10:20 FiO2 75 08/25/24 10:20 Narrative Exam General Appearance: Pt in mild acute distress in bed. Cachectic, ill-appearing. Lethargic. Able to answer some questions. On HFNC. HEENT: NC/AT, no scleral icterus, no conjunctival pallor, MMM Lungs: CTAB, no wheezes or crackles appreciated, no accessory muscle use noted. CVS: RRR, S1/S2 heard, no murmurs or rubs appreciated Chest: Left internal jugular PermCath intact ABD: Soft, non-tender, non-distended, BS + in all 4 quadrants EXT: no deformity/edema/lesions/cyanosis/clubbing, radial pulses 2+ BL, DP pulses 2 + BL SKIN: Skin exam normal without any rashes. Neuro: Alert and awake. No gross neurological deficits. Psych: Appropriate mood and affect Objective Labs 08/25/24 06:20 08/25/24 06:20 Labs: Laboratory Results - last 24 hr 08/24/24 08/24/24 08/24/24 16:07 16:27 19:34 WBC 19.7 H RBC 3.42 L Hgb 9.7 L Hct 30.7 L MCV 90 MCH 28.4 MCHC 31.6 RDW Std Deviation 56.5 H Plt Count 120 L Neut % (Auto) 77 Lymph % (Auto) 5 L [place] % (Auto) 8 Eos % (Auto) 0 Baso % (Auto) 1 Neut # (Auto) 15.2 H Lymph # (Auto) 0.9 L [place] # (Auto) 1.5 H Eos # (Auto) 0.1 Baso # (Auto) 0.1 Immature Gran # (Auto) 1.87 H Absolute Nucleated RBC 0.41 H Immature Gran % 10 H Nucleated RBC % 2 H Puncture Site Right Radial ABG pH 7.17 L* ABG pCO2 68 H ABG pO2 93 ABG HCO3 25 ABG O2 Saturation 98 ABG Base Excess -5 L VBG pH VBG pCO2 VBG pO2 VBG O2 Sat ([place]) VBG Base Excess Oxygen Liter Flow 10 FiO2 21 Sodium 136 Potassium 3.9 D Chloride 98 Carbon Dioxide 24.1 Anion Gap 14 BUN 26 H Creatinine 2.1 H D Estim Creat Clear Calc 29.6 L eGFR 33 L BUN/Creatinine Ratio 12 Glucose 73 L Calculated Osmolality 275 Lactic Acid 5.3 H* 5.5 H* Calcium 8.6 Corrected Calcium 8.7 Phosphorus Magnesium Total Bilirubin 0.4 AST 33 ALT 21 Alkaline Phosphatase 364 H Troponin I 0.026 Total Protein 6.1 Albumin 3.9 Globulin 2.2 L Albumin/Globulin Ratio 1.8 08/25/24 08/25/24 08/25/24 02:54 06:20 08:40 WBC 18.3 H RBC 3.54 L Hgb 9.9 L Hct 32.2 L MCV 91 MCH 28.0 MCHC 30.7 L RDW Std Deviation 58.0 H Plt Count 134 L Neut % (Auto) 83 H Lymph % (Auto) 5 L [place] % (Auto) 5 Eos % (Auto) 1 Baso % (Auto) 0 Neut # (Auto) 15.2 H Lymph # (Auto) 0.9 L [place] # (Auto) 0.9 H Eos # (Auto) 0.1 Baso # (Auto) 0.1 Immature Gran # (Auto) 1.15 H Absolute Nucleated RBC 0.33 H Immature Gran % 6 H Nucleated RBC % 2 H Puncture Site ABG pH ABG pCO2 ABG pO2 ABG HCO3 ABG O2 Saturation ABG Base Excess VBG pH 7.26 L VBG pCO2 42 VBG pO2 54 VBG O2 Sat ([place]) 91 L VBG Base Excess -8 L Oxygen Liter Flow FiO2 Sodium 136 Potassium 4.6 D Chloride 97 L Carbon Dioxide 21.0 Anion Gap 18 H BUN 38 H Creatinine 2.9 H D Estim Creat Clear Calc 21.3 L eGFR 22 L BUN/Creatinine Ratio 13 Glucose 55 L Calculated Osmolality 278 Lactic Acid 5.3 H* 5.6 H* Calcium 8.8 Corrected Calcium 9.0 Phosphorus 5.4 H Magnesium 2.1 Total Bilirubin 0.4 AST 36 H ALT 22 Alkaline Phosphatase 355 H Troponin I Total Protein 6.1 Albumin 3.8 Globulin 2.3 Albumin/Globulin Ratio 1.7 08/25/24 09:30 WBC RBC Hgb Hct MCV MCH MCHC RDW Std Deviation Plt Count Neut % (Auto) Lymph % (Auto) [place] % (Auto) Eos % (Auto) Baso % (Auto) Neut # (Auto) Lymph # (Auto) [place] # (Auto) Eos # (Auto) Baso # (Auto) Immature Gran # (Auto) Absolute Nucleated RBC Immature Gran % Nucleated RBC % Puncture Site ABG pH ABG pCO2 ABG pO2 ABG HCO3 ABG O2 Saturation ABG Base Excess VBG pH VBG pCO2 VBG pO2 VBG O2 Sat ([place]) VBG Base Excess Oxygen Liter Flow FiO2 Sodium Potassium Chloride Carbon Dioxide Anion Gap BUN Creatinine Estim Creat Clear Calc eGFR BUN/Creatinine Ratio Glucose Calculated Osmolality Lactic Acid 6.0 H* Calcium Corrected Calcium Phosphorus Magnesium Total Bilirubin AST ALT Alkaline Phosphatase Troponin I Total Protein Albumin Globulin Albumin/Globulin Ratio ABG Interpretation ABG results: 08/21/24 08/24/24 08/25/24 10:24 16:27 08:40 ABG pH 7.17 L* ABG pCO2 68 H ABG pO2 93 ABG HCO3 25 ABG O2 Saturation 98 ABG Base Excess -5 L VBG pH 7.27 L 7.26 L VBG pCO2 42 42 VBG pO2 41 54 VBG Base Excess -7 L -8 L Quality Measures Quality Measures VTE prophylaxis Advance care planning discussed with:: patient Assessment & Plan Assessment Current Active Medications: Generic Name Dose Route Start Last Admin Trade Name Freq PRN Reason Stop Dose Admin Acetaminophen 650 mg 08/16/24 08:35 08/19/24 22:19 Acetaminophen 325 Mg Tablet PO 09/14/24 13:53 650 mg Q6H PRN Administration Fever >100.3 or pain (1-3) Albuterol/Ipratropium 3 ml 08/18/24 07:00 08/25/24 06:27 Albuterol/Ipratropium (Duoneb) Rt Zamzam 3 Ml Nebu INH 09/17/24 06:59 3 ml Q6HRRT JADE Administration Albuterol/Ipratropium 3 ml 08/18/24 01:57 08/22/24 10:06 Albuterol/Ipratropium (Duoneb) Rt Zamzam 3 Ml Nebu INH 09/17/24 02:59 3 ml Q4HRRT PRN Administration Wheezing Amiodarone HCl 200 mg 08/15/24 15:30 08/25/24 09:32 Amiodarone Hcl 200 Mg Tablet PO 09/14/24 15:29 200 mg DAILY JADE Administration Calcium Carbonate 600 mg 08/16/24 09:00 08/25/24 09:32 Calcium Carbonate 600 Mg Tablet PO 09/15/24 08:59 600 mg QDAY JADE Administration Docusate Sodium 100 mg 08/15/24 15:13 08/24/24 23:24 Docusate Sod Liqd 100 Mg/10 Ml Udc PO 09/14/24 20:59 100 mg BID PRN Administration constipation Protocol Heparin Sodium (Porcine) 5,000 unit 08/15/24 21:00 08/22/24 11:21 Heparin Sod Inj 5000 Unit/Ml Vial SC 08/29/24 20:59 Not Given Q12HR JADE Ampicillin Sodium/Sulbactam 100 mls @ 200 mls/hr 08/21/24 08:15 08/25/24 09:31 Sodium 3 gm/ Sodium Chloride IV 08/28/24 08:14 200 mls/hr Q12H JADE Administration Lidocaine 1 patch 08/17/24 11:30 08/25/24 09:32 Lidocaine 5% 1 Patch TOP 09/16/24 11:29 Not Given DAILY JADE Megestrol Acetate 400 mg 08/15/24 15:30 08/25/24 09:32 Megestrol Acet Susp 400 Mg/10 Ml Udc PO 09/14/24 15:29 400 mg DAILY JADE Administration Metoprolol Succinate 50 mg 08/19/24 09:00 08/22/24 13:05 Metoprolol Succinate Xl 25 Mg Tabcr PO 09/18/24 08:59 Not Given QDAY JADE Midodrine 5 mg 08/23/24 07:45 08/25/24 05:36 Midodrine 5 Mg Tablet PO 09/22/24 07:44 Not Given TID JADE Mirtazapine 15 mg 08/19/24 21:00 08/24/24 20:36 Mirtazapine 15 Mg Tablet PO 09/18/24 20:59 15 mg HS JADE Administration Ondansetron HCl 4 mg 08/15/24 14:57 08/18/24 09:44 Ondansetron Inj 2 Mg/Ml Inj 2 Ml IV 09/14/24 14:56 4 mg Q6HR PRN Administration NAUSEA OR VOMITING Protocol Oxycodone HCl 5 mg 08/23/24 05:12 08/25/24 05:40 Oxycodone Hcl 5 Mg Ir Tab PO 08/28/24 05:11 5 mg Q6HR PRN Administration PAIN SCALE 4-10(Mod-Sev Pantoprazole Sodium 40 mg 08/16/24 09:00 08/25/24 09:32 Pantoprazole Inj 40 Mg Vial IVP 09/15/24 08:59 40 mg QDAY JADE Administration Plan Patient is a 74-year-old male with past medical history of CAD status post stent placement, malignant pericardial effusion, gastric adenocarcinoma with metastasis who presented to the ED initially for urinary retention. Cardiology was consulted for reassessment of pericardial effusion. #Moderate pericardial effusion in the setting of metastatic esophageal carcinoma #Paroxysmal A-fib #CAD status post stent EKG showed normal sinus rhythm. Jack Vascor 2. Echocardiogram showed small to moderate pericardial effusion near the right atrium but no evidence of cardiac tamponade. Ejection fraction 60 to 65%. Moderate RV dilatation, with RVSP at 64 mmHg, pleural effusion present, and IVC dilated. -At this time, pericardiocentesis not indicated -Continue with amiodarone 200 mg daily, metoprolol 50 mg daily -Continue to monitor signs and symptoms on telemetry -Heparin subcu currently held by primary team -Plan per primary team is to go home on hospice at discharge Rest of plan as per primary team #History of gastric carcinoma with gastric outlet obstruction #Pericardial effusion #CAP #Leukocytosis-improving #Pleural effusion s/p thoracentesis #Hypertension?resolved #Abnormal blood pressure readings #Acute metabolic encephalopathy?resolved #Acute renal failure #Electrolyte imbalance?resolved #Anion gap metabolic acidosis?resolving #Elevated lactic acidosis #History of BPH Patient's plan and care discussed with my attending, Dr. Tj Setrn MD PGY-2
--- NOTE | 2024-08-25 15:56 | PD.RESDS ---
Planned Discharge Date 08/25/24 DS: Providers Provider Date of admission: 08/15/24 13:54 Primary care physician: Phuc Sotelo MD Admitting Provider: Rahat Robbins MD Attending Provider on Admission: Jeffrey Anna DO Consults: 08/15/24 13:58 Consult to Nephrology Routine Comment: Consulting Provider: Leida Parsons 08/15/24 14:07 Consult to Oncology Stat Comment: Consulting Provider: Desmond Guevara 08/15/24 14:11 Referral Speech Therapy Routine Comment: Instructions: Hx of gastric cancer with esophagus obstruction. Difficulty swallowing. 08/15/24 15:07 Referral Registered Dietitian Routine Comment: 08/18/24 10:23 Referral Physical Therapy Routine Comment: Physician Instructions: 08/22/24 11:09 Consult to Pulmonology Routine Comment: pleural effusion Consulting Provider: Juan Richardson I 08/23/24 17:03 Consult to Cardiology Routine Comment: reaccum pericardial effusion, gastric malig Consulting Provider: Vinicio Spencer 08/24/24 13:34 Referral Hospice Stat Comment: home hospice Attending Provider on DC: Jeffrey Anna DO Discharging Provider: Jeffrey Anna DO DS: Diagnosis Problem List Completed Was Problem List Reviewed/Reconciled?: Yes Hospital Course Hospital Course Hospital course: 74-year-old male with past medical history of 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 In the ED patient came in with inability to urinate. Initially was hypotensive and hypoxic, afebrile. Initial labs were relevant for low hemoglobin (11.4), hyponatremia (127), hyperkalemia (6.7), hypochloremia (90), high anion gap metabolic acidosis (bicarb 17.2 and anion gap 20), acute renal failure (BUN 141 and creatinine 6.7), lactic acidosis (5.9, hypocalcemia (7.1, hypomagnesemia (3.5, elevated BNP 512, elevated lipase 60, elevated procalcitonin 0.99, and UA was positive for bacteria. Initial imaging included chest x-ray which showed bilateral pneumonia, EKG which showed sinus rhythm with first-degree AV block, and abdomen/pelvis CT which showed bibasilar pneumonia, cirrhosis, and ascites. Patient was started on hemodialysis by nephrology due to acute renal failure, but throughout hospital stay patient remained very uncomfortable. During hospital stay patient received a thoracentesis for the pleural effusions as well as antibiotics for pneumonia. Spoke with family multiple times and they had decided initially to go with hospice as well as that the patient decided to go with hospice and they had signed a POLST form as DNR/DNI. Afterwards they changed their mind and wanted full treatment therefore patient was continued on hemodialysis as well as antibiotics. Later on as patient continued to decline patient's family and the patient himself decided to go back on hospice given his poor prognosis. At the time of discharge patient was stable enough to be discharged home with hospice. Discharge plan: ? Continue hemodialysis as scheduled ? We have discontinued antibiotics as you have completed antibiotic regimen for pneumonia. ? Continue taking all prescribed medications as indicated, unless changes are made by hospice. ? We have sent you with home oxygen. Problem list: #Acute metabolic encephalopathy #Hx gastric carcinoma with gastric outlet obstruction #Acute renal failure #Hypocalcemia, resolved #Hypermagnesemia, resolved #Hyperkalemia, resolved #High anion gap metabolic acidosis # Lactic acidosis # Community-acquired pneumonia #Hypotension #Hx atrial fibrillation, rate controlled Case disclosed with Attending Dr. Shoshana Clemons PGY1 Status at Discharge Overall status at discharge: patient is not back to baseline Time Spent with Patient Time attestation: Total time spent providing and/or coordinating discharge services:>35 min Exam Vital Signs Temp Pulse Resp BP Pulse Ox O2 Del Method O2 Flow Rate 97.6 F 99 22 H 126/54 L 94 L Nasal Cannula 5 08/25/24 15:52 08/25/24 15:52 08/25/24 15:52 08/25/24 15:52 08/25/24 15:52 08/25/24 15:52 08/25/24 15:52 FiO2 75 08/25/24 12:00 Narrative Exam General: A/O x3, no acute distress Eyes: PERRL, EOMI. Anicteric, vision grossly intact. Ears: No ear pain, no ear discharge, Hearing grossly intact. Nose: No nasal discharge. Mouth/Throat: Dry mucous membranes, no redness, no lesions. Neck: Neck supple, non-tender, no cervical lymphadenopathy. Lungs: Clear EL to auscultation and percussion, Increased work of breathing Cardio: Normal S1/S2, regular rhythm, no murmurs, no JVD Abdomen: Soft, non-tender, no palpable masses, peristalsis present, no guarding or rebound. Extremities: Symmetrical, no significant deformities, 2+ peripheral edema , non-tender, peripheral pulses presents. Skin: No rashes, no lesions, warm to touch. Neuro: No focal neurological deficits. Discharge Plan Plan Patient Disposition: Home w/HOSPICE Care Plan Goals: ? Continue hemodialysis as scheduled ? We have discontinued antibiotics as you have completed antibiotic regimen for pneumonia. ? Continue taking all prescribed medications as indicated, unless changes are made by hospice. ? We have sent you with home oxygen. Prescriptions/Referrals Prescriptions/Med Rec: New metoprolol succinate 50 mg tablet extended release 24 hr 50 mg PO QDAY 30 Days Qty: 30 0RF Continued famotidine [Pepcid] 20 MG tablet 20 mg PO HS Qty: 0 Patient Comments: TO SUPPRESS GASTRIC ACID SECRETION finasteride 5 mg tablet 5 mg PO HS Patient Comments: TAKE 1 TABLET BY MOUTH DAILY rosuvastatin 40 mg tablet 40 mg PO HS Patient Comments: TAKE 1 TABLET BY MOUTH EVERY EVENING tamsulosin 0.4 mg Capsule 0.4 mg PO QDAY amiodarone 200 mg Tablet 200 mg PO QDAY Qty: 30 0RF midodrine 5 mg tablet 5 mg PO BID Patient Comments: TAKE 1 TABLET BY MOUTH TWICE DAILY oxycodone 5 mg tablet 5 mg PO [id number] PRN (Reason: pain) Patient Comments: TAKE 1 TO 2 TABLETS BY MOUTH EVERY 6 HOURS NEEDED zolpidem 10 mg Tablet 10 mg PO HS Discontinued mirtazapine 15 mg tablet 15 mg PO HS metoprolol succinate 100 mg Tablet Extended Release 24 Hr 100 mg PO QDAY Referrals: Phuc Sotelo MD [Primary Care Provider] - Patient/Caregiver Discharge Instructions Discharge Activity: activity as tolerated Other Discharge Activity Instructions:: ? Continue hemodialysis as scheduled ? We have discontinued antibiotics as you have completed antibiotic regimen for pneumonia. ? Continue taking all prescribed medications as indicated, unless changes are made by hospice. ? We have sent you with home oxygen. Education Materials: What Is Syncope?, ED Urinary Retention, Male Print Language: Ukrainian Stand Alone Forms: [facility] Award Info., Patient Portal Info Letter Discharge Order Discharge Orders: Discharge (Routine); Ordered 08/25/24 Ordered By: Orestes López Quality Discharge Quality Measures VTE prophylaxis MD Attestestation MD Attestation I have discussed and was present for the essential components of the discharge history, physical examination, diagnosis, and discharge treatment plan with the resident. I agree with the patient's discharge care as documented by the resident and amended herein by me. Jaswinder Anna DO. The patient understood all discharge instructions, all questions were answered satisfactorily. Patient was discharged home on hold to hospice however wish to continue hemodialysis as long as possible. The patient did have a TDC placed and also has this port for anticipation with chemotherapy which will be deferred at this time and lieu of hospice care. All questions were answered prior to discharge from the patient's family. Although this document has been carefully reviewed, there may still be some phonetic and other typographical errors. These errors are purely grammatical due to imperfections in the software program and should not be construed in any way to compromise the substance of the patient's medical care during this visit.
--- NOTE | 2024-08-25 20:04 | PC.NURSE ---
Dialysis cath intact, educated family on dialysis days Tuesday, tuesday. De-accessed port, needle intact with removal. [facility] called, stated they do not access the port.
--- NOTE | 2024-08-25 20:26 | PC.NURSE ---
Educated about pain medication, next due at 1930. Asked patient and family if need pain medication for travel, stated will be ok until when they get home to take next medication. Called family and educated about dialysis schedule, Tuesday.
--- NOTE | 2024-08-25 20:28 | PC.NURSE ---
Patients stated patient was able to urinate twice today, called Dr. López if needed to bladder scan. Did bladder scan and showed 122 mL and educated family about retention with discharge.
--- NOTE | 2024-08-26 07:24 | PC.CC ---
Late Entry 08/25/24: Rounding note: D/c pt home with [facility].
--- NOTE | 2024-08-26 07:54 | PC.CC ---
Late Entry 08/25/24 1016-Follow up conversation from Deepthi Chinchilla with [facility] for D/c plan. ASW explained that pt has not been identified as possible D/c but ASW will provide follow up following rounding meeting at 1400. From rounding meeting, pt has been cleared to D/c home with hospice. ASW informed that pts family has requested to meet with ASW for questions about dialysis. 1423-ASW followed up with Deepthi Chinchilla with [facility]. ASW provided update that pt has been cleared to D/c home. Deepthi request transport ETA. Per Deepthi Hurtado RN will follow up with ASW. ASW met with pt, pts and pts daughter at bedside. Pts daughter inquired about transport to and from dialysis upon D/c. Per daughter she is uncertain she or pts will be able to transport pt. . ASW confirmed that pt does not have [facility] and is ineligible to use [facility] transport. ASW informed pts daughter that inquiry will be made with [facility] for support. 1432-ASW spoke with Deepthi Chinchilla. Per Deepthi pts family can request support from staff at [facility] for possible support in securing transport for pt. ASW relayed information to pts family. 1531-Call from Mira with [facility]. Request transport ETA once secured. Mira states they are able to admit pt after 1800. [facility]CS, [facility] and face sheet uploaded to [facility]. 1550-Call to [facility] ETA set for 1900. 1554-ASW spoke with Mira with [facility] and provided transport ETA. Bedside RN and attending team updated on transport ETA. ASW will remain available as needed for pt care and staff support.
== END 2024-08-25 19:23 | disposition hospice, home (50) | DRG 673 ==
LOC: SERX 08:28 → SERHOLD 14:13 → S2NX 23:43
PROVIDERS: Student in an Organized Health Care Education/Training Program; Admitting Provider Student in an Organized Health Care Education/Training Program; Emergency Provider Emergency Medicine; PCP Family Medicine; Visit Provider Student in an Organized Health Care Education/Training Program
DX: N17.0 Acute kidney failure with tubular necrosis (principal); G93.41 Metabolic encephalopathy; J18.9 Pneumonia, unspecified organism; J96.01 Acute respiratory failure with hypoxia; I13.11 Hypertensive heart and chronic kidney disease without heart failure, with stage 5 chronic kidney disease, or end stage renal disease; C16.9 Malignant neoplasm of stomach, unspecified; E87.20 Acidosis, unspecified; K31.1 Adult hypertrophic pyloric stenosis; E87.1 Hypo-osmolality and hyponatremia; J44.0 Chronic obstructive pulmonary disease with (acute) lower respiratory infection; J90 Pleural effusion, not elsewhere classified; R18.8 Other ascites; C78.7 Secondary malignant neoplasm of liver and intrahepatic bile duct; E83.51 Hypocalcemia; E87.5 Hyperkalemia; E83.41 Hypermagnesemia; I44.0 Atrioventricular block, first degree; B19.20 Unspecified viral hepatitis C without hepatic coma; K74.60 Unspecified cirrhosis of liver; K80.20 Calculus of gallbladder without cholecystitis without obstruction; N18.6 End stage renal disease; G47.00 Insomnia, unspecified; E78.5 Hyperlipidemia, unspecified; N40.1 Benign prostatic hyperplasia with lower urinary tract symptoms; F32.A Depression, unspecified; I25.10 Atherosclerotic heart disease of native coronary artery without angina pectoris; I95.9 Hypotension, unspecified; R33.8 Other retention of urine; I48.0 Paroxysmal atrial fibrillation; Z17.32 Human epidermal growth factor receptor 2 negative status; F17.210 Nicotine dependence, cigarettes, uncomplicated; Z66 Do not resuscitate; Z51.5 Encounter for palliative care; Z86.73 Personal history of transient ischemic attack (TIA), and cerebral infarction without residual deficits; Z95.5 Presence of coronary angioplasty implant and graft; Z79.899 Other long term (current) drug therapy
CPT/HCPCS: 36415; 36600; 71045; 74176; 74177; 77012; 80048; 80053; 80069; 80074; 81001; 82150; 82803; 82945; 83605; 83615; 83690; 83735; 83880; 84100; 84132; 84145; 84157; 84484; 85025; 85610; 85730; 86580; 87040; 87070; 87075; 87081; 87086; 87205; 87811; 89051; 92526; 92610; 93005; 93306; 93930; 93970; 94640; 94664; 96372; 96374; 96375; 97162; 99285; A4649; A9270; C1750; C1769; J0295; J0456; J0613; J0696; J1200; J1642; J1643; J1815; J2405; J2470; J3010; J3490; J7030; J7040; J7050; J7070; P9047; Q5105; Q9967; J1644